=== PATIENT | male | born 1960 | race Caucasian/White ===

== ENCOUNTER → 2017-03-13 | Outpatient (CLI) | payer OTHER ==
[2017-03-13 12:40] LABS: Basophils % (A) 0 %; CH 35.1; CHCM 35.2; Eosinophils # (A) 0.1 k/uL (0-0.7); Eosinophils % (A) 2 %; HCT 38.9 % (39.0-53.0); HDW 2.48; HGB 13.6 gm/dL (13.0-17.5); Luc # (Auto) 0.18; Luc % (Auto) 3; Lymphocytes % (A) 17 %; MCH 35.1 pg (25.0-35.0); MCHC 35.1 g/dL (31.0-37.0); Mean Platelet Volume 9.1; Monocytes # (A) 0.6 k/uL (0-1.0); Monocytes % (A) 10 %; Neutrophils # (A) 3.9 k/uL (1.3-7.7); Neutrophils % (A) 68 %; RBC 3.89 m/uL (4.30-5.90); RDW 12.1 % (11.5-15.5); WBC 5.7 k/uL (3.8-10.6); WBC (Perox) 6.07
[2017-03-13 13:28] LABS: Large Platelets Present
== END | disposition home or self-care (01) ==
LOC: LABWHC1 11:44
PROVIDERS: ATTEND Internal Medicine Hematology & Oncology
DX: C04.9 Malignant neoplasm of floor of mouth, unspecified (principal)
CPT/HCPCS: 36415; 85025

== ENCOUNTER 2017-07-19 06:44 | Day surgery (SDC) | payer MEDICAID, OTHER ==
[2017-07-18 09:23] VITALS: BMI 18.7
[~2017-07-19 06:44] MED LIST: ALPRAZolam 0.25 MG TAB PO PRN; ASPIRIN 325 MG TAB PO ONE; SODIUM CHLORIDE 0.9% 1,000 ML in EMPTY BAG 1 BAG IV ONE
[2017-07-19] MEDS ORDERED: LIDOCAINE 2% INJ 20 MG/ML (20 ML MDV) ONE (07:12)
[2017-07-19 07:27] LABS: Basophils % (A) 0 %; CH 34.8; CHCM 35.5; Eosinophils # (A) 0.2 k/uL (0-0.7); Eosinophils % (A) 2 %; HCT 40.4 % (39.0-53.0); HDW 2.36; HGB 13.9 gm/dL (13.0-17.5); Luc # (Auto) 0.16; Luc % (Auto) 2; Lymphocytes # (A) 1.1 k/uL (1.0-4.8); Lymphocytes % (A) 13 %; MCH 33.8 pg (25.0-35.0); MCHC 34.4 g/dL (31.0-37.0); MCV 98.3 fL (80.0-100.0); Mean Platelet Volume 9.4; Monocytes # (A) 0.5 k/uL (0-1.0); Monocytes % (A) 5 %; Neutrophils # (A) 6.7 k/uL (1.3-7.7); Neutrophils % (A) 78 %; RBC 4.11 m/uL (4.30-5.90); RDW 11.8 % (11.5-15.5); WBC 8.5 k/uL (3.8-10.6); WBC (Perox) 8.43
[2017-07-19 08:08] LABS: Manual Review Performed; RBC Morphology Normal
== END 2017-07-19 08:16 | disposition home or self-care (01) ==
LOC: CATHCVL 06:44
PROVIDERS: ATTEND Internal Medicine Cardiovascular Disease
DX: I25.5 Ischemic cardiomyopathy (principal); Z53.8 Procedure and treatment not carried out for other reasons; E11.9 Type 2 diabetes mellitus without complications; Z79.82 Long term (current) use of aspirin; Z79.899 Other long term (current) drug therapy
CPT/HCPCS: 85025

== ENCOUNTER → 2017-09-14 | Outpatient (CLI) | payer MEDICAID, OTHER ==
--- NOTE | 2017-09-15 08:56 | CT ---
EXAMINATION TYPE: CT cervical spine wo con DATE OF EXAM: 09/14/2017 COMPARISON: NONE HISTORY: Cervicalgia. CT DLP: 462 mGycm. Automated Exposure Control for Dose Reduction was Utilized. TECHNIQUE: CT scan of the cervical spine is obtained without contrast, axial images are obtained, sa gittal and coronal reformatted images are also reviewed. FINDINGS: Cervical spine is visualized in its entirety from C1 through upper thoracic levels, demonst rates satisfactory vertebral body heights without evidence of acute fracture. Prevertebral soft tissu e appears within normal limits. The C1-C2 articulation is within normal limits on the coronal images . There is a focal reversal of the usual cervical lordosis from C4 through C7. The facets maintained no rmal alignment. Multilevel facet arthropathy, uncovertebral hypertrophy, anterior osteophytes, interv ertebral disc space narrowing and endplate sclerosis are present. There is resultant mild left neural foraminal narrowing at C2-C3, moderate bilateral neural foraminal narrowing at C3-C4, severe left neural foraminal narrowing at C4-C5, moderate left neural foraminal narrowing at C5-C6, mild bilateral neural foraminal narrowing at C6-C7 and C7-T1. Reversal of the usu al cervical lordosis also creates mild spinal canal stenosis at C5-C6 and C6-C7. Small disc osteophyt e complexes are seen at C2-C3 and C3-C4 without significant spinal canal stenosis. Soft tissue algorithm is limited by patient motion in the upper images including the oropharynx. Surg ical sutures are seen within the right anterior neck. Incidental note is made of carotid calcific ath eromatous changes bilaterally. IMPRESSION: 1. There is no acute fracture or dislocation evident in the cervical spine. 2. Focal reversal of the usual cervical lordosis from C4 through C7 creating mild spinal canal stenos is at C5-C6 and C6-C7. 3. Moderate multilevel degenerative disc disease resulting in variable degrees of neural foraminal st enosis as described above.
--- NOTE | 2017-09-15 08:58 | CT ---
EXAMINATION TYPE: CT lumbar spine wo con DATE OF EXAM: 09/14/2017 COMPARISON: NONE HISTORY: Lumbago. CT DLP: 920 mGycm CONTRAST: None TECHNIQUE: CT of the lumbar spine is performed on a spiral scan at 3 mm thick sections. Reconstructed images are performed in the coronal and sagittal planes. FINDINGS: T11-T12: No focal disc herniation or significant disc bulge is evident. No spinal canal stenosis or neural foraminal stenosis is present. Schmorl's node is at the superior endplate of T11. T12-L1: No focal disc herniation or significant disc bulge is evident. No spinal canal stenosis or neural foraminal stenosis is present. Schmorl's node at the superior endplate of T12. L1-L2: There is loss of disc height to this level. Vacuum disc phenomenon is present. Posterior endpl ate spurring has mild anterior thecal sac compression. No AP spinal canal stenosis present. Neural fo ramen are patent. L2-L3: There is loss of disc height with vacuum disc phenomenon present. Posterior endplate spurring is present has mild anterior thecal sac compression. No AP spinal canal stenosis is present. Right fo raminal narrowing is present. L3-L4: Posterior endplate spurring is present with mild to moderate anterior thecal sac compression. Spinal canal narrowing without stenosis present. Ligamentum flavum laxity has posterior lateral theca l sac compression. Facet degenerative changes are present. Moderate Right foraminal narrowing is pres ent. L4-L5: Vacuum disc phenomenon and loss of disc height is present. Endplate spurring with associated d isc material has moderate anterior thecal sac compression. No AP spinal canal stenosis present. Bilat eral severe foraminal narrowing is present. L5-S1: Posterior endplate spurring is present. There is associated disc material with mild anterior t hecal sac compression. No AP spinal canal stenosis is present. There is loss of disc height and vacuu m disc phenomenon present. Disc bulging into the bilateral foramen contributing to foraminal stenosis greater on the left. Vertebral alignment appears straightened.. IMPRESSION: 1. Multilevel degenerative disc changes with loss of disc height and vacuum disc phenomenon. 2. Endplate spurring with some associated residual disc material has mild to moderate anterior thecal sac compression throughout the lumbar spine. No stenosis is present. 3. Foraminal narrowing due to endplate spurring and disc material through the lumbar spine increasing into the lower lumbar spine, greatest at L5-S1.
== END | disposition home or self-care (01) ==
LOC: RADCTMAIN 17:36
PROVIDERS: ATTEND Psychiatry & Neurology Neurology
DX: M48.02 Spinal stenosis, cervical region (principal); M99.71 Connective tissue and disc stenosis of intervertebral foramina of cervical region; M99.73 Connective tissue and disc stenosis of intervertebral foramina of lumbar region; M50.30 Other cervical disc degeneration, unspecified cervical region; M47.816 Spondylosis without myelopathy or radiculopathy, lumbar region; M46.06 Spinal enthesopathy, lumbar region; M43.8X2 Other specified deforming dorsopathies, cervical region; G95.29 Other cord compression
CPT/HCPCS: 72125; 72131

== ENCOUNTER 2017-10-10 20:39 | Emergency (ER) | payer OTHER ==
[2017-10-10 21:03] VITALS: BP 100/59; PULSE 107; RESP 18; TEMP 97.6
--- NOTE | 2017-10-10 21:28 | ED ---
General Adult HPI - General Chief complaint: Recheck/Abnormal Lab/Rx Stated complaint: Feeding Tube came out Time Seen by Provider: 10/10/17 21:17 Source: patient, RN notes reviewed Mode of arrival: ambulatory Limitations: no limitations - History of Present Illness Initial comments: This is a 57-year-old male who presents to the emergency department with chief complaint of loss of feeding tube. Patient states that approximately 30 minutes prior to arrival he coughed and his feeding tube accidentally dislodged from his abdomen. Patient states that this feeding tube has been present since last October. Patient denies any issues with his feeding tube. He denies any abdominal pain, nausea or vomiting. He has no other complaints. I asked patient which doctor he follows up with regarding his feeding tube and patient states that his surgeon is in [place]. - Related Data Home Medications Medication Instructions Recorded Confirmed Baclofen [Lioresal] 10 mg PO HS 07/18/17 08/08/17 Chlorhexidine Gluconate [Periogard] 15 ml PO DAILY 07/18/17 08/08/17 Gabapentin Oral Soln [Neurontin 10 ml PO Q8H 07/18/17 08/08/17 Oral Soln] HYDROcodone/APAP 7.5-325MG [[place] 1 tab PO Q6HR PRN 07/18/17 08/08/17 7.5-325] LORazepam [Ativan] 2 mg PO DAILY PRN 07/18/17 08/08/17 Melatonin 10 mg PO HS 07/18/17 08/04/17 Valproic Acid Oral Soln [Depakene 10 ml PO Q8H 07/18/17 08/08/17 Syrup] Allergies Allergy/AdvReac Type Severity Reaction Status Date / Time No Known Allergies Allergy Verified 10/10/17 20:58 Review of Systems ROS Statement: Those systems with pertinent positive or pertinent negative responses have been documented in the HPI. ROS Other: All systems not noted in ROS Statement are negative. Past Medical History Past Medical History: Cancer, COPD, Myocardial Infarction ([place]) History of Any Multi-Drug Resistant Organisms: None Reported Additional Past Surgical History / Comment(s): trachestomy Past Psychological History: No Psychological Hx Reported Smoking Status: Current every day smoker Past Alcohol Use History: Occasional Past Drug Use History: None Reported General Exam - General Exam Comments Initial Comments: General: Awake and alert, well-developed; in no apparent distress. HEENT: Head atraumatic, normocephalic. Pupils are equal, round and reactive to light. Extraocular movements intact. Neck: Tracheostomy present and intact with surrounding bandage. Cardiovascular: Regular rate and rhythm. No murmurs, rubs or gallops. Chest symmetrical. Respiratory: Lungs clear to auscultation bilaterally. No wheezes, rales or rhonchi. Normal respiratory effort with no use of accessory muscles. Abdomen: Soft, non-tender, non-distended. No rigidity, rebound or guarding. Normal bowel sounds in all 4 quadrants. Musculoskeletal: Normal ROM, no tenderness bilateral upper and lower extremities. Ambulating normally. Skin: [place], warm and dry without rashes or lesions. Neurological: Alert and oriented x3. CN II-XII grossly intact. Speech is fluent and answers are appropriate. No focal neuro deficits. Psychiatric: Normal mood and affect. No overt signs of depression or anxiety noted. Limitations: no limitations Course Vital Signs 10/10/17 20:58 Temperature 97.6 F Pulse Rate 107 H Respiratory 18 Rate Blood Pressure 100/59 O2 Sat by Pulse 96 Oximetry - Reevaluation(s) Reevaluation #1: One attempt was made by physician assistant professor of dramaOwen to place a 20-gauge feeding tube. This was unsuccessful. A 14-ivorian Turcios catheter tube was placed successfully by Dr. Rojas. 10/10/17 22:35 Medical Decision Making - Medical Decision Making This is a 57-year-old male who presents to the emergency department with chief complaint of his feeding tube coming out. Several attempts were made to replace the feeding tube, however the material we have is too large. A 14 ivorian turcios cathether was successfully placed. Patient is to call his surgeon tomorrow morning and set up an appointment for follow-up. Patient is in no acute distress and will be discharged home. He is in agreement with plan and voices understanding. All questions were answered. Disposition Clinical Impression: Complication of feeding tube Disposition: HOME SELF-CARE Condition: Good Instructions: How to Use and Care for Your PEG Tube (ED) Additional Instructions: Please call your surgeon tomorrow morning and schedule a follow-up. Please follow up with primary care provider within 1-2 days. Return to emergency department if symptoms should worsen or any concerns arise. Referrals: Alina Campos MD [Primary Care Provider] - 1-2 days Time of Disposition: 22:47
== END 2017-10-10 22:55 | disposition home or self-care (01) ==
LOC: EC 20:39
DX: K94.23 Gastrostomy malfunction (principal); F17.200 Nicotine dependence, unspecified, uncomplicated; Z85.9 Personal history of malignant neoplasm, unspecified; Z79.899 Other long term (current) drug therapy
CPT/HCPCS: 99282

== ENCOUNTER → 2018-01-08 | Outpatient (CLI) | payer MEDICAID, OTHER ==
[2018-01-08 12:59] LABS: HCT 45.8 % (39.0-53.0); HGB 15.4 gm/dL (13.0-17.5); MCH 34.1 pg (25.0-35.0); MCHC 33.6 g/dL (31.0-37.0); MCV 101.3 fL (80.0-100.0); Mean Platelet Volume 7.8; Platelet Count 105 k/uL (150-450); RBC 4.52 m/uL (4.30-5.90); WBC 10.4 k/uL (3.8-10.6)
[2018-01-08 13:11] LABS: Anion Gap 12 mmol/L; Blood Urea Nitrogen 20 mg/dL (9-20); Carbon Dioxide 30 mmol/L (22-30); Chloride 89 mmol/L (98-107); Potassium 4.6 mmol/L (3.5-5.1); Sodium 131 mmol/L (137-145)
== END | disposition home or self-care (01) ==
LOC: LABPAT 12:45
PROVIDERS: ATTEND Internal Medicine Cardiovascular Disease
DX: Z01.812 Encounter for preprocedural laboratory examination (principal); R07.9 Chest pain, unspecified
CPT/HCPCS: 36415; 80051; 82565; 84520; 85027

== ENCOUNTER 2018-01-11 06:30 | Day surgery (SDC) | payer MEDICAID, OTHER ==
[2018-01-10 09:00] VITALS: BMI 18.6
--- NOTE | 2018-01-10 13:37 | HP ---
HISTORY AND PHYSICAL This is a 57-year-old gentleman with history of oral cancer, who was initially referred to me for preop cardiac evaluation prior to reconstructive surgery. A stress test revealed ischemic cardiomyopathy and he was advised to undergo cardiac catheterization. The patient had severe thrombocytopenia due to which his cardiac catheterization was held up. He has subsequently been seen by coin collector and was started on steroids with which the platelet count has improved. He will undergo cardiac catheterization by me tomorrow, understands risks, benefits and alternatives. PAST MEDICAL HISTORY: Significant for oral cancer. MEDICATIONS: Medications include hydrocodone, lorazepam, , metoprolol, . ALLERGIES: No known drug allergies. FAMILY HISTORY: Significant for premature coronary artery disease. SOCIAL HISTORY: He denies current smoking, EtOH abuse, or drug abuse. REVIEW OF SYSTEMS: HEENT: As described above. CARDIAC: Negative. RESPIRATORY: Significant shortness of breath. GI: Negative. GENITOURINARY: Negative. ALLERGY/IMMUNOLOGY: Negative. SKIN: Negative. MUSCULOSKELETAL: Significant for arthritis. PSYCHOSOCIAL: Negative. ENDOCRINE: Negative. DERM: Negative. CONSTITUTIONAL: Negative. ONCOLOGICAL: Negative. Rest of the system review is not relevant. PHYSICAL EXAM: On exam, patient is comfortable at rest. Vital signs are stable. There is no jugular venous distention. Chest exam reveals diminished air entry at the bases. Heart exam reveals first and second heart sounds. Systolic murmur at the apex. Abdomen is soft and nontender. Examination of the extremities did not reveal any edema. Peripheral pulses are palpable. ASSESSMENT: 1. Ischemic cardiomyopathy. 2. Preoperative cardiac evaluation. PLAN: Patient will undergo cardiac catheterization by me. COLBY / TELLY: [id number] /
[~2018-01-11 06:30] MED LIST changes: +ALPRAZolam 0.5 MG TAB PO PRN; -ASPIRIN 325 MG TAB PO ONE; +ASPIRIN 325 MG TAB PO STA; +ATORVASTATIN 80 MG TAB PO STA; +NITROGLYCERIN SL TABS 0.4 MG TAB SUBLINGUAL PRN
[2018-01-11 07:09] VITALS: TEMP 97.4
[2018-01-11] MEDS ORDERED: LIDOCAINE 2% INJ 20 MG/ML (20 ML MDV) ONE (07:17)
[2018-01-11] MEDS ORDERED: MIDAZOLAM 2 MG/2 ML VIAL ONE (07:30)
[2018-01-11] MEDS ORDERED: MIDAZOLAM 2 MG/2 ML VIAL IV ONE (07:31)
[2018-01-11] MEDS ORDERED: LIDOCAINE 2% INJ 20 MG/ML SQ ONE (07:34)
[2018-01-11] MEDS ORDERED: IOPAMIDOL-370 50ML BTL INJ ONE (07:51)
[2018-01-11] MEDS ORDERED: IOPAMIDOL-370 125ML BTL INJ ONE (07:51)
[2018-01-11] MEDS ORDERED: RX INFO: IV CONTRAST WAS GIVEN 1 EACH MISC MISCELLANE PRN (08:01)
[2018-01-11] MEDS ORDERED: SODIUM CHLORIDE 0.9% 1,000 ML IV SCH (08:15)
--- NOTE | 2018-01-11 08:35 | CC ---
CARDIAC CATHETERIZATION REPORT INDICATION: Ischemic cardiomyopathy. This is a 57-year-old gentleman who was initially referred to sd for preop cardiac evaluation prior to reconstructive orofacial surgery following treatment for oral cancer. The patient has a tracheostomy. His initial evaluation revealed ischemic cardiomyopathy and he was advised to undergo cardiac catheterization. However, the patient's platelet count was very low, recently had been treated with steroids and the platelet count had come up and was advised to proceed with cardiac catheterization. He had been explained of risks, benefits and alternatives, including the risk of bleeding. The patient is currently on aspirin and metoprolol, which are the only 2 pills he is able to take. PROCEDURE NOTE: After obtaining informed consent, left heart catheterization, coronary angiogram and LV gram are performed via the right femoral artery using standard Tish catheters. The patient tolerated the procedure well without any obvious immediate complications. A femoral angiogram was performed and decision was made for manual hemostasis. The patient received moderate conscious sedation and the total sedation time was 22 minutes. FINDINGS: 1. HEMODYNAMICS: Left ventricular end-diastolic pressure is 8 to 10 mm. There is no significant gradient across the aortic valve. 2. LEFT VENTRICULOGRAM: Left ventriculogram is performed in SHAH position and shows a dilated left ventricle with severe LV dysfunction with an ejection fraction of 25%. There is evidence of prior extensive inferior wall myocardial infarction. 3. ANGIOGRAPHIC DATA: 4. Left main coronary artery: Left main coronary artery appears heavily calcified. There is mild to moderate atherosclerotic plaque in the ostial portion. However, the stenosis does not seem significant. There is good of the dye and we do not see any significant ventricularization. It divides into left anterior descending coronary artery and circumflex coronary artery, both of which are heavily calcified. There is mild to moderate atherosclerotic plaque involving LAD. Circumflex coronary artery shows a focal 95% stenosis in its proximal part. In its midportion, it is totally occluded and there are collaterals to the distal circumflex coronary artery from the left system. Right coronary artery is a small nondominant vessel. CONCLUSION: 1. Three-vessel coronary artery disease as described above with chronic total occlusion of the mid circumflex coronary artery with [id number] collaterals to the distal circumflex coronary artery. 2. Mild moderate atherosclerotic plaque involving the left main and left anterior descending artery. PLAN: The patient's vessels are not amenable to catheter based revascularization at this time. He will be managed with medical therapy and will proceed with his noncardiac surgery understanding that he is at increased risk for perioperative cardiac events. I am going to have the on-call fish roe technician review the angiographic data. COLBY / TELLY: [id number] /
[2018-01-11 08:51] VITALS: RESP 16
[2018-01-11 14:44] VITALS: BP 118/79; PULSE 75
== END 2018-01-11 15:32 | disposition home or self-care (01) ==
LOC: CATHCVL 06:30
PROVIDERS: ATTEND Internal Medicine Cardiovascular Disease
DX: I25.10 Atherosclerotic heart disease of native coronary artery without angina pectoris (principal); I25.82 Chronic total occlusion of coronary artery; I25.5 Ischemic cardiomyopathy; Z82.49 Family history of ischemic heart disease and other diseases of the circulatory system; Z79.82 Long term (current) use of aspirin; Z79.899 Other long term (current) drug therapy
CPT/HCPCS: 93458; C1894; C1769; J2001; J2250; Q9967 ×2

== ENCOUNTER 2018-03-12 19:56 | Emergency (ER) | payer MEDICAID, OTHER ==
--- NOTE | 2018-03-12 21:09 | ED ---
General Adult HPI - General Chief complaint: Extremity Injury, Lower Stated complaint: Fall/Leg Pain Time Seen by Provider: 03/12/18 20:52 Source: patient, family, RN notes reviewed Mode of arrival: wheelchair Limitations: physical limitation - History of Present Illness Initial comments: Patient 57-year-old male presented to the emergency room today with chief complaint of his right knee giving out 2 days ago. Patient states that he gave out and he landed right on top of the knee. He states that his had a difficult time with ambulation since. Patient does admit to some pain down into the right ankle and foot as well. He states since swelling to his feet bilaterally last few days. He denies any other complaints or injuries. Patient denies any recent fever, chills, shortness of breath, chest pain, back pain, abdominal pain , headaches or visual changes, or any other complaints. - Related Data Home Medications Medication Instructions Recorded Confirmed Baclofen [Lioresal] 10 mg PEG/G-TUBE HS 07/18/17 01/11/18 Chlorhexidine Gluconate [Periogard] 15 ml PEG/G-TUBE DAILY 07/18/17 01/11/18 Gabapentin Oral Soln [Neurontin 10 ml PEG/G-TUBE Q8H 07/18/17 01/11/18 Oral Soln] HYDROcodone/APAP 7.5-325MG [[place] 1 tab PEG/G-TUBE Q6HR PRN 07/18/17 01/11/18 7.5-325] LORazepam [Ativan] 2 mg PEG/G-TUBE DAILY PRN 07/18/17 01/11/18 Melatonin 10 mg PEG/G-TUBE HS PRN 07/18/17 01/10/18 Valproic Acid Oral Soln [Depakene 10 ml PEG/G-TUBE Q8H 07/18/17 01/11/18 Syrup] Aspirin [Adult Low Dose Aspirin EC] 81 mg PEG/G-TUBE DAILY 01/10/18 01/11/18 Metoprolol Tartrate [Lopressor] 12.5 mg PEG/G-TUBE BID 01/10/18 01/11/18 predniSONE 20 mg PEG/G-TUBE BID 01/10/18 01/11/18 Allergies Allergy/AdvReac Type Severity Reaction Status Date / Time No Known Allergies Allergy Verified 01/10/18 08:46 Review of Systems ROS Statement: Those systems with pertinent positive or pertinent negative responses have been documented in the HPI. ROS Other: All systems not noted in ROS Statement are negative. Past Medical History Past Medical History: Cancer, COPD, Myocardial Infarction ([place]) History of Any Multi-Drug Resistant Organisms: None Reported Past Surgical History: Heart Catheterization Additional Past Surgical History / Comment(s): trachestomy, oral surgery for cancer removal, Past Psychological History: Depression Smoking Status: Current every day smoker Past Alcohol Use History: Occasional Past Drug Use History: None Reported General Exam - General Exam Comments Initial Comments: General: The patient is awake and alert, in no distress, and does not appear acutely ill. Neck: The neck is supple, there is no tenderness or JVD. Cardiovascular: There is a regular rate and rhythm. No murmur, rub or gallop is appreciated. Respiratory: Lungs are clear to auscultation, respirations are non-labored, breath sounds are equal. No wheezes, stridor, rales, or rhonchi. Musculoskeletal: Good range of motion. Mild tenderness to the distal aspect of the right foot over the first and second metatarsals. Patient does have mild tenderness over the anterior right knee. Pedal pulse 2+ bilaterally. Neurological: A&O x 3. CN II-XII intact, There are no obvious motor or sensory deficits. Coordination appears grossly intact. Speech is normal. Skin: Skin is warm and dry and no rashes or lesions are noted. Psychiatric: Normal mood and affect. Limitations: physical limitation Course Vital Signs 03/12/18 03/12/18 20:11 21:15 Temperature 97 F L Pulse Rate 111 H 112 H Respiratory 18 22 Rate Blood Pressure 107/53 107/68 O2 Sat by Pulse 95 95 Oximetry Medical Decision Making - Medical Decision Making Patient's x-rays reviewed and does show a nondisplaced spiral fracture of the tibia with possible fracture to the fibula head. Results were discussed with the patient. Patient does take [place] at home and uses a pill employment educational coord which he states broken he's been unable to his [place]. Patient endorsed pain medication here in emergency room. He is advised follow-up with orthopedics. Given a prescription for crutches. Patient's heart rate mildly elevated here in the emergency room but is been out of his pain medication. Patient also admits does not like hospitals. Disposition Clinical Impression: Tibia fracture Disposition: HOME SELF-CARE Condition: Good Instructions: Leg Fracture (ED) Additional Instructions: Please follow-up orthopedics tomorrow. Please place until follow-up appointment using crutches with nonweightbearing. Please return to emergency room for any concerns. Is patient prescribed a controlled substance at d/c from ED?: No Referrals: Alina Capmos MD [Primary Care Provider] - 1-2 days Giorgio Padilla MD [STAFF PHYSICIAN] - 1-2 days Time of Disposition: 22:33
[2018-03-12 21:17] VITALS: RESP 22; TEMP 97
--- NOTE | 2018-03-12 21:41 | XR ---
EXAMINATION TYPE: XR ankle complete RT DATE OF EXAM: 03/12/2018 COMPARISON: NONE HISTORY: Ankle pain TECHNIQUE: 3 views FINDINGS: Ankle mortise is anatomic. I see no fracture nor dislocation. Subtalar joint is intact. IMPRESSION: Soft tissue swelling. Otherwise negative right ankle exam.
--- NOTE | 2018-03-12 21:42 | XR ---
EXAMINATION TYPE: XR foot complete RT DATE OF EXAM: 03/12/2018 COMPARISON: NONE HISTORY: Fall. Foot pain. TECHNIQUE: 3 views FINDINGS: Metatarsals appear intact. I see no fracture nor dislocation. IMPRESSION: No acute abnormality of the right foot. Accessory ossicle noted at the base of the fifth metatarsal.
--- NOTE | 2018-03-12 21:46 | XR ---
EXAMINATION TYPE: XR knee complete RT DATE OF EXAM: 03/12/2018 COMPARISON: NONE HISTORY: Knee pain TECHNIQUE: 3 views FINDINGS: I see no fracture nor dislocation at the knee joint. There is oblique fracture proximal sha ft of the tibia. There is vascular calcification. IMPRESSION: Acute oblique fracture proximal shaft of the tibia. There is probably also nondisplaced f racture of the head of the fibula.
--- NOTE | 2018-03-12 21:48 | XR ---
EXAMINATION TYPE: XR tibia fibula RT DATE OF EXAM: 03/12/2018 COMPARISON: NONE HISTORY: Pain. Fall. TECHNIQUE: 4 views FINDINGS: There is nondisplaced spiral fracture proximal shaft of the tibia. Ankle joint appears inta ct. IMPRESSION: Nondisplaced fracture of the proximal tibia.
[2018-03-12] MEDS ORDERED: MORPHINE SULFATE 4 MG/ML SYRINGE IM STA (22:31)
[2018-03-12 22:36] VITALS: BP 104/65; PULSE 105
== END 2018-03-12 22:53 | disposition home or self-care (01) ==
LOC: EC 19:56
DX: S82.244A Nondisplaced spiral fracture of shaft of right tibia, initial encounter for closed fracture (principal); I25.2 Old myocardial infarction; F32.9 Major depressive disorder, single episode, unspecified; F17.200 Nicotine dependence, unspecified, uncomplicated; Z98.890 Other specified postprocedural states; Z79.52 Long term (current) use of systemic steroids; Z79.82 Long term (current) use of aspirin; Z79.899 Other long term (current) drug therapy; W18.39XA Other fall on same level, initial encounter; Y92.000 Kitchen of unspecified non-institutional (private) residence as the place of occurrence of the external cause; Y93.01 Activity, walking, marching and hiking
CPT/HCPCS: 73590; 73562; 73610; 73630; 99283; 29505; 96372; J2270

== ENCOUNTER → 2018-03-16 | Outpatient (CLI) | payer MEDICAID, OTHER ==
--- NOTE | 2018-03-16 10:50 | MR ---
EXAMINATION TYPE: MR brain wo/w con DATE OF EXAM: 03/16/2018 COMPARISON: None HISTORY: Syncope TECHNIQUE: Multiplanar, multisequence images of the brain and brainstem is performed without and with IV contras t, utilizing 7.5 mL intravenous Gadavist . FINDINGS: Diffusion weighted images demonstrate no evidence of a recent infarct or other diffusion ab normality. There is a nasal septal deviation and changes of chronic sinusitis. Nodular pattern to the right MCA may represent a small 2 mm aneurysm. There is mild to moderate generalized degenerative change. Midline structures demonstrate normal morp hology. The craniocervical junction appears within normal limits. Post contrast images demonstrate no abnormal enhancement. Signal seen adjacent to the cerebellar tentorium bilaterally appears to be artifactual White matter: There is mild confluent areas of abnormal signal surrounding both ventricles. Approximately 15 areas of abnormal signal scattered throughout the white matter bilaterally. The larg est within the left parietal lobe measuring 6 mm. No enhancing lesions No callosal lesions. IMPRESSION: 1. Nonspecific white matter changes consistent E seen with remote microvascular ischemia. Other etiol ogies including demyelinating process not excluded. 2. The nodular prominence the right MCA bifurcation. Correlate with MRA enterprise of [place] exclude smal l aneurysm.
== END | disposition home or self-care (01) ==
LOC: RADMRIMAIN 09:24
PROVIDERS: ATTEND Psychiatry & Neurology Pain Medicine
DX: R90.82 White matter disease, unspecified (principal)
CPT/HCPCS: 70553; A9581

== ENCOUNTER 2018-03-30 14:47 | Emergency (ER) | payer MEDICAID, OTHER ==
[2018-03-30 15:02] VITALS: BP 112/61; PULSE 117; RESP 18
--- NOTE | 2018-03-30 15:17 | ED ---
General Adult HPI - General Chief complaint: Recheck/Abnormal Lab/Rx Stated complaint: Throat Pic came out Time Seen by Provider: 03/30/18 15:09 Source: patient, RN notes reviewed, old records reviewed Mode of arrival: wheelchair Limitations: no limitations - History of Present Illness Initial comments: 67-year-old male presents for PEG tube evaluation. Patient states that this morning his PEG tube came out. He states that yesterday evening he felt a pop and has been loose since that time. She has no other complaints. PEG tube balloon is ruptured. - Related Data Home Medications Medication Instructions Recorded Confirmed Baclofen [Lioresal] 10 mg PEG/G-TUBE HS 07/18/17 03/30/18 Chlorhexidine Gluconate [Periogard] 15 ml PEG/G-TUBE DAILY 07/18/17 03/30/18 Gabapentin Oral Soln [Neurontin 10 ml PEG/G-TUBE Q8H 07/18/17 03/30/18 Oral Soln] HYDROcodone/APAP 7.5-325MG [[place] 1 tab PEG/G-TUBE Q6HR PRN 07/18/17 03/30/18 7.5-325] LORazepam [Ativan] 2 mg PEG/G-TUBE DAILY PRN 07/18/17 03/30/18 Melatonin 10 mg PEG/G-TUBE HS PRN 07/18/17 03/30/18 Valproic Acid Oral Soln [Depakene 10 ml PEG/G-TUBE Q8H 07/18/17 03/30/18 Syrup] Aspirin [Adult Low Dose Aspirin EC] 81 mg PEG/G-TUBE DAILY 01/10/18 03/30/18 Metoprolol Tartrate [Lopressor] 12.5 mg PEG/G-TUBE BID 01/10/18 03/30/18 predniSONE 20 mg PEG/G-TUBE BID 01/10/18 03/30/18 Allergies Allergy/AdvReac Type Severity Reaction Status Date / Time No Known Allergies Allergy Verified 03/30/18 15:02 Review of Systems ROS Statement: Those systems with pertinent positive or pertinent negative responses have been documented in the HPI. ROS Other: All systems not noted in ROS Statement are negative. Past Medical History Past Medical History: Cancer, COPD, Myocardial Infarction ([place]) History of Any Multi-Drug Resistant Organisms: None Reported Past Surgical History: Heart Catheterization Additional Past Surgical History / Comment(s): trachestomy, oral surgery for cancer removal, Past Psychological History: Depression Smoking Status: Current every day smoker Past Alcohol Use History: Occasional Past Drug Use History: None Reported General Exam Limitations: no limitations General appearance: alert, in no apparent distress Head exam: Present: atraumatic, normocephalic Eye exam: Present: normal appearance, PERRL Neck exam: Present: other (Tracheostomy) Respiratory exam: Present: normal lung sounds bilaterally. Absent: respiratory distress Cardiovascular Exam: Present: normal rhythm, tachycardia GI/Abdominal exam: Present: soft, other (PEG tube os not erythematous, no surrounding cellulitis,). Absent: distended, tenderness Course Vital Signs 03/30/18 15:01 Pulse Rate 117 H Respiratory 18 Rate Blood Pressure 112/61 O2 Sat by Pulse 98 Oximetry Medical Decision Making - Medical Decision Making PEG tube is replaced with a 16-Kazakh, 5 mL balloon. This was the only PEG tube available in the emergency department. X-ray obtained with contrast revealing gastric placement no extravasation. Disposition Clinical Impression: PEG tube malfunction Disposition: HOME SELF-CARE Condition: Fair Instructions: How to Use and Care for Your PEG Tube (ED) Is patient prescribed a controlled substance at d/c from ED?: No Referrals: Alina Campos MD [Primary Care Provider] - 1-2 days Time of Disposition: 16:04
--- NOTE | 2018-03-30 16:04 | XR ---
EXAMINATION TYPE: XR KUB DATE OF EXAM: 03/30/2018 3:55 PM CLINICAL HISTORY: Reinsertion of a percutaneous enteric gastric tube. Tube placement. TECHNIQUE: Single supine KUB image of the abdomen is obtained after instillation of 30 mL of dilute I sovue 370. The percutaneous enteric gastric tube. COMPARISON: None. FINDINGS: Contrast is injected through the percutaneous enteric gastric tube opacifying the gastric b kathia and fundus with rugal folds identified. No contrast extravasation is seen. No dilated bowel is se en. Lung bases are clear. There is a levoscoliotic curvature with extensive multilevel degenerative c hanges of the lumbar spine and atherosclerosis of the abdominal aorta and its branches. Extensive deg enerative changes of the femoral acetabular joints are also seen. The liver appears elongated extendi ng past the right iliac process, however this could be positional. IMPRESSION: 1. Appropriately placed percutaneous enteric gastric tube overlying the gastric body with injection o f contrast and opacification of the gastric body and fundus. No evidence of contrast extravasation. 2. Nonobstructive bowel gas pattern.
== END 2018-03-30 16:42 | disposition home or self-care (01) ==
LOC: EC 14:47
DX: K94.23 Gastrostomy malfunction (principal); I25.2 Old myocardial infarction; F32.9 Major depressive disorder, single episode, unspecified; F17.200 Nicotine dependence, unspecified, uncomplicated; Z85.819 Personal history of malignant neoplasm of unspecified site of lip, oral cavity, and pharynx; Z79.82 Long term (current) use of aspirin; Z79.52 Long term (current) use of systemic steroids; Z79.899 Other long term (current) drug therapy; Z95.818 Presence of other cardiac implants and grafts
CPT/HCPCS: 74018; 99284; 43760; Q9967

== ENCOUNTER → 2018-04-12 | Day surgery (SDC) | payer MEDICAID, OTHER ==
[2018-04-10 12:05] VITALS: BMI 20.3
[~2018-04-12] MED LIST changes: -ALPRAZolam 0.25 MG TAB PO PRN; -ALPRAZolam 0.5 MG TAB PO PRN; -ASPIRIN 325 MG TAB PO STA; -ATORVASTATIN 80 MG TAB PO STA; +LACTATED RINGERS 1,000 ML IV SCH; +LIDOCAINE 1% 20 ML VIAL (10MG/ML) FOR IV START INTRADERMA ONE; +LIDOCAINE 1% INJ 10MG/ML (20 ML MDV) ONE; -NITROGLYCERIN SL TABS 0.4 MG TAB SUBLINGUAL PRN; +PROPOFOL 10 MG/ML 20 ML VIAL IV ONE; -SODIUM CHLORIDE 0.9% 1,000 ML in EMPTY BAG 1 BAG IV ONE
[2018-04-12 12:00] VITALS: TEMP 97.5
[2018-04-12 13:10] VITALS: BP 103/62; PULSE 95; RESP 18
--- NOTE | 2018-04-12 14:16 | P.PCN ---
Date of Procedure: 04/12/18 Procedure(s) Performed: Procedure: Esophagogastroduodenoscopy and replacement of gastrostomy feeding tube. Preoperative diagnosis: Feeding tube malfunction. Postoperative diagnosis: 1. Replacement of a 16-Danish DAMON balloon feeding tube with 18-Danish 1.7 cm button feeding tube. 2. Upper endoscopy revealed button feeding tube in good position. Preparation and sedation: Was provided by anesthesia. Brief clinical history: The patient is a 57-year-old male with history of oral cancer requiring tracheostomy and gastrostomy feeding for nutritional support, was in the emergency room March 30, because of malfunction and displacement of his feeding tube which was temporarily replaced by a 16-Danish DAMON balloon feeding tube. The patient returns to the endoscopy and it for replacement with the 18-Danish size tube. Procedure: With the patient in the supine position and after informed consent and adequate sedation, the existing feeding tube was removed once the balloon was deflated and the 3-5 mL of fluid removed. I used the obturator to position and 18-Danish 1.7 cm Bard button tube through the tract without difficulty. I then proceeded I performed the EGD to ascertain the proper placement of the tube before it is used for feeding. The Olympus-GIF 160 video upper endoscope was used and was advanced through the cricopharyngeus down the esophagus into the stomach then through the pylorus into the duodenum. The stomach was insufflated with air and inspected in detail. The feeding tube was found in place. There was some distal esophagitis and mild gastritis and duodenitis but no ulcers, bleeding or tumors. The patient tolerated the procedure well. Plan: I explained that to the patient and the family the differences between the balloon tube he had and the button tube we used today. We could make the necessary adjustments in the length of the tube in the future if needed. He will call us if there is any problem.
== END | disposition home or self-care (01) ==
LOC: ORWHC2ENDO 10:39
DX: K94.23 Gastrostomy malfunction (principal); Z85.819 Personal history of malignant neoplasm of unspecified site of lip, oral cavity, and pharynx; K29.70 Gastritis, unspecified, without bleeding; K29.80 Duodenitis without bleeding; J44.9 Chronic obstructive pulmonary disease, unspecified; I25.2 Old myocardial infarction; R56.9 Unspecified convulsions; K21.0 Gastro-esophageal reflux disease with esophagitis; Z79.891 Long term (current) use of opiate analgesic; Z79.82 Long term (current) use of aspirin; Z79.899 Other long term (current) drug therapy
CPT/HCPCS: 43246; J2001; J2704; B4087

== ENCOUNTER 2018-04-26 15:34 | Emergency (ER) | payer MEDICAID, OTHER ==
[2018-04-26 16:09] VITALS: BP 89/61; PULSE 133; RESP 18; TEMP 98.6
[2018-04-26] MEDS ORDERED: SODIUM CHLORIDE 0.9% 1,000 ML IV ONE (17:36)
[2018-04-26 18:45] LABS: Basophils # (A) 0.1 k/uL (0-0.2); Basophils % (A) 1 %; Eosinophils # (A) 0.2 k/uL (0-0.7); Eosinophils % (A) 2 %; HCT 43.2 % (39.0-53.0); HGB 14.2 gm/dL (13.0-17.5); Lymphocytes # (A) 1.1 k/uL (1.0-4.8); Lymphocytes % (A) 15 %; MCH 32.9 pg (25.0-35.0); MCHC 32.9 g/dL (31.0-37.0); Mean Platelet Volume 7.4; Monocytes # (A) 0.7 k/uL (0-1.0); Monocytes % (A) 9 %; Neutrophils # (A) 5.4 k/uL (1.3-7.7); Neutrophils % (A) 71 %; Platelet Count 156 k/uL (150-450); RBC 4.32 m/uL (4.30-5.90); RDW 11.7 % (11.5-15.5); WBC 7.5 k/uL (3.8-10.6)
[2018-04-26 18:58] LABS: ALT 23 U/L (21-72); AST 24 U/L (17-59); Albumin 4.1 g/dL (3.5-5.0); Alkaline Phosphatase 81 U/L (38-126); Anion Gap 9 mmol/L; Blood Urea Nitrogen 9 mg/dL (9-20); Calcium 10.2 mg/dL (8.4-10.2); Carbon Dioxide 26 mmol/L (22-30); Chloride 99 mmol/L (98-107); Glucose 87 mg/dL (74-99); Potassium 4.5 mmol/L (3.5-5.1); Sodium 134 mmol/L (137-145); Total Bilirubin 0.6 mg/dL (0.2-1.3); Total Protein 7.7 g/dL (6.3-8.2)
--- NOTE | 2018-04-26 18:58 | ED ---
General Adult HPI <Salvador Garcia - Last Filed: 04/26/18 21:11> - General Source: patient, family, RN notes reviewed Mode of arrival: wheelchair Limitations: no limitations <Kathleen Baca - Last Filed: 04/27/18 11:43> - General Chief complaint: Skin/Abscess/Foreign Body Stated complaint: peg tube problems Time Seen by Provider: 04/26/18 17:01 - History of Present Illness Initial comments: 57-year-old male with past medical history of oral pharynx cancer and coronary artery disease who presents today for chief complaint Headache tube dysfunction 2 days. Patient states that he had a peg tube replacement in October 2017 a [place] 18. However it was recently replaced April 13 2018 with a button by his GI doctor [facility] because they do not have a [place] 18 in office. Patient states that since Monday he has not mild or service feeding to, he states all flushed and that has been leaking at times when he attempts to take medication or food. Patient denies any increasing warmth tenderness at the site of the PEG tube. But he does state that he has noticed some mild redness, that has not been spreading of the PEG tube site. He denies fevers, chills, night sweats , chest pain, dyspnea, dyspnea on exertion. (Kathleen Baca) - Related Data Home Medications Medication Instructions Recorded Confirmed Baclofen [Lioresal] 10 mg PEG/G-TUBE HS 07/18/17 04/26/18 Chlorhexidine Gluconate [Periogard] 15 ml PO DAILY 07/18/17 04/26/18 Gabapentin Oral Soln [Neurontin 10 ml PEG/G-TUBE Q8H 07/18/17 04/26/18 Oral Soln] HYDROcodone/APAP 7.5-325MG [[place] 1 tab PEG/G-TUBE Q6HR PRN 07/18/17 04/26/18 7.5-325] LORazepam [Ativan] 2 mg PEG/G-TUBE DAILY PRN 07/18/17 04/26/18 Melatonin 10 mg PEG/G-TUBE HS PRN 07/18/17 04/26/18 Valproic Acid Oral Soln [Depakene 10 ml PEG/G-TUBE Q8H 07/18/17 04/26/18 Syrup] Aspirin [Adult Low Dose Aspirin EC] 81 mg PEG/G-TUBE DAILY 01/10/18 04/26/18 Amitriptyline HCl 50 mg PEG/G-TUBE HS 04/10/18 04/26/18 Pantoprazole Sodium 40 mg PEG/G-TUBE DAILY 04/10/18 04/26/18 Prochlorperazine [Compazine] 10 mg PEG/G-TUBE Q6H PRN 04/10/18 04/26/18 QUEtiapine [SEROquel] 50 mg PEG/G-TUBE HS PRN 04/10/18 04/26/18 Allergies Allergy/AdvReac Type Severity Reaction Status Date / Time No Known Allergies Allergy Verified 04/26/18 17:19 Review of Systems ROS Other: All systems not noted in ROS Statement are negative. <Salvador Garcia - Last Filed: 04/26/18 21:11> ROS Other: All systems not noted in ROS Statement are negative. <Kathleen Baca - Last Filed: 04/27/18 11:43> ROS Statement: Those systems with pertinent positive or pertinent negative responses have been documented in the HPI. Past Medical History Past Medical History: Cancer, COPD, GERD/Reflux, Myocardial Infarction ([place]), Seizure Disorder Additional Past Medical History / Comment(s): low blood pressure, oral cancer- 2014, "everything through peg tube"-nothing oral(will go to his lungs per pt) all liquid food, current fx rt tibia February 2018- has cast on Last Myocardial Infarction Date:: 2014 History of Any Multi-Drug Resistant Organisms: None Reported Past Surgical History: Heart Catheterization Additional Past Surgical History / Comment(s): trachestomy, oral surgery for cancer removal, Past Anesthesia/Blood Transfusion Reactions: No Reported Reaction Additional Past Anesthesia/Blood Transfusion Reaction / Comment(s): adopted - no family hx Past Psychological History: Anxiety, Depression Smoking Status: Current every day smoker Past Alcohol Use History: Occasional Past Drug Use History: None Reported - Past Family History Mother Family Medical History: Unable to Obtain Additional Family Medical History / Comment(s): pt is adopted <Kathleen Baca - Last Filed: 04/27/18 11:43> General Exam <Salvador Garcia - Last Filed: 04/26/18 21:11> Limitations: no limitations <Kathleen Baca - Last Filed: 04/27/18 11:43> - General Exam Comments Initial Comments: General: The patient is awake and alert, in no distress, and does not appear acutely ill. Pt appears well non toxic. Eye: Pupils are equal, round and reactive to light, extra-ocular movements are intact. No nystagmus. There is normal conjunctiva bilaterally. No signs of icterus. Ears, nose, mouth and throat: There are moist mucous membranes and no oral lesions. Trach in place, no signs of erythema or edema. Cardiovascular: There is a regular rate and rhythm. No murmur, rub or gallop is appreciated. Respiratory: Lungs are clear to auscultation, respirations are non-labored, breath sounds are equal. No wheezes, stridor, rales, or rhonchi. Gastrointestinal: Soft, non-distended, non-tender abdomen without masses or organomegaly noted. There is no rebound or guarding present. No CVA tenderness. Bowel sounds are unremarkable.] Musculoskeletal: Normal ROM, no tenderness. Strength 5/5. Sensation intact. Radial pulses equal bilaterally 2+. Neurological: A&O x 3. CN II-XII intact, There are no obvious motor or sensory deficits. Coordination appears grossly intact. Speech is normal. Skin: Skin is warm and dry and no rashes or lesions are noted. Large scar to right side of chest. Med Port left pectoralis muscle. Psychiatric: Cooperative, appropriate mood & affect, normal judgment. (Kathleen Baca) Vital Signs 04/26/18 16:07 Temperature 98.6 F Pulse Rate 133 H Respiratory 18 Rate Blood Pressure 89/61 O2 Sat by Pulse 96 Oximetry EKG Findings - EKG Comments: EKG Findings:: Ventricular rate 108 beats per minutes, AL interval 146 seconds, to registration a 6 month second QT/QTC 366/490 ms. Sinus tachycardia. No acute ST elevation/ST depression, T wave inversion. <Kathleen Baca - Last Filed: 04/27/18 11:43> Procedures - Feeding Tube Replacement Reason for Replacement: not functioning/damaged Initial Tube Inserted: greater than 2 weeks Type of Tube: gastrostomy Use of Tube: medications and feeding Insertion Site Prior to Procedure: clean Tube Used for Reinsertion: Bard Swedish Tube Size (F): 20 Verification of Placement: auscultation Tube Secured by: G-tube attachment device Patient Tolerated Procedure: well <Salvador Garcia - Last Filed: 04/26/18 21:11> Medical Decision Making - Lab Data Result diagrams: 04/26/18 18:20 04/26/18 18:20 <Salvador Garcia - Last Filed: 04/26/18 21:11> - Lab Data Result diagrams: 04/26/18 18:20 04/26/18 18:20 <Kathleen Baca - Last Filed: 04/27/18 11:43> - Medical Decision Making BP 89/60 however he states he runs normal at low 90s systolic. Pt denied chest pain, chest pressure, abdominal pain, shortness breath, dyspnea on exertion, dizziness, lightheadedness or any other symptoms however given pt cardiac hx and HR 133 EKG was obtained and was reviewed by myself and Dr. Salvador Garcia there was no evidence of ST elevate/ST depression, T-wave abnormalities, no evidence of acute coronary syndrome or arrhythmias. Repeat HR 108, upon review of previous hospital visits pt appears to be have an average HR >100bpm. CBC, CMP stable, mild hypoatremia. Pt given 1000mL of 0.9% NS. Peg tube replaced with [address] Garcia, who examined patient in person and agreed with impression and plan. Pt agreed to larger PEG tube placement prior to procedure. There are no signs of infection at the site of the PEG tube at this time. Pt was instructed to follow up with GI in the next 1-2 days. Patient has a scheduled cardiology appointment at this time we feel patient is stable for discharge. Pt states that he is ready to go home. Pt denied questions upon discharge and verbalized compliance with f/u. (Kathleen Baca) - Lab Data Lab Results 04/26/18 04/26/18 Range/Units 18:20 18:20 WBC 7.5 (3.8-10.6) k/uL RBC 4.32 (4.30-5.90) m/uL Hgb 14.2 (13.0-17.5) gm/dL Hct 43.2 (39.0-53.0) % MCV 100.0 (80.0-100.0) fL MCH 32.9 (25.0-35.0) pg MCHC 32.9 (31.0-37.0) g/dL RDW 11.7 (11.5-15.5) % Plt Count 156 (150-450) k/uL Neutrophils % 71 % Lymphocytes % 15 % Monocytes % 9 % Eosinophils % 2 % Basophils % 1 % Neutrophils # 5.4 (1.3-7.7) k/uL Lymphocytes # 1.1 (1.0-4.8) k/uL Monocytes # 0.7 (0-1.0) k/uL Eosinophils # 0.2 (0-0.7) k/uL Basophils # 0.1 (0-0.2) k/uL Sodium 134 L (137-145) mmol/L Potassium 4.5 (3.5-5.1) mmol/L Chloride 99 (98-107) mmol/L Carbon Dioxide 26 (22-30) mmol/L Anion Gap 9 mmol/L BUN 9 (9-20) mg/dL Creatinine 0.66 (0.66-1.25) mg/dL Est GFR (CKD-EPI)AfAm >90 (>60 ml/min/1.73 sqM) Est GFR (CKD-EPI)NonAf >90 (>60 ml/min/1.73 sqM) Glucose 87 (74-99) mg/dL Calcium 10.2 (8.4-10.2) mg/dL Total Bilirubin 0.6 (0.2-1.3) mg/dL AST 24 (17-59) U/L ALT 23 (21-72) U/L Alkaline Phosphatase 81 (38-126) U/L Total Protein 7.7 (6.3-8.2) g/dL Albumin 4.1 (3.5-5.0) g/dL Disposition <Salvador Garcia - Last Filed: 04/26/18 21:11> Is patient prescribed a controlled substance at d/c from ED?: No Time of Disposition: 20:54 <Kathleen Baca - Last Filed: 04/27/18 11:43> Clinical Impression: PEG tube malfunction Disposition: HOME SELF-CARE Condition: Good Instructions: Percutaneous Endoscopic Gastrostomy (ED) Additional Instructions: Please follow-up with Dr. Caballero or Dr. Chandler in 1-2 days. Please return to emergency room if the symptoms increase or worsen or for any other concerns, as discussed. Referrals: Alina Campos MD [Primary Care Provider] - 1-2 days No Caballero MD [STAFF PHYSICIAN] - 1-2 days
== END 2018-04-26 21:30 | disposition home or self-care (01) ==
LOC: EC 15:34
DX: K94.23 Gastrostomy malfunction (principal); R51 Headache; K21.9 Gastro-esophageal reflux disease without esophagitis; I25.2 Old myocardial infarction; G40.909 Epilepsy, unspecified, not intractable, without status epilepticus; F41.9 Anxiety disorder, unspecified; F32.9 Major depressive disorder, single episode, unspecified; F17.200 Nicotine dependence, unspecified, uncomplicated; Z85.819 Personal history of malignant neoplasm of unspecified site of lip, oral cavity, and pharynx; Z79.82 Long term (current) use of aspirin; Z79.899 Other long term (current) drug therapy
CPT/HCPCS: 36415; 43760; 80053; 85025; 93005; 96360; 96361; 99283

== ENCOUNTER 2018-06-24 20:25 | Inpatient (IN) | payer MEDICAID, OTHER ==
[2018-06-24] MEDS ORDERED: MORPHINE SULFATE 4 MG/ML SYRINGE IV STA (21:07)
--- NOTE | 2018-06-24 21:22 | ED ---
General Adult HPI - General Chief complaint: Recheck/Abnormal Lab/Rx Stated complaint: peg tube issues Time Seen by Provider: 06/24/18 20:50 Source: patient Mode of arrival: wheelchair Limitations: no limitations - History of Present Illness Initial comments: This patient is a 58-year-old man presenting to be evaluated for pain in his side of his PEG tube. The patient states that he has been having pains there, as well as some redness at the site as well as occasional foul-smelling drainage for 2 weeks. The patient states that he thought if he just "toughed things out," that the symptoms would resolve and he would feel better. He states that tonight he just became tired of waiting for it to improve so he resents to have reevaluation. The patient could not tummy the exact date of insertion of the PEG tube however it was changed to a PEG tube with a button on April 12, by Dr. Quintero. The patient was seen here in the emergency department for problem with the PEG tube, and had it replaced on April 26. Patient denies systemic symptoms, including no fever or chills, chest pain or dyspnea. He denies palpitations but triage heart rate is noted to be in the 120s, however he states his heart rate is always high. Onset/Timin -: week(s) Location: abdomen Radiation: non-radiation Quality: aching Consistency: constant Improves with: none Worsens with: none Associated Symptoms: denies other symptoms - Related Data Home Medications Medication Instructions Recorded Confirmed Baclofen [Lioresal] 10 mg PEG/G-TUBE HS 07/18/17 04/26/18 Chlorhexidine Gluconate [Periogard] 15 ml PO DAILY 07/18/17 04/26/18 Gabapentin Oral Soln [Neurontin 10 ml PEG/G-TUBE Q8H 07/18/17 04/26/18 Oral Soln] HYDROcodone/APAP 7.5-325MG [[place] 1 tab PEG/G-TUBE Q6HR PRN 07/18/17 04/26/18 7.5-325] LORazepam [Ativan] 2 mg PEG/G-TUBE DAILY PRN 07/18/17 04/26/18 Melatonin 10 mg PEG/G-TUBE HS PRN 07/18/17 04/26/18 Valproic Acid Oral Soln [Depakene 10 ml PEG/G-TUBE Q8H 07/18/17 04/26/18 Syrup] Aspirin [Adult Low Dose Aspirin EC] 81 mg PEG/G-TUBE DAILY 01/10/18 04/26/18 Amitriptyline HCl 50 mg PEG/G-TUBE HS 04/10/18 04/26/18 Pantoprazole Sodium 40 mg PEG/G-TUBE DAILY 04/10/18 04/26/18 Prochlorperazine [Compazine] 10 mg PEG/G-TUBE Q6H PRN 04/10/18 04/26/18 QUEtiapine [SEROquel] 50 mg PEG/G-TUBE HS PRN 04/10/18 04/26/18 Allergies Allergy/AdvReac Type Severity Reaction Status Date / Time No Known Allergies Allergy Verified 06/24/18 20:32 Review of Systems ROS Statement: Those systems with pertinent positive or pertinent negative responses have been documented in the HPI. ROS Other: All systems not noted in ROS Statement are negative. Constitutional: Denies: fever, chills Respiratory: Denies: cough, dyspnea Cardiovascular: Denies: chest pain, palpitations Gastrointestinal: Reports: as per HPI, abdominal pain. Denies: nausea, vomiting , diarrhea, melena, hematochezia Musculoskeletal: Denies: back pain Skin: Reports: as per HPI. Denies: rash Neurological: Denies: headache, weakness, numbness Past Medical History Past Medical History: Cancer, COPD, GERD/Reflux, Myocardial Infarction ([place]), Seizure Disorder Additional Past Medical History / Comment(s): low blood pressure, oral cancer- 2014, "everything through peg tube"-nothing oral(will go to his lungs per pt) all liquid food, current fx rt tibia February 2018- has cast on Last Myocardial Infarction Date:: 2014 History of Any Multi-Drug Resistant Organisms: None Reported Past Surgical History: Heart Catheterization Additional Past Surgical History / Comment(s): trachestomy, oral surgery for cancer removal, Past Anesthesia/Blood Transfusion Reactions: No Reported Reaction Additional Past Anesthesia/Blood Transfusion Reaction / Comment(s): adopted - no family hx Past Psychological History: Anxiety, Depression Smoking Status: Current every day smoker Past Alcohol Use History: Occasional Past Drug Use History: None Reported - Past Family History Mother Family Medical History: Unable to Obtain Additional Family Medical History / Comment(s): pt is adopted General Exam Limitations: no limitations General appearance: alert, in no apparent distress, cachectic Head exam: Present: atraumatic Respiratory exam: Present: normal lung sounds bilaterally. Absent: respiratory distress, wheezes, rales, rhonchi, stridor Cardiovascular Exam: Present: normal rhythm, tachycardia, normal heart sounds. Absent: systolic murmur, diastolic murmur, rubs, gallop GI/Abdominal exam: Present: soft, other (The patient does have a PEG tube in the left upper quadrant. There does appear to be plus formed body which is eroding through the skin in the process of coming out of the abdomen..). Absent : distended, tenderness, guarding, rebound, rigid, mass Extremities exam: Present: normal inspection, normal capillary refill Skin exam: Present: warm, dry, intact, normal color. Absent: rash Course Vital Signs 06/24/18 06/24/18 20:30 21:40 Temperature 98 F 97.0 F L Pulse Rate 129 H 127 H Respiratory 20 18 Rate Blood Pressure 101/68 114/76 O2 Sat by Pulse 96 97 Oximetry EKG Findings - EKG Comments: EKG Findings:: The 12-lead ECG appears similar to that of 04/26/2018, the patient was also mildly tachycardic at that time. - EKG Results: EKG: interpreted by BUFFY, sinus rhythm, normal axis, normal ST/T EKG shows: tachycardia (Rate approximately 113 bpm) Medical Decision Making - Lab Data Result diagrams: 06/24/18 21:28 06/24/18 21:28 Lab Results 06/24/18 06/24/18 Range/Units 21:28 21:28 WBC 4.6 (3.8-10.6) k/uL RBC 4.64 (4.30-5.90) m/uL Hgb 15.5 (13.0-17.5) gm/dL Hct 45.3 (39.0-53.0) % MCV 97.5 (80.0-100.0) fL MCH 33.4 (25.0-35.0) pg MCHC 34.3 (31.0-37.0) g/dL RDW 12.9 (11.5-15.5) % Plt Count 74 L D (150-450) k/uL Neutrophils % 57 % Lymphocytes % 24 % Monocytes % 10 % Eosinophils % 6 % Basophils % 1 % Neutrophils # 2.6 (1.3-7.7) k/uL Lymphocytes # 1.1 (1.0-4.8) k/uL Monocytes # 0.4 (0-1.0) k/uL Eosinophils # 0.3 (0-0.7) k/uL Basophils # 0.1 (0-0.2) k/uL Sodium 134 L (137-145) mmol/L Potassium 4.5 (3.5-5.1) mmol/L Chloride 96 L (98-107) mmol/L Carbon Dioxide 26 (22-30) mmol/L Anion Gap 12 mmol/L BUN 5 L (9-20) mg/dL Creatinine 0.57 L (0.66-1.25) mg/dL Est GFR (CKD-EPI)AfAm >90 (>60 ml/min/1.73 sqM) Est GFR (CKD-EPI)NonAf >90 (>60 ml/min/1.73 sqM) Glucose 84 (74-99) mg/dL Calcium 9.3 (8.4-10.2) mg/dL Disposition Clinical Impression: PEG tube malfunction, Tachycardia Disposition: ADMITTED IP TO THIS HOSP Condition: Fair Is patient prescribed a controlled substance at d/c from ED?: No
[2018-06-24 21:41] LABS: Basophils # (A) 0.1 k/uL (0-0.2); Basophils % (A) 1 %; Eosinophils # (A) 0.3 k/uL (0-0.7); Eosinophils % (A) 6 %; HCT 45.3 % (39.0-53.0); HGB 15.5 gm/dL (13.0-17.5); Lymphocytes # (A) 1.1 k/uL (1.0-4.8); Lymphocytes % (A) 24 %; MCH 33.4 pg (25.0-35.0); MCHC 34.3 g/dL (31.0-37.0); MCV 97.5 fL (80.0-100.0); Mean Platelet Volume 7.7; Monocytes # (A) 0.4 k/uL (0-1.0); Monocytes % (A) 10 %; Neutrophils # (A) 2.6 k/uL (1.3-7.7); Neutrophils % (A) 57 %; RBC 4.64 m/uL (4.30-5.90); RDW 12.9 % (11.5-15.5); WBC 4.6 k/uL (3.8-10.6)
[2018-06-24 21:50] LABS: Anion Gap 12 mmol/L; Blood Urea Nitrogen 5 mg/dL (9-20); Calcium 9.3 mg/dL (8.4-10.2); Carbon Dioxide 26 mmol/L (22-30); Chloride 96 mmol/L (98-107); Glucose 84 mg/dL (74-99); Potassium 4.5 mmol/L (3.5-5.1); Sodium 134 mmol/L (137-145)
[2018-06-24] MEDS ORDERED: NALOXONE 0.4 MG/ML 1 ML VIAL IV PRN (21:57)
[2018-06-24] MEDS ORDERED: SODIUM CHLORIDE 0.9% 1,000 ML IV ONE (21:57)
[2018-06-24] MEDS ORDERED: LORazepam 1 MG TAB PEG/G-TUBE PRN (22:00)
[2018-06-24] MEDS ORDERED: MELATONIN 5 MG TABLET PEG/G-TUBE PRN (22:00)
[2018-06-24] MEDS ORDERED: QUEtiapine 50 MG TAB PEG/G-TUBE PRN (22:00)
[2018-06-24] MEDS ORDERED: PROCHLORPERAZINE 10 MG TAB PEG/G-TUBE PRN (22:00)
[2018-06-24 22:08] LABS: Platelet Count 74 k/uL (150-450)
[2018-06-24] MEDS ORDERED: LORazepam 2 MG/ML INJ IV PRN ×3 (23:37)
[2018-06-25] MEDS: SODIUM CHLORIDE 0.9% 1,000 ML IV SCH ×6 (00:10→21:18)
[2018-06-25] MEDS: AMITRIPTYLINE HCL 50 MG TAB PEG/G-TUBE SCH ×2 (00:10→20:52)
[2018-06-25] MEDS: VALPROIC ACID ORAL SOLN 250 MG/5 ML CUP PEG/G-TUBE SCH ×4 (00:10→22:42)
[2018-06-25] MEDS ORDERED: THIAMINE 100 MG/ML 2 ML VIAL IM STA (00:23)
[2018-06-25] MEDS: GABAPENTIN 100 MG CAP PEG/G-TUBE SCH ×3 (08:20→22:42)
[2018-06-25] MEDS: GABAPENTIN 400 MG CAP PEG/G-TUBE SCH ×3 (08:20→22:42)
[2018-06-25] MEDS: ASPIRIN 81 MG PEG/G-TUBE SCH (08:20)
[2018-06-25] MEDS: HYDROcodone/APAP 7.5-325MG 1 EACH TAB PEG/G-TUBE PRN ×2 (08:28→17:10)
[2018-06-25] MEDS ORDERED: VANCOMYCIN IV PER PHARMACY 1 EACH MISC MISCELLANE PRN (10:17)
[2018-06-25] MEDS ORDERED: PANTOPRAZOLE 40 MG TABLET PO SCH (10:30)
--- NOTE | 2018-06-25 10:56 | P.HPIM ---
History of Present Illness 58-year-old with oral cancer and has a tracheostomy and has a PEG tube in place. Patient has significant the foul-smelling and crusting around the PEG tube site area. Patient denied any fever chills patient was also having significant pain in that area. Patient doesn't have any leukocytosis. Patient will be started on vancomycin and infectious disease and gastroenterology will be consulted. Patient denied any significant cough and significant abnormal discharge from the tracheostomy site wound cultures will be obtained. Review of Systems REVIEW OF SYSTEMS: CONSTITUTIONAL: No fever, no malaise, no fatigue. HEENT: No recent visual problems or hearing problems. Denied any sore throat. CARDIOVASCULAR: No chest pain, orthopnea, PND, no palpitations, no syncope. PULMONARY: No shortness of breath, no cough, no hemoptysis. GASTROINTESTINAL: No diarrhea, no nausea, no vomiting, NEUROLOGICAL: No headaches, no weakness, no numbness. HEMATOLOGICAL: Denies any bleeding or petechiae. GENITOURINARY: Denies any burning micturition, frequency, or urgency. MUSCULOSKELETAL/RHEUMATOLOGICAL: Denies any joint pain, swelling, or any muscle pain. ENDOCRINE: Denies any polyuria or polydipsia. The rest of the 14-point review of systems is negative. Past Medical History Past Medical History: Cancer, COPD, GERD/Reflux, Myocardial Infarction ([place]), Seizure Disorder Additional Past Medical History / Comment(s): low blood pressure, oral cancer- 2014, "everything through peg tube"-nothing oral(will go to his lungs per pt) all liquid food, current fx rt tibia February 2018- has cast on Last Myocardial Infarction Date:: 2014 History of Any Multi-Drug Resistant Organisms: None Reported Past Surgical History: Heart Catheterization Additional Past Surgical History / Comment(s): trachestomy, oral surgery for cancer removal, Past Anesthesia/Blood Transfusion Reactions: No Reported Reaction Additional Past Anesthesia/Blood Transfusion Reaction / Comment(s): adopted - no family hx Past Psychological History: Anxiety, Depression Smoking Status: Current every day smoker Past Alcohol Use History: Occasional Additional Past Alcohol Use History / Comment(s): smokes < 1/2 PPD, has smoked since age 18 Past Drug Use History: None Reported - Past Family History Mother Family Medical History: Unable to Obtain Additional Family Medical History / Comment(s): pt is adopted Medications and Allergies Home Medications Medication Instructions Recorded Confirmed Type Baclofen [Lioresal] 10 mg PEG/G-TUBE HS 07/18/17 04/26/18 History Chlorhexidine Gluconate [Periogard] 15 ml PO DAILY 07/18/17 04/26/18 History Gabapentin Oral Soln [Neurontin 10 ml PEG/G-TUBE Q8H 07/18/17 04/26/18 History Oral Soln] HYDROcodone/APAP 7.5-325MG [[place] 1 tab PEG/G-TUBE Q6HR PRN 07/18/17 04/26/18 History 7.5-325] LORazepam [Ativan] 2 mg PEG/G-TUBE DAILY PRN 07/18/17 04/26/18 History Melatonin 10 mg PEG/G-TUBE HS PRN 07/18/17 04/26/18 History Valproic Acid Oral Soln [Depakene 10 ml PEG/G-TUBE Q8H 07/18/17 04/26/18 History Syrup] Aspirin [Adult Low Dose Aspirin EC] 81 mg PEG/G-TUBE DAILY 01/10/18 04/26/18 History Amitriptyline HCl 50 mg PEG/G-TUBE HS 04/10/18 04/26/18 History Pantoprazole Sodium 40 mg PEG/G-TUBE DAILY 04/10/18 04/26/18 History Prochlorperazine [Compazine] 10 mg PEG/G-TUBE Q6H PRN 04/10/18 04/26/18 History QUEtiapine [SEROquel] 50 mg PEG/G-TUBE HS PRN 04/10/18 04/26/18 History Allergies Allergy/AdvReac Type Severity Reaction Status Date / Time No Known Allergies Allergy Verified 06/24/18 20:32 Physical Exam Vitals: Vital Signs Temp Pulse Pulse Resp BP BP Pulse Ox 06/25/18 08:42 18 06/25/18 07:15 97.7 F 108 H 18 130/87 96 06/25/18 03:48 18 06/24/18 23:45 98.4 F 117 H 16 113/67 06/24/18 23:05 112 H 20 06/24/18 22:30 110 H 18 106/70 96 06/24/18 22:00 114/76 06/24/18 21:40 97.0 F L 127 H 18 114/76 96 06/24/18 20:30 98 F 129 H 20 101/68 96 Intake and Output 06/24/18 06/25/18 06/25/18 22:59 06:59 14:59 Intake Total 1000 Output Total 250 Balance 750 Intake: Intake, IV Titration 1000 Amount Sodium Chloride 0.9% 1, 1000 000 ml @ 125 mls/hr IV . Q8H [facility] Rx#:[id number] Output: Urine 250 Other: # Voids 2 Weight 68.039 kg PHYSICAL EXAMINATION: GENERAL: The patient is alert and oriented x3, not in any acute distress. Thin built patient has a tracheostomy in place PEG tube in place HEENT: Pupils are round and equally reacting to light. EOMI. No scleral icterus. No conjunctival pallor. Normocephalic, atraumatic. No pharyngeal erythema. No thyromegaly. CARDIOVASCULAR: S1 and S2 present. No murmurs, rubs, or gallops. PULMONARY: Chest is clear to auscultation, no wheezing or crackles. ABDOMEN: Soft, nontender, nondistended, normoactive bowel sounds. No palpable organomegaly. Patient's PEG tube site area is crusted there is significant pulse smell I didn't see any obvious discharge is minimal redness around the PEG tube site area. MUSCULOSKELETAL: No joint swelling or deformity. EXTREMITIES: No cyanosis, clubbing, or pedal edema. NEUROLOGICAL: Gross neurological examination did not reveal any focal deficits. SKIN: No rashes. Results CBC & Chem 7: 06/24/18 21:28 06/24/18 21:28 Labs: Abnormal Lab Results - Last 24 Hours (Table) 06/24/18 06/24/18 Range/Units 21:28 21:28 Plt Count 74 L D (150-450) k/uL Sodium 134 L (137-145) mmol/L Chloride 96 L (98-107) mmol/L BUN 5 L (9-20) mg/dL Creatinine 0.57 L (0.66-1.25) mg/dL Assessment and Plan Plan: -Possible PEG tube site infection: Patient will be started on vancomycin and cultures will be obtained infectious disease and gastroenterology will be consulted -Tachycardia: Probably secondary to hypovolemia will obtain TSH patient will be on DVT prophylaxis -Mild hyponatremia secondary to hypovolemia patient was started on IV fluids at 100 mL/h -History of oral cancer status post tracheostomy PEG tube placement and oral reconstructive surgery -COPD without any significant exacerbation -Gastroesophageal reflux disease -Seizure disorder -Depression For above-mentioned chronic medical problems patient will be resumed on appropriate home medications.
[2018-06-25] MEDS ORDERED: VANCOMYCIN 1,250 MG in SODIUM CHLORIDE 0.9% 250 ML IVPB SCH (12:00)
[2018-06-25] MEDS: THIAMINE 100 MG TAB PO SCH ×2 (13:54→17:10)
[2018-06-25 15:48] VITALS: BMI 20.3
[2018-06-25] MEDS: MELATONIN 3 MG TABLET PEG/G-TUBE SCH (20:52)
[2018-06-25] MEDS: METOPROLOL TARTRATE 25 MG TAB PEG/G-TUBE SCH (20:52)
[2018-06-25] MEDS: BACLOFEN 10 MG TAB PEG/G-TUBE SCH (20:52)
[2018-06-25] MEDS: HEPARIN SODIUM,PORCINE 5,000 UNIT/ML 1 ML VIAL SQ SCH (20:54)
--- NOTE | 2018-06-25 22:14 | P.CONS ---
History of Present Illness - Reason for Consult Consult date: 06/25/18 Malfunction, PEG tube migration through abdominal wall Requesting physician: Tyree Gutiérrez - Chief Complaint PEG site malfunction - History of Present Illness The patient is a pleasant 58-year-old male with a known history of oropharyngeal cancer who has been reliant on tracheostomy and PEG tube through the past few years since diagnosis and treatment of his underlying cancer who presents to the emergency department complaining of migration of the PEG tube through the abdominal wall. The patient has had difficulty with the PEG tube over the past few months. He was seen on 04/12/18 by the gastroenterology service who performed replacement of a 16 Ivor[place] DAMON PEG tube with an 18 Ivorian button PEG tube. The patient was subsequently seen on 04/26/2018 in the emergency department after complaining of leaking around the PEG tube site. At that point the patient had replacement of the 18 [place]vor[place] PEG tube with a 20 Ivorian PEG tube. He was seen in office a few weeks later complaining of some erythema at the PEG tube site at which time the patient was treated with antibiotics for a possible infection. Currently he presents complaining of increased pain, erythema and drainage at the PEG site. No other complaints at this time. Review of Systems REVIEW OF SYSTEMS: CARDIO: Denies any chest pain or palpitations. PULMONARY: Denies any shortness of breath or wheezing, patient has tracheostomy in place. GENITOURINARY: No dysuria or hematuria. MUSCULOSKELETAL: No weakness reported. SKIN: Denies any new rashes or lesions, jaundice or pallor. PSYCHIATRIC: Denies any depression or anxiety. NEUROLOGY: Denies headache, denies any new focal deficits. EARS: No tinnitus, discharge or new hearing loss. NOSE: No discharge or congestion. EYES: No pain in eyes or change in vision. CONSTITUTIONAL: No fever, chills, night sweats. Past Medical History Past Medical History: Cancer, COPD, GERD/Reflux, Myocardial Infarction ([place]), Seizure Disorder Additional Past Medical History / Comment(s): low blood pressure, oral cancer- 2014, "everything through peg tube"-nothing oral(will go to his lungs per pt) all liquid food, current fx rt tibia February 2018- has cast on Last Myocardial Infarction Date:: 2014 History of Any Multi-Drug Resistant Organisms: None Reported Past Surgical History: Heart Catheterization Additional Past Surgical History / Comment(s): trachestomy, oral surgery for cancer removal, Past Anesthesia/Blood Transfusion Reactions: No Reported Reaction Additional Past Anesthesia/Blood Transfusion Reaction / Comm: adopted - no family hx Past Psychological History: Anxiety, Depression Smoking Status: Current every day smoker Past Alcohol Use History: Occasional Additional Past Alcohol Use History / Comment(s): smokes < 1/2 PPD, has smoked since age 18 Past Drug Use History: None Reported - Past Family History Mother Family Medical History: Unable to Obtain Additional Family Medical History / Comment(s): pt is adopted Medications and Allergies Home Medications Medication Instructions Recorded Confirmed Type Baclofen [Lioresal] 10 mg PEG/G-TUBE HS 07/18/17 06/25/18 History Chlorhexidine Gluconate [Periogard] 15 ml PO DAILY 07/18/17 06/25/18 History HYDROcodone/APAP 7.5-325MG [[place] 1 tab PEG/G-TUBE Q6HR PRN 07/18/17 06/25/18 History 7.5-325] LORazepam [Ativan] 2 mg PEG/G-TUBE DAILY PRN 07/18/17 06/25/18 History Valproic Acid Oral Soln [Depakene 10 ml PEG/G-TUBE Q8H 07/18/17 06/25/18 History Syrup] Amitriptyline HCl 50 mg PEG/G-TUBE HS 04/10/18 06/25/18 History Pantoprazole Sodium 40 mg PEG/G-TUBE DAILY 04/10/18 06/25/18 History Prochlorperazine [Compazine] 10 mg PEG/G-TUBE Q6H PRN 04/10/18 06/25/18 History QUEtiapine [SEROquel] 50 mg PEG/G-TUBE HS PRN 04/10/18 06/25/18 History Gabapentin 250mg/5ml 500 mg PEG/G-TUBE Q8H 06/25/18 06/25/18 History Ipratropium-Albuterol Nebulize 3 ml INHALATION RT-QID PRN 06/25/18 06/25/18 History [Duoneb 0.5 mg-3 mg/3 ml Soln] Lansoprazole 3mg/Ml 30 mg PEG/G-TUBE DAILY 06/25/18 06/25/18 History Melatonin 3 mg PEG/G-TUBE HS 06/25/18 06/25/18 History Metoprolol Tartrate [Lopressor] 25 mg PEG/G-TUBE BID 06/25/18 06/25/18 History Nicotine 21Mg/24Hr Patch [Habitrol 1 patch TRANSDERM DAILY 06/25/18 06/25/18 History 21Mg/24Hr Patch] Allergies Allergy/AdvReac Type Severity Reaction Status Date / Time No Known Allergies Allergy Verified 06/25/18 14:28 Physical Exam Vitals: Vital Signs Temp Pulse Pulse Resp BP BP Pulse Ox 06/25/18 08:42 18 06/25/18 07:15 97.7 F 108 H 18 130/87 96 06/25/18 03:48 18 06/24/18 23:45 98.4 F 117 H 16 113/67 06/24/18 23:05 112 H 20 06/24/18 22:30 110 H 18 106/70 96 06/24/18 22:00 114/76 06/24/18 21:40 97.0 F L 127 H 18 114/76 96 06/24/18 20:30 98 F 129 H 20 101/68 96 Intake and Output 06/24/18 06/25/18 06/25/18 22:59 06:59 14:59 Intake Total 1000 Output Total 250 Balance 750 Intake: Intake, IV Titration 1000 Amount Sodium Chloride 0.9% 1, 1000 000 ml @ 125 mls/hr IV . Q8H [facility] Rx#:[id number] Output: Urine 250 Other: # Voids 2 Weight 68.039 kg On physical examination, patient appears comfortable in no apparent distress. HEAD: Normocephalic, atraumatic. EYES: No scleral icterus. No conjunctival injection. NECK: Trachea midline, tracheostomy in place. CHEST: Clear to auscultation with no wheezing or rhonchi appreciated. HEART: Regular rate and rhythm. ABDOMEN: Soft, obese. Bowel sounds are positive. No organomegaly. No guarding or rigidity. PEG site with erythema noted and bumper which appears to be protruding through the abdominal wall in addition to the PEG tube. EXTREMITIES: No pedal edema. SKIN: No rashes, no jaundice. NEUROLOGIC: Alert and oriented x3. No focal deficits. Results CBC & Chem 7: 06/24/18 21:28 06/24/18 21:28 Labs: Abnormal Lab Results - Last 24 Hours (Table) 06/24/18 06/24/18 Range/Units 21:28 21:28 Plt Count 74 L D (150-450) k/uL Sodium 134 L (137-145) mmol/L Chloride 96 L (98-107) mmol/L BUN 5 L (9-20) mg/dL Creatinine 0.57 L (0.66-1.25) mg/dL Assessment and Plan (1) PEG tube malfunction Narrative/Plan: PEG site malfunction with 20-Ivorian externally placed PEG tube on April 26 after patient presented with complaints of leaking around PEG tube which was replaced at the end of March. The stomach appears that the patient has a buried bumper and a second protrusion of the bumper through the abdominal wall in addition to the originally placed PEG tube. Current Visit: Yes Status: Acute Code(s): K94.23 - GASTROSTOMY MALFUNCTION SNOMED Code(s): 967018178 Plan: Supportive care Infectious disease consult that and antibiotics further service Would recommend surgical service consult the patient appears to have 2 tracks in the abdomen one from the initial PEG tube placement and a second from a bumper protruding through the abdominal wall Would hold feeds until surgeries able to see the patient and make recommendations Thank you for allowing us to participate in the care of this patient we will continue to follow
--- NOTE | 2018-06-25 22:40 | CONS ---
CONSULTATION DATE OF SERVICE: 06/25/2018 REASON FOR CONSULTATION: PEG tube site infection. HISTORY OF PRESENT ILLNESS: The patient is a 58-year-old male with a past medical history significant for oral cancer. The patient did have a PEG tube for feeding which apparently last has been placed by Dr. Chandler on 04/12/2018. The patient is now coming to [facility] with significant pain into the PEG tube site which has been going on for a couple of weeks now. Pain in crampy, more of a dull aching, at times sharp, almost 6 to 7 out of 10, and no radiation. The patient also has some foul-smelling drainage around it. The patient denies any high-grade fever, rigors of chills. With these symptoms the patient was evaluated by the ER physician on arrival in the ER. The patient has been afebrile. Slight tachycardia has been noted. Blood pressure has been stable. White count was not elevated. The patient did have a wound culture obtained from the infected site. He was started on vancomycin and Infectious Disease was consulted for further recommendations regarding antibiotic therapy. REVIEW OF SYSTEMS: CONSTITUTIONAL: Positive for weakness but no high-grade fever. EYES: No complaint. ENT: No complaint. RESPIRATORY: No complaint. CARDIOVASCULAR: No complaint. GENITOURINARY: No complaint. GASTROINTESTINAL: As per HPI. MUSCULOSKELETAL: No complaint. INTEGUMENTARY: No complaint. PSYCHOLOGICAL: No complaint. ENDOCRINE: No complaint. NEUROLOGICAL: No complaint. PAST MEDICAL HISTORY: 1. Seizure disorder. 2. Myocardial infarction. 3. Gastroesophageal reflux disease. 4. History of oral cancer. PAST SURGICAL HISTORY: 1. Heart catheterization. 2. Oral surgery for cancer removal. 3. Tracheostomy . SOCIAL HISTORY: Current everyday smoker. He has been smoking since the age of 18. Occasionally drinks. No drug use. FAMILY HISTORY: Unavailable, as the patient was adopted. ALLERGIES: NO KNOWN DRUG ALLERGIES. CURRENT MEDICATIONS: 1. [place]. 2. Elavil. 3. Aspirin. 4. Baclofen. 5. Neurontin. 6. Ativan. 7. Melatonin. 8. Nicotine patch. 9. Protonix. 10.Seroquel. 11.Valproic acid. 12.Vancomycin, Pharmacy to dose. PHYSICAL EXAMINATION: Blood pressure is 124/83 with a pulse of 110, temperature of 98. He is 96% on room air. General description is a middle-aged male lying in bed in no distress. HEENT examination shows no pallor or scleral icterus. Oral mucosa membrane is dry. No pharyngeal erythema or thrush. NECK: Trachea is central. No thyromegaly. LUNGS: Unlabored breathing. Clear to auscultation anteriorly. No wheeze or crackle. HEART: S1, S2. Regular rate and rhythm. ABDOMEN: Soft. The PEG tube site looks mechanical dislodgement. Some foul- smelling drainage. No significant erythema was noticed. EXTREMITIES: No edema of the feet. SKIN EXAMINATION: No rash or mass palpable. Neurologically patient is awake, alert, oriented x3. Mood and affect normal. LABS: Hemoglobin is 15.5, white count 4.6, BUN of 5, creatinine 0.57. Wound cultures obtained and currently pending. DIAGNOSTIC IMPRESSION AND PLAN: Patient admitted to hospital with pain at the PEG tube site which seems to be more likely from mechanical dislodgement rather than infectious etiology. The patient did have some foul-smelling drainage that could be GI taj. Underlying infection less likely but not entirely excluded. Clinically doubt MRSA infection. PLAN: 1. Discontinue the vancomycin. 2. Will start the patient on a course of IV Unasyn 1.5 q.6. That will be adjusted further with some clinical response as well as culture. Thank you for this consultation. Will follow this patient along with you. MMODL / IJN: [id number] /
[2018-06-26] MEDS: AMPICILLIN-SULBACTAM 1.5 GM in SODIUM CHLORIDE 0.9% 50 ML IVPB SCH ×5 (00:06→23:59)
[2018-06-26] MEDS: SODIUM CHLORIDE 0.9% 1,000 ML IV SCH ×6 (05:28→22:26)
[2018-06-26] MEDS: GABAPENTIN 400 MG CAP PEG/G-TUBE SCH ×3 (05:30→22:11)
[2018-06-26] MEDS: GABAPENTIN 100 MG CAP PEG/G-TUBE SCH ×3 (05:30→22:11)
[2018-06-26] MEDS: VALPROIC ACID ORAL SOLN 250 MG/5 ML CUP PEG/G-TUBE SCH ×3 (05:30→22:28)
[2018-06-26] MEDS: HYDROcodone/APAP 7.5-325MG 1 EACH TAB PEG/G-TUBE PRN ×2 (05:42→19:17)
[2018-06-26 07:10] LABS: HCT 37.8 % (39.0-53.0); MCH 32.7 pg (25.0-35.0); MCHC 32.6 g/dL (31.0-37.0); MCV 100.2 fL (80.0-100.0); RBC 3.77 m/uL (4.30-5.90); RDW 13.1 % (11.5-15.5)
[2018-06-26 07:15] LABS: Platelet Count 61 k/uL (150-450)
[2018-06-26 07:17] LABS: Anion Gap 8 mmol/L; Blood Urea Nitrogen 6 mg/dL (9-20); Calcium 8.7 mg/dL (8.4-10.2); Carbon Dioxide 29 mmol/L (22-30); Chloride 100 mmol/L (98-107); Glucose 76 mg/dL (74-99); Potassium 3.4 mmol/L (3.5-5.1); Sodium 137 mmol/L (137-145)
[2018-06-26 07:21] LABS: HGB 12.3 gm/dL (13.0-17.5)
[2018-06-26] MEDS: NICOTINE 21MG/24HR PATCH TRANSDERM SCH (09:17)
[2018-06-26] MEDS: HEPARIN SODIUM,PORCINE 5,000 UNIT/ML 1 ML VIAL SQ SCH ×2 (09:19→22:10)
[2018-06-26] MEDS: METOPROLOL TARTRATE 25 MG TAB PEG/G-TUBE SCH ×2 (09:19→22:09)
[2018-06-26] MEDS: PANTOPRAZOLE SODIUM 40 MG GRANULE PKT PEG/G-TUBE SCH (09:20)
[2018-06-26] MEDS: ASPIRIN 81 MG PEG/G-TUBE SCH (09:20)
[2018-06-26] MEDS: CHLORHEXIDINE GLUCONATE 15 ML CUP MUCOUS MEM SCH (09:21)
[2018-06-26] MEDS ORDERED: POTASSIUM CHLORIDE ER 20 MEQ TAB.ER PO STA (09:33)
[2018-06-26] MEDS ORDERED: POTASSIUM BICARBONATE/CIT AC 20 MEQ TABLET.EFF PO ONE (11:17)
[2018-06-26] MEDS: THIAMINE 100 MG TAB PO SCH ×2 (11:32→17:46)
[2018-06-26] MEDS ORDERED: Potassium Replacement Protocol 1 EACH MISC MISCELLANE PRN (14:38)
--- NOTE | 2018-06-26 14:46 | P.PN ---
Subjective Progress Note Date: 06/26/18 Progress Note Being dictated for Dr. Gutiérrez. Interval history:58-year-old with oral cancer and has a tracheostomy and has a PEG tube in place. Patient has significant the foul-smelling and crusting around the PEG tube site area. Patient denied any fever chills patient was also having significant pain in that area. Patient doesn't have any leukocytosis. Patient will be started on vancomycin and infectious disease and gastroenterology will be consulted. Patient denied any significant cough and significant abnormal discharge from the tracheostomy site wound cultures will be obtained. Review of Systems REVIEW OF SYSTEMS: CONSTITUTIONAL: No fever, no malaise, no fatigue. HEENT: No recent visual problems or hearing problems. Denied any sore throat. CARDIOVASCULAR: No chest pain, orthopnea, PND, no palpitations, no syncope. PULMONARY: No shortness of breath, no cough, no hemoptysis. GASTROINTESTINAL: No diarrhea, no nausea, no vomiting, NEUROLOGICAL: No headaches, no weakness, no numbness. HEMATOLOGICAL: Denies any bleeding or petechiae. GENITOURINARY: Denies any burning micturition, frequency, or urgency. MUSCULOSKELETAL/RHEUMATOLOGICAL: Denies any joint pain, swelling, or any muscle pain. ENDOCRINE: Denies any polyuria or polydipsia. The rest of the 14-point review of systems is negative. 06/26/2018 Wound cultures reporting gram-negative bacilli. Vancomycin discontinued, Unasyn initiated as per infectious disease. afebrile, normal WBC. Denies abdominal pain, reports cramping. Significant odor from affected PEG tube site. Hypokalemic, potassium 3.4. GI and surgical consult in place with recommendations pending. Telemetry sinus tachycardia. Minimal shakiness, no DTs. Objective - Vital Signs Vital signs: Vital Signs Temp 97.9 F 06/26/18 07:00 Pulse 94 06/26/18 08:00 Resp 16 06/26/18 08:00 BP 107/77 06/26/18 07:00 Pulse Ox 95 06/26/18 07:00 Intake & Output 06/25/18 06/26/18 06/26/18 18:59 06:59 18:59 Intake Total 800 925 Output Total 700 700 Balance 100 225 Weight 68.039 kg Intake: Intake, IV Titration 800 925 Amount Ampicillin-Sulbactam 1.5 800 50 gm In Sodium Chloride 0.9 % 50 ml @ 100 mls/hr IVPB Q6HR [facility] Rx#:[id number] Sodium Chloride 0.9% 1, 875 000 ml @ 125 mls/hr IV . Q8H [facility] Rx#:[id number] Output: Urine 700 700 Other: Voiding Method Urinal Urinal # Voids 3 2 - Exam GENERAL: The patient is alert and oriented x3, not in any acute distress. Thin built patient has a tracheostomy and PEG tube present HEENT: Pupils are round and equally reacting to light. EOMI. No scleral icterus. No conjunctival pallor. Normocephalic, atraumatic. No pharyngeal erythema. No thyromegaly. CARDIOVASCULAR: S1 and S2 present. No murmurs, rubs, or gallops. PULMONARY: Chest is clear to auscultation, no wheezing or crackles. ABDOMEN: Soft, nontender, nondistended, normoactive bowel sounds. No palpable organomegaly. Patient's PEG tube site area is crusted there is serosanguineous /purulent drainage with significant odor, minimal redness around the PEG tube site area. MUSCULOSKELETAL: No joint swelling or deformity. EXTREMITIES: No cyanosis, clubbing, or pedal edema. NEUROLOGICAL: Gross neurological examination did not reveal any focal deficits. SKIN: No rashes. - Labs CBC & Chem 7: 06/26/18 06:13 06/26/18 06:13 Labs: Abnormal Lab Results - Last 24 Hours (Table) 06/26/18 06/26/18 Range/Units 06:13 06:13 RBC 3.77 L (4.30-5.90) m/uL Hgb 12.3 L D (13.0-17.5) gm/dL Hct 37.8 L (39.0-53.0) % MCV 100.2 H (80.0-100.0) fL Plt Count 61 L (150-450) k/uL Potassium 3.4 L (3.5-5.1) mmol/L BUN 6 L (9-20) mg/dL Creatinine 0.57 L (0.66-1.25) mg/dL Microbiology - Last 24 Hours (Table) 06/25/18 15:15 Gram Stain - Preliminary Abdomen Wound Culture - Preliminary Gram Neg Bacilli 06/25/18 15:15 Anaerobic Culture - Preliminary Abdomen Assessment and Plan Assessment: -Possible PEG tube site infection, possible dislodgment. Wound culture gram- negative bacilli -Tachycardia: Probably secondary to hypovolemia will obtain TSH patient will be on DVT prophylaxis -Mild hyponatremia secondary to hypovolemia patient was started on IV fluids at 100 mL/h -History of oral cancer status post tracheostomy PEG tube placement and oral reconstructive surgery -COPD without any significant exacerbation -Gastroesophageal reflux disease -Seizure disorder -Depression Plan: Continue on current medication regime ,monitoring and symptomatic treatment. Maintain CIWA protocol. Antibiotics as per infectious disease. Potassium to be replaced by a replacement protocol as ordered. NPO/tube feeds to remain on hold. Consults for GI and surgery in place with recommendations pending. Reports last cigarette, last alcohol consumption was on Monday prior to admission. Smoking and alcohol cessation readdressed. PT/OT. The impression and plan of care has been dictated as directed. : I performed a history and examination of this patient, discussed the same with the dictator. I agree with the dictator's note ,documented as a scribe. Any additional findings or plans will be noted.
[2018-06-26] MEDS ORDERED: THIAMINE 100 MG/ML 2 ML VIAL IM STA (14:47)
[2018-06-26] MEDS ORDERED: LORazepam 2 MG/ML INJ IV PRN ×3 (14:47)
[2018-06-26] MEDS ORDERED: THIAMINE 100 MG TAB PO SCH (17:00)
--- NOTE | 2018-06-26 19:05 | P.GSCN ---
History of Present Illness Consult date: 06/26/18 Reason for Consult: PEG tube malfunction, malnutrition History of present illness: This is a 58-year-old male who has a previously placed PEG tube an outside institution. Patient has developed an erosion of what appears to be a PEG tube button next to the PEG tube. Patient states that he had a previous PEG button placed. He had a new PEG tube placed several months ago. He states that the endoscopist placed the PEG tube button into the stomach. Past Medical History Past Medical History: Cancer, COPD, GERD/Reflux, Myocardial Infarction ([place]), Seizure Disorder Additional Past Medical History / Comment(s): low blood pressure, oral cancer- 2014, "everything through peg tube"-nothing oral(will go to his lungs per pt) all liquid food, current fx rt tibia February 2018- has cast on Last Myocardial Infarction Date:: 2014 History of Any Multi-Drug Resistant Organisms: None Reported Past Surgical History: Heart Catheterization Additional Past Surgical History / Comment(s): trachestomy, oral surgery for cancer removal, Past Anesthesia/Blood Transfusion Reactions: No Reported Reaction Additional Past Anesthesia/Blood Transfusion Reaction / Comm: adopted - no family hx Past Psychological History: Anxiety, Depression Smoking Status: Current every day smoker Past Alcohol Use History: Occasional Additional Past Alcohol Use History / Comment(s): smokes < 1/2 PPD, has smoked since age 18 Past Drug Use History: None Reported - Past Family History Mother Family Medical History: Unable to Obtain Additional Family Medical History / Comment(s): pt is adopted Medications and Allergies Home Medications Medication Instructions Recorded Confirmed Type Baclofen [Lioresal] 10 mg PEG/G-TUBE HS 07/18/17 06/25/18 History Chlorhexidine Gluconate [Periogard] 15 ml PO DAILY 07/18/17 06/25/18 History HYDROcodone/APAP 7.5-325MG [[place] 1 tab PEG/G-TUBE Q6HR PRN 07/18/17 06/25/18 History 7.5-325] LORazepam [Ativan] 2 mg PEG/G-TUBE DAILY PRN 07/18/17 06/25/18 History Valproic Acid Oral Soln [Depakene 10 ml PEG/G-TUBE Q8H 07/18/17 06/25/18 History Syrup] Amitriptyline HCl 50 mg PEG/G-TUBE HS 04/10/18 06/25/18 History Pantoprazole Sodium 40 mg PEG/G-TUBE DAILY 04/10/18 06/25/18 History Prochlorperazine [Compazine] 10 mg PEG/G-TUBE Q6H PRN 04/10/18 06/25/18 History QUEtiapine [SEROquel] 50 mg PEG/G-TUBE HS PRN 04/10/18 06/25/18 History Gabapentin 250mg/5ml 500 mg PEG/G-TUBE Q8H 06/25/18 06/25/18 History Ipratropium-Albuterol Nebulize 3 ml INHALATION RT-QID PRN 06/25/18 06/25/18 History [Duoneb 0.5 mg-3 mg/3 ml Soln] Lansoprazole 3mg/Ml 30 mg PEG/G-TUBE DAILY 06/25/18 06/25/18 History Melatonin 3 mg PEG/G-TUBE HS 06/25/18 06/25/18 History Metoprolol Tartrate [Lopressor] 25 mg PEG/G-TUBE BID 06/25/18 06/25/18 History Nicotine 21Mg/24Hr Patch [Habitrol 1 patch TRANSDERM DAILY 06/25/18 06/25/18 History 21Mg/24Hr Patch] Allergies Allergy/AdvReac Type Severity Reaction Status Date / Time No Known Allergies Allergy Verified 06/25/18 14:28 Surgical - Exam Vital Signs Temp Pulse Resp BP Pulse Ox 98 F 129 H 20 101/68 96 06/24/18 20:30 06/24/18 20:30 06/24/18 20:30 06/24/18 20:30 06/24/18 20:30 - General well developed, no distress - Eyes PERRL - ENT normal pinna - Neck no masses - Respiratory normal expansion - Cardiovascular Rhythm: regular - Abdomen PEG tube button eroded next 2 PEG tube Abdomen: soft, non tender Results - Labs 06/26/18 06:13 06/26/18 06:13 Abnormal Lab Results - Last 24 Hours (Table) 06/26/18 06/26/18 Range/Units 06:13 06:13 RBC 3.77 L (4.30-5.90) m/uL Hgb 12.3 L D (13.0-17.5) gm/dL Hct 37.8 L (39.0-53.0) % MCV 100.2 H (80.0-100.0) fL Plt Count 61 L (150-450) k/uL Potassium 3.4 L (3.5-5.1) mmol/L BUN 6 L (9-20) mg/dL Creatinine 0.57 L (0.66-1.25) mg/dL Microbiology - Last 24 Hours (Table) 06/25/18 15:15 Gram Stain - Preliminary Abdomen Wound Culture - Preliminary Gram Neg Bacilli 06/25/18 15:15 Anaerobic Culture - Preliminary Abdomen Diabetes panel 06/26/18 Range/Units 06:13 Sodium 137 (137-145) mmol/L Potassium 3.4 L (3.5-5.1) mmol/L Chloride 100 (98-107) mmol/L Carbon Dioxide 29 (22-30) mmol/L BUN 6 L (9-20) mg/dL Creatinine 0.57 L (0.66-1.25) mg/dL Glucose 76 (74-99) mg/dL Calcium 8.7 (8.4-10.2) mg/dL Thyroid panel 06/26/18 Range/Units 06:13 TSH 3.270 (0.465-4.680) mIU/L Calcium panel 06/26/18 Range/Units 06:13 Calcium 8.7 (8.4-10.2) mg/dL Pituitary panel 06/26/18 Range/Units 06:13 Sodium 137 (137-145) mmol/L Potassium 3.4 L (3.5-5.1) mmol/L Chloride 100 (98-107) mmol/L Carbon Dioxide 29 (22-30) mmol/L BUN 6 L (9-20) mg/dL Creatinine 0.57 L (0.66-1.25) mg/dL Glucose 76 (74-99) mg/dL Calcium 8.7 (8.4-10.2) mg/dL TSH 3.270 (0.465-4.680) mIU/L Adrenal panel 06/26/18 Range/Units 06:13 Sodium 137 (137-145) mmol/L Potassium 3.4 L (3.5-5.1) mmol/L Chloride 100 (98-107) mmol/L Carbon Dioxide 29 (22-30) mmol/L BUN 6 L (9-20) mg/dL Creatinine 0.57 L (0.66-1.25) mg/dL Glucose 76 (74-99) mg/dL Calcium 8.7 (8.4-10.2) mg/dL Assessment and Plan Assessment: The PEG tube button was grasped and gently removed from the skin. It appears to have been cut and eroded through the abdominal wall. The patient's PEG tube appears to be in good condition. We will perform a CAT scan with contrast placed in the PEG tube today. If this is normal he can resume his diet through his PEG tube.
[2018-06-26] MEDS ORDERED: IOPAMIDOL-300 CONTRAST 30 ML VIAL (ORAL USE) PO PRN (19:09)
--- NOTE | 2018-06-26 21:03 | CT ---
EXAMINATION TYPE: CT abdomen pelvis wo con DATE OF EXAM: 06/26/2018 COMPARISON: None HISTORY: PEG tube placement. CT DLP: 410.8 mGycm Automated exposure control for dose reduction was used. TECHNIQUE: Helical acquisition of images was performed from the lung bases through the pelvis. FINDINGS: Within the limits of noncontrast CT the following observations are made. LUNG BASES: No significant abnormality is appreciated. LIVER/GB: No significant abnormality is appreciated. PANCREAS: No significant abnormality is seen. SPLEEN: No significant abnormality is seen. ADRENALS: No significant abnormality is seen. KIDNEYS: No significant abnormality is seen. PERITONEAL CAVITY: No pneumoperitoneum or fluid. RETROPERITONEAL ADENOPATHY: None visualized REPRODUCTIVE ORGANS: No significant abnormality is seen URINARY BLADDER: No significant abnormality is seen. PELVIC ADENOPATHY: None visualized. OSSEOUS STRUCTURES: No significant abnormality is seen. BOWEL: The PEG tube is in place within the stomach. The radiographic contrast material which was inj ected through the PEG tube is seen to opacify the gastric fundus gastric body and gastric antrum, as well as the duodenum and jejunum. There is no extraluminal contrast. Hollow viscera are otherwise unr emarkable. OTHER: Widespread severe nonaneurysmal atherosclerotic calcifications are noted throughout the arteri al anatomy of the abdomen and pelvis, including the coronary arteries. IMPRESSION: 1. No acute process. 2. Marked atherosclerosis throughout visualized arterial anatomy. 3. Generalized osteopenia.
--- NOTE | 2018-06-26 21:15 | P.PN ---
Subjective Progress Note Date: 06/26/18 Principal diagnosis: PEG tube malfunction Patient is doing well, with no abdominal pain. He has not had any tube feeds through the PEG. No pain at the site. Objective - Vital Signs Vital signs: Vital Signs Temp 97.4 F L 06/26/18 19:40 Pulse 123 H 06/26/18 19:40 Resp 18 06/26/18 19:40 BP 117/75 06/26/18 19:40 Pulse Ox 93 L 06/26/18 19:40 Intake & Output 06/26/18 06/26/18 06/27/18 06:59 18:59 06:59 Intake Total 800 925 Output Total 700 1950 Balance 100 -1025 Intake: Intake, IV Titration 800 925 Amount Ampicillin-Sulbactam 1.5 800 50 gm In Sodium Chloride 0.9 % 50 ml @ 100 mls/hr IVPB Q6HR [facility] Rx#:[id number] Sodium Chloride 0.9% 1, 875 000 ml @ 125 mls/hr IV . Q8H [facility] Rx#:[id number] Output: Urine 700 1950 Other: Voiding Method Urinal Urinal # Voids 2 - Exam On physical examination, patient appears comfortable in no apparent distress. HEAD: Normocephalic, atraumatic. EYES: No scleral icterus. No conjunctival injection. MOUTH: No lesions, tongue midline. NECK: Trachea midline, with tracheostomy in place. CHEST: Clear to auscultation with no wheezing or rhonchi appreciated. HEART: Regular rate and rhythm. ABDOMEN: Soft. Bowel sounds are positive. No organomegaly. No guarding or rigidity. PEG tube in place with second tract and bumper appearing to protrude through the abdominal wall, no erythema around the site. EXTREMITIES: No pedal edema. SKIN: No rashes, no jaundice. NEUROLOGIC: Alert and oriented x3. No focal deficits. - Labs CBC & Chem 7: 06/26/18 06:13 06/26/18 06:13 Labs: Abnormal Lab Results - Last 24 Hours (Table) 06/26/18 06/26/18 Range/Units 06:13 06:13 RBC 3.77 L (4.30-5.90) m/uL Hgb 12.3 L D (13.0-17.5) gm/dL Hct 37.8 L (39.0-53.0) % MCV 100.2 H (80.0-100.0) fL Plt Count 61 L (150-450) k/uL Potassium 3.4 L (3.5-5.1) mmol/L BUN 6 L (9-20) mg/dL Creatinine 0.57 L (0.66-1.25) mg/dL Microbiology - Last 24 Hours (Table) 06/25/18 15:15 Gram Stain - Preliminary Abdomen Wound Culture - Preliminary Gram Neg Bacilli 06/25/18 15:15 Anaerobic Culture - Preliminary Abdomen Assessment and Plan (1) PEG tube malfunction Narrative/Plan: PEG site malfunction with 20-Yi externally placed PEG tube on April 26 after patient presented with complaints of leaking around PEG tube which was replaced at the end of March. The stomach appears that the patient has a buried bumper and a second protrusion of the bumper through the abdominal wall in addition to the originally placed PEG tube. After the patient was seen today surgery consulted and remove the PEG tube with follow-up computed tomography scan ordered to ensure adequate location. Current Visit: Yes Status: Acute Code(s): K94.23 - GASTROSTOMY MALFUNCTION SNOMED Code(s): 709907711 Plan: Supportive care Infectious disease consult that and antibiotics further service, currently on Unasyn Would recommend surgical service consult today with PEG tube successfully removed. Reinsertion of new PEG with follow-up CT ordered. Discussed with the surgical service and appreciate their assistance. Okay to resume tube feeds and pills PEG as per surgical recommendations if CT with contrast through PEG shows that new tube is in place. Thank you for allowing us to participate in the care of this patient we will continue to follow
[2018-06-26] MEDS: MELATONIN 3 MG TABLET PEG/G-TUBE SCH (22:10)
[2018-06-26] MEDS: BACLOFEN 10 MG TAB PEG/G-TUBE SCH (22:10)
--- NOTE | 2018-06-26 22:45 | PN ---
PROGRESS NOTE DATE OF SERVICE: 06/26/2018. REASON FOR FOLLOWUP: Possible PEG site infection. INTERVAL HISTORY: The patient is afebrile. He is still complaining of pain around the PEG tube site. However, no worsening, no significant drainage. The patient denies having any chest pain, shortness of breath or cough. No nausea, vomiting and no diarrhea. EXAMINATION: Blood pressure is 117/75 with a pulse of 102. Temperature 97.4. He is 93% on room air. General description is a middle-aged male lying in bed in no distress. Respiratory system: Unlabored breathing. Clear to auscultation anteriorly. Heart S1, S2. Regular rate and rhythm. ABDOMEN: Soft. The PEG tube site with no significant redness, minimal foul smelling but no drainage. LABS: Hemoglobin is 12.1, white count 4.0, BUN of 6, creatinine 0.57. Cultures from the PEG tube site currently showing gram-negative bacilli. CT abdomen and pelvis did not show any acute process. DIAGNOSTIC IMPRESSION AND PLAN: Patient admitted to the hospital with pain in the PEG tube site with concern for possible cellulitis or dislodgement of the PEG tube. However, he did have a CT which apparently shows a correct position of the PEG tube at this point. He did have some superficial cultures currently showing a gram-negative. The patient currently covered with Unasyn that will be continued for now. Waiting for the cultures to finalize. Continue supportive care. MMODL / IJN: [id number] /
[2018-06-27] MEDS: AMITRIPTYLINE HCL 50 MG TAB PEG/G-TUBE SCH ×2 (00:15→23:03)
[2018-06-27] MEDS: GABAPENTIN 100 MG CAP PEG/G-TUBE SCH ×3 (06:32→20:52)
[2018-06-27] MEDS: GABAPENTIN 400 MG CAP PEG/G-TUBE SCH ×3 (06:32→20:52)
[2018-06-27] MEDS: VALPROIC ACID ORAL SOLN 250 MG/5 ML CUP PEG/G-TUBE SCH ×3 (06:33→23:03)
[2018-06-27] MEDS: AMPICILLIN-SULBACTAM 1.5 GM in SODIUM CHLORIDE 0.9% 50 ML IVPB SCH ×4 (06:33→23:01)
[2018-06-27] MEDS: NICOTINE 21MG/24HR PATCH TRANSDERM SCH (11:38)
[2018-06-27] MEDS: HYDROcodone/APAP 7.5-325MG 1 EACH TAB PEG/G-TUBE PRN ×2 (11:39→20:52)
[2018-06-27] MEDS: CHLORHEXIDINE GLUCONATE 15 ML CUP MUCOUS MEM SCH (11:40)
[2018-06-27] MEDS: ASPIRIN 81 MG PEG/G-TUBE SCH (11:40)
[2018-06-27] MEDS: HEPARIN SODIUM,PORCINE 5,000 UNIT/ML 1 ML VIAL SQ SCH ×2 (11:40→20:52)
[2018-06-27] MEDS: METOPROLOL TARTRATE 25 MG TAB PEG/G-TUBE SCH ×2 (11:41→20:52)
[2018-06-27] MEDS: PANTOPRAZOLE SODIUM 40 MG GRANULE PKT PEG/G-TUBE SCH (11:41)
--- NOTE | 2018-06-27 13:12 | P.PN ---
Subjective Progress Note Date: 06/27/18 58-year-old male seen in the follow-up visit PEG tube no redness noted around the site tube feeds to be initiated. Patient did have a CAT scan with contrast placed in the PEG tube yesterday there were no acute findings spell that he could resume his diet through his PEG tube Objective - Vital Signs Vital signs: Vital Signs Temp 97.5 F L 06/27/18 07:00 Pulse 115 H 06/27/18 07:00 Resp 12 06/27/18 07:00 BP 122/84 06/27/18 07:00 Pulse Ox 99 06/27/18 07:00 Intake & Output 06/26/18 06/27/18 06/27/18 18:59 06:59 18:59 Intake Total 925 800 Output Total 1950 1550 Balance -1025 -750 Intake: Intake, IV Titration 925 800 Amount Ampicillin-Sulbactam 1.5 50 gm In Sodium Chloride 0.9 % 50 ml @ 100 mls/hr IVPB Q6HR [facility] Rx#:[id number] Sodium Chloride 0.9% 1, 800 000 ml @ 100 mls/hr IV . Q10H [facility] Rx#:[id number] Sodium Chloride 0.9% 1, 875 000 ml @ 125 mls/hr IV . Q8H [facility] Rx#:[id number] Output: Urine 1950 1550 Other: Voiding Method Urinal - Exam Physical exam 58-year-old male sitting up in bed watching TV appears in no acute distress denies dizziness lightheadedness chest pain or shortness of breathe Lungs posterior diminished at the bases no shortness of breath Heart S1-S2 audible regular Abdomen flat not distended PEG tube in place no redness noted around the site Extremities no edema - Labs CBC & Chem 7: 06/26/18 06:13 06/26/18 06:13 Labs: Microbiology - Last 24 Hours (Table) 06/25/18 15:15 Gram Stain - Preliminary Abdomen Wound Culture - Preliminary Gram Neg Bacilli Assessment and Plan Assessment: Impression Present on admission PEG tube malfunction likely due to an erosion PEG tube button next to the PEG tube resolved removed PEG tube button PEG tube appears to be in good condition Tracheostomy oral surgery for cancer Present on admission or erosion what appears to be a PEG tube button next to a PEG tube CAT scan with contrast placed in the PEG tube no acute process Plan Can resume his diet through his PEG tube Will follow with you Defer to the consultants and the attending for further medical issues DVT and GI prophylaxis The above impression and plan of care have been discussed and directed by signing physician. Ernestina Jarvis nurse practitioner acting as scribe for signing physician.
--- NOTE | 2018-06-27 15:38 | P.PN ---
Subjective Progress Note Date: 06/27/18 Progress Note Being dictated for Dr. Gutiérrez. Interval history:58-year-old with oral cancer and has a tracheostomy and has a PEG tube in place. Patient has significant the foul-smelling and crusting around the PEG tube site area. Patient denied any fever chills patient was also having significant pain in that area. Patient doesn't have any leukocytosis. Patient will be started on vancomycin and infectious disease and gastroenterology will be consulted. Patient denied any significant cough and significant abnormal discharge from the tracheostomy site wound cultures will be obtained. Review of Systems REVIEW OF SYSTEMS: CONSTITUTIONAL: No fever, no malaise, no fatigue. HEENT: No recent visual problems or hearing problems. Denied any sore throat. CARDIOVASCULAR: No chest pain, orthopnea, PND, no palpitations, no syncope. PULMONARY: No shortness of breath, no cough, no hemoptysis. GASTROINTESTINAL: No diarrhea, no nausea, no vomiting, NEUROLOGICAL: No headaches, no weakness, no numbness. HEMATOLOGICAL: Denies any bleeding or petechiae. GENITOURINARY: Denies any burning micturition, frequency, or urgency. MUSCULOSKELETAL/RHEUMATOLOGICAL: Denies any joint pain, swelling, or any muscle pain. ENDOCRINE: Denies any polyuria or polydipsia. The rest of the 14-point review of systems is negative. 06/26/2018 Wound cultures reporting gram-negative bacilli. Vancomycin discontinued, Unasyn initiated as per infectious disease. afebrile, normal WBC. Denies abdominal pain, reports cramping. Significant odor from affected PEG tube site. Hypokalemic, potassium 3.4. GI and surgical consult in place with recommendations pending. Telemetry sinus tachycardia. Minimal shakiness, no DTs. 06/27/2018 abdomen/pelvis CT performed yesterday with no acute findings. Evaluated by surgery with recommendations noted including tube feedings being resumed today. Maintain IV antibiotics as per infectious disease, final cultures pending. Denies chest pain, palpitations or increased shortness of breath. Afebrile, intermittent mild tachycardia. Labs pending. Objective - Vital Signs Vital signs: Vital Signs Temp 97.8 F 06/27/18 15:00 Pulse 98 06/27/18 15:00 Resp 12 06/27/18 07:00 BP 134/89 06/27/18 15:00 Pulse Ox 96 06/27/18 15:00 Intake & Output 06/26/18 06/27/18 06/27/18 18:59 06:59 18:59 Intake Total 925 800 Output Total 1950 1550 900 Balance -8561 -799 -687 Weight 68.039 kg Intake: Intake, IV Titration 925 800 Amount Ampicillin-Sulbactam 1.5 50 gm In Sodium Chloride 0.9 % 50 ml @ 100 mls/hr IVPB Q6HR [facility] Rx#:[id number] Sodium Chloride 0.9% 1, 800 000 ml @ 100 mls/hr IV . Q10H [facility] Rx#:[id number] Sodium Chloride 0.9% 1, 875 000 ml @ 125 mls/hr IV . Q8H [facility] Rx#:[id number] Output: Urine 1950 1550 900 Other: Voiding Method Urinal - Exam GENERAL: Thin built patient is alert and oriented x3, not in any acute distress. tracheostomy and PEG tube present HEENT: Pupils are round and equally reacting to light. EOMI. No scleral icterus. No conjunctival pallor. Normocephalic, atraumatic. No pharyngeal erythema. No thyromegaly. CARDIOVASCULAR: S1 and S2 present. No murmurs, rubs, or gallops. PULMONARY: Chest is clear to auscultation, no wheezing or crackles. ABDOMEN: Soft, nontender, nondistended, normoactive bowel sounds. No palpable organomegaly. Patient's PEG tube site area with significant odor, minimal redness around the PEG tube site area. MUSCULOSKELETAL: No joint swelling or deformity. EXTREMITIES: No cyanosis, clubbing, or pedal edema. NEUROLOGICAL: Gross neurological examination did not reveal any focal deficits. - Labs CBC & Chem 7: 06/26/18 06:13 06/26/18 06:13 Labs: Microbiology - Last 24 Hours (Table) 06/25/18 15:15 Anaerobic Culture - Preliminary Abdomen 06/25/18 15:15 Gram Stain - Final Abdomen Wound Culture - Preliminary Proteus mirabilis Assessment and Plan Assessment: -Possible PEG tube site infection, Wound culture gram-negative bacilli. PEG tube information secondary to possibly eroded PEG tube button next to peg tube, removed. -Tachycardia: Probably secondary to hypovolemia, improving -Mild hyponatremia secondary to hypovolemia -History of oral cancer status post tracheostomy PEG tube placement and oral reconstructive surgery -COPD without any significant exacerbation -Gastroesophageal reflux disease -Seizure disorder -Depression Plan: Continue on current medication regime ,monitoring and symptomatic treatment. Labs pending. Maintain CIWA protocol. Antibiotics as per infectious disease. Final cultures pending. Tube feeds resumed, strict aspiration precautions. Discharge planning in progress for tomorrow. The impression and plan of care has been dictated as directed. : I performed a history and examination of this patient, discussed the same with the dictator. I agree with the dictator's note ,documented as a scribe. Any additional findings or plans will be noted.
[2018-06-27] MEDS: SODIUM CHLORIDE 0.9% 1,000 ML IV SCH ×5 (16:24→23:44)
[2018-06-27] MEDS: THIAMINE 100 MG TAB PO SCH ×2 (16:25)
[2018-06-27 16:39] LABS: Anion Gap 11 mmol/L; Blood Urea Nitrogen 7 mg/dL (9-20); Carbon Dioxide 27 mmol/L (22-30); Chloride 96 mmol/L (98-107); Glucose 62 mg/dL (74-99); Potassium 3.2 mmol/L (3.5-5.1); Sodium 134 mmol/L (137-145)
[2018-06-27 16:46] LABS: HCT 42.2 % (39.0-53.0); HGB 13.6 gm/dL (13.0-17.5); MCH 33.6 pg (25.0-35.0); MCHC 32.3 g/dL (31.0-37.0); Macrocytosis Slight; Mean Platelet Volume 7.6; RBC 4.06 m/uL (4.30-5.90); RDW 12.8 % (11.5-15.5); WBC 3.6 k/uL (3.8-10.6)
[2018-06-27 18:15] LABS: Eosinophils # (M) 0.07 k/uL (0-0.7); Lymphocytes # (M) 1.15 k/uL (1.0-4.8); Monocytes # (M) 0.18 k/uL (0-1.0); Neutrophils % (M) 61 %; Nucleated Red Blood Cells 0 /100 WBC (0-0); Total Cells Counted 100
[2018-06-27 18:16] LABS: Platelet Count 64 k/uL (150-450); Poikilocytosis (M) Present
[2018-06-27] MEDS: MELATONIN 3 MG TABLET PEG/G-TUBE SCH (20:52)
[2018-06-27] MEDS: BACLOFEN 10 MG TAB PEG/G-TUBE SCH (20:53)
[2018-06-28 00:08] VITALS: RESP 16
[2018-06-28] MEDS: AMPICILLIN-SULBACTAM 1.5 GM in SODIUM CHLORIDE 0.9% 50 ML IVPB SCH ×2 (05:03→13:09)
[2018-06-28] MEDS: SODIUM CHLORIDE 0.9% 1,000 ML IV SCH ×3 (05:05→16:04)
--- NOTE | 2018-06-28 05:12 | PN ---
PROGRESS NOTE DATE OF SERVICE: 06/27/2018 REASON FOR FOLLOWUP: Possible PEG tube site cellulitis. INTERVAL HISTORY: The patient is afebrile. The patient has been evaluated by Surgery yesterday with removal of the PEG tube button at the bedside. Overall pain is currently controlled. He has been restarted on tube feeding and has been tolerating so far. No chest pain, shortness of breath or cough. PHYSICAL EXAMINATION: On examination, blood pressure is 134/89 with a pulse of 98, temperature 97.8. He is 96% on room air. General description is a middle-aged male lying in bed in no distress. RESPIRATORY SYSTEM: Unlabored breathing, clear to auscultation anteriorly. HEART: S1, S2. Regular rate and rhythm. ABDOMEN: Soft. PEG tube site currently with no swelling, drainage. LABS: Hemoglobin is 13.6, white count 3.6. BUN of 7, creatinine 0.57. PEG tube site culture positive for Proteus mirabilis. DIAGNOSTIC IMPRESSION AND PLAN: Patient with admission to hospital with PEG tube site pain and exposure of the PEG tube button which has been removed, dislodged by Surgery. The wound culture with Proteus mirabilis a sensitive pathogen, currently on Unasyn that will be to short course of oral Augmentin on discharge and continue with supportive care. MMODL / IJN: [id number] /
[2018-06-28] MEDS: GABAPENTIN 400 MG CAP PEG/G-TUBE SCH ×2 (06:09→16:05)
[2018-06-28] MEDS: GABAPENTIN 100 MG CAP PEG/G-TUBE SCH ×2 (06:09→16:04)
[2018-06-28] MEDS: VALPROIC ACID ORAL SOLN 250 MG/5 ML CUP PEG/G-TUBE SCH ×2 (06:09→16:04)
[2018-06-28 07:21] LABS: Anion Gap 5 mmol/L; Blood Urea Nitrogen 9 mg/dL (9-20); Calcium 8.6 mg/dL (8.4-10.2); Carbon Dioxide 32 mmol/L (22-30); Chloride 99 mmol/L (98-107); Glucose 120 mg/dL (74-99); Sodium 136 mmol/L (137-145)
[2018-06-28 07:25] LABS: HCT 37.2 % (39.0-53.0); HGB 12.1 gm/dL (13.0-17.5); MCH 32.3 pg (25.0-35.0); MCHC 32.4 g/dL (31.0-37.0); MCV 99.5 fL (80.0-100.0); Mean Platelet Volume 8.8; RBC 3.74 m/uL (4.30-5.90); RDW 12.9 % (11.5-15.5); WBC 3.1 k/uL (3.8-10.6)
[2018-06-28 07:29] LABS: Platelet Count 47 k/uL (150-450)
[2018-06-28] MEDS: HYDROcodone/APAP 7.5-325MG 1 EACH TAB PEG/G-TUBE PRN (07:57)
[2018-06-28] MEDS: HEPARIN SODIUM,PORCINE 5,000 UNIT/ML 1 ML VIAL SQ SCH (07:58)
[2018-06-28] MEDS: THIAMINE 100 MG TAB PO SCH (07:58)
[2018-06-28] MEDS: ASPIRIN 81 MG PEG/G-TUBE SCH (07:59)
[2018-06-28] MEDS: METOPROLOL TARTRATE 25 MG TAB PEG/G-TUBE SCH (07:59)
[2018-06-28] MEDS: PANTOPRAZOLE SODIUM 40 MG GRANULE PKT PEG/G-TUBE SCH (07:59)
[2018-06-28] MEDS: NICOTINE 21MG/24HR PATCH TRANSDERM SCH (07:59)
[2018-06-28] MEDS: CHLORHEXIDINE GLUCONATE 15 ML CUP MUCOUS MEM SCH (08:00)
[2018-06-28 08:24] LABS: Basophils # (M) 0.03 k/uL (0-0.2); Eosinophils # (M) 0.09 k/uL (0-0.7); Lymphocytes # (M) 0.93 k/uL (1.0-4.8); Monocytes # (M) 0.31 k/uL (0-1.0); Neutrophils # (M) 1.74 k/uL (1.3-7.7); Neutrophils % (M) 56 %; Nucleated Red Blood Cells 0 /100 WBC (0-0); Total Cells Counted 100
[2018-06-28 15:22] VITALS: BP 115/74; PULSE 100; TEMP 94.6
--- NOTE | 2018-06-28 15:42 | P.DS ---
Providers Date of admission: 06/27/18 15:40 Expected date of discharge: 06/28/18 Attending physician: Alayna Gutiérrez Consults: 06/25/18 10:20 Consult Physician Routine Consulting Provider: Lucille Farrell Consult Reason/Comments: Possible PEG infection Do you want consulting provider notified?: Yes 06/26/18 09:31 Consult Physician Routine Consulting Provider: Lexa Tesfaye Consult Reason/Comments: Abdominal wall infection Do you want consulting provider notified?: Yes Primary care physician: Beth Fuller Hospital Course: Final Diagnoses: -Possible PEG tube site infection, Wound culture Proteus mirabilis. PEG tube site inflammation/ pain r/t eroded PEG tube button next to peg tube, removed by surgery . 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 Patient has significant the foul-smelling and crusting around the PEG tube site area. Patient denied any fever chills patient was also having significant pain in that area. Patient doesn't have any leukocytosis. Patient will be started on vancomycin and infectious disease and gastroenterology will be consulted. Patient denied any significant cough and significant abnormal discharge from the tracheostomy site wound cultures will be obtained. Review of Systems REVIEW OF SYSTEMS: CONSTITUTIONAL: No fever, no malaise, no fatigue. HEENT: No recent visual problems or hearing problems. Denied any sore throat. CARDIOVASCULAR: No chest pain, orthopnea, PND, no palpitations, no syncope. PULMONARY: No shortness of breath, no cough, no hemoptysis. GASTROINTESTINAL: No diarrhea, no nausea, no vomiting, NEUROLOGICAL: No headaches, no weakness, no numbness. HEMATOLOGICAL: Denies any bleeding or petechiae. GENITOURINARY: Denies any burning micturition, frequency, or urgency. MUSCULOSKELETAL/RHEUMATOLOGICAL: Denies any joint pain, swelling, or any muscle pain. ENDOCRINE: Denies any polyuria or polydipsia. The rest of the 14-point review of systems is negative. 06/26/2018 Wound cultures reporting gram-negative bacilli. Vancomycin discontinued, Unasyn initiated as per infectious disease. afebrile, normal WBC. Denies abdominal pain, reports cramping. Significant odor from affected PEG tube site. Hypokalemic, potassium 3.4. GI and surgical consult in place with recommendations pending. Telemetry sinus tachycardia. Minimal shakiness, no DTs. 06/27/2018 abdomen/pelvis CT performed yesterday with no acute findings. Evaluated by surgery with recommendations noted including tube feedings being resumed today. Maintain IV antibiotics as per infectious disease, final cultures pending. Denies chest pain, palpitations or increased shortness of breath. Afebrile, intermittent mild tachycardia. 06/28/18 tolerating tube feeds well, denies pain, no nausea or vomiting. Cleared by all consults for discharge. Patient is being discharged home in a stable condition with guarded prognosis. - Exam GENERAL: Thin built patient is alert and oriented x3, not in any acute distress. tracheostomy and PEG tube present CARDIOVASCULAR: S1 and S2 present. No murmurs, rubs, or gallops. PULMONARY: Chest is clear to auscultation, no wheezing or crackles. ABDOMEN: Soft, nontender, nondistended, normoactive bowel sounds. No palpable organomegaly. Patient's PEG tube site area with minimal redness around the PEG tube site area. NEUROLOGICAL: Gross neurological examination did not reveal any focal deficits. Time taken: 35 minutes Patient Condition at Discharge: Stable Plan - Discharge Summary Discharge Rx Participant: No New Discharge Prescriptions: New Thiamine [Vitamin B-1] 100 mg PEG/G-TUBE DAILY #30 tab Amoxic-Pot Clav 875-125Mg [Augmentin 875-125] 1 tab PEG/G-TUBE Q12HR #14 tablet Continue LORazepam [Ativan] 2 mg PEG/G-TUBE DAILY PRN PRN Reason: Anxiety HYDROcodone/APAP 7.5-325MG [[place] 7.5-325] 1 tab PEG/G-TUBE Q6HR PRN PRN Reason: Pain Chlorhexidine Gluconate [Periogard] 15 ml PO DAILY Baclofen [Lioresal] 10 mg PEG/G-TUBE HS Valproic Acid Oral Soln [Depakene Syrup] 10 ml PEG/G-TUBE Q8H Amitriptyline HCl 50 mg PEG/G-TUBE HS Prochlorperazine [Compazine] 10 mg PEG/G-TUBE Q6H PRN PRN Reason: Nausea Pantoprazole Sodium 40 mg PEG/G-TUBE DAILY QUEtiapine [SEROquel] 50 mg PEG/G-TUBE HS PRN PRN Reason: Anxiety Gabapentin 250mg/5ml 500 mg PEG/G-TUBE Q8H Ipratropium-Albuterol Nebulize [Duoneb 0.5 mg-3 mg/3 ml Soln] 3 ml INHALATION RT-QID PRN PRN Reason: Shortness Of Breath Lansoprazole 3mg/Ml 30 mg PEG/G-TUBE DAILY Melatonin 3 mg PEG/G-TUBE HS Metoprolol Tartrate [Lopressor] 25 mg PEG/G-TUBE BID Nicotine 21Mg/24Hr Patch [Habitrol] 1 patch TRANSDERM DAILY Discharge Medication List Baclofen [Lioresal] 10 mg PEG/G-TUBE HS 07/18/17 [History] Chlorhexidine Gluconate [Periogard] 15 ml PO DAILY 07/18/17 [History] HYDROcodone/APAP 7.5-325MG [[place] 7.5-325] 1 tab PEG/G-TUBE Q6HR PRN 07/18/17 [ History] LORazepam [Ativan] 2 mg PEG/G-TUBE DAILY PRN 07/18/17 [History] Valproic Acid Oral Soln [Depakene Syrup] 10 ml PEG/G-TUBE Q8H 07/18/17 [History] Amitriptyline HCl 50 mg PEG/G-TUBE HS 04/10/18 [History] Pantoprazole Sodium 40 mg PEG/G-TUBE DAILY 04/10/18 [History] Prochlorperazine [Compazine] 10 mg PEG/G-TUBE Q6H PRN 04/10/18 [History] QUEtiapine [SEROquel] 50 mg PEG/G-TUBE HS PRN 04/10/18 [History] Gabapentin 250mg/5ml 500 mg PEG/G-TUBE Q8H 06/25/18 [History] Ipratropium-Albuterol Nebulize [Duoneb 0.5 mg-3 mg/3 ml Soln] 3 ml INHALATION RT -QID PRN 06/25/18 [History] Lansoprazole 3mg/Ml 30 mg PEG/G-TUBE DAILY 06/25/18 [History] Melatonin 3 mg PEG/G-TUBE HS 06/25/18 [History] Metoprolol Tartrate [Lopressor] 25 mg PEG/G-TUBE BID 06/25/18 [History] Nicotine 21Mg/24Hr Patch [Habitrol] 1 patch TRANSDERM DAILY 06/25/18 [History] Amoxic-Pot Clav 875-125Mg [Augmentin 875-125] 1 tab PEG/G-TUBE Q12HR #14 tablet 06/28/18 [Rx] Thiamine [Vitamin B-1] 100 mg PEG/G-TUBE DAILY #30 tab 06/28/18 [Rx] Follow up Appointment(s)/Referral(s): Alina Campos MD [Primary Care Provider] - 07/05/18 10:10 am Patient Instructions/Handouts: How to Use and Care for Your PEG Tube (DC), Tachycardia (GEN) Activity/Diet/Wound Care/Special Instructions: Antibiotics as per infectious disease . Tube feeding and supplies [facility]: #[phone]
--- NOTE | 2018-06-28 16:59 | PN ---
PROGRESS NOTE DATE OF SERVICE: 06/28/2018 REASON FOR FOLLOWUP: Possible PEG tube site infection. INTERVAL HISTORY: The patient is currently afebrile. He is breathing comfortably. Denies having any chest pain, shortness of breath or cough. Abdominal pain has improved. He has been tolerating his tube feeds. No nausea, vomiting, and no diarrhea. PHYSICAL EXAMINATION: Blood pressure 105/64, pulse of 91, temperature 98.3. He is 93% on room air. General description is a middle-aged male lying in bed in no distress. RESPIRATORY SYSTEM: Unlabored breathing. Clear to auscultation anteriorly. HEART: S1, S2. Regular rate and rhythm. ABDOMEN: Soft. No tenderness. LABS: Hemoglobin is 12.9, white count 3.1 with a BUN of 9, creatinine 0.68. DIAGNOSTIC IMPRESSION AND PLAN: Patient admitted to hospital with abdominal pain with nonfunctional PEG tube, status post removal of the PEG tube button. Culture positive for Proteus mirabilis. Will give a short course of oral Augmentin with close outpatient followup. Prescription sent to the pharmacy. MMODL / IJN: [id number] /
== END 2018-06-28 16:25 | disposition home or self-care (01) | DRG 394 ==
LOC: EC 20:25 → 4SSUR 22:02 → OBSVTOIN 06-27 15:40
PROVIDERS: ADMIT Hospitalist; ATTEND Hospitalist
PROC: 0DP6XUZ Removal of Feeding Device from Stomach, External Approach (ICD-10-PCS; principal; 2018-06-26)
DX: K94.23 Gastrostomy malfunction (principal); L03.311 Cellulitis of abdominal wall; E46 Unspecified protein-calorie malnutrition; Z68.1 Body mass index [BMI] 19.9 or less, adult; E87.1 Hypo-osmolality and hyponatremia; K94.22 Gastrostomy infection; E86.1 Hypovolemia; J44.9 Chronic obstructive pulmonary disease, unspecified; K21.9 Gastro-esophageal reflux disease without esophagitis; G40.909 Epilepsy, unspecified, not intractable, without status epilepticus; F32.9 Major depressive disorder, single episode, unspecified; F41.9 Anxiety disorder, unspecified; F17.210 Nicotine dependence, cigarettes, uncomplicated; B96.4 Proteus (mirabilis) (morganii) as the cause of diseases classified elsewhere; E87.6 Hypokalemia; Z79.82 Long term (current) use of aspirin; Z79.899 Other long term (current) drug therapy; I25.2 Old myocardial infarction; Z93.0 Tracheostomy status; Z85.818 Personal history of malignant neoplasm of other sites of lip, oral cavity, and pharynx
CPT/HCPCS: 36415; 74176; 80048; 84443; 85025; 85027; 87070; 87075; 87077; 87186; 87205; 93005; 96361; 96374; 99285

== ENCOUNTER 2018-09-15 11:54 | Inpatient (IN) | payer MEDICAID, OTHER ==
--- NOTE | 2018-09-15 22:33 | CT ---
EXAMINATION TYPE: TEMPORARY DATE OF EXAM: 09/15/2018 COMPARISON: Correlation CT abdomen pelvis 06/26/2018 HISTORY: 58-year-old male fall, left rib pain, GI bleed TECHNIQUE: Contiguous axial scanning of the chest, abdomen, and pelvis after the administration of 10 0 mL of Isovue 300. Delayed images of the kidneys. Coronal/sagittal reconstructions performed. CT DLP: 728.6mGycm. Automatic exposure control utilized for a dose reduction. FINDINGS: Chest: Heart normal size without pericardial effusion. Coronary vessel calcifications are present. Aorta normal caliber with conventional vessel branching anatomy. Tracheostomy cannula is present. There is some focal circumferential thickening of the mid thoracic esophagus, axial image 27 and juliane tional moderate circumferential thickening of the distal esophagus, axial image 45. Some adjacent sof t tissue thickening and a 1 cm lower right paraesophageal lymph node are noted. Some strandy scarring in the lower lungs. No consolidation, pneumothorax, or pleural effusion. Subtle nondisplaced fractures of the left lateral eighth, ninth, and 10th ribs. ABDOMEN: Liver borderline enlarged at 17.8 cm with low-attenuation suggesting fatty infiltration. There is claire e focal fat also along the anterior falciform ligament. Portal venous system is patent. No biliary du ctal dilatation. Gallbladder, adrenal glands, kidneys, and mildly atrophic pancreas show no gross abnormal body. Calci fied granulomas in the spleen. No dilated small bowel, free fluid, or free air. No mesenteric or retroperitoneal lymphadenopathy. Moderate atherosclerotic calcifications within the abdominal aorta and iliac arteries. A PEG tube remains in place. Some nonspecific nonenlarged left mid abdominal lymph nodes measuring up to 5 mm. Some prominent fluid-filled small bowel loops throughout the mid and lower abdomen. No abnormal bowel dilatation. Normal appendix. Liquid stool in the right side of the colon. Some additional scattered liquid stool in the transverse colon. No pericolonic inflammatory change. Pelvis: Bladder urine distended. Prostate gland measures 3.6 cm wide. No abnormal fluid collection in the pel vis or pelvic lymphadenopathy seen. Bones: Left-sided rib fractures as mentioned above. Degenerative changes in both hips and right SI joint. Ad vanced degenerative changes mid to lower lumbar spine and moderate to severe throughout the lower tho racic spine. IMPRESSION: 1. Nondisplaced fractures of the left lateral eighth, ninth, and 10th ribs. 2. Moderate circumferential wall thickening of the mid thoracic esophagus and also distal esophagus. There is some adjacent soft tissue thickening or edema and a prominent 1 cm paraesophageal lymph node . Correlate for any symptoms of esophagitis. Direct visualization to exclude underlying neoplasm. 3. Prominent fluid-filled small bowel loops mid and lower abdomen and liquid stool in the right side of the colon. Query any symptoms of ileus or enteritis. 4. Advanced degenerative changes in the lumbar spine and lower thoracic spine.
--- NOTE | 2018-09-15 22:46 | XR ---
EXAMINATION TYPE: 2 views chest 2 views abdomen 4 views left rib series DATE OF EXAM: 09/15/2018 Comparison: None Clinical History: 58-year-old male shortness of breath and pain Findings: CHEST: Tracheostomy cannula is present. Heart normal size. Aorta and pulmonary vasculature within normal samuels its. Mild interstitial prominence with mild hyperinflation with increased AP chest dimension. Left an terior chest wall injection port catheter tip seen near the cavoatrial junction. No consolidation or pleural effusion. Abdomen: No evidence for free intraperitoneal air. Multiple scattered air-fluid levels are present throughout . These appear to be within central small bowel loops and throughout the colon as well. No dilated sm all bowel is seen. Left rib series: Nondisplaced fractures of the left lateral, anterolateral eighth, ninth, and 10th ribs. Impression: 1. Chest: COPD without acute cardiopulmonary process. 2. Abdomen: Multiple air-fluid levels throughout centrally involving small bowel but also throughout the colon. No dilated small bowel seen. Findings suggest diffuse ileus or enteritis rather than obstr uction. Clinically correlate. 3. Left rib series: Nondisplaced fractures of the left lateral/anterolateral eighth, ninth, and 10th ribs.
[2018-09-15] MEDS ORDERED: QUEtiapine 50 MG TAB PEG/G-TUBE PRN (23:37)
[2018-09-15] MEDS ORDERED: LORazepam 1 MG TAB PEG/G-TUBE PRN (23:37)
[2018-09-16] MEDS: METOPROLOL TARTRATE 25 MG TAB PEG/G-TUBE SCH ×3 (00:31→20:10)
[2018-09-16] MEDS: GABAPENTIN PEG/G-TUBE SCH ×3 (00:35→16:17)
[2018-09-16 00:53] LABS: Appearance,Urine Clear (Clear); Bilirubin,Urine Negative (Negative); Blood,Urine Negative (Negative); Color,Urine Yellow; Glucose,Urine (UA) Negative (Negative); Ketones,Urine Trace (Negative); Leukocyte Esterase,Urine Negative (Negative); Nitrite,Urine Negative (Negative); Protein,Urine Negative (Negative); Specific Gravity,Urine 1.011 (1.001-1.035); Urobilinogen,Urine <2.0 mg/dL (<2.0)
[2018-09-16] MEDS: VALPROIC ACID ORAL SOLN 250 MG/5 ML CUP PEG/G-TUBE SCH ×4 (01:06→23:48)
[2018-09-16 01:23] VITALS: RESP 18; BMI 20.9
[2018-09-16 02:02] LABS: Creatine Kinase 63 U/L (55-170); Creatine Kinase MB 3.1 ng/mL (0.0-2.4); Troponin I <0.012 ng/mL (0.000-0.034)
[2018-09-16 02:08] LABS: ALT 37 U/L (21-72); AST 47 U/L (17-59); Albumin 4.1 g/dL (3.5-5.0); Alkaline Phosphatase 75 U/L (38-126); Amylase <30 U/L (30-110); Anion Gap 14 mmol/L; Blood Urea Nitrogen 16 mg/dL (9-20); Calcium 9.4 mg/dL (8.4-10.2); Carbon Dioxide 26 mmol/L (22-30); Chloride 89 mmol/L (98-107); Glucose 104 mg/dL (74-99); Lipase 186 U/L (23-300); Magnesium 1.9 mg/dL (1.6-2.3); Phosphorus 2.2 mg/dL (2.5-4.5); Potassium 4.1 mmol/L (3.5-5.1); Sodium 129 mmol/L (137-145); Total Protein 7.3 g/dL (6.3-8.2)
[2018-09-16 03:18] LABS: ALT 32 U/L (21-72); AST 26 U/L (17-59); Albumin 2.9 g/dL (3.5-5.0); Alkaline Phosphatase 57 U/L (38-126); Anion Gap 4 mmol/L; Blood Urea Nitrogen 9 mg/dL (9-20); Calcium 8.4 mg/dL (8.4-10.2); Carbon Dioxide 29 mmol/L (22-30); Chloride 100 mmol/L (98-107); Glucose 96 mg/dL (74-99); Potassium 3.4 mmol/L (3.5-5.1); Sodium 133 mmol/L (137-145); Total Bilirubin 0.7 mg/dL (0.2-1.3); Total Protein 5.6 g/dL (6.3-8.2)
[2018-09-16 03:40] LABS: Basophils # (A) 0.1 k/uL (0-0.2); Basophils % (A) 0 %; Eosinophils # (A) 0.1 k/uL (0-0.7); Eosinophils % (A) 0 %; HGB 13.4 gm/dL (13.0-17.5); Lymphocytes # (A) 0.9 k/uL (1.0-4.8); Lymphocytes % (A) 6 %; MCH 34.8 pg (25.0-35.0); MCHC 33.5 g/dL (31.0-37.0); Macrocytosis Slight; Mean Platelet Volume 8.7; Monocytes % (A) 7 %; Neutrophils # (A) 12.7 k/uL (1.3-7.7); Neutrophils % (A) 85 %; Platelet Count 114 k/uL (150-450); RBC 3.84 m/uL (4.30-5.90); RDW 12.5 % (11.5-15.5); WBC 14.9 k/uL (3.8-10.6)
[2018-09-16 03:55] LABS: Basophils % (A) 0 %; Eosinophils # (A) 0.1 k/uL (0-0.7); Eosinophils % (A) 1 %; HCT 32.7 % (39.0-53.0); HGB 10.5 gm/dL (13.0-17.5); Lymphocytes # (A) 0.7 k/uL (1.0-4.8); Lymphocytes % (A) 6 %; MCHC 32.2 g/dL (31.0-37.0); MCV 105.6 fL (80.0-100.0); Macrocytosis Slight; Mean Platelet Volume 7.9; Monocytes # (A) 0.7 k/uL (0-1.0); Monocytes % (A) 6 %; Neutrophils # (A) 10.4 k/uL (1.3-7.7); Neutrophils % (A) 85 %; RBC 3.09 m/uL (4.30-5.90); RDW 12.7 % (11.5-15.5); WBC 12.3 k/uL (3.8-10.6)
[2018-09-16 04:04] LABS: Platelet Count 91 k/uL (150-450)
[2018-09-16] MEDS: HYDROcodone/APAP 7.5-325MG 1 EACH TAB PEG/G-TUBE PRN ×2 (04:24→20:10)
[2018-09-16] MEDS: SODIUM CHLORIDE 0.9% 1,000 ML IV SCH ×3 (05:09→20:11)
[2018-09-16] MEDS: IPRATROPIUM-ALBUTEROL 3 ML NEB INHALATION PRN ×4 (07:41→18:59)
[2018-09-16] MEDS: LANSOPRAZOLE PEG/G-TUBE SCH (09:41)
[2018-09-16] MEDS: THIAMINE 100 MG TAB PEG/G-TUBE SCH (09:43)
[2018-09-16] MEDS: PANTOPRAZOLE 40 MG/10 ML VIAL IVP SCH (09:43)
--- NOTE | 2018-09-16 17:36 | P.HPIM ---
History of Present Illness Patient is a 71-year-old the male with history of oral cancer came in with hematemesis along with retrosternal burning sensation. Patient is admitted with Protonix CAT scan of the abdomen was obtained along with multiple other CAT scan because of his fall there are no fractures but the abdominal CAT scan is suspicious very sedated thickening with the lymphadenopathy. Patient may need upper GI endoscopy. Patient has a tracheostomy and PEG tube in place with trach apparently need to be replaced. Patient denied any fever chills cough Review of Systems REVIEW OF SYSTEMS: CONSTITUTIONAL: No fever, no malaise, no fatigue. HEENT: No recent visual problems or hearing problems. Denied any sore throat. CARDIOVASCULAR: No chest pain, orthopnea, PND, no palpitations, no syncope. PULMONARY: No shortness of breath, no cough, no hemoptysis. GASTROINTESTINAL: As mentioned above NEUROLOGICAL: No headaches, no weakness, no numbness. HEMATOLOGICAL: Denies any bleeding or petechiae. GENITOURINARY: Denies any burning micturition, frequency, or urgency. MUSCULOSKELETAL/RHEUMATOLOGICAL: Denies any joint pain, swelling, or any muscle pain. ENDOCRINE: Denies any polyuria or polydipsia. The rest of the 14-point review of systems is negative. Past Medical History Past Medical History: Cancer, COPD, GERD/Reflux, Myocardial Infarction ([place]), Seizure Disorder Additional Past Medical History / Comment(s): low blood pressure, oral cancer- 2014, "everything through peg tube"-nothing oral(will go to his lungs per pt) all liquid food, current fx rt tibia February 2018- has cast on Last Myocardial Infarction Date:: 2014 History of Any Multi-Drug Resistant Organisms: None Reported Past Surgical History: Heart Catheterization Additional Past Surgical History / Comment(s): trachestomy, oral surgery for cancer removal, Past Anesthesia/Blood Transfusion Reactions: No Reported Reaction Additional Past Anesthesia/Blood Transfusion Reaction / Comment(s): adopted - no family hx Past Psychological History: Anxiety, Depression Smoking Status: Current every day smoker Past Alcohol Use History: Occasional Additional Past Alcohol Use History / Comment(s): smokes < 1/2 PPD, has smoked since age 18 Past Drug Use History: None Reported - Past Family History Mother Family Medical History: Unable to Obtain Additional Family Medical History / Comment(s): pt is adopted Medications and Allergies Home Medications Medication Instructions Recorded Confirmed Type Baclofen [Lioresal] 10 mg PEG/G-TUBE HS 07/18/17 09/15/18 History Chlorhexidine Gluconate [Periogard] 15 ml PO DAILY 07/18/17 08/22/18 History HYDROcodone/APAP 7.5-325MG [[place] 1 tab PEG/G-TUBE Q6HR PRN 07/18/17 09/15/18 History 7.5-325] LORazepam [Ativan] 2 mg PEG/G-TUBE DAILY PRN 07/18/17 09/15/18 History Valproic Acid Oral Soln [Depakene 10 ml PEG/G-TUBE Q8H 07/18/17 09/15/18 History Syrup] Amitriptyline HCl 50 mg PEG/G-TUBE HS 04/10/18 09/15/18 History Pantoprazole Sodium 40 mg PEG/G-TUBE DAILY 04/10/18 09/15/18 History QUEtiapine [SEROquel] 50 mg PEG/G-TUBE HS PRN 04/10/18 09/15/18 History Gabapentin 250mg/5ml 500 mg PEG/G-TUBE Q8H 06/25/18 09/15/18 History Ipratropium-Albuterol Nebulize 3 ml INHALATION RT-QID PRN 06/25/18 09/15/18 History [Duoneb 0.5 mg-3 mg/3 ml Soln] Lansoprazole 3mg/Ml 30 mg PEG/G-TUBE DAILY 06/25/18 09/15/18 History Melatonin 3 mg PEG/G-TUBE HS 06/25/18 09/15/18 History Metoprolol Tartrate [Lopressor] 25 mg PEG/G-TUBE BID 06/25/18 09/15/18 History Nicotine 21Mg/24Hr Patch [Habitrol] 1 patch TRANSDERM DAILY 06/25/18 09/15/18 History Thiamine [Vitamin B-1] 100 mg PEG/G-TUBE DAILY #30 tab 06/28/18 09/15/18 Rx Allergies Allergy/AdvReac Type Severity Reaction Status Date / Time No Known Allergies Allergy Verified 09/16/18 08:00 Physical Exam Vitals: Vital Signs Temp Pulse Pulse Resp BP Pulse Ox 09/16/18 15:18 84 09/16/18 15:08 82 09/16/18 14:18 98.6 F 105 H 102/66 98 09/16/18 11:10 84 09/16/18 10:45 82 09/16/18 09:43 105 H 18 09/16/18 09:32 97.8 F 105 H 18 109/70 99 09/16/18 08:07 84 09/16/18 07:41 80 09/16/18 03:18 117 H 18 09/15/18 23:02 98 F 117 H 18 108/61 92 L Intake and Output 09/16/18 09/16/18 09/16/18 06:59 14:59 22:59 Output Total 650 Balance -650 Output: Urine 650 Other: Voiding Method Urinal # Voids 1 Weight 70 kg PHYSICAL EXAMINATION: GENERAL: The patient is alert and oriented x3, not in any acute distress. Well developed, well nourished. HEENT: Pupils are round and equally reacting to light. EOMI. No scleral icterus. No conjunctival pallor. Normocephalic, atraumatic. No pharyngeal erythema. No thyromegaly. Ostomy in place no thick discharge from the tracheostomy CARDIOVASCULAR: S1 and S2 present. No murmurs, rubs, or gallops. PULMONARY: Chest is clear to auscultation, no wheezing or crackles. ABDOMEN: Soft, nontender, nondistended, normoactive bowel sounds. No palpable organomegaly. PEG tube site is not infected MUSCULOSKELETAL: No joint swelling or deformity. EXTREMITIES: No cyanosis, clubbing, or pedal edema. NEUROLOGICAL: Gross neurological examination did not reveal any focal deficits. SKIN: No rashes. Results CBC & Chem 7: 09/16/18 02:44 09/16/18 02:44 Labs: Abnormal Lab Results - Last 24 Hours (Table) 09/15/18 09/15/18 09/15/18 Range/Units 12:20 12:20 12:20 WBC 14.9 H (3.8-10.6) k/uL RBC 3.84 L (4.30-5.90) m/uL Hgb (13.0-17.5) gm/dL Hct (39.0-53.0) % MCV 104.0 H (80.0-100.0) fL Plt Count 114 L (150-450) k/uL Neutrophils # 12.7 H (1.3-7.7) k/uL Lymphocytes # 0.9 L (1.0-4.8) k/uL Sodium 129 L (137-145) mmol/L Potassium (3.5-5.1) mmol/L Chloride 89 L (98-107) mmol/L Creatinine 0.57 L (0.66-1.25) mg/dL Glucose 104 H (74-99) mg/dL Plasma Lactic Acid Turner 2.4 H* (0.7-2.0) mmol/L Phosphorus 2.2 L (2.5-4.5) mg/dL CK-MB (CK-2) (0.0-2.4) ng/mL Total Protein (6.3-8.2) g/dL Albumin (3.5-5.0) g/dL Amylase <30 L (30-110) U/L Urine Ketones (Negative) 09/15/18 09/15/18 09/16/18 Range/Units 12:20 12:20 02:44 WBC 12.3 H (3.8-10.6) k/uL RBC 3.09 L (4.30-5.90) m/uL Hgb 10.5 L (13.0-17.5) gm/dL Hct 32.7 L (39.0-53.0) % MCV 105.6 H (80.0-100.0) fL Plt Count 91 L (150-450) k/uL Neutrophils # 10.4 H (1.3-7.7) k/uL Lymphocytes # 0.7 L (1.0-4.8) k/uL Sodium (137-145) mmol/L Potassium (3.5-5.1) mmol/L Chloride (98-107) mmol/L Creatinine (0.66-1.25) mg/dL Glucose (74-99) mg/dL Plasma Lactic Acid Turner (0.7-2.0) mmol/L Phosphorus (2.5-4.5) mg/dL CK-MB (CK-2) 3.1 H (0.0-2.4) ng/mL Total Protein (6.3-8.2) g/dL Albumin (3.5-5.0) g/dL Amylase (30-110) U/L Urine Ketones Trace H (Negative) 09/16/18 Range/Units 02:44 WBC (3.8-10.6) k/uL RBC (4.30-5.90) m/uL Hgb (13.0-17.5) gm/dL Hct (39.0-53.0) % MCV (80.0-100.0) fL Plt Count (150-450) k/uL Neutrophils # (1.3-7.7) k/uL Lymphocytes # (1.0-4.8) k/uL Sodium 133 L (137-145) mmol/L Potassium 3.4 L (3.5-5.1) mmol/L Chloride (98-107) mmol/L Creatinine 0.52 L (0.66-1.25) mg/dL Glucose (74-99) mg/dL Plasma Lactic Acid Turner (0.7-2.0) mmol/L Phosphorus (2.5-4.5) mg/dL CK-MB (CK-2) (0.0-2.4) ng/mL Total Protein 5.6 L (6.3-8.2) g/dL Albumin 2.9 L (3.5-5.0) g/dL Amylase (30-110) U/L Urine Ketones (Negative) Thrombosis Risk Factor Assmnt - Choose All That Apply Any of the Below Risk Factors Present?: Yes Each Factor Represents 1 point: Abnormal pulmonary function (COPD), Age 41-60 years Other Risk Factors: No Other congenital or acquired thrombophilia - If yes, enter type in comment: No Thrombosis Risk Factor Assessment Total Risk Factor Score: 2 Thrombosis Risk Factor Assessment Level: Low Risk Assessment and Plan Plan: -Acute upper GI bleed probably due to esophagitis or gastritis: Patient was started on Protonix gastroenterology was consulted -Esophageal thickening with the possible paraesophageal lymphadenopathy patient may need upper GI endoscopy will let gastroenterology aware of that. -History of oral cancer status post tracheostomy PEG tube and oral reconstructive surgery in the past -COPD without any acute exacerbation -Seizure disorder -Depression
[2018-09-16] MEDS ORDERED: AMITRIPTYLINE HCL 50 MG TAB PEG/G-TUBE SCH (21:00)
[2018-09-16] MEDS ORDERED: BACLOFEN 10 MG TAB PEG/G-TUBE SCH (21:00)
[2018-09-16] MEDS ORDERED: MELATONIN 3 MG TABLET PEG/G-TUBE SCH (21:00)
[2018-09-16] MEDS ORDERED: MORPHINE SULFATE 2 MG/ML SYRINGE IVP PRN (22:01)
[2018-09-16] MEDS: GABAPENTIN 250 MG/5 ML PEG/G-TUBE SCH (23:48)
[2018-09-17 01:09] VITALS: TEMP 97.9
--- NOTE | 2018-09-17 01:32 | P.CONS ---
History of Present Illness - Reason for Consult Consult date: 09/16/18 GI bleeding. - History of Present Illness The patient is a 71-year-old male with history of oral cancer who presented with hematemesis and retrosternal burning sensation. The patient was also having chest pains following a viral and he had computed tomography scans that revealed thickening in the esophagus and suspected lymphadenopathy. He also had evidence of rib fractures. The patient had prior tracheostomy and PEG tube placement. He denied fever, chills or any change in the color of his stools. No abdominal pains. Review of Systems Constitutional: Denies fever, chills, sweats, weight gain, or loss. HEENT: Negative for migraines, blurred vision or loss, earaches, drainage, tinnitus, oral mucosal lesions, dysphagia, or odynophagia. CARDIAC: Negative for chest pain, arrhythmias, or palpitation. RESPIRATORY: Negative for shortness of breath, hemoptysis, cough, or sputum production. GI: See HPI for pertinent findings. : Negative for hematuria, urgency, frequency, polyuria, or dysuria. MUSCULOSKELETAL: Negative for muscle aches, swelling, arthritis, and arthralgias. NEUROLOGIC: Negative for stroke or TIA. ENDOCRINE: Negative for thyroid problems. SKIN: Negative for rash or itching. PSYCHIATRIC: Negative history for depression and anxiety Past Medical History Past Medical History: Cancer, COPD, GERD/Reflux, Myocardial Infarction ([place]), Seizure Disorder Additional Past Medical History / Comment(s): low blood pressure, oral cancer- 2014, "everything through peg tube"-nothing oral(will go to his lungs per pt) all liquid food, current fx rt tibia February 2018- has cast on Last Myocardial Infarction Date:: 2014 History of Any Multi-Drug Resistant Organisms: None Reported Past Surgical History: Heart Catheterization Additional Past Surgical History / Comment(s): trachestomy, oral surgery for cancer removal, Past Anesthesia/Blood Transfusion Reactions: No Reported Reaction Additional Past Anesthesia/Blood Transfusion Reaction / Comm: adopted - no family hx Past Psychological History: Anxiety, Depression Smoking Status: Current every day smoker Past Alcohol Use History: Occasional Additional Past Alcohol Use History / Comment(s): smokes < 1/2 PPD, has smoked since age 18 Past Drug Use History: None Reported - Past Family History Mother Family Medical History: Unable to Obtain Additional Family Medical History / Comment(s): pt is adopted Medications and Allergies Home Medications Medication Instructions Recorded Confirmed Type Baclofen [Lioresal] 10 mg PEG/G-TUBE HS 07/18/17 09/15/18 History Chlorhexidine Gluconate [Periogard] 15 ml PO DAILY 07/18/17 08/22/18 History HYDROcodone/APAP 7.5-325MG [[place] 1 tab PEG/G-TUBE Q6HR PRN 07/18/17 09/15/18 History 7.5-325] LORazepam [Ativan] 2 mg PEG/G-TUBE DAILY PRN 07/18/17 09/15/18 History Valproic Acid Oral Soln [Depakene 10 ml PEG/G-TUBE Q8H 07/18/17 09/15/18 History Syrup] Amitriptyline HCl 50 mg PEG/G-TUBE HS 04/10/18 09/15/18 History Pantoprazole Sodium 40 mg PEG/G-TUBE DAILY 04/10/18 09/15/18 History QUEtiapine [SEROquel] 50 mg PEG/G-TUBE HS PRN 04/10/18 09/15/18 History Gabapentin 250mg/5ml 500 mg PEG/G-TUBE Q8H 06/25/18 09/15/18 History Ipratropium-Albuterol Nebulize 3 ml INHALATION RT-QID PRN 06/25/18 09/15/18 History [Duoneb 0.5 mg-3 mg/3 ml Soln] Lansoprazole 3mg/Ml 30 mg PEG/G-TUBE DAILY 06/25/18 09/15/18 History Melatonin 3 mg PEG/G-TUBE HS 06/25/18 09/15/18 History Metoprolol Tartrate [Lopressor] 25 mg PEG/G-TUBE BID 06/25/18 09/15/18 History Nicotine 21Mg/24Hr Patch [Habitrol] 1 patch TRANSDERM DAILY 06/25/18 09/15/18 History Thiamine [Vitamin B-1] 100 mg PEG/G-TUBE DAILY #30 tab 06/28/18 09/15/18 Rx Allergies Allergy/AdvReac Type Severity Reaction Status Date / Time No Known Allergies Allergy Verified 09/16/18 08:00 Physical Exam Vitals: Vital Signs Temp Pulse Pulse Resp BP Pulse Ox 09/16/18 15:18 84 09/16/18 15:08 82 09/16/18 14:18 98.6 F 105 H 102/66 98 09/16/18 11:10 84 09/16/18 10:45 82 09/16/18 09:43 105 H 18 09/16/18 09:32 97.8 F 105 H 18 109/70 99 09/16/18 08:07 84 09/16/18 07:41 80 09/16/18 03:18 117 H 18 09/15/18 23:02 98 F 117 H 18 108/61 92 L Intake and Output 09/16/18 09/16/18 09/16/18 06:59 14:59 22:59 Output Total 650 Balance -650 Output: Urine 650 Other: Voiding Method Urinal # Voids 1 Weight 70 kg General appearance: The patient is stated age, pleasant in no apparent distress. HET: Head is normocephalic and atraumatic. Pupils are equal and reactive. Oropharynx is clear without lesions. Neck: Supple without lymphadenopathy. Trachea midline. Tracheostomy in place. Heart: S1 S2. Regular rate and rhythm. Lungs: No crackles or wheezes are heard. Abdomen: Soft, nontender, nondistended with bowel sounds. No peritoneal signs. No palpable organomegaly or masses. PEG tube site not infected. Extremities: Normal skin color and turgor. No cyanosis, rash, ulceration, clubbing, or edema. Radial and pedal pulses are 2/4 bilaterally. Neurological: Oriented X3. No focal deficits. Strength and sensation are grossly intact. Results CBC & Chem 7: 09/16/18 02:44 09/16/18 02:44 Labs: Abnormal Lab Results - Last 24 Hours (Table) 09/15/18 09/15/18 09/15/18 Range/Units 12:20 12:20 12:20 WBC 14.9 H (3.8-10.6) k/uL RBC 3.84 L (4.30-5.90) m/uL Hgb (13.0-17.5) gm/dL Hct (39.0-53.0) % MCV 104.0 H (80.0-100.0) fL Plt Count 114 L (150-450) k/uL Neutrophils # 12.7 H (1.3-7.7) k/uL Lymphocytes # 0.9 L (1.0-4.8) k/uL Sodium 129 L (137-145) mmol/L Potassium (3.5-5.1) mmol/L Chloride 89 L (98-107) mmol/L Creatinine 0.57 L (0.66-1.25) mg/dL Glucose 104 H (74-99) mg/dL Plasma Lactic Acid Turner 2.4 H* (0.7-2.0) mmol/L Phosphorus 2.2 L (2.5-4.5) mg/dL CK-MB (CK-2) (0.0-2.4) ng/mL Total Protein (6.3-8.2) g/dL Albumin (3.5-5.0) g/dL Amylase <30 L (30-110) U/L Urine Ketones (Negative) 09/15/18 09/15/18 09/16/18 Range/Units 12:20 12:20 02:44 WBC 12.3 H (3.8-10.6) k/uL RBC 3.09 L (4.30-5.90) m/uL Hgb 10.5 L (13.0-17.5) gm/dL Hct 32.7 L (39.0-53.0) % MCV 105.6 H (80.0-100.0) fL Plt Count 91 L (150-450) k/uL Neutrophils # 10.4 H (1.3-7.7) k/uL Lymphocytes # 0.7 L (1.0-4.8) k/uL Sodium (137-145) mmol/L Potassium (3.5-5.1) mmol/L Chloride (98-107) mmol/L Creatinine (0.66-1.25) mg/dL Glucose (74-99) mg/dL Plasma Lactic Acid Turner (0.7-2.0) mmol/L Phosphorus (2.5-4.5) mg/dL CK-MB (CK-2) 3.1 H (0.0-2.4) ng/mL Total Protein (6.3-8.2) g/dL Albumin (3.5-5.0) g/dL Amylase (30-110) U/L Urine Ketones Trace H (Negative) 09/16/18 Range/Units 02:44 WBC (3.8-10.6) k/uL RBC (4.30-5.90) m/uL Hgb (13.0-17.5) gm/dL Hct (39.0-53.0) % MCV (80.0-100.0) fL Plt Count (150-450) k/uL Neutrophils # (1.3-7.7) k/uL Lymphocytes # (1.0-4.8) k/uL Sodium 133 L (137-145) mmol/L Potassium 3.4 L (3.5-5.1) mmol/L Chloride (98-107) mmol/L Creatinine 0.52 L (0.66-1.25) mg/dL Glucose (74-99) mg/dL Plasma Lactic Acid Turner (0.7-2.0) mmol/L Phosphorus (2.5-4.5) mg/dL CK-MB (CK-2) (0.0-2.4) ng/mL Total Protein 5.6 L (6.3-8.2) g/dL Albumin 2.9 L (3.5-5.0) g/dL Amylase (30-110) U/L Urine Ketones (Negative) Assessment and Plan Assessment: 58-year-old male with upper GI bleeding likely related to esophagitis. Other upper GI pathology should be considered especially in light of his history of oral cancer and abnormalities noted on CT. Chest pains related to rib fractures secondary to his fall. Plan: Agree with her current management. Would consider an upper endoscopy during this hospitalization. Patient is already on Protonix which would be continued.
[2018-09-17 07:18] LABS: HCT 31.9 % (39.0-53.0); HGB 10.4 gm/dL (13.0-17.5); MCH 34.7 pg (25.0-35.0); MCHC 32.5 g/dL (31.0-37.0); MCV 106.9 fL (80.0-100.0); Macrocytosis Moderate; RBC 2.98 m/uL (4.30-5.90); RDW 12.4 % (11.5-15.5); WBC 7.9 k/uL (3.8-10.6)
[2018-09-17 07:22] LABS: Platelet Count 87 k/uL (150-450)
[2018-09-17 07:36] LABS: Anion Gap 6 mmol/L; Blood Urea Nitrogen 5 mg/dL (9-20); Calcium 8.4 mg/dL (8.4-10.2); Carbon Dioxide 29 mmol/L (22-30); Chloride 102 mmol/L (98-107); Glucose 76 mg/dL (74-99); Sodium 137 mmol/L (137-145)
[2018-09-17] MEDS: GABAPENTIN 250 MG/5 ML PEG/G-TUBE SCH (08:06)
[2018-09-17] MEDS: THIAMINE 100 MG TAB PEG/G-TUBE SCH (08:06)
[2018-09-17] MEDS: VALPROIC ACID ORAL SOLN 250 MG/5 ML CUP PEG/G-TUBE SCH (08:06)
[2018-09-17] MEDS: PANTOPRAZOLE 40 MG/10 ML VIAL IVP SCH (08:06)
[2018-09-17] MEDS: METOPROLOL TARTRATE 25 MG TAB PEG/G-TUBE SCH (08:07)
[2018-09-17] MEDS: HYDROcodone/APAP 7.5-325MG 1 EACH TAB PEG/G-TUBE PRN (08:10)
[2018-09-17] MEDS: SODIUM CHLORIDE 0.9% 1,000 ML IV SCH (08:21)
[2018-09-17 08:22] VITALS: BP 126/76
[2018-09-17] MEDS: IPRATROPIUM-ALBUTEROL 3 ML NEB INHALATION PRN (09:41)
[2018-09-17 10:00] VITALS: PULSE 88
[2018-09-17] MEDS: LANSOPRAZOLE PEG/G-TUBE SCH (11:08)
[2018-09-17] MEDS ORDERED: Potassium Replacement Protocol 1 EACH MISC MISCELLANE PRN (12:19)
[2018-09-17] MEDS ORDERED: GABAPENTIN PEG/G-TUBE SCH (16:00)
--- NOTE | 2018-09-17 17:35 | P.DS ---
Providers Date of admission: 09/15/18 23:07 Expected date of discharge: 09/17/18 Attending physician: Td Gutiérrez Consults: 09/16/18 14:09 Consult Physician Routine Consulting Provider: No Caballero Consult Reason/Comments: GI Bleed Do you want consulting provider notified?: Yes Primary care physician: Beth Fuller Hospital Course: Final Diagnoses: -Acute upper GI bleed probably due to esophagitis or gastritis -Esophageal thickening with the possible paraesophageal lymphadenopathy, possible OP upper GI endoscopy -History of oral cancer status post tracheostomy PEG tube and oral reconstructive surgery in the past -COPD without any acute exacerbation -Seizure disorder -Depression -Hypokalemia Hospital Course:Patient is a 71-year-old the male with history of oral cancer came in with hematemesis along with retrosternal burning sensation. Patient is admitted with Protonix CAT scan of the abdomen was obtained along with multiple other CAT scan because of his fall there are no fractures but the abdominal CAT scan is suspicious very sedated thickening with the lymphadenopathy. Patient may need upper GI endoscopy. Patient has a tracheostomy and PEG tube in place with trach apparently need to be replaced. Patient denied any fever chills cough. Hemoglobin stable.Evaluated by GI. Patient unable to afford Prilosec or Protonix, GI therefore recommending Zantac 150 mg twice a day. Outpatient follow-up with GI for potential endoscopy recommended. Patient also advised to follow up with ENT regarding tracheostomy-states has an extra one at home, last changed May 2016. Currently receiving potassium supplements with recheck pending.Cleared by GI for discharge. Patient is being discharged home in a stable condition with guarded prognosis, once potassium WNL. EXAMINATION: GENERAL:alert and oriented x3, not in any acute distress. HEENT: Pupils are round and equally reacting to light. EOMI. No scleral icterus. No conjunctival pallor. Normocephalic, atraumatic. No pharyngeal erythema. No thyromegaly. Ostomy in place no thick discharge from the tracheostomy CARDIOVASCULAR: S1 and S2 present. No murmurs, rubs, or gallops. PULMONARY: Chest is clear to auscultation, no wheezing or crackles. ABDOMEN: Soft, nontender, nondistended, normoactive bowel sounds. No palpable organomegaly. PEG tube site is not infected MUSCULOSKELETAL: No joint swelling or deformity. EXTREMITIES: No cyanosis, clubbing, or pedal edema. NEUROLOGICAL: Gross neurological examination did not reveal any focal deficits. SKIN: No rashes. The impression and plan of care has been dictated as directed. : I performed a history and examination of this patient, discussed the same with the dictator. I agree with the dictator's note ,documented as a scribe. Any additional findings or plans will be noted. Time taken: 35 minutes Patient Condition at Discharge: Stable Plan - Discharge Summary Discharge Rx Participant: Yes New Discharge Prescriptions: Continue LORazepam [Ativan] 2 mg PEG/G-TUBE DAILY PRN PRN Reason: Anxiety HYDROcodone/APAP 7.5-325MG [[place] 7.5-325] 1 tab PEG/G-TUBE Q6HR PRN PRN Reason: Pain Chlorhexidine Gluconate [Periogard] 15 ml PO DAILY Baclofen [Lioresal] 10 mg PEG/G-TUBE HS Valproic Acid Oral Soln [Depakene Syrup] 10 ml PEG/G-TUBE Q8H Amitriptyline HCl 50 mg PEG/G-TUBE HS QUEtiapine [SEROquel] 50 mg PEG/G-TUBE HS PRN PRN Reason: Anxiety Gabapentin 250mg/5ml 500 mg PEG/G-TUBE Q8H Ipratropium-Albuterol Nebulize [Duoneb 0.5 mg-3 mg/3 ml Soln] 3 ml INHALATION RT-QID PRN PRN Reason: Shortness Of Breath Lansoprazole 3mg/Ml 30 mg PEG/G-TUBE DAILY Melatonin 3 mg PEG/G-TUBE HS Metoprolol Tartrate [Lopressor] 25 mg PEG/G-TUBE BID Nicotine 21Mg/24Hr Patch [Habitrol] 1 patch TRANSDERM DAILY No Action Prochlorperazine [Compazine] 10 mg PEG/G-TUBE Q6HR PRN PRN Reason: Nausea Discharge Medication List Baclofen [Lioresal] 10 mg PEG/G-TUBE HS 07/18/17 [History] Chlorhexidine Gluconate [Periogard] 15 ml PO DAILY 07/18/17 [History] HYDROcodone/APAP 7.5-325MG [[place] 7.5-325] 1 tab PEG/G-TUBE Q6HR PRN 07/18/17 [ History] LORazepam [Ativan] 2 mg PEG/G-TUBE DAILY PRN 07/18/17 [History] Valproic Acid Oral Soln [Depakene Syrup] 10 ml PEG/G-TUBE Q8H 07/18/17 [History] Amitriptyline HCl 50 mg PEG/G-TUBE HS 04/10/18 [History] QUEtiapine [SEROquel] 50 mg PEG/G-TUBE HS PRN 04/10/18 [History] Gabapentin 250mg/5ml 500 mg PEG/G-TUBE Q8H 06/25/18 [History] Ipratropium-Albuterol Nebulize [Duoneb 0.5 mg-3 mg/3 ml Soln] 3 ml INHALATION RT -QID PRN 06/25/18 [History] Lansoprazole 3mg/Ml 30 mg PEG/G-TUBE DAILY 06/25/18 [History] Melatonin 3 mg PEG/G-TUBE HS 06/25/18 [History] Metoprolol Tartrate [Lopressor] 25 mg PEG/G-TUBE BID 06/25/18 [History] Nicotine 21Mg/24Hr Patch [Habitrol] 1 patch TRANSDERM DAILY 06/25/18 [History] Prochlorperazine [Compazine] 10 mg PEG/G-TUBE Q6HR PRN 09/17/18 [History] Follow up Appointment(s)/Referral(s): Alina Campos MD [Primary Care Provider] - 09/26/18 10:20 am Jorge Padron MD [STAFF PHYSICIAN] - 1 Week (please schedule prior to dc office closed please call back to make appointment) Jsoe Huynh MD [STAFF PHYSICIAN] - 2 Weeks Ambulatory/Diagnostic Orders: Complete Blood Count w/diff [LAB.AMB] Time Frame: 3 Days, Location: None Selected Patient Instructions/Handouts: Gastritis ([facility]) Activity/Diet/Wound Care/Special Instructions: Dc after Potassium supplemented , rechecked Discharge Disposition: HOME SELF-CARE
== END 2018-09-17 16:20 | disposition home or self-care (01) | DRG 379 ==
LOC: EC 11:54 → 4SSUR 19:39 → OBSVTOIN 23:07
PROVIDERS: ADMIT Internal Medicine; ATTEND Internal Medicine
DX: K29.71 Gastritis, unspecified, with bleeding (principal); E87.6 Hypokalemia; F17.219 Nicotine dependence, cigarettes, with unspecified nicotine-induced disorders; F32.9 Major depressive disorder, single episode, unspecified; F41.9 Anxiety disorder, unspecified; G40.909 Epilepsy, unspecified, not intractable, without status epilepticus; I25.2 Old myocardial infarction; J44.9 Chronic obstructive pulmonary disease, unspecified; K21.0 Gastro-esophageal reflux disease with esophagitis; Z93.0 Tracheostomy status; Z93.1 Gastrostomy status; Z85.819 Personal history of malignant neoplasm of unspecified site of lip, oral cavity, and pharynx; Z79.891 Long term (current) use of opiate analgesic; Z79.899 Other long term (current) drug therapy
CPT/HCPCS: 36415; 71046; 71260; 74018; 74177; 80048; 80053; 81003; 82150; 82550; 82553; 83605; 83690; 83735; 84100; 84484; 85025; 85027; 86850; 86900; 86901; 94640

== ENCOUNTER 2018-10-28 22:34 | Emergency (ER) | payer MEDICAID, OTHER ==
[2018-10-28 22:44] VITALS: BP 88/55; PULSE 110; RESP 18; TEMP 98
--- NOTE | 2018-10-28 23:18 | ED ---
General Adult HPI - General Chief complaint: Recheck/Abnormal Lab/Rx Stated complaint: PICC Tube Displaced Time Seen by Provider: 10/28/18 23:08 Source: patient Mode of arrival: wheelchair Limitations: language barrier - History of Present Illness Initial comments: Dictation was produced using [employer] dictation software. please excuse any grammatical, word or spelling errors. Chief Complaint: 58-year-old male presents after PEG tube displacement. History of Present Illness: Patient is a 58-year-old male with multiple co morbidities. Patient states his dog jumped on him at home. Patient does require tube feedings. Patient has PEG tube and tracheostomy secondary to oral cancer. Patient states the surgery for his PEG tube placement was approximately 2 years ago. He did have a larger tube placed sometime in the end of last year. He does report that there is a little bit of leaking yesterday. The ROS documented in this emergency department record has been reviewed and confirmed by me. Those systems with pertinent positive or negative responses have been documented in the HPI. All other systems are other negative and/or noncontributory. PHYSICAL EXAM: General Impression: Alert and oriented x3, not in acute distress HEENT: Normocephalic atraumatic, extra-ocular movements intact, pupils equal and reactive to light bilaterally, mucous membranes moist, tracheostomy Cardiovascular: Heart regular rate and rhythm, S1&S2 audible, no murmurs, rubs or gallops Chest: Lungs clear to auscultation bilaterally, no rhonchi, no wheeze, no rales Abdomen: Bowel sounds present, abdomen soft, non-tender, non-distended, no organomegaly, PEG tube site clean dry and intact. Musculoskeletal: Pulses present and equal in all extremities, no peripheral edema Motor: Power 5/5 bilaterally, no focal deficits noted Neurological: CN II-XII grossly intact, no focal motor or sensory deficits noted Skin: Intact with no visualized rashes Psych: Normal affect and mood ED course: 58-year-old male presents after PEG tube displacement. Surgery was performed several months ago. Vital signs upon arrival are within acceptable limits. PEG tube was evaluated at bedside and set block bag. It appears that the pressure cuff ruptured. 18-[place] PEG tube was always available in our hospital. That was replaced. PEG tube gram ordered. PEG tube placement was confirmed on x-ray using contrast. Patient clear for discharge. Told to follow up with primary surgeon for possible upsizing of PEG tube. - Related Data Home Medications Medication Instructions Recorded Confirmed Baclofen [Lioresal] 10 mg PEG/G-TUBE HS 07/18/17 09/17/18 Chlorhexidine Gluconate [Periogard] 15 ml PO DAILY 07/18/17 09/17/18 HYDROcodone/APAP 7.5-325MG [[place] 1 tab PEG/G-TUBE Q6HR PRN 07/18/17 09/17/18 7.5-325] LORazepam [Ativan] 2 mg PEG/G-TUBE DAILY PRN 07/18/17 09/17/18 Valproic Acid Oral Soln [Depakene 10 ml PEG/G-TUBE Q8H 07/18/17 09/17/18 Syrup] Amitriptyline HCl 50 mg PEG/G-TUBE HS 04/10/18 09/17/18 QUEtiapine [SEROquel] 50 mg PEG/G-TUBE HS PRN 04/10/18 09/17/18 Gabapentin 250mg/5ml 500 mg PEG/G-TUBE Q8H 06/25/18 09/17/18 Ipratropium-Albuterol Nebulize 3 ml INHALATION RT-QID PRN 06/25/18 09/17/18 [Duoneb 0.5 mg-3 mg/3 ml Soln] Lansoprazole 3mg/Ml 30 mg PEG/G-TUBE DAILY 06/25/18 09/17/18 Melatonin 3 mg PEG/G-TUBE HS 06/25/18 09/17/18 Metoprolol Tartrate [Lopressor] 25 mg PEG/G-TUBE BID 06/25/18 09/17/18 Nicotine 21Mg/24Hr Patch [Habitrol] 1 patch TRANSDERM DAILY 06/25/18 09/17/18 Prochlorperazine [Compazine] 10 mg PEG/G-TUBE Q6HR PRN 09/17/18 09/17/18 Allergies Allergy/AdvReac Type Severity Reaction Status Date / Time No Known Allergies Allergy Verified 10/28/18 22:44 Review of Systems ROS Statement: Those systems with pertinent positive or pertinent negative responses have been documented in the HPI. ROS Other: All systems not noted in ROS Statement are negative. Past Medical History Past Medical History: Cancer, COPD, GERD/Reflux, Myocardial Infarction ([place]), Seizure Disorder Additional Past Medical History / Comment(s): low blood pressure, oral cancer-2014, "everything through peg tube"-nothing oral(will go to his lungs per pt) all liquid food, current fx rt tibia February 2018- has cast on Last Myocardial Infarction Date:: 2014 History of Any Multi-Drug Resistant Organisms: None Reported Past Surgical History: Heart Catheterization Additional Past Surgical History / Comment(s): trachestomy, oral surgery for cancer removal, Past Anesthesia/Blood Transfusion Reactions: No Reported Reaction Additional Past Anesthesia/Blood Transfusion Reaction / Comment(s): adopted - no family hx Past Psychological History: Anxiety, Depression Smoking Status: Current every day smoker Past Alcohol Use History: Occasional Past Drug Use History: None Reported - Past Family History Mother Family Medical History: Unable to Obtain Additional Family Medical History / Comment(s): pt is adopted General Exam Limitations: language barrier Course Vital Signs 10/28/18 22:37 Temperature 98.0 F Pulse Rate 110 H Respiratory 18 Rate Blood Pressure 88/55 O2 Sat by Pulse 96 Oximetry Disposition Clinical Impression: PEG tube malfunction Disposition: HOME SELF-CARE Condition: Good Is patient prescribed a controlled substance at d/c from ED?: No Referrals: Alina Campos MD [Primary Care Provider] - 1-2 days Time of Disposition: 00:03
--- NOTE | 2018-10-29 00:18 | XR ---
EXAM: XR Abdomen CLINICAL HISTORY: peg tube check TECHNIQUE: Frontal view of the abdomen COMPARISON: 09/15/18 FINDINGS: Contrast injected through percutaneous gastrostomy tube demonstrates opacification of the stomach compatible with intraluminal placement. Portions of the abdomen not imaged. Visualized portions demonstrate non- obstructive bowel gas pattern. Left rib fractures with some callus formation at fracture sites. IMPRESSION: Contrast injected through percutaneous gastrostomy tube demonstrates opacification of the stomach compatible with intraluminal placement.
== END 2018-10-29 00:16 | disposition home or self-care (01) ==
LOC: EC 22:34
DX: K94.23 Gastrostomy malfunction (principal); J44.9 Chronic obstructive pulmonary disease, unspecified; K21.9 Gastro-esophageal reflux disease without esophagitis; I25.2 Old myocardial infarction; G40.909 Epilepsy, unspecified, not intractable, without status epilepticus; F41.9 Anxiety disorder, unspecified; F32.9 Major depressive disorder, single episode, unspecified; F17.200 Nicotine dependence, unspecified, uncomplicated; Z85.819 Personal history of malignant neoplasm of unspecified site of lip, oral cavity, and pharynx; Z95.818 Presence of other cardiac implants and grafts; Z79.899 Other long term (current) drug therapy
CPT/HCPCS: 74018; 99283; 43762; Q9967

== ENCOUNTER 2018-10-30 06:37 | Emergency (ER) | payer MEDICAID, OTHER ==
[2018-10-30 06:48] VITALS: RESP 20
[2018-10-30 07:58] VITALS: PULSE 110
--- NOTE | 2018-10-30 07:58 | ED ---
General Adult HPI - General Chief complaint: Recheck/Abnormal Lab/Rx Stated complaint: Peg Tube came out Time Seen by Provider: 10/30/18 07:08 Source: patient, family, RN notes reviewed Mode of arrival: ambulatory Limitations: no limitations - History of Present Illness Initial comments: 58-year-old male presents emergency Department with chief complaint of PEG tube dislodgment. Patient states that he had a placed yesterday but does not believe that was fully inflated. Patient states that he woke up but states now after he noticed that his PEG tube was out. Patient states he's had this done several months ago. Patient denies any abdominal pain fever chills vomiting. Patient denies any other complaints at this time. - Related Data Home Medications Medication Instructions Recorded Confirmed Baclofen [Lioresal] 10 mg PEG/G-TUBE HS 07/18/17 09/17/18 Chlorhexidine Gluconate [Periogard] 15 ml PO DAILY 07/18/17 09/17/18 HYDROcodone/APAP 7.5-325MG [[place] 1 tab PEG/G-TUBE Q6HR PRN 07/18/17 09/17/18 7.5-325] LORazepam [Ativan] 2 mg PEG/G-TUBE DAILY PRN 07/18/17 09/17/18 Valproic Acid Oral Soln [Depakene 10 ml PEG/G-TUBE Q8H 07/18/17 09/17/18 Syrup] Amitriptyline HCl 50 mg PEG/G-TUBE HS 04/10/18 09/17/18 QUEtiapine [SEROquel] 50 mg PEG/G-TUBE HS PRN 04/10/18 09/17/18 Gabapentin 250mg/5ml 500 mg PEG/G-TUBE Q8H 06/25/18 09/17/18 Ipratropium-Albuterol Nebulize 3 ml INHALATION RT-QID PRN 06/25/18 09/17/18 [Duoneb 0.5 mg-3 mg/3 ml Soln] Lansoprazole 3mg/Ml 30 mg PEG/G-TUBE DAILY 06/25/18 09/17/18 Melatonin 3 mg PEG/G-TUBE HS 06/25/18 09/17/18 Metoprolol Tartrate [Lopressor] 25 mg PEG/G-TUBE BID 06/25/18 09/17/18 Nicotine 21Mg/24Hr Patch [Habitrol] 1 patch TRANSDERM DAILY 06/25/18 09/17/18 Prochlorperazine [Compazine] 10 mg PEG/G-TUBE Q6HR PRN 09/17/18 09/17/18 Allergies Allergy/AdvReac Type Severity Reaction Status Date / Time No Known Allergies Allergy Verified 10/30/18 06:48 Review of Systems ROS Statement: Those systems with pertinent positive or pertinent negative responses have been documented in the HPI. ROS Other: All systems not noted in ROS Statement are negative. Past Medical History Past Medical History: Cancer, COPD, GERD/Reflux, Myocardial Infarction ([place]), Seizure Disorder Additional Past Medical History / Comment(s): low blood pressure, oral cancer- 2014, "everything through peg tube"-nothing oral(will go to his lungs per pt) all liquid food, current fx rt tibia February 2018- has cast on Last Myocardial Infarction Date:: 2014 History of Any Multi-Drug Resistant Organisms: None Reported Past Surgical History: Heart Catheterization Additional Past Surgical History / Comment(s): trachestomy, oral surgery for cancer removal, Past Anesthesia/Blood Transfusion Reactions: No Reported Reaction Additional Past Anesthesia/Blood Transfusion Reaction / Comment(s): adopted - no family hx Past Psychological History: Anxiety, Depression Smoking Status: Current every day smoker Past Alcohol Use History: Occasional Past Drug Use History: None Reported - Past Family History Mother Family Medical History: Unable to Obtain Additional Family Medical History / Comment(s): pt is adopted General Exam Limitations: no limitations General appearance: alert, in no apparent distress Head exam: Present: atraumatic, normocephalic, normal inspection Respiratory exam: Present: normal lung sounds bilaterally. Absent: respiratory distress, wheezes, rales, rhonchi, stridor Cardiovascular Exam: Present: normal rhythm, tachycardia, normal heart sounds. Absent: systolic murmur, diastolic murmur, rubs, gallop, clicks GI/Abdominal exam: Present: soft, normal bowel sounds, other (Opening for PEG tube noted no bleeding no purulent drainage). Absent: distended, tenderness, guarding, rebound, rigid Back exam: Absent: CVA tenderness (R), CVA tenderness (L) Skin exam: Present: warm, dry, intact, normal color. Absent: rash Course Vital Signs 10/30/18 10/30/18 06:42 07:56 Pulse Rate 119 H 110 H Respiratory 20 20 Rate Blood Pressure 110/69 113/77 O2 Sat by Pulse 95 97 Oximetry Procedures - Feeding Tube Replacement Reason for Replacement: fell out Initial Tube Inserted: greater than 2 weeks Type of Tube: gastrostomy Insertion Site Prior to Procedure: clean Tube Used for Reinsertion: patient's own [place] Tube Size (F): 18 Balloon Size (mls): 10 Verification of Placement: KUB Tube Secured by: tape/dressing Patient Tolerated Procedure: well, no complications Medical Decision Making - Medical Decision Making 58-year-old male presented to emergency department for PEG tube dislodgment. This was replaced, x-ray obtained shows appropriate placement patient will be discharged. Disposition Clinical Impression: PEG tube malfunction Disposition: HOME SELF-CARE Condition: Stable Instructions (If sedation given, give patient instructions): Percutaneous Endoscopic Gastrostomy (ED) Additional Instructions: Please return to the Emergency Department if symptoms worsen or any other concerns. Is patient prescribed a controlled substance at d/c from ED?: No Referrals: Alina Campos MD [Primary Care Provider] - 1-2 days Time of Disposition: 08:36
--- NOTE | 2018-10-30 08:21 | XR ---
EXAMINATION TYPE: XR KUB DATE OF EXAM: 10/30/2018 COMPARISON: NONE HISTORY: PEG tube placement. TECHNIQUE: Left upper quadrant KUB was obtained following injection of Isovue for PEG tube placement. peg tube placement 20 ml isovue 370 injected FINDINGS: PEG tube is noted to be in place. Contrast is identified within the stomach. No extraluminal contrast is identified. Contrast is seen within the colon from prior CT. IMPRESSION: 1. Appropriate placement of the PEG tube
[2018-10-30 09:08] VITALS: BP 126/90; TEMP 97
== END 2018-10-30 09:08 | disposition home or self-care (01) ==
LOC: EC 06:37
DX: K94.23 Gastrostomy malfunction (principal); J44.9 Chronic obstructive pulmonary disease, unspecified; I25.2 Old myocardial infarction; K21.9 Gastro-esophageal reflux disease without esophagitis; G40.909 Epilepsy, unspecified, not intractable, without status epilepticus; F41.9 Anxiety disorder, unspecified; F32.9 Major depressive disorder, single episode, unspecified; F17.200 Nicotine dependence, unspecified, uncomplicated; Z87.81 Personal history of (healed) traumatic fracture; Z85.819 Personal history of malignant neoplasm of unspecified site of lip, oral cavity, and pharynx; Z98.890 Other specified postprocedural states; Z79.899 Other long term (current) drug therapy
CPT/HCPCS: 74018; 99283; 43762; Q9967

== ENCOUNTER 2018-10-30 13:24 | Emergency (ER) | payer MEDICAID, OTHER ==
[2018-10-30 13:31] VITALS: TEMP 98.2
--- NOTE | 2018-10-30 14:57 | ED ---
General Adult HPI - General Chief complaint: Alcohol Stated complaint: Altered mental status/ pt has been drinking Time Seen by Provider: 10/30/18 13:25 Source: patient, RN notes reviewed Mode of arrival: wheelchair Limitations: no limitations - History of Present Illness Initial comments: This a 58-year-old male who presents emergency Department because his states he drank beer. Patient's states he shouldn't be drinking because on pain medication. Recent is alert and oriented 4 a drinker. I asked him if he placed it into his PEG tube patient stated he did. states he's a little more sleepy but completely arousable. Patient has no complaints at this time. Patient denies headache patient denies shortness of breath or difficulty breathing. Patient denies chest pain. Patient denies abdominal pain patient denies nausea vomiting diarrhea. - Related Data Home Medications Medication Instructions Recorded Confirmed Baclofen [Lioresal] 10 mg PEG/G-TUBE HS 07/18/17 09/17/18 Chlorhexidine Gluconate [Periogard] 15 ml PO DAILY 07/18/17 09/17/18 HYDROcodone/APAP 7.5-325MG [[place] 1 tab PEG/G-TUBE Q6HR PRN 07/18/17 09/17/18 7.5-325] LORazepam [Ativan] 2 mg PEG/G-TUBE DAILY PRN 07/18/17 09/17/18 Valproic Acid Oral Soln [Depakene 10 ml PEG/G-TUBE Q8H 07/18/17 09/17/18 Syrup] Amitriptyline HCl 50 mg PEG/G-TUBE HS 04/10/18 09/17/18 QUEtiapine [SEROquel] 50 mg PEG/G-TUBE HS PRN 04/10/18 09/17/18 Gabapentin 250mg/5ml 500 mg PEG/G-TUBE Q8H 06/25/18 09/17/18 Ipratropium-Albuterol Nebulize 3 ml INHALATION RT-QID PRN 06/25/18 09/17/18 [Duoneb 0.5 mg-3 mg/3 ml Soln] Lansoprazole 3mg/Ml 30 mg PEG/G-TUBE DAILY 06/25/18 09/17/18 Melatonin 3 mg PEG/G-TUBE HS 06/25/18 09/17/18 Metoprolol Tartrate [Lopressor] 25 mg PEG/G-TUBE BID 06/25/18 09/17/18 Nicotine 21Mg/24Hr Patch [Habitrol] 1 patch TRANSDERM DAILY 06/25/18 09/17/18 Prochlorperazine [Compazine] 10 mg PEG/G-TUBE Q6HR PRN 09/17/18 09/17/18 Allergies Allergy/AdvReac Type Severity Reaction Status Date / Time No Known Allergies Allergy Verified 10/30/18 06:48 Review of Systems ROS Statement: Those systems with pertinent positive or pertinent negative responses have been documented in the HPI. ROS Other: All systems not noted in ROS Statement are negative. Past Medical History Past Medical History: Cancer, COPD, GERD/Reflux, Myocardial Infarction ([place]), Seizure Disorder Additional Past Medical History / Comment(s): low blood pressure, oral cancer- 2014, "everything through peg tube"-nothing oral(will go to his lungs per pt) all liquid food, current fx rt tibia February 2018- has cast on Last Myocardial Infarction Date:: 2014 History of Any Multi-Drug Resistant Organisms: None Reported Past Surgical History: Heart Catheterization Additional Past Surgical History / Comment(s): trachestomy, oral surgery for cancer removal, Past Anesthesia/Blood Transfusion Reactions: No Reported Reaction Additional Past Anesthesia/Blood Transfusion Reaction / Comment(s): adopted - no family hx Past Psychological History: Anxiety, Depression Smoking Status: Current every day smoker Past Alcohol Use History: Daily, Heavy Past Drug Use History: None Reported - Past Family History Mother Family Medical History: Unable to Obtain Additional Family Medical History / Comment(s): pt is adopted General Exam - General Exam Comments Initial Comments: GENERAL: Patient is well-developed and well-nourished. Patient is nontoxic and well- hydrated and is in no acute distress. ENT: Neck is soft and supple. No significant lymphadenopathy is noted. Oropharynx is clear. Moist mucous membranes. Neck has full range of motion without eliciting any pain. EYES: The sclera were anicteric and conjunctiva were pink and moist. Extraocular movements were intact and pupils were equal round and reactive to light. Eyelids were unremarkable. PULMONARY: Unlabored respirations. Good breath sounds bilaterally. No audible rales rhonchi or wheezing was noted. CARDIOVASCULAR: There is a regular rate and rhythm without any murmurs gallops or rubs. ABDOMEN: Soft and nontender with normal bowel sounds. No palpable organomegaly was noted. There is no palpable pulsatile mass. SKIN: Skin is clear with no lesions or rashes and otherwise unremarkable. NEUROLOGIC: Patient is alert and oriented x3. Cranial nerves II through XII are grossly intact. MUSCULOSKELETAL: Normal extremities with adequate strength and full range of motion. LYMPHATICS: No significant lymphadenopathy is noted PSYCHIATRIC: Normal psychiatric evaluation. Limitations: no limitations Course Vital Signs 10/30/18 10/30/18 13:27 15:21 Temperature 98.2 F Pulse Rate 94 99 Respiratory 18 16 Rate Blood Pressure 160/91 95/67 O2 Sat by Pulse 99 95 Oximetry Disposition Clinical Impression: Alcoholic intoxication Disposition: HOME SELF-CARE Condition: Good Instructions (If sedation given, give patient instructions): Alcohol Intoxication (ED) Additional Instructions: Patient needs to avoid drinking. Is patient prescribed a controlled substance at d/c from ED?: No Referrals: Alina Campos MD [Primary Care Provider] - 1-2 days Time of Disposition: 14:57
[2018-10-30 15:23] VITALS: BP 95/67; PULSE 99; RESP 16
== END 2018-10-30 15:21 | disposition home or self-care (01) ==
LOC: EC 13:24
DX: F10.129 Alcohol abuse with intoxication, unspecified (principal); K21.9 Gastro-esophageal reflux disease without esophagitis; G40.909 Epilepsy, unspecified, not intractable, without status epilepticus; I25.2 Old myocardial infarction; F32.9 Major depressive disorder, single episode, unspecified; F41.9 Anxiety disorder, unspecified; F17.200 Nicotine dependence, unspecified, uncomplicated; Z79.899 Other long term (current) drug therapy; Z85.819 Personal history of malignant neoplasm of unspecified site of lip, oral cavity, and pharynx; Z98.890 Other specified postprocedural states; Z93.0 Tracheostomy status; Z93.1 Gastrostomy status; Z95.818 Presence of other cardiac implants and grafts
CPT/HCPCS: 99283

== ENCOUNTER → 2019-05-15 | Outpatient (CLI) | payer MEDICAID, MEDICARE ==
--- NOTE | 2019-05-15 13:18 | FL ---
Modified barium swallow HISTORY: Pharyngoesophageal dysphagia 17 seconds fluoroscopy time, no intraoperative images Patient was evaluated in real-time in the lateral projection under fluoroscopy. [place] thin fluid was given to the patient. The exam was aborted immediately due to the findings in the oral phase by the speech pathologist. See findings from speech pathology.
== END | disposition home or self-care (01) ==
LOC: RADFLMAIN 11:10
DX: T17.908A Unspecified foreign body in respiratory tract, part unspecified causing other injury, initial encounter (principal); T66.XXXA Radiation sickness, unspecified, initial encounter; J39.2 Other diseases of pharynx; R13.14 Dysphagia, pharyngoesophageal phase
CPT/HCPCS: 74220

== ENCOUNTER 2019-08-16 16:06 | Emergency (ER) | payer MEDICAID, MEDICARE ==
[2019-08-16] MEDS ORDERED: SODIUM CHLORIDE 0.9% 500 ML 500 ML IV STA (16:40)
[2019-08-16 17:07] LABS: Basophils # (A) 0.1 k/uL (0-0.2); Basophils % (A) 1 %; Eosinophils # (A) 0.1 k/uL (0-0.7); Eosinophils % (A) 2 %; HCT 49.6 % (39.0-53.0); Lymphocytes # (A) 0.8 k/uL (1.0-4.8); Lymphocytes % (A) 10 %; MCH 33.7 pg (25.0-35.0); MCHC 34.3 g/dL (31.0-37.0); MCV 98.3 fL (80.0-100.0); Mean Platelet Volume 10.2; Monocytes # (A) 0.4 k/uL (0-1.0); Monocytes % (A) 5 %; Neutrophils # (A) 6.2 k/uL (1.3-7.7); Neutrophils % (A) 81 %; RBC 5.04 m/uL (4.30-5.90); RDW 11.7 % (11.5-15.5); WBC 7.7 k/uL (3.8-10.6)
[2019-08-16 17:08] LABS: Platelet Count 50 k/uL (150-450)
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
[2019-08-16 17:12] LABS: INR 0.9 (<1.2); Partial Thromboplastin Time 24.5 sec (22.0-30.0)
[2019-08-16 17:13] LABS: ALT 13 U/L (4-49); AST 33 U/L (17-59); African American GFR (CKD) >90 (>60 ml/min/1.73 sqM); Albumin 5.2 g/dL (3.5-5.0); Alcohol 58 mg/dL; Alkaline Phosphatase 88 U/L (38-126); Anion Gap 15 mmol/L; Blood Urea Nitrogen 8 mg/dL (9-20); Calcium 9.8 mg/dL (8.4-10.2); Carbon Dioxide 25 mmol/L (22-30); Chloride 90 mmol/L (98-107); Creatine Kinase 97 U/L (55-170); Glucose 87 mg/dL (74-99); Non-African American GFR(CKD) >90 (>60 ml/min/1.73 sqM); Sodium 130 mmol/L (137-145); Total Bilirubin 0.7 mg/dL (0.2-1.3); Total Protein 9.6 g/dL (6.3-8.2)
[2019-08-16 17:15] VITALS: RESP 20
[2019-08-16 17:21] LABS: Valproic Acid (Depakene) 123.3 ug/mL
[2019-08-16] MEDS ORDERED: SODIUM CHLORIDE 0.9% 1,000 ML IV ONE (17:28)
--- NOTE | 2019-08-16 17:28 | XR ---
EXAMINATION TYPE: XR chest 2V DATE OF EXAM: 08/16/2019 COMPARISON: 09/15/2018 HISTORY: Syncope TECHNIQUE: 3 views FINDINGS: Heart and mediastinum are normal. Lungs are clear. There is tracheostomy tube. There is no pleural effusion. Bony thorax is intact. There are chest leads. IMPRESSION: Normal chest. No change.
--- NOTE | 2019-08-16 17:45 | CT ---
EXAMINATION TYPE: CT brain alexine wo con DATE OF EXAM: 08/16/2019 COMPARISON: Cervical spine CT scan 09/14/2017 HISTORY: Found on ground, unresponsive CT DLP: 1070.9 mGycm Automated exposure control for dose reduction was used. There is mild cerebral atrophy. There is no mass effect nor midline shift. There is no sign of intrac ranial hemorrhage. Calvarium is intact. There is moderate spondylotic change in the lower cervical spine. There is anterior subluxation defor mity of C4 in relation to C5 of 5 mm. There is hypertrophic multilevel facet arthropathy. The skull b ase is intact. IMPRESSION: Mild cerebral atrophy. No acute intracranial abnormality. Spondylotic moderate changes in the cervical spine. Subluxation deformity at C4-5. No fracture. No ch ruddy compared to old exam.
--- NOTE | 2019-08-16 17:49 | CT ---
EXAMINATION TYPE: CT facial bones wo con DATE OF EXAM: 08/16/2019 COMPARISON: None HISTORY: Found on ground, unresponsive CT DLP: 1070.9 mGycm Automated exposure control for dose reduction was used. The mandibular ring is intact. Temporomandibular joints are intact. Zygomatic arches appear normal. N zo bone is intact. The orbital margins are intact. There is no evidence of retro-orbital mass. Ther e is mild mucosal thickening in the maxillary sinuses. There is bilateral patency of the ostiomeatal complex. There is mild mucosal thickening anterior ethmoid sinuses. Sphenoid sinus appears normal. Ma xilla is intact. I see no focal bone destruction. There is no evidence of a blowout fracture. IMPRESSION: Mild ethmoid and maxillary sinusitis. No fracture.
[2019-08-16 18:30] LABS: Appearance,Urine Clear (Clear); Bilirubin,Urine Negative (Negative); Blood,Urine Negative (Negative); Color,Urine Yellow; Glucose,Urine (UA) Negative (Negative); Ketones,Urine Negative (Negative); Leukocyte Esterase,Urine Negative (Negative); Nitrite,Urine Negative (Negative); Protein,Urine Negative (Negative); Specific Gravity,Urine 1.006 (1.001-1.035); Urobilinogen,Urine <2.0 mg/dL (<2.0)
[2019-08-16 18:56] VITALS: PULSE 82
--- NOTE | 2019-08-16 18:57 | XR ---
EXAMINATION TYPE: XR abdomen 1V DATE OF EXAM: 08/16/2019 COMPARISON: 10/30/2018 HISTORY: Check tube placement TECHNIQUE: Single view FINDINGS: Single view of the abdomen shows contrast injected into the PEG tube. There is contrast opacification of the stomach. I see no extravasation. IMPRESSION: PEG tube appears to be in good position and not changed compared to old exam.
[2019-08-16 19:06] VITALS: BP 128/88
== END 2019-08-16 19:16 | disposition home or self-care (01) ==
LOC: EC 16:06
DX: R41.89 Other symptoms and signs involving cognitive functions and awareness (principal); S09.93XA Unspecified injury of face, initial encounter; T42.6X1A Poisoning by other antiepileptic and sedative-hypnotic drugs, accidental (unintentional), initial encounter; K94.23 Gastrostomy malfunction; F10.99 Alcohol use, unspecified with unspecified alcohol-induced disorder; J44.9 Chronic obstructive pulmonary disease, unspecified; I25.2 Old myocardial infarction; F41.9 Anxiety disorder, unspecified; F32.9 Major depressive disorder, single episode, unspecified; G40.909 Epilepsy, unspecified, not intractable, without status epilepticus; F17.200 Nicotine dependence, unspecified, uncomplicated; Z95.5 Presence of coronary angioplasty implant and graft; Z85.818 Personal history of malignant neoplasm of other sites of lip, oral cavity, and pharynx; W19.XXXA Unspecified fall, initial encounter
CPT/HCPCS: 99284; 43762; 96360; 36415; 93005; 80164; 80053; 82550; 83605; 84484; 85025; 85610; 85730; 81003; 80320; 71046; 74018; 72125; 70486; 70450; Q9967

== ENCOUNTER → 2019-09-04 | Outpatient (CLI) | payer MEDICAID, MEDICARE ==
--- NOTE | 2019-09-04 08:52 | CT ---
EXAMINATION TYPE: CT neck chest w con DATE OF EXAM: 09/04/2019 7:57 AM COMPARISON: CT chest September 15, 2018. PET/CT May 21, 2016 HISTORY: Mouth cancer CT DLP: 1242 mGycm Automated exposure control for dose reduction was used. CONTRAST: CT scan of the neck is performed following with IV Contrast, patient injected with 100 mL of Isovue 3 00. Axial images are obtained, coronal and sagittal reformatted images are reviewed. FINDINGS: Neck: The airway remains patent. Some artifact from cavitary fillings demonstrated at level of mouth. There are numerous surgical clips in the right neck submandibular region. There is extension to the submandibular level. No new definitive greater than 1 cm nodularity. Tracheostomy tube is now present . Thyroid gland is heterogeneous but normal in size. Submandibular glands are surgically absent. Cachorro tional surgical clips left submandibular level noted axial image 35. Parotid glands are unremarkable. Moderate calcified plaque right carotid bulb. There is more severe mixed plaque left common carotid a rtery before bulb, significant stenosis cannot be excluded near image 45 for reference. Multilevel spondylolisthesis along with spurring and disc space narrowing mid to lower cervical spine . There is S shaped scoliosis on coronal images. Multilevel uncovertebral facet degenerative changes bilaterally. Chest: Sacral moderate underlying emphysematous change with [id number] bilateral lower lung par enchymal scarring. No new nodules or masses. No pleural effusion or pneumothorax. Fairly severe three-vessel coronary artery calcification and/or stents, correlate clinically. No card iomegaly or pericardial effusion. There is severe focal thickening of the esophagus mid to distal lev el beginning subcarinal region axial image 30 extending to nearly the level of diaphragmatic hiatus o n axial image 45. This has similar appearance to 2019 CT. There is stable subcentimeter right paraeso phageal lymph node near diaphragmatic hiatus image 50. Gastrostomy tube is partially imaged new from prior CT. Multilevel spurring and disc space narrowing throughout the thoracic spine most prominent l ower thoracic levels. Few calcifications throughout the spleen consistent with product of old granulo matous disease. No new greater than 1 cm thoracic adenopathy. Subtle mildly displaced upper sternal f racture sagittal image 62 presumed related to old trauma. IMPRESSION: 1. No suspicious recurrent mass or adenopathy to suggest neoplastic recurrence. 2. Persistent suspicious thickening of the mid to distal esophagus given one-year stability favors st ricture over neoplasm, correlate clinically.
== END | disposition home or self-care (01) ==
LOC: RADCTMAIN 07:02
PROVIDERS: ATTEND Internal Medicine Hematology & Oncology
DX: Z03.89 Encounter for observation for other suspected diseases and conditions ruled out (principal); C04.9 Malignant neoplasm of floor of mouth, unspecified
CPT/HCPCS: 70491; 71260; Q9967

== ENCOUNTER 2020-02-26 11:34 | Emergency (ER) | payer MEDICAID, MEDICARE | END 2020-02-26 15:40 | disposition home or self-care (01) | LOC: EC 11:34 | DX: K94.23 Gastrostomy malfunction (principal) | CPT/HCPCS: 99282 ==

== ENCOUNTER 2020-02-27 17:39 | Inpatient (IN) | payer MEDICAID, MEDICARE ==
--- NOTE | 2020-02-27 21:14 | ED ---
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 He states that he was in the emergency department yesterday as he did have some leaking around the PEG tube. He went to bed last night only to wake up this morning and find that his PEG tube was on the floor. States he last said it was in place around 10 PM. He has had the feeding tube for several years. Last it was replaced was approximately 7 months ago. Patient called Dr. Tesfaye who told him to follow up in office on Monday for replacement. Patient was concerned that this was a significant monitor to have the PEG tube out. He has a history of seizures and cannot take any food or medications by mouth. Patient is not taking his medications at today. Denies any abdominal pain. There are no alleviating, precipitating or modifying factors - Related Data Home Medications Medication Instructions Recorded Confirmed Baclofen [Lioresal] 10 mg PEG/G-TUBE TID 07/18/17 02/27/20 LORazepam [Ativan] 1 mg PEG/G-TUBE BID 07/18/17 02/27/20 Valproic Acid Oral Soln [Depakene 500 mg PEG/G-TUBE Q8H 07/18/17 02/27/20 Syrup] Amitriptyline HCl 50 mg PEG/G-TUBE HS 04/10/18 02/27/20 Aspirin EC [Ecotrin Low Dose] 81 mg PEG/G-TUBE DAILY 02/27/20 02/27/20 Gabapentin [Neurontin] 300 mg PEG/G-TUBE TID 02/28/20 02/28/20 Previous Rx's Medication Instructions Recorded Amoxicillin/Potassium Clav 1 tab PO Q12HR 5 Days #10 tab 03/01/20 [Augmentin 875-125 Tablet] Allergies Allergy/AdvReac Type Severity Reaction Status Date / Time No Known Allergies Allergy Verified 02/27/20 21:56 Review of Systems ROS Statement: Those systems with pertinent positive or pertinent negative responses have been documented in the HPI. ROS Other: All systems not noted in ROS Statement are negative. Past Medical History Past Medical History: Cancer, COPD, GERD/Reflux, Myocardial Infarction ([place]), Seizure Disorder Additional Past Medical History / Comment(s): low blood pressure, oral cancer- 2014, Last Myocardial Infarction Date:: 2014 History of Any Multi-Drug Resistant Organisms: None Reported Past Surgical History: Heart Catheterization Additional Past Surgical History / Comment(s): trachestomy, oral surgery for cancer removal, PEG tube Past Anesthesia/Blood Transfusion Reactions: No Reported Reaction Additional Past Anesthesia/Blood Transfusion Reaction / Comment(s): adopted - no family hx Past Psychological History: Anxiety, Depression Smoking Status: Current every day smoker Past Alcohol Use History: Daily, Heavy Past Drug Use History: None Reported - Past Family History Mother Family Medical History: Unable to Obtain Additional Family Medical History / Comment(s): pt is adopted General Exam Limitations: no limitations General appearance: alert, in no apparent distress Head exam: Present: atraumatic, normocephalic, normal inspection Eye exam: Present: normal appearance, PERRL, EOMI. Absent: scleral icterus, conjunctival injection, periorbital swelling ENT exam: Present: normal exam, mucous membranes moist Neck exam: Present: other (trach). Absent: tenderness, meningismus, lymphadenopathy Respiratory exam: Present: normal lung sounds bilaterally. Absent: respiratory distress, wheezes, rales, rhonchi, stridor Cardiovascular Exam: Present: regular rate, normal rhythm, normal heart sounds. Absent: systolic murmur, diastolic murmur, rubs, gallop, clicks GI/Abdominal exam: Present: soft, normal bowel sounds, other (peg tube hole over left side of abdomen. Unable to pass PEG tube). Absent: distended, tenderness, guarding, rebound, rigid Extremities exam: Present: normal inspection, full ROM, normal capillary refill. Absent: tenderness, pedal edema, joint swelling, calf tenderness Back exam: Present: normal inspection Neurological exam: Present: alert, oriented X3, CN II-XII intact Psychiatric exam: Present: normal affect, normal mood Skin exam: Present: warm, dry, intact, normal color. Absent: rash Course Vital Signs 02/27/20 02/27/20 02/27/20 17:53 21:07 22:17 Temperature 98.4 F 96.8 F L 98.1 F Pulse Rate 106 H 85 78 Respiratory 20 18 Rate Blood Pressure 95/64 98/71 99/61 O2 Sat by Pulse 96 95 100 Oximetry Medical Decision Making - Medical Decision Making Upon arrival the patient is placed into room 21. I do attempt to replace the patient's 18-Welsh PEG tube however I am unable to get it to see. I do have Dr. Garcia and Gama the PA attempts to place the PEG tube however they also are unsuccessful. Because of this I discussed the case with Dr. Serrano who stated that the patient should be made nothing by mouth for procedure tomorrow. He does request that the patient be admitted to medicine with Gen. surgery consult. The case is discussed with Cady from [facility] was requesting basic laboratory studies. I will order the patient's critical medications by IV. Patient was in agreement with this plan and he was transferred to the floor - Lab Data Result diagrams: 02/29/20 07:48 02/29/20 07:48 Lab Results 02/27/20 02/27/20 02/27/20 Range/Units 22:16 22:16 22:16 WBC 5.5 (3.8-10.6) k/uL RBC 4.17 L (4.30-5.90) m/uL Hgb 13.6 (13.0-17.5) gm/dL Hct 41.2 (39.0-53.0) % MCV 98.8 (80.0-100.0) fL MCH 32.6 (25.0-35.0) pg MCHC 33.0 (31.0-37.0) g/dL RDW 12.0 (11.5-15.5) % Plt Count 63 L (150-450) k/uL Neutrophils % 68 % Lymphocytes % 18 % Monocytes % 9 % Eosinophils % 2 % Basophils % 1 % Neutrophils # 3.7 (1.3-7.7) k/uL Lymphocytes # 1.0 (1.0-4.8) k/uL Monocytes # 0.5 (0-1.0) k/uL Eosinophils # 0.1 (0-0.7) k/uL Basophils # 0.0 (0-0.2) k/uL Sodium 131 L (137-145) mmol/L Potassium 4.1 (3.5-5.1) mmol/L Chloride 97 L (98-107) mmol/L Carbon Dioxide 24 (22-30) mmol/L Anion Gap 10 mmol/L BUN 11 (9-20) mg/dL Creatinine 0.57 L (0.66-1.25) mg/dL Est GFR (CKD-EPI)AfAm >90 (>60 ml/min/1.73 sqM) Est GFR (CKD-EPI)NonAf >90 (>60 ml/min/1.73 sqM) Glucose 76 (74-99) mg/dL POC Glucose (mg/dL) (75-99) mg/dL POC Glu Tie Tape Machine Operator ID Calcium 9.2 (8.4-10.2) mg/dL Total Bilirubin 0.8 (0.2-1.3) mg/dL AST 32 (17-59) U/L ALT 16 (4-49) U/L Alkaline Phosphatase 67 (38-126) U/L Total Protein 6.8 (6.3-8.2) g/dL Albumin 3.7 (3.5-5.0) g/dL Vancomycin Trough ug/mL Coronavirus (PCR) Not Detected (Not Detected) 02/28/20 02/28/20 02/28/20 Range/Units 07:02 07:35 10:29 WBC (3.8-10.6) k/uL RBC (4.30-5.90) m/uL Hgb (13.0-17.5) gm/dL Hct (39.0-53.0) % MCV (80.0-100.0) fL MCH (25.0-35.0) pg MCHC (31.0-37.0) g/dL RDW (11.5-15.5) % Plt Count (150-450) k/uL Neutrophils % % Lymphocytes % % Monocytes % % Eosinophils % % Basophils % % Neutrophils # (1.3-7.7) k/uL Lymphocytes # (1.0-4.8) k/uL Monocytes # (0-1.0) k/uL Eosinophils # (0-0.7) k/uL Basophils # (0-0.2) k/uL Sodium (137-145) mmol/L Potassium (3.5-5.1) mmol/L Chloride (98-107) mmol/L Carbon Dioxide (22-30) mmol/L Anion Gap mmol/L BUN (9-20) mg/dL Creatinine (0.66-1.25) mg/dL Est GFR (CKD-EPI)AfAm (>60 ml/min/1.73 sqM) Est GFR (CKD-EPI)NonAf (>60 ml/min/1.73 sqM) Glucose (74-99) mg/dL POC Glucose (mg/dL) 68 L 131 H 84 (75-99) mg/dL POC Glu Tie Tape Machine Operator ID Audrey, Yaquelin Perry, Raj Vicky, Raj Calcium (8.4-10.2) mg/dL Total Bilirubin (0.2-1.3) mg/dL AST (17-59) U/L ALT (4-49) U/L Alkaline Phosphatase (38-126) U/L Total Protein (6.3-8.2) g/dL Albumin (3.5-5.0) g/dL Vancomycin Trough ug/mL Coronavirus (PCR) (Not Detected) 02/28/20 02/28/20 02/29/20 Range/Units 17:14 20:04 06:51 WBC (3.8-10.6) k/uL RBC (4.30-5.90) m/uL Hgb (13.0-17.5) gm/dL Hct (39.0-53.0) % MCV (80.0-100.0) fL MCH (25.0-35.0) pg MCHC (31.0-37.0) g/dL RDW (11.5-15.5) % Plt Count (150-450) k/uL Neutrophils % % Lymphocytes % % Monocytes % % Eosinophils % % Basophils % % Neutrophils # (1.3-7.7) k/uL Lymphocytes # (1.0-4.8) k/uL Monocytes # (0-1.0) k/uL Eosinophils # (0-0.7) k/uL Basophils # (0-0.2) k/uL Sodium (137-145) mmol/L Potassium (3.5-5.1) mmol/L Chloride (98-107) mmol/L Carbon Dioxide (22-30) mmol/L Anion Gap mmol/L BUN (9-20) mg/dL Creatinine (0.66-1.25) mg/dL Est GFR (CKD-EPI)AfAm (>60 ml/min/1.73 sqM) Est GFR (CKD-EPI)NonAf (>60 ml/min/1.73 sqM) Glucose (74-99) mg/dL POC Glucose (mg/dL) 108 H 99 65 L (75-99) mg/dL POC Glu Tie Tape Machine Operator Yaquelin Sneed Shawna Marshall, Jennifer Calcium (8.4-10.2) mg/dL Total Bilirubin (0.2-1.3) mg/dL AST (17-59) U/L ALT (4-49) U/L Alkaline Phosphatase (38-126) U/L Total Protein (6.3-8.2) g/dL Albumin (3.5-5.0) g/dL Vancomycin Trough ug/mL Coronavirus (PCR) (Not Detected) 02/29/20 02/29/20 02/29/20 Range/Units 07:10 07:48 07:48 WBC 4.6 (3.8-10.6) k/uL RBC 3.70 L (4.30-5.90) m/uL Hgb 11.9 L (13.0-17.5) gm/dL Hct 37.6 L (39.0-53.0) % MCV 101.5 H (80.0-100.0) fL MCH 32.2 (25.0-35.0) pg MCHC 31.7 (31.0-37.0) g/dL RDW 12.2 (11.5-15.5) % Plt Count 53 L (150-450) k/uL Neutrophils % % Lymphocytes % % Monocytes % % Eosinophils % % Basophils % % Neutrophils # (1.3-7.7) k/uL Lymphocytes # (1.0-4.8) k/uL Monocytes # (0-1.0) k/uL Eosinophils # (0-0.7) k/uL Basophils # (0-0.2) k/uL Sodium 136 L (137-145) mmol/L Potassium 3.5 (3.5-5.1) mmol/L Chloride 104 (98-107) mmol/L Carbon Dioxide 29 (22-30) mmol/L Anion Gap 3 mmol/L BUN 6 L (9-20) mg/dL Creatinine 0.57 L (0.66-1.25) mg/dL Est GFR (CKD-EPI)AfAm >90 (>60 ml/min/1.73 sqM) Est GFR (CKD-EPI)NonAf >90 (>60 ml/min/1.73 sqM) Glucose 89 (74-99) mg/dL POC Glucose (mg/dL) 92 (75-99) mg/dL POC Glu Tie Tape Machine Operator ID Kailyn Orona Calcium 8.3 L (8.4-10.2) mg/dL Total Bilirubin (0.2-1.3) mg/dL AST (17-59) U/L ALT (4-49) U/L Alkaline Phosphatase (38-126) U/L Total Protein (6.3-8.2) g/dL Albumin (3.5-5.0) g/dL Vancomycin Trough ug/mL Coronavirus (PCR) (Not Detected) 02/29/20 02/29/20 Range/Units 11:18 13:01 WBC (3.8-10.6) k/uL RBC (4.30-5.90) m/uL Hgb (13.0-17.5) gm/dL Hct (39.0-53.0) % MCV (80.0-100.0) fL MCH (25.0-35.0) pg MCHC (31.0-37.0) g/dL RDW (11.5-15.5) % Plt Count (150-450) k/uL Neutrophils % % Lymphocytes % % Monocytes % % Eosinophils % % Basophils % % Neutrophils # (1.3-7.7) k/uL Lymphocytes # (1.0-4.8) k/uL Monocytes # (0-1.0) k/uL Eosinophils # (0-0.7) k/uL Basophils # (0-0.2) k/uL Sodium (137-145) mmol/L Potassium (3.5-5.1) mmol/L Chloride (98-107) mmol/L Carbon Dioxide (22-30) mmol/L Anion Gap mmol/L BUN (9-20) mg/dL Creatinine (0.66-1.25) mg/dL Est GFR (CKD-EPI)AfAm (>60 ml/min/1.73 sqM) Est GFR (CKD-EPI)NonAf (>60 ml/min/1.73 sqM) Glucose (74-99) mg/dL POC Glucose (mg/dL) 84 (75-99) mg/dL POC Glu Tie Tape Machine Operator ID Kailyn Orona Calcium (8.4-10.2) mg/dL Total Bilirubin (0.2-1.3) mg/dL AST (17-59) U/L ALT (4-49) U/L Alkaline Phosphatase (38-126) U/L Total Protein (6.3-8.2) g/dL Albumin (3.5-5.0) g/dL Vancomycin Trough 22.2 ug/mL Coronavirus (PCR) (Not Detected) Disposition Clinical Impression: PEG tube malfunction Disposition: ADMITTED IP TO THIS [facility] Condition: Stable Is patient prescribed a controlled substance at d/c from ED?: No Decision to Admit Reason: Admit from EC Decision Date: 02/27/20 Decision Time: 21:39
[2020-02-27] MEDS ORDERED: SODIUM CHLORIDE 0.9% 1,000 ML IV STA (21:33)
[2020-02-27] MEDS ORDERED: NALOXONE 0.4 MG/ML 1 ML VIAL IV PRN (21:39)
[2020-02-27 22:31] LABS: Basophils % (A) 1 %; Eosinophils # (A) 0.1 k/uL (0-0.7); Eosinophils % (A) 2 %; HCT 41.2 % (39.0-53.0); HGB 13.6 gm/dL (13.0-17.5); Lymphocytes % (A) 18 %; MCH 32.6 pg (25.0-35.0); MCV 98.8 fL (80.0-100.0); Monocytes # (A) 0.5 k/uL (0-1.0); Monocytes % (A) 9 %; Neutrophils # (A) 3.7 k/uL (1.3-7.7); Neutrophils % (A) 68 %; RBC 4.17 m/uL (4.30-5.90); WBC 5.5 k/uL (3.8-10.6)
[2020-02-27 22:40] LABS: ALT 16 U/L (4-49); AST 32 U/L (17-59); African American GFR (CKD) >90 (>60 ml/min/1.73 sqM); Albumin 3.7 g/dL (3.5-5.0); Alkaline Phosphatase 67 U/L (38-126); Anion Gap 10 mmol/L; Blood Urea Nitrogen 11 mg/dL (9-20); Calcium 9.2 mg/dL (8.4-10.2); Carbon Dioxide 24 mmol/L (22-30); Chloride 97 mmol/L (98-107); Glucose 76 mg/dL (74-99); Non-African American GFR(CKD) >90 (>60 ml/min/1.73 sqM); Potassium 4.1 mmol/L (3.5-5.1); Sodium 131 mmol/L (137-145); Total Bilirubin 0.8 mg/dL (0.2-1.3); Total Protein 6.8 g/dL (6.3-8.2)
[2020-02-27 23:15] LABS: Platelet Count 63 k/uL (150-450)
[2020-02-28] MEDS ORDERED: GABAPENTIN PEG/G-TUBE PRN (01:39)
[2020-02-28] MEDS ORDERED: LORazepam 1 MG TAB PEG/G-TUBE SCH (02:00)
[2020-02-28] MEDS ORDERED: VALPROIC ACID ORAL SOLN 250 MG/5 ML CUP PEG/G-TUBE SCH (02:00)
[2020-02-28] MEDS ORDERED: BACLOFEN 10 MG TAB PEG/G-TUBE SCH (02:00)
[2020-02-28] MEDS: VALPROATE SODIUM 500 MG in SODIUM CHLORIDE 0.9% 100 ML IVPB SCH ×3 (02:29→17:45)
[2020-02-28] MEDS: LORazepam 2 MG/ML INJ IV SCH ×3 (02:29→21:45)
[2020-02-28] MEDS ORDERED: DEXTROSE 50% SYRINGE 50 ML IVP ONE (07:04)
[2020-02-28 07:11] LABS: Glucose,Whole Blood 68 mg/dL (75-99)
[2020-02-28 07:37] LABS: Glucose,Whole Blood 131 mg/dL (75-99)
[2020-02-28] MEDS ORDERED: ASPIRIN 81 MG PEG/G-TUBE SCH (09:00)
[2020-02-28 10:46] LABS: Glucose,Whole Blood 84 mg/dL (75-99)
--- NOTE | 2020-02-28 12:25 | P.GSCN ---
History of Present Illness Consult date: 02/28/20 Reason for Consult: PEG tube malfunction History of present illness: 59-year-old male with history of oral cancer. Patient has a trach and a PEG tube placed in the past. It appears from the computer that the last time the PEG tube was changed was approximately 2 years ago. Apparently it fell out 2 nights ago. They were unable to advance a new tube into the stomach yesterday in the ER. For that reason we were consulted to proceed with endoscopic PEG tube placement. Patient not a good historian. Apparently he is not able to tolerate any food or liquids. Review of Systems The patient denies any acute changes in vision or hearing, no chest pain or shortness of breath, no dysuria or hematuria, no headache, no runny nose, no rectal bleeding or melena, no unexplained weight loss Past Medical History Past Medical History: Cancer, COPD, GERD/Reflux, Myocardial Infarction ([place]), Seizure Disorder Additional Past Medical History / Comment(s): low blood pressure, oral cancer- 2014, Last Myocardial Infarction Date:: 2014 History of Any Multi-Drug Resistant Organisms: None Reported Past Surgical History: Heart Catheterization Additional Past Surgical History / Comment(s): trachestomy, oral surgery for cancer removal, PEG tube Past Anesthesia/Blood Transfusion Reactions: No Reported Reaction Additional Past Anesthesia/Blood Transfusion Reaction / Comm: adopted - no family hx Past Psychological History: Anxiety, Depression Smoking Status: Current every day smoker Past Alcohol Use History: Daily, Heavy Past Drug Use History: None Reported - Past Family History Mother Family Medical History: Unable to Obtain Additional Family Medical History / Comment(s): pt is adopted Medications and Allergies Home Medications Medication Instructions Recorded Confirmed Type Baclofen [Lioresal] 10 mg PEG/G-TUBE TID 07/18/17 02/27/20 History LORazepam [Ativan] 1 mg PEG/G-TUBE BID 07/18/17 02/27/20 History Valproic Acid Oral Soln [Depakene 500 mg PEG/G-TUBE Q8H 07/18/17 02/27/20 History Syrup] Amitriptyline HCl 50 mg PEG/G-TUBE HS 04/10/18 02/27/20 History Aspirin EC [Ecotrin Low Dose] 81 mg PEG/G-TUBE DAILY 02/27/20 02/27/20 History Gabapentin [Neurontin] 300 mg PEG/G-TUBE TID 02/28/20 02/28/20 History Allergies Allergy/AdvReac Type Severity Reaction Status Date / Time No Known Allergies Allergy Verified 02/27/20 21:56 Surgical - Exam Vital Signs Temp Pulse Resp BP Pulse Ox 98.4 F 106 H 20 95/64 96 02/27/20 17:53 02/27/20 17:53 02/27/20 17:53 02/27/20 17:53 02/27/20 17:53 Physical exam: General: Well-developed, malnourished HEENT: Normocephalic, sclerae nonicteric, tracheostomy in place Abdomen: Nontender, nondistended, left upper quadrant defect from recent gastrostomy tube Extremities: No edema Neuro: Alert and oriented Results - Labs 02/27/20 22:16 02/27/20 22:16 Abnormal Lab Results - Last 24 Hours (Table) 02/27/20 02/27/20 02/28/20 Range/Units 22:16 22:16 07:02 RBC 4.17 L (4.30-5.90) m/uL Plt Count 63 L (150-450) k/uL Sodium 131 L (137-145) mmol/L Chloride 97 L (98-107) mmol/L Creatinine 0.57 L (0.66-1.25) mg/dL POC Glucose (mg/dL) 68 L (75-99) mg/dL 02/28/20 Range/Units 07:35 RBC (4.30-5.90) m/uL Plt Count (150-450) k/uL Sodium (137-145) mmol/L Chloride (98-107) mmol/L Creatinine (0.66-1.25) mg/dL POC Glucose (mg/dL) 131 H (75-99) mg/dL Diabetes panel 02/27/20 Range/Units 22:16 Sodium 131 L (137-145) mmol/L Potassium 4.1 (3.5-5.1) mmol/L Chloride 97 L (98-107) mmol/L Carbon Dioxide 24 (22-30) mmol/L BUN 11 (9-20) mg/dL Creatinine 0.57 L (0.66-1.25) mg/dL Glucose 76 (74-99) mg/dL Calcium 9.2 (8.4-10.2) mg/dL AST 32 (17-59) U/L ALT 16 (4-49) U/L Alkaline Phosphatase 67 (38-126) U/L Total Protein 6.8 (6.3-8.2) g/dL Albumin 3.7 (3.5-5.0) g/dL Calcium panel 02/27/20 Range/Units 22:16 Calcium 9.2 (8.4-10.2) mg/dL Albumin 3.7 (3.5-5.0) g/dL Pituitary panel 02/27/20 Range/Units 22:16 Sodium 131 L (137-145) mmol/L Potassium 4.1 (3.5-5.1) mmol/L Chloride 97 L (98-107) mmol/L Carbon Dioxide 24 (22-30) mmol/L BUN 11 (9-20) mg/dL Creatinine 0.57 L (0.66-1.25) mg/dL Glucose 76 (74-99) mg/dL Calcium 9.2 (8.4-10.2) mg/dL Adrenal panel 02/27/20 Range/Units 22:16 Sodium 131 L (137-145) mmol/L Potassium 4.1 (3.5-5.1) mmol/L Chloride 97 L (98-107) mmol/L Carbon Dioxide 24 (22-30) mmol/L BUN 11 (9-20) mg/dL Creatinine 0.57 L (0.66-1.25) mg/dL Glucose 76 (74-99) mg/dL Calcium 9.2 (8.4-10.2) mg/dL Total Bilirubin 0.8 (0.2-1.3) mg/dL AST 32 (17-59) U/L ALT 16 (4-49) U/L Alkaline Phosphatase 67 (38-126) U/L Total Protein 6.8 (6.3-8.2) g/dL Albumin 3.7 (3.5-5.0) g/dL Assessment and Plan (1) PEG tube malfunction Narrative/Plan: Will proceed with EGD and PEG tube placement today. Risks of bleeding, infection, perforation, catheter malfunction reviewed. He understands and wishes to proceed. Current Visit: Yes Status: Acute Code(s): K94.23 - GASTROSTOMY MALFUNCTION SNOMED Code(s): 605479217
[2020-02-28] MEDS ORDERED: VANCOMYCIN IV PER PHARMACY 1 EACH MISC MISCELLANE PRN (12:59)
[2020-02-28] MEDS: VANCOMYCIN 1,250 MG in SODIUM CHLORIDE 0.9% 250 ML IVPB SCH ×2 (13:58→21:46)
--- NOTE | 2020-02-28 14:42 | P.HPIM ---
History of Present Illness 53-year-old male has a dislodged PEG tube came in for PEG tube replacement. Patient has history of bone cancer patient is a prior tracheostomy and PEG tube. On examination patient has an ulcer in the right inferior aspect of the tr acheostomy which has foul-smelling and nontender.. Wound cultures were obtain from those areas patient was started on broad-spectrum antibiotics with infectious disease consult. Patient will undergo PEG tube replacement. Patient is on antiseizure medications which were switched to IV last PEG tube was replaced several months ago. Review of Systems REVIEW OF SYSTEMS: All other review of systems were reviewed and were negative patient also is a poor historian and doesn't give us much history. Past Medical History Past Medical History: Cancer, COPD, GERD/Reflux, Myocardial Infarction ([place]), Seizure Disorder Additional Past Medical History / Comment(s): low blood pressure, oral cancer- 2014, Last Myocardial Infarction Date:: 2014 History of Any Multi-Drug Resistant Organisms: None Reported Past Surgical History: Heart Catheterization Additional Past Surgical History / Comment(s): trachestomy, oral surgery for cancer removal, PEG tube Past Anesthesia/Blood Transfusion Reactions: No Reported Reaction Additional Past Anesthesia/Blood Transfusion Reaction / Comment(s): adopted - no family hx Past Psychological History: Anxiety, Depression Smoking Status: Current every day smoker Past Alcohol Use History: Daily, Heavy Past Drug Use History: None Reported - Past Family History Mother Family Medical History: Unable to Obtain Additional Family Medical History / Comment(s): pt is adopted Medications and Allergies Home Medications Medication Instructions Recorded Confirmed Type Baclofen [Lioresal] 10 mg PEG/G-TUBE TID 07/18/17 02/27/20 History LORazepam [Ativan] 1 mg PEG/G-TUBE BID 07/18/17 02/27/20 History Valproic Acid Oral Soln [Depakene 500 mg PEG/G-TUBE Q8H 07/18/17 02/27/20 History Syrup] Amitriptyline HCl 50 mg PEG/G-TUBE HS 04/10/18 02/27/20 History Aspirin EC [Ecotrin Low Dose] 81 mg PEG/G-TUBE DAILY 02/27/20 02/27/20 History Gabapentin [Neurontin] 300 mg PEG/G-TUBE TID 02/28/20 02/28/20 History Allergies Allergy/AdvReac Type Severity Reaction Status Date / Time No Known Allergies Allergy Verified 02/27/20 21:56 Physical Exam Vitals: Vital Signs Temp Pulse Pulse Resp BP BP Pulse Ox 02/28/20 07:10 18 02/28/20 07:00 98.9 F 107 H 18 121/86 95 02/27/20 23:13 97.6 F 74 18 104/74 96 02/27/20 22:17 98.1 F 78 18 99/61 100 02/27/20 21:07 96.8 F L 85 98/71 95 02/27/20 17:53 98.4 F 106 H 20 95/64 96 Intake and Output 02/27/20 02/28/20 02/28/20 22:59 06:59 14:59 Other: Weight 65.771 kg 65.771 kg 65.771 kg PHYSICAL EXAMINATION: GENERAL: The patient is alert and oriented x3, not in any acute distress. Thin built with significant muscle atrophy HEENT: Pupils are round and equally reacting to light. EOMI. No scleral icterus. No conjunctival pallor. Normocephalic, atraumatic. No pharyngeal erythema. No thyromegaly. CARDIOVASCULAR: S1 and S2 present. No murmurs, rubs, or gallops. PULMONARY: Chest is clear to auscultation, no wheezing or crackles. Tracheostomy site is foul-smelling has an ulcer in the inferior aspect of the tracheostomy 2. To be infected and foul-smelling discharge ABDOMEN: Soft, nontender, nondistended, normoactive bowel sounds. No palpable organomegaly. PEG site doesn't appear to be infected MUSCULOSKELETAL: No joint swelling or deformity. EXTREMITIES: No cyanosis, clubbing, or pedal edema. NEUROLOGICAL: Gross neurological examination did not reveal any focal deficits. SKIN: Ulcer as mentioned above The tracheostomy site Results CBC & Chem 7: 02/27/20 22:16 02/27/20 22:16 Labs: Abnormal Lab Results - Last 24 Hours (Table) 02/27/20 02/27/20 02/28/20 Range/Units 22:16 22:16 07:02 RBC 4.17 L (4.30-5.90) m/uL Plt Count 63 L (150-450) k/uL Sodium 131 L (137-145) mmol/L Chloride 97 L (98-107) mmol/L Creatinine 0.57 L (0.66-1.25) mg/dL POC Glucose (mg/dL) 68 L (75-99) mg/dL 02/28/20 Range/Units 07:35 RBC (4.30-5.90) m/uL Plt Count (150-450) k/uL Sodium (137-145) mmol/L Chloride (98-107) mmol/L Creatinine (0.66-1.25) mg/dL POC Glucose (mg/dL) 131 H (75-99) mg/dL Assessment and Plan Plan: -Displaced PEG tube: Which will be replaced today patient will be continued on IV antiseizure medications - infected ulcer and possible tracheobronchitis: Sputum cultures from the tracheostomy and will obtain as per as well as wound cultures will be obtained. Patient was started on vancomycin and Zosyn fixes disease will be consulted. -COPD without any acute exacerbation - seizure disorder -Gastroesophageal reflux disease Heparin due to prophylaxis with Lovenox
[2020-02-28] MEDS ORDERED: IV FLUID CONTINUATION 700 ML IV ONE (14:54)
[2020-02-28] MEDS ORDERED: LIDOCAINE 1% INJ 10MG/ML (20 ML MDV) ONE (14:54)
[2020-02-28] MEDS ORDERED: PROPOFOL 10 MG/ML 20 ML VIAL IV ONE (14:54)
--- NOTE | 2020-02-28 15:26 | P.PCN ---
Date of Procedure: 02/28/20 Procedure(s) Performed: Preoperative Dx: Malnutrition, PEG tube malfunction, dysphagia Postoperative Dx: Same Procedure: EGD with PEG tube replacement Anesthesia: Sedation Endoscopist: Dr. Serrano Specimens: None Endoscopic Procedure: The patient was on the endoscopy table in the left decubitus position. The Olympus gastroscope was inserted into the oropharynx and passed under direct visualization to the region of the third portion of the duodenum. From that point the scope was slowly withdrawn inspecting all surfaces carefully. There were no neoplastic inflammatory or polypoid lesions throughout the duodenum. The pylorus was widely patent. The stomach was carefully inspected. There was evidence of a previous tract anteriorly in the body of the stomach. Using the 20-Tamazight Ponsky non-balloon replacement catheter I was able to identify the tract which angled superiorly and laterally. I was able to pass the probe through the fistula into the stomach without difficulty. I then was able to pass the 20-Tamazight catheter into the stomach without resistance as well. The remainder of the examination including proximal stomach and esophagus appeared normal. The patient was then taken to the recovery room in stable condition per anesthesia guidelines. Recommendations: May utilize catheter. Discharge per medicine.
[2020-02-28] MEDS ORDERED: PIPERACILLIN-TAZOBACTAM 3.375 GM in SODIUM CHLORIDE 0.9% 100 ML IVPB SCH (16:00)
[2020-02-28] MEDS: AMPICILLIN-SULBACTAM 3 GM in SODIUM CHLORIDE 0.9% 100 ML IVPB SCH (17:01)
[2020-02-28 17:23] LABS: Glucose,Whole Blood 108 mg/dL (75-99)
[2020-02-28 20:06] LABS: Glucose,Whole Blood 99 mg/dL (75-99)
[2020-02-28] MEDS ORDERED: AMITRIPTYLINE HCL 50 MG TAB PEG/G-TUBE SCH (21:00)
[2020-02-29] MEDS: AMPICILLIN-SULBACTAM 3 GM in SODIUM CHLORIDE 0.9% 100 ML IVPB SCH ×5 (00:20→23:05)
--- NOTE | 2020-02-29 00:34 | P.CONS ---
History of Present Illness - Reason for Consult Consult date: 02/28/20 Trach site infection Requesting physician: Tyree Gutiérrez - Chief Complaint PEG tube fell out x 1 day - History of Present Illness Patient is a 59-year-old with a past medical history significant for oral cancer this patient who did have a PEG tube for feeding and did have a tracheostomy patient has been brought into the ER after apparently the patient PEG tube fell out the night before presentation to the hospital, patient PEG tube was last replaced about 2 years ago patient not sure how it came out the workup the morning the patient was on the floor patient denies having pain at the PEG tube site as having any fever or any chills patient was noticed to have more erythema on the right side of the neck area with concern for possible trach site cellulitis patient was treated on vancomycin and Zosyn and admitted to the hospital infectious disease was consulted for further management of antibiotic therapy. The patient has been afebrile and his white count has been normal patient complained of some dull aching pain into the area currently with no skin breakdown or drainage no vomiting or any diarrhea Review of Systems Positive point has been mentioned in the HPI rest of the systems are negative Past Medical History Past Medical History: Cancer, COPD, GERD/Reflux, Myocardial Infarction (NM), Seizure Disorder Additional Past Medical History / Comment(s): low blood pressure, oral cancer- 2014, Last Myocardial Infarction Date:: 2014 History of Any Multi-Drug Resistant Organisms: None Reported Past Surgical History: Heart Catheterization Additional Past Surgical History / Comment(s): trachestomy, oral surgery for cancer removal, PEG tube Past Anesthesia/Blood Transfusion Reactions: No Reported Reaction Additional Past Anesthesia/Blood Transfusion Reaction / Comm: adopted - no family hx Past Psychological History: Anxiety, Depression Smoking Status: Current every day smoker Past Alcohol Use History: Daily, Heavy Past Drug Use History: None Reported - Past Family History Mother Family Medical History: Unable to Obtain Additional Family Medical History / Comment(s): pt is adopted Medications and Allergies Home Medications Medication Instructions Recorded Confirmed Type Baclofen [Lioresal] 10 mg PEG/G-TUBE TID 07/18/17 02/27/20 History LORazepam [Ativan] 1 mg PEG/G-TUBE BID 07/18/17 02/27/20 History Valproic Acid Oral Soln [Depakene 500 mg PEG/G-TUBE Q8H 07/18/17 02/27/20 History Syrup] Amitriptyline HCl 50 mg PEG/G-TUBE HS 04/10/18 02/27/20 History Aspirin EC [Ecotrin Low Dose] 81 mg PEG/G-TUBE DAILY 02/27/20 02/27/20 History Gabapentin [Neurontin] 300 mg PEG/G-TUBE TID 02/28/20 02/28/20 History Allergies Allergy/AdvReac Type Severity Reaction Status Date / Time No Known Allergies Allergy Verified 02/27/20 21:56 Physical Exam Vitals: Vital Signs Temp Pulse Pulse Resp BP BP Pulse Ox 02/28/20 14:56 98 F 81 16 100/62 97 02/28/20 07:10 18 02/28/20 07:00 98.9 F 107 H 18 121/86 95 02/27/20 23:13 97.6 F 74 18 104/74 96 02/27/20 22:17 98.1 F 78 18 99/61 100 02/27/20 21:07 96.8 F L 85 98/71 95 02/27/20 17:53 98.4 F 106 H 20 95/64 96 Intake and Output 02/28/20 02/28/20 02/28/20 06:59 14:59 22:59 Intake Total 200 Balance 200 Intake: IV 200 Other: Weight 65.771 kg 65.771 kg GENERAL DESCRIPTION: Middle-aged male lying in bed, no distress. No tachypnea or accessory muscle of respiration use. HEENT: Shows Pallor , no scleral icterus. Oral mucous membrane is dry. NECK: Patient did have a tracheostomy with erythema on the right upper chest area LUNGS: Unlabored breathing. Clear to auscultation anteriorly. No wheeze or crackle. HEART: S1, S2, regular rate and rhythm. No loud murmur ABDOMEN: Soft, no tenderness , PEG tube site with no erythema or induration or any drainage EXTREMITIES: No edema of feet. SKIN: No rash, no masses palpable. NEUROLOGICAL: The patient is awake, alert, oriented x2, mood and affect normal. Results CBC & Chem 7: 02/27/20 22:16 02/27/20 22:16 Labs: Abnormal Lab Results - Last 24 Hours (Table) 02/27/20 02/27/20 02/28/20 Range/Units 22:16 22:16 07:02 RBC 4.17 L (4.30-5.90) m/uL Plt Count 63 L (150-450) k/uL Sodium 131 L (137-145) mmol/L Chloride 97 L (98-107) mmol/L Creatinine 0.57 L (0.66-1.25) mg/dL POC Glucose (mg/dL) 68 L (75-99) mg/dL 02/28/20 Range/Units 07:35 RBC (4.30-5.90) m/uL Plt Count (150-450) k/uL Sodium (137-145) mmol/L Chloride (98-107) mmol/L Creatinine (0.66-1.25) mg/dL POC Glucose (mg/dL) 131 H (75-99) mg/dL Assessment and Plan Assessment: 1- patient with neck/upper chest area erythema in this patient who did have tracheostomy because of underlying oral cancer in this patient currently with no high-grade fever patient is a nontoxic did not have elevated white count did have a combination of cellulitis will likely from gram-positive skin taj less likely gram-negative infection 2-PEG tube dislodgment but no evidence of any cellulitis at the PEG tube site (1) Cellulitis, neck Current Visit: Yes Status: Acute Code(s): L03.221 - CELLULITIS OF NECK SNOMED Code(s): 76298103 Plan: 1- we'll [place] the area of the redness 2- Vancomycin pharmacy to dose target trough of 15 while watching his kidney function and Vanco trough closely 3- discontinue the Zosyn to decrease risk of nephrotoxicity 4- we'll add Unasyn 3 g every 6 hours Will follow on a clinical condition and cultures to further adjust medication if needed Thank you for this consultation will follow this patient along with you Time with Patient: Greater than 30
[2020-02-29] MEDS: VALPROATE SODIUM 500 MG in SODIUM CHLORIDE 0.9% 100 ML IVPB SCH ×3 (01:12→18:21)
[2020-02-29] MEDS: VANCOMYCIN 1,250 MG in SODIUM CHLORIDE 0.9% 250 ML IVPB SCH (05:46)
[2020-02-29 06:53] LABS: Glucose,Whole Blood 65 mg/dL (75-99)
[2020-02-29] MEDS ORDERED: DEXTROSE 50% SYRINGE 50 ML IVP STA (06:55)
[2020-02-29 07:11] LABS: Glucose,Whole Blood 92 mg/dL (75-99)
[2020-02-29] MEDS: LORazepam 2 MG/ML INJ IV SCH ×2 (07:13→20:16)
[2020-02-29] MEDS: ENOXAPARIN 40 MG/0.4 ML SYRINGE SQ SCH (07:13)
[2020-02-29 08:04] VITALS: RESP 17
[2020-02-29 08:13] LABS: HCT 37.6 % (39.0-53.0); HGB 11.9 gm/dL (13.0-17.5); MCH 32.2 pg (25.0-35.0); MCHC 31.7 g/dL (31.0-37.0); MCV 101.5 fL (80.0-100.0); Mean Platelet Volume 9.5; RDW 12.2 % (11.5-15.5); WBC 4.6 k/uL (3.8-10.6)
[2020-02-29 08:21] LABS: Platelet Count 53 k/uL (150-450)
[2020-02-29 08:36] LABS: African American GFR (CKD) >90 (>60 ml/min/1.73 sqM); Anion Gap 3 mmol/L; Blood Urea Nitrogen 6 mg/dL (9-20); Calcium 8.3 mg/dL (8.4-10.2); Carbon Dioxide 29 mmol/L (22-30); Chloride 104 mmol/L (98-107); Glucose 89 mg/dL (74-99); Non-African American GFR(CKD) >90 (>60 ml/min/1.73 sqM); Potassium 3.5 mmol/L (3.5-5.1); Sodium 136 mmol/L (137-145)
[2020-02-29 11:20] LABS: Glucose,Whole Blood 84 mg/dL (75-99)
[2020-02-29] MEDS ORDERED: VANCOMYCIN TROUGH DUE 1 EACH MISC MISCELLANE ONE (13:00)
[2020-02-29] MEDS: DEXTROSE 5% IN WATER 1,000 ML IV SCH (13:14)
--- NOTE | 2020-02-29 13:34 | P.PN ---
Subjective Progress Note Date: 02/29/20 Principal diagnosis: PEG tube malfunction Patient doing well today. Denies pain. Objective - Vital Signs Vital signs: Vital Signs Temp 97.5 F L 02/29/20 07:00 Pulse 74 02/29/20 07:00 Resp 17 02/29/20 07:00 BP 118/68 02/29/20 07:00 Pulse Ox 92 L 02/29/20 07:00 Intake & Output 02/28/20 02/29/20 02/29/20 18:59 06:59 18:59 Intake Total 200 350 Output Total 825 1020 Balance 200 -825 -670 Weight 65.771 kg 58.6 kg Intake: IV 200 Intake, IV Titration 350 Amount Valproate Sodium 500 mg 100 In Sodium Chloride 0.9% 100 ml @ 100 mls/hr IVPB Q8H [facility] Rx#:[id number] Vancomycin 1,250 mg In 250 Sodium Chloride 0.9% 250 ml @ 125 mls/hr IVPB Q8H [facility] Rx#:[id number] Output: Urine 825 1020 Other: Voiding Method Urinal Urinal # Voids 1 1 - Exam Abdomen: Soft, nontender, nondistended, PEG tube in place - Labs CBC & Chem 7: 02/29/20 07:48 02/29/20 07:48 Labs: Abnormal Lab Results - Last 24 Hours (Table) 02/28/20 02/29/20 02/29/20 Range/Units 17:14 06:51 07:48 RBC 3.70 L (4.30-5.90) m/uL Hgb 11.9 L (13.0-17.5) gm/dL Hct 37.6 L (39.0-53.0) % MCV 101.5 H (80.0-100.0) fL Plt Count 53 L (150-450) k/uL Sodium (137-145) mmol/L BUN (9-20) mg/dL Creatinine (0.66-1.25) mg/dL POC Glucose (mg/dL) 108 H 65 L (75-99) mg/dL Calcium (8.4-10.2) mg/dL 02/29/20 Range/Units 07:48 RBC (4.30-5.90) m/uL Hgb (13.0-17.5) gm/dL Hct (39.0-53.0) % MCV (80.0-100.0) fL Plt Count (150-450) k/uL Sodium 136 L (137-145) mmol/L BUN 6 L (9-20) mg/dL Creatinine 0.57 L (0.66-1.25) mg/dL POC Glucose (mg/dL) (75-99) mg/dL Calcium 8.3 L (8.4-10.2) mg/dL Microbiology - Last 24 Hours (Table) 02/28/20 Unknown Gram Stain - Preliminary Neck Wound Culture - Preliminary 02/28/20 Unknown Anaerobic Culture - Preliminary Neck Assessment and Plan (1) PEG tube malfunction Narrative/Plan: Continue utilizing PEG tube as tolerated. We'll sign off. Call if needed. Current Visit: Yes Status: Acute Code(s): K94.23 - GASTROSTOMY MALFUNCTION SNOMED Code(s): 166930446
--- NOTE | 2020-02-29 13:48 | P.PN ---
Subjective 53-year-old male has a dislodged PEG tube came in for PEG tube replacement. Patient has history of bone cancer patient is a prior tracheostomy and PEG tube. On examination patient has an ulcer in the right inferior aspect of the tracheostomy which has foul-smelling and nontender.. Wound cultures were obtain from those areas patient was started on broad-spectrum antibiotics with infectious disease consult. Patient will undergo PEG tube replacement. Patient is on antiseizure medications which were switched to IV last PEG tube was replaced several months ago. 02/29/2020 Patient had a PEG tube that was replaced and patient will start using this. Patient wanted to go home but unfortunately patient the own cultures are still pending. Patient is on vancomycin and Unasyn I discussed with infectious disease infectious disease recommended to hold off on vancomycin and if his cellulitis continues to improve in the chest area by tomorrow patient will be discharged on Augmentin. Patient's cellulitis in the chest area surrounding the ulcer is improving. Constitutional: Denied any fatigue denied any fever. Cardio vascular: denied any chest pain, palpitations Gastrointestinal denied any nausea vomiting Pulmonary: Denied any shortness of breath cough Neurologic denied any new focal deficits All inpatient medications were reviewed and appropriate changes in these medications as dictated in the interval history and assessment and plan. Objective - Vital Signs Vital signs: Vital Signs Temp 97.5 F L 02/29/20 07:00 Pulse 74 02/29/20 07:00 Resp 17 02/29/20 07:00 BP 118/68 02/29/20 07:00 Pulse Ox 92 L 02/29/20 07:00 Intake & Output 02/28/20 02/29/20 02/29/20 18:59 06:59 18:59 Intake Total 200 350 Output Total 825 1020 Balance 200 -825 -670 Weight 65.771 kg 58.6 kg Intake: IV 200 Intake, IV Titration 350 Amount Valproate Sodium 500 mg 100 In Sodium Chloride 0.9% 100 ml @ 100 mls/hr IVPB Q8H [facility] Rx#:[id number] Vancomycin 1,250 mg In 250 Sodium Chloride 0.9% 250 ml @ 125 mls/hr IVPB Q8H [facility] Rx#:[id number] Output: Urine 825 1020 Other: Voiding Method Urinal Urinal # Voids 1 1 - Exam PHYSICAL EXAMINATION: GENERAL: The patient is alert and oriented x3, not in any acute distress. Thin built with significant muscle atrophy HEENT: Pupils are round and equally reacting to light. EOMI. No scleral icterus. No conjunctival pallor. Normocephalic, atraumatic. No pharyngeal erythema. No thyromegaly. CARDIOVASCULAR: S1 and S2 present. No murmurs, rubs, or gallops. PULMONARY: Chest is clear to auscultation, no wheezing or crackles. Tracheostomy site is foul-smelling has an ulcer in the inferior aspect of the tracheostomy 2. To be infected and foul-smelling discharge ABDOMEN: Soft, nontender, nondistended, normoactive bowel sounds. No palpable organomegaly. PEG site doesn't appear to be infected MUSCULOSKELETAL: No joint swelling or deformity. EXTREMITIES: No cyanosis, clubbing, or pedal edema. NEUROLOGICAL: Gross neurological examination did not reveal any focal deficits. SKIN: Ulcer as mentioned around the tracheostomy site with surrounding cellulitis - Labs CBC & Chem 7: 02/29/20 07:48 02/29/20 07:48 Labs: Abnormal Lab Results - Last 24 Hours (Table) 02/28/20 02/29/20 02/29/20 Range/Units 17:14 06:51 07:48 RBC 3.70 L (4.30-5.90) m/uL Hgb 11.9 L (13.0-17.5) gm/dL Hct 37.6 L (39.0-53.0) % MCV 101.5 H (80.0-100.0) fL Plt Count 53 L (150-450) k/uL Sodium (137-145) mmol/L BUN (9-20) mg/dL Creatinine (0.66-1.25) mg/dL POC Glucose (mg/dL) 108 H 65 L (75-99) mg/dL Calcium (8.4-10.2) mg/dL 02/29/20 Range/Units 07:48 RBC (4.30-5.90) m/uL Hgb (13.0-17.5) gm/dL Hct (39.0-53.0) % MCV (80.0-100.0) fL Plt Count (150-450) k/uL Sodium 136 L (137-145) mmol/L BUN 6 L (9-20) mg/dL Creatinine 0.57 L (0.66-1.25) mg/dL POC Glucose (mg/dL) (75-99) mg/dL Calcium 8.3 L (8.4-10.2) mg/dL Microbiology - Last 24 Hours (Table) 02/28/20 Unknown Gram Stain - Preliminary Neck Wound Culture - Preliminary 02/28/20 Unknown Anaerobic Culture - Preliminary Neck Assessment and Plan Plan: -Displaced PEG tube: Which was replaced today patient will be continued on IV antiseizure medications. Patient will start using his PEG tube from today - infected ulcer: With surrounding cell lightest. Continue with Unasyn this can you vancomycin as mentioned above -COPD without any acute exacerbation - seizure disorder -Gastroesophageal reflux disease DVT prophylaxis with Lovenox
--- NOTE | 2020-02-29 16:23 | PN ---
PROGRESS NOTE DATE OF SERVICE: 02/29/2020 REASON FOR FOLLOW UP: Neck cellulitis. INTERVAL COURSE: Patient is currently afebrile. Patient is breathing comfortably. He is hemodynamically stable. No vomiting or diarrhea has been reported. Patient himself unable to provide any history. PHYSICAL EXAMINATION: Blood pressure 109/63 with a pulse of 83, temperature 97.6. % on room air. General description is a middle-aged male lying in bed in no distress. HEENT examination: The neck and upper chest area redness has slightly decreased. Lungs: Unlabored breathing. Clear to auscultation anteriorly. Heart S1, S2. Regular rate and rhythm. ABDOMEN: Soft, no tenderness. LABS: Hemoglobin 11.1, white count 4.6, creatinine 0.57. Neck wound cultures currently pending. DIAGNOSTIC IMPRESSION AND PLAN: Patient with neck area cellulitis. This patient did have a midline tracheostomy from the history of oral cancer. The patient will continue on Unasyn. We will discontinue the vancomycin and if the patient continues to improve, to finish therapy with oral antibiotics. We will discuss with the admitting physician. Continue supportive care. MMODL / IJN: [id number] /
[2020-02-29 16:30] LABS: Glucose,Whole Blood 95 mg/dL (75-99)
[2020-02-29 20:31] LABS: Glucose,Whole Blood 119 mg/dL (75-99)
[2020-03-01] MEDS: VALPROATE SODIUM 500 MG in SODIUM CHLORIDE 0.9% 100 ML IVPB SCH ×2 (01:46→08:27)
[2020-03-01 01:54] LABS: Glucose,Whole Blood 116 mg/dL (75-99)
[2020-03-01] MEDS: DEXTROSE 5% IN WATER 1,000 ML IV SCH ×2 (05:14→14:29)
[2020-03-01] MEDS: AMPICILLIN-SULBACTAM 3 GM in SODIUM CHLORIDE 0.9% 100 ML IVPB SCH ×2 (05:16→11:01)
[2020-03-01 07:11] LABS: Glucose,Whole Blood 141 mg/dL (75-99)
[2020-03-01 08:13] VITALS: BP 96/74; PULSE 86; TEMP 97.8
[2020-03-01] MEDS: LORazepam 2 MG/ML INJ IV SCH (08:26)
[2020-03-01] MEDS: ENOXAPARIN 40 MG/0.4 ML SYRINGE SQ SCH (08:26)
[2020-03-01 11:31] LABS: Glucose,Whole Blood 89 mg/dL (75-99)
[2020-03-01 13:05] VITALS: BMI 16.4
--- NOTE | 2020-03-01 13:59 | P.PN ---
Subjective 53-year-old male has a dislodged PEG tube came in for PEG tube replacement. Patient has history of bone cancer patient is a prior tracheostomy and PEG tube. On examination patient has an ulcer in the right inferior aspect of the tracheostomy which has foul-smelling and nontender.. Wound cultures were obtain from those areas patient was started on broad-spectrum antibiotics with infectious disease consult. Patient will undergo PEG tube replacement. Patient is on antiseizure medications which were switched to IV last PEG tube was replaced several months ago. 02/29/2020 Patient had a PEG tube that was replaced and patient will start using this. Patient wanted to go home but unfortunately patient the own cultures are still pending. Patient is on vancomycin and Unasyn I discussed with infectious disease infectious disease recommended to hold off on vancomycin and if his cellulitis continues to improve in the chest area by tomorrow patient will be discharged on Augmentin. Patient's cellulitis in the chest area surrounding the ulcer is improving. 03/01/2020 Wound cultures are still pending patient's cellulitis remains the same. Patient is insisting on going home patient won't cultures are showing gram-negative bacilli if cleared by infectious disease and patient will be discharged Constitutional: Denied any fatigue denied any fever. Cardio vascular: denied any chest pain, palpitations Gastrointestinal denied any nausea vomiting Pulmonary: Denied any shortness of breath cough Neurologic denied any new focal deficits All inpatient medications were reviewed and appropriate changes in these medications as dictated in the interval history and assessment and plan. Objective - Vital Signs Vital signs: Vital Signs Temp 97.8 F 03/01/20 07:00 Pulse 86 03/01/20 07:00 Resp 17 03/01/20 07:00 BP 96/74 03/01/20 07:00 Pulse Ox 95 03/01/20 07:00 Intake & Output 02/29/20 03/01/20 03/01/20 18:59 06:59 18:59 Intake Total 350 400 425 Output Total 1020 400 280 Balance -670 0 145 Weight 58.6 kg 56.4 kg 56.4 kg Intake: Intake, IV Titration 350 425 Amount Ampicillin-Sulbactam 3 gm 100 In Sodium Chloride 0.9% 100 ml @ 200 mls/hr IVPB Q6HR [facility] Rx#:[id number] Dextrose 5% in Water 1, 225 000 ml @ 75 mls/hr IV . [id number] [facility] Rx#:[id number] Valproate Sodium 500 mg 100 100 In Sodium Chloride 0.9% 100 ml @ 100 mls/hr IVPB Q8H [facility] Rx#:[id number] Vancomycin 1,250 mg In 250 Sodium Chloride 0.9% 250 ml @ 125 mls/hr IVPB Q8H [facility] Rx#:[id number] Tube Feeding 400 Output: Urine 1020 400 280 Other: Voiding Method Urinal Urinal Urinal # Voids 1 1 - Exam PHYSICAL EXAMINATION: GENERAL: The patient is alert and oriented x3, not in any acute distress. Thin built with significant muscle atrophy HEENT: Pupils are round and equally reacting to light. EOMI. No scleral icterus. No conjunctival pallor. Normocephalic, atraumatic. No pharyngeal erythema. No thyromegaly. CARDIOVASCULAR: S1 and S2 present. No murmurs, rubs, or gallops. PULMONARY: Chest is clear to auscultation, no wheezing or crackles. Tracheostomy site is foul-smelling has an ulcer in the inferior aspect of the tracheostomy 2. To be infected and foul-smelling discharge ABDOMEN: Soft, nontender, nondistended, normoactive bowel sounds. No palpable organomegaly. PEG site doesn't appear to be infected MUSCULOSKELETAL: No joint swelling or deformity. EXTREMITIES: No cyanosis, clubbing, or pedal edema. NEUROLOGICAL: Gross neurological examination did not reveal any focal deficits. SKIN: Ulcer as mentioned around the tracheostomy site with surrounding cellulitis - Labs CBC & Chem 7: 02/29/20 07:48 02/29/20 07:48 Labs: Abnormal Lab Results - Last 24 Hours (Table) 02/29/20 03/01/20 03/01/20 Range/Units 20:29 01:52 07:09 POC Glucose (mg/dL) 119 H 116 H 141 H (75-99) mg/dL Microbiology - Last 24 Hours (Table) 02/29/20 Unknown Gram Stain - Preliminary Sputum Sputum Culture - Preliminary 02/28/20 Unknown Gram Stain - Preliminary Neck Wound Culture - Preliminary Gram Neg Bacilli Assessment and Plan Plan: -Displaced PEG tube: Which was replaced today patient will be continued on IV antiseizure medications. Patient will start using his PEG tube from today - infected ulcer: With surrounding cell lightest. Continue with Unasyn this can you vancomycin as mentioned above -COPD without any acute exacerbation - seizure disorder -Gastroesophageal reflux disease DVT prophylaxis with Lovenox
--- NOTE | 2020-03-01 15:29 | PN ---
PROGRESS NOTE DATE OF SERVICE: 03/01/2020 REASON FOR FOLLOW UP: Neck and chest wall cellulitis. INTERVAL HISTORY: Patient is currently afebrile. The patient is feeling better. Breathing comfortably. Overall swelling and redness of the chest wall and neck area has improved. No nausea, no diarrhea, no abdominal pain or diarrhea. The patient is dressed up and wants to go home. PHYSICAL EXAMINATION: Blood pressure 96/74 with a pulse of 86, temperature is 97.8, he is 95% on room air. The patient is a middle-aged male lying in bed in no distress. The neck area swelling and redness have improved. Lungs unlabored breathing, clear to auscultation anteriorly. Heart S1, S2. Regular rate and rhythm. Abdomen soft, no tenderness. LABS: The culture from the neck area showing a gram-negative with ID sensitivity pending. DIAGNOSTIC IMPRESSION AND PLAN: Patient with neck cellulitis and this patient did have some drainage from the trach site which was cultured showing gram-negative. The patient has been advised to stay in the hospital until the culture is finalized; however, he has been insisting on going home and threatening to leave [facility]. In view of clinical response to Unasyn, will recommend to finish therapy with Augmentin 875 b.i.d. for about a week. MMODL / IJN: [id number] /
--- NOTE | 2020-03-05 16:43 | P.DS ---
Providers Date of admission: 02/29/20 14:53 Expected date of discharge: 03/01/20 Attending physician: Alayna Denis Consults: 02/27/20 21:41 Consult Physician Urgent Consulting Provider: Bry Serrano Consult Reason/Comments: acute peg tube dislodgement Do you want consulting provider notified?: Already Contacted 02/28/20 12:58 Consult Physician Routine Consulting Provider: Lucille Farrell Consult Reason/Comments: trach site infection Do you want consulting provider notified?: Yes Primary care physician: Beth Fuller [facility] Course: Patient was later evaluated by infectious disease and was subsequently discharged please refer progress note from the same day for further details Patient Condition at Discharge: Stable Plan - Discharge Summary Discharge Rx Participant: No New Discharge Prescriptions: New Amoxicillin/Potassium Clav [Augmentin 875-125 Tablet] 1 tab PO Q12HR 5 Days #10 tab Continue LORazepam [Ativan] 1 mg PEG/G-TUBE BID Baclofen [Lioresal] 10 mg PEG/G-TUBE TID Valproic Acid Oral Soln [Depakene Syrup] 500 mg PEG/G-TUBE Q8H Amitriptyline HCl 50 mg PEG/G-TUBE HS Aspirin EC [Ecotrin Low Dose] 81 mg PEG/G-TUBE DAILY Gabapentin [Neurontin] 300 mg PEG/G-TUBE TID Discharge Medication List Baclofen [Lioresal] 10 mg PEG/G-TUBE TID 07/18/17 [History] LORazepam [Ativan] 1 mg PEG/G-TUBE BID 07/18/17 [History] Valproic Acid Oral Soln [Depakene Syrup] 500 mg PEG/G-TUBE Q8H 07/18/17 [History] Amitriptyline HCl 50 mg PEG/G-TUBE HS 04/10/18 [History] Aspirin EC [Ecotrin Low Dose] 81 mg PEG/G-TUBE DAILY 02/27/20 [History] Gabapentin [Neurontin] 300 mg PEG/G-TUBE TID 02/28/20 [History] Amoxicillin/Potassium Clav [Augmentin 875-125 Tablet] 1 tab PO Q12HR 5 Days #10 tab 03/01/20 [Rx] Follow up Appointment(s)/Referral(s): Alina Campos MD [Primary Care Provider] - 3 Days (office closed at time of discharge. Please call to make appointment) [facility], [NON-STAFF] - As Needed Patient Instructions/Handouts: Cellulitis (DC), PEG Tube Insertion (DC) Discharge Disposition: HOME WITH HOME HEALTH SERVICES
== END 2020-03-01 16:43 | disposition home health service (06) | DRG 394 ==
LOC: EC 17:39 → 4SSUR 21:40 → OBSVTOIN 02-29 14:53
PROVIDERS: ADMIT Hospitalist; ATTEND Hospitalist
PROC: 0DH68UZ Insertion of Feeding Device into Stomach, Via Natural or Artificial Opening Endoscopic (ICD-10-PCS; principal; 2020-02-28 08:10)
PROC: 3E0G76Z Introduction of Nutritional Substance into Upper GI, Via Natural or Artificial Opening (ICD-10-PCS; principal; 2020-02-28 08:10)
DX: K94.23 Gastrostomy malfunction (principal); J95.02 Infection of tracheostomy stoma; L03.221 Cellulitis of neck; L03.313 Cellulitis of chest wall; E46 Unspecified protein-calorie malnutrition; K21.9 Gastro-esophageal reflux disease without esophagitis; Z85.819 Personal history of malignant neoplasm of unspecified site of lip, oral cavity, and pharynx; Z85.830 Personal history of malignant neoplasm of bone; F17.210 Nicotine dependence, cigarettes, uncomplicated; B96.4 Proteus (mirabilis) (morganii) as the cause of diseases classified elsewhere; B96.20 Unspecified Escherichia coli [E. coli] as the cause of diseases classified elsewhere; F32.9 Major depressive disorder, single episode, unspecified; Z11.59 Encounter for screening for other viral diseases; G40.909 Epilepsy, unspecified, not intractable, without status epilepticus; F41.9 Anxiety disorder, unspecified; I25.2 Old myocardial infarction; J44.9 Chronic obstructive pulmonary disease, unspecified; R13.10 Dysphagia, unspecified; Z79.82 Long term (current) use of aspirin; Z79.899 Other long term (current) drug therapy; J40 Bronchitis, not specified as acute or chronic
CPT/HCPCS: 43246; 80048; 80053; 80202; 85025; 85027; 87070; 87075; 87077; 87186; 87205; 99284

== ENCOUNTER 2020-05-04 23:31 | Inpatient (IN) | payer MEDICAID, MEDICARE ==
--- NOTE | 2020-05-05 00:03 | ED ---
General Adult HPI - General Chief complaint: Skin/Abscess/Foreign Body Stated complaint: GI bleed Time Seen by Provider: 05/04/20 23:42 Source: patient, family, RN notes reviewed Mode of arrival: ambulatory Limitations: no limitations - History of Present Illness Initial comments: This a 59-year-old male presents emergency Department chief complaint of bleeding from his buttocks. Patient states that he thought his PEG tube is leaking states that he went to check and states he found blood running down his legs. Patient states that bleeding continues he does know that he has a history of decubitus ulcer in which she's been seen wound care for. Family room states that there was significant bleeding in which they tried to bandage. Patient does have a history of squamous cell carcinoma in which she had extensive surgery and is always feeding through a PEG tube along with having a trach. Patient reports no. Chills he states he feels very weak has been rundown. No chest pain or shortness of breath. - Related Data Home Medications Medication Instructions Recorded Confirmed Baclofen [Lioresal] 10 mg PEG/G-TUBE TID 07/18/17 02/27/20 LORazepam [Ativan] 1 mg PEG/G-TUBE BID 07/18/17 02/27/20 Valproic Acid Oral Soln [Depakene 500 mg PEG/G-TUBE Q8H 07/18/17 02/27/20 Syrup] Amitriptyline HCl 50 mg PEG/G-TUBE HS 04/10/18 02/27/20 Aspirin EC [Ecotrin Low Dose] 81 mg PEG/G-TUBE DAILY 02/27/20 02/27/20 Gabapentin [Neurontin] 300 mg PEG/G-TUBE TID 02/28/20 02/28/20 Previous Rx's Medication Instructions Recorded Amoxicillin/Potassium Clav 1 tab PO Q12HR 5 Days #10 tab 03/01/20 [Augmentin 875-125 Tablet] Allergies Allergy/AdvReac Type Severity Reaction Status Date / Time No Known Allergies Allergy Verified 05/04/20 23:41 Review of Systems ROS Statement: Those systems with pertinent positive or pertinent negative responses have been documented in the HPI. ROS Other: All systems not noted in ROS Statement are negative. Past Medical History Past Medical History: Cancer, COPD, GERD/Reflux, Myocardial Infarction ([place]), Seizure Disorder Additional Past Medical History / Comment(s): low blood pressure, oral cancer- 2015, Last Myocardial Infarction Date:: 2014 History of Any Multi-Drug Resistant Organisms: None Reported Past Surgical History: Heart Catheterization Additional Past Surgical History / Comment(s): trachestomy, oral surgery for cancer removal, PEG tube Past Anesthesia/Blood Transfusion Reactions: No Reported Reaction Additional Past Anesthesia/Blood Transfusion Reaction / Comment(s): adopted - no family hx Past Psychological History: Anxiety, Depression Smoking Status: Current every day smoker Past Alcohol Use History: Daily, Heavy Past Drug Use History: None Reported - Past Family History Mother Family Medical History: Unable to Obtain Additional Family Medical History / Comment(s): pt is adopted General Exam Limitations: no limitations General appearance: alert, in no apparent distress Head exam: Present: atraumatic, normocephalic, normal inspection Eye exam: Present: normal appearance, PERRL, EOMI. Absent: scleral icterus, conjunctival injection, periorbital swelling ENT exam: Present: mucous membranes moist, TM's normal bilaterally. Absent: normal exam, normal oropharynx Neck exam: Present: full ROM. Absent: normal inspection (trach), tenderness, meningismus, lymphadenopathy Respiratory exam: Present: normal lung sounds bilaterally. Absent: respiratory distress, wheezes, rales, rhonchi, stridor Cardiovascular Exam: Present: regular rate, normal rhythm, normal heart sounds. Absent: systolic murmur, diastolic murmur, rubs, gallop, clicks GI/Abdominal exam: Present: soft, normal bowel sounds, other (Peg tube noted). Absent: distended, tenderness, guarding, rebound, rigid Neurological exam: Present: alert, oriented X3 Skin exam: Present: warm, other (Left buttocks area is approximately 1 cm decubitus ulcer, mild oozing noted) Course Vital Signs 05/04/20 23:34 Temperature 97.5 F L Pulse Rate 88 Respiratory 20 Rate Blood Pressure 89/60 O2 Sat by Pulse 96 Oximetry Medical Decision Making - Medical Decision Making 59-year-old male present emergency from for bleeding from decubitus ulcer. There is no significant bleeding at this time. Patient's found to have hyponatremia most likely related to excessive water in PEG tube. Patient evaluated for generalized weakness, unsteady gait from hyponatremia consult to wound care and nephrology. - Lab Data Result diagrams: 05/05/20 00:14 05/05/20 00:14 Lab Results 05/05/20 05/05/20 Range/Units 00:14 00:14 WBC 6.4 (3.8-10.6) k/uL RBC 3.25 L (4.30-5.90) m/uL Hgb 10.9 L (13.0-17.5) gm/dL Hct 32.9 L (39.0-53.0) % MCV 101.3 H (80.0-100.0) fL MCH 33.4 (25.0-35.0) pg MCHC 33.0 (31.0-37.0) g/dL RDW 13.7 (11.5-15.5) % Macrocytosis Slight Sodium 119 L* (137-145) mmol/L Potassium 4.1 (3.5-5.1) mmol/L Chloride 82 L (98-107) mmol/L Carbon Dioxide 33 H (22-30) mmol/L Anion Gap 4 mmol/L BUN 6 L (9-20) mg/dL Creatinine 0.62 L (0.66-1.25) mg/dL Est GFR (CKD-EPI)AfAm >90 (>60 ml/min/1.73 sqM) Est GFR (CKD-EPI)NonAf >90 (>60 ml/min/1.73 sqM) Glucose 89 (74-99) mg/dL Calcium 9.2 (8.4-10.2) mg/dL Total Bilirubin 0.9 (0.2-1.3) mg/dL AST 29 (17-59) U/L ALT 10 (4-49) U/L Alkaline Phosphatase 68 (38-126) U/L Total Protein 7.4 (6.3-8.2) g/dL Albumin 4.1 (3.5-5.0) g/dL Critical Care Time Critical Care Time: Yes Total Critical Care Time: 35 Critical Care Time: Total of 35 minutes of her tremor used to initially evaluated patient, reviewed past medical history discuss case with family member, patient oriented labs. Patient found to have hyponatremia most likely causing his generalized weakness, steady keep. Patient will be admitted with nephrology, fluid hydration. Orders his dietitian for PEG tube feedings, nephrology consult, wound care consult for bleeding decubitus ulcer. Disposition Clinical Impression: Hyponatremia, Decubitus ulcer of buttock, stage 2, Generalized weakness Disposition: ADMITTED IP TO THIS [facility] Condition: Serious Referrals: Alina Campos MD [Primary Care Provider] - 1-2 days
[2020-05-05] MEDS ORDERED: SODIUM CHLORIDE 0.9% 1,000 ML IV ONE (00:17)
[2020-05-05 00:26] LABS: Basophils % (A) 0 %; Eosinophils # (A) 0.1 k/uL (0-0.7); Eosinophils % (A) 1 %; HCT 32.9 % (39.0-53.0); HGB 10.9 gm/dL (13.0-17.5); Lymphocytes # (A) 0.6 k/uL (1.0-4.8); Lymphocytes % (A) 9 %; MCH 33.4 pg (25.0-35.0); MCV 101.3 fL (80.0-100.0); Macrocytosis Slight; Mean Platelet Volume 11.2; Monocytes # (A) 0.8 k/uL (0-1.0); Monocytes % (A) 12 %; Neutrophils # (A) 4.8 k/uL (1.3-7.7); Neutrophils % (A) 76 %; RBC 3.25 m/uL (4.30-5.90); RDW 13.7 % (11.5-15.5); WBC 6.4 k/uL (3.8-10.6)
[2020-05-05 00:35] LABS: ALT 10 U/L (4-49); AST 29 U/L (17-59); African American GFR (CKD) >90 (>60 ml/min/1.73 sqM); Albumin 4.1 g/dL (3.5-5.0); Alkaline Phosphatase 68 U/L (38-126); Anion Gap 4 mmol/L; Blood Urea Nitrogen 6 mg/dL (9-20); Calcium 9.2 mg/dL (8.4-10.2); Carbon Dioxide 33 mmol/L (22-30); Chloride 82 mmol/L (98-107); Glucose 89 mg/dL (74-99); Non-African American GFR(CKD) >90 (>60 ml/min/1.73 sqM); Potassium 4.1 mmol/L (3.5-5.1); Total Bilirubin 0.9 mg/dL (0.2-1.3); Total Protein 7.4 g/dL (6.3-8.2)
[2020-05-05 00:38] LABS: Sodium 119 mmol/L (137-145)
[2020-05-05] MEDS ORDERED: NALOXONE 0.4 MG/ML 1 ML VIAL IV PRN (00:40)
[2020-05-05 00:44] LABS: Partial Thromboplastin Time 27.1 sec (22.0-30.0); Prothrombin Time 10.8 sec (9.0-12.0)
[2020-05-05 00:51] LABS: Platelet Count 28 k/uL (150-450)
[2020-05-05] MEDS: SODIUM CHLORIDE 0.9% 1,000 ML IV SCH ×2 (02:00→17:19)
[2020-05-05] MEDS ORDERED: IPRATROPIUM-ALBUTEROL 3 ML NEB INHALATION PRN (09:11)
[2020-05-05] MEDS ORDERED: LORazepam 1 MG TAB PO PRN (09:11)
[2020-05-05] MEDS ORDERED: PIPERACILLIN-TAZOBACTAM 3.375 GM in SODIUM CHLORIDE 0.9% 100 ML IVPB SCH (09:15)
[2020-05-05 09:31] LABS: African American GFR (CKD) >90 (>60 ml/min/1.73 sqM); Anion Gap 5 mmol/L; Blood Urea Nitrogen 5 mg/dL (9-20); Calcium 8.4 mg/dL (8.4-10.2); Carbon Dioxide 29 mmol/L (22-30); Chloride 91 mmol/L (98-107); Glucose 75 mg/dL (74-99); Non-African American GFR(CKD) >90 (>60 ml/min/1.73 sqM); Sodium 125 mmol/L (137-145)
[2020-05-05 09:44] LABS: Basophils % (A) 0 %; Eosinophils # (A) 0.1 k/uL (0-0.7); Eosinophils % (A) 2 %; HCT 28.7 % (39.0-53.0); Lymphocytes # (A) 0.5 k/uL (1.0-4.8); Lymphocytes % (A) 14 %; MCH 33.7 pg (25.0-35.0); MCHC 32.8 g/dL (31.0-37.0); MCV 102.5 fL (80.0-100.0); Macrocytosis Slight; Mean Platelet Volume 12.9; Monocytes # (A) 0.5 k/uL (0-1.0); Monocytes % (A) 14 %; Neutrophils # (A) 2.3 k/uL (1.3-7.7); Neutrophils % (A) 66 %; RDW 13.7 % (11.5-15.5); WBC 3.5 k/uL (3.8-10.6)
[2020-05-05 09:48] LABS: HGB 9.4 gm/dL (13.0-17.5); Platelet Count 32 k/uL (150-450)
[2020-05-05 10:03] LABS: Large Platelets Present
--- NOTE | 2020-05-05 10:36 | P.HPIM ---
History of Present Illness This is a pleasant 59-year-old male with tracheostomy and PEG tube came in because of the bleeding stage II decubitus ulcer. The ulcer is clean doesn't appear to be infected. Patient has a tracheostomy tube which has purulent and p ulse swelling discharge blood cultures will be obtained patient was started on Zosyn infectious disease was consulted for that. Patient denied any symptoms of fever chills patient was comparing of some fatigue. Patient is found to have severe hyponatremia. Patient uses about 50 ounces of free water through the PEG tube. PEG tube site area appears to be clean. Patient can use to smoke has some wheezing on exam. Review of Systems REVIEW OF SYSTEMS: CONSTITUTIONAL: As mentioned in HPI HEENT: No recent visual problems or hearing problems. Denied any sore throat. CARDIOVASCULAR: No chest pain, orthopnea, PND, no palpitations, no syncope. PULMONARY: No shortness of breath, no cough, no hemoptysis. GASTROINTESTINAL: No diarrhea, no nausea, no vomiting, no abdominal pain. NEUROLOGICAL: No headaches, no weakness, no numbness. HEMATOLOGICAL: Denies any bleeding or petechiae. GENITOURINARY: Denies any burning micturition, frequency, or urgency. MUSCULOSKELETAL/RHEUMATOLOGICAL: Denies any joint pain, swelling, or any muscle pain. ENDOCRINE: Denies any polyuria or polydipsia. The rest of the 14-point review of systems is negative. Past Medical History Past Medical History: Cancer, COPD, GERD/Reflux, Myocardial Infarction ([place]), Seizure Disorder Additional Past Medical History / Comment(s): low blood pressure, oral cancer- 2014, Last Myocardial Infarction Date:: 2014 History of Any Multi-Drug Resistant Organisms: None Reported Past Surgical History: Heart Catheterization Additional Past Surgical History / Comment(s): trachestomy, oral surgery for cancer removal, PEG tube Past Anesthesia/Blood Transfusion Reactions: No Reported Reaction Additional Past Anesthesia/Blood Transfusion Reaction / Comment(s): adopted - no family hx Past Psychological History: Anxiety, Depression Additional Psychological History / Comment(s): beer through peg tube a couple times a week Smoking Status: Current every day smoker Past Alcohol Use History: Daily, Heavy Additional Past Alcohol Use History / Comment(s): smokes < 1/2 PPD, has smoked since age 18 Past Drug Use History: None Reported - Past Family History Mother Family Medical History: Unable to Obtain Additional Family Medical History / Comment(s): pt is adopted Medications and Allergies Home Medications Medication Instructions Recorded Confirmed Type LORazepam [Ativan] 1 mg PEG/G-TUBE BID 07/18/17 05/05/20 History Valproic Acid Oral Soln [Depakene 500 mg PEG/G-TUBE Q8H 07/18/17 05/05/20 His tory Syrup] Aspirin EC [Ecotrin Low Dose] 81 mg PEG/G-TUBE DAILY 02/27/20 05/05/20 History Gabapentin [Neurontin] 300 mg PEG/G-TUBE TID 02/28/20 05/05/20 History Baclofen [Lioresal] 20 mg PEG/G-TUBE TID 05/05/20 05/05/20 History Metoprolol Tartrate [Lopressor] 12.5 mg PEG/G-TUBE BID 05/05/20 05/05/20 History Prochlorperazine [Compazine] 10 mg PEG/G-TUBE Q6H 05/05/20 05/05/20 History Ranitidine HCl 150 mg PEG/G-TUBE BID 05/05/20 05/05/20 History Allergies Allergy/AdvReac Type Severity Reaction Status Date / Time No Known Allergies Allergy Verified 05/05/20 07:52 Physical Exam Vitals: Vital Signs Temp Pulse Pulse Resp BP BP Pulse Ox 05/05/20 08:00 97.7 F 96 18 119/57 94 L 05/05/20 04:00 97.7 F 84 19 95/66 97 05/05/20 02:27 97/67 05/05/20 02:15 88/65 05/05/20 01:39 88 18 82/56 96 05/05/20 01:20 82/47 05/05/20 00:45 71/49 05/05/20 00:30 70 18 87/57 05/05/20 00:15 80 97/87 98 05/04/20 23:34 97.5 F L 88 20 89/60 96 Intake and Output 05/04/20 05/05/20 05/05/20 22:59 06:59 14:59 Intake Total 0 Output Total 700 675 Balance -700 -675 Intake: Oral 0 Output: Urine 700 675 Other: Voiding Method Urinal Weight 49 kg PHYSICAL EXAMINATION: GENERAL: The patient is alert and oriented x3, not in any acute distress. Thin built HEENT: Pupils are round and equally reacting to light. EOMI. No scleral icterus. No conjunctival pallor. Normocephalic, atraumatic. No pharyngeal erythema. No thyromegaly. Does have a tracheostomy with foul-smelling discharge CARDIOVASCULAR: S1 and S2 present. No murmurs, rubs, or gallops. PULMONARY: Good air entry bilateral lung carr[place] a [place] pretty wheezing on exam with rhonchi. ABDOMEN: Soft, nontender, nondistended, normoactive bowel sounds. No palpable organomegaly. MUSCULOSKELETAL: No joint swelling or deformity. EXTREMITIES: No cyanosis, clubbing, or pedal edema. NEUROLOGICAL: Gross neurological examination did not reveal any focal deficits. SKIN: She does have a stage II sacral Eliquis ulcer which appears clean and does bleed. Minimally. Results CBC & Chem 7: 05/05/20 08:56 05/05/20 08:56 Labs: Abnormal Lab Results - Last 24 Hours (Table) 05/05/20 05/05/20 05/05/20 Range/Units 00:14 00:14 08:56 WBC 3.5 L (3.8-10.6) k/uL RBC 3.25 L 2.80 L (4.30-5.90) m/uL Hgb 10.9 L 9.4 L D (13.0-17.5) gm/dL Hct 32.9 L 28.7 L (39.0-53.0) % MCV 101.3 H 102.5 H (80.0-100.0) fL Plt Count 28 L 32 L (150-450) k/uL Lymphocytes # 0.6 L 0.5 L (1.0-4.8) k/uL Sodium 119 L* (137-145) mmol/L Chloride 82 L (98-107) mmol/L Carbon Dioxide 33 H (22-30) mmol/L BUN 6 L (9-20) mg/dL Creatinine 0.62 L (0.66-1.25) mg/dL 05/05/20 Range/Units 08:56 WBC (3.8-10.6) k/uL RBC (4.30-5.90) m/uL Hgb (13.0-17.5) gm/dL Hct (39.0-53.0) % MCV (80.0-100.0) fL Plt Count (150-450) k/uL Lymphocytes # (1.0-4.8) k/uL Sodium 125 L (137-145) mmol/L Chloride 91 L (98-107) mmol/L Carbon Dioxide (22-30) mmol/L BUN 5 L (9-20) mg/dL Creatinine 0.51 L (0.66-1.25) mg/dL Thrombosis Risk Factor Assmnt - Choose All That Apply Any of the Below Risk Factors Present?: Yes Each Factor Represents 1 point: Abnormal pulmonary function (COPD), Age 41-60 years, Medical pt on bed rest Other Risk Factors: No Other congenital or acquired thrombophilia - If yes, enter type in comment: No Thrombosis Risk Factor Assessment Total Risk Factor Score: 3 Thrombosis Risk Factor Assessment Level: Moderate Risk Assessment and Plan Plan: -Hyponatremia: Possibly of hypovolemic hyponatremia patient will be continued on IV fluids patient's serum sodium did improve, nephrology will evaluate the patient. -Possible infection of the tracheostomy site wound cultures will be in from that site, patient probably has tracheobronchitis, we'll will use Zosyn to cover Pseudomonas as well. Infectious disease will be consulted and patient's chest x-ray be obtained to rule out pneumonia -PEG tube care: PEG tube doesn't appear to be infected patient will be resumed on tube feedings -Sacral decubitus ulcer which doesn't appear to be infected, wound care will be consulted -COPD with mild acute exacerbation patient will be started on inhalational treatments -Seizure disorder -Gastric reflux disease -DVT prophylaxis with Lovenox
--- NOTE | 2020-05-05 11:11 | P.CONS ---
History of Present Illness - Reason for Consult Consult date: 05/05/20 Wound care - History of Present Illness This is a 59-year-old patient being seen on for a nonhealing ulceration to the coccyx. Patient is a previous patient to the wound care center who had a nonhealing ulceration to his trach site. Patient states that the ulceration started approximately 1-2 weeks ago. He did not notice it until yesterday when he was wiping and noticed blood. Patient didn't think anything of it at the time until his underclothes were wet and presented with a large amount of bleeding to the site. Patient states he was not utilizing anything to the site. Patient's past medical history significant for oral cancer with trach, COPD, GERD, [place] seizure. Patient is a daily smoker. Review of Systems Review Of Systems: Constitutional: No fever, no chills, no night sweats. No weight change. No weakness, fatigue or lethargy. No daytime sleepiness. Integumentary:reports wounds, no lesions. No rash or pruritus. No unusual bruising. No change in hair or nails. Past Medical History Past Medical History: Cancer, COPD, GERD/Reflux, Myocardial Infarction ([place]), Seizure Disorder Additional Past Medical History / Comment(s): low blood pressure, oral cancer- 2014, Last Myocardial Infarction Date:: 2014 History of Any Multi-Drug Resistant Organisms: None Reported Past Surgical History: Heart Catheterization Additional Past Surgical History / Comment(s): trachestomy, oral surgery for cancer removal, PEG tube Past Anesthesia/Blood Transfusion Reactions: No Reported Reaction Additional Past Anesthesia/Blood Transfusion Reaction / Comm: adopted - no family hx Past Psychological History: Anxiety, Depression Additional Psychological History / Comment(s): beer through peg tube a couple times a week Smoking Status: Current every day smoker Past Alcohol Use History: Daily, Heavy Additional Past Alcohol Use History / Comment(s): smokes < 1/2 PPD, has smoked since age 18 Past Drug Use History: None Reported - Past Family History Mother Family Medical History: Unable to Obtain Additional Family Medical History / Comment(s): pt is adopted Medications and Allergies Home Medications Medication Instructions Recorded Confirmed Type LORazepam [Ativan] 1 mg PEG/G-TUBE BID 07/18/17 05/05/20 History Valproic Acid Oral Soln [Depakene 500 mg PEG/G-TUBE Q8H 07/18/17 05/05/20 History Syrup] Aspirin EC [Ecotrin Low Dose] 81 mg PEG/G-TUBE DAILY 02/27/20 05/05/20 History Gabapentin [Neurontin] 300 mg PEG/G-TUBE TID 02/28/20 05/05/20 History Baclofen [Lioresal] 20 mg PEG/G-TUBE TID 05/05/20 05/05/20 History Metoprolol Tartrate [Lopressor] 12.5 mg PEG/G-TUBE BID 05/05/20 05/05/20 History Prochlorperazine [Compazine] 10 mg PEG/G-TUBE Q6H 05/05/20 05/05/20 History Ranitidine HCl 150 mg PEG/G-TUBE BID 05/05/20 05/05/20 History Allergies Allergy/AdvReac Type Severity Reaction Status Date / Time No Known Allergies Allergy Verified 05/05/20 07:52 Physical Exam Vitals: Vital Signs Temp Pulse Pulse Resp BP BP Pulse Ox 05/05/20 08:00 97.7 F 96 18 119/57 94 L 05/05/20 04:00 97.7 F 84 19 95/66 97 05/05/20 02:27 97/67 05/05/20 02:15 88/65 05/05/20 01:39 88 18 82/56 96 05/05/20 01:20 82/47 05/05/20 00:45 71/49 05/05/20 00:30 70 18 87/57 05/05/20 00:15 80 97/87 98 05/04/20 23:34 97.5 F L 88 20 89/60 96 Intake and Output 05/04/20 05/05/20 05/05/20 22:59 06:59 14:59 Intake Total 0 Output Total 700 675 Balance -700 -675 Intake: Oral 0 Output: Urine 700 675 Other: Voiding Method Urinal Weight 49 kg Physical exam: General Appearance: Alert, cooperative,cachectic, no distress, appears stated age. Skin: Right gluteus nonhealing ulceration with fat layer exposure with sanguinous drainage, granulation seen throughout the wound bed with minimal slough. Periwound shows scarring and excoriation. all other Skin color, texture, tugor normal, no rashes or lesions. Neurologic: Alert oriented x3 Results CBC & Chem 7: 05/05/20 08:56 05/05/20 08:56 Labs: Abnormal Lab Results - Last 24 Hours (Table) 05/05/20 05/05/20 05/05/20 Range/Units 00:14 00:14 08:56 WBC 3.5 L (3.8-10.6) k/uL RBC 3.25 L 2.80 L (4.30-5.90) m/uL Hgb 10.9 L 9.4 L D (13.0-17.5) gm/dL Hct 32.9 L 28.7 L (39.0-53.0) % MCV 101.3 H 102.5 H (80.0-100.0) fL Plt Count 28 L 32 L (150-450) k/uL Lymphocytes # 0.6 L 0.5 L (1.0-4.8) k/uL Sodium 119 L* (137-145) mmol/L Chloride 82 L (98-107) mmol/L Carbon Dioxide 33 H (22-30) mmol/L BUN 6 L (9-20) mg/dL Creatinine 0.62 L (0.66-1.25) mg/dL 05/05/20 Range/Units 08:56 WBC (3.8-10.6) k/uL RBC (4.30-5.90) m/uL Hgb (13.0-17.5) gm/dL Hct (39.0-53.0) % MCV (80.0-100.0) fL Plt Count (150-450) k/uL Lymphocytes # (1.0-4.8) k/uL Sodium 125 L (137-145) mmol/L Chloride 91 L (98-107) mmol/L Carbon Dioxide (22-30) mmol/L BUN 5 L (9-20) mg/dL Creatinine 0.51 L (0.66-1.25) mg/dL Assessment and Plan (1) Decubitus ulcer of buttock, stage 2 Current Visit: Yes Status: Acute Code(s): L89.302 - PRESSURE ULCER OF UNSPECIFIED BUTTOCK, STAGE 2 SNOMED Code(s): 58813247464104899 Plan: Apply triad cream daily with a foam dressing. Patient may continue to utilize triad and outpatient setting. Patient should utilize a Roho cushion or waffle cushion when sitting. Increase protein. Thank you kindly for the consultation any questions please contact the wound care center DNP note has been reviewed and discussed with Dr. Henry and the impression and plan of care has been directed as dictated.
[2020-05-05] MEDS: IPRATROPIUM-ALBUTEROL 3 ML NEB INHALATION SCH ×4 (11:12→19:19)
--- NOTE | 2020-05-05 11:41 | CDI ---
Documentation Clarification Form Date: 05/05/2020 10:56AM CDS: Sol Ruiz RN, CCDS Admit Date: 05/05/2020 Patient Name: Blake Brown ATTENTION: The Clinical Documentation Specialists (CDI) and [employer] Coding Staff appreciate your assistance in clarifying documentation. Please respond to the clarification below the line at the bottom and electronically sign. The CDI & [employer] Coding staff will review the response and follow-up if needed. Please note: Queries are made part of the Legal Health Record. If you have any questions, please contact the author of this message via ITS. Dr. Gutiérrez The patient has a history of oral cancer, tracheostomy and peg tube. History/Risk Factors: 59-year-old male presents to the ED with purulent discharge and swelling from tracheostomy site. Medical History: Oral cancer, COPD, Gerd, Tracheostomy and Peg Tube Clinical Indicators: Labs: 05/05 Na 119; Bun 6; Cr 0.62; Total Protein 7.4, Albumin 4.1 Current BMI: 14.7 Nursing Assessment 05/05/20 Musculoskeletal Assessment lower extremity: Atrophy, weight bearing as tolerated. Fatigue with activity. Activity: Decreased strength, decreased endurance and dyspnea Abdomen description sunken, swallowing impaired, patient has peg tube sweeney does not take anything oral. Integumentary Assessment Patient has Stage 2 sacral decubitus ulcer and redness around trach site cultures taken. Treatment: Daily weight, Wound care PPN/TPN: Enteral Tube feedings. Lab monitoring: Tracheostomy culture In your professional opinion, can you please clarify if these findings signify one of the following conditions? Mild Protein-Calorie Malnutrition Moderate Protein-Calorie Malnutrition Severe Protein-Calorie Malnutrition Other condition, please specify Unable to determine (Last Revision: February 2019) Underweight MTDD
[2020-05-05] MEDS: HYDROPHILIC CREAM 180 GM TUBE TOPICAL SCH (11:57)
[2020-05-05] MEDS: PROCHLORPERAZINE 10 MG TAB PEG/G-TUBE SCH ×3 (11:58→23:07)
[2020-05-05] MEDS: VALPROIC ACID ORAL SOLN 250 MG/5 ML CUP PEG/G-TUBE SCH ×3 (11:58→23:07)
--- NOTE | 2020-05-05 12:04 | XR ---
EXAMINATION TYPE: XR chest 2V DATE OF EXAM: 05/05/2020 COMPARISON: Prior chest x-ray 08/16/2019 HISTORY: Head and neck cancer, rule out pneumonia TECHNIQUE: Frontal and lateral views of the chest are obtained. FINDINGS: Port-A-Cath is present in the left pectoral region, the distal tip the catheter courses int o the region of the superior vena cava near the cavoatrial junction. Surgical clips are present in th e right hilar region. The chin is overlying the upper chest. There is no evident pneumothorax. Blunti ng the costophrenic angles may be due to hyperinflation, no definite effusion. Tracheostomy tube is p resent overlying the tracheal air column is likely foreshortened due to technique, surgical clips pre sent in the right neck and over the right upper chest laterally There is no focal air space opacity. The cardiac silhouette size is within normal limits. The osseous structures are intact. IMPRESSION: Postop changes.
[2020-05-05 12:40] VITALS: BMI 14.6
[2020-05-05] MEDS: BACLOFEN 10 MG TAB PO SCH ×2 (17:18→20:08)
[2020-05-05] MEDS: GABAPENTIN 300 MG CAP PEG/G-TUBE SCH ×2 (17:18→20:09)
[2020-05-05] MEDS: AMPICILLIN-SULBACTAM 3 GM in SODIUM CHLORIDE 0.9% 100 ML IVPB SCH ×2 (17:20→23:08)
--- NOTE | 2020-05-05 18:58 | CONS ---
CONSULTATION REASON FOR CONSULT: Hyponatremia. HISTORY OF PRESENT ILLNESS: Patient is a 59-year-old male who was admitted to the hospital with complaints of bleeding from a coccyx ulcer. The patient also has a nonhealing ulcer at his trach site as well as an ulceration in the coccyx area. Patient has a history of oral cancer, status post surgery and PEG tube placement. The patient was noted to have a serum sodium of 119 yesterday. He is maintained on IV fluids in the form of saline and his sodium is up to 125 this morning. The patient denies any prior history of hyponatremia. He denies any new medications that were started recently. At this time I am not sure how much free water he was getting with his tube feedings. PAST MEDICAL HISTORY: Gastroesophageal reflux disease, seizure disorder, squamous cell cancer. Details of the cancer are not available. However, patient has had a trach with an ulcer around his tracheostomy, and he also has a PEG tube. PAST SURGICAL HISTORY: Heart catheterization, tracheostomy, surgery for oral cancer, PEG tube placement. SOCIAL HISTORY: Positive for smoking. Patient consumes alcohol as well. No other drug abuse. MEDICATIONS: Medications prior to admission included Neurontin, aspirin, Depakote, Ativan, Lopressor, Compazine, ranitidine, baclofen. ALLERGIES: NONE. REVIEW OF SYSTEMS: As per HPI. Other systems negative. PHYSICAL EXAMINATION: Patient is comfortable, awake, alert, oriented x3, not in any acute distress. Blood pressure was 119/57, heart rate of 88 per minute. Patient is afebrile. EXAMINATION OF THE HEART: S1 and S2. EXAMINATION OF LUNGS: Bilateral breath sounds are heard. ABDOMEN: Soft, non-tender. Examination of lower extremities shows no significant edema. TECHNICAL FELLOW exam shows patient is moving all 4 extremities. LABS: Labs show sodium 125, potassium 5.0, BUN 5, serum creatinine 0.5. White cell count 3.5, hemoglobin 9.4. ASSESSMENT: 1. Hyponatremia; appears to be hypovolemic, currently improved with normal saline. I will check a serum sodium now and continue with the tube feedings. Hold free water down the feeding tube for now until patient is on saline. At the time of discharge we will need to adjust the free water through the feeding tube. 2. Nonhealing ulcer in the coccyx with bleeding, maintained on antibiotics. 3. History of ulcer at the tracheostomy site. PLAN: Continue normal saline. Check sodium now. Hold free water down the feeding tube. MMODL / IJN: [id number] /
[2020-05-05] MEDS: FAMOTIDINE 20 MG TAB PEG/G-TUBE SCH (20:08)
[2020-05-05] MEDS: NYSTATIN 100,000UNIT/GM CREAM 30 GM TUBE TOPICAL SCH (20:09)
[2020-05-05] MEDS: TRIAMCINOLONE 0.1% CREAM 80 GM TUBE TOPICAL SCH (20:20)
[2020-05-05] MEDS ORDERED: NYSTAT-TRIAMCIN 100,000-0.1 UNIT/GM-% CREAM 30 GM TUBE TOPICAL SCH (21:00)
--- NOTE | 2020-05-05 22:15 | P.CONS ---
History of Present Illness - Reason for Consult Consult date: 05/05/20 Infected trach site Requesting physician: Tyree Gutiérrez - Chief Complaint Bleeding from his sacral pressure ulcer x 1 day - History of Present Illness Patient is a 59-year-old male with a past medical history significant for squamous cell carcinoma this patient was status post tracheostomy and did have a PEG tube for feeding.The patient to have history of sacral pressure ulcer with the patient follows the wound care center and presented to the hospital wi th bleeding from his pressure ulcer. Also complaining of some irritation to his trach site the last few days some dull aching pain over to 5-10 no radiation the right side of his trach seems to be slightly low and that there was some purulent drainage as well patient was started on Zosyn and her skin was consulted for further management of antibiotic therapy patient denies having any high-grade fever or chills denies having any chest pain or shortness of breath or cough no nausea no vomiting no vomiting no abdominal pain no diarrhea and denies having history of any trauma to his trach site or any new trach or manipulation the outpatient setting Review of Systems Positive point has been mentioned in the HPI rest of the systems are negative Past Medical History Past Medical History: Cancer, COPD, GERD/Reflux, Myocardial Infarction ([place]), Seizure Disorder Additional Past Medical History / Comment(s): low blood pressure, oral cancer- 2014, Last Myocardial Infarction Date:: 2014 History of Any Multi-Drug Resistant Organisms: None Reported Past Surgical History: Heart Catheterization Additional Past Surgical History / Comment(s): trachestomy, oral surgery for cancer removal, PEG tube Past Anesthesia/Blood Transfusion Reactions: No Reported Reaction Additional Past Anesthesia/Blood Transfusion Reaction / Comm: adopted - no family hx Past Psychological History: Anxiety, Depression Additional Psychological History / Comment(s): beer through peg tube a couple times a week Smoking Status: Current every day smoker Past Alcohol Use History: Daily, Heavy Additional Past Alcohol Use History / Comment(s): smokes < 1/2 PPD, has smoked since age 18 Past Drug Use History: None Reported - Past Family History Mother Family Medical History: Unable to Obtain Additional Family Medical History / Comment(s): pt is adopted Medications and Allergies Home Medications Medication Instructions Recorded Confirmed Type LORazepam [Ativan] 1 mg PEG/G-TUBE BID 07/18/17 05/05/20 History Valproic Acid Oral Soln [Depakene 500 mg PEG/G-TUBE Q8H 07/18/17 05/05/20 History Syrup] Aspirin EC [Ecotrin Low Dose] 81 mg PEG/G-TUBE DAILY 02/27/20 05/05/20 History Gabapentin [Neurontin] 300 mg PEG/G-TUBE TID 02/28/20 05/05/20 History Baclofen [Lioresal] 20 mg PEG/G-TUBE TID 05/05/20 05/05/20 History Metoprolol Tartrate [Lopressor] 12.5 mg PEG/G-TUBE BID 05/05/20 05/05/20 History Prochlorperazine [Compazine] 10 mg PEG/G-TUBE Q6H 05/05/20 05/05/20 History Ranitidine HCl 150 mg PEG/G-TUBE BID 05/05/20 05/05/20 History Allergies Allergy/AdvReac Type Severity Reaction Status Date / Time No Known Allergies Allergy Verified 05/05/20 07:52 Physical Exam Vitals: Vital Signs Temp Pulse Pulse Resp BP BP Pulse Ox 05/05/20 08:00 97.7 F 96 18 119/57 94 L 05/05/20 04:00 97.7 F 84 19 95/66 97 05/05/20 02:27 97/67 05/05/20 02:15 88/65 05/05/20 01:39 88 18 82/56 96 05/05/20 01:20 82/47 05/05/20 00:45 71/49 05/05/20 00:30 70 18 87/57 05/05/20 00:15 80 97/87 98 05/04/20 23:34 97.5 F L 88 20 89/60 96 Intake and Output 05/04/20 05/05/20 05/05/20 22:59 06:59 14:59 Intake Total 0 Output Total 700 675 Balance -700 -675 Intake: Oral 0 Output: Urine 700 675 Other: Voiding Method Urinal Weight 49 kg GENERAL DESCRIPTION: Middle-aged male up in the chair no distress. No tachypnea or accessory muscle of respiration use. HEENT: Shows Pallor , no scleral icterus. Oral mucous membrane is dry. No pharyngeal erythema or thrush NECK: Trach did have minimal erythema and skin no purulent drainage was noticed LUNGS: Unlabored breathing. Clear to auscultation anteriorly. No wheeze or crackle. HEART: S1, S2, regular rate and rhythm. No loud murmur ABDOMEN: Soft, no tenderness , guarding or rigidity, no organomegaly EXTREMITIES: No edema of feet. SKIN: No rash, no masses palpable. NEUROLOGICAL: The patient is awake, alert, oriented x3, mood and affect normal. Results CBC & Chem 7: 05/05/20 08:56 05/05/20 17:21 Labs: Abnormal Lab Results - Last 24 Hours (Table) 05/05/20 05/05/20 05/05/20 Range/Units 00:14 00:14 08:56 WBC 3.5 L (3.8-10.6) k/uL RBC 3.25 L 2.80 L (4.30-5.90) m/uL Hgb 10.9 L 9.4 L D (13.0-17.5) gm/dL Hct 32.9 L 28.7 L (39.0-53.0) % MCV 101.3 H 102.5 H (80.0-100.0) fL Plt Count 28 L 32 L (150-450) k/uL Lymphocytes # 0.6 L 0.5 L (1.0-4.8) k/uL Sodium 119 L* (137-145) mmol/L Chloride 82 L (98-107) mmol/L Carbon Dioxide 33 H (22-30) mmol/L BUN 6 L (9-20) mg/dL Creatinine 0.62 L (0.66-1.25) mg/dL 05/05/20 Range/Units 08:56 WBC (3.8-10.6) k/uL RBC (4.30-5.90) m/uL Hgb (13.0-17.5) gm/dL Hct (39.0-53.0) % MCV (80.0-100.0) fL Plt Count (150-450) k/uL Lymphocytes # (1.0-4.8) k/uL Sodium 125 L (137-145) mmol/L Chloride 91 L (98-107) mmol/L Carbon Dioxide (22-30) mmol/L BUN 5 L (9-20) mg/dL Creatinine 0.51 L (0.66-1.25) mg/dL Assessment and Plan Assessment: 1- patient was treated for cellulitis with some purulent drainage when he to call for the oral taj and the gram positives confirmed with a likely pathogen and less likely gram-negative bacteria (1) Cellulitis, neck Current Visit: No Status: Acute Code(s): L03.221 - CELLULITIS OF NECK SNOMED Code(s): 94521532 Plan: 1- discontinue Zosyn 2-start the patient on Unasyn 3 g every 6 hours 3-local care with the Mycolog cream We will follow on clinical condition and cultures to further adjust medication if needed Thank you for this consultation will follow this patient with you Time with Patient: Greater than 30
[2020-05-06] MEDS: AMPICILLIN-SULBACTAM 3 GM in SODIUM CHLORIDE 0.9% 100 ML IVPB SCH ×4 (05:29→23:52)
[2020-05-06] MEDS: SODIUM CHLORIDE 0.9% 1,000 ML IV SCH ×2 (05:29→17:31)
[2020-05-06] MEDS: PROCHLORPERAZINE 10 MG TAB PEG/G-TUBE SCH ×4 (05:30→23:52)
[2020-05-06 08:00] LABS: African American GFR (CKD) >90 (>60 ml/min/1.73 sqM); Anion Gap 4 mmol/L; Blood Urea Nitrogen 7 mg/dL (9-20); Calcium 8.3 mg/dL (8.4-10.2); Carbon Dioxide 30 mmol/L (22-30); Chloride 99 mmol/L (98-107); Glucose 105 mg/dL (74-99); Non-African American GFR(CKD) >90 (>60 ml/min/1.73 sqM); Potassium 3.9 mmol/L (3.5-5.1); Sodium 133 mmol/L (137-145)
[2020-05-06] MEDS: IPRATROPIUM-ALBUTEROL 3 ML NEB INHALATION SCH ×4 (09:09→19:47)
--- NOTE | 2020-05-06 10:13 | P.PN ---
Subjective Patient is a pleasant 59-year-old male with tracheostomy and PEG tube came in because of the bleeding stage II decubitus ulcer. The ulcer is clean doesn't appear to be infected. Patient has a tracheostomy tube which has purulent and pulse swelling discharge blood cultures will be obtained patient was started on Zosyn infectious disease was consulted for that. Patient denied any symptoms of fever chills patient was comparing of some fatigue. Patient is found to have severe hyponatremia. Patient uses about 50 ounces of free water through the PEG tube. PEG tube site area appears to be clean. Patient can use to smoke has some wheezing on exam. 05/06/2020 Patient's serum sodium improved patient's PEG tube free water need to be decreased as an outpatient we will give instruction to the family and the patient upon discharge. Patient is presently on fluid restriction be a PEG tube. Patient is also being treated for tracheobronchitis and the this is associated with the tracheostomy. Patient has both gram-positive cocci and gram-negative bacilli, patient is presently on Unasyn and infectious disease evaluated the patient. Constitutional: Denied any fatigue denied any fever. Cardio vascular: denied any chest pain, palpitations Gastrointestinal denied any nausea vomiting Pulmonary: Denied any shortness of breath cough Neurologic denied any new focal deficits All inpatient medications were reviewed and appropriate changes in these medications as dictated in the interval history and assessment and plan. Objective - Vital Signs Vital signs: Vital Signs Temp 97.4 F L 05/06/20 03:15 Pulse 86 05/06/20 09:22 Resp 17 05/06/20 03:15 BP 91/54 05/06/20 03:15 Pulse Ox 97 05/06/20 03:15 Intake & Output 05/05/20 05/06/20 05/06/20 18:59 06:59 18:59 Intake Total 0 600 Output Total 675 500 Balance -675 100 Weight 49 kg Intake: Oral 0 0 Tube Feeding 600 Output: Urine 675 500 Other: Voiding Method Urinal Urinal - Exam PHYSICAL EXAMINATION: GENERAL: The patient is alert and oriented x3, not in any acute distress. Thin built HEENT: Pupils are round and equally reacting to light. EOMI. No scleral icterus. No conjunctival pallor. Normocephalic, atraumatic. No pharyngeal erythema. No thyromegaly. Does have a tracheostomy with foul-smelling discharge CARDIOVASCULAR: S1 and S2 present. No murmurs, rubs, or gallops. PULMONARY: Good air entry bilateral lung carrillo a Milex pretty wheezing on exam with rhonchi. ABDOMEN: Soft, nontender, nondistended, normoactive bowel sounds. No palpable organomegaly. MUSCULOSKELETAL: No joint swelling or deformity. EXTREMITIES: No cyanosis, clubbing, or pedal edema. NEUROLOGICAL: Gross neurological examination did not reveal any focal deficits. SKIN: She does have a stage II sacral Eliquis ulcer which appears clean and does bleed. Minimally. - Labs CBC & Chem 7: 05/05/20 08:56 05/06/20 07:19 Labs: Abnormal Lab Results - Last 24 Hours (Table) 05/05/20 05/06/20 Range/Units 17:21 07:19 Sodium 125 L 133 L (137-145) mmol/L BUN 7 L (9-20) mg/dL Creatinine 0.62 L (0.66-1.25) mg/dL Glucose 105 H (74-99) mg/dL Calcium 8.3 L (8.4-10.2) mg/dL Microbiology - Last 24 Hours (Table) 05/05/20 09:20 Gram Stain - Preliminary Neck Wound Culture - Preliminary Assessment and Plan Plan: -Hyponatremia: Possibly of hypovolemic hyponatremia patient will be continued on IV fluids patient's serum sodium did improve, nephrology evaluate and the patient and the PEG tube free water was decreased. Patient's serum sodium improved -Possible infection of the tracheostomy, patient probably has tracheobronchitis, patient is presently on Unasyn chest x-ray did not show any pneumonia and wound cultures as mentioned above -PEG tube care: PEG tube doesn't appear to be infected patient will be resumed on tube feedings -Sacral decubitus ulcer which doesn't appear to be infected, wound care was consulted -COPD with mild acute exacerbation patient will be started on inhalational treatments -Seizure disorder -Gastric reflux disease -DVT prophylaxis with Lovenox
[2020-05-06] MEDS: ASPIRIN 81 MG PO SCH (10:27)
[2020-05-06] MEDS: GABAPENTIN 300 MG CAP PEG/G-TUBE SCH ×3 (10:27→21:01)
[2020-05-06] MEDS: VALPROIC ACID ORAL SOLN 250 MG/5 ML CUP PEG/G-TUBE SCH ×3 (10:27→23:52)
[2020-05-06] MEDS: ENOXAPARIN 40 MG/0.4 ML SYRINGE SQ SCH (10:27)
[2020-05-06] MEDS: FAMOTIDINE 20 MG TAB PEG/G-TUBE SCH ×2 (10:27→21:02)
[2020-05-06] MEDS: BACLOFEN 10 MG TAB PO SCH ×3 (10:27→21:02)
[2020-05-06] MEDS: HYDROPHILIC CREAM 180 GM TUBE TOPICAL SCH (10:28)
[2020-05-06] MEDS: TRIAMCINOLONE 0.1% CREAM 80 GM TUBE TOPICAL SCH ×2 (10:28→21:03)
[2020-05-06] MEDS: NYSTATIN 100,000UNIT/GM CREAM 30 GM TUBE TOPICAL SCH ×2 (10:28→21:03)
--- NOTE | 2020-05-06 12:38 | PN ---
PROGRESS NOTE Patient is seen for followup for hyponatremia. His serum sodium has improved to 133. Patient was using free water down his feeding tube and this was witnessed by the nurse and since it held his sodium has improved to 133. He remains on normal saline. Patient denies any significant complaints today. PHYSICAL EXAMINATION: Blood pressure was 88/66, heart rate 88 per minute he is afebrile examination of the heart S1, S2. Examination of the lungs, bilateral breath sounds are heard. Abdomen is soft, nontender. Examination of lower extremities shows no significant edema. The patient has a tracheostomy tube. LABS: Show sodium 133, potassium 3.9, BUN 7, creatinine 0.6. ASSESSMENT: 1. Hyponatremia, hypovolemic and associated with excessive free water down the feeding tube, currently improved with normal saline and holding off on free water with tube feedings. Repeat sodium in a.m. Continue to hold off on the free water. 2. History of sacral decubitus. 3. Nonhealing ulcer at the tracheostomy site. PLAN: Continue normal saline. Continue to hold off on free water with the tube feedings. MMODL / IJN: [id number] /
--- NOTE | 2020-05-06 17:47 | PN ---
PROGRESS NOTE DATE OF SERVICE: 05/06/2020 REASON FOR FOLLOWUP: Neck cellulitis. INTERVAL HISTORY: The patient is currently afebrile, has been breathing comfortably. Still complaining of some discomfort around the neck area. The patient denies having any chest pain or shortness of breath. Occasional cough. No abdominal pain or diarrhea. PHYSICAL EXAMINATION: Blood pressure 99/62 with pulse of 89, temperature 97. He is 96% on room air. General description is a middle-aged male up in the chair in no distress. RESPIRATORY SYSTEM: Unlabored breathing with decreased breath sounds at the base. No wheeze. HEART: S1, S2. Regular rate and rhythm. ABDOMEN: Soft. No tenderness. LABS: BUN of 7, creatinine 0.62. Wound culture is pending. DIAGNOSTIC IMPRESSION AND PLAN: Patient with trach site cellulitis in this patient currently covered with Unasyn along with Mycolog cream to the rash area. We will monitor his clinical course closely. MMODL / STEPHANIEN: [id number] /
[2020-05-07] MEDS: PROCHLORPERAZINE 10 MG TAB PEG/G-TUBE SCH ×2 (05:10→11:36)
[2020-05-07] MEDS: AMPICILLIN-SULBACTAM 3 GM in SODIUM CHLORIDE 0.9% 100 ML IVPB SCH ×2 (05:10→11:36)
[2020-05-07] MEDS: SODIUM CHLORIDE 0.9% 1,000 ML IV SCH (05:11)
[2020-05-07 07:20] VITALS: RESP 16; TEMP 97.7
[2020-05-07] MEDS: BACLOFEN 10 MG TAB PO SCH ×2 (07:57→08:26)
[2020-05-07] MEDS: VALPROIC ACID ORAL SOLN 250 MG/5 ML CUP PEG/G-TUBE SCH ×2 (07:57→08:26)
[2020-05-07] MEDS: ENOXAPARIN 40 MG/0.4 ML SYRINGE SQ SCH ×2 (07:57→08:14)
[2020-05-07] MEDS: ASPIRIN 81 MG PO SCH ×2 (07:57→08:14)
[2020-05-07] MEDS: IPRATROPIUM-ALBUTEROL 3 ML NEB INHALATION SCH ×2 (07:58→11:19)
[2020-05-07] MEDS: GABAPENTIN 300 MG CAP PEG/G-TUBE SCH ×2 (07:58→08:26)
[2020-05-07] MEDS: FAMOTIDINE 20 MG TAB PEG/G-TUBE SCH (07:58)
[2020-05-07] MEDS: TRIAMCINOLONE 0.1% CREAM 80 GM TUBE TOPICAL SCH (08:26)
[2020-05-07] MEDS: HYDROPHILIC CREAM 180 GM TUBE TOPICAL SCH (08:26)
[2020-05-07] MEDS: NYSTATIN 100,000UNIT/GM CREAM 30 GM TUBE TOPICAL SCH (08:26)
[2020-05-07 08:34] VITALS: BP 85/47
[2020-05-07 09:23] LABS: African American GFR (CKD) 128.4 (60.0-200.0); Non-African American GFR(CKD) 110.8 (60.0-200.0)
[2020-05-07 11:44] VITALS: PULSE 70
--- NOTE | 2020-05-07 13:25 | P.DS ---
Providers Date of admission: 05/05/20 00:51 Attending physician: Aaron Lambert MD Consults: 05/05/20 00:41 Consult Physician Urgent Consulting Provider: Gaby Justin Consult Reason/Comments: Hyponatremia Do you want consulting provider notified?: Yes 05/05/20 09:10 Consult Physician Routine Consulting Provider: Lucille Farrell Consult Reason/Comments: Infected trach Do you want consulting provider notified?: Yes Primary care physician: [facility] Course: Patient is a pleasant 59-year-old male with tracheostomy and PEG tube came in because of the bleeding stage II decubitus ulcer. The ulcer is clean doesn't appear to be infected. Patient has a tracheostomy tube which has purulent and pulse swelling discharge blood cultures will be obtained patient was started on Zosyn infectious disease was consulted for that. Patient denied any symptoms of fever chills patient was comparing of some fatigue. Patient is found to have severe hyponatremia. Patient uses about 50 ounces of free water through the PEG tube. PEG tube site area appears to be clean. Patient can use to smoke has some wheezing on exam. 05/06/2020 Patient's serum sodium improved patient's PEG tube free water need to be decreased as an outpatient we will give instruction to the family and the patient upon discharge. Patient is presently on fluid restriction be a PEG tube. Patient is also being treated for tracheobronchitis and the this is associated with the tracheostomy. Patient has both gram-positive cocci and gram-negative bacilli, patient is presently on Unasyn and infectious disease evaluated the patient. 05/07/2020 Patient's serum sodium did improve. Patient son free water through PEG tube will be decreased to half patient is presently using 50 ounces patient was asked to take malaise and 25 ounces of free water via PEG tube patient wound cultures are still pending. As per the recommendations of infectious disease patient will be discharged on Augmentin and a topical antifungal PHYSICAL EXAMINATION: GENERAL: The patient is alert and oriented x3, not in any acute distress. Thin built HEENT: Pupils are round and equally reacting to light. EOMI. No scleral icterus. No conjunctival pallor. Normocephalic, atraumatic. No pharyngeal erythema. No thyromegaly. Does have a tracheostomy with foul-smelling discharge CARDIOVASCULAR: S1 and S2 present. No murmurs, rubs, or gallops. PULMONARY: Good air entry bilateral lung carrillo a Milex pretty wheezing on exam with rhonchi. ABDOMEN: Soft, nontender, nondistended, normoactive bowel sounds. No palpable organomegaly. MUSCULOSKELETAL: No joint swelling or deformity. EXTREMITIES: No cyanosis, clubbing, or pedal edema. NEUROLOGICAL: Gross neurological examination did not reveal any focal deficits. SKIN: She does have a stage II sacral decubitus ulcer Assessment and Plan Plan: -Hyponatremia: Possibly of hypovolemic hyponatremia improved with IV fluids patient's serum sodium did improve -Possible infection of the tracheostomy, patient probably has tracheobronchitis, patient is presently on Unasyn chest x-ray did not show any pneumonia and wound cultures as mentioned above -PEG tube care: PEG tube doesn't appear to be infected -Sacral decubitus ulcer which doesn't appear to be infected, wound care was consulted -COPD with mild acute exacerbation improved -Seizure disorder -Gastric reflux disease Patient Condition at Discharge: Serious Plan - Discharge Summary Discharge Rx Participant: Yes New Discharge Prescriptions: New Amoxic-Pot Clav 875-125Mg [Augmentin 875-125] 1 tab PO Q12HR 7 Days #14 tab Continue LORazepam [Ativan] 1 mg PEG/G-TUBE BID Valproic Acid Oral Soln [Depakene Syrup] 500 mg PEG/G-TUBE Q8H Aspirin EC [Ecotrin Low Dose] 81 mg PEG/G-TUBE DAILY Gabapentin [Neurontin] 300 mg PEG/G-TUBE TID Prochlorperazine [Compazine] 10 mg PEG/G-TUBE Q6H Metoprolol Tartrate [Lopressor] 12.5 mg PEG/G-TUBE BID Ranitidine HCl 150 mg PEG/G-TUBE BID Baclofen [Lioresal] 20 mg PEG/G-TUBE TID Discharge Medication List LORazepam [Ativan] 1 mg PEG/G-TUBE BID 07/18/17 [History] Valproic Acid Oral Soln [Depakene Syrup] 500 mg PEG/G-TUBE Q8H 07/18/17 [History] Aspirin EC [Ecotrin Low Dose] 81 mg PEG/G-TUBE DAILY 02/27/20 [History] Gabapentin [Neurontin] 300 mg PEG/G-TUBE TID 02/28/20 [History] Baclofen [Lioresal] 20 mg PEG/G-TUBE TID 05/05/20 [History] Metoprolol Tartrate [Lopressor] 12.5 mg PEG/G-TUBE BID 05/05/20 [History] Prochlorperazine [Compazine] 10 mg PEG/G-TUBE Q6H 05/05/20 [History] Ranitidine HCl 150 mg PEG/G-TUBE BID 05/05/20 [History] Amoxic-Pot Clav 875-125Mg [Augmentin 875-125] 1 tab PO Q12HR 7 Days #14 tab 05/07/20 [Rx] Follow up Appointment(s)/Referral(s): Alina Campos MD [Primary Care Provider] - 1-2 days [facility], [NON-STAFF] - Patient Instructions/Handouts: Hyponatremia (DC), Pressure Injury (DC) Activity/Diet/Wound Care/Special Instructions: From Nhan's perspective patient can go home. Patient is not to have free water until follow up labs are done within 3-4 days after discharge. Discharge Disposition: HOME SELF-CARE
--- NOTE | 2020-05-07 15:49 | PN ---
PROGRESS NOTE DATE OF SERVICE: 05/07/2020 REASON FOR FOLLOWUP: Neck cellulitis. INTERVAL HISTORY: The patient is currently afebrile. The patient is feeling better. Breathing comfortably. Anxious to go home. No chest pain, shortness of breath or cough. No abdominal pain, no diarrhea. PHYSICAL EXAMINATION: Blood pressure is 90/43 with a pulse of 78, temperature 97.7. He is 92% on room air. General description is a middle-aged male up in the bed, in no distress. HEENT: Examination neck area swelling and redness has improved. LUNGS: Unlabored breathing, clear to auscultation anteriorly. HEART: S1, S2. Regular rate and rhythm. ABDOMEN: Soft, no tenderness. LABS: BUN of 9, creatinine 0.6. Wound culture so far pending. DIAGNOSTIC IMPRESSION AND PLAN: Patient with neck area cellulitis with some irritation to the trach site. The patient clinically responded to the Mycolog cream and Unasyn, he is anxious to go home. He will be switched over to oral Augmentin. Continue Mycolog cream for 1 week and close outpatient followup. Discussed with the admitting physician working on discharge. MMODL / IJN: [id number] /
--- NOTE | 2020-05-07 17:40 | PN ---
PROGRESS NOTE Patient is seen for followup for hyponatremia. Serum sodium has improved significantly. It is up to 137 today. The patient's free water has been held with his tube feedings and he is being discharged today. I have advised him that he should take half of the amount that he was previously taking. PHYSICAL EXAMINATION: On examination today, blood pressure 85/47, heart rate 90 per minute. Patient is afebrile. EXAMINATION OF THE HEART: S1 and S2. EXAMINATION OF LUNGS: Bilateral breath sounds are heard. ABDOMEN: Soft, non-tender. Examination of lower extremities shows no evidence of edema. GIG TENDER exam is grossly intact. LABS: Labs show sodium 137, potassium 4.0, chloride 102, serum creatinine 0.6. ASSESSMENT: Hyponatremia associated with excessive free water intake, currently significantly improved. The patient is advised to decrease his free water down the feeding tube post discharge and repeat labs in 3-4 days post discharge. MMODL / IJN: [id number] /
--- NOTE | 2020-05-10 06:07 | CDI ---
Documentation Clarification Form Date: 05/10/20 From: Anahi Boss Phone: If you have a question about this query, please contact Cuca Serrano, Manager Actuarial at [phone] between 8am and 5pm. Admit Date: 05/05/20 Discharge Date: 05/07/20 Patient Name: JESE CAMPBELL Visit Number: [id number] ATTENTION: The Clinical Documentation Specialists (CDI) and [facility] Coding Staff appreciate your assistance in clarifying documentation. Please respond to the clarification below the line at the bottom and electronically sign. The CDI & [facility] Coding staff will review the response and follow-up if needed. Please note: Queries are made part of the Legal Health Record. If you have any questions, please contact the author of this message via ITS. Dear Dr. Tyree Gutiérrez, Tracheobronchitis has documented in the H&P, 05/06 PN & DS. Please specify the acuity of tracheobronchitis with terms such as: Acute Chronic Other (please specify in the medical record) Clinically unable to further specify Unknown Acute.in future if it's not it's acute MTDD
== END 2020-05-07 14:55 | disposition home health service (06) | DRG 191 ==
LOC: EC 23:31 → 3SCARD 05-05 00:51 → 4SSUR 05-06 16:31
PROVIDERS: ADMIT Internal Medicine; ATTEND Internal Medicine
DX: J44.0 Chronic obstructive pulmonary disease with (acute) lower respiratory infection (principal); E87.1 Hypo-osmolality and hyponatremia; R64 Cachexia; J95.09 Other tracheostomy complication; Z68.1 Body mass index [BMI] 19.9 or less, adult; J44.1 Chronic obstructive pulmonary disease with (acute) exacerbation; L89.312 Pressure ulcer of right buttock, stage 2; L98.499 Non-pressure chronic ulcer of skin of other sites with unspecified severity; G40.909 Epilepsy, unspecified, not intractable, without status epilepticus; J20.9 Acute bronchitis, unspecified; E86.1 Hypovolemia; K21.9 Gastro-esophageal reflux disease without esophagitis; R63.6 Underweight; F17.210 Nicotine dependence, cigarettes, uncomplicated; Z71.6 Tobacco abuse counseling; I25.2 Old myocardial infarction; Z79.82 Long term (current) use of aspirin; Z79.899 Other long term (current) drug therapy; Z71.3 Dietary counseling and surveillance; Z85.819 Personal history of malignant neoplasm of unspecified site of lip, oral cavity, and pharynx; Z86.59 Personal history of other mental and behavioral disorders; Y83.6 Removal of other organ (partial) (total) as the cause of abnormal reaction of the patient, or of later complication, without mention of misadventure at the time of the procedure
CPT/HCPCS: 36415; 71046; 80048; 80053; 84295; 85025; 85610; 85730; 86850; 86900; 86901; 87070; 87205; 94640; 96360; 96361; 99285

== ENCOUNTER 2020-07-30 14:35 | Inpatient (IN) | payer MEDICAID, MEDICARE ==
--- NOTE | 2020-07-30 15:16 | ED ---
General Adult HPI - General Chief complaint: Fall Stated complaint: R hip pain Time Seen by Provider: 07/30/20 14:57 Source: patient, EMS Mode of arrival: EMS Limitations: physical limitation - History of Present Illness Initial comments: Dictation was produced using [employer] dictation software. please excuse any grammatical, word or spelling errors. This patient was cared for during a federal and state declared state of emergency secondary to Covid 19 Chief Complaint: 60-year-old male with chronic debility, cancer, COPD, tracheostomy, seizure disorder presents with right hip pain after fall History of Present Illness: Patient is a 60-year-old male who is brought in by EMS for right hip pain. Patient is a poor historian. He allegedly got up and fell to his right side landing on his right hip. Denies any head trauma or neck trauma. Patient's debilitated. Clinically with patient's baseline physical status is. Patient has tracheostomy for oral surgery. EMS was allegedly called by patient's . Patient claims of right hip pain. He denies any pain and Rocephin his body. The ROS documented in this emergency department record has been reviewed and confirmed by me. Those systems with pertinent positive or negative responses have been documented in the HPI. All other systems are other negative and/or noncontributory. PHYSICAL EXAM: General Impression: Alert and oriented x3, not in acute distress, cachexic HEENT: Normocephalic atraumatic, extra-ocular movements intact, pupils equal and reactive to light bilaterally, mucous membranes moist, tracheostomy in place Cardiovascular: Heart regular rate and rhythm Chest: Able to complete full sentences, no retractions, no tachypnea Abdomen: abdomen soft, non-tender, non-distended, no organomegaly Musculoskeletal: Pulses present and equal in all extremities, no peripheral edema Right lower extremity: Minimal pain with flexion at the right hip, skin over the right hip shows no trauma signs. Right leg is not shortened compared to the left Motor: no focal deficits noted Neurological: CN II-XII grossly intact, no focal motor or sensory deficits noted Skin: Intact with no visualized rashes Psych: Normal affect and mood ED course: 60-year-old male with multiple comorbidities presents for right hip pain after fall. Patient is a porcine is unclear whether patient suffered a mechanical fall or syncopized. He is very debilitated appearing at bedside. He is cachectic sick. No obvious signs of trauma on physical examination. Patient is a porcine. Chart review was performed. Patient has history of tracheostomy and PEG tube and stage II decubitus ulcer. Patient was recently admitted for hyponatremia and concerns of tracheostomy infection. At that time he was prescribed antibiotics or purulent discharge from the tracheostomy. Computed tomography scan of the head and C-spine shows no acute processes. Hip and pelvis x-ray shows no acute impacted transcervical fracture of the femoral neck. Chest x-ray shows no focal infiltrates to the right mid and lower lung. Laboratory evaluation obtained. No leukocytosis. Platelets is 44. Leukoc ytopenia. Coag panel is negative. Metabolic panel shows sodium of 121, normal renal markers, CRP 59.2. Rapid coronavirus is negative. Patient be admitted to [facility] hospitalist group. Orthopedic surgery was contacted and will be consulted. EKG interpretation: Ventricular rate 81, normal sinus rhythm, VA interval 144, QRS 70, QTC 427. No VA prolongation, no QTC prolongation, no ST or T-wave changes noted. EKG compared to 08/16/2019 showing no changes. Overall, this EKG is unremarkable - Related Data Home Medications Medication Instructions Recorded Confirmed LORazepam [Ativan] 1 mg PEG/G-TUBE BID 07/18/17 05/05/20 Valproic Acid Oral Soln [Depakene 500 mg PEG/G-TUBE Q8H 07/18/17 05/05/20 Syrup] Aspirin EC [Ecotrin Low Dose] 81 mg PEG/G-TUBE DAILY 02/27/20 05/05/20 Gabapentin [Neurontin] 300 mg PEG/G-TUBE TID 02/28/20 05/05/20 Baclofen [Lioresal] 20 mg PEG/G-TUBE TID 05/05/20 05/05/20 Metoprolol Tartrate [Lopressor] 12.5 mg PEG/G-TUBE BID 05/05/20 05/05/20 Prochlorperazine [Compazine] 10 mg PEG/G-TUBE Q6H 05/05/20 05/05/20 Folic Acid 1 mg PEG/G-TUBE DAILY 07/30/20 07/30/20 Allergies Allergy/AdvReac Type Severity Reaction Status Date / Time No Known Allergies Allergy Verified 07/30/20 16:28 Review of Systems ROS Statement: Those systems with pertinent positive or pertinent negative responses have been documented in the HPI. ROS Other: All systems not noted in ROS Statement are negative. Past Medical History Past Medical History: Cancer, COPD, GERD/Reflux, Myocardial Infarction ([place]), Seizure Disorder Additional Past Medical History / Comment(s): low blood pressure, oral cancer- 2014, Last Myocardial Infarction Date:: 2014 History of Any Multi-Drug Resistant Organisms: None Reported Past Surgical History: Heart Catheterization Additional Past Surgical History / Comment(s): trachestomy, oral surgery for cancer removal, PEG tube Past Anesthesia/Blood Transfusion Reactions: No Reported Reaction Additional Past Anesthesia/Blood Transfusion Reaction / Comment(s): adopted - no family hx Past Psychological History: Anxiety, Depression Smoking Status: Current every day smoker Past Alcohol Use History: Daily, Heavy Past Drug Use History: None Reported - Past Family History Mother Family Medical History: Unable to Obtain Additional Family Medical History / Comment(s): pt is adopted General Exam Limitations: physical limitation Course Vital Signs 07/30/20 14:48 Temperature 97.9 F Pulse Rate 73 Respiratory 22 Rate Blood Pressure 105/67 O2 Sat by Pulse 91 L Oximetry Medical Decision Making - Lab Data Result diagrams: 07/30/20 15:18 07/30/20 15:18 Lab Results 07/30/20 07/30/20 07/30/20 Range/Units 15:18 15:18 15:18 WBC 7.6 (3.8-10.6) k/uL RBC 3.43 L (4.30-5.90) m/uL Hgb 11.2 L (13.0-17.5) gm/dL Hct 32.8 L (39.0-53.0) % MCV 95.5 (80.0-100.0) fL MCH 32.7 (25.0-35.0) pg MCHC 34.2 (31.0-37.0) g/dL RDW 12.8 (11.5-15.5) % Plt Count 44 L (150-450) k/uL MPV 9.3 Neutrophils % 85 % Lymphocytes % 7 % Monocytes % 6 % Eosinophils % 1 % Basophils % 0 % Neutrophils # 6.5 (1.3-7.7) k/uL Lymphocytes # 0.5 L (1.0-4.8) k/uL Monocytes # 0.4 (0-1.0) k/uL Eosinophils # 0.1 (0-0.7) k/uL Basophils # 0.0 (0-0.2) k/uL Manual Slide Review Performed PT 11.1 (9.0-12.0) sec INR 1.1 (<1.2) APTT 28.0 (22.0-30.0) sec Sodium 121 L (137-145) mmol/L Potassium 4.3 (3.5-5.1) mmol/L Chloride 87 L (98-107) mmol/L Carbon Dioxide 26 (22-30) mmol/L Anion Gap 8 mmol/L BUN 8 L (9-20) mg/dL Creatinine 0.47 L (0.66-1.25) mg/dL Est GFR (CKD-EPI)AfAm >90 (>60 ml/min/1.73 sqM) Est GFR (CKD-EPI)NonAf >90 (>60 ml/min/1.73 sqM) Glucose 97 (74-99) mg/dL Calcium 8.5 (8.4-10.2) mg/dL Magnesium 1.8 (1.6-2.3) mg/dL Total Bilirubin 0.5 (0.2-1.3) mg/dL AST 24 (17-59) U/L ALT 12 (4-49) U/L Alkaline Phosphatase 56 (38-126) U/L Troponin I (0.000-0.034) ng/mL C-Reactive Protein 59.2 H (<10.0) mg/L Total Protein 7.3 (6.3-8.2) g/dL Albumin 3.6 (3.5-5.0) g/dL Coronavirus (PCR) (Not Detectd) 07/30/20 07/30/20 Range/Units 15:18 15:18 WBC (3.8-10.6) k/uL RBC (4.30-5.90) m/uL Hgb (13.0-17.5) gm/dL Hct (39.0-53.0) % MCV (80.0-100.0) fL MCH (25.0-35.0) pg MCHC (31.0-37.0) g/dL RDW (11.5-15.5) % Plt Count (150-450) k/uL MPV Neutrophils % % Lymphocytes % % Monocytes % % Eosinophils % % Basophils % % Neutrophils # (1.3-7.7) k/uL Lymphocytes # (1.0-4.8) k/uL Monocytes # (0-1.0) k/uL Eosinophils # (0-0.7) k/uL Basophils # (0-0.2) k/uL Manual Slide Review PT (9.0-12.0) sec INR (<1.2) APTT (22.0-30.0) sec Sodium (137-145) mmol/L Potassium (3.5-5.1) mmol/L Chloride (98-107) mmol/L Carbon Dioxide (22-30) mmol/L Anion Gap mmol/L BUN (9-20) mg/dL Creatinine (0.66-1.25) mg/dL Est GFR (CKD-EPI)AfAm (>60 ml/min/1.73 sqM) Est GFR (CKD-EPI)NonAf (>60 ml/min/1.73 sqM) Glucose (74-99) mg/dL Calcium (8.4-10.2) mg/dL Magnesium (1.6-2.3) mg/dL Total Bilirubin (0.2-1.3) mg/dL AST (17-59) U/L ALT (4-49) U/L Alkaline Phosphatase (38-126) U/L Troponin I <0.012 (0.000-0.034) ng/mL C-Reactive Protein (<10.0) mg/L Total Protein (6.3-8.2) g/dL Albumin (3.5-5.0) g/dL Coronavirus (PCR) Not Detected (Not Detectd) Disposition Clinical Impression: Hip fracture, Hyponatremia, Pneumonia Disposition: ADMITTED IP TO THIS HOSP Condition: Fair Referrals: Alina Campos MD [Primary Care Provider] - 1-2 days Decision Time: 16:35
[2020-07-30 15:37] LABS: Basophils % (A) 0 %; Eosinophils # (A) 0.1 k/uL (0-0.7); Eosinophils % (A) 1 %; HCT 32.8 % (39.0-53.0); HGB 11.2 gm/dL (13.0-17.5); Lymphocytes # (A) 0.5 k/uL (1.0-4.8); Lymphocytes % (A) 7 %; MCH 32.7 pg (25.0-35.0); MCHC 34.2 g/dL (31.0-37.0); MCV 95.5 fL (80.0-100.0); Mean Platelet Volume 9.3; Monocytes # (A) 0.4 k/uL (0-1.0); Monocytes % (A) 6 %; Neutrophils # (A) 6.5 k/uL (1.3-7.7); Neutrophils % (A) 85 %; RBC 3.43 m/uL (4.30-5.90); RDW 12.8 % (11.5-15.5); WBC 7.6 k/uL (3.8-10.6)
[2020-07-30 15:38] LABS: Platelet Count 44 k/uL (150-450)
[2020-07-30 15:43] LABS: INR 1.1 (<1.2); Prothrombin Time 11.1 sec (9.0-12.0)
[2020-07-30 15:52] LABS: ALT 12 U/L (4-49); AST 24 U/L (17-59); African American GFR (CKD) >90 (>60 ml/min/1.73 sqM); Albumin 3.6 g/dL (3.5-5.0); Alkaline Phosphatase 56 U/L (38-126); Anion Gap 8 mmol/L; Blood Urea Nitrogen 8 mg/dL (9-20); C Reactive Protein 59.2 mg/L (<10.0); Calcium 8.5 mg/dL (8.4-10.2); Carbon Dioxide 26 mmol/L (22-30); Chloride 87 mmol/L (98-107); Glucose 97 mg/dL (74-99); Magnesium 1.8 mg/dL (1.6-2.3); Non-African American GFR(CKD) >90 (>60 ml/min/1.73 sqM); Potassium 4.3 mmol/L (3.5-5.1); Sodium 121 mmol/L (137-145); Total Bilirubin 0.5 mg/dL (0.2-1.3); Total Protein 7.3 g/dL (6.3-8.2)
--- NOTE | 2020-07-30 16:15 | XR ---
EXAMINATION TYPE: XR chest 1V DATE OF EXAM: 07/30/2020 COMPARISON: Chest x-ray May 05, 2020 HISTORY: Cough. TECHNIQUE: Single AP portable frontal supine view of the chest is obtained. FINDINGS: Stable left subclavian Mediport catheter and tracheostomy tube. Surgical clips right supra clavicular and right axillary region redemonstrated. Surgical clips overlie right hilum. Background c hronic parenchymal change with new right mid to basilar multifocal opacities. Cardiac silhouette size stable and within normal limits. Osseous structures are intact. IMPRESSION: Chronic changes with new focal infiltrates right mid to lower lung.
--- NOTE | 2020-07-30 16:19 | XR ---
EXAMINATION TYPE: XR Hip RT and AP Pelvis DATE OF EXAM: 07/30/2020 COMPARISON: CT September 15, 2018 HISTORY: Pelvic and right hip pain after fall injury. TECHNIQUE: A single AP view of the pelvis is obtained. Two views of the right hip are obtained. FINDINGS: There is no acute fracture/dislocation evident in the pelvis. The sacroiliac joints appea r symmetric and thought within normal limits. Pubic symphysis is intact. Vascular calcification right common iliac artery noted. There is intra-articular loose body possible old fracture from the anteri or superior left acetabulum redemonstrated. Mild to moderate axial joint space loss both hips left gr eater than right is redemonstrated. Two views of right hip show new acute transcervical impacted fracture right proximal femur. Demineral ization is present. Redemonstration of 1.4 cm intra-articular loose body anterior superior aspect. T he overlying soft tissue is unremarkable. IMPRESSION: There is new acute impacted transcervical fracture of the femoral neck of right proximal femur.
--- NOTE | 2020-07-30 16:24 | CT ---
EXAMINATION TYPE: CT brain cspine wo con DATE OF EXAM: 07/30/2020 COMPARISON: CT brain and cervical spine August 16, 2019 HISTORY: Fall injury with headache and neck pain. CT DLP: 1251.3 mGycm. Automated Exposure Control for Dose Reduction was Utilized. TECHNIQUE: CT scan of the head and cervical spine are performed without contrast. FINDINGS: There is no acute intracranial hemorrhage or midline shift identified. Moderate ventricul ar and sulcal prominence. Low-attenuation in the deep and periventricular white matter. The calvariu m is intact. Mucosal thickening and patchy opacification ethmoid sinuses bilaterally. Visualized port ion of both globes are intact. Cervical spine is visualized in its entirety from C1 through upper thoracic levels and demonstrates grade 1 anterolisthesis C3 on C4 and C4 on C5. There is grade 1 retrolisthesis C6 on C7 redemonstrat ed. The C1-C2 articulation is within normal limits on the coronal images coronal images redemonstrate levoconvex scoliosis centered upper thoracic spine. No acute fracture or dislocation is seen. Multil evel disc space narrowing. Findings most prominent at C4-C5 through C7-T1 levels. Moderate to severe anterior spurring C5-C6 and C6-C7 levels redemonstrated. Tracheostomy tube stable in position. Modera te calcified plaque left greater than right carotid bulbs is noted. Ovip-[id number] emphysematous ch ruddy in the lung apices. IMPRESSION: 1. There is no acute fracture or dislocation evident in the cervical spine. Multilevel spondylolisthe sis and degenerative changes without significant change from prior somewhat pronounced for patient's age. 2. No acute intracranial hemorrhage or midline shift is seen. There is moderate diffuse cerebral atro phy and mild to moderate chronic small vessel ischemic changes redemonstrated.
[2020-07-30] MEDS ORDERED: SODIUM CHLORIDE 0.9% 1,000 ML IV STA (16:26)
[2020-07-30] MEDS ORDERED: ONDANSETRON 4 MG/2 ML VIAL IVP PRN (16:32)
[2020-07-30] MEDS ORDERED: NALOXONE 0.4 MG/ML 1 ML VIAL IV PRN (16:32)
[2020-07-30] MEDS ORDERED: CEFEPIME 2 GM in SODIUM CHLORIDE 0.9% 100 ML IVPB STA (16:34)
[2020-07-30] MEDS ORDERED: SODIUM CHLORIDE 0.9% 1,000 ML IV SCH (16:45)
[2020-07-30] MEDS ORDERED: VALPROIC ACID ORAL SOLN 250 MG/5 ML CUP PEG/G-TUBE SCH (19:15)
[2020-07-30 19:56] LABS: T4, Free (Free Thyroxine) 0.96 ng/dL (0.78-2.19)
[2020-07-30] MEDS: METOPROLOL TARTRATE 12.5 MG TAB PEG/G-TUBE SCH (20:34)
[2020-07-30] MEDS: LORazepam 1 MG TAB PEG/G-TUBE SCH (20:34)
[2020-07-30] MEDS: GABAPENTIN 300 MG CAP PEG/G-TUBE SCH (20:34)
[2020-07-30] MEDS: BACLOFEN 10 MG TAB PEG/G-TUBE SCH (20:34)
[2020-07-30] MEDS: PROCHLORPERAZINE 10 MG TAB PEG/G-TUBE SCH (20:34)
[2020-07-30 21:12] LABS: Potassium 5.3 mmol/L (3.5-5.1)
[2020-07-31] MEDS: PROCHLORPERAZINE 10 MG TAB PEG/G-TUBE SCH ×4 (00:23→21:32)
[2020-07-31 00:42] LABS: Potassium 3.8 mmol/L (3.5-5.1)
[2020-07-31] MEDS ORDERED: SODIUM CHLORIDE 0.9% 1,000 ML IV SCH (01:45)
--- NOTE | 2020-07-31 08:58 | P.CNOR ---
History of Present Illness - [facility] Consult date: 07/31/20 Consult reason: fracture (Right hip fracture) History of present illness: This is a 60-year-old gentleman admitted through the emergency department yesterday with pneumonia and presumptive Covid pneumonia. He apparently had a fall. The patient is a poor historian. He reportedly is a nonambulator and is significantly debilitated. The details of his fall are unclear. On exam and x- ray he is found to have an impacted nondisplaced femoral neck fracture. We're consulted for orthopedic evaluation. The patient is on the Covid unit. 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, COPD, history of tracheostomy tube insertion, history of PEG tube insertion, history of hyponatremia, COPD, seizure disorder and left seizure was more than 5 years ago, acid reflux, chronic hypotension Last Myocardial Infarction Date:: 2014 History of Any Multi-Drug Resistant Organisms: None Reported Past Surgical History: Heart Catheterization Additional Past Surgical History / Comment(s): trachestomy, oral surgery for cancer removal, PEG tube Past Anesthesia/Blood Transfusion Reactions: No Reported Reaction Additional Past Anesthesia/Blood Transfusion Reaction / Comm: adopted - no family hx Past Psychological History: Anxiety, Depression Additional Psychological History / Comment(s): beer through peg tube a couple times a week Smoking Status: Current every day smoker Past Alcohol Use History: Daily, Heavy Additional Past Alcohol Use History / Comment(s): smokes 1/2 PPD, has smoked since age 18 Past Drug Use History: None Reported - Past Family History Mother Family Medical History: Unable to Obtain Additional Family Medical History / Comment(s): pt is adopted Medications and Allergies Home Medications Medication Instructions Recorded Confirmed Type LORazepam [Ativan] 1 mg PEG/G-TUBE BID 07/18/17 07/30/20 History Valproic Acid Oral Soln [Depakene 500 mg PEG/G-TUBE Q8H 07/18/17 07/30/20 History Syrup] Aspirin EC [Ecotrin Low Dose] 81 mg PEG/G-TUBE DAILY 02/27/20 07/30/20 History Gabapentin [Neurontin] 300 mg PEG/G-TUBE TID 02/28/20 07/30/20 History Baclofen [Lioresal] 20 mg PEG/G-TUBE TID 05/05/20 07/30/20 History Metoprolol Tartrate [Lopressor] 12.5 mg PEG/G-TUBE BID 05/05/20 07/30/20 History Prochlorperazine [Compazine] 10 mg PEG/G-TUBE Q6H 05/05/20 07/30/20 History Folic Acid 1 mg PEG/G-TUBE DAILY 07/30/20 07/30/20 History Allergies Allergy/AdvReac Type Severity Reaction Status Date / Time No Known Allergies Allergy Verified 07/30/20 16:28 Physical Examination Physical exam is not performed today as the patient is on droplets precautions at this time. Computed tomography scan and x-rays are reviewed. Results X-ray and computed tomography scan are reviewed which reveal an impacted, nondisplaced femoral neck fracture in good position and alignment. - Labs Labs: Abnormal Lab Results - Last 24 Hours (Table) 07/30/20 07/30/20 07/30/20 Range/Units 15:18 15:18 15:18 RBC 3.43 L (4.30-5.90) m/uL Hgb 11.2 L (13.0-17.5) gm/dL Hct 32.8 L (39.0-53.0) % Plt Count 44 L (150-450) k/uL Lymphocytes # 0.5 L (1.0-4.8) k/uL Sodium 121 L (137-145) mmol/L Potassium (3.5-5.1) mmol/L Chloride 87 L (98-107) mmol/L BUN 8 L (9-20) mg/dL Creatinine 0.47 L (0.66-1.25) mg/dL C-Reactive Protein 59.2 H (<10.0) mg/L TSH 10.800 H (0.465-4.680) mIU/L 07/30/20 07/30/20 Range/Units 20:36 23:58 RBC (4.30-5.90) m/uL Hgb (13.0-17.5) gm/dL Hct (39.0-53.0) % Plt Count (150-450) k/uL Lymphocytes # (1.0-4.8) k/uL Sodium 120 L 119 L* (137-145) mmol/L Potassium 5.3 H (3.5-5.1) mmol/L Chloride 86 L 83 L (98-107) mmol/L BUN (9-20) mg/dL Creatinine (0.66-1.25) mg/dL C-Reactive Protein (<10.0) mg/L TSH (0.465-4.680) mIU/L H & H 07/30/20 Range/Units 15:18 Hgb 11.2 L (13.0-17.5) gm/dL Hct 32.8 L (39.0-53.0) % Coagulation 07/30/20 Range/Units 15:18 INR 1.1 (<1.2) Result Diagrams: 07/30/20 15:18 07/30/20 23:58 Assessment and Plan (1) Hip fracture Current Visit: Yes Status: Acute Code(s): S72.009A - FRACTURE OF UNSP PART OF NECK OF UNSP FEMUR, INIT SNOMED Code(s): 830061573 (2) Pneumonia Current Visit: Yes Status: Acute Code(s): J18.9 - PNEUMONIA, UNSPECIFIED ORGANISM SNOMED Code(s): 649269401 Plan: The x-ray and computed tomography scan findings are discussed with the nursing staff. The patient has a chronic debility. He reportedly is a nonambulator. With his current illness, it is recommended that he be taken to surgery. This fracture may be treated nonoperatively as he is nonambulatory and the fracture is impacted which typically are stable fractures. We will continue to follow peripherally and take repeat x-rays as indicated.
--- NOTE | 2020-07-31 09:02 | CT ---
EXAMINATION TYPE: CT hip RT wo con DATE OF EXAM: 07/31/2020 COMPARISON: Radiograph 07/30/2020 HISTORY: 60-year-old male Evaluation of fracture alignment-Rt Hip TECHNIQUE: Contiguous axial scanning of the right hip without IV contrast. Coronal and sagittal recon structions performed. 3-D reconstructions generated on a dedicated workstation. CT DLP: 284.3 mGycm Automated exposure control for dose reduction was used. FINDINGS: There appears to be old healed fracture deformity at the sacrococcygeal junction. Chronic 1.3 cm ossicle along the anterosuperior margin of the acetabulum. There is a subcapital femoral neck fracture impacted by 9 mm and with 9 mm of anterior displacement. Additional anterior apex and medial apex angulation. Some soft tissue swelling about the right hip. IMPRESSION: SUBCAPITAL RIGHT FEMORAL NECK FRACTURE IMPACTED BY 9 MM. THERE IS 9 MM OF ANTERIOR DISPLACEMENT AND A DDITIONAL ANTERIOR AND MEDIAL APEX ANGULATION. NOTE A CHRONIC 1.3 CM OSSICLE ALONG THE ANTEROSUPERIOR MARGIN OF THE ACETABULUM.
[2020-07-31 09:28] LABS: Basophils % (A) 0 %; Eosinophils % (A) 0 %; HCT 33.4 % (39.0-53.0); HGB 11.2 gm/dL (13.0-17.5); Lymphocytes # (A) 0.5 k/uL (1.0-4.8); Lymphocytes % (A) 7 %; MCH 32.3 pg (25.0-35.0); MCHC 33.5 g/dL (31.0-37.0); MCV 96.4 fL (80.0-100.0); Mean Platelet Volume 9.3; Monocytes # (A) 0.5 k/uL (0-1.0); Monocytes % (A) 6 %; Neutrophils # (A) 6.2 k/uL (1.3-7.7); Neutrophils % (A) 85 %; RBC 3.46 m/uL (4.30-5.90); RDW 12.9 % (11.5-15.5); WBC 7.3 k/uL (3.8-10.6)
[2020-07-31 09:35] LABS: Platelet Count 49 k/uL (150-450)
[2020-07-31] MEDS: FOLIC ACID 1 MG TAB PEG/G-TUBE SCH (10:51)
[2020-07-31] MEDS: METOPROLOL TARTRATE 12.5 MG TAB PEG/G-TUBE SCH ×2 (10:51→21:34)
[2020-07-31] MEDS: GABAPENTIN 300 MG CAP PEG/G-TUBE SCH ×2 (10:51→15:50)
[2020-07-31] MEDS: LORazepam 1 MG TAB PEG/G-TUBE SCH (10:52)
[2020-07-31] MEDS: PANTOPRAZOLE 40 MG/10 ML VIAL IV SCH (10:52)
[2020-07-31] MEDS: BACLOFEN 10 MG TAB PEG/G-TUBE SCH ×3 (10:52→21:32)
[2020-07-31] MEDS: CEFEPIME 2 GM in SODIUM CHLORIDE 0.9% 100 ML IVPB SCH ×2 (10:52→21:33)
[2020-07-31] MEDS: ASPIRIN 81 MG PEG/G-TUBE SCH (10:52)
--- NOTE | 2020-07-31 11:53 | P.HPIM ---
History of Present Illness This is a pleasant 60 years old male who presents because of fall. He is patient of Dr. Mg. Patient gave me information also I talked to his miss Godfrey over the phone. Apparently the patient yesterday morning he fell while he was trying to get out of the bed without losing consciousness and he had his right hip area and imaging showing impacted right hip fracture, orthopedic team evaluated the patient and the planning to non-operative fixation. 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 His PCP Dr. Mg lowered his valproic acid about 7-8 months ago because of toxicity. He follows with Dr. Cardenas oncologist for his history of CANCER. He smokes about 1 pack per day and he drinks 1-2 beers of 24 ounces through his PEG tube. He eats and drinks through PEG tube, uses marijuana at times for his chronic back pain. MAPS was checked and he is and lorazepam 2 mg daily and gabapentin Sodium level has been requested in the morning but result isn't back yet still now, discussed with the staff and it looks like it is send out. We going to order another sodium stat cable Review of Systems CONSTITUTIONAL: No fever, no malaise, no fatigue. HEENT: No recent visual problems or hearing problems. Denied any sore throat. CARDIOVASCULAR: No orthopnea, PND, no palpitations, no syncope. PULMONARY: No shortness of breath, no cough, no hemoptysis. GASTROINTESTINAL: No diarrhea, no nausea, no vomiting, no abdominal pain. Normoactive bowel sounds. NEUROLOGICAL: No headaches, no weakness, no numbness. HEMATOLOGICAL: Denies any bleeding or petechiae. GENITOURINARY: Denies any burning micturition, frequency, or urgency. MUSCULOSKELETAL/RHEUMATOLOGICAL: Denies any joint pain, swelling, or any muscle pain. ENDOCRINE: Denies any polyuria or polydipsia. 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, COPD, history of tracheostomy tube insertion, history of PEG tube insertion, history of hyponatremia, COPD, seizure disorder and left seizure was more than 5 years ago, acid reflux, chronic hypotension Last Myocardial Infarction Date:: 2014 History of Any Multi-Drug Resistant Organisms: None Reported Past Surgical History: Heart Catheterization Additional Past Surgical History / Comment(s): trachestomy, oral surgery for cancer removal, PEG tube Past Anesthesia/Blood Transfusion Reactions: No Reported Reaction Additional Past Anesthesia/Blood Transfusion Reaction / Comment(s): adopted - no family hx Past Psychological History: Anxiety, Depression Additional Psychological History / Comment(s): beer through peg tube a couple times a week Smoking Status: Current every day smoker Past Alcohol Use History: Daily, Heavy Additional Past Alcohol Use History / Comment(s): smokes 1/2 PPD, has smoked since age 18 Past Drug Use History: None Reported - Past Family History Mother Family Medical History: Unable to Obtain Additional Family Medical History / Comment(s): pt is adopted Medications and Allergies Home Medications Medication Instructions Recorded Confirmed Type LORazepam [Ativan] 1 mg PEG/G-TUBE BID 07/18/17 07/30/20 History Valproic Acid Oral Soln [Depakene 500 mg PEG/G-TUBE Q8H 07/18/17 07/30/20 History Syrup] Aspirin EC [Ecotrin Low Dose] 81 mg PEG/G-TUBE DAILY 02/27/20 07/30/20 History Gabapentin [Neurontin] 300 mg PEG/G-TUBE TID 02/28/20 07/30/20 History Baclofen [Lioresal] 20 mg PEG/G-TUBE TID 05/05/20 07/30/20 History Metoprolol Tartrate [Lopressor] 12.5 mg PEG/G-TUBE BID 05/05/20 07/30/20 History Prochlorperazine [Compazine] 10 mg PEG/G-TUBE Q6H 05/05/20 07/30/20 History Folic Acid 1 mg PEG/G-TUBE DAILY 07/30/20 07/30/20 History Allergies Allergy/AdvReac Type Severity Reaction Status Date / Time No Known Allergies Allergy Verified 07/30/20 16:28 Physical Exam Vitals: Vital Signs Temp Pulse Pulse Resp BP BP Pulse Ox 07/31/20 09:19 98.9 F 79 20 91/60 100 07/31/20 07:30 97.7 F 95 20 106/79 98 07/31/20 02:00 99.0 F 96 20 115/76 100 07/30/20 21:15 98 F 93 14 129/80 100 07/30/20 18:43 97.6 F 95 17 117/65 99 07/30/20 17:43 97.9 F 81 22 121/55 96 07/30/20 16:35 81 22 122/65 97 07/30/20 15:54 84 22 136/78 97 07/30/20 14:48 97.9 F 73 22 105/67 91 L Intake and Output 07/30/20 07/31/20 07/31/20 22:59 06:59 14:59 Output Total 1300 900 Balance -1300 -900 Output: Urine 1300 400 Stool 500 Other: Voiding Method Urinal # Voids 4 2 Weight 68.039 kg 68.039 kg GENERAL: The patient is alert and oriented x3, not in any acute distress. Well developed, well nourished. -HEENT: Pupils are round and equally reacting to light. EOMI. No scleral icterus. No conjunctival pallor. Normocephalic, atraumatic. No pharyngeal erythema. No thyromegaly. Mouth floor deformity from previous surgery CARDIOVASCULAR: S1 and S2 present. No murmurs, rubs, or gallops. -PULMONARY: Chest is clear to auscultation, no wheezing or crackles. Tracheostomy tube is in place and is neck collar ABDOMEN: Soft, nontender, nondistended, normoactive bowel sounds. No palpable organomegaly. MUSCULOSKELETAL: No joint swelling or deformity. -EXTREMITIES: No cyanosis, clubbing, or pedal edema. Right hip tenderness NEUROLOGICAL: Gross neurological examination did not reveal any focal deficits. SKIN: No rashes. No petechiae Results CBC & Chem 7: 07/31/20 08:16 07/30/20 23:58 Labs: Abnormal Lab Results - Last 24 Hours (Table) 07/30/20 07/30/20 07/30/20 Range/Units 15:18 15:18 15:18 RBC 3.43 L (4.30-5.90) m/uL Hgb 11.2 L (13.0-17.5) gm/dL Hct 32.8 L (39.0-53.0) % Plt Count 44 L (150-450) k/uL Lymphocytes # 0.5 L (1.0-4.8) k/uL Sodium 121 L (137-145) mmol/L Potassium (3.5-5.1) mmol/L Chloride 87 L (98-107) mmol/L BUN 8 L (9-20) mg/dL Creatinine 0.47 L (0.66-1.25) mg/dL C-Reactive Protein 59.2 H (<10.0) mg/L TSH 10.800 H (0.465-4.680) mIU/L 07/30/20 07/30/20 07/31/20 Range/Units 20:36 23:58 08:16 RBC 3.46 L (4.30-5.90) m/uL Hgb 11.2 L (13.0-17.5) gm/dL Hct 33.4 L (39.0-53.0) % Plt Count 49 L (150-450) k/uL Lymphocytes # 0.5 L (1.0-4.8) k/uL Sodium 120 L 119 L* (137-145) mmol/L Potassium 5.3 H (3.5-5.1) mmol/L Chloride 86 L 83 L (98-107) mmol/L BUN (9-20) mg/dL Creatinine (0.66-1.25) mg/dL C-Reactive Protein (<10.0) mg/L TSH (0.465-4.680) mIU/L Thrombosis Risk Factor Assmnt - Choose All That Apply Each Factor Represents 1 point: Age 41-60 years Thrombosis Risk Factor Assessment Total Risk Factor Score: 1 Thrombosis Risk Factor Assessment Level: Low Risk Assessment and Plan Assessment: -Fall with right hip fracture, with orthopedic team planning for non-operative reduction and fixation -Hyponatremia, 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 Monitor sodium closely. Put on fluid restriction. Nephrology consult -Peripheral neuropathy on valproic acid, hold valproic acid for now due to low sodium -Possible aspiration pneumonia with abnormal infiltrate in the right mid to lower lung, no respiratory symptoms. 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
[2020-07-31] MEDS ORDERED: SODIUM CHLORIDE TAB 1 GM TAB PO SCH ×2 (12:00→19:30)
[2020-07-31] MEDS: NICOTINE 21MG/24HR PATCH TRANSDERM SCH (13:07)
--- NOTE | 2020-07-31 14:45 | P.CNNES ---
History of Present Illness Consult date: 07/31/20 Requesting physician: Aaron E Sheet Reason for Consult: request to discontinue valproic acid due to possible SIADH History of Present Illness: This is a 60-year-old gentleman with medical history of seizure, myocardial in far, squamous cell carcinoma of oral cavity in 2014 status post tracheostomy presented emergency department on 07/30/2020 regarding right hip pain that. Apparently the patient the was trying to get out of his bed on 07/30/2020 as a result he fell without loss of consciousness. Patient landed on his right hip and no head trauma or neck trauma. Patient is on the valproic acid 500 mg every hours via PEG tube. Also is on gabapentin 300 mg 1 tablet 3 times a day. On baclofen 20 mg 1 tablet 3 times a day. On Ativan 1 mg 1 tablet twice a day. And is on folic acid 1 mg daily He smokes 1 pack a day for years and he drinks about 1-2 beers 24 ounces via PEG tube. He also uses it marijuana via PEG tube for chronic pain. I spoke with the patient's (Mag) via phone who stated patient had history of alcohol withdrawl seizure in the past. The last seizure as about >5 years ago per . She is not sure what medication he was on. But know he was on Depakote for mood and last time he took Depakote was 1 year ago. The patient resides with his . Workup in the hospital consisted of: CT of the head is reported as no acute intracranial hemorrhage or midline shift is seen. There is moderate diffuse cerebral atrophy and mild to moderate chronic small vessel ischemic changes redemonstrated. CT cervical spine it's reported as there is no acute fracture or dislocation ev ident in the cervical spine that. Multilevel spondylolithiasis and degenerative changes without significant change from the prior somewhat pronounced for the patient's age CT right hip: Sup L right femoral neck fracture impacted by 9 mm. There is 9 mm off anterior displacement an additional anterior and medial apex angulation noted a chronic 1.3 cm ossicle along the anterior superior margin of the acetabulum. Orthopedic is on board. Patient sodium on presentation is 121. Last repeated sodium is 119. Patient is lying sodium is usually the 130s to 137. He did have a few episodes of 125 on t he 05/05/2020. Review of Systems Review of system: The 12 point system was reviewed and apparent positive and negative per HPI. 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, COPD, history of tracheostomy tube insertion, history of PEG tube insertion, history of hyponatremia, COPD, seizure disorder and left seizure was more than 5 years ago, acid reflux, chronic hypotension Last Myocardial Infarction Date:: 2014 History of Any Multi-Drug Resistant Organisms: None Reported Past Surgical History: Heart Catheterization Additional Past Surgical History / Comment(s): trachestomy, oral surgery for cancer removal, PEG tube Past Anesthesia/Blood Transfusion Reactions: No Reported Reaction Additional Past Anesthesia/Blood Transfusion Reaction / Comment(s): adopted - no family hx Past Psychological History: Anxiety, Depression Additional Psychological History / Comment(s): beer through peg tube a couple times a week Smoking Status: Current every day smoker Past Alcohol Use History: Daily, Heavy Additional Past Alcohol Use History / Comment(s): smokes 1/2 PPD, has smoked since age 18 Past Drug Use History: None Reported - Past Family History Mother Family Medical History: Unable to Obtain Additional Family Medical History / Comment(s): pt is adopted Medications and Allergies Home Medications Medication Instructions Recorded Confirmed Type LORazepam [Ativan] 1 mg PEG/G-TUBE BID 07/18/17 07/30/20 History Valproic Acid Oral Soln [Depakene 500 mg PEG/G-TUBE Q8H 07/18/17 07/30/20 Histo ry Syrup] Aspirin EC [Ecotrin Low Dose] 81 mg PEG/G-TUBE DAILY 02/27/20 07/30/20 History Gabapentin [Neurontin] 300 mg PEG/G-TUBE TID 02/28/20 07/30/20 History Baclofen [Lioresal] 20 mg PEG/G-TUBE TID 05/05/20 07/30/20 History Metoprolol Tartrate [Lopressor] 12.5 mg PEG/G-TUBE BID 05/05/20 07/30/20 History Prochlorperazine [Compazine] 10 mg PEG/G-TUBE Q6H 05/05/20 07/30/20 History Folic Acid 1 mg PEG/G-TUBE DAILY 07/30/20 07/30/20 History Allergies Allergy/AdvReac Type Severity Reaction Status Date / Time No Known Allergies Allergy Verified 07/30/20 16:28 Physical Examination - Vital Signs Vital Signs: Vital Signs Temp Pulse Pulse Resp BP BP Pulse Ox 07/31/20 09:19 98.9 F 79 20 91/60 100 07/31/20 07:30 97.7 F 95 20 106/79 98 07/31/20 02:00 99.0 F 96 20 115/76 100 07/30/20 21:15 98 F 93 14 129/80 100 07/30/20 18:43 97.6 F 95 17 117/65 99 07/30/20 17:43 97.9 F 81 22 121/55 96 07/30/20 16:35 81 22 122/65 97 07/30/20 15:54 84 22 136/78 97 07/30/20 14:48 97.9 F 73 22 105/67 91 L Intake and Output 07/30/20 07/31/20 07/31/20 22:59 06:59 14:59 Output Total 1300 900 Balance -1300 -900 Output: Urine 1300 400 Stool 500 Other: Voiding Method Urinal # Voids 4 2 Weight 68.039 kg 68.039 kg GENERAL: The patient is lying in bed and is not in acute distress. CHEST: The heart rate is regular rate rhythm. No murmurs to auscultation. LUNG: Clear to auscultation bilaterally no wheezing noted throughout. Has Trach tube. Not labored breathing. ABDOMEN/GI: Bowel sounds present in all 4 quadrants. No tenderness to palpation throughout. Positive PEG tube. NEUROLOGICAL: Higher mental function: The patient is awake, alert, oriented to self, place and time. Patient is following commands. No aphasia and no neglect. Cranial nerves: The pupils are round, equal and reactive to light. Visual carrillo are full to confrontation throughout. Extraocular movement is intact no nystagmus is noted. Facial sensation is normal to touch throughout. The facial strength is normal throughout. Hearing is normal bilaterally to hand rub. Tongue is midline and moved [id number] without any difficulty. +ve mild dysarthria. Shoulder shrug is normal bilaterally. Motor: Gait is deferred because of right hip pain. The strength is limited over the right lower extremity because of pain but was able to dorsiflex/plantarflex ankle. Otherwise 5 over 5 throughout. Normal tone and bulk. Cerebellum: Normal finger to nose bilaterally. Sensation: Sensation is normal to touch throughout. Reflexes (right/left): Unable to assess right lower extremity (patellar and ankles) since patient refused because of pain. Otherwsie 2+ throughout except left ankle 1+. Plantars are mute bilaterally. Results Erickson virus is not detected - Laboratory Findings CBC and BMP: 07/31/20 08:16 07/31/20 17:02 Abnormal Lab Findings: Abnormal Labs 07/30/20 07/30/20 07/30/20 15:18 15:18 15:18 RBC 3.43 L Hgb 11.2 L Hct 32.8 L Plt Count 44 L Lymphocytes # 0.5 L Sodium 121 L Potassium Chloride 87 L BUN 8 L Creatinine 0.47 L C-Reactive Protein 59.2 H TSH 10.800 H 07/30/20 07/30/20 07/31/20 20:36 23:58 08:16 RBC 3.46 L Hgb 11.2 L Hct 33.4 L Plt Count 49 L Lymphocytes # 0.5 L Sodium 120 L 119 L* Potassium 5.3 H Chloride 86 L 83 L BUN Creatinine C-Reactive Protein TSH Assessment and Plan Assessment: This is a 60-year-old gentleman with medical history of alcohol withdrawl seizure that presented emergency department on 07/30/2020 regarding right hip pain from a fall. Acute Hyponatremia possibly the SIADH one of the possibilities is Depakote History of alcohol withdrawl seizure (per last seizure was 5 years ago) Cervical spondylosis Neuropathy Acute right hip fracture following fall Squamous cell carcinoma of oral cavity in 2015 status post tracheostomy Dysarthria due history of oral cancer s/p trach Status post PEG tube History of alcohol use Plan: * According to the and the patient had history of alcohol withdrawal seizures and he hasn't had a seizure in 5 years. She's not sure what the Depakote use for she thinks it for mood stabilizing disorder. As the primary concern about SIADH from Depakote which the Depakote does cause SIADH. Primary team already discontinued Depakote. I would like to start the patient on Vimpat 50 mg 1 tablet twice a day for seizure prophylaxis. I know the patient has not had any seizures in at least last 5 years but I would like the patient to follow up with outpatient neurologist and to taper down on the seizure medication down the line. * Recommend MRI of the cervical spine when the patient is stable for MRI especially that he had cervical spondylosis and the it's reported it's more than his age. I would like to rule out myelopathy from disc herniation. * Orthopedic team is on board. * I ordered vitamin B12, folate to rule out any underlying causes of his peripheral neuropathy. * Physical therapy and occupation therapy is on board. * The plan was discussed with the patient's via phone and the primary team. Dr. Longoria will provide neurology coverage over this weekend. Thank You for the consultation. Cedric Mitchell M.D. Neuro-hospitalist Time with Patient: Greater than 30
--- NOTE | 2020-07-31 15:30 | CONS ---
CONSULTATION REASON FOR CONSULT: Hyponatremia. HISTORY OF PRESENT ILLNESS: The patient is a 60-year-old male with history of oral cancer and is status post trach and PEG. He was admitted to the hospital with a history of fall as he was trying to get out of bed. He did not lose consciousness. He states he has been weak. His serum sodium was 121 on initial admission. It decreased to 120 and last night it was at 119. The patient was maintained on normal saline. Sodium from this morning is currently pending. The patient denies any significant numbness or tingling. He states he has not been using water in his tube feedings but apparently he uses ETOH down the feeding tube. LABS: Review of his previous labs show serum sodium of 137 on 05/07/2020. Urine osmolality was 378. Blood pressure has been on the lower side with systolic 115-106 mmHg. Currently patient denies any significant lower extremity edema. PAST MEDICAL HISTORY: History of oral cancer, which was squamous cell carcinoma, status post trach and PEG. History of seizure disorder, history of chronic hypotension, history of gastroesophageal reflux disease, COPD. PAST SURGICAL HISTORY: Cardiac catheterization, trach and PEG. SOCIAL HISTORY: Patient is a current everyday smoker through his trach and he drinks alcohol on a daily basis through his PEG tube. REVIEW OF SYSTEMS: As per HPI. Other systems negative. MEDICATIONS: Medications prior to admission included Ativan, Depakote, Neurontin, aspirin, Lopressor, Compazine, folic acid. ALLERGIES: NONE. PHYSICAL EXAMINATION: Patient is comfortable, awake, not in any acute distress. Alert and oriented x3. He is cachectic, currently with trach and PEG. Blood pressure was 91/60, heart rate 79 per minute. He is afebrile. EXAMINATION OF THE HEART: S1 and S2. EXAMINATION OF LUNGS: Bilateral breath sounds are heard. ABDOMEN: Soft, non-tender. Cachectic. Examination of lower extremities shows no evidence of edema. CHAINSTITCH SEAT JOINER exam is grossly intact. LABS: Labs show sodium 119, potassium 3.8 yesterday, chloride 83, hemoglobin 11.2 g/dL. ASSESSMENT: 1. Hyponatremia, possibly syndrome of inappropriate antidiuretic hormone, as his urine osmolality is elevated. It looks like the serum sodium worsened with saline. However, there are reports that patient did not get the saline throughout the night. I will anyway hold off on the saline for now. We will check a STAT sodium now and then proceed from there. At this time patient's blood pressure is low; therefore I will order sodium chloride tablets. The patient states that he has not been using any free water through his tube feedings. He does consume a lot of alcohol, although exact amount is not known. His urine osmolality is not too low; in fact, it is slightly on the higher side. TSH is significantly elevated, which is also possibly contributing to the hyponatremia. A cortisol level will be ordered as well. 2. Mild hyperkalemia, currently improved. I am not sure if those labs were accurate because a repeat potassium was 3.8 about 3 hours later. 3. History of oral squamous cell cancer, status post trach and PEG. 4. Nicotine abuse. 5. Alcohol abuse. 6. Peripheral neuropathy. 7. Possible aspiration pneumonia. 8. History of fall. PLAN: Hold off on the normal saline for now. Check sodium STAT. Add sodium chloride tabs and repeat sodium later on today. Encourage increased oral protein intake. Hold off on any free water down the feeding tube. Patient is advised to decrease his use of alcohol as well. Thank you for this consultation. Will continue to follow the patient with you during his hospitalization. MMODL / IJN: [id number] / [id number]
[2020-07-31] MEDS: LACOSAMIDE 50 MG TABLET PEG/G-TUBE SCH ×2 (15:53→21:33)
[2020-07-31 17:43] LABS: African American GFR (CKD) 137.5 (60.0-200.0); Calcium 8.5 mg/dL (8.7-10.3); Carbon Dioxide 26.7 mmol/L (21.6-31.8); Potassium 4.1 mmol/L (3.5-5.5)
[2020-07-31 17:43] LABS: African American GFR (CKD) >90 (>60 ml/min/1.73 sqM); Anion Gap 6 mmol/L; Blood Urea Nitrogen 16 mg/dL (9-20); Calcium 8.4 mg/dL (8.4-10.2); Carbon Dioxide 22 mmol/L (22-30); Chloride 90 mmol/L (98-107); Glucose 86 mg/dL (74-99); Non-African American GFR(CKD) >90 (>60 ml/min/1.73 sqM)
[2020-07-31 17:45] LABS: Potassium 5.2 mmol/L (3.5-5.1)
[2020-07-31 17:47] LABS: Sodium 118 mmol/L (137-145)
[2020-07-31 17:58] LABS: Non-African American GFR(CKD) 118.6 (60.0-200.0)
[2020-07-31] MEDS ORDERED: LORazepam 1 MG TAB PEG/G-TUBE PRN (18:15)
--- NOTE | 2020-07-31 18:30 | P.CNPUL ---
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 The patient needed his procedures after he underwent surgical resection with oral reconstructive surgery. The patient is known to have other comorbidities including COPD, seizure disorder and history of depression. His last hospitalization was back in April 2020 when the patient came into the hospital because of purulent discharge from his tracheostomy tube in addition to significant hyponatremia that was assumed to be excessive free water ingestion through his PEG tube. At that time, the patient had an aerobic infection and he was treated with Unasyn and his sodium was corrected and the patient was discharged. The patient came back to the emergency department yesterday for right hip pain. He is still poor historian. He allegedly got up and fell on the right side landing on his right hip. No head trauma. No neck trauma. He is quite debilitated and has a poor baseline performance and functional status. Further investigation in the emergency department included a CAT scan of the head and C-spine that showed no acute abnormalities. X-ray of the hip and the pelvis showed acute process cervical fracture of the femoral neck of the right femur. There was also demineralization. Underlying or the overlying soft tissue was none remarkable.. Chest x-ray showed focal infiltrates in the right midlung in the right lower lung area. No leukocytosis. Coagulation profile within normal limits. His sodium level was 121. Renal function was normal. The alvarez virus/Covid 19 screen came back negative. Orthopedic surgery was consulted. His EKG showed no acute abnormalities and was essentially unremarkable with a normal sinus rhythm. The patient is currently on trach collar with 8 L of oxygen with an FiO2 of 35% with a pulse ox of 97-99%. He was given a dose of cefepime in the emergency department he was hospitalized. On today's evaluation, the patient was seen by nephrology. Hyponatremia was addressed. Note that overnight the patient receiv ed normal saline and since then the patient's sodium has dropped further. 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 The patient was given sodium chloride tablets. The patient stated that he was not using free water through his PEG. He does consume a lot of alcohol and the exact amount is not known. The normal saline was stopped. Fluid restriction was implemented. Mother the patient is also on Depakote which could possibly contribute to the hyponatremia. The patient will be also seen by neurology regarding the utility of Depakote his condition. Review of Systems For the above-mentioned reason. Most of the positive findings were mentioned above in history of present illness. Constitutional: Reports fatigue, Reports poor appetite, Reports weakness, Reports weight loss Eyes: denies as per HPI, denies blurred vision, denies bulging eye, denies decreased vision, denies diplopia, denies discharge, denies dry eye, denies irritation, denies itching, denies pain, denies photophobia, denies loss of peripheral vision, denies loss of vision, denies tunnel vision/blind spots Ears: deny: decreased hearing, ear discharge, earache, tinnitus Ears, nose, mouth and throat: Reports as per HPI (Patient is a tracheostomy tube. The patient has oral squamous cell carcinoma) Breasts: absent: as per HPI, gynecomastia Respiratory: Reports as per HPI (Patient has a tracheostomy), Reports dyspnea Gastrointestinal: Reports as per HPI (PEG tube feeding for enteral nutrition) Genitourinary: Reports as per HPI Musculoskeletal: Reports fractures, Reports frequent falls Musculoskeletal: absent: ankle pain, ankle stiffness, ankle swelling Integumentary: Reports as per HPI, Reports wounds Neurological: Reports as per HPI Psychiatric: Reports as per HPI Endocrine: Reports as per HPI, Reports fatigue Hematologic/Lymphatic: Reports as per HPI Allergic/Immunologic: Reports as per HPI Past Medical History Past Medical History: Cancer, COPD, GERD/Reflux, Myocardial Infarction ([place]), Seizure Disorder Additional Past Medical History / Comment(s): Squamous cell carcinoma of the oral cavity, COPD, history of tracheostomy tube insertion, history of PEG tube insertion, history of hyponatremia, COPD, seizure disorder and left seizure was more than 5 years ago, acid reflux, chronic hypotension Last Myocardial Infarction Date:: 2014 History of Any Multi-Drug Resistant Organisms: None Reported Past Surgical History: Heart Catheterization Additional Past Surgical History / Comment(s): trachestomy, oral surgery for c ancer removal, PEG tube Past Anesthesia/Blood Transfusion Reactions: No Reported Reaction Additional Past Anesthesia/Blood Transfusion Reaction / Comment(s): adopted - no family hx Past Psychological History: Anxiety, Depression Additional Psychological History / Comment(s): beer through peg tube a couple times a week Smoking Status: Current every day smoker Past Alcohol Use History: Daily, Heavy Additional Past Alcohol Use History / Comment(s): smokes 1/2 PPD, has smoked since age 18 Past Drug Use History: None Reported - Past Family History Mother Family Medical History: Unable to Obtain Additional Family Medical History / Comment(s): pt is adopted Medications and Allergies Home Medications Medication Instructions Recorded Confirmed Type LORazepam [Ativan] 1 mg PEG/G-TUBE BID 07/18/17 07/30/20 History Valproic Acid Oral Soln [Depakene 500 mg PEG/G-TUBE Q8H 07/18/17 07/30/20 History Syrup] Aspirin EC [Ecotrin Low Dose] 81 mg PEG/G-TUBE DAILY 02/27/20 07/30/20 History Gabapentin [Neurontin] 300 mg PEG/G-TUBE TID 02/28/20 07/30/20 History Baclofen [Lioresal] 20 mg PEG/G-TUBE TID 05/05/20 07/30/20 History Metoprolol Tartrate [Lopressor] 12.5 mg PEG/G-TUBE BID 05/05/20 07/30/20 History Prochlorperazine [Compazine] 10 mg PEG/G-TUBE Q6H 05/05/20 07/30/20 History Folic Acid 1 mg PEG/G-TUBE DAILY 07/30/20 07/30/20 History Allergies Allergy/AdvReac Type Severity Reaction Status Date / Time No Known Allergies Allergy Verified 07/30/20 16:28 Physical Exam Vitals: Vital Signs Temp Pulse Pulse Resp BP BP Pulse Ox 07/30/20 18:43 97.6 F 95 17 117/65 99 07/30/20 17:43 97.9 F 81 22 121/55 96 07/30/20 16:35 81 22 122/65 97 07/30/20 15:54 84 22 136/78 97 07/30/20 14:48 97.9 F 73 22 105/67 91 L Intake and Output 07/30/20 07/30/20 07/30/20 06:59 14:59 22:59 Output Total 1300 Balance -1300 Output: Urine 1300 Other: # Voids 3 Weight 68.039 kg 68.039 kg General Impression: Alert and oriented x3, not in acute distress, cachexic, and the patient has an extensive surgical scar over his face with possibly a muscle flap. HEENT: Normocephalic atraumatic, extra-ocular movements intact, pupils equal and reactive to light bilaterally, mucous membranes moist, tracheostomy in place and this is a Shiley tracheostomy tube. Cardiovascular: Cardiac exam revealed the PMI to be normally situated and sized. The rhythm was regular and no extrasystoles were noted during several minutes of auscultation. The first and second heart sounds were normal and physiologic splitting of the second heart sound was noted. There were no murmurs, rubs, clicks, or gallops. Chest: Able to complete full sentences, no retractions, no tachypnea Abdomen: abdomen soft, non-tender, non-distended, no organomegaly, PEG tube is dry clean and intact Musculoskeletal: Pulses present and equal in all extremities, no peripheral edema Right lower extremity: Minimal pain with flexion at the right hip, skin over the right hip shows no trauma signs. Right leg is not shortened compared to the left Motor: no focal deficits noted Neurological: CN II-XII grossly intact, no focal motor or sensory deficits noted Skin: Intact with no visualized rashes Psych: Normal affect and mood Results - Laboratory Findings CBC and BMP: 07/31/20 08:16 07/31/20 17:02 ABG WBC 7.6 k/uL (3.8-10.6) 07/30/20 15:18 RBC 3.43 m/uL (4.30-5.90) L 07/30/20 15:18 Hgb 11.2 gm/dL (13.0-17.5) L 07/30/20 15:18 Hct 32.8 % (39.0-53.0) L 07/30/20 15:18 MCV 95.5 fL (80.0-100.0) 07/30/20 15:18 MCH 32.7 pg (25.0-35.0) 07/30/20 15:18 MCHC 34.2 g/dL (31.0-37.0) 07/30/20 15:18 RDW 12.8 % (11.5-15.5) 07/30/20 15:18 Plt Count 44 k/uL (150-450) L 07/30/20 15:18 MPV 9.3 07/30/20 15:18 Neutrophils % 85 % 07/30/20 15:18 Lymphocytes % 7 % 07/30/20 15:18 Monocytes % 6 % 07/30/20 15:18 Eosinophils % 1 % 07/30/20 15:18 Basophils % 0 % 07/30/20 15:18 Neutrophils # 6.5 k/uL (1.3-7.7) 07/30/20 15:18 Lymphocytes # 0.5 k/uL (1.0-4.8) L 07/30/20 15:18 Monocytes # 0.4 k/uL (0-1.0) 07/30/20 15:18 Eosinophils # 0.1 k/uL (0-0.7) 07/30/20 15:18 Basophils # 0.0 k/uL (0-0.2) 07/30/20 15:18 Manual Slide Review Performed 07/30/20 15:18 PT 11.1 sec (9.0-12.0) 07/30/20 15:18 INR 1.1 (<1.2) 07/30/20 15:18 APTT 28.0 sec (22.0-30.0) 07/30/20 15:18 Sodium 120 mmol/L (137-145) L 07/30/20 20:36 Potassium 5.3 mmol/L (3.5-5.1) H 07/30/20 20:36 Chloride 86 mmol/L (98-107) L 07/30/20 20:36 Carbon Dioxide 24 mmol/L (22-30) 07/30/20 20:36 Anion Gap 10 mmol/L 07/30/20 20:36 BUN 8 mg/dL (9-20) L 07/30/20 15:18 Creatinine 0.47 mg/dL (0.66-1.25) L 07/30/20 15:18 Est GFR (CKD-EPI)AfAm >90 (>60 ml/min/1.73 sqM) 07/30/20 15:18 Est GFR (CKD-EPI)NonAf >90 (>60 ml/min/1.73 sqM) 07/30/20 15:18 Glucose 97 mg/dL (74-99) 07/30/20 15:18 Calcium 8.5 mg/dL (8.4-10.2) 07/30/20 15:18 Magnesium 1.8 mg/dL (1.6-2.3) 07/30/20 15:18 Total Bilirubin 0.5 mg/dL (0.2-1.3) 07/30/20 15:18 AST 24 U/L (17-59) 07/30/20 15:18 ALT 12 U/L (4-49) 07/30/20 15:18 Alkaline Phosphatase 56 U/L (38-126) 07/30/20 15:18 Troponin I <0.012 ng/mL (0.000-0.034) 07/30/20 15:18 C-Reactive Protein 59.2 mg/L (<10.0) H 07/30/20 15:18 Total Protein 7.3 g/dL (6.3-8.2) 07/30/20 15:18 Albumin 3.6 g/dL (3.5-5.0) 07/30/20 15:18 TSH 10.800 mIU/L (0.465-4.680) H 07/30/20 15:18 Free T4 0.96 ng/dL (0.78-2.19) 07/30/20 15:18 Urine Osmolality 378 mosm/kg (50-1400) 07/30/20 20:15 Coronavirus (PCR) Not Detected (Not Detectd) 07/30/20 15:18 PT/INR, D-dimer PT 11.1 sec (9.0-12.0) 07/30/20 15:18 INR 1.1 (<1.2) 07/30/20 15:18 Abnormal lab findings: Abnormal Labs 07/30/20 07/30/20 07/30/20 15:18 15:18 15:18 RBC 3.43 L Hgb 11.2 L Hct 32.8 L Plt Count 44 L Lymphocytes # 0.5 L Sodium 121 L Potassium Chloride 87 L BUN 8 L Creatinine 0.47 L C-Reactive Protein 59.2 H TSH 10.800 H 07/30/20 20:36 RBC Hgb Hct Plt Count Lymphocytes # Sodium 120 L Potassium 5.3 H Chloride 86 L BUN Creatinine C-Reactive Protein TSH - Diagnostic Findings Chest x-ray: image reviewed Assessment and Plan Plan: 1 fall with right sided hip fracture, and the x-ray confirmed the fracture and the CAT scan of the hip also showed a subcapital right femoral neck fracture impacted by around 9 mm. There is a 9 mm of anterior displacement and angu lation. 2 right lung pneumonia suspected with new pulmonary infiltrate/opacity involving the right lower lobe and the right middle lobe 3 hyponatremia-, possibly of due to an underlying SIADH with a possibility of Depakote also contributing to this episodic low sodium. The patient apparently drinks alcohol and he denies excessive free water through his PEG low he denied during this current admission. Pneumonia couldn't be also potentially contributing to his SIADH. The patient was given normal saline without any improvement. He is currently on salt tablets in addition to fluid restriction. 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 5 tracheostomy with a recent hospitalization for tracheobronchitis, April 2020 6 PEG tube with enteral feeding for nutritional support 7 history of Sacral decubitus ulcer 8 COPD 9 Seizure disorder 10 Gastric reflux disease Plan Proceed with fluid restriction Salt tablets Monitor sodium level and nephrology is on the case Obtain sputum Gram stain and culture Start the patient on IV cefepime 2 g every 12 hours Neurology consultation regarding Depakote and its utility and possibility of switching this to another antiepileptic medication Orthopedic surgery regarding the right hip fracture Resume her medications We'll continue to follow Time with Patient: Greater than 30
[2020-07-31 20:28] LABS: Glucose,Whole Blood 82 mg/dL (75-99)
[2020-07-31] MEDS: SODIUM CHLORIDE TAB 1 GM TAB PO SCH (21:33)
[2020-08-01] MEDS: PROCHLORPERAZINE 10 MG TAB PEG/G-TUBE SCH ×4 (01:15→21:43)
[2020-08-01] MEDS: GABAPENTIN 300 MG CAP PEG/G-TUBE SCH ×4 (05:26→21:43)
[2020-08-01 07:38] LABS: Basophils % (A) 0 %; Eosinophils % (A) 1 %; HCT 30.5 % (39.0-53.0); HGB 10.5 gm/dL (13.0-17.5); Lymphocytes # (A) 0.5 k/uL (1.0-4.8); Lymphocytes % (A) 8 %; MCH 33.4 pg (25.0-35.0); MCHC 34.5 g/dL (31.0-37.0); MCV 96.8 fL (80.0-100.0); Mean Platelet Volume 8.7; Monocytes # (A) 0.3 k/uL (0-1.0); Monocytes % (A) 6 %; Neutrophils # (A) 4.8 k/uL (1.3-7.7); Neutrophils % (A) 83 %; RBC 3.15 m/uL (4.30-5.90); RDW 12.3 % (11.5-15.5); WBC 5.8 k/uL (3.8-10.6)
[2020-08-01 07:41] LABS: Platelet Count 50 k/uL (150-450)
[2020-08-01] MEDS: BACLOFEN 10 MG TAB PEG/G-TUBE SCH ×3 (08:20→21:43)
[2020-08-01] MEDS: PANTOPRAZOLE 40 MG/10 ML VIAL IV SCH (08:20)
[2020-08-01] MEDS: METOPROLOL TARTRATE 12.5 MG TAB PEG/G-TUBE SCH (08:20)
[2020-08-01] MEDS: SODIUM CHLORIDE TAB 1 GM TAB PO SCH ×2 (08:21→21:44)
[2020-08-01] MEDS: CYANOCOBALAMIN 500 MCG TAB PO SCH ×2 (08:21)
[2020-08-01] MEDS: FOLIC ACID 1 MG TAB PEG/G-TUBE SCH (08:21)
[2020-08-01] MEDS: ASPIRIN 81 MG PEG/G-TUBE SCH (08:21)
[2020-08-01] MEDS: LACOSAMIDE 50 MG TABLET PEG/G-TUBE SCH ×2 (08:21→21:43)
[2020-08-01] MEDS: THIAMINE 100 MG TAB PO SCH (08:22)
[2020-08-01] MEDS: NICOTINE 21MG/24HR PATCH TRANSDERM SCH (08:26)
[2020-08-01] MEDS: CEFEPIME 2 GM in SODIUM CHLORIDE 0.9% 100 ML IVPB SCH ×2 (08:26→21:44)
[2020-08-01] MEDS ORDERED: SODIUM CHLORIDE 0.9% 500 ML 500 ML IV ONE ×3 (10:09→12:51)
--- NOTE | 2020-08-01 11:49 | P.PN ---
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 The patient needed his procedures after he underwent surgical resection with oral reconstructive surgery. The patient is known to have other comorbidities including COPD, seizure disorder and history of depression. His last hospitalization was back in April 2020 when the patient came into the hospital because of purulent discharge from his tracheostomy tube in addition to significant hyponatremia that was assumed to be excessive free water ingestion through his PEG tube. At that time, the patient had an aerobic infection and he was treated with Unasyn and his sodium was corrected and the patient was discharged. The patient came back to the emergency department yesterday for right hip pain. He is still poor historian. He allegedly got up and fell on the right side landing on his right hip. No head trauma. No neck trauma. He is quite debilitated and has a poor baseline performance and functional status. Further investigation in the emergency department included a CAT scan of the head and C-spine that showed no acute abnormalities. X-ray of the hip and the pelvis showed acute process cervical fracture of the femoral neck of the right femur. There was also demineralization. Underlying or the overlying soft tissue was none remarkable.. Chest x-ray showed focal infiltrates in the right midlung in the right lower lung area. No leukocytosis. Coagulation profile within normal limits. His sodium level was 121. Renal function was normal. The alvarez virus/Covid 19 screen came back negative. Orthopedic surgery was consulted. His EKG showed no acute abnormalities and was essentially unremarkable with a normal sinus rhythm. The patient is currently on trach collar with 8 L of oxygen with an FiO2 of 35% with a pulse ox of 97-99%. He was given a dose of cefepime in the emergency department he was hospitalized. On today's evaluation, the patient was seen by nephrology. Hyponatremia was addressed. Note that overnight the patient received normal saline and since then the patient's sodium has dropped further. 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 The patient was given sodium chloride tablets. The patient stated that he was not using free water through his PEG. He does consume a lot of alcohol and the exact amount is not known. The normal saline was stopped. Fluid restriction was implemented. Mother the patient is also on Depakote which could possibly contribute to the hyponatremia. The patient will be also seen by neurology regarding the utility of Depakote his condition. On 08/01/2020, the patient's sodium level is not back yet from the morning blood work. He is currently being restricted on IV fluids. He was given salt tablets. Mental status is adequate and the patient is able to communicate. He still having respiratory secretions and the patient is currently on IV cefepime. No nausea. No vomiting. No diarrhea. Orthopedic surgeries on the case balance standby regarding the need for hip surgery. No nausea. No vomiting. No diarrhea. No abdominal pain. Objective - Vital Signs Vital signs: Vital Signs Temp 98.3 F 08/01/20 09:24 Pulse 68 08/01/20 10:52 Resp 17 08/01/20 09:24 BP 84/48 08/01/20 11:00 Pulse Ox 96 08/01/20 09:24 Intake & Output 07/31/20 08/01/20 08/01/20 18:59 06:59 18:59 Intake Total 1130 Balance 1130 Weight 68.039 kg Intake: Intake, IV Titration 850 Amount Cefepime 2 gm In Sodium 100 Chloride 0.9% 100 ml @ 25 mls/hr IVPB Q12HR [facility] Rx #:[id number] Sodium Chloride 0.9% 1, 750 000 ml @ 75 mls/hr IV . [id number] [facility] Rx#:[id number] Tube Feeding 250 Other 30 Other: Voiding Method Urinal - Exam General Impression: Alert and oriented x3, not in acute distress, cachexic, and the patient has an extensive surgical scar over his face with possibly a muscle flap. HEENT: Normocephalic atraumatic, extra-ocular movements intact, pupils equal and reactive to light bilaterally, mucous membranes moist, tracheostomy in place and this is a Shiley tracheostomy tube. Cardiovascular: Cardiac exam revealed the PMI to be normally situated and sized. The rhythm was regular and no extrasystoles were noted during several minutes of auscultation. The first and second heart sounds were normal and physiologic splitting of the second heart sound was noted. There were no murmurs, rubs, clicks, or gallops. Chest: Able to complete full sentences, no retractions, no tachypnea Abdomen: abdomen soft, non-tender, non-distended, no organomegaly, PEG tube is dry clean and intact Musculoskeletal: Pulses present and equal in all extremities, no peripheral edema Right lower extremity: Minimal pain with flexion at the right hip, skin over the right hip shows no trauma signs. Right leg is not shortened compared to the left Motor: no focal deficits noted Neurological: CN II-XII grossly intact, no focal motor or sensory deficits noted Skin: Intact with no visualized rashes Psych: Normal affect and mood - Labs CBC & Chem 7: 08/01/20 07:05 07/31/20 17:02 Labs: Abnormal Lab Results - Last 24 Hours (Table) 07/31/20 07/31/20 08/01/20 Range/Units 08:16 17:02 07:05 RBC 3.15 L (4.30-5.90) m/uL Hgb 10.5 L (13.0-17.5) gm/dL Hct 30.5 L (39.0-53.0) % Plt Count 50 L (150-450) k/uL Lymphocytes # 0.5 L (1.0-4.8) k/uL Sodium 119 L* 118 L* (135-145) mmol/L Potassium 5.2 H (3.5-5.1) mmol/L Chloride 86 L 90 L (96-109) mmol/L Creatinine 0.5 L 0.51 L (0.6-1.5) mg/dL BUN/Creatinine Ratio 24.00 H (12.00-20.00) Ratio Calcium 8.5 L (8.7-10.3) mg/dL Microbiology - Last 24 Hours (Table) 07/31/20 21:14 Gram Stain - Preliminary Sputum Sputum Culture - Preliminary 07/30/20 16:38 Blood Culture - Preliminary Blood No Growth after 24 hours Assessment and Plan Plan: 1 fall with right sided hip fracture, and the x-ray confirmed the fracture and the CAT scan of the hip also showed a subcapital right femoral neck fracture impacted by around 9 mm. There is a 9 mm of anterior displacement and angulation. She is awaiting surgery. He has not been cleared for surgery. Sodium level remains low. 2 right lung pneumonia suspected with new pulmonary infiltrate/opacity involving the right lower lobe and the right middle lobe, still having this for secretions through his tracheostomy tube 3 hyponatremia-, possibly of due to an underlying SIADH with a possibility of Depakote also contributing to this episodic low sodium. The patient apparently drinks alcohol and he denies excessive free water through his PEG low he denied during this current admission. Pneumonia couldn't be also potentially contributing to his SIADH. The patient was given normal saline without any improvement. He is currently on salt tablets in addition to fluid restriction. Awaiting follow-up sodium levels from today. Continue fluid restriction. 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 5 tracheostomy with a recent hospitalization for tracheobronchitis, April 2020 6 PEG tube with enteral feeding for nutritional support 7 history of Sacral decubitus ulcer 8 COPD 9 Seizure disorder 10 Gastric reflux disease Plan Proceed with fluid restriction Salt tablets Monitor sodium level and nephrology is on the case awaiting labs from today Obtain sputum Gram stain and culture and the results are still pending for now Start the patient on IV cefepime 2 g every 12 hours Neurology consultation regarding Depakote and its utility and possibility of switching this to another antiepileptic medication, the patient was taken off the Depakote and he was switched Vimpat Orthopedic surgery regarding the right hip fracture Resume her medications We'll continue to follow
[2020-08-01 12:44] LABS: African American GFR (CKD) 127.6 (60.0-200.0); Anion Gap 10.1 mmol/L (4.00-12.00); BUN/Creat Ratio 23.33 Ratio (12.00-20.00); Calcium 8.6 mg/dL (8.7-10.3); Carbon Dioxide 20.9 mmol/L (21.6-31.8); Non-African American GFR(CKD) 110.1 (60.0-200.0); Potassium 3.6 mmol/L (3.5-5.5)
[2020-08-01] MEDS: MORPHINE SULFATE 4 MG/ML SYRINGE IV PRN (13:39)
[2020-08-01 14:35] LABS: Hemoglobin A1C 5.1 % (4.0-6.0)
--- NOTE | 2020-08-01 14:53 | P.PN ---
Subjective Progress Note Date: 08/01/20 Follow-up for hyponatremia. Objective - Vital Signs Vital signs: Vital Signs Temp 97.5 F L 08/01/20 13:48 Pulse 74 08/01/20 13:48 Resp 18 08/01/20 13:48 BP 91/52 08/01/20 13:48 Pulse Ox 93 L 08/01/20 13:48 Intake & Output 07/31/20 08/01/20 08/01/20 18:59 06:59 18:59 Intake Total 1130 280 Balance 1130 280 Weight 68.039 kg Intake: Intake, IV Titration 850 Amount Cefepime 2 gm In Sodium 100 Chloride 0.9% 100 ml @ 25 mls/hr IVPB Q12HR [facility] Rx #:[id number] Sodium Chloride 0.9% 1, 750 000 ml @ 75 mls/hr IV . [id number] [facility] Rx#:[id number] Tube Feeding 250 250 Other 30 30 Other: Voiding Method Urinal - Exam Limited secondary to COVID 19 pandemic and to limit PPE. - Labs CBC & Chem 7: 08/01/20 07:05 08/01/20 07:05 Labs: Abnormal Lab Results - Last 24 Hours (Table) 07/31/20 07/31/20 08/01/20 Range/Units 08:16 17:02 07:05 RBC 3.15 L (4.30-5.90) m/uL Hgb 10.5 L (13.0-17.5) gm/dL Hct 30.5 L (39.0-53.0) % Plt Count 50 L (150-450) k/uL Lymphocytes # 0.5 L (1.0-4.8) k/uL Sodium 119 L* 118 L* (135-145) mmol/L Potassium 5.2 H (3.5-5.1) mmol/L Chloride 86 L 90 L (96-109) mmol/L Carbon Dioxide (21.6-31.8) mmol/L Creatinine 0.5 L 0.51 L (0.6-1.5) mg/dL BUN/Creatinine Ratio 24.00 H (12.00-20.00) Ratio Calcium 8.5 L (8.7-10.3) mg/dL 08/01/20 Range/Units 07:05 RBC (4.30-5.90) m/uL Hgb (13.0-17.5) gm/dL Hct (39.0-53.0) % Plt Count (150-450) k/uL Lymphocytes # (1.0-4.8) k/uL Sodium 125 L (135-145) mmol/L Potassium (3.5-5.1) mmol/L Chloride 94 L (96-109) mmol/L Carbon Dioxide 20.9 L (21.6-31.8) mmol/L Creatinine (0.6-1.5) mg/dL BUN/Creatinine Ratio 23.33 H (12.00-20.00) Ratio Calcium 8.6 L (8.7-10.3) mg/dL Microbiology - Last 24 Hours (Table) 07/31/20 21:14 Gram Stain - Preliminary Sputum Sputum Culture - Preliminary 07/30/20 16:38 Blood Culture - Preliminary Blood No Growth after 24 hours Assessment and Plan Assessment: #1 hyponatremia secondary to SIADH. #2 normal renal function #3 Squamous cell carcinoma of the oral cavity Plan: #1 sodium improving. Continue with salt tablets. #2 add tolvaptan 15mg by mouth once. #3 labs in the morning
[2020-08-01] MEDS ORDERED: TOLVAPTAN 15 MG 1/2 TABLET PO ONE (15:15)
--- NOTE | 2020-08-01 16:46 | P.PN ---
Subjective This is a pleasant 60 years old male who presents because of fall. He is patient of Dr. Mg. Patient gave me information also I talked to his miss Godfrey over the phone. Apparently the patient yesterday morning he fell while he was trying to get out of the bed without losing consciousness and he had his right hip area and imaging showing impacted right hip fracture, orthopedic team evaluated the patient and the planning to non-operative fixation. 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 His PCP Dr. Mg lowered his valproic acid about 7-8 months ago because of toxicity. He follows with Dr. Cardenas oncologist for his history of CANCER. He smokes about 1 pack per day and he drinks 1-2 beers of 24 ounces through his PEG tube. He eats and drinks through PEG tube, uses marijuana at times for his chronic back pain. MAPS was checked and he is and lorazepam 2 mg daily and gabapentin Sodium level has been requested in the morning but result isn't back yet still now, discussed with the staff and it looks like it is send out. We going to order another sodium stat cable 08/01/2020 Patient is awake and alert, no chest pain or dyspnea, no abdominal pain, he has minimal pain in his right hip area and he does not eat much of the pain medication. His blood pressure was running low today flex 70/40s, he received several boluses of normal saline with slight improvement, his metoprolol was held. However patient states that his systolic blood pressure usually runs on the low side like 90s Sodium improved today to 125 after change in his valproic acid to the patent Nephrology input is appreciated continue with sodium tablets and tolvaptan Patient currently continued on cefepime for his pneumonia. Review of Systems CONSTITUTIONAL: No fever, no malaise, no fatigue. HEENT: No recent visual problems or hearing problems. Denied any sore throat. CARDIOVASCULAR: No orthopnea, PND, no palpitations, no syncope. PULMONARY: No shortness of breath, no cough, no hemoptysis. GASTROINTESTINAL: No diarrhea, no nausea, no vomiting, no abdominal pain. Normoactive bowel sounds. NEUROLOGICAL: No headaches, no weakness, no numbness. Active Medications Generic Name Dose Route Start Last Admin Trade Name Freq PRN Reason Stop Dose Admin Acetaminophen 650 mg 07/30/20 16:32 Acetaminophen Tab 325 Mg Tab PO Q6HR PRN Mild Pain or Fever > 100.5 Aspirin 81 mg 07/31/20 09:00 08/01/20 08:21 Aspirin 81 Mg PEG/G-TUBE 81 mg DAILY ALEJO Administration Baclofen 20 mg 07/30/20 22:00 08/01/20 16:44 Baclofen 10 Mg Tab PEG/G-TUBE 20 mg TID ALEJO Administration Cyanocobalamin 500 mcg 07/31/20 23:15 08/01/20 08:21 Cyanocobalamin 500 Mcg Tab PO 500 mcg DAILY ALEJO Administration Folic Acid 1 mg 07/31/20 09:00 08/01/20 08:21 Folic Acid 1 Mg Tab PEG/G-TUBE 1 mg DAILY ALEJO Administration Gabapentin 300 mg 07/30/20 22:00 08/01/20 16:44 Gabapentin 300 Mg Cap PEG/G-TUBE 300 mg TID ALEJO Administration Cefepime HCl 2 gm/ Sodium 100 mls @ 25 mls/hr 07/31/20 09:00 08/01/20 08:26 Chloride IVPB 25 mls/hr Q12HR ALEJO Administration Lacosamide 50 mg 07/31/20 14:38 08/01/20 08:21 Lacosamide 50 Mg Tablet PEG/G-TUBE 50 mg BID ALEJO Administration Lorazepam 1 mg 07/31/20 18:15 07/31/20 21:28 Lorazepam 1 Mg Tab PEG/G-TUBE 1 mg BID PRN Administration Anxiety Morphine Sulfate 4 mg 07/30/20 16:32 08/01/20 13:39 Morphine Sulfate 4 Mg/Ml Syringe IV 4 mg Q4HR PRN Administration Severe Pain Naloxone HCl 0.2 mg 07/30/20 16:32 Naloxone 0.4 Mg/Ml 1 Ml Vial IV Q2M PRN Opioid Reversal Nicotine 1 patch 07/31/20 12:00 08/01/20 08:26 Nicotine 21mg/24hr Patch TRANSDERM 1 patch DAILY ALEJO Administration Ondansetron HCl 4 mg 07/30/20 16:32 Ondansetron 4 Mg/2 Ml Vial IVP Q8HR PRN Nausea And Vomiting Pantoprazole Sodium 40 mg 07/31/20 09:00 08/01/20 08:20 Pantoprazole 40 Mg/10 Ml Vial IV 40 mg DAILY ALEJO Administration Prochlorperazine Maleate 10 mg 07/30/20 19:15 08/01/20 13:38 Prochlorperazine 10 Mg Tab PEG/G-TUBE 10 mg Q6H ALEJO Administration Sodium Chloride 2 gm 07/31/20 19:30 08/01/20 08:21 Sodium Chloride Tab 1 Gm Tab PO 2 gm BID ALEJO Administration Thiamine HCl 100 mg 08/01/20 09:00 08/01/20 08:22 Thiamine 100 Mg Tab PO 100 mg DAILY ALEJO Administration Objective - Vital Signs Vital signs: Vital Signs Temp 97.5 F L 08/01/20 13:48 Pulse 74 08/01/20 13:48 Resp 18 08/01/20 13:48 BP 91/52 08/01/20 13:48 Pulse Ox 93 L 08/01/20 13:48 Intake & Output 07/31/20 08/01/20 08/01/20 18:59 06:59 18:59 Intake Total 1130 280 Balance 1130 280 Weight 68.039 kg Intake: Intake, IV Titration 850 Amount Cefepime 2 gm In Sodium 100 Chloride 0.9% 100 ml @ 25 mls/hr IVPB Q12HR [facility] Rx #:[id number] Sodium Chloride 0.9% 1, 750 000 ml @ 75 mls/hr IV . [id number] [facility] Rx#:[id number] Tube Feeding 250 250 Other 30 30 Other: Voiding Method Urinal - Exam GENERAL: The patient is alert and oriented x3, not in any acute distress. Well developed, well nourished. -HEENT: Pupils are round and equally reacting to light. EOMI. No scleral icterus. No conjunctival pallor. Normocephalic, atraumatic. No pharyngeal erythema. No thyromegaly. Mouth floor deformity from previous surgery CARDIOVASCULAR: S1 and S2 present. No murmurs, rubs, or gallops. -PULMONARY: Chest is clear to auscultation, no wheezing or crackles. Tracheostomy tube is in place and is neck collar ABDOMEN: Soft, nontender, nondistended, normoactive bowel sounds. No palpable organomegaly. MUSCULOSKELETAL: No joint swelling or deformity. -EXTREMITIES: No cyanosis, clubbing, or pedal edema. Right hip tenderness NEUROLOGICAL: Gross neurological examination did not reveal any focal deficits. SKIN: No rashes. No petechiae - Labs CBC & Chem 7: 08/01/20 07:05 08/01/20 07:05 Labs: Abnormal Lab Results - Last 24 Hours (Table) 07/31/20 07/31/20 08/01/20 Range/Units 08:16 17:02 07:05 RBC 3.15 L (4.30-5.90) m/uL Hgb 10.5 L (13.0-17.5) gm/dL Hct 30.5 L (39.0-53.0) % Plt Count 50 L (150-450) k/uL Lymphocytes # 0.5 L (1.0-4.8) k/uL Sodium 119 L* 118 L* (135-145) mmol/L Potassium 5.2 H (3.5-5.1) mmol/L Chloride 86 L 90 L (96-109) mmol/L Carbon Dioxide (21.6-31.8) mmol/L Creatinine 0.5 L 0.51 L (0.6-1.5) mg/dL BUN/Creatinine Ratio 24.00 H (12.00-20.00) Ratio Calcium 8.5 L (8.7-10.3) mg/dL 08/01/20 Range/Units 07:05 RBC (4.30-5.90) m/uL Hgb (13.0-17.5) gm/dL Hct (39.0-53.0) % Plt Count (150-450) k/uL Lymphocytes # (1.0-4.8) k/uL Sodium 125 L (135-145) mmol/L Potassium (3.5-5.1) mmol/L Chloride 94 L (96-109) mmol/L Carbon Dioxide 20.9 L (21.6-31.8) mmol/L Creatinine (0.6-1.5) mg/dL BUN/Creatinine Ratio 23.33 H (12.00-20.00) Ratio Calcium 8.6 L (8.7-10.3) mg/dL Microbiology - Last 24 Hours (Table) 07/31/20 21:14 Gram Stain - Preliminary Sputum Sputum Culture - Preliminary 07/30/20 16:38 Blood Culture - Preliminary Blood No Growth after 24 hours Assessment and Plan Assessment: -Fall with right hip fracture, with orthopedic team planning for non-operative reduction and fixation -Hyponatremia, 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 Monitor sodium closely. Put on fluid restriction. Nephrology consult -Peripheral neuropathy on valproic acid, hold valproic acid for now due to low sodium -Possible aspiration pneumonia with abnormal infiltrate in the right mid to lower lung, no respiratory symptoms. 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
[2020-08-02] MEDS: PROCHLORPERAZINE 10 MG TAB PEG/G-TUBE SCH ×4 (01:48→21:46)
[2020-08-02] MEDS: ACETAMINOPHEN TAB 325 MG TAB PO PRN ×3 (01:59→21:50)
[2020-08-02] MEDS: BACLOFEN 10 MG TAB PEG/G-TUBE SCH ×3 (07:56→21:46)
[2020-08-02] MEDS: LACOSAMIDE 50 MG TABLET PEG/G-TUBE SCH ×2 (07:56→21:47)
[2020-08-02] MEDS: ASPIRIN 81 MG PEG/G-TUBE SCH (07:56)
[2020-08-02] MEDS: FOLIC ACID 1 MG TAB PEG/G-TUBE SCH (07:57)
[2020-08-02] MEDS: THIAMINE 100 MG TAB PO SCH (07:57)
[2020-08-02] MEDS: GABAPENTIN 300 MG CAP PEG/G-TUBE SCH ×3 (07:57→21:48)
[2020-08-02] MEDS: CYANOCOBALAMIN 500 MCG TAB PO SCH (07:57)
[2020-08-02] MEDS: SODIUM CHLORIDE TAB 1 GM TAB PO SCH ×2 (07:57→21:47)
[2020-08-02] MEDS: PANTOPRAZOLE 40 MG/10 ML VIAL IV SCH (07:58)
[2020-08-02] MEDS: NICOTINE 21MG/24HR PATCH TRANSDERM SCH (07:58)
[2020-08-02] MEDS: CEFEPIME 2 GM in SODIUM CHLORIDE 0.9% 100 ML IVPB SCH ×2 (07:58→21:48)
[2020-08-02] MEDS: MIDODRINE 5 MG TAB PO SCH ×2 (09:27→16:53)
[2020-08-02 11:10] LABS: African American GFR (CKD) >90 (>60 ml/min/1.73 sqM); Anion Gap 3 mmol/L; Blood Urea Nitrogen 14 mg/dL (9-20); Calcium 8.7 mg/dL (8.4-10.2); Carbon Dioxide 25 mmol/L (22-30); Chloride 110 mmol/L (98-107); Glucose 94 mg/dL (74-99); Non-African American GFR(CKD) >90 (>60 ml/min/1.73 sqM); Potassium 3.6 mmol/L (3.5-5.1); Sodium 138 mmol/L (137-145)
[2020-08-02 11:32] LABS: HCT 26.8 % (39.0-53.0); MCH 33.2 pg (25.0-35.0); MCHC 33.4 g/dL (31.0-37.0); MCV 99.4 fL (80.0-100.0); Mean Platelet Volume 8.9; RDW 12.5 % (11.5-15.5); WBC 4.7 k/uL (3.8-10.6)
--- NOTE | 2020-08-02 11:33 | P.PN ---
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 The patient needed his procedures after he underwent surgical resection with oral reconstructive surgery. The patient is known to have other comorbidities including COPD, seizure disorder and history of depression. His last hospitalization was back in April 2020 when the patient came into the hospital because of purulent discharge from his tracheostomy tube in addition to significant hyponatremia that was assumed to be excessive free water ingestion through his PEG tube. At that time, the patient had an aerobic infection and he was treated with Unasyn and his sodium was corrected and the patient was discharged. The patient came back to the emergency department yesterday for right hip pain. He is still poor historian. He allegedly got up and fell on the right side landing on his right hip. No head trauma. No neck trauma. He is quite debilitated and has a poor baseline performance and functional status. Further investigation in the emergency department included a CAT scan of the head and C-spine that showed no acute abnormalities. X-ray of the hip and the pelvis showed acute process cervical fracture of the femoral neck of the right femur. There was also demineralization. Underlying or the overlying soft tissue was none remarkable.. Chest x-ray showed focal infiltrates in the right midlung in the right lower lung area. No leukocytosis. Coagulation profile within normal limits. His sodium level was 121. Renal function was normal. The alvarez virus/Covid 19 screen came back negative. Orthopedic surgery was consulted. His EKG showed no acute abnormalities and was essentially unremarkable with a normal sinus rhythm. The patient is currently on trach collar with 8 L of oxygen with an FiO2 of 35% with a pulse ox of 97-99%. He was given a dose of cefepime in the emergency department he was hospitalized. On today's evaluation, the patient was seen by nephrology. Hyponatremia was addressed. Note that overnight the patient received normal saline and since then the patient's sodium has dropped further. 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 The patient was given sodium chloride tablets. The patient stated that he was not using free water through his PEG. He does consume a lot of alcohol and the exact amount is not known. The normal saline was stopped. Fluid restriction was implemented. Mother the patient is also on Depakote which could possibly contribute to the hyponatremia. The patient will be also seen by neurology regarding the utility of Depakote his condition. On 08/01/2020, the patient's sodium level is not back yet from the morning blood work. He is currently being restricted on IV fluids. He was given salt tablets. Mental status is adequate and the patient is able to communicate. He still having respiratory secretions and the patient is currently on IV cefepime. No nausea. No vomiting. No diarrhea. Orthopedic surgeries on the case balance standby regarding the need for hip surgery. No nausea. No vomiting. No diarrhea. No abdominal pain. On today's evaluation of 08/02/2020, the patient is awake and alert. The patient's was given fluid restriction in addition to salt tablets. Sodium level immediately came up to 138. He has no fatigue or tiredness. Note that he has multiple medical problems and comorbidities. He also has a right hip fracture awaiting surgery. He does have some respiratory secretions. Cultures were negative. I was concerned of a infection and treat this patient antibiotics. Repeat x-ray is to be done tomorrow. Meanwhile, the patient is still on oxygen and the patient is currently on 5 L trach collar approximating a 28% FiO2. No trouble breathing at this point. The patient has a Shiley tracheostomy tube. The patient has had a long-term tracheostomy tube due to oral cancer in extensive oral surgery and reconstruction. Is receiving enteral feeding for nutritional support Objective - Vital Signs Vital signs: Vital Signs Temp 97.1 F L 08/02/20 09:49 Pulse 79 08/02/20 09:49 Resp 18 08/02/20 09:49 BP 112/66 08/02/20 09:49 Pulse Ox 100 08/02/20 09:49 Intake & Output 08/01/20 08/02/20 08/02/20 18:59 06:59 18:59 Intake Total 280 Output Total 1000 1400 Balance -720 -1400 Weight 59.5 kg Intake: Tube Feeding 250 Other 30 Output: Urine 1000 1400 Other: Voiding Method Urinal Urinal - Exam General Impression: Alert and oriented x3, not in acute distress, cachexic, and the patient has an extensive surgical scar over his face with possibly a muscle flap. HEENT: Normocephalic atraumatic, extra-ocular movements intact, pupils equal and reactive to light bilaterally, mucous membranes moist, tracheostomy in place and this is a Shiley tracheostomy tube. Cardiovascular: Cardiac exam revealed the PMI to be normally situated and sized. The rhythm was regular and no extrasystoles were noted during several minutes of auscultation. The first and second heart sounds were normal and physiologic splitting of the second heart sound was noted. There were no murmurs, rubs, clicks, or gallops. Chest: Able to complete full sentences, no retractions, no tachypnea Abdomen: abdomen soft, non-tender, non-distended, no organomegaly, PEG tube is dry clean and intact Musculoskeletal: Pulses present and equal in all extremities, no peripheral edema Right lower extremity: Minimal pain with flexion at the right hip, skin over the right hip shows no trauma signs. Right leg is not shortened compared to the left Motor: no focal deficits noted Neurological: CN II-XII grossly intact, no focal motor or sensory deficits noted Skin: Intact with no visualized rashes Psych: Normal affect and mood - Labs CBC & Chem 7: 08/01/20 07:05 08/02/20 10:12 Labs: Abnormal Lab Results - Last 24 Hours (Table) 08/01/20 08/02/20 Range/Units 07:05 10:12 Sodium 125 L (135-145) mmol/L Chloride 94 L 110 H (96-109) mmol/L Carbon Dioxide 20.9 L (21.6-31.8) mmol/L Creatinine 0.56 L (0.66-1.25) mg/dL BUN/Creatinine Ratio 23.33 H (12.00-20.00) Ratio Calcium 8.6 L (8.7-10.3) mg/dL Microbiology - Last 24 Hours (Table) 07/30/20 16:38 Blood Culture - Preliminary Blood No Growth after 48 hours Assessment and Plan Plan: 1 fall with right sided hip fracture, and the x-ray confirmed the fracture and the CAT scan of the hip also showed a subcapital right femoral neck fracture impacted by around 9 mm. There is a 9 mm of anterior displacement and angulation. She is awaiting surgery. The patient will be taken from the pulmonary standpoint for surgery. The follow-up visits will be obtained today. His sodium level has also improved. 2 right lung pneumonia suspected with new pulmonary infiltrate/opacity involving the right lower lobe and the right middle lobe, still having this for secretions through his tracheostomy tube, sputum cultures negative and the patient remains on IV cefepime 3 hyponatremia-, possibly of due to an underlying SIADH with a possibility of Depakote also contributing to this episodic low sodium. The patient apparently drinks alcohol and he denies excessive free water through his PEG low he denied during this current admission. Pneumonia couldn't be also potentially contributing to his SIADH. The patient was given normal saline without any improvement. He is currently on salt tablets in addition to fluid restriction. Follow-up sodium level is normalized and the patient is receiving fluid restriction. 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 5 tracheostomy with a recent hospitalization for tracheobronchitis, April 2020 6 PEG tube with enteral feeding for nutritional support 7 history of Sacral decubitus ulcer 8 COPD 9 Seizure disorder 10 Gastric reflux disease Plan Sodium level is normalized. Salt tablets We'll obtain a follow-up chest x-ray today continue IV cefepime for now. Neurology consultation regarding Depakote and its utility and possibility of switching this to another antiepileptic medication, the patient was taken off the Depakote and he was switched Vimpat Orthopedic surgery regarding the right hip fracture. I am essentially clearing this patient for surgery. Follow pulmonary standpoint, he is stable. The patient is still be done. We'll continue the same antibiotic coverage. She should be able to proceed with surgery with next 24 hours regarding his right hip fracture. His sodium level is also normalized. We'll continue to follow
[2020-08-02 11:36] LABS: HGB 8.9 gm/dL (13.0-17.5)
[2020-08-02 11:37] LABS: Platelet Count 64 k/uL (150-450)
--- NOTE | 2020-08-02 12:04 | XR ---
EXAMINATION TYPE: XR chest 1V DATE OF EXAM: 08/02/2020 COMPARISON: 07/30/2020 INDICATION: Hypoxemia TECHNIQUE: Single frontal view of the chest is obtained. FINDINGS: The heart size is normal. The pulmonary vasculature is normal. Radius infiltrates on the right are not as apparent. Minimal residual may be within the mid to lower right lung field. Port is present on the left with the tip in the distal superior vena cava region. Tracheostomy tube i s in the midline. IMPRESSION: 1. No acute pulmonary process. Previous patchy right infiltrate has largely resolved
[2020-08-02] MEDS ORDERED: MIDODRINE 5 MG TAB PO SCH (12:30)
[2020-08-02 12:42] LABS: Band Neutrophils % 2 %; Eosinophils # (M) 0.05 k/uL (0-0.7); Lymphocytes # (M) 0.61 k/uL (1.0-4.8); Monocytes # (M) 0.71 k/uL (0-1.0); Neutrophils % (M) 69 %; Nucleated Red Blood Cells 0 /100 WBC (0-0); Total Cells Counted 100
--- NOTE | 2020-08-02 13:28 | P.PN ---
Subjective Progress Note Date: 08/02/20 Follow-up for hyponatremia. Objective - Vital Signs Vital signs: Vital Signs Temp 97.1 F L 08/02/20 09:49 Pulse 79 08/02/20 09:49 Resp 18 08/02/20 09:49 BP 112/66 08/02/20 09:49 Pulse Ox 100 08/02/20 09:49 Intake & Output 08/01/20 08/02/20 08/02/20 18:59 06:59 18:59 Intake Total 280 340 Output Total 1000 1400 Balance -720 -1400 340 Weight 59.5 kg Intake: Tube Feeding 250 250 Other 30 90 Output: Urine 1000 1400 Other: Voiding Method Urinal Urinal - Exam Limited secondary to COVID 19 pandemic and to limit PPE. - Labs CBC & Chem 7: 08/02/20 10:12 08/02/20 10:12 Labs: Abnormal Lab Results - Last 24 Hours (Table) 08/02/20 08/02/20 Range/Units 10:12 10:12 RBC 2.70 L (4.30-5.90) m/uL Hgb 8.9 L D (13.0-17.5) gm/dL Hct 26.8 L (39.0-53.0) % Plt Count 64 L (150-450) k/uL Lymphocytes # (Manual) 0.61 L (1.0-4.8) k/uL Chloride 110 H (98-107) mmol/L Creatinine 0.56 L (0.66-1.25) mg/dL Microbiology - Last 24 Hours (Table) 07/30/20 16:38 Blood Culture - Preliminary Blood No Growth after 48 hours Assessment and Plan Assessment: #1 hyponatremia secondary to SIADH. #2 normal renal function #3 Squamous cell carcinoma of the oral cavity Plan: #1 sodium improving. Continue with salt tablets. #2 status post tolvaptan 15mg by mouth once study. #3 labs in the morning
--- NOTE | 2020-08-02 15:03 | P.PN ---
Subjective This is a pleasant 60 years old male who presents because of fall. He is patient of Dr. Mg. Patient gave me information also I talked to his miss Godfrey over the phone. Apparently the patient yesterday morning he fell while he was trying to get out of the bed without losing consciousness and he had his right hip area and imaging showing impacted right hip fracture, orthopedic team evaluated the patient and the planning to non-operative fixation. 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 His PCP Dr. Mg lowered his valproic acid about 7-8 months ago because of toxicity. He follows with Dr. Cardenas oncologist for his history of CANCER. He smokes about 1 pack per day and he drinks 1-2 beers of 24 ounces through his PEG tube. He eats and drinks through PEG tube, uses marijuana at times for his chronic back pain. MAPS was checked and he is and lorazepam 2 mg daily and gabapentin Sodium level has been requested in the morning but result isn't back yet still now, discussed with the staff and it looks like it is send out. We going to order another sodium stat cable 08/01/2020 Patient is awake and alert, no chest pain or dyspnea, no abdominal pain, he has minimal pain in his right hip area and he does not eat much of the pain medication. His blood pressure was running low today flex 70/40s, he received several boluses of normal saline with slight improvement, his metoprolol was held. However patient states that his systolic blood pressure usually runs on the low side like 90s Sodium improved today to 125 after change in his valproic acid to the patent Nephrology input is appreciated continue with sodium tablets and tolvaptan Patient currently continued on cefepime for his pneumonia. 08/02/2020 Patient is more awake and in the bit today, he is worried when surgery team are going to fix his right hip fracture, discussed with the patient that the following him closely and he has also other medical problems Today he was some blood-tinged and colored phlegm discharge from his tracheostomy tube, could be related to his diagnosis of pneumonia. However we will send sputum for culture and I discussed with staff. Result is pending and patient is currently is On cefepime His sodium is back to normal today at 138 and nephrology team are following the case very closely This is a slightly up at 64 today. And I think we can start patient on subcutaneous heparin today for DVT prophylaxis and keep monitor platelets and signs of bleeding. Blood pressure is improved today and it is 112/66 over still is close monitoring Review of Systems CONSTITUTIONAL: No fever, no malaise, no fatigue. HEENT: No recent visual problems or hearing problems. Denied any sore throat. CARDIOVASCULAR: No orthopnea, PND, no palpitations, no syncope. PULMONARY: No shortness of breath, no cough, no hemoptysis. GASTROINTESTINAL: No diarrhea, no nausea, no vomiting, no abdominal pain. Normoactive bowel sounds. NEUROLOGICAL: No headaches, no weakness, no numbness. Active Medications Generic Name Dose Route Start Last Admin Trade Name Freq PRN Reason Stop Dose Admin Acetaminophen 650 mg 07/30/20 16:32 08/02/20 07:56 Acetaminophen Tab 325 Mg Tab PO 650 mg Q6HR PRN Administration Mild Pain or Fever > 100.5 Aspirin 81 mg 07/31/20 09:00 08/02/20 07:56 Aspirin 81 Mg PEG/G-TUBE 81 mg DAILY ALEJO Administration Baclofen 20 mg 07/30/20 22:00 08/02/20 07:56 Baclofen 10 Mg Tab PEG/G-TUBE 20 mg TID ALEJO Administration Cyanocobalamin 500 mcg 07/31/20 23:15 08/02/20 07:57 Cyanocobalamin 500 Mcg Tab PO 500 mcg DAILY ALEJO Administration Folic Acid 1 mg 07/31/20 09:00 08/02/20 07:57 Folic Acid 1 Mg Tab PEG/G-TUBE 1 mg DAILY ALEJO Administration Gabapentin 300 mg 07/30/20 22:00 08/02/20 07:57 Gabapentin 300 Mg Cap PEG/G-TUBE 300 mg TID ALEJO Administration Cefepime HCl 2 gm/ Sodium 100 mls @ 25 mls/hr 07/31/20 09:00 08/02/20 07:58 Chloride IVPB 25 mls/hr Q12HR ALEJO Administration Lacosamide 50 mg 07/31/20 14:38 08/02/20 07:56 Lacosamide 50 Mg Tablet PEG/G-TUBE 50 mg BID ALEJO Administration Lorazepam 1 mg 07/31/20 18:15 07/31/20 21:28 Lorazepam 1 Mg Tab PEG/G-TUBE 1 mg BID PRN Administration Anxiety Midodrine 5 mg 08/02/20 09:00 08/02/20 09:27 Midodrine 5 Mg Tab PO Not Given AC-BID ALEJO Morphine Sulfate 4 mg 07/30/20 16:32 08/01/20 13:39 Morphine Sulfate 4 Mg/Ml Syringe IV 4 mg Q4HR PRN Administration Severe Pain Naloxone HCl 0.2 mg 07/30/20 16:32 Naloxone 0.4 Mg/Ml 1 Ml Vial IV Q2M PRN Opioid Reversal Nicotine 1 patch 07/31/20 12:00 08/02/20 07:58 Nicotine 21mg/24hr Patch TRANSDERM 1 patch DAILY ALEJO Administration Ondansetron HCl 4 mg 07/30/20 16:32 Ondansetron 4 Mg/2 Ml Vial IVP Q8HR PRN Nausea And Vomiting Pantoprazole Sodium 40 mg 07/31/20 09:00 08/02/20 07:58 Pantoprazole 40 Mg/10 Ml Vial IV 40 mg DAILY ALEJO Administration Prochlorperazine Maleate 10 mg 07/30/20 19:15 08/02/20 12:52 Prochlorperazine 10 Mg Tab PEG/G-TUBE 10 mg Q6H ALEJO Administration Sodium Chloride 2 gm 07/31/20 19:30 08/02/20 07:57 Sodium Chloride Tab 1 Gm Tab PO 2 gm BID ALEJO Administration Thiamine HCl 100 mg 08/01/20 09:00 08/02/20 07:57 Thiamine 100 Mg Tab PO 100 mg DAILY ALEJO Administration Objective - Vital Signs Vital signs: Vital Signs Temp 97.1 F L 08/02/20 09:49 Pulse 79 08/02/20 09:49 Resp 18 08/02/20 09:49 BP 112/66 08/02/20 09:49 Pulse Ox 100 08/02/20 09:49 Intake & Output 08/01/20 08/02/20 08/02/20 18:59 06:59 18:59 Intake Total 280 340 Output Total 1000 1400 Balance -720 -1400 340 Weight 59.5 kg Intake: Tube Feeding 250 250 Other 30 90 Output: Urine 1000 1400 Other: Voiding Method Urinal Urinal - Exam GENERAL: The patient is alert and oriented x3, not in any acute distress. Well developed, well nourished. -HEENT: Pupils are round and equally reacting to light. EOMI. No scleral icterus. No conjunctival pallor. Normocephalic, atraumatic. No pharyngeal erythema. No thyromegaly. Mouth floor deformity from previous surgery CARDIOVASCULAR: S1 and S2 present. No murmurs, rubs, or gallops. -PULMONARY: Chest is clear to auscultation, no wheezing or crackles. Trach eostomy tube is in place and is neck collar ABDOMEN: Soft, nontender, nondistended, normoactive bowel sounds. No palpable organomegaly. MUSCULOSKELETAL: No joint swelling or deformity. -EXTREMITIES: No cyanosis, clubbing, or pedal edema. Right hip tenderness NEUROLOGICAL: Gross neurological examination did not reveal any focal deficits. SKIN: No rashes. No petechiae - Labs CBC & Chem 7: 08/02/20 10:12 08/02/20 10:12 Labs: Abnormal Lab Results - Last 24 Hours (Table) 08/02/20 08/02/20 Range/Units 10:12 10:12 RBC 2.70 L (4.30-5.90) m/uL Hgb 8.9 L D (13.0-17.5) gm/dL Hct 26.8 L (39.0-53.0) % Plt Count 64 L (150-450) k/uL Lymphocytes # (Manual) 0.61 L (1.0-4.8) k/uL Chloride 110 H (98-107) mmol/L Creatinine 0.56 L (0.66-1.25) mg/dL Microbiology - Last 24 Hours (Table) 07/30/20 16:38 Blood Culture - Preliminary Blood No Growth after 48 hours Assessment and Plan Assessment: -Fall with right hip fracture, with orthopedic team planning for non-operative reduction and fixation -Hyponatremia, 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 Sodium is back to normal. Switch valproic acid to Vimpat -Peripheral neuropathy on valproic acid, hold valproic acid for now due to low sodium, neurology team started the patient on Vimpat -Possible aspiration pneumonia with abnormal infiltrate in the right mid to lower lung, no respiratory symptoms. 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
[2020-08-03] MEDS: PROCHLORPERAZINE 10 MG TAB PEG/G-TUBE SCH ×4 (01:33→21:32)
[2020-08-03] MEDS: ACETAMINOPHEN TAB 325 MG TAB PO PRN ×3 (04:45→15:49)
[2020-08-03] MEDS: NICOTINE 21MG/24HR PATCH TRANSDERM SCH (09:34)
[2020-08-03] MEDS: BACLOFEN 10 MG TAB PEG/G-TUBE SCH ×3 (09:35→21:33)
[2020-08-03] MEDS: GABAPENTIN 300 MG CAP PEG/G-TUBE SCH ×3 (09:35→21:33)
[2020-08-03] MEDS: LACOSAMIDE 50 MG TABLET PEG/G-TUBE SCH ×2 (09:35→21:33)
[2020-08-03] MEDS: MIDODRINE 5 MG TAB PO SCH ×2 (09:35→15:49)
[2020-08-03] MEDS: CYANOCOBALAMIN 500 MCG TAB PO SCH (09:35)
[2020-08-03] MEDS: ASPIRIN 81 MG PEG/G-TUBE SCH (09:35)
[2020-08-03] MEDS: SODIUM CHLORIDE TAB 1 GM TAB PO SCH ×2 (09:35→21:32)
[2020-08-03] MEDS: PANTOPRAZOLE 40 MG/10 ML VIAL IV SCH (09:36)
[2020-08-03] MEDS: FOLIC ACID 1 MG TAB PEG/G-TUBE SCH (09:36)
[2020-08-03] MEDS: THIAMINE 100 MG TAB PO SCH (09:36)
[2020-08-03] MEDS: CEFEPIME 2 GM in SODIUM CHLORIDE 0.9% 100 ML IVPB SCH ×2 (09:37→21:32)
--- NOTE | 2020-08-03 11:07 | XR ---
EXAMINATION TYPE: XR chest 1V portable DATE OF EXAM: 08/03/2020 HISTORY: Shortness of breath. COMPARISON: 08/02/2020 TECHNIQUE: Single view of the chest is submitted. FINDINGS: Demonstrated are scattered senescent parenchymal change. Tracheostomy tube and left-sided MediPort c atheter place. There is no evidence for focal infiltrate. The heart is stable. Hilar and mediastinal structures are within normal limits. Degenerative changes are seen of the dorsal spine. IMPRESSION: 1. Chronic changes without evidence for acute pulmonary disease.
[2020-08-03 11:17] LABS: Basophils # (A) 0.1 k/uL (0-0.2); Basophils % (A) 1 %; Eosinophils # (A) 0.1 k/uL (0-0.7); Eosinophils % (A) 2 %; HCT 27.3 % (39.0-53.0); HGB 9.1 gm/dL (13.0-17.5); Hypochromasia Slight; Lymphocytes % (A) 17 %; MCH 33.4 pg (25.0-35.0); MCHC 33.4 g/dL (31.0-37.0); MCV 100.1 fL (80.0-100.0); Mean Platelet Volume 8.1; Monocytes # (A) 0.6 k/uL (0-1.0); Monocytes % (A) 10 %; Neutrophils # (A) 3.8 k/uL (1.3-7.7); Neutrophils % (A) 65 %; RBC 2.73 m/uL (4.30-5.90); RDW 12.4 % (11.5-15.5); WBC 5.8 k/uL (3.8-10.6)
[2020-08-03 11:17] LABS: Anion Gap 6.3 mmol/L (4.00-12.00)
[2020-08-03 11:19] LABS: Platelet Count 71 k/uL (150-450)
[2020-08-03 11:27] LABS: African American GFR (CKD) >90 (>60 ml/min/1.73 sqM); Anion Gap 3 mmol/L; Blood Urea Nitrogen 17 mg/dL (9-20); Calcium 8.6 mg/dL (8.4-10.2); Carbon Dioxide 28 mmol/L (22-30); Chloride 110 mmol/L (98-107); Glucose 81 mg/dL (74-99); Non-African American GFR(CKD) >90 (>60 ml/min/1.73 sqM); Potassium 3.6 mmol/L (3.5-5.1); Sodium 141 mmol/L (137-145)
[2020-08-03] MEDS ORDERED: POTASSIUM CHLORIDE ER 20 MEQ TAB.ER PO STA (12:12)
--- NOTE | 2020-08-03 12:12 | P.PN ---
Subjective Patient is seen in follow-up for hyponatremia. Sodium level normal. He is receiving tube feeding. No active complaints. Vital signs are stable. General: The patient appeared well nourished and normally developed. HEENT: Head exam is unremarkable. Neck is without jugular venous distension. LUNGS: Breath sounds decreased. HEART: Rate and Rhythm are regular. ABDOMEN: Soft, nontender. EXTREMITITES: No edema. Objective - Vital Signs Vital signs: Vital Signs Temp 97.8 F 08/03/20 09:44 Pulse 74 08/03/20 09:44 Resp 18 08/03/20 09:44 BP 89/53 08/03/20 09:44 Pulse Ox 95 08/03/20 09:44 Intake & Output 08/02/20 08/03/20 08/03/20 18:59 06:59 18:59 Intake Total 590 5 Output Total 400 500 Balance 190 5 -500 Weight 59 kg Intake: Tube Feeding 500 5 Other 90 Output: Urine 400 Stool 500 Other: Voiding Method Urinal Urinal Urinal - Labs CBC & Chem 7: 08/03/20 10:58 08/03/20 10:58 Labs: Abnormal Lab Results - Last 24 Hours (Table) 07/31/20 08/02/20 08/03/20 Range/Units 08:16 10:12 10:58 RBC 2.73 L (4.30-5.90) m/uL Hgb 9.1 L (13.0-17.5) gm/dL Hct 27.3 L (39.0-53.0) % MCV 100.1 H (80.0-100.0) fL Plt Count 64 L 71 L (150-450) k/uL Lymphocytes # (Manual) 0.61 L (1.0-4.8) k/uL Sodium 119 L* (135-145) mmol/L Chloride (98-107) mmol/L Creatinine (0.66-1.25) mg/dL 08/03/20 Range/Units 10:58 RBC (4.30-5.90) m/uL Hgb (13.0-17.5) gm/dL Hct (39.0-53.0) % MCV (80.0-100.0) fL Plt Count (150-450) k/uL Lymphocytes # (Manual) (1.0-4.8) k/uL Sodium (135-145) mmol/L Chloride 110 H (98-107) mmol/L Creatinine 0.56 L (0.66-1.25) mg/dL Microbiology - Last 24 Hours (Table) 07/31/20 21:14 Gram Stain - Preliminary Sputum Sputum Culture - Preliminary Gram Neg Bacilli 08/02/20 13:13 Gram Stain - Preliminary Sputum Sputum Culture - Preliminary 07/30/20 16:38 Blood Culture - Preliminary Blood No Growth after 72 hours Assessment and Plan Plan: Assessment: 1. Hyponatremia secondary to SIADH. Resolved. Cortisol level normal. 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 Plan: Decrease salt tabs to 1 g twice daily. Maintain tube feeding.
[2020-08-03 14:59] VITALS: BMI 17.2
--- NOTE | 2020-08-03 17:16 | P.PN ---
Subjective Progress Note Date: 08/03/20 Principal diagnosis: Fall with right hip fracture, possible aspiration pneumonia. 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 The patient needed his procedures after he underwent surgical resection with oral reconstructive surgery. The patient is known to have other comorbidities including COPD, seizure disorder and history of depression. His last hospitalization was back in April 2020 when the patient came into the hospital because of purulent discharge from his tracheostomy tube in addition to significant hyponatremia that was assumed to be excessive free water ingestion through his PEG tube. At that time, the patient had an aerobic infection and he was treated with Unasyn and his sodium was corrected and the patient was discharged. The patient came back to the emergency department yesterday for right hip pain. He is still poor historian. He allegedly got up and fell on the right side landing on his right hip. No head trauma. No neck trauma. He is quite debilitated and has a poor baseline performance and functional status. Further investigation in the emergency department included a CAT scan of the head and C-spine that showed no acute abnormalities. X-ray of the hip and the pelvis showed acute process cervical fracture of the femoral neck of the right femur. There was also demineralizat ion. Underlying or the overlying soft tissue was none remarkable.. Chest x-ray showed focal infiltrates in the right midlung in the right lower lung area. No leukocytosis. Coagulation profile within normal limits. His sodium level was 121. Renal function was normal. The alvarez virus/Covid 19 screen came back negative. Orthopedic surgery was consulted. His EKG showed no acute abnormalities and was essentially unremarkable with a normal sinus rhythm. The patient is currently on trach collar with 8 L of oxygen with an FiO2 of 35% with a pulse ox of 97-99%. He was given a dose of cefepime in the emergency department he was hospitalized. On today's evaluation, the patient was seen by nephrology. Hyponatremia was addressed. Note that overnight the patient received normal saline and since then the patient's sodium has dropped further. 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 The patient was given sodium chloride tablets. The patient stated that he was not using free water through his PEG. He does consume a lot of alcohol and the exact amount is not known. The normal saline was stopped. Fluid restriction was implemented. Mother the patient is also on Depakote which could possibly contribute to the hyponatremia. The patient will be also seen by neurology regarding the utility of Depakote his condition. On 08/01/2020, the patient's sodium level is not back yet from the morning blood work. He is currently being restricted on IV fluids. He was given salt tablets. Mental status is adequate and the patient is able to communicate. He still having respiratory secretions and the patient is currently on IV cefepime. No nausea. No vomiting. No diarrhea. Orthopedic surgeries on the case balance standby regarding the need for hip surgery. No nausea. No vomiting. N o diarrhea. No abdominal pain. On today's evaluation of 08/02/2020, the patient is awake and alert. The patient's was given fluid restriction in addition to salt tablets. Sodium level immediately came up to 138. He has no fatigue or tiredness. Note that he has multiple medical problems and comorbidities. He also has a right hip fracture awaiting surgery. He does have some respiratory secretions. Cultures were negative. I was concerned of a infection and treat this patient antibiotics. Repeat x-ray is to be done tomorrow. Meanwhile, the patient is still on oxygen and the patient is currently on 5 L trach collar approximating a 28% FiO2. No trouble breathing at this point. The patient has a Shiley tracheostomy tube. The patient has had a long-term tracheostomy tube due to oral cancer in extensive oral surgery and reconstruction. Is receiving enteral feeding for nutritional support reevaluated today on 08/03/20, patient is awake, sitting at a bedside chair, in no distress. Follow-up chest x-ray showed chronic changes, and no evidence of acute process, apparently has a right-sided pneumonia has resolved. No focal infiltrate was noted on the chest x-ray today. Patient had multiple medical problems on this admission including fall with hip fracture, and he was being considered for non-operative reduction and fixation of the hip fracture. His other problems included hyponatremia, peripheral neuropathy, possible aspiration pneumonia, history of alcohol abuse, and history of marijuana abuse. History of lung cancer with previous surgical resection of the tongue and part of the floor of the mouth. Pulmonary-carpenter, the patient seems to be in no distress, he marshal ins on trach collar, O2 saturation is in the 90s. Objective - Vital Signs Vital signs: Vital Signs Temp 97.4 F L 08/03/20 13:52 Pulse 79 08/03/20 13:52 Resp 20 08/03/20 13:52 BP 96/63 08/03/20 13:52 Pulse Ox 97 08/03/20 13:52 Intake & Output 08/02/20 08/03/20 08/03/20 18:59 06:59 18:59 Intake Total 590 5 Output Total 400 500 Balance 190 5 -500 Weight 59 kg 59 kg Intake: Tube Feeding 500 5 Other 90 Output: Urine 400 Stool 500 Other: Voiding Method Urinal Urinal Urinal - Exam GENERAL: Revealed a 60-year-old white male in no distress. -HEENT: Pupils are round and equally reacting to light. EOMI. No scleral ict erus. No conjunctival pallor. Tracheostomy is unremarkable. Trach collar in place. CARDIOVASCULAR: S1 and S2 present. No murmurs, rubs, or gallops. -PULMONARY: Chest is clear to auscultation, no wheezing or crackles. ABDOMEN: Soft, nontender, nondistended, normoactive bowel sounds. No palpable o rganomegaly. MUSCULOSKELETAL: No joint swelling or deformity. -EXTREMITIES: No cyanosis, clubbing, or pedal edema. Right hip tenderness NEUROLOGICAL: Gross neurological examination did not reveal any focal deficits. SKIN: No rashes. No petechiae - Labs CBC & Chem 7: 08/03/20 10:58 08/03/20 10:58 Labs: Abnormal Lab Results - Last 24 Hours (Table) 07/31/20 08/01/20 08/03/20 Range/Units 08:16 07:05 10:58 RBC 2.73 L (4.30-5.90) m/uL Hgb 9.1 L (13.0-17.5) gm/dL Hct 27.3 L (39.0-53.0) % MCV 100.1 H (80.0-100.0) fL Plt Count 71 L (150-450) k/uL Sodium 119 L* (135-145) mmol/L Chloride (98-107) mmol/L Creatinine (0.66-1.25) mg/dL RBC Folate 1,579 H (280 - 791) ng/mL 08/03/20 Range/Units 10:58 RBC (4.30-5.90) m/uL Hgb (13.0-17.5) gm/dL Hct (39.0-53.0) % MCV (80.0-100.0) fL Plt Count (150-450) k/uL Sodium (135-145) mmol/L Chloride 110 H (98-107) mmol/L Creatinine 0.56 L (0.66-1.25) mg/dL RBC Folate (280 - 791) ng/mL Microbiology - Last 24 Hours (Table) 07/31/20 21:14 Gram Stain - Preliminary Sputum Sputum Culture - Preliminary Gram Neg Bacilli 08/02/20 13:13 Gram Stain - Preliminary Sputum Sputum Culture - Preliminary 07/30/20 16:38 Blood Culture - Preliminary Blood No Growth after 72 hours Assessment and Plan Assessment: Impression: Fall with right-sided hip fracture Right lung pneumonia possibly aspiration pneumonia unless otherwise. Hyponatremia secondary to SIADH. 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 Patient cleared from our perspective for any orthopedics intervention. Continue antibiotics. Continue aspiration precautions. Continue feeding via PEG tube. We'll continue to follow. Time with Patient: Less than 30
--- NOTE | 2020-08-03 18:31 | P.PN ---
Subjective Progress Note Date: 08/03/20 Principal diagnosis: Right hip fracture. Covid Pneumonia. Multiple medical comorbidities. The patient is a 60-year-old male who we're following regarding his right hip fr acture. He continues to have treatment for his Covid pneumonia. The patient requested conversation regarding his hip fracture and proposed treatment. The patient states that he does ambulate at home with the assistance of a walker. Objective - Vital Signs Vital signs: Vital Signs Temp 97.6 F 08/03/20 17:45 Pulse 80 08/03/20 17:45 Resp 18 08/03/20 17:45 BP 96/52 08/03/20 17:45 Pulse Ox 97 08/03/20 13:52 Intake & Output 08/02/20 08/03/20 08/03/20 18:59 06:59 18:59 Intake Total 590 5 Output Total 400 500 Balance 190 5 -500 Weight 59 kg 59 kg Intake: Tube Feeding 500 5 Other 90 Output: Urine 400 Stool 500 Other: Voiding Method Urinal Urinal Urinal - Exam Exam not performed today. Discussion with patient over the phone secondary to his Covid 19 status. - Labs CBC & Chem 7: 08/03/20 10:58 08/03/20 10:58 Labs: Abnormal Lab Results - Last 24 Hours (Table) 07/31/20 08/01/20 08/03/20 Range/Units 08:16 07:05 10:58 RBC 2.73 L (4.30-5.90) m/uL Hgb 9.1 L (13.0-17.5) gm/dL Hct 27.3 L (39.0-53.0) % MCV 100.1 H (80.0-100.0) fL Plt Count 71 L (150-450) k/uL Sodium 119 L* (135-145) mmol/L Chloride (98-107) mmol/L Creatinine (0.66-1.25) mg/dL RBC Folate 1,579 H (280 - 791) ng/mL 08/03/20 Range/Units 10:58 RBC (4.30-5.90) m/uL Hgb (13.0-17.5) gm/dL Hct (39.0-53.0) % MCV (80.0-100.0) fL Plt Count (150-450) k/uL Sodium (135-145) mmol/L Chloride 110 H (98-107) mmol/L Creatinine 0.56 L (0.66-1.25) mg/dL RBC Folate (280 - 791) ng/mL Microbiology - Last 24 Hours (Table) 07/31/20 21:14 Gram Stain - Preliminary Sputum Sputum Culture - Preliminary Gram Neg Bacilli 08/02/20 13:13 Gram Stain - Preliminary Sputum Sputum Culture - Preliminary 07/30/20 16:38 Blood Culture - Preliminary Blood No Growth after 72 hours Assessment and Plan (1) Hip fracture Current Visit: Yes Status: Acute Code(s): S72.009A - FRACTURE OF UNSP PART OF NECK OF UNSP FEMUR, INIT SNOMED Code(s): 486985512 (2) Pneumonia Current Visit: Yes Status: Acute Code(s): J18.9 - PNEUMONIA, UNSPECIFIED ORGANISM SNOMED Code(s): 251320769 Plan: The x-ray and computed tomography scan findings are discussed with the. The patient has a chronic debility and with his chronic and acute illness, he is not a good surgical candidate. It is discussed with the patient that his fracture may be treated nonoperatively. An impacted Femoral neckfracture is typically considered a stable fracture. We will continue to follow peripherally and take repeat x-rays as indicated.The patient understands and agrees with the plan.
--- NOTE | 2020-08-03 19:57 | P.PN ---
Subjective Progress Note Date: 08/03/20 Patient was seen for a follow-up. Patient initially seen by Dr. Cedric Mitchell on 07/31/2020. Please refer to his note for details. Neurology follow-up requested to assess for need for MRI of the cervical spine. 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 Patient came to the hospital because he fell off the bed, fracturing right hip. No surgery was recommended. Patient was sitting in the recliner, very comfortable, in no apparent distress. He appears somewhat thin build. Objective - Vital Signs Vital signs: Vital Signs Temp 97.6 F 08/03/20 17:45 Pulse 80 08/03/20 17:45 Resp 18 08/03/20 17:45 BP 96/52 08/03/20 17:45 Pulse Ox 97 08/03/20 13:52 Intake & Output 08/03/20 08/03/20 08/04/20 06:59 18:59 06:59 Intake Total 5 Output Total 500 Balance 5 -500 Weight 59 kg 59 kg Intake: Tube Feeding 5 Output: Stool 500 Other: Voiding Method Urinal Urinal Urinal - Exam On examination patient is a middle aged male, appears older than his stated age. He is alert and awake fairly well oriented. speech and language functions are normal. Pupils are round and reacting, visual carrillo are full, extraocular muscles are intact. Face is symmetric. Facial sensations normal. Tongue protrudes to the midline. Hearing is normal. Shoulder shrug normal. Patient history colostomy. On muscle strength testing the strength is completely normal in both arms distally and proximally including biceps, triceps, deltoid, interossei and volunteer firefighter. The lower extremities, left leg was checked in detail and appears normal including hip flexion, ankle dorsiflexion and toe extension. In the right lower extremity only ankle dorsiflexion was checked which was normal. Hip could not be checked. Patient has possible withdrawal versus Going bilaterally. Chest appears clear. No murmurs. He has track in place. Mild labored breathing. Bowel sounds are present. Abdomen is soft and nontender. He has PEG tube. - Labs CBC & Chem 7: 08/03/20 10:58 08/03/20 10:58 Labs: Abnormal Lab Results - Last 24 Hours (Table) 07/31/20 08/01/20 08/03/20 Range/Units 08:16 07:05 10:58 RBC 2.73 L (4.30-5.90) m/uL Hgb 9.1 L (13.0-17.5) gm/dL Hct 27.3 L (39.0-53.0) % MCV 100.1 H (80.0-100.0) fL Plt Count 71 L (150-450) k/uL Sodium 119 L* (135-145) mmol/L Chloride (98-107) mmol/L Creatinine (0.66-1.25) mg/dL RBC Folate 1,579 H (280 - 791) ng/mL 08/03/20 Range/Units 10:58 RBC (4.30-5.90) m/uL Hgb (13.0-17.5) gm/dL Hct (39.0-53.0) % MCV (80.0-100.0) fL Plt Count (150-450) k/uL Sodium (135-145) mmol/L Chloride 110 H (98-107) mmol/L Creatinine 0.56 L (0.66-1.25) mg/dL RBC Folate (280 - 791) ng/mL Microbiology - Last 24 Hours (Table) 07/30/20 16:38 Blood Culture - Preliminary Blood No Growth after 96 hours 07/31/20 21:14 Gram Stain - Preliminary Sputum Sputum Culture - Preliminary Gram Neg Bacilli 08/02/20 13:13 Gram Stain - Preliminary Sputum Sputum Culture - Preliminary Assessment and Plan Assessment: * Status post fall off the bed with right hip fracture. 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 * History of alcohol withdrawal seizure, last one 5 years ago. * Cervical spondylosis * Hypothyroidism. Plan: * Patient's examination shows normal strength in both upper and lower extremit ies (proximal right leg not checked in detail because of recent fracture). I do not see need for urgent MRI of the cervical spine at this time. May consider it at a later time, when safe from infectious disease standpoint. * Patient's right hip fracture being managed conservatively. * Vitamin B12 506, RBC folate normal, hemoglobin A1c 5.1 normal, TSH is elevated 10.8 with normal free T4 0.96. May need adjustment of thyroid replacement. * We will follow patient sporadically.
[2020-08-03 20:20] LABS: Glucose,Whole Blood 93 mg/dL (75-99)
[2020-08-03] MEDS: MORPHINE SULFATE 4 MG/ML SYRINGE IV PRN (21:41)
[2020-08-04] MEDS: PROCHLORPERAZINE 10 MG TAB PEG/G-TUBE SCH ×4 (01:47→21:23)
[2020-08-04] MEDS: CEFEPIME 2 GM in SODIUM CHLORIDE 0.9% 100 ML IVPB SCH ×2 (07:55→21:22)
[2020-08-04] MEDS: MORPHINE SULFATE 4 MG/ML SYRINGE IV PRN ×3 (07:56→21:22)
[2020-08-04] MEDS: NICOTINE 21MG/24HR PATCH TRANSDERM SCH (07:56)
[2020-08-04] MEDS: MIDODRINE 5 MG TAB PO SCH ×2 (07:56→15:20)
[2020-08-04] MEDS: PANTOPRAZOLE 40 MG/10 ML VIAL IV SCH (07:56)
[2020-08-04] MEDS: THIAMINE 100 MG TAB PO SCH (07:57)
[2020-08-04] MEDS: CYANOCOBALAMIN 500 MCG TAB PO SCH (07:57)
[2020-08-04] MEDS: BACLOFEN 10 MG TAB PEG/G-TUBE SCH ×3 (07:57→21:23)
[2020-08-04] MEDS: GABAPENTIN 300 MG CAP PEG/G-TUBE SCH ×3 (07:57→21:23)
[2020-08-04] MEDS: FOLIC ACID 1 MG TAB PEG/G-TUBE SCH (07:57)
[2020-08-04] MEDS: LACOSAMIDE 50 MG TABLET PEG/G-TUBE SCH ×2 (07:57→21:23)
[2020-08-04] MEDS: SODIUM CHLORIDE TAB 1 GM TAB PO SCH ×2 (07:57→21:23)
[2020-08-04] MEDS: ASPIRIN 81 MG PEG/G-TUBE SCH (07:57)
--- NOTE | 2020-08-04 10:23 | P.PN ---
Subjective Patient is seen in follow-up for hyponatremia. Sodium level normal as of yesterday. He is receiving tube feeding. No active complaints. Vital signs are stable. General: The patient appeared well nourished and normally developed. HEENT: Head exam is unremarkable. Neck is without jugular venous distension. LUNGS: Breath sounds decreased. HEART: Rate and Rhythm are regular. ABDOMEN: Soft, nontender. EXTREMITITES: No edema. Objective - Vital Signs Vital signs: Vital Signs Temp 97.6 F 08/04/20 06:05 Pulse 62 08/04/20 06:05 Resp 19 08/04/20 06:05 BP 101/56 08/04/20 06:05 Pulse Ox 96 08/04/20 06:05 Intake & Output 08/03/20 08/04/20 08/04/20 18:59 06:59 18:59 Output Total 500 300 Balance -500 -300 Weight 59 kg Output: Urine 300 Stool 500 Other: Voiding Method Urinal Urinal - Labs CBC & Chem 7: 08/03/20 10:58 08/03/20 10:58 Labs: Abnormal Lab Results - Last 24 Hours (Table) 07/31/20 08/01/20 08/03/20 Range/Units 08:16 07:05 10:58 RBC 2.73 L (4.30-5.90) m/uL Hgb 9.1 L (13.0-17.5) gm/dL Hct 27.3 L (39.0-53.0) % MCV 100.1 H (80.0-100.0) fL Plt Count 71 L (150-450) k/uL Sodium 119 L* (135-145) mmol/L Chloride (98-107) mmol/L Creatinine (0.66-1.25) mg/dL RBC Folate 1,579 H (280 - 791) ng/mL 08/03/20 Range/Units 10:58 RBC (4.30-5.90) m/uL Hgb (13.0-17.5) gm/dL Hct (39.0-53.0) % MCV (80.0-100.0) fL Plt Count (150-450) k/uL Sodium (135-145) mmol/L Chloride 110 H (98-107) mmol/L Creatinine 0.56 L (0.66-1.25) mg/dL RBC Folate (280 - 791) ng/mL Microbiology - Last 24 Hours (Table) 08/02/20 13:13 Gram Stain - Final Sputum Sputum Culture - Final 07/31/20 21:14 Gram Stain - Final Sputum Sputum Culture - Final Stenotrophomonas maltophilia 07/30/20 16:38 Blood Culture - Preliminary Blood No Growth after 96 hours Assessment and Plan Plan: Assessment: 1. Hyponatremia secondary to SIADH. Resolved. Cortisol level normal. 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 Plan: Decrease salt tab once daily. Maintain tube feeding. Repeat electrolytes in the morning.
--- NOTE | 2020-08-04 11:56 | P.PN ---
Subjective This is a pleasant 60 years old male who presents because of fall. He is patient of Dr. Mg. Patient gave me information also I talked to his miss Godfrey over the phone. Apparently the patient yesterday morning he fell while he was trying to get out of the bed without losing consciousness and he had his right hip area and imaging showing impacted right hip fracture, orthopedic team evaluated the patient and the planning to non-operative fixation. 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 His PCP Dr. Mg lowered his valproic acid about 7-8 months ago because of toxicity. He follows with Dr. Cardenas oncologist for his history of CANCER. He smokes about 1 pack per day and he drinks 1-2 beers of 24 ounces through his PEG tube. He eats and drinks through PEG tube, uses marijuana at times for his chronic back pain. MAPS was checked and he is and lorazepam 2 mg daily and gabapentin Sodium level has been requested in the morning but result isn't back yet still now, discussed with the staff and it looks like it is send out. We going to order another sodium stat cable 08/01/2020 Patient is awake and alert, no chest pain or dyspnea, no abdominal pain, he has minimal pain in his right hip area and he does not eat much of the pain medication. His blood pressure was running low today flex 70/40s, he received several boluses of normal saline with slight improvement, his metoprolol was held. However patient states that his systolic blood pressure usually runs on the low side like 90s Sodium improved today to 125 after change in his valproic acid to the patent Nephrology input is appreciated continue with sodium tablets and tolvaptan Patient currently continued on cefepime for his pneumonia. 08/02/2020 Patient is more awake and in the bit today, he is worried when surgery team are going to fix his right hip fracture, discussed with the patient that the following him closely and he has also other medical problems Today he was some blood-tinged and colored phlegm discharge from his tracheostomy tube, could be related to his diagnosis of pneumonia. However we will send sputum for culture and I discussed with staff. Result is pending and patient is currently is On cefepime His sodium is back to normal today at 138 and nephrology team are following the case very closely This is a slightly up at 64 today. And I think we can start patient on subcutaneous heparin today for DVT prophylaxis and keep monitor platelets and signs of bleeding. Blood pressure is improved today and it is 112/66 over still is close monitoring 08/03/2020 Patient is more awake and alert, he looks comfortable sitting up in bed with the correction of his sodium back to normal. Episodes secondary to a site the edge, secondary to valproic acid which was discontinued and switched to Vimpat per neurology team service. Neurologist also recommended MRI of the cervical spine and they are already following the patient closely, we will keep following the recommendation however is developing bloody mucus secretions through his tracheostomy tube, patient is a known case of pneumonia and he is already on cefepime, we ordered a separate culture and sensitivity, pulmonary team already on the case , Hemoglobin is stable at 9.1, platelets is improved to 71. WBC is normal. BMP is unremarkable and sodium is 141 Sputum culture growing stenotrophonomas maltophilia Orthopedic team R on the case for his right hip fracture Review of Systems CONSTITUTIONAL: No fever, no malaise, no fatigue. HEENT: No recent visual problems or hearing problems. Denied any sore throat. CARDIOVASCULAR: No orthopnea, PND, no palpitations, no syncope. PULMONARY: No shortness of breath, no cough, no hemoptysis. GASTROINTESTINAL: No diarrhea, no nausea, no vomiting, no abdominal pain. Normoactive bowel sounds. NEUROLOGICAL: No headaches, no weakness, no numbness. Active Medications Generic Name Dose Route Start Last Admin Trade Name Trinity PRN Reason Stop Dose Admin Acetaminophen 650 mg 07/30/20 16:32 08/02/20 07:56 Acetaminophen Tab 325 Mg Tab PO 650 mg Q6HR PRN Administration Mild Pain or Fever > 100.5 Aspirin 81 mg 07/31/20 09:00 08/02/20 07:56 Aspirin 81 Mg PEG/G-TUBE 81 mg DAILY ALEJO Administration Baclofen 20 mg 07/30/20 22:00 08/02/20 07:56 Baclofen 10 Mg Tab PEG/G-TUBE 20 mg TID ALEJO Administration Cyanocobalamin 500 mcg 07/31/20 23:15 08/02/20 07:57 Cyanocobalamin 500 Mcg Tab PO 500 mcg DAILY ALEJO Administration Folic Acid 1 mg 07/31/20 09:00 08/02/20 07:57 Folic Acid 1 Mg Tab PEG/G-TUBE 1 mg DAILY ALEJO Administration Gabapentin 300 mg 07/30/20 22:00 08/02/20 07:57 Gabapentin 300 Mg Cap PEG/G-TUBE 300 mg TID ALEJO Administration Cefepime HCl 2 gm/ Sodium 100 mls @ 25 mls/hr 07/31/20 09:00 08/02/20 07:58 Chloride IVPB 25 mls/hr Q12HR ALEJO Administration Lacosamide 50 mg 07/31/20 14:38 08/02/20 07:56 Lacosamide 50 Mg Tablet PEG/G-TUBE 50 mg BID ALEJO Administration Lorazepam 1 mg 07/31/20 18:15 07/31/20 21:28 Lorazepam 1 Mg Tab PEG/G-TUBE 1 mg BID PRN Administration Anxiety Midodrine 5 mg 08/02/20 09:00 08/02/20 09:27 Midodrine 5 Mg Tab PO Not Given AC-BID ALEJO Morphine Sulfate 4 mg 07/30/20 16:32 08/01/20 13:39 Morphine Sulfate 4 Mg/Ml Syringe IV 4 mg Q4HR PRN Administration Severe Pain Naloxone HCl 0.2 mg 07/30/20 16:32 Naloxone 0.4 Mg/Ml 1 Ml Vial IV Q2M PRN Opioid Reversal Nicotine 1 patch 07/31/20 12:00 08/02/20 07:58 Nicotine 21mg/24hr Patch TRANSDERM 1 patch DAILY ALEJO Administration Ondansetron HCl 4 mg 07/30/20 16:32 Ondansetron 4 Mg/2 Ml Vial IVP Q8HR PRN Nausea And Vomiting Pantoprazole Sodium 40 mg 07/31/20 09:00 08/02/20 07:58 Pantoprazole 40 Mg/10 Ml Vial IV 40 mg DAILY ALEJO Administration Prochlorperazine Maleate 10 mg 07/30/20 19:15 08/02/20 12:52 Prochlorperazine 10 Mg Tab PEG/G-TUBE 10 mg Q6H ALEJO Administration Sodium Chloride 2 gm 07/31/20 19:30 08/02/20 07:57 Sodium Chloride Tab 1 Gm Tab PO 2 gm BID ALEJO Administration Thiamine HCl 100 mg 08/01/20 09:00 08/02/20 07:57 Thiamine 100 Mg Tab PO 100 mg DAILY ALEJO Administration Objective - Vital Signs Vital signs: Vital Signs Temp 97.6 F 08/03/20 17:45 Pulse 80 08/03/20 17:45 Resp 18 08/03/20 17:45 BP 96/52 08/03/20 17:45 Pulse Ox 97 08/03/20 13:52 Intake & Output 08/02/20 08/03/20 08/03/20 18:59 06:59 18:59 Intake Total 590 5 Output Total 400 500 Balance 190 5 -500 Weight 59 kg 59 kg Intake: Tube Feeding 500 5 Other 90 Output: Urine 400 Stool 500 Other: Voiding Method Urinal Urinal Urinal - Exam GENERAL: The patient is alert and oriented x3, not in any acute distress. Well developed, well nourished. -HEENT: Pupils are round and equally reacting to light. EOMI. No scleral icte chance. No conjunctival pallor. Normocephalic, atraumatic. No pharyngeal erythema. No thyromegaly. Mouth floor deformity from previous surgery CARDIOVASCULAR: S1 and S2 present. No murmurs, rubs, or gallops. -PULMONARY: Chest is clear to auscultation, no wheezing or crackles. Tracheostomy tube is in place and is neck collar ABDOMEN: Soft, nontender, nondistended, normoactive bowel sounds. No palpable organomegaly. MUSCULOSKELETAL: No joint swelling or deformity. -EXTREMITIES: No cyanosis, clubbing, or pedal edema. Right hip tenderness NEUROLOGICAL: Gross neurological examination did not reveal any focal deficits. SKIN: No rashes. No petechiae - Labs CBC & Chem 7: 08/03/20 10:58 08/03/20 10:58 Labs: Abnormal Lab Results - Last 24 Hours (Table) 07/31/20 08/01/20 08/03/20 Range/Units 08:16 07:05 10:58 RBC 2.73 L (4.30-5.90) m/uL Hgb 9.1 L (13.0-17.5) gm/dL Hct 27.3 L (39.0-53.0) % MCV 100.1 H (80.0-100.0) fL Plt Count 71 L (150-450) k/uL Sodium 119 L* (135-145) mmol/L Chloride (98-107) mmol/L Creatinine (0.66-1.25) mg/dL RBC Folate 1,579 H (280 - 791) ng/mL 08/03/20 Range/Units 10:58 RBC (4.30-5.90) m/uL Hgb (13.0-17.5) gm/dL Hct (39.0-53.0) % MCV (80.0-100.0) fL Plt Count (150-450) k/uL Sodium (135-145) mmol/L Chloride 110 H (98-107) mmol/L Creatinine 0.56 L (0.66-1.25) mg/dL RBC Folate (280 - 791) ng/mL Microbiology - Last 24 Hours (Table) 07/31/20 21:14 Gram Stain - Preliminary Sputum Sputum Culture - Preliminary Gram Neg Bacilli 08/02/20 13:13 Gram Stain - Preliminary Sputum Sputum Culture - Preliminary 07/30/20 16:38 Blood Culture - Preliminary Blood No Growth after 72 hours Assessment and Plan Assessment: -Fall with right hip fracture, with orthopedic team planning for non-operative reduction and fixation -Hyponatremia, 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 Sodium is back to normal. Switch valproic acid to Vimpat -Peripheral neuropathy on valproic acid, hold valproic acid for now due to low sodium, neurology team started the patient on Vimpat -Possible aspiration pneumonia with abnormal infiltrate in the right mid to lower lung, no respiratory symptoms. 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
--- NOTE | 2020-08-04 14:17 | P.PN ---
Subjective pleasant 60 years old male who presents because of fall. He is patient of Dr. Mg. Patient gave me information also I talked to his miss Godfrey over the phone. Apparently the patient yesterday morning he fell while he was trying to get out of the bed without losing consciousness and he had his right hip area and imaging showing impacted right hip fracture, orthopedic team evaluated the patient and the planning to non-operative fixation. 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 His PCP Dr. Mg lowered his valproic acid about 7-8 months ago because of toxicity. He follows with Dr. Cardenas oncologist for his history of CANCER. He smokes about 1 pack per day and he drinks 1-2 beers of 24 ounces through his PEG tube. He eats and drinks through PEG tube, uses marijuana at times for his chronic back pain. MAPS was checked and he is and lorazepam 2 mg daily and gabapentin Sodium level has been requested in the morning but result isn't back yet still now, discussed with the staff and it looks like it is send out. We going to order another sodium stat cable 08/01/2020 Patient is awake and alert, no chest pain or dyspnea, no abdominal pain, he has minimal pain in his right hip area and he does not eat much of the pain medication. His blood pressure was running low today flex 70/40s, he received several boluses of normal saline with slight improvement, his metoprolol was held. However patient states that his systolic blood pressure usually runs on the low side like 90s Sodium improved today to 125 after change in his valproic acid to the patent Nephrology input is appreciated continue with sodium tablets and tolvaptan Patient currently continued on cefepime for his pneumonia. 08/02/2020 Patient is more awake and in the bit today, he is worried when surgery team are going to fix his right hip fracture, discussed with the patient that the following him closely and he has also other medical problems Today he was some blood-tinged and colored phlegm discharge from his tracheostomy tube, could be related to his diagnosis of pneumonia. However we will send sputum for culture and I discussed with staff. Result is pending and patient is currently is On cefepime His sodium is back to normal today at 138 and nephrology team are following the case very closely This is a slightly up at 64 today. And I think we can start patient on subcutaneous heparin today for DVT prophylaxis and keep monitor platelets and signs of bleeding. Blood pressure is improved today and it is 112/66 over still is close monitoring 08/03/2020 Patient is more awake and alert, he looks comfortable sitting up in bed with the correction of his sodium back to normal. Episodes secondary to a site the edge, secondary to valproic acid which was discontinued and switched to Vimpat per neurology team service. Neurologist also recommended MRI of the cervical spine and they are already following the patient closely, we will keep following the recommendation however is developing bloody mucus secretions through his tracheostomy tube, patient is a known case of pneumonia and he is already on cefepime, we ordered a separate culture and sensitivity, pulmonary team already on the case , Hemoglobin is stable at 9.1, platelets is improved to 71. WBC is normal. BMP is unremarkable and sodium is 141 Sputum culture growing stenotrophonomas maltophilia Orthopedic team R on the case for his right hip fracture 08/04/2020 Patient is presently on salt tablets and fluid restriction. Patient's serum sodium is within normal limits at this time. Patient was evaluated by nephrology. 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 Patient was having hemoptysis from a severe tracheobronchitis and patient is found to have Stenotrophomonas maltophilia although this organism is mostly a colonizer patient has foul- smelling discharge from the tracheostomy. Patient is presently on cefepime. I'll consult infectious disease regarding antibiotics for discharge. Possibly of discharge tomorrow. Patient is still having hemoptysis because of which I'll monitor him 1 more day. His bilirubin occupational therapy will evaluated the patient for need of any placement. Constitutional: Denied any fatigue denied any fever. Cardio vascular: denied any chest pain, palpitations Gastrointestinal denied any nausea vomiting Pulmonary: As mentioned above. Neurologic denied any new focal deficits All inpatient medications were reviewed and appropriate changes in these medications as dictated in the interval history and assessment and plan. Objective - Vital Signs Vital signs: Vital Signs Temp 97.6 F 08/04/20 10:00 Pulse 73 08/04/20 10:00 Resp 17 08/04/20 10:00 BP 99/57 08/04/20 10:00 Pulse Ox 99 08/04/20 11:38 Intake & Output 08/03/20 08/04/20 08/04/20 18:59 06:59 18:59 Output Total 500 300 500 Balance -500 -300 -500 Weight 59 kg Output: Urine 300 Stool 500 500 Other: Voiding Method Urinal Urinal Urinal - Exam PHYSICAL EXAMINATION: GENERAL: The patient is alert and oriented x3, not in any acute distress. Thin built HEENT: Pupils are round and equally reacting to light. EOMI. No scleral icterus. No conjunctival pallor. Normocephalic, atraumatic. No pharyngeal erythema. No thyromegaly. CARDIOVASCULAR: S1 and S2 present. No murmurs, rubs, or gallops. PULMONARY: Has a tracheostomy foul-smelling discharge diffuse bilateral rhonchi ABDOMEN: Soft, nontender, nondistended, normoactive bowel sounds. No palpable organomegaly. MUSCULOSKELETAL: No joint swelling or deformity. EXTREMITIES: No cyanosis, clubbing, or pedal edema. NEUROLOGICAL: Gross neurological examination did not reveal any focal deficits. SKIN: No rashes. - Labs CBC & Chem 7: 08/03/20 10:58 08/03/20 10:58 Labs: Abnormal Lab Results - Last 24 Hours (Table) 08/01/20 Range/Units 07:05 RBC Folate 1,579 H (280 - 791) ng/mL Microbiology - Last 24 Hours (Table) 08/02/20 13:13 Gram Stain - Final Sputum Sputum Culture - Final 07/31/20 21:14 Gram Stain - Final Sputum Sputum Culture - Final Stenotrophomonas maltophilia 07/30/20 16:38 Blood Culture - Preliminary Blood No Growth after 96 hours Assessment and Plan Plan: -Fall with right hip fracture, with orthopedic team planning for non-operative reduction and fixation -Hyponatremia, 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 Sodium is back to normal. Switched valproic acid to Vimpat. Patient is also receiving salt tablets at this time -Peripheral neuropathy -Possible aspiration pneumonia with abnormal infiltrate in the right mid to lower lung, no respiratory symptoms. Continue with cefepime. Sputum cultures are showing Stenotrophomonas maltophilia which is usually a colonizing organism -Past alcohol abuse, continue with CIWA protocol and thiamine -Dependence, patient is counseled, continue with nicotine patch -Substance abuse with marijuana, patient is counseled -History of tongue cancer, status post surgical resection of the tongue and part of the mouth floor with dysphagia, status post PEG tube placement and tracheostomy -Seizure disorder -Hemoptysis: Secondary to severe tracheobronchitis: Patient will be monitored for resolution of the symptoms DVT prophylaxis: Subcutaneous heparin GI Prophylaxis: Pepcid PT/OT: Pending Prognosis is guarded
--- NOTE | 2020-08-04 15:45 | P.PN ---
Subjective Progress Note Date: 08/04/20 08/04/2020: Patient was seen for a follow-up. Patient offers no complaints. Denies headache. Denies double vision. Patient is sitting in the recliner. 08/03/2020: Patient was seen for a follow-up. Patient initially seen by Dr. Cedric Mitchell on 07/31/2020. Please refer to his note for details. Neurology follow-up requested to assess for need for MRI of the cervical spine. 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 Patient came to the hospital because he fell off the bed, fracturing right hip. No surgery was recommended. Patient was sitting in the recliner, very comfortable, in no apparent distress. He appears somewhat thin build. Objective - Vital Signs Vital signs: Vital Signs Temp 98.7 F 08/04/20 14:00 Pulse 71 08/04/20 14:00 Resp 18 08/04/20 14:00 BP 101/68 08/04/20 14:00 Pulse Ox 90 L 08/04/20 14:00 Intake & Output 08/03/20 08/04/20 08/04/20 18:59 06:59 18:59 Output Total 500 300 500 Balance -500 -300 -500 Weight 59 kg Output: Urine 300 Stool 500 500 Other: Voiding Method Urinal Urinal Urinal - Exam On examination patient is a middle aged male, appears older than his stated age. He is alert and awake fairly well oriented. patient knows that he is in [facility] in [facility], and that it is July 2020, and knows name of the current president. Speech and language functions are normal. Pupils are round and reacting, visual carrillo are full, extraocular muscles are intact. Face is symmetric. Facial sensations normal. Tongue protrudes to the midline. Hearing is normal. Shoulder shrug normal. Patient history tracheostomy. On muscle strength testing the strength is completely normal in both arms distally and proximally including biceps, triceps, deltoid, interossei and oxygen therapy teacher. The lower extremities, left leg was checked in detail and appears normal including hip flexion, ankle dorsiflexion and toe extension. In the right lower extremity only ankle dorsiflexion was checked which was normal. Hip could not be checked. Patient has possible withdrawal versus upgoing bilaterally. Chest appears clear. No murmurs. He has track in place. Mild labored breathing. Bowel sounds are present. Abdomen is soft and nontender. He has PEG tube. - Labs CBC & Chem 7: 08/03/20 10:58 08/03/20 10:58 Labs: Microbiology - Last 24 Hours (Table) 08/02/20 13:13 Gram Stain - Final Sputum Sputum Culture - Final 07/31/20 21:14 Gram Stain - Final Sputum Sputum Culture - Final Stenotrophomonas maltophilia 07/30/20 16:38 Blood Culture - Preliminary Blood No Growth after 96 hours Assessment and Plan Assessment: * Status post fall off the bed with right hip fracture. 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 * History of alcohol withdrawal seizure, last one 5 years ago. * Cervical spondylosis * Hypothyroidism. Plan: * Patient's examination shows normal strength in both upper and lower e xtremities (proximal right leg not checked in detail because of recent fracture). I do not see need for urgent MRI of the cervical spine at this time. May consider it at a later time, when safe from infectious disease standpoint. * Patient's right hip fracture being managed conservatively. * Vitamin B12 506, RBC folate normal, hemoglobin A1c 5.1 normal, TSH is elevated 10.8 with normal free T4 0.96. May need adjustment of thyroid replacement. * Neurologically clear. Please reconsult neurology if any other concerns.
--- NOTE | 2020-08-04 16:29 | P.PN ---
Subjective Progress Note Date: 08/04/20 Principal diagnosis: Fall with right hip fracture, possible aspiration pneumonia. 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 The patient needed his procedures after he underwent surgical resection with oral reconstructive surgery. The patient is known to have other comorbidities including COPD, seizure disorder and history of depression. His last hospitalization was back in April 2020 when the patient came into the hospital because of purulent discharge from his tracheostomy tube in addition to significant hyponatremia that was assumed to be excessive free water ingestion through his PEG tube. At that time, the patient had an aerobic infection and he was treated with Unasyn and his sodium was corrected and the patient was discharged. The patient came back to the emergency department yesterday for right hip pain. He is still poor historian. He allegedly got up and fell on the right side landing on his right hip. No head trauma. No neck trauma. He is quite debilitated and has a poor baseline performance and functional status. Further investigation in the emergency department included a CAT scan of the head and C-spine that showed no acute abnormalities. X-ray of the hip and the pelvis showed acute process cervical fracture of the femoral neck of the right femur. There was also demineralizat ion. Underlying or the overlying soft tissue was none remarkable.. Chest x-ray showed focal infiltrates in the right midlung in the right lower lung area. No leukocytosis. Coagulation profile within normal limits. His sodium level was 121. Renal function was normal. The alvarez virus/Covid 19 screen came back negative. Orthopedic surgery was consulted. His EKG showed no acute abnormalities and was essentially unremarkable with a normal sinus rhythm. The patient is currently on trach collar with 8 L of oxygen with an FiO2 of 35% with a pulse ox of 97-99%. He was given a dose of cefepime in the emergency department he was hospitalized. On today's evaluation, the patient was seen by nephrology. Hyponatremia was addressed. Note that overnight the patient received normal saline and since then the patient's sodium has dropped further. 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 The patient was given sodium chloride tablets. The patient stated that he was not using free water through his PEG. He does consume a lot of alcohol and the exact amount is not known. The normal saline was stopped. Fluid restriction was implemented. Mother the patient is also on Depakote which could possibly contribute to the hyponatremia. The patient will be also seen by neurology regarding the utility of Depakote his condition. On 08/01/2020, the patient's sodium level is not back yet from the morning blood work. He is currently being restricted on IV fluids. He was given salt tablets. Mental status is adequate and the patient is able to communicate. He still having respiratory secretions and the patient is currently on IV cefepime. No nausea. No vomiting. No diarrhea. Orthopedic surgeries on the case balance standby regarding the need for hip surgery. No nausea. No vomiting. N o diarrhea. No abdominal pain. On today's evaluation of 08/02/2020, the patient is awake and alert. The patient's was given fluid restriction in addition to salt tablets. Sodium level immediately came up to 138. He has no fatigue or tiredness. Note that he has multiple medical problems and comorbidities. He also has a right hip fracture awaiting surgery. He does have some respiratory secretions. Cultures were negative. I was concerned of a infection and treat this patient antibiotics. Repeat x-ray is to be done tomorrow. Meanwhile, the patient is still on oxygen and the patient is currently on 5 L trach collar approximating a 28% FiO2. No trouble breathing at this point. The patient has a Shiley tracheostomy tube. The patient has had a long-term tracheostomy tube due to oral cancer in extensive oral surgery and reconstruction. Is receiving enteral feeding for nutritional support reevaluated today on 08/03/20, patient is awake, sitting at a bedside chair, in no distress. Follow-up chest x-ray showed chronic changes, and no evidence of acute process, apparently has a right-sided pneumonia has resolved. No focal infiltrate was noted on the chest x-ray today. Patient had multiple medical problems on this admission including fall with hip fracture, and he was being considered for non-operative reduction and fixation of the hip fracture. His other problems included hyponatremia, peripheral neuropathy, possible aspiration pneumonia, history of alcohol abuse, and history of marijuana abuse. History of lung cancer with previous surgical resection of the tongue and part of the floor of the mouth. Pulmonary-carpenter, the patient seems to be in no distress, he marshal ins on trach collar, O2 saturation is in the 90s. Patient was reevaluated today on 08/04/20, patient remains on the fourth floor, seems to be quite comfortable, however will were asked to see him because the patient is experiencing intermittent episodes of blood-tinged sputum. Sometimes the patient had episodes of magdiel hemoptysis. Especially upon coughing. Last chest x-ray from 08/03 showed no evidence of acute process. Patient had chronic changes but no acute process noted. And his tracheostomy tube was noted to be intact. Patient denies any significant shortness of breath, he is on 28% FiO2, and his O2 saturation is ranging between 90 up to 99%. Patient has no fever no chills, his temperature is 98.7 today. He is hemodynamically stable, however considering his recurrent episodes of hemoptysis, I recommended a CT angiogram of the chest, may or may not decide on bronchoscopy depending on the CT of the chest findings. Patient remains on cefepime, he is not on any anticoagulation therapy, he was on baby aspirin which was placed on hold temporarily. In spite of his recurrent hemoptysis, his hemoglobin is 9.1 today. And it was 8.9 yesterday. Patient was tested twice for covid 19, and he had negative PCR 2. Objective - Vital Signs Vital signs: Vital Signs Temp 98.7 F 08/04/20 14:00 Pulse 71 08/04/20 14:00 Resp 18 08/04/20 14:00 BP 101/68 08/04/20 14:00 Pulse Ox 90 L 08/04/20 14:00 Intake & Output 08/03/20 08/04/20 08/04/20 18:59 06:59 18:59 Output Total 500 300 500 Balance -500 -300 -500 Weight 59 kg Output: Urine 300 Stool 500 500 Other: Voiding Method Urinal Urinal Urinal - Exam GENERAL: Revealed a 60-year-old white male in no distress. -HEENT: Pupils are round and equally reacting to light. EOMI. No scleral icterus. No conjunctival pallor. Tracheostomy is unremarkable. Trach collar in place. CARDIOVASCULAR: S1 and S2 present. No murmurs, rubs, or gallops. -PULMONARY: Chest is clear to auscultation, no wheezing or crackles. ABDOMEN: Soft, nontender, nondistended, normoactive bowel sounds. No palpable organomegaly. MUSCULOSKELETAL: No joint swelling or deformity. -EXTREMITIES: No cyanosis, clubbing, or pedal edema. Right hip tenderness NEUROLOGICAL: Gross neurological examination did not reveal any focal deficits. SKIN: No rashes. No petechiae - Labs CBC & Chem 7: 08/03/20 10:58 08/03/20 10:58 Labs: Microbiology - Last 24 Hours (Table) 08/02/20 13:13 Gram Stain - Final Sputum Sputum Culture - Final 07/31/20 21:14 Gram Stain - Final Sputum Sputum Culture - Final Stenotrophomonas maltophilia 07/30/20 16:38 Blood Culture - Preliminary Blood No Growth after 96 hours Assessment and Plan Assessment: Impression: Recurrent hemoptysis, most likely tracheobronchitis related or could be irritation at the distal end of the tracheostomy tube. Fall with right-sided hip fracture Right lung pneumonia possibly aspiration pneumonia , resolved. Hyponatremia secondary to SIADH. Squamous cell carcinoma of the oral cavity requiring previous resection and tracheostomy as well as PEG tube placement, no evidence of bleeding from the oral mucosa or from the lung area./Floor of the mouth History of sacral decubitus ulcer History of underlying COPD History of seizure disorder History of GERD Recommendation: Continue antibiotics. We will arrange for CT angiogram of the chest. Hold any anticoagulation treatment, even aspirin. Continue present supportive care measures. Based on the CT of the chest further recommendations to follow. No plans for immediate bronchoscopy at this point. Continue aspiration precautions. Continue feeding via PEG tube. We'll continue to follow. Time with Patient: Less than 30
--- NOTE | 2020-08-04 17:38 | CDI ---
Documentation Clarification Form Date: 08/04/2020 05:17:16 PM From: Sharon Adams RN, CCDS Admit Date: 07/30/2020 04:33:00 PM Patient Name: Blake Brown Visit Number: [id number] Discharge Date: ATTENTION: The Clinical Documentation Specialists (CDI) and [facility] Coding Staff appreciate your assistance in clarifying documentation. Please respond to the clarification below the line at the bottom and electronically sign. The CDI & [facility] Coding staff will review the response and follow-up if needed. Please note: Queries are made part of the Legal Health Record. If you have any questions, please contact the author of this message via ITS. Dr. Tyree Gutiérrez Conflicting documentation has been found in the medical record: Pulmonary 08/03-08/04: Erickson virus /Covid 19 screen came back negative Right lung pneumonia possibly aspiration pneumonia. Orthopedic Evaluation 07/31 and subsequent progress notes: pneumonia and presumptive Covid pneumonia. Treatment for his Covid pneumonia History/Risk Factors: oral cancer, Seizure disorder, Alcohol abuse daily, Current every day smoker, PEG tube, tracheostomy tube Clinical Indicators: 60-year-old male present for right hip pain after fall. Per orthopedic documentation he is in ongoing treatment for Covid Pneumonia. 08/04 Vital signs: 101/68 71 18 98.7 90 % on FIO2 Trach collar 07/30 Coronavirus: Not Detected 08/03 Coronavirus: Not Detected 08/04 Coronavirus: Not Detected Treatment: Lab Testing for Coronavirus x3 (not detected) In your opinion, what is the most clinically appropriate diagnosis for this patient? Erickson virus/Covid -19 ruled out Other explanation of clinical findings Unable to determine (no explanation for clinical findings) (Last Revision: November 2017) No Covid 19 MTDD
--- NOTE | 2020-08-04 18:06 | CT ---
EXAMINATION TYPE: CT angio chest DATE OF EXAM: 08/04/2020 5:16 PM COMPARISON: CT September 15, 2018 HISTORY: PE. Increased secretions and shortness of breath. CT DLP: 264.3 mGycm Automated exposure control for dose reduction was used. CONTRAST: CTA scan of the thorax is performed with IV Contrast, patient injected with 100 mL of Isovue 370, pul monary embolism protocol. MIP images are created and reviewed. FINDINGS: LUNGS: Tracheostomy tube is redemonstrated. Scattered irregular nodules throughout the right middle a nd lower lobes are now present. For reference 2.3 x 1.9 cm superior right lower lobe nodule axial florian ge 63 with adjacent smaller nodule may have tiny central cavitation. There is 1.6 x 1.2 cm right midd le lobe nodule axial image 87. There is 1.8 x 1.5 cm superior lateral right lower lobe nodule axial i mage 48. Left lung is clear. No pleural effusion or pneumothorax seen bilaterally. MEDIASTINUM: There is satisfactory enhancement of the pulmonary artery and its branches, there is no CT evidence for pulmonary embolism. There are no greater than 1 cm hilar or mediastinal lymph nodes. No cardiomegaly or pericardial effusion is seen. Mild to moderate left ventricular dilatation. Dil ated fluid-filled esophagus proximal to midportion with gradual tapering distally OTHER: Scoliotic curvature with multilevel spurring in the spine. Mild height loss involving the ant erior T9 vertebra. IMPRESSION: 1. No CT evidence for acute pulmonary embolism. 2. Scattered right sided mid to lower lung nodules. Finding could reflect metastatic disease. Septic emboli or infectious spread is in differential. Correlate clinically.
--- NOTE | 2020-08-04 18:17 | CDI ---
Documentation Clarification Form Date: 08/04/2020 05:40:00 PM From: Sharon Adams RN, CCDS Admit Date: 07/30/2020 04:33:00 PM Patient Name: Blake Brown Visit Number: [id number] Discharge Date: ATTENTION: The Clinical Documentation Specialists (CDI) and [facility] Coding Staff appreciate your assistance in clarifying documentation. Please respond to the clarification below the line at the bottom and electronically sign. The CDI & [facility] Coding staff will review the response and follow-up if needed. Please note: Queries are made part of the Legal Health Record. If you have any questions, please contact the author of this message via ITS. Dr. Tyree Gutiérrez Cachexic, very debilitated has been documented in ED assessment. Please render your opinion on this assessment. History/Risk Factors: COPD, Oral CA (2015) Tracheostomy tube, Peg tube Clinical Indicators: 60-year-old male who present on 07/30 with complaints of right hip pain ruled in for fracture. Nutritional assessment document intake poor. Labs: Na 119, Total Protein 7.3, Albumin 3.6 Current BMI: 16.2, Underweight Insufficient energy intake: yes, poor baseline performance and functional status, weak Treatment: Zofran 4 mg IVP q 8 prn Protonix 40 IV daily Tube feedings 240 ml 5 times per day (1200 ml/day) Dietary Consult: yes, increased nutrient needs, wound healing and COPD Monitor tube feedings In your professional opinion, can you please clarify if these findings signify one of the following conditions? Mild Protein-Calorie Malnutrition Moderate Protein-Calorie Malnutrition Severe Protein-Calorie Malnutrition Other condition, please specify Unable to determine (Last Revision: February 2019) None of the above MTDD
--- NOTE | 2020-08-04 18:33 | CDI ---
Documentation Clarification Form Date: 08/04/2020 06:18:19 PM From: Sharon Adams RN, CCDS Admit Date: 07/30/2020 04:33:00 PM Patient Name: Blake Brown Visit Number: [id number] Discharge Date: ATTENTION: The Clinical Documentation Specialists (CDI) and [facility] Coding Staff appreciate your assistance in clarifying documentation. Please respond to the clarification below the line at the bottom and electronically sign. The CDI & [facility] Coding staff will review the response and follow-up if needed. Please note: Queries are made part of the Legal Health Record. If you have any questions, please contact the author of this message via ITS. Dr. Tyree Gutiérrez A pressure ulcer was documented in the ED evaluation on 07/30 and nutritional assessment on 07/31. Please render your opinion and the assessment and findings and POA indicators History/Risk Factors: COPD, Oral CA (2015) Tracheostomy tube, Peg tube Clinical Indicators: 60-year-old male present after a fall at home. Physical findings per ED and nutrition has physical findings stage II pressure injury on buttock Location: Buttock Wound description: Scant amount of drainage Treatment: Monitor Skin integrity Elements for accurate and compliant documentation of an ulcer: *The location/laterality of the ulcer *Etiology (decubitus/pressure, diabetic, PVD) *Stage I-IV, Unstageable, Suspected Deep Tissue Injury (To the deepest stage) *If the ulcer was present at admission (POA) or occurred after admission In your professional opinion, can you please clarify the diagnosis, location, laterality and whether present on admission (POA): Stage 1 Pressure/Decubitus Ulcer (intact skin, non-blanching redness of local area) Stage 2 Pressure/Decubitus Ulcer (Partial thickness, loss of dermis, pink wound bed) Stage 3 Pressure/Decubitus Ulcer (Full thickness tissue loss) Stage 4 Pressure/Decubitus Ulcer (Full thickness tissue loss with exposed bone, tendon, or muscle. May have slough or eschar present) Unstageable Other condition, please specify Unable to determine Please indicate etiology of pressure ulcer (if known). (Last Revision: May 2017) Unable to determine MTDD
--- NOTE | 2020-08-05 | CONS ---
CONSULTATION DATE OF SERVICE: 08/04/2020 REASON FOR CONSULTATION: Positive sputum culture with Stenotrophomonas and discharge antibiotic recommendation. 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 Patient presented to hospital on 07/30/2020, five days ago after the patient did have a fall and when he was trying to get up the patient subsequently developed pain in the right hip area. The patient did have x-rays of the hip with evidence of a right hip fracture. The patient had been evaluated by Orthopedics and has recommended a nonsurgical treatment. During this hospital stay, the patient has been afebrile and no fever has been recorded. The patient did have a normal white count and the patient did have normal procalcitonin that was checked on admission of 0.04. Liver enzymes have been normal. The patient did have a chest x-ray on admission, chronic changes with new focal infiltrate right mid to lower lung. A chest x-ray done on the did show chronic changes without evidence for acute pulmonary process. The patient did have sputum obtained which did show Stenotrophomonas maltophilia. The patient had been treated with cefepime 2 grams q.12. Infectious Disease was consulted today with for outpatient IV antibiotic therapy. The patient at time of evaluation is up in the chair. Has been complaining of mostly blood-stained sputum through his trach. The patient denies having any chest pain or shortness of breath. Minimal cough. No nausea, no vomiting. No abdominal pain. No diarrhea. REVIEW OF SYSTEMS: Positive points have been mentioned in HPI. Rest of systems are negative. 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 PAST SURGICAL HISTORY: Oral surgery for cancer removal, tracheostomy, PEG tube placement. SOCIAL HISTORY: Current everyday smoker. Did have history of heavy drinking. No drug use. FAMILY HISTORY: Unavailable as the patient was adopted. ALLERGIES: No known drug allergies. MEDICATIONS: Medications include the patient is currently on Tylenol, baclofen, cefepime 2 grams q.12. He is on folic acid, Neurontin, Ativan, Narcan, nicotine patch, Zofran, Protonix, Compazine, vitamin B1. PHYSICAL EXAMINATION: Blood pressure 154/64, pulse of 68, temperature of 97.6. He is 92% on trach collar. General description is a middle-aged male up in the chair in no distress. No tachypnea or accessory muscle of respiration use. HEENT EXAMINATION: No pallor or scleral icterus. Trach site with minimal blood-stained sputum. LUNGS: Unlabored breathing, decreased intensity of breath sounds, no wheeze or crackle. HEART: S1, S2. Regular rate and rhythm. ABDOMEN: Soft, no tenderness. EXTREMITIES: No edema of the feet. LABS: Hemoglobin 9.1 with white count of 5.8, and no elevated white count during this admission. BUN of 8, creatinine 0.47. Erickson PCR times 3 negative. Sputum has Stenotrophomonas. Blood culture negative. DIAGNOSTIC IMPRESSION AND PLAN: Patient presenting to the hospital after the patient did have a fall with right hip fracture being treated conservatively without surgical intervention in this patient who did have a chronic trach. A sputum obtained on the came back positive for Stenotrophomonas. Repeat sputum on the came back usual respiratory taj with concern for possible colonization of the trach versus tracheobronchitis as the patient did have some blood-stained sputum, though no fever or elevated white count. The chest x-ray did not show any acute infiltrate. PLAN: Continue with IV cefepime while inpatient can be transitioned to a short course of oral Bactrim DS one twice a day for 5 days on discharge. This was discussed with the admitting physician who was working on discharge. Thank you for this consultation. MMODL / IJN: [id number] /
[2020-08-05] MEDS: PROCHLORPERAZINE 10 MG TAB PEG/G-TUBE SCH ×3 (03:41→15:24)
[2020-08-05 07:02] LABS: Basophils # (A) 0.1 k/uL (0-0.2); Basophils % (A) 1 %; Eosinophils # (A) 0.3 k/uL (0-0.7); Eosinophils % (A) 6 %; HCT 29.8 % (39.0-53.0); HGB 9.8 gm/dL (13.0-17.5); Lymphocytes # (A) 0.9 k/uL (1.0-4.8); Lymphocytes % (A) 16 %; MCH 33.1 pg (25.0-35.0); MCHC 32.9 g/dL (31.0-37.0); MCV 100.6 fL (80.0-100.0); Mean Platelet Volume 8.7; Monocytes # (A) 0.4 k/uL (0-1.0); Monocytes % (A) 8 %; Neutrophils # (A) 3.8 k/uL (1.3-7.7); Neutrophils % (A) 67 %; RBC 2.96 m/uL (4.30-5.90); RDW 12.9 % (11.5-15.5); WBC 5.6 k/uL (3.8-10.6)
[2020-08-05 07:17] LABS: Platelet Count 49 k/uL (150-450)
[2020-08-05] MEDS: PANTOPRAZOLE 40 MG/10 ML VIAL IV SCH (07:48)
[2020-08-05] MEDS: NICOTINE 21MG/24HR PATCH TRANSDERM SCH (07:49)
[2020-08-05] MEDS: MORPHINE SULFATE 4 MG/ML SYRINGE IV PRN ×2 (07:49→13:39)
[2020-08-05] MEDS: CEFEPIME 2 GM in SODIUM CHLORIDE 0.9% 100 ML IVPB SCH (07:49)
[2020-08-05] MEDS: SODIUM CHLORIDE TAB 1 GM TAB PO SCH (07:50)
[2020-08-05] MEDS: MIDODRINE 5 MG TAB PO SCH ×2 (07:50→15:24)
[2020-08-05] MEDS: BACLOFEN 10 MG TAB PEG/G-TUBE SCH ×2 (07:50→15:24)
[2020-08-05] MEDS: FOLIC ACID 1 MG TAB PEG/G-TUBE SCH (07:50)
[2020-08-05] MEDS: LACOSAMIDE 50 MG TABLET PEG/G-TUBE SCH (07:50)
[2020-08-05] MEDS: GABAPENTIN 300 MG CAP PEG/G-TUBE SCH ×2 (07:50→15:24)
[2020-08-05] MEDS: THIAMINE 100 MG TAB PO SCH (07:50)
[2020-08-05] MEDS: CYANOCOBALAMIN 500 MCG TAB PO SCH (07:50)
[2020-08-05 10:00] LABS: African American GFR (CKD) 137.5 (60.0-200.0); Anion Gap 6.7 mmol/L (4.00-12.00); C Reactive Protein 2.1 mg/dL (0.0-0.8); Calcium 9.2 mg/dL (8.7-10.3); Carbon Dioxide 31.3 mmol/L (21.6-31.8); Magnesium 1.8 mg/dL (1.5-2.4); Non-African American GFR(CKD) 118.6 (60.0-200.0); Potassium 3.9 mmol/L (3.5-5.5)
--- NOTE | 2020-08-05 10:48 | P.PN ---
Subjective Patient is seen in follow-up for hyponatremia. Sodium level 138 today. He is receiving tube feeding. No active complaints. No changes overnight. Vital signs are stable. General: The patient appeared well nourished and normally developed. HEENT: Head exam is unremarkable. Neck is without jugular venous distension. LUNGS: Breath sounds decreased. HEART: Rate and Rhythm are regular. ABDOMEN: Soft, nontender. EXTREMITITES: No edema. Objective - Vital Signs Vital signs: Vital Signs Temp 97.5 F L 08/05/20 09:41 Pulse 53 L 08/05/20 09:41 Resp 17 08/05/20 09:41 BP 103/62 08/05/20 09:41 Pulse Ox 95 08/05/20 05:27 Intake & Output 08/04/20 08/05/20 08/05/20 18:59 06:59 18:59 Output Total 500 850 Balance -500 -850 Weight 56.1 kg Output: Urine 850 Stool 500 Other: Voiding Method Urinal Urinal - Labs CBC & Chem 7: 08/05/20 06:05 08/05/20 06:05 Labs: Abnormal Lab Results - Last 24 Hours (Table) 08/05/20 08/05/20 Range/Units 06:05 06:05 RBC 2.96 L (4.30-5.90) m/uL Hgb 9.8 L (13.0-17.5) gm/dL Hct 29.8 L (39.0-53.0) % MCV 100.6 H (80.0-100.0) fL Plt Count 49 L (150-450) k/uL Lymphocytes # 0.9 L (1.0-4.8) k/uL Creatinine 0.5 L (0.6-1.5) mg/dL BUN/Creatinine Ratio 38.00 H (12.00-20.00) Ratio C-Reactive Protein 2.1 H (0.0-0.8) mg/dL Microbiology - Last 24 Hours (Table) 08/04/20 Unknown Gram Stain - Preliminary Sputum Sputum Culture - Preliminary 07/30/20 16:38 Blood Culture - Preliminary Blood No Growth after 120 hours 08/02/20 13:13 Gram Stain - Final Sputum Sputum Culture - Final 07/31/20 21:14 Gram Stain - Final Sputum Sputum Culture - Final Stenotrophomonas maltophilia Assessment and Plan Plan: Assessment: 1. Hyponatremia secondary to SIADH. Resolved. Cortisol level normal. 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 3. Right hip fracture. 4. Pneumonia versus tracheobronchitis maintained on antibiotics. Infectious disease following. Plan: Maintain salt tab once daily. Maintain tube feeding. Anticipate discharge soon.
--- NOTE | 2020-08-05 11:29 | P.PN ---
Subjective pleasant 60 years old male who presents because of fall. He is patient of Dr. Mg. Patient gave me information also I talked to his miss Godfrey over the phone. Apparently the patient yesterday morning he fell while he was trying to get out of the bed without losing consciousness and he had his right hip area and imaging showing impacted right hip fracture, orthopedic team evaluated the patient and the planning to non-operative fixation. 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 His PCP Dr. Mg lowered his valproic acid about 7-8 months ago because of toxicity. He follows with Dr. Cardenas oncologist for his history of CANCER. He smokes about 1 pack per day and he drinks 1-2 beers of 24 ounces through his PEG tube. He eats and drinks through PEG tube, uses marijuana at times for his chronic back pain. MAPS was checked and he is and lorazepam 2 mg daily and gabapentin Sodium level has been requested in the morning but result isn't back yet still now, discussed with the staff and it looks like it is send out. We going to order another sodium stat cable 08/01/2020 Patient is awake and alert, no chest pain or dyspnea, no abdominal pain, he has minimal pain in his right hip area and he does not eat much of the pain medication. His blood pressure was running low today flex 70/40s, he received several boluses of normal saline with slight improvement, his metoprolol was held. However patient states that his systolic blood pressure usually runs on the low side like 90s Sodium improved today to 125 after change in his valproic acid to the patent Nephrology input is appreciated continue with sodium tablets and tolvaptan Patient currently continued on cefepime for his pneumonia. 08/02/2020 Patient is more awake and in the bit today, he is worried when surgery team are going to fix his right hip fracture, discussed with the patient that the following him closely and he has also other medical problems Today he was some blood-tinged and colored phlegm discharge from his tracheostomy tube, could be related to his diagnosis of pneumonia. However we will send sputum for culture and I discussed with staff. Result is pending and patient is currently is On cefepime His sodium is back to normal today at 138 and nephrology team are following the case very closely This is a slightly up at 64 today. And I think we can start patient on subcutaneous heparin today for DVT prophylaxis and keep monitor platelets and signs of bleeding. Blood pressure is improved today and it is 112/66 over still is close monitoring 08/03/2020 Patient is more awake and alert, he looks comfortable sitting up in bed with the correction of his sodium back to normal. Episodes secondary to a site the edge, secondary to valproic acid which was discontinued and switched to Vimpat per neurology team service. Neurologist also recommended MRI of the cervical spine and they are already following the patient closely, we will keep following the recommendation however is developing bloody mucus secretions through his tracheostomy tube, patient is a known case of pneumonia and he is already on cefepime, we ordered a separate culture and sensitivity, pulmonary team already on the case , Hemoglobin is stable at 9.1, platelets is improved to 71. WBC is normal. BMP is unremarkable and sodium is 141 Sputum culture growing stenotrophonomas maltophilia Orthopedic team R on the case for his right hip fracture 08/04/2020 Patient is presently on salt tablets and fluid restriction. Patient's serum sodium is within normal limits at this time. Patient was evaluated by nephrology. 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 Patient was having hemoptysis from a severe tracheobronchitis and patient is found to have Stenotrophomonas maltophilia although this organism is mostly a colonizer patient has foul- smelling discharge from the tracheostomy. Patient is presently on cefepime. I'll consult infectious disease regarding antibiotics for discharge. Possibly of discharge tomorrow. Patient is still having hemoptysis because of which I'll monitor him 1 more day. His bilirubin occupational therapy will evaluated the patient for need of any placement. 08/05/2020 Patient had continued hemoptysis because of the chest CT of the chest was opted which is consistent with the pulmonary nodules probably metastatic disease there is no evidence of pneumonia. Infectious disease a valid the patient is recommending Bactrim upon discharge patient is still having mild of this is because of which patient will not be discharged today. Constitutional: Denied any fatigue denied any fever. Cardio vascular: denied any chest pain, palpitations Gastrointestinal denied any nausea vomiting Pulmonary: As mentioned above. Neurologic denied any new focal deficits All inpatient medications were reviewed and appropriate changes in these medications as dictated in the interval history and assessment and plan. Objective - Vital Signs Vital signs: Vital Signs Temp 97.5 F L 08/05/20 09:41 Pulse 53 L 08/05/20 09:41 Resp 17 08/05/20 09:41 BP 103/62 08/05/20 09:41 Pulse Ox 95 08/05/20 05:27 Intake & Output 08/04/20 08/05/20 08/05/20 18:59 06:59 18:59 Output Total 500 850 Balance -500 -850 Weight 56.1 kg Output: Urine 850 Stool 500 Other: Voiding Method Urinal Urinal - Exam PHYSICAL EXAMINATION: GENERAL: The patient is alert and oriented x3, not in any acute distress. Thin built HEENT: Pupils are round and equally reacting to light. EOMI. No scleral icterus. No conjunctival pallor. Normocephalic, atraumatic. No pharyngeal erythema. No thyromegaly. And has a tracheostomy in place CARDIOVASCULAR: S1 and S2 present. No murmurs, rubs, or gallops. PULMONARY: Clear to escalation today no rhonchi today. ABDOMEN: Soft, nontender, nondistended, normoactive bowel sounds. No palpable organomegaly. MUSCULOSKELETAL: No joint swelling or deformity. EXTREMITIES: No cyanosis, clubbing, or pedal edema. NEUROLOGICAL: Gross neurological examination did not reveal any focal deficits. SKIN: No rashes. - Labs CBC & Chem 7: 08/05/20 06:05 08/05/20 06:05 Labs: Abnormal Lab Results - Last 24 Hours (Table) 08/05/20 08/05/20 Range/Units 06:05 06:05 RBC 2.96 L (4.30-5.90) m/uL Hgb 9.8 L (13.0-17.5) gm/dL Hct 29.8 L (39.0-53.0) % MCV 100.6 H (80.0-100.0) fL Plt Count 49 L (150-450) k/uL Lymphocytes # 0.9 L (1.0-4.8) k/uL Creatinine 0.5 L (0.6-1.5) mg/dL BUN/Creatinine Ratio 38.00 H (12.00-20.00) Ratio C-Reactive Protein 2.1 H (0.0-0.8) mg/dL Microbiology - Last 24 Hours (Table) 08/04/20 Unknown Gram Stain - Preliminary Sputum Sputum Culture - Preliminary 07/30/20 16:38 Blood Culture - Preliminary Blood No Growth after 120 hours 08/02/20 13:13 Gram Stain - Final Sputum Sputum Culture - Final 07/31/20 21:14 Gram Stain - Final Sputum Sputum Culture - Final Stenotrophomonas maltophilia Assessment and Plan Plan: -Fall with right hip fracture, with orthopedic team planning for non-operative reduction and fixation -Hyponatremia, 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 Sodium is back to normal. Switched valproic acid to Vimpat. Patient is also receiving salt tablets at this time -Peripheral neuropathy -No evidence of aspiration pneumonia at this time. Patient also appears to have severe tracheal bronchitis presently on cefepime and patient will probably will be discharged on the Bactrim. -Hemoptysis: Patient had a computed tomography scan which is showing multiple pulmonary nodules and possibility of metastatic disease. Discussed with pulmonary. -Past alcohol abuse, continue with CIWA protocol and thiamine -Dependence, patient is counseled, continue with nicotine patch -Substance abuse with marijuana, patient is counseled -History of tongue cancer, status post surgical resection of the tongue and part of the mouth floor with dysphagia, status post PEG tube placement and tracheostomy -Seizure disorder DVT prophylaxis: Subcutaneous heparin GI Prophylaxis: Pepcid PT/OT: Pending Prognosis is guarded
--- NOTE | 2020-08-05 13:26 | P.PN ---
Subjective Progress Note Date: 08/05/20 Principal diagnosis: Right hip fracture, possible aspiration pneumonia 59-year-old patient with known history of squamous cell carcinoma of the oral cavity was undergoing done insertion of a tracheostomy tube and PEG tube for enteral feeding and nutritional support. The patient needed his procedures after he underwent surgical resection with oral reconstructive surgery. The patient is known to have other comorbidities including COPD, seizure disorder and history of depression. His last hospitalization was back in April 2020 when the patient came into the hospital because of purulent discharge from his tracheostomy tube in addition to significant hyponatremia that was assumed to be excessive free water ingestion through his PEG tube. At that time, the patient had an aerobic infection and he was treated with Unasyn and his sodium was corrected and the patient was discharged. The patient came back to the emergency department yesterday for right hip pain. He is still poor historian. He allegedly got up and fell on the right side landing on his right hip. No head trauma. No neck trauma. He is quite debilitated and has a poor baseline performance and functional status. Further investigation in the emergency department included a CAT scan of the head and C-spine that showed no acute abnormalities. X-ray of the hip and the pelvis showed acute process cervical fracture of the femoral neck of the right femur. There was also demineralization. Underlying or the overlying soft tissue was none remarkable.. Chest x-ray showed focal infiltrates in the right midlung in the right lower lung area. No leukocytosis. Coagulation profile within normal limits. His sodium level was 121. Renal function was normal. The erickson virus/Covid 19 screen came back negative. Orthopedic surgery was consulted. His EKG showed no acute abnormalities and was essentially unremarkable with a normal sinus rhythm. The patient is currently on trach collar with 8 L of oxygen with an FiO2 of 35% with a pulse ox of 97-99%. He was given a dose of cefepime in the emergency department he was hospitalized. On today's evaluation, the patient was seen by nephrology. Hyponatremia was addressed. Note that overnight the patient received normal saline and since then the patient's sodium has dropped further. 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 The patient was given sodium chloride tablets. The patient stated that he was not using free water through his PEG. He does consume a lot of alcohol and the exact amount is not known. The normal saline was stopped. Fluid restriction was implemented. Mother the patient is also on Depakote which could possibly contribute to the hyponatremia. The patient will be also seen by neurology regarding the utility of Depakote his condition. On 08/01/2020, the patient's sodium level is not back yet from the morning blood work. He is currently being restricted on IV fluids. He was given salt tablets. Mental status is adequate and the patient is able to communicate. He still having respiratory secretions and the patient is currently on IV cefepime. No nausea. No vomiting. No diarrhea. Orthopedic surgeries on the case balance standby regarding the need for hip surgery. No nausea. No vomiting. No diarrhea. No abdominal pain. On today's evaluation of 08/02/2020, the patient is awake and alert. The pat ient's was given fluid restriction in addition to salt tablets. Sodium level immediately came up to 138. He has no fatigue or tiredness. Note that he has multiple medical problems and comorbidities. He also has a right hip fracture awaiting surgery. He does have some respiratory secretions. Cultures were negative. I was concerned of a infection and treat this patient antibiotics. Repeat x-ray is to be done tomorrow. Meanwhile, the patient is still on oxygen and the patient is currently on 5 L trach collar approximating a 28% FiO2. No trouble breathing at this point. The patient has a Shiley tracheostomy tube. The patient has had a long-term tracheostomy tube due to oral cancer in extensive oral surgery and reconstruction. Is receiving enteral feeding for nutritional support reevaluated today on 08/03/20, patient is awake, sitting at a bedside chair, in no distress. Follow-up chest x-ray showed chronic changes, and no evidence of acute process, apparently has a right-sided pneumonia has resolved. No focal infiltrate was noted on the chest x-ray today. Patient had multiple medical problems on this admission including fall with hip fracture, and he was being considered for non-operative reduction and fixation of the hip fracture. His other problems included hyponatremia, peripheral neuropathy, possible aspiration pneumonia, history of alcohol abuse, and history of marijuana abuse. History of lung cancer with previous surgical resection of the tongue and part of the floor of the mouth. Pulmonary-carpenter, the patient seems to be in no distress, he remains on trach collar, O2 saturation is in the 90s. Patient was reevaluated today on 08/04/20, patient remains on the fourth floor, seems to be quite comfortable, however will were asked to see him because the p atient is experiencing intermittent episodes of blood-tinged sputum. Sometimes the patient had episodes of magdiel hemoptysis. Especially upon coughing. Last chest x-ray from 08/03 showed no evidence of acute process. Patient had chronic changes but no acute process noted. And his tracheostomy tube was noted to be intact. Patient denies any significant shortness of breath, he is on 28% FiO2, and his O2 saturation is ranging between 90 up to 99%. Patient has no fever no chills, his temperature is 98.7 today. He is hemodynamically stable, however considering his recurrent episodes of hemoptysis, I recommended a CT angiogram of the chest, may or may not decide on bronchoscopy depending on the CT of the chest findings. Patient remains on cefepime, he is not on any anticoagulation therapy, he was on baby aspirin which was placed on hold temporarily. In spite of his recurrent hemoptysis, his hemoglobin is 9.1 today. And it was 8.9 yesterday. Patient was tested twice for covid 19, and he had negative PCR 2. The patient is seen today 08/05/2020 in follow-up on the regular medical floor. He is currently sitting up in a chair at the bedside. Awake and alert in no acute distress. He remains on a trach collar and maintaining O2 saturation in the mid 90s. He's been afebrile. Sputum culture was positive for Stenotrophomonas maltophilia. He is currently on cefepime. Follow-up cultures are pending. White count 5.6. Hemoglobin 9.8. Sodium 138. Potassium 3.9. Creatinine 0.5. Erickson virus by PCR not detected 3. CAT scan of the chest revealed no evidence of pulmonary embolism. There were scattered right-sided mid to lower lung nodules. Findings could be reflect metastatic disease. Objective - Vital Signs Vital signs: Vital Signs Temp 97.5 F L 08/05/20 09:41 Pulse 53 L 08/05/20 09:41 Resp 17 08/05/20 09:41 BP 103/62 08/05/20 09:41 Pulse Ox 95 08/05/20 05:27 Intake & Output 08/04/20 08/05/20 08/05/20 18:59 06:59 18:59 Output Total 500 850 500 Balance -500 -850 -500 Weight 56.1 kg Output: Urine 850 Stool 500 500 Other: Voiding Method Urinal Urinal Urinal - Exam GENERAL: Revealed a 60-year-old white male in no distress. On 28% FiO2 via trach collar -HEENT: Pupils are round and equally reacting to light. EOMI. No scleral icterus. No conjunctival pallor. Tracheostomy is unremarkable. Trach collar in place. CARDIOVASCULAR: S1 and S2 present. No murmurs, rubs, or gallops. -PULMONARY: Chest is clear to auscultation, no wheezing or crackles. ABDOMEN: Soft, nontender, nondistended, normoactive bowel sounds. No palpable organomegaly. MUSCULOSKELETAL: No joint swelling or deformity. -EXTREMITIES: No cyanosis, clubbing, or pedal edema. Right hip tenderness NEUROLOGICAL: Gross neurological examination did not reveal any focal deficits. SKIN: No rashes. No petechiae - Labs CBC & Chem 7: 08/05/20 06:05 08/05/20 06:05 Labs: Abnormal Lab Results - Last 24 Hours (Table) 08/05/20 08/05/20 Range/Units 06:05 06:05 RBC 2.96 L (4.30-5.90) m/uL Hgb 9.8 L (13.0-17.5) gm/dL Hct 29.8 L (39.0-53.0) % MCV 100.6 H (80.0-100.0) fL Plt Count 49 L (150-450) k/uL Lymphocytes # 0.9 L (1.0-4.8) k/uL Creatinine 0.5 L (0.6-1.5) mg/dL BUN/Creatinine Ratio 38.00 H (12.00-20.00) Ratio C-Reactive Protein 2.1 H (0.0-0.8) mg/dL Microbiology - Last 24 Hours (Table) 08/04/20 Unknown Gram Stain - Preliminary Sputum Sputum Culture - Preliminary 07/30/20 16:38 Blood Culture - Preliminary Blood No Growth after 120 hours 08/02/20 13:13 Gram Stain - Final Sputum Sputum Culture - Final 07/31/20 21:14 Gram Stain - Final Sputum Sputum Culture - Final Stenotrophomonas maltophilia Assessment and Plan Assessment: Impression: Recurrent hemoptysis, most likely tracheobronchitis related or could be irritation at the distal end of the tracheostomy tube. Fall with right-sided hip fracture Right lung pneumonia possibly aspiration pneumonia , resolved. 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 Dukes Computed tomography scan of the chest reviewed There is noted scattered right sided mid to lower lung nodules, could reflect metastatic disease These findings were discussed with both the patient and his He is cleared for discharge from the pulmonary standpoint Would recommend outpatient PET scan and possible biopsies nodules highlight If not follow-up CAT scan in 3 months ID recommends 5 days of Bactrim twice a day for the stenotrophomonas He will follow Dr. Diaz in our office in 1-2 weeks' time I, the cosigning physician, performed a history & physical examination of the patient. Lungs sounds are clear. Maintaining good O2 saturations in the 90s on 28% FiO2 via trach collar. I discussed the assessment and plan of care with my nurse practitioner, Pearl Jensen. I attest to the above note as dictated by her.
[2020-08-05 13:56] VITALS: BP 132/47; PULSE 76; RESP 16; TEMP 97.8
--- NOTE | 2020-08-05 14:42 | P.DS ---
Providers Date of admission: 07/30/20 16:33 Attending physician: Aaron Lambert MD Consults: 07/30/20 16:32 Consult Physician Routine Consulting Provider: Sergio Acosta Consult Reason/Comments: right hip fracture Do you want consulting provider notified?: Already Contacted 07/30/20 16:38 Consult Physician Routine Consulting Provider: Gaby Justin Consult Reason/Comments: hyponatremia Do you want consulting provider notified?: Yes 07/30/20 16:39 Consult Physician Routine Consulting Provider: Dilia Diaz Consult Reason/Comments: pneumonia Do you want consulting provider notified?: Yes 07/30/20 21:16 Consult Physician Routine Consulting Provider: Cedric Mitchell Consult Reason/Comments: dc valproic acid due to possible SIADH Do you want consulting provider notified?: Yes 08/04/20 13:05 Consult Physician Routine Consulting Provider: Lucille Farrell Consult Reason/Comments: Pneumonia Do you want consulting provider notified?: Yes Primary care physician: Pedro Mikaela [facility] Course: pleasant 60 years old male who presents because of fall. He is patient of Dr. Mg. Patient gave me information also I talked to his miss Godfrey over the phone. Apparently the patient yesterday morning he fell while he was trying to get out of the bed without losing consciousness and he had his right hip area and imaging showing impacted right hip fracture, orthopedic team evaluated the patient and the planning to non-operative fixation. 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 His PCP Dr. Mg lowered his valproic acid about 7-8 months ago because of toxicity. He follows with Dr. Cardenas oncologist for his history of CANCER. He smokes about 1 pack per day and he drinks 1-2 beers of 24 ounces through his PEG tube. He eats and drinks through PEG tube, uses marijuana at times for his chronic back pain. MAPS was checked and he is and lorazepam 2 mg daily and gabapentin Sodium level has been requested in the morning but result isn't back yet still now, discussed with the staff and it looks like it is send out. We going to order another sodium stat cable 08/01/2020 Patient is awake and alert, no chest pain or dyspnea, no abdominal pain, he has minimal pain in his right hip area and he does not eat much of the pain medication. His blood pressure was running low today flex 70/40s, he received several boluses of normal saline with slight improvement, his metoprolol was held. However patient states that his systolic blood pressure usually runs on the low side like 90s Sodium improved today to 125 after change in his valproic acid to the patent Nephrology input is appreciated continue with sodium tablets and tolvaptan Patient currently continued on cefepime for his pneumonia. 08/02/2020 Patient is more awake and in the bit today, he is worried when surgery team are going to fix his right hip fracture, discussed with the patient that the following him closely and he has also other medical problems Today he was some blood-tinged and colored phlegm discharge from his tracheostomy tube, could be related to his diagnosis of pneumonia. However we will send sputum for culture and I discussed with staff. Result is pending and patient is currently is On cefepime His sodium is back to normal today at 138 and nephrology team are following the case very closely This is a slightly up at 64 today. And I think we can start patient on subc utaneous heparin today for DVT prophylaxis and keep monitor platelets and signs of bleeding. Blood pressure is improved today and it is 112/66 over still is close monitoring 08/03/2020 Patient is more awake and alert, he looks comfortable sitting up in bed with the correction of his sodium back to normal. Episodes secondary to a site the edge, secondary to valproic acid which was discontinued and switched to Vimpat per neurology team service. Neurologist also recommended MRI of the cervical spine and they are already following the patient closely, we will keep following the recommendation however is developing bloody mucus secretions through his tracheostomy tube, patient is a known case of pneumonia and he is already on cefepime, we ordered a separate culture and sensitivity, pulmonary team already on the case , Hemoglobin is stable at 9.1, platelets is improved to 71. WBC is normal. BMP is unremarkable and sodium is 141 Sputum culture growing stenotrophonomas maltophilia Orthopedic team R on the case for his right hip fracture 08/04/2020 Patient is presently on salt tablets and fluid restriction. Patient's serum sodium is within normal limits at this time. Patient was evaluated by nephrology. 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 Patient was having hemoptysis from a severe tracheobronchitis and patient is found to have Stenotrophomonas maltophilia although this organism is mostly a colonizer patient has foul- smelling discharge from the tracheostomy. Patient is presently on cefepime. I'll consult infectious disease regarding antibiotics for discharge. Possibly of discharge tomorrow. Patient is still having hemoptysis because of which I'll monitor him 1 more day. His bilirubin occupational therapy will evaluated the patient for need of any placement. 08/05/2020 Patient had continued hemoptysis because of the chest CT of the chest was opted which is consistent with the pulmonary nodules probably metastatic disease there is no evidence of pneumonia. Infectious disease a evaluated the patient is recommending Bactrim upon discharge. Patient was later evaluated by pulmonary and they and the cleared patient for discharge and patient will undergo an outp atient PET scan PHYSICAL EXAMINATION: GENERAL: The patient is alert and oriented x3, not in any acute distress. Thin built HEENT: Pupils are round and equally reacting to light. EOMI. No scleral icterus. No conjunctival pallor. Normocephalic, atraumatic. No pharyngeal erythema. No thyromegaly. And has a tracheostomy in place CARDIOVASCULAR: S1 and S2 present. No murmurs, rubs, or gallops. PULMONARY: Clear to escalation today no rhonchi today. ABDOMEN: Soft, nontender, nondistended, normoactive bowel sounds. No palpable organomegaly. MUSCULOSKELETAL: No joint swelling or deformity. EXTREMITIES: No cyanosis, clubbing, or pedal edema. NEUROLOGICAL: Gross neurological examination did not reveal any focal deficits. SKIN: No rashes. Assessment and Plan Plan: -Fall with right hip fracture, with orthopedic team planning for non-operative reduction and fixation -Hyponatremia, 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 Sodium is back to normal. Switched valproic acid to Vimpat. Patient is also receiving salt tablets at this time -Peripheral neuropathy -No evidence of aspiration pneumonia at this time. Patient also appears to have severe tracheal bronchitis was on cefepime and patient will be discharged on the Bactrim. -Hemoptysis: Patient had a computed tomography scan which is showing multiple pulmonary nodules and possibility of metastatic disease. Discussed with pulmonary. Outpatient PET scan -Past alcohol abuse, was treated for alcohol withdrawal -Dependence, patient is counseled -Substance abuse with marijuana, patient is counseled -History of tongue cancer, status post surgical resection of the tongue and part of the mouth floor with dysphagia, status post PEG tube placement and tracheostomy -Seizure disorder Patient Condition at Discharge: Fair Plan - Discharge Summary New Discharge Prescriptions: New Famotidine [Pepcid] 20 mg PO BID #100 ml Midodrine [ProAmatine] 5 mg PO AC-BID #30 tab Sodium Chloride Tab 1 gm PO DAILY #30 tab Lacosamide [Vimpat] 50 mg PEG/G-TUBE BID #60 tablet Thiamine [Vitamin B-1] 100 mg PO DAILY #30 tab Cyanocobalamin [Vitamin B-12] 500 mcg PO DAILY #30 tab Sulfamethox-Tmp 800-160Mg [Bactrim DS 800-160 mg] 1 tab PO Q12HR #10 tab Continue LORazepam [Ativan] 1 mg PEG/G-TUBE BID Aspirin EC [Ecotrin Low Dose] 81 mg PEG/G-TUBE DAILY Gabapentin [Neurontin] 300 mg PEG/G-TUBE TID Prochlorperazine [Compazine] 10 mg PEG/G-TUBE Q6H Baclofen [Lioresal] 20 mg PEG/G-TUBE TID Folic Acid 1 mg PEG/G-TUBE DAILY Discontinued Valproic Acid Oral Soln [Depakene Syrup] 500 mg PEG/G-TUBE Q8H Metoprolol Tartrate [Lopressor] 12.5 mg PEG/G-TUBE BID Discharge Medication List LORazepam [Ativan] 1 mg PEG/G-TUBE BID 07/18/17 [History] Aspirin EC [Ecotrin Low Dose] 81 mg PEG/G-TUBE DAILY 02/27/20 [History] Gabapentin [Neurontin] 300 mg PEG/G-TUBE TID 02/28/20 [History] Baclofen [Lioresal] 20 mg PEG/G-TUBE TID 05/05/20 [History] Prochlorperazine [Compazine] 10 mg PEG/G-TUBE Q6H 05/05/20 [History] Folic Acid 1 mg PEG/G-TUBE DAILY 07/30/20 [History] Cyanocobalamin [Vitamin B-12] 500 mcg PO DAILY #30 tab 08/05/20 [Rx] Famotidine [Pepcid] 20 mg PO BID #100 ml 08/05/20 [Rx] Lacosamide [Vimpat] 50 mg PEG/G-TUBE BID #60 tablet 08/05/20 [Rx] Midodrine [ProAmatine] 5 mg PO AC-BID #30 tab 08/05/20 [Rx] Sodium Chloride Tab 1 gm PO DAILY #30 tab 08/05/20 [Rx] Sulfamethox-Tmp 800-160Mg [Bactrim DS 800-160 mg] 1 tab PO Q12HR #10 tab 08/05/20 [Rx] Thiamine [Vitamin B-1] 100 mg PO DAILY #30 tab 08/05/20 [Rx] Follow up Appointment(s)/Referral(s): Alina Campos MD [Primary Care Provider] - 3 Days Dilia Diaz MD [STAFF PHYSICIAN] - 10 Days
--- NOTE | 2020-08-05 16:13 | PN ---
PROGRESS NOTE DATE OF SERVICE: 08/05/2020 REASON FOR FOLLOWUP: Stenotrophomonas tracheobronchitis. INTERVAL HISTORY: The patient is currently afebrile. The patient is breathing comfortably. Denies having any chest pain. No worsening hemoptysis. No vomiting. No abdominal pain or diarrhea. PHYSICAL EXAMINATION: Blood pressure 132/47, pulse of 73, temperature 97.8. He is 97% on trach collar. General description is a middle-aged male up in the chair in no distress. RESPIRATORY SYSTEM: Unlabored breathing with decreased intensity of breath sounds. No wheeze. HEART: S1, S2. Regular rate and rhythm. ABDOMEN: Soft. No tenderness. LABS: Hemoglobin 9.8, white count 5.6, BUN of 19, creatinine 0.56. DIAGNOSTIC IMPRESSION AND PLAN: Patient with a positive sputum culture for Stenotrophomonas with possible tracheobronchitis versus trach colonization and has no other symptom of pneumonia clinically. On cefepime, short course of oral Bactrim DS on discharge. Continue with supportive care. MMODL / IJN: [id number] /
== END 2020-08-05 16:03 | disposition home health service (06) | DRG 536 ==
LOC: EC 14:35 → 4SSUR 16:33
PROVIDERS: ADMIT Internal Medicine; ATTEND Internal Medicine
DX: S72.031A Displaced midcervical fracture of right femur, initial encounter for closed fracture (principal); E22.2 Syndrome of inappropriate secretion of antidiuretic hormone; R64 Cachexia; Z68.1 Body mass index [BMI] 19.9 or less, adult; C34.90 Malignant neoplasm of unspecified part of unspecified bronchus or lung; R04.2 Hemoptysis; K21.9 Gastro-esophageal reflux disease without esophagitis; F32.9 Major depressive disorder, single episode, unspecified; F41.9 Anxiety disorder, unspecified; F17.210 Nicotine dependence, cigarettes, uncomplicated; F10.10 Alcohol abuse, uncomplicated; E87.5 Hyperkalemia; T42.6X5A Adverse effect of other antiepileptic and sedative-hypnotic drugs, initial encounter; G62.9 Polyneuropathy, unspecified; E03.9 Hypothyroidism, unspecified; Z20.828 Contact with and (suspected) exposure to other viral communicable diseases; G40.909 Epilepsy, unspecified, not intractable, without status epilepticus; G89.29 Other chronic pain; F12.90 Cannabis use, unspecified, uncomplicated; M47.812 Spondylosis without myelopathy or radiculopathy, cervical region; W06.XXXA Fall from bed, initial encounter; Z79.899 Other long term (current) drug therapy; Z79.82 Long term (current) use of aspirin; Z93.1 Gastrostomy status; Z93.0 Tracheostomy status; Z85.810 Personal history of malignant neoplasm of tongue; I25.2 Old myocardial infarction; Z98.890 Other specified postprocedural states; Z85.118 Personal history of other malignant neoplasm of bronchus and lung; Y92.008 Other place in unspecified non-institutional (private) residence as the place of occurrence of the external cause
CPT/HCPCS: 36415; 70450; 71045; 71275; 72125; 73502; 80048; 80051; 80053; 82533; 82607; 82747; 83036; 83735; 83935; 84145; 84300; 84439; 84443; 84484; 85025; 85610; 85730; 86140; 87040; 87070; 87077; 87186; 87205; 87635; 93005; 94760; 96365; 99285

== ENCOUNTER 2020-09-15 06:30 | Inpatient (IN) | payer MEDICAID, MEDICARE ==
[2020-09-15] MEDS ORDERED: HYDROmorphone 1 MG/ML 1 ML SYRINGE IM STA (06:38)
--- NOTE | 2020-09-15 06:49 | ED ---
Fall HPI - General Chief Complaint: Fall Stated Complaint: Fall Time Seen by Provider: 09/15/20 06:30 Source: patient, EMS Mode of arrival: EMS Limitations: physical limitation - History of Present Illness Initial Comments: This a 60-year-old male presents emergency from via EMS chief complaint of fall, right hip pain. Patient states that he was admitted approximately one month ago for right hip fracture, lung infection. Patient states that he slid out of his chair/bed today states that he fell onto his left side, the right hip pain. Patient did not have surgery on his right hip for an impacted subcapital fracture secondary to be nonambulatory. Patient does his feeding through a PEG tube, does have a trach. Patient denies any head injury no loss conscious. Patient denies any paresthesias denies any back pain patient offers no complaints. - Related Data Home Medications Medication Instructions Recorded Confirmed LORazepam [Ativan] 1 mg PEG/G-TUBE BID PRN 07/18/17 09/15/20 Gabapentin [Neurontin] 300 mg PEG/G-TUBE TID PRN 02/28/20 09/15/20 Baclofen [Lioresal] 20 mg PEG/G-TUBE TID PRN 05/05/20 09/15/20 Prochlorperazine [Compazine] 10 mg PEG/G-TUBE Q6H PRN 05/05/20 09/15/20 Folic Acid 1 mg PEG/G-TUBE DAILY 07/30/20 09/15/20 Cyanocobalamin [Vitamin B-12] 500 mcg PEG/G-TUBE DAILY 09/15/20 09/15/20 Famotidine [Pepcid] 20 mg PEG/G-TUBE BID 09/15/20 09/15/20 Midodrine [ProAmatine] 5 mg PEG/G-TUBE AC-BID 09/15/20 09/15/20 Sodium Chloride Tab 1 gm PEG/G-TUBE DAILY 09/15/20 09/15/20 Thiamine [Vitamin B-1] 100 mg PEG/G-TUBE DAILY 09/15/20 09/15/20 Previous Rx's Medication Instructions Recorded Lacosamide [Vimpat] 50 mg PEG/G-TUBE BID #60 tablet 08/05/20 Allergies Allergy/AdvReac Type Severity Reaction Status Date / Time No Known Allergies Allergy Verified 09/15/20 06:41 Review of Systems ROS Statement: Those systems with pertinent positive or pertinent negative responses have been documented in the HPI. ROS Other: All systems not noted in ROS Statement are negative. 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, COPD, history of tracheostomy tube insertion, history of PEG tube insertion, history of hyponatremia, COPD, seizure disorder and left seizure was more than 5 years ago, acid reflux, chronic hypotension Last Myocardial Infarction Date:: 2014 History of Any Multi-Drug Resistant Organisms: None Reported Past Surgical History: Heart Catheterization Additional Past Surgical History / Comment(s): trachestomy, oral surgery for cancer removal, PEG tube Past Anesthesia/Blood Transfusion Reactions: No Reported Reaction Additional Past Anesthesia/Blood Transfusion Reaction / Comment(s): adopted - no family hx Past Psychological History: Anxiety, Depression Smoking Status: Current every day smoker Past Alcohol Use History: Daily, Heavy Past Drug Use History: None Reported - Past Family History Mother Family Medical History: Unable to Obtain Additional Family Medical History / Comment(s): pt is adopted General Exam Limitations: no limitations General appearance: alert, in no apparent distress Head exam: Present: atraumatic, normocephalic, normal inspection Eye exam: Present: normal appearance, PERRL, EOMI. Absent: scleral icterus, conjunctival injection, periorbital swelling ENT exam: Present: mucous membranes moist. Absent: normal exam, normal oropharynx (Edentulous) Neck exam: Present: full ROM. Absent: normal inspection (Trach noted), tenderness, meningismus, lymphadenopathy Respiratory exam: Present: wheezes, decreased breath sounds. Absent: normal lung sounds bilaterally, respiratory distress, rales, rhonchi, stridor Cardiovascular Exam: Present: regular rate, normal rhythm, normal heart sounds. Absent: systolic murmur, diastolic murmur, rubs, gallop, clicks Extremities exam: Present: other (Tenderness the right hip diffusely, leg is neurovascularly intact, left hip there is small abrasions, patient has full range of motion nontender) Neurological exam: Present: alert, oriented X3 Skin exam: Present: warm, dry, intact, normal color. Absent: rash Course Vital Signs 09/15/20 06:31 Temperature 98.9 F Pulse Rate 76 Respiratory 18 Rate Blood Pressure 101/72 O2 Sat by Pulse 92 L Oximetry Medical Decision Making - Medical Decision Making Case discussed with Dr. Catalan there is worsening of patient's hip fracture. Patient will be admitted for probable surgery. Patient will have medical clearance. Disposition Clinical Impression: Fall, Displaced fracture of right femoral neck Disposition: ADMITTED IP TO THIS HOSP Condition: Fair Referrals: Alina Campos MD [Primary Care Provider] - 1-2 days
[2020-09-15] MEDS ORDERED: ONDANSETRON 4 MG/2 ML VIAL IVP PRN (07:23)
[2020-09-15] MEDS ORDERED: NALOXONE 0.4 MG/ML 1 ML VIAL IV PRN (07:23)
--- NOTE | 2020-09-15 07:47 | XR ---
EXAM: XR Right Hip With Pelvis When Performed, 4 or More Views CLINICAL HISTORY: fall, pain, hx right hip fx TECHNIQUE: Four or more views of the right hip with pelvis when performed. COMPARISON: 07/30/2020 FINDINGS: Bones/joints: Interval impaction of previously noted subcapital right femoral neck fracture. No dislocation. Soft tissues: Unremarkable. IMPRESSION: Interval impaction of previously noted subcapital right femoral neck fracture.
--- NOTE | 2020-09-15 08:16 | XR ---
EXAMINATION TYPE: XR chest 1V portable DATE OF EXAM: 09/15/2020 HISTORY: Shortness of breath. COMPARISON: 08/03/2020 TECHNIQUE: Single view of the chest is submitted. FINDINGS: Demonstrated are scattered senescent parenchymal change. Hyperinflation compatible with COPD. Trache ostomy tube and MediPort catheter are unchanged in position. There is no evidence for focal infiltrate. The heart is stable. Hilar and mediastinal structures are within normal limits. Degenerative changes are seen of the dorsal spine. IMPRESSION: 1. Chronic changes without evidence for acute pulmonary disease.
[2020-09-15 08:24] LABS: INR 0.9 (<1.2); Partial Thromboplastin Time 27.9 sec (22.0-30.0); Prothrombin Time 10.2 sec (9.0-12.0)
[2020-09-15 08:43] LABS: Appearance,Urine Clear (Clear); Bilirubin,Urine Negative (Negative); Blood,Urine Negative (Negative); Color,Urine Colorless; Glucose,Urine (UA) Negative (Negative); Ketones,Urine Negative (Negative); Leukocyte Esterase,Urine Negative (Negative); Nitrite,Urine Negative (Negative); PH, Urine 6.5 (5.0-8.0); Protein,Urine Negative (Negative); Specific Gravity,Urine 1.003 (1.001-1.035); Urobilinogen,Urine <2.0 mg/dL (<2.0)
[2020-09-15 08:43] LABS: Basophils # (A) 0.1 k/uL (0-0.2); Basophils % (A) 1 %; Eosinophils # (A) 0.1 k/uL (0-0.7); Eosinophils % (A) 1 %; HCT 37.2 % (39.0-53.0); Lymphocytes # (A) 1.2 k/uL (1.0-4.8); Lymphocytes % (A) 18 %; MCH 32.6 pg (25.0-35.0); MCHC 34.5 g/dL (31.0-37.0); Mean Platelet Volume 11.4; Monocytes # (A) 0.3 k/uL (0-1.0); Monocytes % (A) 5 %; Neutrophils # (A) 4.8 k/uL (1.3-7.7); Neutrophils % (A) 74 %; RBC 3.93 m/uL (4.30-5.90); RDW 13.7 % (11.5-15.5); WBC 6.5 k/uL (3.8-10.6)
[2020-09-15 08:49] LABS: HGB 12.8 gm/dL (13.0-17.5)
[2020-09-15 08:50] LABS: MCV 94.5 fL (80.0-100.0)
[2020-09-15 08:56] LABS: ALT 13 U/L (4-49); AST 37 U/L (17-59); African American GFR (CKD) >90 (>60 ml/min/1.73 sqM); Albumin 4.1 g/dL (3.5-5.0); Albumin/Globulin Ratio 1.1; Alkaline Phosphatase 68 U/L (38-126); Anion Gap 10 mmol/L; Blood Urea Nitrogen 11 mg/dL (9-20); Calcium 8.9 mg/dL (8.4-10.2); Carbon Dioxide 25 mmol/L (22-30); Chloride 85 mmol/L (98-107); Globulin 3.7 g/dL; Glucose 78 mg/dL (74-99); Non-African American GFR(CKD) >90 (>60 ml/min/1.73 sqM); Sodium 120 mmol/L (137-145); Total Bilirubin 0.4 mg/dL (0.2-1.3); Total Protein 7.8 g/dL (6.3-8.2)
[2020-09-15 08:58] LABS: Platelet Count 35 k/uL (150-450)
[2020-09-15 08:59] LABS: Large Platelets Present
[2020-09-15 09:04] LABS: Potassium 4.5 mmol/L (3.5-5.1)
[2020-09-15] MEDS ORDERED: BACLOFEN 10 MG TAB PEG/G-TUBE PRN (09:43)
[2020-09-15] MEDS: HYDROmorphone 0.5 MG/0.5 ML SYRINGE IVP PRN ×3 (10:21→19:36)
[2020-09-15] MEDS: SODIUM CHLORIDE 0.9% 1,000 ML IV SCH (10:23)
--- NOTE | 2020-09-15 11:44 | P.CONS ---
History of Present Illness - Reason for Consult Hyponatremia, tracheostomy. - History of Present Illness -year-old male was admitted for right hip fracture. Patient had a mechanical fall. Patient the was recently admitted for impacted subcapital fracture. Patient had a fall again found to have displaced fracture of the right femoral neck. Patient has a tracheostomy and a PEG tube sites of which doesn't appear to be infected. 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 Phenytoin was subsequently discontinued and patient was started on Keppra. Patient present sodium is 120. Patient usually uses 2 feedings will not give an additional free water with tube feedings patient may have a competent of dehydration as well because of his recent nausea vomiting which improved at this time we'll hydrate him gently with the 50 mL of normal saline avoid any free water we'll repeat basic metabolic profile tomorrow. 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 HEENT: No recent visual problems or hearing problems. Denied any sore throat. CARDIOVASCULAR: No chest pain, orthopnea, PND, no palpitations, no syncope. PULMONARY: No shortness of breath, no cough, no hemoptysis. GASTROINTESTINAL: No diarrhea, no nausea, no vomiting, no abdominal pain. NEUROLOGICAL: No headaches, no weakness, no numbness. HEMATOLOGICAL: Denies any bleeding or petechiae. GENITOURINARY: Denies any burning micturition, frequency, or urgency. MUSCULOSKELETAL/RHEUMATOLOGICAL: Right hip pain ENDOCRINE: Denies any polyuria or polydipsia. The rest of the 14-point review of systems is negative. Past Medical History Past Medical History: Cancer, COPD, GERD/Reflux, Myocardial Infarction ([place]), Pneumonia, Seizure Disorder Additional Past Medical History / Comment(s): 07/30/20 fall with impacted R hip fracture/tracheal bronchitis, hemoptysis, pulmonary nodules. 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 Last Myocardial Infarction Date:: 2014 History of Any Multi-Drug Resistant Organisms: None Reported Past Surgical History: Heart Catheterization Additional Past Surgical History / Comment(s): Oral surgery with resection floor of mouth/tongue/mandible and bilateral neck resection with skin graft taken from L upper arm at [facility], tracheostomy, peg tube Past Anesthesia/Blood Transfusion Reactions: No Reported Reaction Additional Past Anesthesia/Blood Transfusion Reaction / Comm: adopted - no family hx Smoking Status: Current every day smoker - Past Family History Mother Family Medical History: Unable to Obtain Additional Family Medical History / Comment(s): pt is adopted Medications and Allergies Home Medications Medication Instructions Recorded Confirmed Type LORazepam [Ativan] 1 mg PEG/G-TUBE BID PRN 07/18/17 09/15/20 History Gabapentin [Neurontin] 300 mg PEG/G-TUBE TID PRN 02/28/20 09/15/20 History Baclofen [Lioresal] 20 mg PEG/G-TUBE TID PRN 05/05/20 09/15/20 History Prochlorperazine [Compazine] 10 mg PEG/G-TUBE Q6H PRN 05/05/20 09/15/20 History Folic Acid 1 mg PEG/G-TUBE DAILY 07/30/20 09/15/20 History Lacosamide [Vimpat] 50 mg PEG/G-TUBE BID #60 tablet 08/05/20 09/15/20 Rx Cyanocobalamin [Vitamin B-12] 500 mcg PEG/G-TUBE DAILY 09/15/20 09/15/20 History Famotidine [Pepcid] 20 mg PEG/G-TUBE BID 09/15/20 09/15/20 History Midodrine [ProAmatine] 5 mg PEG/G-TUBE AC-BID 09/15/20 09/15/20 History Sodium Chloride Tab 1 gm PEG/G-TUBE DAILY 09/15/20 09/15/20 History Thiamine [Vitamin B-1] 100 mg PEG/G-TUBE DAILY 09/15/20 09/15/20 History Allergies Allergy/AdvReac Type Severity Reaction Status Date / Time No Known Allergies Allergy Verified 09/15/20 06:41 Physical Exam Vitals: Vital Signs Temp Pulse Pulse Resp BP BP Pulse Ox 09/15/20 09:11 98.7 F 79 16 110/69 98 09/15/20 07:55 86 18 97/72 98 09/15/20 06:31 98.9 F 76 18 101/72 92 L Intake and Output 09/14/20 09/15/20 09/15/20 22:59 06:59 14:59 Other: Weight 55.792 kg 55.792 kg PHYSICAL EXAMINATION: GENERAL: The patient is alert and oriented x3, not in any acute distress. Thin built HEENT: Pupils are round and equally reacting to light. EOMI. No scleral icterus. No conjunctival pallor. Normocephalic, atraumatic. No pharyngeal erythema. CARDIOVASCULAR: S1 and S2 present. No murmurs, rubs, or gallops. PULMONARY: Chest is clear to auscultation, no wheezing or crackles. Chest basically site appears to be clean ABDOMEN: Soft, nontender, nondistended, normoactive bowel sounds. No palpable organomegaly. PEG tube in place MUSCULOSKELETAL: Deferred to orthopedic surgery EXTREMITIES: No cyanosis, clubbing, or pedal edema. NEUROLOGICAL: Gross neurological examination did not reveal any focal deficits. SKIN: No rashes. Results CBC & Chem 7: 09/15/20 07:43 09/15/20 08:26 Labs: Abnormal Lab Results - Last 24 Hours (Table) 09/15/20 09/15/20 Range/Units 07:43 08:26 RBC 3.93 L (4.30-5.90) m/uL Hgb 12.8 L D (13.0-17.5) gm/dL Hct 37.2 L (39.0-53.0) % Plt Count 35 L (150-450) k/uL Sodium 120 L (137-145) mmol/L Chloride 85 L (98-107) mmol/L Creatinine 0.44 L (0.66-1.25) mg/dL Assessment and Plan Plan: -Hyponatremia: Patient probably has a combined hyponatremia with SIADH in the hypovolemia, free fluid restriction as mentioned above and patient will also be hydrated gently with normal saline, repeat basic metabolic profile tomorrow can use salt tablets -History of cancer of for oral cavity in remission has a tracheostomy and PEG tube in place -COPD without any acute exacerbation patient continues to smoke counseling regarding this was provided -Gastroesophageal reflux disease - continue with Keppra -Depression -Coronary artery disease -DVT prophylaxis as per primary service -Right hip fracture management as per primary service
--- NOTE | 2020-09-15 13:26 | P.HPOR ---
History of Present Illness H&P Date: 09/15/20 This is a 60 year-old male who is admitted for right hip fracture. Patient initially fractured the right hip on 07/30/2020 and was being treated nonoperatively due to multiple comorbidities. Patient is nonambulatory. Patient is seen and evaluated at bedside today and states that he had another fall. Patient was evaluated in the emergency room and x-rays revealed a displaced femoral neck fracture. Patient states that his pain is controlled and he denies any numbness, weakness or tingling. Patient's past medical history is significant for COPD, seizure from previous episode of alcohol withdrawal, cancer of the oral cavity, GI bleed, thrombocytopenia, hyponatremia, chronic hypotension and chronic back pain. Patient has a trach and peg tube. Review of Systems See HPI. Past Medical History Past Medical History: Cancer, COPD, GERD/Reflux, Myocardial Infarction (RI), Pneumonia, Seizure Disorder Additional Past Medical History / Comment(s): 07/30/20 fall with impacted R hip fracture/tracheal bronchitis, hemoptysis, pulmonary nodules. 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 Last Myocardial Infarction Date:: 2014 History of Any Multi-Drug Resistant Organisms: None Reported Past Surgical History: Heart Catheterization Additional Past Surgical History / Comment(s): Oral surgery with resection floor of mouth/tongue/mandible and bilateral neck resection with skin graft taken from L upper arm at [facility], tracheostomy, peg tube Past Anesthesia/Blood Transfusion Reactions: No Reported Reaction Additional Past Anesthesia/Blood Transfusion Reaction / Comment(s): adopted - no family hx Smoking Status: Current every day smoker - Past Family History Mother Family Medical History: Unable to Obtain Additional Family Medical History / Comment(s): pt is adopted Medications and Allergies Home Medications Medication Instructions Recorded Confirmed Type LORazepam [Ativan] 1 mg PEG/G-TUBE BID PRN 07/18/17 09/15/20 History Gabapentin [Neurontin] 300 mg PEG/G-TUBE TID PRN 02/28/20 09/15/20 History Baclofen [Lioresal] 20 mg PEG/G-TUBE TID PRN 05/05/20 09/15/20 History Prochlorperazine [Compazine] 10 mg PEG/G-TUBE Q6H PRN 05/05/20 09/15/20 History Folic Acid 1 mg PEG/G-TUBE DAILY 07/30/20 09/15/20 History Lacosamide [Vimpat] 50 mg PEG/G-TUBE BID #60 tablet 08/05/20 09/15/20 Rx Cyanocobalamin [Vitamin B-12] 500 mcg PEG/G-TUBE DAILY 09/15/20 09/15/20 History Famotidine [Pepcid] 20 mg PEG/G-TUBE BID 09/15/20 09/15/20 History Midodrine [ProAmatine] 5 mg PEG/G-TUBE AC-BID 09/15/20 09/15/20 History Sodium Chloride Tab 1 gm PEG/G-TUBE DAILY 09/15/20 09/15/20 History Thiamine [Vitamin B-1] 100 mg PEG/G-TUBE DAILY 09/15/20 09/15/20 History Allergies Allergy/AdvReac Type Severity Reaction Status Date / Time No Known Allergies Allergy Verified 09/15/20 06:41 Physical Examination On exam patient is resting comfortably in bed in no acute distress. Patient is alert and oriented x3. Exam of the right lower extremity reveals mild swelling. Skin intact. Calf is soft and nontender to palpation. Sensation intact. Neurovascular status and circulatory status are intact. Exams of the head, neck, bilateral upper extremities and left lower extremity are within normal limits. Results X-rays of the right hip and pelvis reveal right femoral neck fracture. - Labs Labs: Abnormal Lab Results - Last 24 Hours (Table) 09/15/20 09/15/20 Range/Units 07:43 08:26 RBC 3.93 L (4.30-5.90) m/uL Hgb 12.8 L D (13.0-17.5) gm/dL Hct 37.2 L (39.0-53.0) % Plt Count 35 L (150-450) k/uL Sodium 120 L (137-145) mmol/L Chloride 85 L (98-107) mmol/L Creatinine 0.44 L (0.66-1.25) mg/dL H & H 09/15/20 Range/Units 07:43 Hgb 12.8 L D (13.0-17.5) gm/dL Hct 37.2 L (39.0-53.0) % Coagulation 09/15/20 Range/Units 07:43 INR 0.9 (<1.2) Result Diagrams: 09/15/20 07:43 09/15/20 08:26 Assessment and Plan (1) Displaced fracture of right femoral neck Current Visit: Yes Status: Acute Code(s): S72.001A - FRACTURE OF UNSP PART OF NECK OF RIGHT FEMUR, INIT SNOMED Code(s): 5388751 (2) Fall Current Visit: Yes Status: Acute Code(s): W19.XXXA - UNSPECIFIED FALL, INITIAL ENCOUNTER SNOMED Code(s): 0647118 Plan: 1. NPO after midnight 2. Continue pain control. 3. Appreciate input from medicine. 4. Planning for right hip hemiarthroplasty on 09/16/2020 pending medical clearance and patient consent.
[2020-09-15] MEDS: GABAPENTIN 300 MG CAP PEG/G-TUBE PRN (16:09)
[2020-09-15] MEDS: MIDODRINE 5 MG TAB PEG/G-TUBE SCH (16:09)
[2020-09-15] MEDS ORDERED: LIDOCAINE 1% (10MG/ML) FOR IV START INTRADERMA PRN (18:10)
[2020-09-15] MEDS: LACTATED RINGERS 1,000 ML IV SCH (18:25)
[2020-09-15] MEDS: FAMOTIDINE 20 MG TAB PEG/G-TUBE SCH (19:36)
[2020-09-15] MEDS: LACOSAMIDE 50 MG TABLET PEG/G-TUBE SCH (19:36)
[2020-09-16] MEDS: GABAPENTIN 300 MG CAP PEG/G-TUBE PRN ×3 (00:36→22:32)
[2020-09-16] MEDS: HYDROmorphone 0.5 MG/0.5 ML SYRINGE IVP PRN ×4 (00:37→22:04)
[2020-09-16] MEDS: SODIUM CHLORIDE 0.9% 1,000 ML IV SCH (05:26)
[2020-09-16] MEDS ORDERED: fentaNYL (PF) 50 MCG/ML 2 ML AMP IV PRN (07:00)
[2020-09-16] MEDS: MIDODRINE 5 MG TAB PEG/G-TUBE SCH ×2 (08:54→17:51)
[2020-09-16] MEDS: LACOSAMIDE 50 MG TABLET PEG/G-TUBE SCH ×2 (08:54→22:05)
[2020-09-16] MEDS: THIAMINE 100 MG TAB PEG/G-TUBE SCH (08:54)
[2020-09-16] MEDS: SODIUM CHLORIDE TAB 1 GM TAB PEG/G-TUBE SCH (08:54)
[2020-09-16] MEDS: FAMOTIDINE 20 MG TAB PEG/G-TUBE SCH ×2 (08:54→22:05)
[2020-09-16 10:31] LABS: African American GFR (CKD) 137.5 (60.0-200.0); Anion Gap 15.6 mmol/L (4.00-12.00); Calcium 9.3 mg/dL (8.7-10.3); Carbon Dioxide 21.4 mmol/L (21.6-31.8); Non-African American GFR(CKD) 118.6 (60.0-200.0); Potassium 4.4 mmol/L (3.5-5.5)
[2020-09-16 10:49] LABS: Glucose,Whole Blood 69 mg/dL (75-99)
--- NOTE | 2020-09-16 12:25 | P.PN ---
Subjective -year-old male was admitted for right hip fracture. Patient had a mechanical fall. Patient the was recently admitted for impacted subcapital fracture. Patient had a fall again found to have displaced fracture of the right femoral neck. Patient has a tracheostomy and a PEG tube sites of which doesn't appear to be infected. 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 Phenytoin was subsequently discontinued and patient was started on Keppra. Patient present sodium is 120. Patient u maria eugenia uses 2 feedings will not give an additional free water with tube feedings patient may have a competent of dehydration as well because of his recent nausea vomiting which improved at this time we'll hydrate him gently with the 50 mL of normal saline avoid any free water we'll repeat basic metabolic profile tomorrow. 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 09/16/2020 Patient's serum sodium improved although to fast went up from 120-135, probably 120 is a lab error. Patient will be started on D5 water because the correction of sodium was to fast. Patient blood sugars were low today after finding tsetse of 4 D5 water patient will be switched to D5 normal saline. Patient is medically stable to go for her arthritic surgery may need IV fluids because of his low normal blood pressures. Constitutional: Denied any fatigue denied any fever. Cardio vascular: denied any chest pain, palpitations Gastrointestinal denied any nausea vomiting Pulmonary: Denied any shortness of breath cough Neurologic denied any new focal deficits All inpatient medications were reviewed and appropriate changes in these medications as dictated in the interval history and assessment and plan. Objective - Vital Signs Vital signs: Vital Signs Temp 97.4 F L 09/16/20 07:43 Pulse 83 09/16/20 08:56 Resp 16 09/16/20 08:56 BP 95/59 09/16/20 07:43 Pulse Ox 94 L 09/16/20 07:43 Intake & Output 09/15/20 09/16/20 09/16/20 18:59 06:59 18:59 Output Total 900 600 Balance -900 -600 Weight 55.792 kg 53 kg Output: Urine 900 600 Other: Voiding Method Urinal Urinal Urinal - Exam PHYSICAL EXAMINATION: GENERAL: The patient is alert and oriented x3, not in any acute distress. Thin built HEENT: Pupils are round and equally reacting to light. EOMI. No scleral icterus. No conjunctival pallor. Normocephalic, atraumatic. No pharyngeal erythema. CARDIOVASCULAR: S1 and S2 present. No murmurs, rubs, or gallops. PULMONARY: Chest is clear to auscultation, no wheezing or crackles. Chest basically site appears to be clean ABDOMEN: Soft, nontender, nondistended, normoactive bowel sounds. No palpable organomegaly. PEG tube in place MUSCULOSKELETAL: Deferred to orthopedic surgery EXTREMITIES: No cyanosis, clubbing, or pedal edema. NEUROLOGICAL: Gross neurological examination did not reveal any focal deficits. SKIN: No rashes. - Labs CBC & Chem 7: 09/15/20 07:43 09/16/20 06:16 Labs: Abnormal Lab Results - Last 24 Hours (Table) 09/16/20 09/16/20 Range/Units 06:16 10:47 Carbon Dioxide 21.4 L (21.6-31.8) mmol/L Anion Gap 15.60 H (4.00-12.00) mmol/L Creatinine 0.5 L (0.6-1.5) mg/dL Glucose 66 L (70-110) mg/dL POC Glucose (mg/dL) 69 L (75-99) mg/dL Assessment and Plan Plan: -Hyponatremia: Patient probably has a combined hyponatremia with SIADH and hypovolemia, and sodium improved with fluid restrictions all tablets and sodium chloride IV -History of cancer of for oral cavity in remission has a tracheostomy and PEG tube in place -COPD without any acute exacerbation patient continues to smoke counseling regarding this was provided -Gastroesophageal reflux disease - continue with Keppra -Depression -Coronary artery disease -DVT prophylaxis as per primary service -Right hip fracture management as per primary service
[2020-09-16] MEDS ORDERED: IV FLUID CONTINUATION 1,000 ML IV ONE (13:38)
[2020-09-16 13:49] LABS: Glucose,Whole Blood 148 mg/dL (75-99)
[2020-09-16] MEDS ORDERED: fentaNYL (PF) 50 MCG/ML 2 ML AMP ONE (14:22)
[2020-09-16] MEDS ORDERED: HYDROmorphone (PF) 1 MG/ML ONE (14:22)
[2020-09-16] MEDS ORDERED: MIDAZOLAM 2 MG/2 ML VIAL ONE (14:22)
[2020-09-16] MEDS ORDERED: GLYCOPYRROLATE 0.2 MG/ML 2 ML VIAL ONE (14:22)
[2020-09-16] MEDS ORDERED: LIDOCAINE 1% INJ 10MG/ML (20 ML MDV) ONE (14:22)
[2020-09-16] MEDS ORDERED: PHENYLEPHRINE 10 MG/ML VIAL ONE (14:22)
[2020-09-16] MEDS ORDERED: NEOSTIGMINE 1 MG/ML 10 ML VIAL ONE (14:22)
[2020-09-16] MEDS ORDERED: ETOMIDATE 2 MG/ML 10 ML VIAL ONE (14:22)
[2020-09-16] MEDS ORDERED: ROCURONIUM 10 MG/ML (10 ML VIAL) IV ONE (14:22)
[2020-09-16] MEDS ORDERED: ceFAZolin 3,000 MG in SODIUM CHLORIDE 0.9% IRRIGATIO 3,000 ML IRRIGATION ONE (14:24)
[2020-09-16] MEDS ORDERED: LACTATED RINGERS 1,000 ML IV ONE ×2 (14:24→16:03)
[2020-09-16] MEDS ORDERED: SODIUM CHLORIDE 0.9% 100 ML with ceFAZolin 2,000 MG IV ONE ×2 (15:01)
--- NOTE | 2020-09-16 15:50 | P.OP ---
Date of Procedure: 09/16/20 Procedure(s) Performed: PREOPERATIVE DIAGNOSIS: Right hip femoral neck fracture POSTOPERATIVE DIAGNOSIS: Right hip femoral neck fracture OPERATION: Right hip cemented unipolar hemiarthroplasty. ANESTHESIA: Gen. ESTIMATED BLOOD LOSS: 200 ml. SAIL FINISHER HAND: Ana Luisa Christiansen PA-C (assistance with: patient positioning, retraction, exposure, hemostasis, leg positioning, implantation, irrigation, closure, dressing) COMPLICATIONS: None apparent. COMPONENTS IMPLANTED: Yohan LDFx cemented femoral stem; unipolar femoral head; neck extension +10.5. INDICATIONS: Blake is a 60-year-old male with multiple medical problems who is basically a limited household ambulator with a history of falling and sustaining a femoral neck fracture. He has completely displaced the fracture with his current fall which was an impacted fracture from July. I have recommended surgical treatment with a cemented unipolar hemiarthroplasty. I have discussed this procedure in detail and explained the potential risks and complications as being inclusive of, but not limited to: Bleeding, infection, scarring, disco mfort, blood vessel and/or nerve damage, limb length inequality, gait disturbance, blood clot, pulmonary embolism, , and other risks. Gen. anesthetic will be utilized for this procedure due to the patient's platelet count of 35. The consent form has been signed. PROCEDURE: After appropriate consent was obtained, the patient was taken to the operating room and placed in supine position. Gen. anesthetic was administered and after confirmation of adequate anesthesia, the patient was placed into the lateral decubitus position with the affected side up. Care was taken to make sure that all pressure points were adequately padded and a [place] hip positioner was utilized for positioning. The hip was prepped and draped in the usual aseptic fashion using a combination of Chloraprep and alcohol. [place] drape was used for the case and the patient received intravenous antibiotics prior to the incision. The incision was created directly over the greater trochanter and carried slightly posteriorly for a posterior approach to the hip. The incision was then deepened down to subcutaneous tissue and fascia makenzie. Fascia makenzie was split in line with the incision and split proximally along the fibers of the gluteus jero. The underlying fibers of the muscle were teased apart using finger dissection and bleeding vessels were picked up and coagulated. Retractor was then placed posteriorly consisting of a blunt Osmani. The short external rotators and capsule were exposed and good visualization of the attachment of the external rotators to the femur was established. The short external rotators and capsule were released using electrocautery from their femoral attachments. A hockey stick shaped incision was created in the capsule. Joint fluid and hemarthrosis was evacuated and the patient's hip was internally rotated to expose the fracture site. The femoral neck cut was created approximately 1 cm superior to the lesser trochanter using a reciprocating saw. The femoral head and neck fragment was removed and visualization and palpation of the acetabular vault showed intact hyaline cartilage with no bone exposure or significant degeneration. Attention was then directed back to the proximal femur. Retractors were placed around the proximal femur and box osteotome was used followed by canal finder and trochanteric reamer. Cylindrical reaming was performed. Progressive broach ing was then performed starting with a #10 broach and progressing final size, in a position of 10-15 degrees anteversion. [place] anteversion was within 5 degrees of stem position. The final size broach had excellent fit and fill of the patient's metaphysis and diaphysis. Calcar planing was performed. Trial reduction was then performed starting with appropriately sized femoral head and various neck extensions to evaluate stability, limb length equality, and soft tissue tension. Once these parameters were satisfactory, the corresponding final components were then called for. Trial components were removed. The femoral canal was sized for the centralizer and cement plug. Once the cement plug had been inserted distal to the planned length of the femoral component, the canal was pulse lavaged and brushed to remove any unstable bone. It was then dried with a lap sponge. Cement was mixed under vacuum conditions to decrease porosity and inserted into a cement gun. Distal centralizer was placed onto the femoral component with a bit of cement. The cement was allowed to reach a slightly doughy consistency and then the canal was filled retrograde with the cement gun. Thumb pressurization was performed three times. The femoral component was then inserted with the previously determined degree of anteversion. Excess cement was removed before it hardened completely. The femoral head was then impacted onto the [place] taper. Blood and debris were removed from the acetabular socket and the hip was then reduced and checked for stability, limb length and soft tissue tension. These parameters were found to be satisfactory; the wound was then thoroughly irrigated with normal saline. Final hemostasis was obtained using electrocautery. Closure of the capsule was performed meticulously using #3 Vicryl suture. Four avqqew-[id number] sutures were placed in the posterior capsule along with repair of the external rotators. The fascia makenzie was then repaired using combination of #3 Vicryl suture in interrupted fashion and Quill in running fashion. 2-0 Vicryl suture was used for the subcutaneous tissues and 3-0 Quill for the skin. Dermabond tape was then applied. The patient tolerated the procedure well. There were no complications and the wound bed was dry and there was no need for drain placement. Sterile dressing was then applied and the patient was carefully removed from the operating room table, placed on the stretcher and was taken to the recovery room in stable condition. Sponge and needle counts were correct.
[2020-09-16] MEDS ORDERED: diazePAM 5 MG TAB PO PRN (16:19)
[2020-09-16] MEDS ORDERED: TEMAZEPAM 15 MG CAP PO PRN (16:19)
[2020-09-16] MEDS ORDERED: NALOXONE 0.4 MG/ML 1 ML VIAL IV PRN (16:19)
[2020-09-16] MEDS ORDERED: HYDROmorphone 0.5 MG/0.5 ML SYRINGE IVP PRN (16:19)
[2020-09-16] MEDS ORDERED: MAGNESIUM HYDROXIDE 2,400 MG/10 ML CUP PO PRN (16:19)
[2020-09-16] MEDS: MEPERIDINE 50 MG/ML SYRINGE IVP ONE ×2 (16:46→16:56)
--- NOTE | 2020-09-16 17:03 | XR ---
EXAMINATION TYPE: XR Hip Limited RT DATE OF EXAM: 09/16/2020 COMPARISON: Yesterday HISTORY: Postop TECHNIQUE: Single view. FINDINGS: There is right hip prosthesis. Components appear in anatomic position. IMPRESSION: No complicating process seen.
[2020-09-16] MEDS ORDERED: MIDODRINE 5 MG TAB PEG/G-TUBE ONE (19:27)
[2020-09-16] MEDS ORDERED: SODIUM CHLORIDE 0.9% 1,000 ML IV ONE (19:28)
[2020-09-16] MEDS: DEXTROSE 5%-0.9% NACL 1,000 ML IV SCH (19:32)
[2020-09-16] MEDS: LACTATED RINGERS 1,000 ML IV SCH ×2 (19:33)
[2020-09-16] MEDS: SENNOSIDES-DOCUSATE SODIUM 1 EACH TAB PO SCH (22:05)
[2020-09-16] MEDS: LORazepam 1 MG TAB PEG/G-TUBE PRN (22:32)
[2020-09-17] MEDS: HYDROmorphone 1 MG/ML 1 ML SYRINGE IVP PRN ×2 (00:52→05:41)
[2020-09-17] MEDS: SODIUM CHLORIDE 0.9% 1,000 ML IV SCH ×2 (03:41→22:15)
[2020-09-17] MEDS: LACTATED RINGERS 1,000 ML IV SCH ×4 (03:42→23:18)
[2020-09-17 05:15] LABS: Basophils # (A) 0.1 k/uL (0-0.2); Basophils % (A) 1 %; Eosinophils # (A) 0.1 k/uL (0-0.7); Eosinophils % (A) 1 %; HCT 23.7 % (39.0-53.0); Lymphocytes # (A) 0.8 k/uL (1.0-4.8); Lymphocytes % (A) 14 %; MCH 32.9 pg (25.0-35.0); MCHC 33.5 g/dL (31.0-37.0); MCV 98.3 fL (80.0-100.0); Mean Platelet Volume 9.9; Monocytes # (A) 0.3 k/uL (0-1.0); Monocytes % (A) 5 %; Neutrophils # (A) 4.5 k/uL (1.3-7.7); Neutrophils % (A) 79 %; RBC 2.41 m/uL (4.30-5.90); RDW 13.4 % (11.5-15.5); WBC 5.7 k/uL (3.8-10.6)
[2020-09-17 05:33] LABS: HGB 7.9 gm/dL (13.0-17.5); Platelet Count 27 k/uL (150-450)
[2020-09-17] MEDS: DEXTROSE 5%-0.9% NACL 1,000 ML IV SCH (07:17)
--- NOTE | 2020-09-17 08:59 | P.PN ---
Subjective Progress Note Date: 09/17/20 Principal diagnosis: Femoral neck fracture right hip. Status post hemiarthroplasty right hip. This is a 60-year-old gentleman with multiple medical comorbidities who is postop day #1 status post having arthroplasty of the right hip. He is stable from an orthopedic standpoint. He has no new complaints or concerns today. Vital signs are stable. Objective - Vital Signs Vital signs: Vital Signs Temp 98.6 F 09/17/20 01:34 Pulse 130 H 09/17/20 08:55 Resp 14 09/17/20 07:30 BP 86/53 09/17/20 08:55 Pulse Ox 96 09/17/20 01:34 Intake & Output 09/16/20 09/17/20 09/17/20 18:59 06:59 18:59 Intake Total 2401 Output Total 350 Balance 2050 Weight 53 kg 59 kg Intake: IV 2401 Output: Urine 150 Estimated Blood Loss 200 Other: Voiding Method Urinal Urinal - Exam This is a pleasant 60-year-old male in no acute distress. He is alert and oriented 3. He is sitting up in a chair. Exam of the right hip reveals that his dressing is clean, dry and intact. He has full foot and ankle motion without difficulty or pain. Neurovascular status to the lower extremity is intact. - Labs CBC & Chem 7: 09/17/20 05:00 09/16/20 06:16 Labs: Abnormal Lab Results - Last 24 Hours (Table) 09/16/20 09/16/20 09/16/20 Range/Units 06:16 10:47 13:47 RBC (4.30-5.90) m/uL Hgb (13.0-17.5) gm/dL Hct (39.0-53.0) % Plt Count (150-450) k/uL Lymphocytes # (1.0-4.8) k/uL Carbon Dioxide 21.4 L (21.6-31.8) mmol/L Anion Gap 15.60 H (4.00-12.00) mmol/L Creatinine 0.5 L (0.6-1.5) mg/dL Glucose 66 L (70-110) mg/dL POC Glucose (mg/dL) 69 L 148 H (75-99) mg/dL 09/17/20 Range/Units 05:00 RBC 2.41 L (4.30-5.90) m/uL Hgb 7.9 L D (13.0-17.5) gm/dL Hct 23.7 L (39.0-53.0) % Plt Count 27 L (150-450) k/uL Lymphocytes # 0.8 L (1.0-4.8) k/uL Carbon Dioxide (21.6-31.8) mmol/L Anion Gap (4.00-12.00) mmol/L Creatinine (0.6-1.5) mg/dL Glucose (70-110) mg/dL POC Glucose (mg/dL) (75-99) mg/dL Assessment and Plan (1) Displaced fracture of right femoral neck Current Visit: Yes Status: Acute Code(s): S72.001A - FRACTURE OF UNSP PART OF NECK OF RIGHT FEMUR, INIT SNOMED Code(s): 0252288 (2) Fall Current Visit: Yes Status: Acute Code(s): W19.XXXA - UNSPECIFIED FALL, INITIAL ENCOUNTER SNOMED Code(s): 9191373 (3) Decubitus ulcer of buttock, stage 2 Current Visit: No Status: Acute Code(s): L89.302 - PRESSURE ULCER OF UNSPECIFIED BUTTOCK, STAGE 2 SNOMED Code(s): 53375792560145712 Plan: The clinical findings are discussed with the patient. He has been up with physical therapy this morning and did fairly well. We are planning discharge to inpatient rehab tomorrow if cleared medically.
[2020-09-17] MEDS: FAMOTIDINE 20 MG TAB PEG/G-TUBE SCH ×2 (09:15→20:29)
[2020-09-17] MEDS: MIDODRINE 5 MG TAB PEG/G-TUBE SCH ×2 (09:16→17:26)
[2020-09-17] MEDS: THIAMINE 100 MG TAB PEG/G-TUBE SCH (09:17)
[2020-09-17] MEDS: SODIUM CHLORIDE TAB 1 GM TAB PEG/G-TUBE SCH (09:17)
[2020-09-17] MEDS: LACOSAMIDE 50 MG TABLET PEG/G-TUBE SCH ×2 (09:17→20:29)
[2020-09-17] MEDS: HYDROmorphone 0.5 MG/0.5 ML SYRINGE IVP PRN (09:45)
[2020-09-17] MEDS ORDERED: LIDOCAINE URO-JET JELLY 2% 5 ML KIT URETHRAL ONE (10:14)
[2020-09-17] MEDS: HYDROcodone/APAP 5-325MG 1 EACH TAB PO PRN (10:52)
[2020-09-17 12:34] VITALS: BMI 17.6
--- NOTE | 2020-09-17 12:44 | P.PN ---
Subjective -year-old male was admitted for right hip fracture. Patient had a mechanical fall. Patient the was recently admitted for impacted subcapital fracture. Patient had a fall again found to have displaced fracture of the right femoral neck. Patient has a tracheostomy and a PEG tube sites of which doesn't appear to be infected. 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 Phenytoin was subsequently discontinued and patient was started on Keppra. Patient present sodium is 120. Patient u maria eugenia uses 2 feedings will not give an additional free water with tube feedings patient may have a competent of dehydration as well because of his recent nausea vomiting which improved at this time we'll hydrate him gently with the 50 mL of normal saline avoid any free water we'll repeat basic metabolic profile tomorrow. 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 09/16/2020 Patient's serum sodium improved although to fast went up from 120-135, probably 120 is a lab error. Patient will be started on D5 water because the correction of sodium was to fast. Patient blood sugars were low today after finding tsetse of 4 D5 water patient will be switched to D5 normal saline. Patient is medically stable to go for her arthritic surgery may need IV fluids because of his low normal blood pressures. 09/17/2020 Patient had right hip cemented unipolar hemiarthroplasty for his right hip femoral neck fracture. Patient was hypotensive probably because of pain medications received 1 L bolus last night. I do not have any basic metabolic profile available today. Constitutional: Denied any fatigue denied any fever. Cardio vascular: denied any chest pain, palpitations Gastrointestinal denied any nausea vomiting Pulmonary: Denied any shortness of breath cough Neurologic denied any new focal deficits All inpatient medications were reviewed and appropriate changes in these medications as dictated in the interval history and assessment and plan. Objective - Vital Signs Vital signs: Vital Signs Temp 98.3 F 09/17/20 10:18 Pulse 113 H 09/17/20 10:18 Resp 22 09/17/20 10:18 BP 86/60 09/17/20 10:18 Pulse Ox 96 09/17/20 01:34 Intake & Output 09/16/20 09/17/20 09/17/20 18:59 06:59 18:59 Intake Total 2401 Output Total 350 Balance 2050 Weight 53 kg 59 kg 59 kg Intake: IV 2400 Output: Urine 150 Estimated Blood Loss 200 Other: Voiding Method Urinal Urinal - Exam PHYSICAL EXAMINATION: GENERAL: The patient is alert and oriented x3, not in any acute distress. Thin built HEENT: Pupils are round and equally reacting to light. EOMI. No scleral icterus. No conjunctival pallor. Normocephalic, atraumatic. No pharyngeal erythema. CARDIOVASCULAR: S1 and S2 present. No murmurs, rubs, or gallops. PULMONARY: Chest is clear to auscultation, no wheezing or crackles. Chest basically site appears to be clean ABDOMEN: Soft, nontender, nondistended, normoactive bowel sounds. No palpable organomegaly. PEG tube in place MUSCULOSKELETAL: Deferred to orthopedic surgery EXTREMITIES: No cyanosis, clubbing, or pedal edema. NEUROLOGICAL: Gross neurological examination did not reveal any focal deficits. SKIN: No rashes. - Labs CBC & Chem 7: 09/17/20 05:00 09/16/20 06:16 Labs: Abnormal Lab Results - Last 24 Hours (Table) 09/16/20 09/17/20 Range/Units 13:47 05:00 RBC 2.41 L (4.30-5.90) m/uL Hgb 7.9 L D (13.0-17.5) gm/dL Hct 23.7 L (39.0-53.0) % Plt Count 27 L (150-450) k/uL Lymphocytes # 0.8 L (1.0-4.8) k/uL POC Glucose (mg/dL) 148 H (75-99) mg/dL Assessment and Plan Plan: -Hyponatremia: Patient probably has a combined hyponatremia with SIADH and hypovolemia, and sodium improved with fluid restrictions all tablets and sodium chloride IV. Improved will repeat basic metabolic profile for tomorrow -History of cancer of for oral cavity in remission has a tracheostomy and PEG tube in place -COPD without any acute exacerbation patient continues to smoke counseling regarding this was provided -Gastroesophageal reflux disease - continue with Keppra -Depression -Coronary artery disease -DVT prophylaxis as per primary service -Right hip fracture status post right hip hemiarthroplasty management as per primary service
[2020-09-17] MEDS ORDERED: SODIUM CHLORIDE 0.9% 500 ML 500 ML IV ONE (14:03)
--- NOTE | 2020-09-17 14:50 | CDI ---
Documentation Clarification Form Date: 09/17/2020 From: Sharon Adams RN, CCDS Admit Date: 09/15/2020 Patient Name: Blake Brown (M 60 Yrs) Visit Number: [id number] Discharge Date: Dr. Tyree Gutiérrez 09/15 HGB 12.8, HCT 37.2, PLT 37.2; on 09/17 HGB 7.9, HCT 23.7, PLT 27. The patient is postop day #1 status post having arthroplasty of the right hip. Please render your opinion what the abnormal findings may indicate. 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 He had previous impacted subcapital fracture with surgical intervention. 09/16 he was taken for a right hip unipolar hemiarthroplasty. His operative note has estimate blood loss of 200 ml. 09/17 at 13:35 Vital signs: 77/36 109 18 98.8 Treatment: .9NS 500 mls@ 999mls/hr IV (09/17 ) CBC with diff QD x3 Basic Metabolic Panel daily X1 09/18 Clinical significance of diagnostic testing and treatment CANNOT be assumed or coded without physician documentation of significance if any. Please clarify what abnormal laboratory signifies: Acute blood loss anemia, expected Unable to determine Other, please specify (Last Revision: May 2017) Acute blood loss anemia, expected MTDD
[2020-09-17] MEDS: KETOROLAC 15 MG/ML 1 ML VIAL IVP PRN ×2 (15:05→20:35)
--- NOTE | 2020-09-17 15:17 | CDI ---
Documentation Clarification Form Date: 09/17/2020 From: Sharon Adams RN, CCDS Admit Date: 09/15/2020 Patient Name: Blake Brown (M 60 Yrs) Visit Number: [id number] Discharge Date: Dr. 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 Thin built with BMI 17.6 Please render your opinion on these findings. History/Risk Factors: Squamous cell carcinoma of the oral cavity, PEG Tube, Trach, Femoral neck fracture right hip, Chronic hypotension, Daily alcohol use, Current every day smoker Clinical Indicators: 60-year-old male admit for fall , right hip fracture. His nutritional support is via PEG tube he has difficult chewing difficulty swallowing per nutrition assessment 09/15 Labs: Na 120, K+ 4.5, Cr: 0.44 Current BMI: 17.6 Insufficient energy intake: yes Weight Loss: Underweight (per Nutrition assessment) Loss of subcutaneous fat: yes Loss of muscle mass: Mild clavicle, temporal muscle wasting Treatment: 2 desiree HN goal rate of 50 ml/hr 30 ml free water flush ever 4 hours Dietary Consult: Yes .9NS 500 mls@ 999mls/hr IV (09/17 ) CBC with diff QD x3 Basic Metabolic Panel daily X1 09/18 Monitor Tube Feeding in your professional opinion, can you please clarify if these findings signify one of the following conditions? Mild Protein-Calorie Malnutrition Moderate Protein-Calorie Malnutrition Severe Protein-Calorie Malnutrition Other condition, please specify Unable to determine (Last Revision: February 2019) No malnutrition MTDD
[2020-09-17] MEDS: traMADol 50 MG TAB PO PRN (17:26)
[2020-09-17] MEDS: SENNOSIDES-DOCUSATE SODIUM 1 EACH TAB PO SCH (20:29)
[2020-09-17] MEDS: GABAPENTIN 300 MG CAP PEG/G-TUBE PRN (20:35)
[2020-09-18] MEDS: KETOROLAC 15 MG/ML 1 ML VIAL IVP PRN ×3 (06:16→19:52)
[2020-09-18] MEDS: DEXTROSE 5%-0.9% NACL 1,000 ML IV SCH ×2 (06:49→21:28)
[2020-09-18] MEDS: MIDODRINE 5 MG TAB PEG/G-TUBE SCH ×2 (08:03→16:28)
[2020-09-18] MEDS: LACOSAMIDE 50 MG TABLET PEG/G-TUBE SCH ×2 (08:03→20:36)
[2020-09-18] MEDS: SODIUM CHLORIDE TAB 1 GM TAB PEG/G-TUBE SCH (08:03)
[2020-09-18] MEDS: FAMOTIDINE 20 MG TAB PEG/G-TUBE SCH ×2 (08:03→20:36)
[2020-09-18] MEDS: THIAMINE 100 MG TAB PEG/G-TUBE SCH (08:04)
--- NOTE | 2020-09-18 08:45 | P.DS ---
Providers Date of admission: 09/15/20 08:03 Expected date of discharge: 09/18/20 Attending physician: Sergio Acosta Consults: 09/15/20 07:24 Consult Physician Urgent Consulting Provider: Alanya Denis Consult Reason/Comments: Surgical clearance, medical management Do you want consulting provider notified?: Yes Primary care physician: Beth Phanbal - Discharge Diagnosis(es) (1) Displaced fracture of right femoral neck Current Visit: Yes Status: Acute (2) Fall Current Visit: Yes Status: Acute (3) Decubitus ulcer of buttock, stage 2 Current Visit: No Status: Acute Hospital Course: This is a 60-year-old male who presented on 09/15/2020 after falling and sustaining injury to the right hip. He has history of nondisplaced, impacted femoral neck fracture from a fall on July 302019. He was being treated nonoperatively. The patient had a second fall this week and displaced his femoral neck fracture. On exam and x-ray in the emergency department she was found to have a displaced hip fracture. The pt is admitted to our service for surgical intervention and care. The patient is taken to surgery for hemiarthroplasty of the right hip. The pro cedure is performed without complication or sequelae. The patient is stable postoperatively. Vital signs are stable on postop day #2. The patient's platelets are low at 27. Hemoglobin is 7.9. The patient has multiple medical comorbidities and has a trach and PEG tube. There are no new complaints or concerns today. The patient is discharged to inpatient rehab pending medical clearance and pe nding placement today. Please refer to the med rec for accurate list of medications. Patient Condition at Discharge: Fair Plan - Discharge Summary Discharge Rx Participant: No New Discharge Prescriptions: New HYDROcodone/APAP 5-325MG [[place] 5-325] 1 - 2 tab PO Q6HR PRN #32 tab PRN Reason: Pain Sennosides-Docusate Sodium [Senokot-S] 1 tab PO BID #60 tablet No Action LORazepam [Ativan] 1 mg PEG/G-TUBE BID PRN PRN Reason: Anxiety Gabapentin [Neurontin] 300 mg PEG/G-TUBE TID PRN PRN Reason: Pain Prochlorperazine [Compazine] 10 mg PEG/G-TUBE Q6H PRN PRN Reason: Nausea Baclofen [Lioresal] 20 mg PEG/G-TUBE TID PRN PRN Reason: Muscle Spasm Folic Acid 1 mg PEG/G-TUBE DAILY Lacosamide [Vimpat] 50 mg PEG/G-TUBE BID #60 tablet Thiamine [Vitamin B-1] 100 mg PEG/G-TUBE DAILY Cyanocobalamin [Vitamin B-12] 500 mcg PEG/G-TUBE DAILY Midodrine [ProAmatine] 5 mg PEG/G-TUBE AC-BID Sodium Chloride Tab 1 gm PEG/G-TUBE DAILY Famotidine [Pepcid] 20 mg PEG/G-TUBE BID Discharge Medication List LORazepam [Ativan] 1 mg PEG/G-TUBE BID PRN 07/18/17 [History] Gabapentin [Neurontin] 300 mg PEG/G-TUBE TID PRN 02/28/20 [History] Baclofen [Lioresal] 20 mg PEG/G-TUBE TID PRN 05/05/20 [History] Prochlorperazine [Compazine] 10 mg PEG/G-TUBE Q6H PRN 05/05/20 [History] Folic Acid 1 mg PEG/G-TUBE DAILY 07/30/20 [History] Lacosamide [Vimpat] 50 mg PEG/G-TUBE BID #60 tablet 08/05/20 [Rx] Cyanocobalamin [Vitamin B-12] 500 mcg PEG/G-TUBE DAILY 09/15/20 [History] Famotidine [Pepcid] 20 mg PEG/G-TUBE BID 09/15/20 [History] Midodrine [ProAmatine] 5 mg PEG/G-TUBE AC-BID 09/15/20 [History] Sodium Chloride Tab 1 gm PEG/G-TUBE DAILY 09/15/20 [History] Thiamine [Vitamin B-1] 100 mg PEG/G-TUBE DAILY 09/15/20 [History] HYDROcodone/APAP 5-325MG [[place] 5-325] 1 - 2 tab PO Q6HR PRN #32 tab 09/16/20 [Rx] Sennosides-Docusate Sodium [Senokot-S] 1 tab PO BID #60 tablet 09/16/20 [Rx] Follow up Appointment(s)/Referral(s): Alina Campos MD [Primary Care Provider] - 1-2 days Sergio Acosta MD [STAFF PHYSICIAN] - 3 Weeks Activity/Diet/Wound Care/Special Instructions: PATIENTS HOME MEDICATIONS DOWN IN PHARMACY May bear wt as tolerated w walker. Keep Optifoam dressing intact 7-10 day. May shower 48h post op.
[2020-09-18 09:26] LABS: African American GFR (CKD) 127.6 (60.0-200.0); Anion Gap 5.1 mmol/L (4.00-12.00); BUN/Creat Ratio 21.67 Ratio (12.00-20.00); Calcium 8.1 mg/dL (8.7-10.3); Carbon Dioxide 24.9 mmol/L (21.6-31.8); Non-African American GFR(CKD) 110.1 (60.0-200.0)
--- NOTE | 2020-09-18 10:14 | P.PN ---
Subjective -year-old male was admitted for right hip fracture. Patient had a mechanical fall. Patient the was recently admitted for impacted subcapital fracture. Patient had a fall again found to have displaced fracture of the right femoral neck. Patient has a tracheostomy and a PEG tube sites of which doesn't appear to be infected. 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 Phenytoin was subsequently discontinued and patient was started on Keppra. Patient present sodium is 120. Patient u maria eugenia uses 2 feedings will not give an additional free water with tube feedings patient may have a competent of dehydration as well because of his recent nausea vomiting which improved at this time we'll hydrate him gently with the 50 mL of normal saline avoid any free water we'll repeat basic metabolic profile tomorrow. 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 09/16/2020 Patient's serum sodium improved although to fast went up from 120-135, probably 120 is a lab error. Patient will be started on D5 water because the correction of sodium was to fast. Patient blood sugars were low today after finding tsetse of 4 D5 water patient will be switched to D5 normal saline. Patient is medically stable to go for her arthritic surgery may need IV fluids because of his low normal blood pressures. 09/17/2020 Patient had right hip cemented unipolar hemiarthroplasty for his right hip femoral neck fracture. Patient was hypotensive probably because of pain medications received 1 L bolus last night. I do not have any basic metabolic profile available today. 09/18/2020 Patient is still having some pain in the surgical site area. Patient doesn't sodium is 133 today. Patient is medically stable to be discharged patient will follow up with the nephrology as an outpatient will continue with his salt tablets and patient only receives 30 mL of free water through the PEG tube every 4 hours. Constitutional: Denied any fatigue denied any fever. Cardio vascular: denied any chest pain, palpitations Gastrointestinal denied any nausea vomiting Pulmonary: Denied any shortness of breath cough Neurologic denied any new focal deficits All inpatient medications were reviewed and appropriate changes in these medications as dictated in the interval history and assessment and plan. Objective - Vital Signs Vital signs: Vital Signs Temp 97.7 F 09/18/20 06:25 Pulse 116 H 09/18/20 06:25 Resp 20 09/18/20 07:00 BP 84/54 09/18/20 06:25 Pulse Ox 93 L 09/18/20 06:25 Intake & Output 09/17/20 09/18/20 09/18/20 18:59 06:59 18:59 Intake Total 0 Output Total 1000 1000 Balance -1000 -1000 Weight 59 kg 60 kg Intake: Oral 0 Output: Urine 1000 1000 Coude 500 Other: Voiding Method Urinal Urinal Urinal - Exam PHYSICAL EXAMINATION: GENERAL: The patient is alert and oriented x3, not in any acute distress. Thin built HEENT: Pupils are round and equally reacting to light. EOMI. No scleral icterus. No conjunctival pallor. Normocephalic, atraumatic. No pharyngeal erythema. CARDIOVASCULAR: S1 and S2 present. No murmurs, rubs, or gallops. PULMONARY: Chest is clear to auscultation, no wheezing or crackles. Chest ba sically site appears to be clean ABDOMEN: Soft, nontender, nondistended, normoactive bowel sounds. No palpable organomegaly. PEG tube in place MUSCULOSKELETAL: Deferred to orthopedic surgery EXTREMITIES: No cyanosis, clubbing, or pedal edema. NEUROLOGICAL: Gross neurological examination did not reveal any focal deficits. SKIN: No rashes. - Labs CBC & Chem 7: 09/17/20 05:00 09/18/20 06:06 Labs: Abnormal Lab Results - Last 24 Hours (Table) 09/18/20 Range/Units 06:06 Sodium 133 L (135-145) mmol/L BUN/Creatinine Ratio 21.67 H (12.00-20.00) Ratio Glucose 112 H (70-110) mg/dL Calcium 8.1 L (8.7-10.3) mg/dL Assessment and Plan Plan: -Hyponatremia: Patient probably has a combined hyponatremia with SIADH and hypovolemia, and sodium improved with fluid restrictions all tablets and sodium chloride IV. -History of cancer of for oral cavity in remission has a tracheostomy and PEG tube in place -COPD without any acute exacerbation patient continues to smoke counseling regarding this was provided -Gastroesophageal reflux disease - continue with Keppra -Depression -Coronary artery disease -DVT prophylaxis and patient is not being discharged on any aspirin or any anticoagulation for DVT prophylaxis as his platelet count is only around 20,000 -Chronic normocytic anemia etiology is not known -Right hip fracture status post right hip hemiarthroplasty
[2020-09-18] MEDS: LACTATED RINGERS 1,000 ML IV SCH ×3 (10:16→16:27)
[2020-09-18] MEDS: GABAPENTIN 300 MG CAP PEG/G-TUBE PRN (12:39)
[2020-09-18] MEDS: SODIUM CHLORIDE 0.9% 1,000 ML IV SCH (16:25)
[2020-09-18] MEDS: SENNOSIDES-DOCUSATE SODIUM 1 EACH TAB PO SCH (20:36)
[2020-09-19] MEDS: LACTATED RINGERS 1,000 ML IV SCH ×4 (03:20→22:20)
[2020-09-19 06:47] LABS: Basophils % (A) 0 %; Eosinophils # (A) 0.1 k/uL (0-0.7); Eosinophils % (A) 2 %; Hypochromasia Slight; Lymphocytes # (A) 0.7 k/uL (1.0-4.8); Lymphocytes % (A) 17 %; MCH 32.3 pg (25.0-35.0); MCHC 32.2 g/dL (31.0-37.0); MCV 100.4 fL (80.0-100.0); Mean Platelet Volume 10.4; Monocytes # (A) 0.3 k/uL (0-1.0); Monocytes % (A) 6 %; Neutrophils # (A) 3.1 k/uL (1.3-7.7); Neutrophils % (A) 72 %; RBC 1.51 m/uL (4.30-5.90); RDW 13.5 % (11.5-15.5); WBC 4.2 k/uL (3.8-10.6)
[2020-09-19 06:54] LABS: Platelet Count 26 k/uL (150-450)
[2020-09-19 06:57] LABS: HGB 4.9 gm/dL (13.0-17.5)
[2020-09-19 06:58] LABS: HCT 15.2 % (39.0-53.0)
[2020-09-19] MEDS: FAMOTIDINE 20 MG TAB PEG/G-TUBE SCH ×2 (08:04→21:33)
[2020-09-19] MEDS: THIAMINE 100 MG TAB PEG/G-TUBE SCH (08:04)
[2020-09-19] MEDS: MIDODRINE 5 MG TAB PEG/G-TUBE SCH ×2 (08:04→16:05)
[2020-09-19] MEDS: SODIUM CHLORIDE TAB 1 GM TAB PEG/G-TUBE SCH (08:04)
[2020-09-19] MEDS: LACOSAMIDE 50 MG TABLET PEG/G-TUBE SCH ×2 (08:04→21:33)
[2020-09-19] MEDS: KETOROLAC 15 MG/ML 1 ML VIAL IVP PRN ×3 (08:04→21:33)
[2020-09-19 08:05] LABS: Basophils % (A) 0 %; Eosinophils # (A) 0.1 k/uL (0-0.7); Eosinophils % (A) 2 %; Lymphocytes # (A) 0.6 k/uL (1.0-4.8); Lymphocytes % (A) 14 %; MCH 32.3 pg (25.0-35.0); MCHC 32.3 g/dL (31.0-37.0); Mean Platelet Volume 10.9; Monocytes # (A) 0.2 k/uL (0-1.0); Monocytes % (A) 5 %; Neutrophils # (A) 3.1 k/uL (1.3-7.7); Neutrophils % (A) 75 %; RBC 1.45 m/uL (4.30-5.90); RDW 13.8 % (11.5-15.5); WBC 4.1 k/uL (3.8-10.6)
[2020-09-19 08:06] LABS: HCT 14.5 % (39.0-53.0); HGB 4.7 gm/dL (13.0-17.5); Platelet Count 21 k/uL (150-450)
--- NOTE | 2020-09-19 08:37 | P.PN ---
Subjective -year-old male was admitted for right hip fracture. Patient had a mechanical fall. Patient the was recently admitted for impacted subcapital fracture. Patient had a fall again found to have displaced fracture of the right femoral neck. Patient has a tracheostomy and a PEG tube sites of which doesn't appear to be infected. 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 Phenytoin was subsequently discontinued and patient was started on Keppra. Patient present sodium is 120. Patient u maria eugenia uses 2 feedings will not give an additional free water with tube feedings patient may have a competent of dehydration as well because of his recent nausea vomiting which improved at this time we'll hydrate him gently with the 50 mL of normal saline avoid any free water we'll repeat basic metabolic profile tomorrow. 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 09/16/2020 Patient's serum sodium improved although to fast went up from 120-135, probably 120 is a lab error. Patient will be started on D5 water because the correction of sodium was to fast. Patient blood sugars were low today after finding tsetse of 4 D5 water patient will be switched to D5 normal saline. Patient is medically stable to go for her arthritic surgery may need IV fluids because of his low normal blood pressures. 09/17/2020 Patient had right hip cemented unipolar hemiarthroplasty for his right hip femoral neck fracture. Patient was hypotensive probably because of pain medications received 1 L bolus last night. I do not have any basic metabolic profile available today. 09/18/2020 Patient is still having some pain in the surgical site area. Patient doesn't sodium is 133 today. Patient is medically stable to be discharged patient will follow up with the nephrology as an outpatient will continue with his salt tablets and patient only receives 30 mL of free water through the PEG tube every 4 hours. 09/19/2020 Patient's hemoglobin dropped by 3.0 do not have any basic metabolic referral evaluate this time patient is receiving lactated Ringer's at this time we will obtain a stat stat basic metabolic profile patient is receiving PRBC transfusion and patient will need 3 units of PRBC there is no evidence of acute GI bleed. Constitutional: Denied any fatigue denied any fever. Cardio vascular: denied any chest pain, palpitations Gastrointestinal denied any nausea vomiting Pulmonary: Denied any shortness of breath cough Neurologic denied any new focal deficits All inpatient medications were reviewed and appropriate changes in these medications as dictated in the interval history and assessment and plan. Objective - Vital Signs Vital signs: Vital Signs Temp 98.8 F 09/19/20 08:12 Pulse 100 09/19/20 08:12 Resp 16 09/19/20 08:12 BP 78/42 09/19/20 08:12 Pulse Ox 92 L 09/19/20 08:12 Intake & Output 09/18/20 09/19/20 09/19/20 18:59 06:59 18:59 Intake Total 0 Output Total 1050 Balance -1050 Weight 60 kg Intake: Oral 0 Output: Urine 1050 Other: Voiding Method Indwelling Catheter Indwelling Catheter Indwelling Catheter - Exam PHYSICAL EXAMINATION: GENERAL: The patient is alert and oriented x3, not in any acute distress. Thin built HEENT: Pupils are round and equally reacting to light. EOMI. No scleral icterus. patient conjunctival pallor. Normocephalic, atraumatic. No pharyngeal erythema. CARDIOVASCULAR: S1 and S2 present. No murmurs, rubs, or gallops. PULMONARY: Chest is clear to auscultation, no wheezing or crackles. Chest basically site appears to be clean ABDOMEN: Soft, nontender, nondistended, normoactive bowel sounds. No palpable organomegaly. PEG tube in place MUSCULOSKELETAL: Deferred to orthopedic surgery EXTREMITIES: No cyanosis, clubbing, or pedal edema. NEUROLOGICAL: Gross neurological examination did not reveal any focal deficits. SKIN: No rashes. - Labs CBC & Chem 7: 09/19/20 07:49 09/18/20 06:06 Labs: Abnormal Lab Results - Last 24 Hours (Table) 09/16/20 09/18/20 09/19/20 Range/Units 15:23 06:06 06:06 RBC 1.51 L (4.30-5.90) m/uL Hgb 4.9 L* D (13.0-17.5) gm/dL Hct 15.2 L* (39.0-53.0) % MCV 100.4 H (80.0-100.0) fL Plt Count 26 L (150-450) k/uL Lymphocytes # 0.7 L (1.0-4.8) k/uL Sodium 133 L (135-145) mmol/L BUN/Creatinine Ratio 21.67 H (12.00-20.00) Ratio Glucose 112 H (70-110) mg/dL Calcium 8.1 L (8.7-10.3) mg/dL Crossmatch See Detail 09/19/20 Range/Units 07:49 RBC 1.45 L (4.30-5.90) m/uL Hgb 4.7 L* (13.0-17.5) gm/dL Hct 14.5 L* (39.0-53.0) % MCV (80.0-100.0) fL Plt Count 21 L (150-450) k/uL Lymphocytes # 0.6 L (1.0-4.8) k/uL Sodium (135-145) mmol/L BUN/Creatinine Ratio (12.00-20.00) Ratio Glucose (70-110) mg/dL Calcium (8.7-10.3) mg/dL Crossmatch Assessment and Plan Plan: -Hyponatremia: Patient probably has a combined hyponatremia with SIADH and hypovolemia, and sodium improved with fluid restrictions all tablets and sodium chloride IV. The him today as patient is receiving lactated Ringer's. -Acute blood loss anemia most probably some sort from surgery and will require total 3 units of PRBC transfusion patient hemoglobin dropped to 4.7. -History of cancer of for oral cavity in remission has a tracheostomy and PEG tube in place -COPD without any acute exacerbation patient continues to smoke counseling regarding this was provided -Gastroesophageal reflux disease - continue with Keppra -Depression -Coronary artery disease -DVT prophylaxis and patient is not being discharged on any aspirin or any anticoagulation for DVT prophylaxis as his platelet count is only around 20,000 -Chronic normocytic anemia etiology is not known -Right hip fracture status post right hip hemiarthroplasty
[2020-09-19 08:43] LABS: African American GFR (CKD) >90 (>60 ml/min/1.73 sqM); Anion Gap 4 mmol/L; Blood Urea Nitrogen 14 mg/dL (9-20); Calcium 8.3 mg/dL (8.4-10.2); Carbon Dioxide 29 mmol/L (22-30); Chloride 102 mmol/L (98-107); Glucose 117 mg/dL (74-99); Non-African American GFR(CKD) >90 (>60 ml/min/1.73 sqM); Potassium 4.2 mmol/L (3.5-5.1); Sodium 135 mmol/L (137-145)
--- NOTE | 2020-09-19 09:18 | P.PN ---
Subjective Progress Note Date: 09/19/20 Principal diagnosis: Femoral neck fracture right hip. Status post hemiarthroplasty right hip. This is a 60-year-old gentleman with multiple medical comorbidities who is postop day #3 status post Hemiarthroplasty of the right hip. He is stable from an orthopedic standpoint. His hemoglobin has dropped to 4.7. Platelets are 21. His discharge was held. We have not yet found a rehab facility that will accept the patient and his insurance. Objective - Vital Signs Vital signs: Vital Signs Temp 98.5 F 09/19/20 09:13 Pulse 87 09/19/20 09:13 Resp 16 09/19/20 09:13 BP 89/56 09/19/20 09:13 Pulse Ox 92 L 09/19/20 08:12 Intake & Output 09/18/20 09/19/20 09/19/20 18:59 06:59 18:59 Intake Total 0 0 Output Total 1050 Balance -1050 0 Weight 60 kg Intake: Oral 0 Blood Product 0 Rc Pheresis As-3 Unit 0 [id number] Output: Urine 1050 Other: Voiding Method Indwelling Catheter Indwelling Catheter Indwelling Catheter - Exam This is a pleasant 60-year-old male in no acute distress. He is alert and oriented 3. He is currently receiving blood transfusion. Exam of the right hip reveals that his dressing is clean, dry and intact. The thigh and hip have mild swelling but compartments are soft. He has full foot and ankle motion without difficulty or pain. Neurovascular status to the lower extremity is intact. - Labs CBC & Chem 7: 09/19/20 07:49 09/19/20 06:06 Labs: Abnormal Lab Results - Last 24 Hours (Table) 09/16/20 09/18/20 09/19/20 Range/Units 15:23 06:06 06:06 RBC 1.51 L (4.30-5.90) m/uL Hgb 4.9 L* D (13.0-17.5) gm/dL Hct 15.2 L* (39.0-53.0) % MCV 100.4 H (80.0-100.0) fL Plt Count 26 L (150-450) k/uL Lymphocytes # 0.7 L (1.0-4.8) k/uL Sodium 133 L (135-145) mmol/L Creatinine (0.66-1.25) mg/dL BUN/Creatinine Ratio 21.67 H (12.00-20.00) Ratio Glucose 112 H (70-110) mg/dL Calcium 8.1 L (8.7-10.3) mg/dL Crossmatch See Detail 09/19/20 09/19/20 Range/Units 06:06 07:49 RBC 1.45 L (4.30-5.90) m/uL Hgb 4.7 L* (13.0-17.5) gm/dL Hct 14.5 L* (39.0-53.0) % MCV (80.0-100.0) fL Plt Count 21 L (150-450) k/uL Lymphocytes # 0.6 L (1.0-4.8) k/uL Sodium 135 L (135-145) mmol/L Creatinine 0.53 L (0.66-1.25) mg/dL BUN/Creatinine Ratio (12.00-20.00) Ratio Glucose 117 H (70-110) mg/dL Calcium 8.3 L (8.7-10.3) mg/dL Crossmatch Assessment and Plan (1) Displaced fracture of right femoral neck Current Visit: Yes Status: Acute Code(s): S72.001A - FRACTURE OF UNSP PART OF NECK OF RIGHT FEMUR, INIT SNOMED Code(s): 2487773 (2) Fall Current Visit: Yes Status: Acute Code(s): W19.XXXA - UNSPECIFIED FALL, INITIAL ENCOUNTER SNOMED Code(s): 6617153 (3) Decubitus ulcer of buttock, stage 2 Current Visit: No Status: Acute Code(s): L89.302 - PRESSURE ULCER OF UNSPECIFIED BUTTOCK, STAGE 2 SNOMED Code(s): 18526523710218175 Plan: The clinical findings are discussed with the patient. He is currently getting a blood transfusion. We will continue to work on placement on Monday.
[2020-09-19] MEDS: SODIUM CHLORIDE 0.9% 1,000 ML IV SCH (15:10)
[2020-09-19 18:24] LABS: Basophils % (A) 1 %; Eosinophils # (A) 0.1 k/uL (0-0.7); Eosinophils % (A) 1 %; HCT 22.9 % (39.0-53.0); Lymphocytes # (A) 1.1 k/uL (1.0-4.8); Lymphocytes % (A) 19 %; MCHC 34.8 g/dL (31.0-37.0); Mean Platelet Volume 13.3; Monocytes # (A) 0.3 k/uL (0-1.0); Monocytes % (A) 6 %; Neutrophils # (A) 4.2 k/uL (1.3-7.7); Neutrophils % (A) 72 %; Poikilocytosis Slight; RBC 2.42 m/uL (4.30-5.90); RDW 14.9 % (11.5-15.5); WBC 5.8 k/uL (3.8-10.6)
[2020-09-19 18:30] LABS: MCV 94.7 fL (80.0-100.0)
[2020-09-19 19:06] LABS: Anisocytosis (M) Present; Hypochromasia (M) Present; Platelet Count 27 k/uL (150-450); Polychromasia Present
[2020-09-19] MEDS: DEXTROSE 5%-0.9% NACL 1,000 ML IV SCH (19:27)
[2020-09-19] MEDS: SENNOSIDES-DOCUSATE SODIUM 1 EACH TAB PO SCH (21:33)
[2020-09-20] MEDS: LORazepam 1 MG TAB PEG/G-TUBE PRN ×2 (03:39→23:01)
[2020-09-20 06:26] LABS: HGB 9.2 gm/dL (13.0-17.5); Hypochromasia Slight; MCH 32.1 pg (25.0-35.0); MCHC 32.8 g/dL (31.0-37.0); Mean Platelet Volume 11.5; Poikilocytosis Slight; RBC 2.85 m/uL (4.30-5.90); RDW 14.9 % (11.5-15.5); WBC 8.1 k/uL (3.8-10.6)
[2020-09-20 06:28] LABS: Platelet Count 40 k/uL (150-450)
[2020-09-20] MEDS ORDERED: IPRATROPIUM-ALBUTEROL 3 ML NEB INHALATION PRN (09:21)
--- NOTE | 2020-09-20 09:32 | P.PN ---
Subjective -year-old male was admitted for right hip fracture. Patient had a mechanical fall. Patient the was recently admitted for impacted subcapital fracture. Patient had a fall again found to have displaced fracture of the right femoral neck. Patient has a tracheostomy and a PEG tube sites of which doesn't appear to be infected. 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 Phenytoin was subsequently discontinued and patient was started on Keppra. Patient present sodium is 120. Patient u maria eugenia uses 2 feedings will not give an additional free water with tube feedings patient may have a competent of dehydration as well because of his recent nausea vomiting which improved at this time we'll hydrate him gently with the 50 mL of normal saline avoid any free water we'll repeat basic metabolic profile tomorrow. 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 09/16/2020 Patient's serum sodium improved although to fast went up from 120-135, probably 120 is a lab error. Patient will be started on D5 water because the correction of sodium was to fast. Patient blood sugars were low today after finding tsetse of 4 D5 water patient will be switched to D5 normal saline. Patient is medically stable to go for her arthritic surgery may need IV fluids because of his low normal blood pressures. 09/17/2020 Patient had right hip cemented unipolar hemiarthroplasty for his right hip femoral neck fracture. Patient was hypotensive probably because of pain medications received 1 L bolus last night. I do not have any basic metabolic profile available today. 09/18/2020 Patient is still having some pain in the surgical site area. Patient doesn't sodium is 133 today. Patient is medically stable to be discharged patient will follow up with the nephrology as an outpatient will continue with his salt tablets and patient only receives 30 mL of free water through the PEG tube every 4 hours. 09/19/2020 Patient's hemoglobin dropped by 3.0 do not have any basic metabolic referral evaluate this time patient is receiving lactated Ringer's at this time we will obtain a stat stat basic metabolic profile patient is receiving PRBC transfusion and patient will need 3 units of PRBC there is no evidence of acute GI bleed. 09/20/2020 Patient became hypoxic because of the thick secretions improved after suctioning. Patient will be started on inhalational treatments to thin the secretions and echo for they're discolored patient will be started on antibiotics for bronchitis. Patient is still bit short of breath and unable to talk because of the thick secretions. All the lungs sound clear will obtain a chest x-ray. Patient is tachycardic with heart rate in 120s we'll obtain an EKG. Patient received PRBC transfusion present hemoglobin is about 8 received total of 3 units of PRBC.. Review of systems: Unable to assess All inpatient medications were reviewed and appropriate changes in these medications as dictated in the interval history and assessment and plan. Objective - Vital Signs Vital signs: Vital Signs Temp 97.7 F 09/20/20 08:19 Pulse 116 H 09/20/20 08:19 Resp 18 09/20/20 08:19 BP 112/79 09/20/20 08:19 Pulse Ox 92 L 09/20/20 08:24 Intake & Output 09/19/20 09/20/20 09/20/20 18:59 06:59 18:59 Intake Total 930 0 Output Total 600 Balance 330 0 Weight 62.5 kg Intake: Oral 0 Blood Product 930 Rc Pheresis As-3 Unit 310 [id number] Rc Pheresis As-3 Unit 310 [id number] Rc Pheresis As-3 Unit 310 [id number] Output: Urine 600 Other: Voiding Method Indwelling Catheter Indwelling Catheter # Bowel Movements 1 - Exam PHYSICAL EXAMINATION: GENERAL: The patient is alert and oriented x3, not in any acute distress. Thin built HEENT: Pupils are round and equally reacting to light. EOMI. No scleral icterus. patient conjunctival pallor. Normocephalic, atraumatic. No pharyngeal erythema. CARDIOVASCULAR: S1 and S2 present. No murmurs, rubs, or gallops. PULMONARY: Chest is clear to auscultation, no wheezing or crackles. Chest basically site appears to be clean ABDOMEN: Soft, nontender, nondistended, normoactive bowel sounds. No palpable organomegaly. PEG tube in place MUSCULOSKELETAL: Deferred to orthopedic surgery EXTREMITIES: No cyanosis, clubbing, or pedal edema. NEUROLOGICAL: Gross neurological examination did not reveal any focal deficits. SKIN: No rashes. - Labs CBC & Chem 7: 09/20/20 06:08 09/19/20 06:06 Labs: Abnormal Lab Results - Last 24 Hours (Table) 09/16/20 09/19/20 09/20/20 Range/Units 15:23 18:06 06:08 RBC 2.42 L 2.85 L (4.30-5.90) m/uL Hgb 8.0 L D 9.2 L (13.0-17.5) gm/dL Hct 22.9 L 28.0 L (39.0-53.0) % Plt Count 27 L 40 L (150-450) k/uL Crossmatch See Detail Assessment and Plan Plan: -Hyponatremia: Patient probably has a combined hyponatremia with SIADH and hypovolemia, and sodium improved with fluid restrictions all tablets and sodium chloride IV. stop lactated Ringer's. acute hypoxic resp failure: Chest X ray. Due to mucous. Tachycardia: Obtain ECG -Acute blood loss anemia most probably some sort from surgery received 2 units of PRBCs no evidence of acute GI bleed or any other bleeding at this time. -History of cancer of for oral cavity in remission has a tracheostomy and PEG tube in place -COPD without any acute exacerbation patient continues to smoke counseling regarding this was provided -Gastroesophageal reflux disease - continue with Keppra -Depression -Coronary artery disease -DVT prophylaxis and patient is not being discharged on any aspirin or any anticoagulation for DVT prophylaxis as his platelet count is only around 20,000 -Chronic normocytic anemia etiology is not known -Right hip fracture status post right hip hemiarthroplasty
[2020-09-20] MEDS: MIDODRINE 5 MG TAB PEG/G-TUBE SCH ×2 (09:51→18:11)
[2020-09-20] MEDS: THIAMINE 100 MG TAB PEG/G-TUBE SCH (09:51)
[2020-09-20] MEDS: SODIUM CHLORIDE TAB 1 GM TAB PEG/G-TUBE SCH (09:51)
[2020-09-20] MEDS: LACOSAMIDE 50 MG TABLET PEG/G-TUBE SCH ×2 (09:51→21:40)
[2020-09-20] MEDS: FAMOTIDINE 20 MG TAB PEG/G-TUBE SCH ×2 (09:51→21:40)
--- NOTE | 2020-09-20 09:56 | XR ---
EXAMINATION TYPE: XR chest 1V DATE OF EXAM: 09/20/2020 COMPARISON: Prior chest x-ray 09/15/2020, CT 08/04/2020 HISTORY: Congestive heart failure follow-up TECHNIQUE: Single frontal view of the chest is obtained. FINDINGS: Tracheostomy tube is overlying the tracheal air column, there are surgical clips over the right lower neck and right chest, there is a port in the left pectoral region, distal tip is at the c avoatrial junction. Cardiac mediastinal silhouette is stable. No evident airspace disease, pneumothor ax, or pleural effusion. Some minimal prominence of interstitium present at the lung bases. Prominent lung volumes are consistent with COPD. Nodular densities in the right lung not as well seen as on CT . IMPRESSION: No acute process. There is underlying emphysema. Additional findings above.
[2020-09-20] MEDS: HYDROcodone/APAP 5-325MG 1 EACH TAB PO PRN ×2 (10:04→18:15)
--- NOTE | 2020-09-20 10:05 | P.PN ---
Subjective Progress Note Date: 09/20/20 Principal diagnosis: Femoral neck fracture right hip. Status post hemiarthroplasty right hip. This is a 60-year-old gentleman with multiple medical comorbidities who is postop day #4 status post Hemiarthroplasty of the right hip. He is stable from an orthopedic standpoint. His hemoglobin is 9.2 this morning. Platelets are 40. No new complaints or concerns today. Objective - Vital Signs Vital signs: Vital Signs Temp 97.7 F 09/20/20 08:19 Pulse 117 H 09/20/20 09:46 Resp 18 09/20/20 08:19 BP 112/79 09/20/20 08:19 Pulse Ox 92 L 09/20/20 08:24 Intake & Output 09/19/20 09/20/20 09/20/20 18:59 06:59 18:59 Intake Total 930 0 Output Total 600 Balance 330 0 Weight 62.5 kg Intake: Oral 0 Blood Product 930 Rc Pheresis As-3 Unit 310 [id number] Rc Pheresis As-3 Unit 310 [id number] Rc Pheresis As-3 Unit 310 [id number] Output: Urine 600 Other: Voiding Method Indwelling Catheter Indwelling Catheter # Bowel Movements 1 - Exam This is a pleasant 60-year-old male in no acute distress. He is alert and oriented 3. Exam of the right hip reveals that his dressing is clean, dry and intact. He has increased ecchymosis to the right hip. No erythema. The thigh and hip have mild to moderate swelling but compartments are soft. He has full foot and ankle motion without difficulty or pain. Neurovascular status to the lower extremity is intact. - Labs CBC & Chem 7: 09/20/20 06:08 09/19/20 06:06 Labs: Abnormal Lab Results - Last 24 Hours (Table) 09/16/20 09/19/20 09/20/20 Range/Units 15:23 18:06 06:08 RBC 2.42 L 2.85 L (4.30-5.90) m/uL Hgb 8.0 L D 9.2 L (13.0-17.5) gm/dL Hct 22.9 L 28.0 L (39.0-53.0) % Plt Count 27 L 40 L (150-450) k/uL Crossmatch See Detail Assessment and Plan (1) Displaced fracture of right femoral neck Current Visit: Yes Status: Acute Code(s): S72.001A - FRACTURE OF UNSP PART OF NECK OF RIGHT FEMUR, INIT SNOMED Code(s): 1782104 (2) Fall Current Visit: Yes Status: Acute Code(s): W19.XXXA - UNSPECIFIED FALL, INITIAL ENCOUNTER SNOMED Code(s): 6981899 (3) Decubitus ulcer of buttock, stage 2 Current Visit: No Status: Acute Code(s): L89.302 - PRESSURE ULCER OF UNSPECIFIED BUTTOCK, STAGE 2 SNOMED Code(s): 40001116296511112 Plan: The clinical findings are discussed with the patient. Continue care. We will continue to work on placement on Monday.
[2020-09-20 10:59] LABS: African American GFR (CKD) 119.7 (60.0-200.0); Anion Gap 6.5 mmol/L (4.00-12.00); BUN/Creat Ratio 37.14 Ratio (12.00-20.00); Calcium 8.6 mg/dL (8.7-10.3); Carbon Dioxide 27.5 mmol/L (21.6-31.8); Non-African American GFR(CKD) 103.3 (60.0-200.0); Potassium 4.3 mmol/L (3.5-5.5)
[2020-09-20] MEDS: SODIUM CHLORIDE 0.9% 1,000 ML IV SCH (11:11)
[2020-09-20] MEDS: LACTATED RINGERS 1,000 ML IV SCH (17:36)
[2020-09-20] MEDS: SENNOSIDES-DOCUSATE SODIUM 1 EACH TAB PO SCH (21:40)
[2020-09-21 06:03] LABS: HCT 28.3 % (39.0-53.0); HGB 9.1 gm/dL (13.0-17.5); MCHC 32.2 g/dL (31.0-37.0); MCV 96.3 fL (80.0-100.0); Mean Platelet Volume 12.4; RBC 2.94 m/uL (4.30-5.90); RDW 14.7 % (11.5-15.5); WBC 9.7 k/uL (3.8-10.6)
[2020-09-21 06:04] LABS: Platelet Count 51 k/uL (150-450)
[2020-09-21 06:35] LABS: Large Platelets Present; Lymphocytes # (M) 1.94 k/uL (1.0-4.8); Monocytes # (M) 0.29 k/uL (0-1.0); Neutrophils # (M) 7.47 k/uL (1.3-7.7); Neutrophils % (M) 77 %; Nucleated Red Blood Cells 0 /100 WBC (0-0); Total Cells Counted 200
[2020-09-21] MEDS: SODIUM CHLORIDE 0.9% 1,000 ML IV SCH (08:27)
[2020-09-21] MEDS: MIDODRINE 5 MG TAB PEG/G-TUBE SCH (08:28)
[2020-09-21] MEDS: LACOSAMIDE 50 MG TABLET PEG/G-TUBE SCH (08:28)
[2020-09-21] MEDS: SODIUM CHLORIDE TAB 1 GM TAB PEG/G-TUBE SCH (08:28)
[2020-09-21] MEDS: FAMOTIDINE 20 MG TAB PEG/G-TUBE SCH (08:28)
[2020-09-21] MEDS: traMADol 50 MG TAB PO PRN (08:29)
[2020-09-21] MEDS: THIAMINE 100 MG TAB PEG/G-TUBE SCH (08:29)
--- NOTE | 2020-09-21 08:50 | P.DS ---
Providers Date of admission: 09/15/20 08:03 Expected date of discharge: 09/21/20 Attending physician: Sergio Acosta Consults: 09/15/20 07:24 Consult Physician Urgent Consulting Provider: Alayna Denis Consult Reason/Comments: Surgical clearance, medical management Do you want consulting provider notified?: Yes Primary care physician: Beth Phanbal - Discharge Diagnosis(es) (1) Displaced fracture of right femoral neck Current Visit: Yes Status: Acute (2) Fall Current Visit: Yes Status: Acute (3) Decubitus ulcer of buttock, stage 2 Current Visit: No Status: Acute Hospital Course: This is a 60-year-old male who presented on 09/15/2020 after falling and sustaining injury to the right hip. He has history of nondisplaced, impacted femoral neck fracture from a fall on July 302019. He was being treated nonoperatively. The patient had a second fall this week and displaced his femoral neck fracture. On exam and x-ray in the emergency department she was found to have a displaced hip fracture. The pt is admitted to our service for surgical intervention and care. The patient is taken to surgery for hemiarthroplasty of the right hip. The pro cedure is performed without complication or sequelae. The patient is stable postoperatively. Vital signs are stable on postop day #5. The patient had transfusion of packed red blood cells on postoperative day #3 for hemoglobin of 4.7. The patient's platelets are improved at 51. Hemoglobin is 9.1. The patient has multiple medical comorbidities and has a trach and PEG tube. There are no new complaints or concerns today. The patient is discharged to inpatient rehab pending medical clearance and pending placement today. Please refer to the med rec for accurate list of medications. Patient Condition at Discharge: Fair Plan - Discharge Summary Discharge Rx Participant: No New Discharge Prescriptions: New HYDROcodone/APAP 5-325MG [[place] 5-325] 1 - 2 tab PO Q6HR PRN #32 tab PRN Reason: Pain Sennosides-Docusate Sodium [Senokot-S] 1 tab PO BID #60 tablet Continue LORazepam [Ativan] 1 mg PEG/G-TUBE BID PRN PRN Reason: Anxiety Gabapentin [Neurontin] 300 mg PEG/G-TUBE TID PRN PRN Reason: Pain Prochlorperazine [Compazine] 10 mg PEG/G-TUBE Q6H PRN PRN Reason: Nausea Baclofen [Lioresal] 20 mg PEG/G-TUBE TID PRN PRN Reason: Muscle Spasm Folic Acid 1 mg PEG/G-TUBE DAILY Lacosamide [Vimpat] 50 mg PEG/G-TUBE BID #60 tablet Thiamine [Vitamin B-1] 100 mg PEG/G-TUBE DAILY Cyanocobalamin [Vitamin B-12] 500 mcg PEG/G-TUBE DAILY Midodrine [ProAmatine] 5 mg PEG/G-TUBE AC-BID Sodium Chloride Tab 1 gm PEG/G-TUBE DAILY Famotidine [Pepcid] 20 mg PEG/G-TUBE BID Discharge Medication List LORazepam [Ativan] 1 mg PEG/G-TUBE BID PRN 07/18/17 [History] Gabapentin [Neurontin] 300 mg PEG/G-TUBE TID PRN 02/28/20 [History] Baclofen [Lioresal] 20 mg PEG/G-TUBE TID PRN 05/05/20 [History] Prochlorperazine [Compazine] 10 mg PEG/G-TUBE Q6H PRN 05/05/20 [History] Folic Acid 1 mg PEG/G-TUBE DAILY 07/30/20 [History] Lacosamide [Vimpat] 50 mg PEG/G-TUBE BID #60 tablet 08/05/20 [Rx] Cyanocobalamin [Vitamin B-12] 500 mcg PEG/G-TUBE DAILY 09/15/20 [History] Famotidine [Pepcid] 20 mg PEG/G-TUBE BID 09/15/20 [History] Midodrine [ProAmatine] 5 mg PEG/G-TUBE AC-BID 09/15/20 [History] Sodium Chloride Tab 1 gm PEG/G-TUBE DAILY 09/15/20 [History] Thiamine [Vitamin B-1] 100 mg PEG/G-TUBE DAILY 09/15/20 [History] HYDROcodone/APAP 5-325MG [[place] 5-325] 1 - 2 tab PO Q6HR PRN #32 tab 09/16/20 [Rx] Sennosides-Docusate Sodium [Senokot-S] 1 tab PO BID #60 tablet 09/16/20 [Rx] Follow up Appointment(s)/Referral(s): Alina Campos MD [Primary Care Provider] - 3 Days Sergio Acosta MD [STAFF PHYSICIAN] - 3 Weeks Skinny Acosta DO [STAFF PHYSICIAN] - 1 Week Activity/Diet/Wound Care/Special Instructions: PATIENTS HOME MEDICATIONS DOWN IN PHARMACY May bear wt as tolerated w walker. Keep Optifoam dressing intact 7-10 day. May shower 48h post op.
[2020-09-21 13:45] VITALS: BP 111/77; PULSE 88; RESP 19; TEMP 99.1
--- NOTE | 2020-09-21 15:12 | P.PN ---
Subjective Progress Note Date: 09/21/20 60 year-old male was admitted for right hip fracture. Patient had a mechanical fall. Patient the was recently admitted for impacted subcapital fracture. Patient had a fall again found to have displaced fracture of the right femoral neck. Patient has a tracheostomy and a PEG tube sites of which doesn't appear to be infected. 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 Phenytoin was subsequently discontinued and patient was started on Keppra. Patient present sodium is 120. Patient usually uses 2 feedings will not give an additional free water with tube feedings patient may have a competent of dehydration as well because of his recent nausea vomiting which improved at this time we'll hydrate him gently with the 50 mL of normal saline avoid any free water we'll repeat basic metabolic profile tomorrow. 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 09/16/2020 Patient's serum sodium improved although to fast went up from 120-135, probably 120 is a lab error. Patient will be started on D5 water because the correction of sodium was to fast. Patient blood sugars were low today after finding tsetse of 4 D5 water patient will be switched to D5 normal saline. Patient is medically stable to go for her arthritic surgery may need IV fluids because of his low normal blood pressures. 09/17/2020 Patient had right hip cemented unipolar hemiarthroplasty for his right hip femoral neck fracture. Patient was hypotensive probably because of pain medications received 1 L bolus last night. I do not have any basic metabolic profile available today. 09/18/2020 Patient is still having some pain in the surgical site area. Patient doesn't sodium is 133 today. Patient is medically stable to be discharged patient will follow up with the nephrology as an outpatient will continue with his salt tablets and patient only receives 30 mL of free water through the PEG tube every 4 hours. 09/19/2020 Patient's hemoglobin dropped by 3.0 do not have any basic metabolic referral evaluate this time patient is receiving lactated Ringer's at this time we will obtain a stat stat basic metabolic profile patient is receiving PRBC transfusion and patient will need 3 units of PRBC there is no evidence of acute GI bleed. 09/20/2020 Patient became hypoxic because of the thick secretions improved after suctioning. Patient will be started on inhalational treatments to thin the secretions and echo for they're discolored patient will be started on antibiotics for bronchitis. Patient is still bit short of breath and unable to talk because of the thick secretions. All the lungs sound clear will obtain a chest x-ray. Patient is tachycardic with heart rate in 120s we'll obtain an EKG. Patient received PRBC transfusion present hemoglobin is about 8 received total of 3 units of PRBC.. 09/21/2020 Patient is seen and evaluated in follow-up was currently on oxygen via trach although had recent suctioning with the possibility of a mucous plug and is currently 95% on room air. Patient did receive PRBCs and hemoglobin is stable at 9.1 with no active bleeding noted. Most recent sodium shows 141 and patient is maintained on sodium chloride tablets. Patient will need close outpatient follow-up with nephrology. Chest x-ray yesterday shows no acute process with underlying emphysema. Review of systems: Unable to assess All inpatient medications were reviewed and appropriate changes in these medications as dictated in the interval history and assessment and plan. Objective - Vital Signs Vital signs: Vital Signs Temp 98.4 F 09/21/20 08:00 Pulse 118 H 09/21/20 08:00 Resp 20 09/21/20 08:00 BP 117/79 09/21/20 08:00 Pulse Ox 89 L 09/21/20 08:00 Intake & Output 09/20/20 09/21/20 09/21/20 18:59 06:59 18:59 Intake Total 330 Output Total 600 450 Balance -270 -450 Weight 62.5 kg Intake: Oral 0 Tube Feeding 330 Output: Urine 600 450 Other: Voiding Method Indwelling Catheter # Bowel Movements 1 - Exam GENERAL: The patient is alert and oriented x3, not in any acute distress. Thin built HEENT: Pupils are round and equally reacting to light. EOMI. No scleral icterus. patient conjunctival pallor. Normocephalic, atraumatic. No pharyngeal erythema. CARDIOVASCULAR: S1 and S2 present. No murmurs, rubs, or gallops. PULMONARY: Chest is clear to auscultation, no wheezing or crackles. ABDOMEN: Soft, nontender, nondistended, normoactive bowel sounds. No palpable organomegaly. PEG tube in place MUSCULOSKELETAL: Deferred to orthopedic surgery EXTREMITIES: No cyanosis, clubbing, or pedal edema. NEUROLOGICAL: Gross neurological examination did not reveal any focal deficits. SKIN: No rashes. - Labs CBC & Chem 7: 09/21/20 05:51 09/20/20 06:08 Labs: Abnormal Lab Results - Last 24 Hours (Table) 09/20/20 09/21/20 Range/Units 06:08 05:51 RBC 2.94 L (4.30-5.90) m/uL Hgb 9.1 L (13.0-17.5) gm/dL Hct 28.3 L (39.0-53.0) % Plt Count 51 L (150-450) k/uL BUN/Creatinine Ratio 37.14 H (12.00-20.00) Ratio Calcium 8.6 L (8.7-10.3) mg/dL Assessment and Plan Assessment: -Hyponatremia: Patient probably has a combined hyponatremia with SIADH and hypovolemia, and sodium improved with fluid restrictions, continue with sodium chloride tablets -acute hypoxic resp failure: Chest X ray showing no acute process. Most likely Due to mucous plug. -Tachycardia, improved -Acute blood loss anemia most probably from surgery received 2 units of PRBCs no evidence of acute GI bleed or any other bleeding at this time. -History of cancer of the oral cavity in remission has a tracheostomy and PEG tube in place -COPD without any acute exacerbation patient continues to smoke counseling regarding this was provided -Gastroesophageal reflux disease -Seizure disorder continue with Keppra -Depression -Coronary artery disease -DVT prophylaxis and patient is not being discharged on any aspirin or any anti coagulation for DVT prophylaxis as his platelet count is only around 20,000 -Chronic normocytic anemia etiology is not known -Right hip fracture status post right hip hemiarthroplasty Plan: Continue with current medications. Social work following and patient will be going to [facility] today. Patient will need outpatient close monitoring with nephrology. Patient was on oxygen although had suctioning for mucous plug and is currently 95% on room air. Hemoglobin is 9.1 today. Most recent sodium was 141 and will need repeat labs in a few days to monitor closely.
[2020-09-21 15:30] LABS: African American GFR (CKD) >90 (>60 ml/min/1.73 sqM); Anion Gap 7 mmol/L; Blood Urea Nitrogen 25 mg/dL (9-20); Calcium 8.5 mg/dL (8.4-10.2); Carbon Dioxide 28 mmol/L (22-30); Chloride 106 mmol/L (98-107); Glucose 116 mg/dL (74-99); Non-African American GFR(CKD) >90 (>60 ml/min/1.73 sqM); Potassium 4.6 mmol/L (3.5-5.1); Sodium 141 mmol/L (137-145)
== END 2020-09-21 15:39 | DRG 521 ==
LOC: EC 06:30 → 4SSUR 08:03
PROVIDERS: ADMIT Orthopaedic Surgery; ATTEND Orthopaedic Surgery
PROC: 3E0G76Z Introduction of Nutritional Substance into Upper GI, Via Natural or Artificial Opening (ICD-10-PCS; 2020-09-15)
PROC: 0SRR0J9 Replacement of Right Hip Joint, Femoral Surface with Synthetic Substitute, Cemented, Open Approach (ICD-10-PCS; principal; 2020-09-16 14:00)
PROC: 30233N1 Transfusion of Nonautologous Red Blood Cells into Peripheral Vein, Percutaneous Approach (ICD-10-PCS; 2020-09-19)
DX: S72.011A Unspecified intracapsular fracture of right femur, initial encounter for closed fracture (principal); J96.01 Acute respiratory failure with hypoxia; M25.00 Hemarthrosis, unspecified joint; D62 Acute posthemorrhagic anemia; E22.2 Syndrome of inappropriate secretion of antidiuretic hormone; Z91.81 History of falling; L89.322 Pressure ulcer of left buttock, stage 2; K21.9 Gastro-esophageal reflux disease without esophagitis; W18.30XA Fall on same level, unspecified, initial encounter; Z20.822 Contact with and (suspected) exposure to COVID-19; Z93.0 Tracheostomy status; Z93.1 Gastrostomy status; E86.1 Hypovolemia; F17.210 Nicotine dependence, cigarettes, uncomplicated; F32.9 Major depressive disorder, single episode, unspecified; G40.909 Epilepsy, unspecified, not intractable, without status epilepticus; I25.10 Atherosclerotic heart disease of native coronary artery without angina pectoris; I25.2 Old myocardial infarction; Z71.6 Tobacco abuse counseling; Z87.01 Personal history of pneumonia (recurrent); J44.9 Chronic obstructive pulmonary disease, unspecified; Z79.899 Other long term (current) drug therapy; Z85.819 Personal history of malignant neoplasm of unspecified site of lip, oral cavity, and pharynx; Z92.21 Personal history of antineoplastic chemotherapy; Z92.3 Personal history of irradiation; G62.9 Polyneuropathy, unspecified; R91.1 Solitary pulmonary nodule; R13.10 Dysphagia, unspecified; Z87.19 Personal history of other diseases of the digestive system; G89.29 Other chronic pain; M54.9 Dorsalgia, unspecified
CPT/HCPCS: 36415; 71045; 73501; 73502; 80048; 80053; 81003; 85025; 85027; 85610; 85730; 86850; 86900; 86901; 86920; 87635; 88305; 88311; 93005; 94640; 96372; 99284

== ENCOUNTER → 2020-12-17 | Outpatient (CLI) | payer MEDICAID, MEDICARE ==
--- NOTE | 2020-12-18 08:43 | CT ---
EXAMINATION TYPE: CT chest w con DATE OF EXAM: 12/17/2020 COMPARISON: 08/04/2020 HISTORY: Lung nodule. Pt reports no issue CT DLP: 177.80 mGycm Automated exposure control for dose reduction was used. TECHNIQUE: CT scan of the chest is performed with IV Contrast, patient injected with 100 mL of Isovue 300. MIP Images are created on CT scanner and reviewed. 3D reconstructed images are created on an independent workstation and reviewed. FINDINGS: LUNGS: Hyperinflation suggestive of COPD. There is interval reduction in size of the superior segment right lower lobe nodule which now measures 8 x 4 mm and produces measured 1.5 cm. Calcified nodule a long the medial posterior margin of the right lower lobe noted. There is a 3 mm nodule right upper lo be axial image 33 which is reduced in size and previously measured 1.5 cm. No other definitive nodule s are seen. MEDIASTINUM: Tracheostomy tube noted and there is atherosclerotic change aorta. No pathologic adenopa thy. Coronary artery calcification noted. OTHER: Hypertrophic and degenerative change of the spine. Splenic granuloma incidentally noted. Sugg estion of gastrostomy tube. Chronic appearing anterior wedge deformity midthoracic spine. IMPRESSION: 1. COPD with interval marked reduction in size of the previously described pulmonary nodules. Few nod ules persist but have improved in size relative to the prior exam as measured above.
== END | disposition home or self-care (01) ==
LOC: RADCTMAIN 19:19
PROVIDERS: ATTEND Internal Medicine Critical Care Medicine
DX: R91.8 Other nonspecific abnormal finding of lung field (principal); J44.9 Chronic obstructive pulmonary disease, unspecified
CPT/HCPCS: 71260; Q9967

== ENCOUNTER 2021-02-08 10:51 | Inpatient (IN) | payer MEDICAID, MEDICARE ==
[2021-02-08] MEDS ORDERED: NALOXONE 0.4 MG/ML 1 ML VIAL IVP STA (10:58)
[2021-02-08] MEDS ORDERED: SODIUM CHLORIDE 0.9% 1,000 ML IV STA (11:11)
[2021-02-08 11:15] LABS: Glucose,Whole Blood 105 mg/dL (75-99)
--- NOTE | 2021-02-08 11:17 | ED ---
General Adult HPI - General Chief complaint: Altered Mental Status Stated complaint: Unconscious Time Seen by Provider: 02/08/21 11:10 Source: EMS Mode of arrival: EMS Limitations: no limitations - History of Present Illness Initial comments: Dictation was produced using iAmplify dictation software. please excuse any grammatical, word or spelling errors. Chief Complaint: 60-year-old male presents with being unresponsive History of Present Illness: Patient is 60-year-old male is brought in by EMS from home. Patient has history of tongue cancer. His found to be unresponsive. EMS states that patient had normal blood sugar normal vitals. He had poor respiratory effort. Patient has history of tracheostomy. He had to be bagged by EMS en route to the emergency department for poor respiratory effort. Unable to obtain secondary to mental status. PHYSICAL EXAM: General Impression: Obtunded, non-decorticate, none to cerebral it, localizes painful stimuli, eyes closed, cachectic HEENT: Normocephalic atraumatic, dry mucous membranes, pupils equal Cardiovascular: Heart regular rate and rhythm Chest: Bilateral breath sounds Abdomen: abdomen soft, non-tender, non-distended, no organomegaly, feeding tube in place Musculoskeletal: Pulses present and equal in all extremities, no peripheral edema Neurological: Unresponsive ED course: 60-year-old male presents to the emergency department after being found unresponsive. Vital signs upon arrival shows temperature of 97, heart rate of 102, oxygen saturation of 86. Patient showing poor respiratory effort. He had an uncuffed tracheostomy tube. Cardiac tracheostomy tube was placed a call to the patient was placed on ventilator. Patient was given 2 mg sublingual injection of Narcan with no response. Patient shows very poor respiratory effort. Oxygenation improved after event placement. Chart review was performed. Shows the patient had a right hip fracture that was repaired by orthopedic surgery. Medications on our EMR were reviewed. There is concern that perhaps patient has history of alcohol abuse. EKG interpretation: Ventricular rate 92, sinus rhythm,. 126, QRS 76, QTC 529. No VT prolongation, , no ST or T-wave changes noted. EKG compared to Gen. 02/07/2021 showing no changes. QT prolongation Laboratory evaluation obtained. CBC is mostly unremarkable. Patient has history of thrombus cytopenia. Splenic on today's 36. No leukocytosis. Coag panel is negative. Metabolic panel shows mild hyponatremia 131. No acidosis. Blood gas is acceptable. Urinalysis is negative. Drug screen is negative. Tox labs are negative. For panel virus PCR is negative for flu, RSV and rotavirus. Computed tomography scan of the head and C-spine shows no acute processes chest x-ray shows perhaps right basilar airspace disease. Patient started on broad- spectrum metabolic. Pending blood cultures. Patient reevaluated at bedside. Patient warmed with active rewarming. Patient's vital signs otherwise remain stable and unremarkable. At this point is unclear what is causing patient's mental status changes. Patient will be admitted to the ICU. Case discussed with Dr. Dukes. Dr. Dukes requested neurology and hematology be consulted. [facility] - Related Data Home Medications Medication Instructions Recorded Confirmed LORazepam [Ativan] 1 mg PEG/G-TUBE BID PRN 07/18/17 09/15/20 Gabapentin [Neurontin] 300 mg PEG/G-TUBE TID PRN 02/28/20 09/15/20 Baclofen [Lioresal] 20 mg PEG/G-TUBE TID PRN 05/05/20 09/15/20 Cyanocobalamin [Vitamin B-12] 500 mcg PEG/G-TUBE DAILY 09/15/20 09/15/20 Famotidine [Pepcid] 20 mg PEG/G-TUBE BID 09/15/20 09/15/20 Midodrine [ProAmatine] 5 mg PEG/G-TUBE AC-BID 09/15/20 09/15/20 Sodium Chloride Tab 1 gm PEG/G-TUBE DAILY 09/15/20 09/15/20 Thiamine [Vitamin B-1] 100 mg PEG/G-TUBE DAILY 09/15/20 09/15/20 Aspirin EC [Ecotrin Low Dose] 81 mg PEG/G-TUBE DAILY 02/08/21 02/08/21 Ipratropium-Albuterol Nebulize 3 ml INHALATION RT-TID PRN 02/08/21 02/08/21 [Duoneb 0.5 mg-3 mg/3 ml Soln] Previous Rx's Medication Instructions Recorded Lacosamide [Vimpat] 50 mg PEG/G-TUBE BID #60 tablet 08/05/20 Allergies Allergy/AdvReac Type Severity Reaction Status Date / Time No Known Allergies Allergy Verified 02/08/21 13:15 Review of Systems ROS Statement: Those systems with pertinent positive or pertinent negative responses have been documented in the HPI. ROS Other: All systems not noted in ROS Statement are negative. Past Medical History Past Medical History: Cancer, COPD, GERD/Reflux, Myocardial Infarction ([place]), Pneumonia, Seizure Disorder Additional Past Medical History / Comment(s): 07/30/20 fall with impacted R hip fracture/tracheal bronchitis, hemoptysis, pulmonary nodules. 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 Last Myocardial Infarction Date:: 2014 History of Any Multi-Drug Resistant Organisms: None Reported Past Surgical History: Heart Catheterization Additional Past Surgical History / Comment(s): Oral surgery with resection floor of mouth/tongue/mandible and bilateral neck resection with skin graft taken fro m L upper arm at [facility], tracheostomy, peg tube Past Anesthesia/Blood Transfusion Reactions: No Reported Reaction Additional Past Anesthesia/Blood Transfusion Reaction / Comment(s): adopted - no family hx Past Psychological History: Anxiety, Depression Smoking Status: Current every day smoker - Past Family History Mother Family Medical History: Unable to Obtain Additional Family Medical History / Comment(s): pt is adopted General Exam Limitations: no limitations Course Vital Signs 02/08/21 02/08/21 02/08/21 10:52 11:00 11:26 Temperature 97 F L 95.9 F L Pulse Rate 102 H Respiratory 12 12 Rate Blood Pressure 115/85 O2 Sat by Pulse 86 L Oximetry 02/08/21 02/08/21 02/08/21 11:28 11:37 12:04 Temperature 95.0 F L Pulse Rate 86 80 80 Respiratory 12 12 14 Rate Blood Pressure 103/79 116/84 116/82 O2 Sat by Pulse 94 L 97 95 Oximetry 02/08/21 02/08/21 12:13 12:46 Temperature 95.2 F L 95.4 F L Pulse Rate 81 84 Respiratory 14 12 Rate Blood Pressure 116/82 104/79 O2 Sat by Pulse 100 97 Oximetry Medical Decision Making - Lab Data Result diagrams: 02/08/21 11:16 02/08/21 11:16 Lab Results 02/08/21 02/08/21 02/08/21 Range/Units 10:55 11:16 11:16 WBC 7.7 (3.8-10.6) k/uL RBC 4.51 (4.30-5.90) m/uL Hgb 14.8 (13.0-17.5) gm/dL Hct 42.8 (39.0-53.0) % MCV 94.9 (80.0-100.0) fL MCH 32.9 (25.0-35.0) pg MCHC 34.6 (31.0-37.0) g/dL RDW 12.8 (11.5-15.5) % Plt Count 36 L (150-450) k/uL MPV 9.3 Neutrophils % 82 % Lymphocytes % 8 % Monocytes % 6 % Eosinophils % 1 % Basophils % 1 % Neutrophils # 6.4 (1.3-7.7) k/uL Lymphocytes # 0.6 L (1.0-4.8) k/uL Monocytes # 0.5 (0-1.0) k/uL Eosinophils # 0.1 (0-0.7) k/uL Basophils # 0.0 (0-0.2) k/uL Manual Slide Review Performed RBC Morphology Normal PT 10.7 (9.0-12.0) sec INR 1.0 (<1.2) APTT 24.7 (22.0-30.0) sec Sample Site ABG pH (7.35-7.45) ABG pCO2 (35-45) mmHg ABG pO2 (83-108) mmHg ABG HCO3 (21-25) mmol/L ABG Total CO2 (19-24) mmol/L ABG O2 Saturation (94-97) % ABG Base Excess mmol/L Marcos Test FiO2 % Sodium (137-145) mmol/L Potassium (3.5-5.1) mmol/L Chloride (98-107) mmol/L Carbon Dioxide (22-30) mmol/L Anion Gap mmol/L BUN (9-20) mg/dL Creatinine (0.66-1.25) mg/dL Est GFR (CKD-EPI)AfAm (>60 ml/min/1.73 sqM) Est GFR (CKD-EPI)NonAf (>60 ml/min/1.73 sqM) Glucose (74-99) mg/dL POC Glucose (mg/dL) 105 H (75-99) mg/dL POC Glu Commercial Or Institutional Cleaner ID Ondina Caban Plasma Lactic Acid Turner (0.7-2.0) mmol/L Calcium (8.4-10.2) mg/dL Ionized Calcium Emmanuel (4.5-5.3) mg/dL Magnesium (1.6-2.3) mg/dL Total Bilirubin (0.2-1.3) mg/dL AST (17-59) U/L ALT (4-49) U/L Alkaline Phosphatase (38-126) U/L Ammonia (<30) umol/L Creatine Kinase (55-170) U/L Troponin I (0.000-0.034) ng/mL C-Reactive Protein (<1.0) mg/dL Total Protein (6.3-8.2) g/dL Albumin (3.5-5.0) g/dL TSH (0.465-4.680) mIU/L Urine Color Urine Appearance (Clear) Urine pH (5.0-8.0) Ur Specific [place] (1.001-1.035) Urine Protein (Negative) Urine Glucose (UA) (Negative) Urine Ketones (Negative) Urine Blood (Negative) Urine Nitrite (Negative) Urine Bilirubin (Negative) Urine Urobilinogen (<2.0) mg/dL Ur Leukocyte Esterase (Negative) Urine RBC (0-5) /hpf Urine WBC (0-5) /hpf Ur Squamous Epith Cells (0-4) /hpf Urine Bacteria (None) /hpf Hyaline Casts (0-2) /lpf Granular Casts (0) /lpf Urine Mucus (None) /hpf Salicylates mg/dL Urine Opiates Screen (NotDetected) Ur Oxycodone Screen (NotDetected) Urine Methadone Screen (NotDetected) Ur Propoxyphene Screen (NotDetected) Acetaminophen ug/mL Ur Barbiturates Screen (NotDetected) U Tricyclic Antidepress (NotDetected) Ur Phencyclidine Scrn (NotDetected) Ur Amphetamines Screen (NotDetected) U Methamphetamines Scrn (NotDetected) U Benzodiazepines Scrn (NotDetected) Urine Cocaine Screen (NotDetected) U Marijuana (THC) Screen (NotDetected) Serum Alcohol mg/dL Influenza Type A (PCR) (Not Detectd) Influenza Type B (PCR) (Not Detectd) RSV (PCR) (Not Detectd) SARS-CoV-2 (PCR) (Not Detectd) 02/08/21 02/08/21 02/08/21 Range/Units 11:16 11:16 11:16 WBC (3.8-10.6) k/uL RBC (4.30-5.90) m/uL Hgb (13.0-17.5) gm/dL Hct (39.0-53.0) % MCV (80.0-100.0) fL MCH (25.0-35.0) pg MCHC (31.0-37.0) g/dL RDW (11.5-15.5) % Plt Count (150-450) k/uL MPV Neutrophils % % Lymphocytes % % Monocytes % % Eosinophils % % Basophils % % Neutrophils # (1.3-7.7) k/uL Lymphocytes # (1.0-4.8) k/uL Monocytes # (0-1.0) k/uL Eosinophils # (0-0.7) k/uL Basophils # (0-0.2) k/uL Manual Slide Review RBC Morphology PT (9.0-12.0) sec INR (<1.2) APTT (22.0-30.0) sec Sample Site ABG pH (7.35-7.45) ABG pCO2 (35-45) mmHg ABG pO2 (83-108) mmHg ABG HCO3 (21-25) mmol/L ABG Total CO2 (19-24) mmol/L ABG O2 Saturation (94-97) % ABG Base Excess mmol/L Marcos Test FiO2 % Sodium 131 L (137-145) mmol/L Potassium 4.3 (3.5-5.1) mmol/L Chloride 95 L (98-107) mmol/L Carbon Dioxide 23 (22-30) mmol/L Anion Gap 13 mmol/L BUN 5 L (9-20) mg/dL Creatinine 0.42 L (0.66-1.25) mg/dL Est GFR (CKD-EPI)AfAm >90 (>60 ml/min/1.73 sqM) Est GFR (CKD-EPI)NonAf >90 (>60 ml/min/1.73 sqM) Glucose 87 (74-99) mg/dL POC Glucose (mg/dL) (75-99) mg/dL POC Glu Commercial Or Institutional Cleaner ID Plasma Lactic Acid Turner 1.0 (0.7-2.0) mmol/L Calcium 9.0 (8.4-10.2) mg/dL Ionized Calcium Emmanuel 4.7 (4.5-5.3) mg/dL Magnesium 2.0 (1.6-2.3) mg/dL Total Bilirubin 0.7 (0.2-1.3) mg/dL AST 44 (17-59) U/L ALT 23 (4-49) U/L Alkaline Phosphatase 86 (38-126) U/L Ammonia 17 (<30) umol/L Creatine Kinase 230 H (55-170) U/L Troponin I <0.012 (0.000-0.034) ng/mL C-Reactive Protein 0.7 (<1.0) mg/dL Total Protein 7.8 (6.3-8.2) g/dL Albumin 4.6 (3.5-5.0) g/dL TSH 2.350 (0.465-4.680) mIU/L Urine Color Urine Appearance (Clear) Urine pH (5.0-8.0) Ur Specific [place] (1.001-1.035) Urine Protein (Negative) Urine Glucose (UA) (Negative) Urine Ketones (Negative) Urine Blood (Negative) Urine Nitrite (Negative) Urine Bilirubin (Negative) Urine Urobilinogen (<2.0) mg/dL Ur Leukocyte Esterase (Negative) Urine RBC (0-5) /hpf Urine WBC (0-5) /hpf Ur Squamous Epith Cells (0-4) /hpf Urine Bacteria (None) /hpf Hyaline Casts (0-2) /lpf Granular Casts (0) /lpf Urine Mucus (None) /hpf Salicylates <1.0 mg/dL Urine Opiates Screen (NotDetected) Ur Oxycodone Screen (NotDetected) Urine Methadone Screen (NotDetected) Ur Propoxyphene Screen (NotDetected) Acetaminophen <10.0 ug/mL Ur Barbiturates Screen (NotDetected) U Tricyclic Antidepress (NotDetected) Ur Phencyclidine Scrn (NotDetected) Ur Amphetamines Screen (NotDetected) U Methamphetamines Scrn (NotDetected) U Benzodiazepines Scrn (NotDetected) Urine Cocaine Screen (NotDetected) U Marijuana (THC) Screen (NotDetected) Serum Alcohol <10 mg/dL Influenza Type A (PCR) (Not Detectd) Influenza Type B (PCR) (Not Detectd) RSV (PCR) (Not Detectd) SARS-CoV-2 (PCR) (Not Detectd) 02/08/21 02/08/21 02/08/21 Range/Units 11:25 11:25 12:09 WBC (3.8-10.6) k/uL RBC (4.30-5.90) m/uL Hgb (13.0-17.5) gm/dL Hct (39.0-53.0) % MCV (80.0-100.0) fL MCH (25.0-35.0) pg MCHC (31.0-37.0) g/dL RDW (11.5-15.5) % Plt Count (150-450) k/uL MPV Neutrophils % % Lymphocytes % % Monocytes % % Eosinophils % % Basophils % % Neutrophils # (1.3-7.7) k/uL Lymphocytes # (1.0-4.8) k/uL Monocytes # (0-1.0) k/uL Eosinophils # (0-0.7) k/uL Basophils # (0-0.2) k/uL Manual Slide Review RBC Morphology PT (9.0-12.0) sec INR (<1.2) APTT (22.0-30.0) sec Sample Site rrad ABG pH 7.32 L (7.35-7.45) ABG pCO2 48 H (35-45) mmHg ABG pO2 205 H (83-108) mmHg ABG HCO3 24 (21-25) mmol/L ABG Total CO2 26 H (19-24) mmol/L ABG O2 Saturation 99.0 H (94-97) % ABG Base Excess -1.8 mmol/L Marcos Test yes FiO2 100 % Sodium (137-145) mmol/L Potassium (3.5-5.1) mmol/L Chloride (98-107) mmol/L Carbon Dioxide (22-30) mmol/L Anion Gap mmol/L BUN (9-20) mg/dL Creatinine (0.66-1.25) mg/dL Est GFR (CKD-EPI)AfAm (>60 ml/min/1.73 sqM) Est GFR (CKD-EPI)NonAf (>60 ml/min/1.73 sqM) Glucose (74-99) mg/dL POC Glucose (mg/dL) (75-99) mg/dL POC Glu Commercial Or Institutional Cleaner ID Plasma Lactic Acid Turner (0.7-2.0) mmol/L Calcium (8.4-10.2) mg/dL Ionized Calcium Emmanuel (4.5-5.3) mg/dL Magnesium (1.6-2.3) mg/dL Total Bilirubin (0.2-1.3) mg/dL AST (17-59) U/L ALT (4-49) U/L Alkaline Phosphatase (38-126) U/L Ammonia (<30) umol/L Creatine Kinase (55-170) U/L Troponin I (0.000-0.034) ng/mL C-Reactive Protein (<1.0) mg/dL Total Protein (6.3-8.2) g/dL Albumin (3.5-5.0) g/dL TSH (0.465-4.680) mIU/L Urine Color Light Yellow Urine Appearance Clear (Clear) Urine pH 6.0 (5.0-8.0) Ur Specific [place] 1.010 (1.001-1.035) Urine Protein Trace H (Negative) Urine Glucose (UA) Negative (Negative) Urine Ketones 1+ H (Negative) Urine Blood Trace H (Negative) Urine Nitrite Negative (Negative) Urine Bilirubin Negative (Negative) Urine Urobilinogen <2.0 (<2.0) mg/dL Ur Leukocyte Esterase Negative (Negative) Urine RBC 1 (0-5) /hpf Urine WBC <1 (0-5) /hpf Ur Squamous Epith Cells <1 (0-4) /hpf Urine Bacteria Rare H (None) /hpf Hyaline Casts 5 H (0-2) /lpf Granular Casts 4 (0) /lpf Urine Mucus Rare H (None) /hpf Salicylates mg/dL Urine Opiates Screen Not Detected (NotDetected) Ur Oxycodone Screen Not Detected (NotDetected) Urine Methadone Screen Not Detected (NotDetected) Ur Propoxyphene Screen Not Detected (NotDetected) Acetaminophen ug/mL Ur Barbiturates Screen Not Detected (NotDetected) U Tricyclic Antidepress Not Detected (NotDetected) Ur Phencyclidine Scrn Not Detected (NotDetected) Ur Amphetamines Screen Not Detected (NotDetected) U Methamphetamines Scrn Not Detected (NotDetected) U Benzodiazepines Scrn Not Detected (NotDetected) Urine Cocaine Screen Not Detected (NotDetected) U Marijuana (THC) Screen Not Detected (NotDetected) Serum Alcohol mg/dL Influenza Type A (PCR) Not Detected (Not Detectd) Influenza Type B (PCR) Not Detected (Not Detectd) RSV (PCR) Not Detected (Not Detectd) SARS-CoV-2 (PCR) Not Detected (Not Detectd) Critical Care Time Critical Care Time: Yes Total Critical Care Time: 33 Disposition Clinical Impression: Altered mental status Disposition: ADMITTED IP TO THIS [facility] Condition: Critical Referrals: Alina Campos MD [Primary Care Provider] - 1-2 days
[2021-02-08 11:39] LABS: Appearance,Urine Clear (Clear); Bacteria,Urine Rare /hpf; Bilirubin,Urine Negative (Negative); Blood,Urine Trace (Negative); Color,Urine Light Yellow; Glucose,Urine (UA) Negative (Negative); Granular Casts,Urine 4 /lpf (0); Hyaline Casts,Urine 5 /lpf (0-2); Ketones,Urine 1+ (Negative); Leukocyte Esterase,Urine Negative (Negative); Mucus,Urine Rare /hpf; Nitrite,Urine Negative (Negative); Protein,Urine Trace (Negative); RBC,Urine 1 /hpf (0-5); Squamous Epithelial Cell,Urine <1 /hpf (0-4); Urobilinogen,Urine <2.0 mg/dL (<2.0); WBC,Urine <1 /hpf (0-5)
[2021-02-08 11:40] LABS: Ionized Calcium 4.7 mg/dL (4.5-5.3)
--- NOTE | 2021-02-08 11:44 | XR ---
EXAMINATION TYPE: XR chest 1V portable DATE OF EXAM: 02/08/2021 COMPARISON: 09/20/2020 HISTORY: Altered mental status, fatigue TECHNIQUE: Single frontal view of the chest is obtained. FINDINGS: Lines and tubes are unchanged. There is new right basilar airspace disease. Left lung is grossly clear. Cardiomediastinal silhouette is unchanged. IMPRESSION: New right basilar airspace disease.
[2021-02-08 11:51] LABS: Basophils % (A) 1 %; Eosinophils # (A) 0.1 k/uL (0-0.7); Eosinophils % (A) 1 %; HCT 42.8 % (39.0-53.0); HGB 14.8 gm/dL (13.0-17.5); Lymphocytes # (A) 0.6 k/uL (1.0-4.8); Lymphocytes % (A) 8 %; MCH 32.9 pg (25.0-35.0); MCHC 34.6 g/dL (31.0-37.0); MCV 94.9 fL (80.0-100.0); Mean Platelet Volume 9.3; Monocytes # (A) 0.5 k/uL (0-1.0); Monocytes % (A) 6 %; Neutrophils # (A) 6.4 k/uL (1.3-7.7); Neutrophils % (A) 82 %; RBC 4.51 m/uL (4.30-5.90); RDW 12.8 % (11.5-15.5); WBC 7.7 k/uL (3.8-10.6)
[2021-02-08 11:52] LABS: ALT 23 U/L (4-49); AST 44 U/L (17-59); Acetaminophen <10.0 ug/mL; African American GFR (CKD) >90 (>60 ml/min/1.73 sqM); Albumin 4.6 g/dL (3.5-5.0); Alcohol <10 mg/dL; Alkaline Phosphatase 86 U/L (38-126); Anion Gap 13 mmol/L; Blood Urea Nitrogen 5 mg/dL (9-20); C Reactive Protein 0.7 mg/dL (<1.0); Carbon Dioxide 23 mmol/L (22-30); Chloride 95 mmol/L (98-107); Creatine Kinase 230 U/L (55-170); Glucose 87 mg/dL (74-99); Non-African American GFR(CKD) >90 (>60 ml/min/1.73 sqM); Potassium 4.3 mmol/L (3.5-5.1); Salicylate <1.0 mg/dL; Sodium 131 mmol/L (137-145); Total Bilirubin 0.7 mg/dL (0.2-1.3); Total Protein 7.8 g/dL (6.3-8.2)
[2021-02-08 11:55] LABS: Amphetamine Screen,Urine Not Detected (NotDetected); Barbiturate Screen,Urine Not Detected (NotDetected); Benzodiazepines Screen,Urine Not Detected (NotDetected); Cocaine Screen,Urine Not Detected (NotDetected); Methadone Screen, Urine Not Detected (NotDetected); Opiate Screen,Urine Not Detected (NotDetected); Oxycodone Screen, Urine Not Detected (NotDetected); Phencyclidine Screen,Urine Not Detected (NotDetected); Tricyclic Antidepressant,Urine Not Detected (NotDetected); Urn Cannabinoid Scrn Not Detected (NotDetected)
[2021-02-08 11:57] LABS: Partial Thromboplastin Time 24.7 sec (22.0-30.0); Prothrombin Time 10.7 sec (9.0-12.0)
[2021-02-08 12:12] LABS: ABG Base Excess -1.8 mmol/L; ABG HCO3 24 mmol/L (21-25); ABG PCO2 48 mmHg (35-45); ABG PH 7.32 (7.35-7.45); ABG PO2 205 mmHg (83-108); ABG TCO2 26 mmol/L (19-24)
[2021-02-08 12:16] LABS: Allen Test Performed? yes
[2021-02-08] MEDS ORDERED: CEFEPIME 2 GM in SODIUM CHLORIDE 0.9% 100 ML IVPB STA (12:22)
[2021-02-08] MEDS ORDERED: VANCOMYCIN IV PER PHARMACY 1 EACH MISC MISCELLANE PRN (12:22)
[2021-02-08] MEDS ORDERED: VANCOMYCIN 1,000 MG in SODIUM CHLORIDE 0.9% 250 ML IVPB STA (12:26)
--- NOTE | 2021-02-08 12:26 | CT ---
EXAMINATION TYPE: CT brain zee de jesus con DATE OF EXAM: 02/08/2021 COMPARISON: 07/30/2020 HISTORY: 60-year-old male obtunded, unresponsive CT DLP: 1320.8 mGycm Automated exposure control for dose reduction was used. Technique: Examination of the head was done in axial plane without intravenous contrast. Coronal and sagittal reconstructions performed. CT of the cervical spine was obtained in axial plane without intravenous injection of contrast mater ial. Coronal and sagittal reformatted images were obtained from the axial views for evaluation of f ractures, spinal alignment and canal. FINDINGS: Head: There is no evidence of acute intracranial hemorrhage, acute ischemic changes, mass, mass-effect, or extra-axial fluid collection. There is no effacement of cerebral sulci or basal subarachnoid cister ns. There is no hydrocephalus. There is no midline shift. Joya-white matter distinction is preserv ed. Mild bifrontal cerebral cortical volume loss. Mild subinsular white matter hypodensities suggesting m ild burden of chronic small vessel ischemic disease. There may be some mild scalp swelling along the posterior vertex. No underlying calvarial fracture. Abdomen scattered calcifications within the carot id siphons. Slight leftward nasal septal deviation. Scattered mild thickening throughout the paranasal sinuses. M astoid air cells are well pneumatized. Visualized orbits and globes are intact. Cervical spine: Tracheostomy is present. At least moderate emphysema. There is some nodularity along the posterior as pect of the right vocal fold measuring 7 mm. No craniocervical junction abnormalities, predental space widening, or prevertebral soft tissue swell ing. Degenerative changes of the C1 dens articulation. Reversal of the normal cervical lordosis centered at C5 secondary to severe hypertrophic facet and un covertebral joint arthropathy. Grade 2 anterolisthesis C4-C5. Grade 1 retrolisthesis C6-C7 grade 1 an terolisthesis C7-T1. Moderate degenerative disc disease C5-C6 and C6-C7. No acute fracture identified of the cervical spine. Changes result in severe right and moderate left neural foraminal stenosis at C3-C4, severe left C4-C 5, moderate right greater than left C6/C7. Sagittal and coronal reformatted images confirm above findings. COMBINED IMPRESSION: 1. There may be a mild scalp contusion along the posterior vertex. No calvarial fracture. No acute in tracranial abnormality seen. 2. No acute fracture of the cervical spine. Similar moderate to advanced spondylotic change with a de generative grade 2 anterolisthesis at C4-C5 and reversal of the cervical lordosis. 3. Tracheostomy cannula. 7 mm nodularity along the posterior aspect of the right vocal fold. This cou ld represent adherent mucus/debris. Direct visualization when patient able to exclude a mucosal lesio n.
[2021-02-08 12:37] LABS: Platelet Count 36 k/uL (150-450)
[2021-02-08] MEDS ORDERED: NALOXONE 0.4 MG/ML 1 ML VIAL IV PRN (13:19)
[2021-02-08] MEDS ORDERED: ACETAMINOPHEN SUPPOSITORY 650 MG SUPP RECTAL PRN (13:19)
[2021-02-08] MEDS: SODIUM CHLORIDE 0.9% 1,000 ML IV SCH (13:41)
[2021-02-08 15:17] LABS: Glucose,Whole Blood 79 mg/dL (75-99)
[2021-02-08] MEDS ORDERED: LORazepam 2 MG/ML INJ IV STA (15:29)
[2021-02-08] MEDS: propofoL 100 ML IV ONE ×2 (16:02→16:11)
--- NOTE | 2021-02-08 16:12 | P.CNPUL ---
History of Present Illness Consult date: 02/08/21 Requesting physician: Surjit Crespo Reason for consult: other Chief complaint: Unresponsiveness, altered mental status History of present illness: This is a 60-year-old with history of squamous cell carcinoma of the tongue status post tracheostomy tube placement, and the PEG tube insertion to secure the airway and provide enteral feedings for nutritional support. 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 His other medical history significant for COPD, seizure disorder, history of depression, history of falls, with right hip fracture and a surgical repair, and patient has multiple lung nodules that are being followed on an outpatient basis by Dr. Diaz since July 2020. Most recent computed tomography scan of the chest from all 12/18/2020 showed near complete resolution of the nodularity in the right lower lobe suggesting inflammatory rather than malignant abnormalities. Patient has a chronic tracheostomy tube in place, with an uncuffed #6 fenestrated trach, and patient is not usually on supplemental oxygen according to his . Patient is strict nothing by mouth at home according to the . He does have history of seizure disorder normally takes Lacosamide 50 mg twice a day per the PEG tube, in addition patient takes Ativan 1 mg daily as needed for anxiety, and Neurontin 300 mg 3 times a day. On 02/08/2021 patient was found unresponsive by his . She wasn't sure if patient had fallen or if he had a seizure although she denied witnessing a seizure. In the ER EMS reported normal blood sugars and normal vitals. Patient did have poor respiratory effort he required to be airbag by EMS en route to the emergency department. Patient was afebrile on arrival, his oxygen saturation was 86%, his respiratory effort was poor. His uncuffed tracheostomy tube was changed for a coughed tracheostomy tube, and patient was placed on ventilator support. EEG showed normal sinus rhythm with a rate of 92 BPM with no acute ST or T-wave changes. Was QT prolongation noted. CBC was unremarkable, his platelet count was low at 36,000 however patient does have a history of thrombocytopenia, no leukocytosis, quite panel was negative, metabolic panel showed mild hyponatremia with a serum sodium of 131, no evidence of urinary tract infection, urinalysis was negative, drug screen was negative, tox labs were negative, alvarez virus PCR was negative, influenza and RSV and rotavirus were all negative, CT of the brain and C-spine showed no acute process, chest x-ray showed right basilar airspace disease, patient was started on broad-spectrum antibiotic. Blood cultures have been sent. Patient's blood gas showed pO2 of 205, pCO2 40, pH of 7.32 this was done on FiO2 100%, and FiO2 has since been dropped down to 50%. Antibiotics in the form of cefepime and vancomycin were started, patient was given a total of 1 L and fluid boluses, and his maintenance IV fluids are infusing at a rate of 130 ML per hour. Neurology consultation has been requested, EEG is pending. Patient has been admitted to the intensive care unit where he woke up, he is strict to the ventilator, currently on assist control mode of ventilation with a rate of 12, tidal volume is 400, FiO2 50% and PEEP of 5. He is very agitated, was given 2 mg of IV Ativan, and he will be started on IV sedation, he is not following commands, however he is moving all 4 extremities. Review of Systems All systems: negative Constitutional: Denies chills, Denies fever Eyes: denies blurred vision, denies pain Ears, nose, mouth and throat: Denies headache, Denies sore throat Cardiovascular: Denies chest pain, Denies shortness of breath Respiratory: Reports respiratory infections, Denies cough Gastrointestinal: Denies abdominal pain, Denies diarrhea, Denies nausea, Denies vomiting Musculoskeletal: Denies myalgias Integumentary: Denies pruritus, Denies rash Neurological: Reports change in mentation, Denies numbness, Denies weakness Psychiatric: Denies anxiety, Denies depression Endocrine: Denies fatigue, Denies weight change Past Medical History Past Medical History: Cancer, COPD, GERD/Reflux, Myocardial Infarction ([place]), Pneumonia, Seizure Disorder Additional Past Medical History / Comment(s): 07/30/20 fall with impacted R hip fracture/tracheal bronchitis, hemoptysis, pulmonary nodules. 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 Last Myocardial Infarction Date:: 2014 History of Any Multi-Drug Resistant Organisms: None Reported Past Surgical History: Heart Catheterization Additional Past Surgical History / Comment(s): Oral surgery with resection floor of mouth/tongue/mandible and bilateral neck resection with skin graft taken from L upper arm at [facility], tracheostomy, peg tube Past Anesthesia/Blood Transfusion Reactions: No Reported Reaction Additional Past Anesthesia/Blood Transfusion Reaction / Comment(s): adopted - no family hx Past Psychological History: Anxiety, Depression Smoking Status: Current every day smoker - Past Family History Mother Family Medical History: Unable to Obtain Additional Family Medical History / Comment(s): pt is adopted Medications and Allergies Home Medications Medication Instructions Recorded Confirmed Type LORazepam [Ativan] 1 mg PEG/G-TUBE DAILY PRN 07/18/17 02/08/21 History Gabapentin [Neurontin] 300 mg PEG/G-TUBE TID 02/28/20 02/08/21 History Baclofen [Lioresal] 20 mg PEG/G-TUBE TID 05/05/20 02/08/21 History Lacosamide [Vimpat] 50 mg PEG/G-TUBE BID #60 tablet 08/05/20 02/08/21 Rx Cyanocobalamin [Vitamin B-12] 500 mcg PEG/G-TUBE DAILY 09/15/20 02/08/21 History Famotidine [Pepcid] 20 mg PEG/G-TUBE BID 09/15/20 02/08/21 History Midodrine [ProAmatine] 5 mg PEG/G-TUBE BID 09/15/20 02/08/21 History Sodium Chloride Tab 1 gm PEG/G-TUBE DAILY 09/15/20 02/08/21 History Thiamine [Vitamin B-1] 100 mg PEG/G-TUBE DAILY 09/15/20 02/08/21 History Aspirin EC [Ecotrin Low Dose] 81 mg PEG/G-TUBE DAILY 02/08/21 02/08/21 History Ipratropium-Albuterol Nebulize 3 ml INHALATION RT-TID PRN 02/08/21 02/08/21 History [Duoneb 0.5 mg-3 mg/3 ml Soln] Allergies Allergy/AdvReac Type Severity Reaction Status Date / Time No Known Allergies Allergy Verified 02/08/21 13:15 Physical Exam Vitals: Vital Signs Temp Pulse Resp BP Pulse Ox 02/08/21 14:30 96.8 F L 90 12 106/81 98 02/08/21 14:25 96.6 F L 02/08/21 13:37 95.7 F L 85 12 92/73 99 02/08/21 12:46 95.4 F L 84 12 104/79 97 02/08/21 12:13 95.2 F L 81 14 116/82 100 02/08/21 12:04 95.0 F L 80 14 116/82 95 02/08/21 11:37 80 12 116/84 97 02/08/21 11:28 86 12 103/79 94 L 02/08/21 11:26 95.9 F L 02/08/21 11:00 12 02/08/21 10:52 97 F L 102 H 12 115/85 86 L Intake and Output 02/08/21 02/08/21 02/08/21 06:59 14:59 22:59 Output Total 1300 Balance -1300 Output: Urine 1300 Uretheral ([place]) 1300 Other: Weight 45.359 kg GENERAL EXAM: Alert, agitated, not following commands, 60-year-old cachectic looking white male, with a midline tracheostomy the patient is connected to the ventilator, with assist control mode of ventilation with FiO2 50% and PEEP of 5 HEAD: Normocephalic/atraumatic. EYES: Normal reaction of pupils, equal size. Conjunctiva pink, sclera white. NOSE: Clear with pink turbinates. THROAT: No erythema or exudates. NECK: No masses, no JVD, no thyroid enlargement, no adenopathy. CHEST: No chest wall deformity. Symmetrical expansion. LUNGS: Equal air entry with no crackles, wheeze, rhonchi or dullness. CVS: Regular rate and rhythm, normal S1 and S2, no gallops, no murmurs, no rubs ABDOMEN: Soft, nontender. No hepatosplenomegaly, normal bowel sounds, no guarding or rigidity. PEG tube in place, tube feedings have not been yet started EXTREMITIES: No clubbing, no edema, no cyanosis, 2+ pulses and upper and lower extremities. MUSCULOSKELETAL: Muscle strength and tone normal. SPINE: No scoliosis or deformity SKIN: No rashes CENTRAL NERVOUS SYSTEM: Alert, but agitated. No focal deficits, tone is normal in all 4 extremities. Results - Laboratory Findings CBC and BMP: 02/08/21 11:16 02/08/21 11:16 ABG ABG pH 7.32 (7.35-7.45) L 02/08/21 12:09 ABG pCO2 48 mmHg (35-45) H 02/08/21 12:09 ABG pO2 205 mmHg (83-108) H 02/08/21 12:09 ABG O2 Saturation 99.0 % (94-97) H 02/08/21 12:09 PT/INR, D-dimer PT 10.7 sec (9.0-12.0) 02/08/21 11:16 INR 1.0 (<1.2) 02/08/21 11:16 Abnormal lab findings: Abnormal Labs 02/08/21 02/08/21 02/08/21 10:55 11:16 11:16 Plt Count 36 L Lymphocytes # 0.6 L ABG pH ABG pCO2 ABG pO2 ABG Total CO2 ABG O2 Saturation Sodium 131 L Chloride 95 L BUN 5 L Creatinine 0.42 L POC Glucose (mg/dL) 105 H Creatine Kinase 230 H Urine Protein Urine Ketones Urine Blood Urine Bacteria Hyaline Casts Urine Mucus 02/08/21 02/08/21 11:25 12:09 Plt Count Lymphocytes # ABG pH 7.32 L ABG pCO2 48 H ABG pO2 205 H ABG Total CO2 26 H ABG O2 Saturation 99.0 H Sodium Chloride BUN Creatinine POC Glucose (mg/dL) Creatine Kinase Urine Protein Trace H Urine Ketones 1+ H Urine Blood Trace H Urine Bacteria Rare H Hyaline Casts 5 H Urine Mucus Rare H - Diagnostic Findings Chest x-ray: report reviewed, image reviewed Assessment and Plan Plan: Assessment: #1. Acute hypoxic respiratory failure related to possibility of right basilar pneumonia, rule out possibility of aspiration, COVID-19, RSV, influenza screen were negative. Patient required placement on mechanical ventilator support, patient has a history of chronic tracheostomy tube, came in with a #6 uncuffed fenestrated tracheostomy tube was treated with switched to a cuffed #6 Sh[place] tracheostomy tube today on 02/08/2021 in the emergency department #2. Altered mental status likely related to pneumonia with possibility of sepsis, neurology is following, brain CT and cervical spine showed no acute findings #3. Thrombocytopenia, chronic, a component of underlying sepsis is also being considered #4. History of squamous cell carcinoma of the tongue, with history of surgical resection and reconstruction of oral cavity, and placement of tracheostomy and PEG tube to secure the airway #5. Multiple pulmonary nodules that are almost completely resolved on most recent computed tomography scan from 12/18/2020. This has been followed in the outpatient basis since July 2020 #6. History of COPD, with questionable ongoing history of smoking #7. Chronic dysphasia, patient is nothing by mouth, receives PEG tube feedings #8. Seizure disorder #9. History of right hip fracture with history of right hip hemiarthroplasty #10. Depression #11. History of GERD/reflux #12. History of myocardial infarction Plan: Continue broad-spectrum antibiotics for now Blood cultures have been sent Will send a pro-calcitonin level Patient did wake up however was extremely agitated not following command He will placed on propofol and will remain on mechanical ventilator support overnight EEG is pending, neurologic evaluation is underway Follow-up blood work in the morning, follow-up chest x-ray Will await the patient up to assess his mental status in the morning GI and DVT prophylaxis, SCDs Dietary evaluation for tube feed recommendations Blood sugar monitoring We'll continue to closely follow in the intensive care unit I performed a history & physical examination of the patient and discussed their management with my nurse practitioner, Chely Felix. I reviewed the nurse practitioner's note and agree with the documented findings and plan of care. Lung sounds are positive for diminished breath sounds. The findings and the impression was discussed with the patient. I attest to the documentation by the nurse practitioner. Time with Patient: Greater than 30
[2021-02-08] MEDS ORDERED: LACOSAMIDE IV 100 MG in SODIUM CHLORIDE 0.9% 50 ML IVPB STA (16:29)
--- NOTE | 2021-02-08 16:35 | P.CNNES ---
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 According to the patient's he was last normal at 3:00AM and then around 10am he was found on the floor. She denies noticing any jerking of any extremities, foaming around the mouth. The seems a poor historian. She stated he continues to drink alcohol and last drink was last night but could not tell me. She stated he has history of alcohol withdrawl seizure and no seizure besides alcohol. He is on Vimpat but could not tell me dose. She stated he is compliant with his medication. Patient has not followed up with a neurologist as an outpatient. Per the patient's he uses a walker to get around. He talks but he slurs his speech as a result of the PEG tube and that oral cancer. She could not tell me how much she drinks alcohol. He smokes about 3 cords of a pack a day and he spoken for years. As well as he's been drinking for years. In the ER per the nurse she was unresponsive. Upon the patient being transferred to the ICU I was immediately in the room and was having startling episodes. His home medication is aspirin 81, vitamin B12 500 g daily, Vimpat 50 mg 1 tablet twice a day, gabapentin throughout Imodium 1 tablet 3 times a day, Pepcid 20 mg 1 tablet twice a day, baclofen 20 mg 1 tablet 3 times a day, sodium tab 1 g daily and Midodrine 5 mg 1 tablet twice a day. Of note I personally seen the patient once on the 07/31/2020 for request to discontinue valproic acid due to possible SIADH. At that time he was taken valproic acid 500 mg every 12 hours. His sodium and at that time was 121 and the repeated was 119. He was on Depakote the per the on the previous the notes she notified me that she thinks she is on it for mood stabilizing. And he had the right hip fracture from a fall. Dr. Sutton saw him last on 08/04/2021 and recommended the MRI of the cervical spine to be done whenever the patient was the stable. At that time the Depakote was stopped and the patient was started on Vimpat 50 mg 1 tablet twice a day. His hemoglobin A1c was 5.1, vitamin B-12 of 506 and regular blood cell folate is normal. Some of the workup in the hospital consisted of: Initial vital signs: Blood pressure is 115/85, heart rate of 102, temperature of 97 Fahrenheit axillary, history of falls and pulse ox of 86 L on BVM. His core temp is 95.[address] of the head is reported as that there may be mild scalp contusion along the posterior vertex. No Variable fracture. No acute intracranial abnormality seen. CT cervical spine was reported as no acute fracture of the cervical spine. Similar moderate to advanced spondylosis change with a degenerative grade 2 enterolithiasis at C4-C5 and reversal of the cervical lordosis. Tracheostomy cannula. 7 mm nodularity along the posterior aspect of the right vocal cord. This could represent adherent mucous debris. Direct visualization when patient able to exclude a mucosal lesion. EKG is reported as on determined rhythm. Low voltage QRS. Inferior infarct, age undetermined. Prolonged QT. Abnormal EKG. White blood cell is 7.7, MCV is 94.9, hemoglobin is 14.8 and hematocrit of 42.8 which are all within normal limits. Platelet is 36K and in 08/2020 it was as low as 21K. Sodium is 131 which is low (but improved compared 07/2020 which was as low as 118). POC glucose is 105. Creatinine is 0.42, AST of 44 and ALT is 23, ammonia is 17, TSH is 2.350 which are all within normal limits. Calcium is 9.0 and ionized the calcium is 4.7, magnesium is 2.0 and these are within normal limits. CK level was 2:30 which is slightly elevated but not drastically. Review of Systems Review of system is limited but the parent positive and negative as per HPI. Past Medical History Past Medical History: Cancer, COPD, GERD/Reflux, Myocardial Infarction ([place]), Pneumonia, Seizure Disorder Additional Past Medical History / Comment(s): 07/30/20 fall with impacted R hip fracture/tracheal bronchitis, hemoptysis, pulmonary nodules. Other hx: 2016 Squamous cell carcinoma of the oral cavity with surgery/chemoradia tion,dysphagia, has trach and peg tube, upper GI bleed, thrombocytopenia, hyponatremia, chronic hypotension, seizure from alcohol withdrawal several years ago, L arm neuropathy, sacral decubitus, chronic back pain. Last Myocardial Infarction Date:: 2014 History of Any Multi-Drug Resistant Organisms: None Reported Past Surgical History: Heart Catheterization Additional Past Surgical History / Comment(s): Oral surgery with resection floor of mouth/tongue/mandible and bilateral neck resection with skin graft taken from L upper arm at [facility], tracheostomy, peg tube Past Anesthesia/Blood Transfusion Reactions: No Reported Reaction Additional Past Anesthesia/Blood Transfusion Reaction / Comment(s): adopted - no family hx Past Psychological History: Anxiety, Depression Smoking Status: Current every day smoker - Past Family History Mother Family Medical History: Unable to Obtain Additional Family Medical History / Comment(s): pt is adopted Medications and Allergies Home Medications Medication Instructions Recorded Confirmed Type LORazepam [Ativan] 1 mg PEG/G-TUBE DAILY PRN 07/18/17 02/08/21 History Gabapentin [Neurontin] 300 mg PEG/G-TUBE TID 02/28/20 02/08/21 History Baclofen [Lioresal] 20 mg PEG/G-TUBE TID 05/05/20 02/08/21 History Lacosamide [Vimpat] 50 mg PEG/G-TUBE BID #60 tablet 08/05/20 02/08/21 Rx Cyanocobalamin [Vitamin B-12] 500 mcg PEG/G-TUBE DAILY 09/15/20 02/08/21 History Famotidine [Pepcid] 20 mg PEG/G-TUBE BID 09/15/20 02/08/21 History Midodrine [ProAmatine] 5 mg PEG/G-TUBE BID 09/15/20 02/08/21 History Sodium Chloride Tab 1 gm PEG/G-TUBE DAILY 09/15/20 02/08/21 History Thiamine [Vitamin B-1] 100 mg PEG/G-TUBE DAILY 09/15/20 02/08/21 History Aspirin EC [Ecotrin Low Dose] 81 mg PEG/G-TUBE DAILY 02/08/21 02/08/21 History Ipratropium-Albuterol Nebulize 3 ml INHALATION RT-TID PRN 02/08/21 02/08/21 History [Duoneb 0.5 mg-3 mg/3 ml Soln] Allergies Allergy/AdvReac Type Severity Reaction Status Date / Time No Known Allergies Allergy Verified 02/08/21 13:15 Physical Examination - Vital Signs Vital Signs: Vital Signs Temp Pulse Resp BP Pulse Ox 02/08/21 14:30 96.8 F L 90 12 106/81 98 02/08/21 14:25 96.6 F L 02/08/21 13:37 95.7 F L 85 12 92/73 99 02/08/21 12:46 95.4 F L 84 12 104/79 97 02/08/21 12:13 95.2 F L 81 14 116/82 100 02/08/21 12:04 95.0 F L 80 14 116/82 95 02/08/21 11:37 80 12 116/84 97 02/08/21 11:28 86 12 103/79 94 L 02/08/21 11:26 95.9 F L 02/08/21 11:00 12 02/08/21 10:52 97 F L 102 H 12 115/85 86 L Intake and Output 02/08/21 02/08/21 02/08/21 06:59 14:59 22:59 Output Total 1300 Balance -1300 Output: Urine 1300 Uretheral ([place]) 1300 Other: Weight 45.359 kg GENERAL: The patient is lying in bed and seems in distress. Having recurrent startle episode then would go back to be and this was recurrent. CHEST: The heart rate is regular rate rhythm. No murmurs to auscultation. LUNG: Clear to auscultation bilaterally no wheezing noted throughout. Not labored breathing. Has trach. ABDOMEN/GI: Bowel sounds present in all 4 quadrants. No tenderness to palpation throughout. NEUROLOGICAL: Higher mental function: The patient is having repeated startle episode, where he would would wake up and sit up from lying to sitting position and look around then would lie back again and sleep. He is not verbally responsive or following commands. Cranial nerves: The pupils are round, equal and reactive to light (5mm-->2mm bilaterally). Visual carrillo are hard to assess but seem full to threat throughout. Primary gaze is midline and tracking. The facial strength is there is no abnormality seen bilaterally. Could not assess the rest of the cranial nerves because of his condition. Motor: Gait is deferred because of his condition. The strength is moving all extremities above graivty without obvious focality at this time (moving uppers more than lowers). Seems he is catachetic throughout. Normal tone. No spontaneous movement noted. Cerebellum: Could not assess. Sensation: Could not assess. Reflexes (right/left): 1-2+ in uppers while lowers are 0-1+ . Plantars are mute bilaterally. Results Urine toxicology screen is nondetected. Sessile it's is less than 1.0, acetaminophen less than 10 and serum alcohol was less than 10. RSV, influenza A and B PCR as well as SARS Covid 2 are not detected. Coagulation study: PT of 10.7, INR 1.0 and PTT of 24.7. - Laboratory Findings CBC and BMP: 02/08/21 11:16 02/08/21 11:16 Abnormal Lab Findings: Abnormal Labs 02/08/21 02/08/21 02/08/21 10:55 11:16 11:16 Plt Count 36 L Lymphocytes # 0.6 L ABG pH ABG pCO2 ABG pO2 ABG Total CO2 ABG O2 Saturation Sodium 131 L Chloride 95 L BUN 5 L Creatinine 0.42 L POC Glucose (mg/dL) 105 H Creatine Kinase 230 H Urine Protein Urine Ketones Urine Blood Urine Bacteria Hyaline Casts Urine Mucus 02/08/21 02/08/21 11:25 12:09 Plt Count Lymphocytes # ABG pH 7.32 L ABG pCO2 48 H ABG pO2 205 H ABG Total CO2 26 H ABG O2 Saturation 99.0 H Sodium Chloride BUN Creatinine POC Glucose (mg/dL) Creatine Kinase Urine Protein Trace H Urine Ketones 1+ H Urine Blood Trace H Urine Bacteria Rare H Hyaline Casts 5 H Urine Mucus Rare H Assessment and Plan Assessment: * Episode of unresponsiveness with hypothermia. Unknown exact etiology. No leukocytosis, no fever and normal CRP, which seems unlikely meningoencephalitis. * History of alcohol withdrawal seizures * Cervical spondylosis moderate to severe over C4-C5. * Chronic hyponatremia 131. 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 No Variable fracture. No acute intracranial abnormality seen. * CT cervical spine was reported as no acute fracture of the cervical spine. Similar moderate to advanced spondylosis change with a degenerative grade 2 enterolithiasis at C4-C5 and reversal of the cervical lordosis. Tracheostomy cannula. 7 mm nodularity along the posterior aspect of the right vocal cord. This could represent adherent mucous debris. Direct visualization when patien t able to exclude a mucosal lesion. * Creatinine is 0.42, AST of 44 and ALT is 23, ammonia is 17, TSH is 2.350 which are all within normal limits. * EKG is reported as on determined rhythm. Low voltage QRS. Inferior infarct, age undetermined. Prolonged QT. Abnormal EKG. 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 * I ordered a STAT EEG. * I increased his home medication of Vimpat 50mg 1 tab bid to 100mg 1 tab bid (and down the line will assess modifying the medication). Loaded the patient with Vimpat 100mg once. Gave the patient 2mg ativan since was agitated in the ICU. * Started him on Thiamine 100mg IV then after 3 day will switch over to med via PEG. * Will defer the rest of medical management the ICU and primary team. * Recommend CIWA protocol and will defer managment to ICU and primary team. * The plan is discussed with the patient (Mag) who is at bedside and his nurse Thank you for the consultation. Cedric Mitchell MD Neuro-Hospitalist Time with Patient: Greater than 30
--- NOTE | 2021-02-08 17:21 | EEG ---
ELECTROENCEPHALOGRAM REPORT DATE OF SERVICE: 02/08/2021. CLINICAL HISTORY: This is a 60-year-old gentleman with history of alcohol withdrawal seizures, who presented to the emergency department after being found unresponsive. This video EEG is obtained to evaluate for seizure and epileptiform activity. RELEVANT MEDICATION: Vimpat as well as the patient received 2 mg of Ativan recently. EEG TYPE: This routine 21 channel EEG is performed with video using the 10/20 electrode placement system. DESCRIPTION: The patient has a trach and in a ventilator. During awake state, the background consist of 4-5 Hz activity. There is not physiological stage II sleep architecture. There is no focal slowing. Interictal and ictal are none. ACTIVATION PROCEDURE: Photic stimulation did not evoke a posterior driving response. There is no abnormality during photic stimulation. Hyperventilation is not performed. CLINICAL INTERPRETATION: This is an abnormal routine EEG. The generalized background slowing is consistent of moderate to severe encephalopathy. There are no focal slowing, epileptiform discharges or seizure on the EEG. The excessive fast activity is due to medication effect (Ativan). Clinical correlation is recommended. MTDD
--- NOTE | 2021-02-08 19:23 | P.CONS ---
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 Subsequently,he underwent adjuvant chemoradiation,with weekly cisplatin at [facility] radiation oncology in [place], [place] and chemotherapy with Dr Mccullough in [place],completed on 11/24/2016. He had repeat PET scan on 03/05/2017 which was negative for active disease. He has been on valproic acide since he had his head and neck surgery,he had remote history of seizure.no seizure in several years. U/S of abdomen on 07/26/2017 did not reveal any splenomegaly or liver abnormal ities. Bone marrow biopsy on 08/08/2017 was negative. He was put on tapering dose of prednisone end of November/2017 until early February/2018 and his platelets counts recovered and still up On 09/15/2018,CT scan did not reveal evidence of recurrent cancer. He feels okay,some fatigue,has his chronic dyspnea and dysphagia,depends on his PEG tube,he did not have his scheduled CT scan yet He was last seen in [address] Cardenas. He was suppose to have CT neck and chest at that time however did not show up for follow-up. He now presents after being found in respiratory distress. He was seen and evaluated in ICU, ET tube in place with bloody output. PLatelets ate 30K, chronically low. Discussed with Brissa fontana. Review of Systems ROS unobtainable: due to endotracheal tube All systems: negative Past Medical History Past Medical History: Cancer, COPD, GERD/Reflux, Myocardial Infarction ([place]), Pneumonia, Seizure Disorder Additional Past Medical History / Comment(s): 07/30/20 fall with impacted R hip fracture/tracheal bronchitis, hemoptysis, pulmonary nodules. 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 Last Myocardial Infarction Date:: 2014 History of Any Multi-Drug Resistant Organisms: None Reported Past Surgical History: Heart Catheterization Additional Past Surgical History / Comment(s): Oral surgery with resection floor of mouth/tongue/mandible and bilateral neck resection with skin graft taken from L upper arm at [facility], tracheostomy, peg tube Past Anesthesia/Blood Transfusion Reactions: No Reported Reaction Additional Past Anesthesia/Blood Transfusion Reaction / Comm: adopted - no family hx Past Psychological History: Anxiety, Depression Smoking Status: Current every day smoker - Past Family History Mother Family Medical History: Unable to Obtain Additional Family Medical History / Comment(s): pt is adopted Medications and Allergies Home Medications Medication Instructions Recorded Confirmed Type LORazepam [Ativan] 1 mg PEG/G-TUBE DAILY PRN 07/18/17 02/08/21 History Gabapentin [Neurontin] 300 mg PEG/G-TUBE TID 02/28/20 02/08/21 History Baclofen [Lioresal] 20 mg PEG/G-TUBE TID 05/05/20 02/08/21 History Lacosamide [Vimpat] 50 mg PEG/G-TUBE BID #60 tablet 08/05/20 02/08/21 Rx Cyanocobalamin [Vitamin B-12] 500 mcg PEG/G-TUBE DAILY 09/15/20 02/08/21 History Famotidine [Pepcid] 20 mg PEG/G-TUBE BID 09/15/20 02/08/21 History Midodrine [ProAmatine] 5 mg PEG/G-TUBE BID 09/15/20 02/08/21 History Sodium Chloride Tab 1 gm PEG/G-TUBE DAILY 09/15/20 02/08/21 History Thiamine [Vitamin B-1] 100 mg PEG/G-TUBE DAILY 09/15/20 02/08/21 History Aspirin EC [Ecotrin Low Dose] 81 mg PEG/G-TUBE DAILY 02/08/21 02/08/21 History Ipratropium-Albuterol Nebulize 3 ml INHALATION RT-TID PRN 02/08/21 02/08/21 History [Duoneb 0.5 mg-3 mg/3 ml Soln] Allergies Allergy/AdvReac Type Severity Reaction Status Date / Time No Known Allergies Allergy Verified 02/08/21 13:15 Physical Exam Vitals: Vital Signs Temp Pulse Resp BP Pulse Ox 02/08/21 14:30 96.8 F L 90 12 106/81 98 02/08/21 14:25 96.6 F L 02/08/21 13:37 95.7 F L 85 12 92/73 99 02/08/21 12:46 95.4 F L 84 12 104/79 97 02/08/21 12:13 95.2 F L 81 14 116/82 100 02/08/21 12:04 95.0 F L 80 14 116/82 95 02/08/21 11:37 80 12 116/84 97 02/08/21 11:28 86 12 103/79 94 L 02/08/21 11:26 95.9 F L 02/08/21 11:00 12 02/08/21 10:52 97 F L 102 H 12 115/85 86 L Intake and Output 02/08/21 02/08/21 02/08/21 06:59 14:59 22:59 Output Total 1300 Balance -1300 Output: Urine 1300 Uretheral ([place]) 1300 Other: Weight 45.359 kg Vented NAD Areas eccymosis Results CBC & Chem 7: 02/08/21 11:16 02/08/21 11:16 Labs: Abnormal Lab Results - Last 24 Hours (Table) 02/08/21 02/08/21 02/08/21 Range/Units 10:55 11:16 11:16 Plt Count 36 L (150-450) k/uL Lymphocytes # 0.6 L (1.0-4.8) k/uL ABG pH (7.35-7.45) ABG pCO2 (35-45) mmHg ABG pO2 (83-108) mmHg ABG Total CO2 (19-24) mmol/L ABG O2 Saturation (94-97) % Sodium 131 L (137-145) mmol/L Chloride 95 L (98-107) mmol/L BUN 5 L (9-20) mg/dL Creatinine 0.42 L (0.66-1.25) mg/dL POC Glucose (mg/dL) 105 H (75-99) mg/dL Creatine Kinase 230 H (55-170) U/L Urine Protein (Negative) Urine Ketones (Negative) Urine Blood (Negative) Urine Bacteria (None) /hpf Hyaline Casts (0-2) /lpf Urine Mucus (None) /hpf 02/08/21 02/08/21 Range/Units 11:25 12:09 Plt Count (150-450) k/uL Lymphocytes # (1.0-4.8) k/uL ABG pH 7.32 L (7.35-7.45) ABG pCO2 48 H (35-45) mmHg ABG pO2 205 H (83-108) mmHg ABG Total CO2 26 H (19-24) mmol/L ABG O2 Saturation 99.0 H (94-97) % Sodium (137-145) mmol/L Chloride (98-107) mmol/L BUN (9-20) mg/dL Creatinine (0.66-1.25) mg/dL POC Glucose (mg/dL) (75-99) mg/dL Creatine Kinase (55-170) U/L Urine Protein Trace H (Negative) Urine Ketones 1+ H (Negative) Urine Blood Trace H (Negative) Urine Bacteria Rare H (None) /hpf Hyaline Casts 5 H (0-2) /lpf Urine Mucus Rare H (None) /hpf Chest x-ray: report reviewed CT scan - chest: report reviewed MRI - head: report reviewed Assessment and Plan (1) Cancer of tongue Current Visit: Yes Status: Acute Code(s): C02.9 - MALIGNANT NEOPLASM OF TONGUE, UNSPECIFIED SNOMED Code(s): 317119394 (2) Thrombocytopenia Current Visit: Yes Status: Acute Code(s): D69.6 - THROMBOCYTOPENIA, UNSPECIFIED SNOMED Code(s): 588460412 (3) ETOH abuse Current Visit: Yes Status: Acute Code(s): F10.10 - ALCOHOL ABUSE, UNCOMPLICATED SNOMED Code(s): 83393656 (4) Respiratory failure Current Visit: Yes Status: Acute Code(s): J96.90 - RESPIRATORY FAILURE, UNSP, UNSP W HYPOXIA OR HYPERCAPNIA SNOMED Code(s): 124538209 Plan: Assessment and Recommendations: THrombocytopenia: - Patient has had low platelets chronically, felt to be related to history of ETOH, Liver disease, chrnoic ITP. - No anticoagulation or NSAIDS with less than 50K Acute Respiratory Failure: - Etiology unknown - Per ICU/Pulm - Currently Vented
[2021-02-08] MEDS ORDERED: IPRATROPIUM-ALBUTEROL 3 ML NEB INHALATION PRN (19:25)
[2021-02-08] MEDS ORDERED: LORazepam 2 MG/ML INJ IV PRN (19:37)
[2021-02-08] MEDS: THIAMINE 100 MG/ML 2 ML VIAL IVP SCH (19:40)
[2021-02-08] MEDS: IPRATROPIUM-ALBUTEROL 3 ML NEB INHALATION SCH (19:57)
[2021-02-08] MEDS: CHLORHEXIDINE GLUCONATE 15 ML CUP MUCOUS MEM SCH (20:18)
[2021-02-08] MEDS: PANTOPRAZOLE 40 MG/10 ML VIAL IVP SCH (20:18)
[2021-02-08] MEDS: HEPARIN SODIUM,PORCINE/PF 5,000 UNIT/0.5 ML SYRINGE SQ SCH (20:18)
[2021-02-08] MEDS: MIDODRINE 5 MG TAB PEG/G-TUBE SCH (20:18)
[2021-02-08] MEDS: CEFEPIME 2 GM in SODIUM CHLORIDE 0.9% 100 ML IVPB SCH (20:19)
[2021-02-08 20:20] LABS: ALT 22 U/L (4-49); AST 44 U/L (17-59); African American GFR (CKD) >90 (>60 ml/min/1.73 sqM); Albumin 4.3 g/dL (3.5-5.0); Alkaline Phosphatase 82 U/L (38-126); Anion Gap 12 mmol/L; Blood Urea Nitrogen 5 mg/dL (9-20); Calcium 8.8 mg/dL (8.4-10.2); Carbon Dioxide 22 mmol/L (22-30); Chloride 99 mmol/L (98-107); Glucose 90 mg/dL (74-99); Non-African American GFR(CKD) >90 (>60 ml/min/1.73 sqM); Potassium 4.1 mmol/L (3.5-5.1); Sodium 133 mmol/L (137-145); Total Bilirubin 1.2 mg/dL (0.2-1.3); Total Protein 7.5 g/dL (6.3-8.2)
[2021-02-08] MEDS ORDERED: LACOSAMIDE IV 50 MG in SODIUM CHLORIDE 0.9% 50 ML IVPB SCH (21:00)
[2021-02-08] MEDS: LACOSAMIDE IV 100 MG in SODIUM CHLORIDE 0.9% 50 ML IVPB SCH (21:42)
--- NOTE | 2021-02-08 22:19 | HP ---
HISTORY AND PHYSICAL DATE OF SERVICE: 02/08/2021. CHIEF COMPLAINT: Unresponsiveness and change in mental status. HISTORY OF PRESENT ILLNESS: This 60-year-old gentleman with a past medical history of multiple medical problems including history of COPD, history of GERD, status post tracheostomy and PEG tube. History of hemoptysis, pulmonary nodules, being followed by Dr. Campos in the outpatient setting, The patient apparently was abusing alcohol also. The patient drinks anywhere up to 3-4 or 5 drinks per day. Patient uses PEG tube for alcohol consumption according to the . The patient is found to be playing video games around 3 o'clock last night by the and then this morning around 10 o'clock, the found the patient lying on the floor and EMS was called and CPR was initiated. The patient was taken to [facility] and admitted to the hospital for evaluation and treatment. The patient was suspected to have right lower pneumonia, possibly aspiration. The patient was being mechanically ventilated and intubated. Currently the patient is on assist-control. With the settings, 400 tidal volume with 10 PEEP, and the patient is sating around more than 90% at this time. Patient mechanically ventilated and sedated. Initially the patient was not restless, but subsequently patient became more restless and the patient was started on propofol and CIWA protocol also been initiated. Currently the patient unable to provide a coherent history. Most of the history is taken from my discussion with staff and discussion with the ER physician at this time. Patient is also found to be some hypothermia. Broad-spectrum IV antibiotics has been given and the chest x-ray which was personally reviewed by me showed possibly evidence of right lobe pneumonia, some increased bronchovascular markings also. The CT scan of the head and cervical spine CT was also done which showed mild scalp contusion and tracheostomy also. EEG was also done per neurology recommendations. The EEG showed moderate to severe encephalopathy. There is no history of any other trauma at this time. PAST MEDICAL HISTORY: History of COPD, history of GERD, history of myocardial infarction, pneumonia, seizure disorder, history of tracheostomy and PEG tube. History of EtOH. MEDICATIONS: Ecotrin, Ativan, vitamin B12, vitamin B1, ProAmatine, Vimpat, DuoNeb, gabapentin, Pepcid, Lioresal. Doses are reviewed. ALLERGIES: None. Family history, social history and review of systems could not be taken because the patient is mechanically sedated. PHYSICAL EXAM: Pulse is 98. Blood pressure 109/84, respiration, 13, temperature 97 degrees, pulse ox 97% on mechanical ventilation, 50% FiO2. Mechanical vent settings are noted. HEENT: Conjunctivae normal. NECK is tracheostomy. CARDIOVASCULAR: S1, S2 muffled. No S3, no S4. RESPIRATORY: Breath sounds diminished in the bases. A few scattered rhonchi. ABDOMEN: Soft. PEG tube replaced. NERVOUS SYSTEM: Diffusely weak and emaciated. SKIN: No ulcers, rashes or bleeding. JOINTS: No active deforming arthropathy. NERVOUS SYSTEM: Patient is sedated. LABS: WBC 7.7, hemoglobin 14.8, platelets are 36 and sodium 139, potassium 4.3, UA noted. ASSESSMENT: 1. Change in mental status and unresponsiveness, possibly metabolic encephalopathy secondary to alcohol intoxication. 2. Acute right lower lobe pneumonia possibly aspiration with sepsis and change in mental status and metabolic encephalopathy. 3. Acute hypoxic respiratory failure on mechanical ventilation. 4. History of tracheostomy and PEG tube placement. 5. Severe thrombocytopenia. 6. Acute respiratory acidosis. 7. Hyponatremia. 8. History of chronic obstructive pulmonary disease. 9. Gastroesophageal reflux disease. 10.History of myocardial infarction. 11.History of pneumonia. 12.History of seizure disorder. 13.History of right hip fracture. 14.History of hemoptysis. 15.History of pulmonary nodules. 16.History of squamous cell carcinoma of the oral cavity with surgery, chemoradiation. Dysphagia. Status post PEG tube and tracheostomy. 17.History of upper gastrointestinal bleed. 18.History of thrombocytopenia. 19.History of chronic hypotension. 20.History of seizure from alcohol withdrawal previously. 21.History of sacral decubitus. 22.History of anxiety, depression. 23.Severe protein calorie malnutrition with body mass index of 16.1. 24.History of continued ongoing nicotine dependence. 25.History of THC. 26.FULL CODE. RECOMMENDATIONS AND DISCUSSION: This 60-year-old gentleman who presented with multiple complex medical issues, we will monitor the patient closely. Continue the current medications, management and symptomatic treatment. The patient is started on broad spectrum IV antibiotics. We will continue the bronchodilators and continue mechanical ventilation per Dr. Dukes. Otherwise, I would recommend [facility] protocol for alcohol withdrawals. DVT prophylaxis. Proton pump inhibitors. Prognosis guarded because of multiple complex medical issues. Repeat labs will be ordered. We will closely follow with pulmonology as well as Neurology and further recommendations to follow. A copy of this dictation being forwarded to Dr. Campos who is the primary physician. MMODL / IJN: [id number] / MTDD
[2021-02-08] MEDS ORDERED: SODIUM CHLORIDE 0.9% 1,000 ML IV ONE (22:21)
[2021-02-08 23:15] LABS: Glucose,Whole Blood 90 mg/dL (75-99)
[2021-02-08] MEDS: VANCOMYCIN 1,000 MG in SODIUM CHLORIDE 0.9% 250 ML IVPB SCH (23:30)
[2021-02-09] MEDS: SODIUM CHLORIDE 0.9% 1,000 ML IV SCH ×3 (01:55→20:51)
[2021-02-09 05:01] LABS: ALT 20 U/L (4-49); AST 38 U/L (17-59); African American GFR (CKD) >90 (>60 ml/min/1.73 sqM); Albumin 3.8 g/dL (3.5-5.0); Alkaline Phosphatase 74 U/L (38-126); Anion Gap 8 mmol/L; Blood Urea Nitrogen 5 mg/dL (9-20); Calcium 8.5 mg/dL (8.4-10.2); Carbon Dioxide 24 mmol/L (22-30); Chloride 105 mmol/L (98-107); Glucose 82 mg/dL (74-99); Non-African American GFR(CKD) >90 (>60 ml/min/1.73 sqM); Potassium 4.8 mmol/L (3.5-5.1); Sodium 137 mmol/L (137-145); Total Bilirubin 0.9 mg/dL (0.2-1.3); Total Protein 6.8 g/dL (6.3-8.2)
[2021-02-09] MEDS: CEFEPIME 2 GM in SODIUM CHLORIDE 0.9% 100 ML IVPB SCH (05:06)
[2021-02-09 05:38] LABS: Basophils # (A) 0.1 k/uL (0-0.2); Basophils % (A) 1 %; Eosinophils # (A) 0.1 k/uL (0-0.7); Eosinophils % (A) 0 %; HCT 44.2 % (39.0-53.0); HGB 14.6 gm/dL (13.0-17.5); Lymphocytes # (A) 1.1 k/uL (1.0-4.8); Lymphocytes % (A) 7 %; MCH 33.4 pg (25.0-35.0); Mean Platelet Volume 10.5; Monocytes # (A) 0.6 k/uL (0-1.0); Monocytes % (A) 4 %; Neutrophils # (A) 14.1 k/uL (1.3-7.7); Neutrophils % (A) 87 %; Platelet Count 29 k/uL (150-450); RBC 4.37 m/uL (4.30-5.90); WBC 16.2 k/uL (3.8-10.6)
[2021-02-09 05:39] LABS: MCV 101.1 fL (80.0-100.0)
[2021-02-09] MEDS: VANCOMYCIN 1,000 MG in SODIUM CHLORIDE 0.9% 250 ML IVPB SCH ×3 (06:07→22:10)
[2021-02-09 06:19] LABS: ABG Base Excess -2.4 mmol/L; ABG HCO3 23 mmol/L (21-25); ABG Oxygen Saturation 95.5 % (94-97); ABG PCO2 41 mmHg (35-45); ABG PH 7.36 (7.35-7.45); ABG PO2 80 mmHg (83-108); ABG TCO2 24 mmol/L (19-24); Allen Test Performed? Yes
[2021-02-09 06:22] LABS: Glucose,Whole Blood 89 mg/dL (75-99)
[2021-02-09] MEDS: IPRATROPIUM-ALBUTEROL 3 ML NEB INHALATION SCH ×3 (08:05→21:04)
[2021-02-09] MEDS ORDERED: ASPIRIN 81 MG PEG/G-TUBE SCH (09:00)
[2021-02-09] MEDS: HEPARIN SODIUM,PORCINE/PF 5,000 UNIT/0.5 ML SYRINGE SQ SCH ×2 (09:14→19:52)
[2021-02-09] MEDS: PANTOPRAZOLE 40 MG/10 ML VIAL IVP SCH ×2 (09:20→21:08)
[2021-02-09] MEDS: MIDODRINE 5 MG TAB PEG/G-TUBE SCH ×2 (09:20→22:08)
[2021-02-09] MEDS: SODIUM CHLORIDE TAB 1 GM TAB PEG/G-TUBE SCH (09:20)
[2021-02-09] MEDS: THIAMINE 100 MG/ML 2 ML VIAL IVP SCH (09:20)
[2021-02-09] MEDS: CHLORHEXIDINE GLUCONATE 15 ML CUP MUCOUS MEM SCH (09:20)
[2021-02-09] MEDS: CYANOCOBALAMIN 500 MCG TAB PEG/G-TUBE SCH (09:20)
[2021-02-09] MEDS: DEXMEDETOMIDINE/0.9% NACL(PMX) 400 MCG in EMPTY BAG 1 BAG IV SCH ×2 (09:27→21:13)
--- NOTE | 2021-02-09 09:37 | XR ---
EXAMINATION TYPE: XR chest 1V portable DATE OF EXAM: 02/09/2021 COMPARISON: 02/08/2021 HISTORY: Tube placement TECHNIQUE: Single frontal view of the chest is obtained. FINDINGS: Tracheostomy and left subclavian port are unchanged. Right basilar airspace disease is again seen. There is right infrahilar prominence and underlying mas s cannot be excluded. Cardiac silhouette is unchanged. IMPRESSION: Right basilar airspace disease is again seen. There is right infrahilar prominence and underlying mas s cannot be excluded.
[2021-02-09] MEDS: LACOSAMIDE IV 100 MG in SODIUM CHLORIDE 0.9% 50 ML IVPB SCH ×2 (10:20→21:09)
[2021-02-09 12:18] LABS: Glucose,Whole Blood 98 mg/dL (75-99)
--- NOTE | 2021-02-09 12:38 | P.PN ---
Subjective Progress Note Date: 02/09/21 Principal diagnosis: Acute hypoxic respiratory failure secondary to mental status change, possible acute metabolic encephalopathy suspect sepsis and suspect aspiration pneumonia. 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 His other medical history significant for COPD, seizure disorder, history of depression, history of falls, with right hip fracture and a surgical repair, and patient has multiple lung nodules that are being followed on an outpatient basis by Dr. Diaz since July 2020. Most recent computed tomography scan of the chest from all 12/18/2020 showed near complete resolution of the nodularity in the right lower lobe suggesting inflammatory rather than malignant abnormalities. Patient has a chronic tracheostomy tube in place, with an uncuffed #6 fenestrated trach, and patient is not usually on supplemental oxygen according to his . Patient is strict nothing by mouth at home according to the . He does have history of seizure disorder normally takes Lacosamide 50 mg twice a day per the PEG tube, in addition patient takes Ativan 1 mg daily as needed for anxiety, and Neurontin 300 mg 3 times a day. On 02/08/2021 patient was found unresponsive by his . She wasn't sure if patient had fallen or if he had a seizure although she denie d witnessing a seizure. In the ER EMS reported normal blood sugars and normal vitals. Patient did have poor respiratory effort he required to be airbag by EMS en route to the emergency department. Patient was afebrile on arrival, his oxygen saturation was 86%, his respiratory effort was poor. His uncuffed tracheostomy tube was changed for a coughed tracheostomy tube, and patient was placed on ventilator support. EEG showed normal sinus rhythm with a rate of 92 BPM with no acute ST or T-wave changes. Was QT prolongation noted. CBC was unremarkable, his platelet count was low at 36,000 however patient does have a history of thrombocytopenia, no leukocytosis, quite panel was negative, me tabolic panel showed mild hyponatremia with a serum sodium of 131, no evidence of urinary tract infection, urinalysis was negative, drug screen was negative, tox labs were negative, alvarez virus PCR was negative, influenza and RSV and rotavirus were all negative, CT of the brain and C-spine showed no acute process, chest x-ray showed right basilar airspace disease, patient was started on broad-spectrum antibiotic. Blood cultures have been sent. Patient's blood gas showed pO2 of 205, pCO2 40, pH of 7.32 this was done on FiO2 100%, and FiO2 has since been dropped down to 50%. Antibiotics in the form of cefepime and vancomycin were started, patient was given a total of 1 L and fluid boluses, and his maintenance IV fluids are infusing at a rate of 130 ML per hour. Neurology consultation has been requested, EEG is pending. Patient has been admitted to the intensive care unit where he woke up, he is strict to the ventilator, currently on assist control mode of ventilation with a rate of 12, tidal volume is 400, FiO2 50% and PEEP of 5. He is very agitated, was given 2 mg of IV Ativan, and he will be started on IV sedation, he is not following commands, however he is moving all 4 extremities. Patient was reevaluated today on 02/09/2021, remains in the ICU, intubated and mechanically ventilated. Patient is on assist control rate of 12, tidal volume 400 FiO2 40% PEEP of 5. ABG showed a pO2 of 80 pCO2 of 41 pH of 7.36. Patient is off propofol at present, he is awake, but restless and agitated, keeps thrashing in bed, does not follow any instructions except giving thumbs up using left thumb. When instructed to do so. Chest x-ray is showing worsening infiltrate in the right lower lobe, suspect aspiration pneumonia. Platelets are down to 29,000. Hematology is addressing the issue of his thrombocytopenia. Shunt may need to be transfused. Patient is not ready for weaning mostly because of his extreme agitation off propofol, hence I recommended that we start the patient on Precedex. WBC count is 16.2 hemoglobin is 14.6. Electrolytes are normal renal profile is normal. BUN is 5 creatinine is 0.59. Blood cultures are showing coagulase-negative staph and Streptococcus species. I possibly a contamination. Remains empirically on antibiotics in the form of cefepime and vancomycin. Chest x-ray clearly shows evidence of pneumonia will switch patient to Zosyn.. Objective - Vital Signs Vital signs: Vital Signs Temp 98.4 F 02/09/21 12:00 Pulse 115 H 02/09/21 12:00 Resp 13 02/09/21 12:00 BP 134/96 02/09/21 12:00 Pulse Ox 99 02/09/21 12:00 Intake & Output 02/08/21 02/09/21 02/09/21 18:59 06:59 18:59 Intake Total 580.185 1675.069 978.563 Output Total 1730 915 310 Balance -1479.613 232.069 668.563 Weight 45.359 kg 51.4 kg 51.4 kg Intake: IV 240 1060 480 Lacosamide IV 100 mg In 100 Sodium Chloride 0.9% 50 ml @ 100 mls/hr IVPB BID ALEJO Rx#:[id number] Sodium Chloride 0.9% 1, 240 960 480 000 ml @ 80 mls/hr IV . [id number] ALEJO Rx#:[id number] Intake, IV Titration 10.387 87.069 121.563 Amount Lacosamide IV 100 mg In 100 Sodium Chloride 0.9% 50 ml @ 100 mls/hr IVPB BID ALEJO Rx#:[id number] propofoL 1,000 mg In 10.387 87.069 21.563 Empty Bag 1 bag @ Titrate IV .Q0M ALEJO Rx#: [id number] Blood Product 377 Platelet Pheresis Pas 377 Psoralen Unit [id number] Output: Urine 1730 915 310 Uretheral ([place]) 1300 Other: Voiding Method Indwelling Catheter Indwelling Catheter Indwelling Catheter - Exam GENERAL EXAM: Revealed 60-year-old white male on mechanical ventilation, off propofol, agitated, restless, thrashing in bed, not following instructions. HEAD: Normocephalic/atraumatic. EENT: Tracheostomy is intact. Moist mucous membranes. Surgical changes noted on the tongue. PERRLA, EOMI, nonicteric. CHEST: No chest wall deformity. Symmetrical expansion. LUNGS: Diminished breath sounds at the bases no rhonchi and no wheezes CVS: Normal S1 and S2, no gallops ABDOMEN: Soft nontender no megaly, PEG tube is intact. EXTREMITIES: No clubbing edema or cyanosis. SKIN: No rashes CENTRAL NERVOUS SYSTEM: Alert, but agitated. Not following instructions except giving left thumb up - Labs CBC & Chem 7: 02/09/21 03:28 02/09/21 04:32 Labs: Abnormal Lab Results - Last 24 Hours (Table) 02/08/21 02/08/21 02/09/21 Range/Units 11:16 19:44 03:28 WBC 16.2 H (3.8-10.6) k/uL MCV 101.1 H D (80.0-100.0) fL Plt Count 36 L 29 L (150-450) k/uL Neutrophils # 14.1 H (1.3-7.7) k/uL Lymphocytes # 0.6 L (1.0-4.8) k/uL ABG pO2 (83-108) mmHg Sodium 133 L (137-145) mmol/L BUN 5 L (9-20) mg/dL Creatinine 0.47 L (0.66-1.25) mg/dL 02/09/21 02/09/21 Range/Units 04:32 06:15 WBC (3.8-10.6) k/uL MCV (80.0-100.0) fL Plt Count (150-450) k/uL Neutrophils # (1.3-7.7) k/uL Lymphocytes # (1.0-4.8) k/uL ABG pO2 80 L (83-108) mmHg Sodium (137-145) mmol/L BUN 5 L (9-20) mg/dL Creatinine 0.59 L (0.66-1.25) mg/dL Microbiology - Last 24 Hours (Table) 02/08/21 11:25 Blood Culture Gram Stain - Preliminary Blood Blood Culture - Preliminary Coagulase Negative Staph Streptococcus species 02/09/21 03:25 Gram Stain - Preliminary Sputum Sputum Culture - Preliminary 02/08/21 11:25 Blood Culture - Final Blood 02/08/21 19:34 Urine Culture - Preliminary Urine,Catheterized Assessment and Plan Assessment: Impression: Acute hypoxic respiratory failure secondary to acute metabolic encephalopathy, patient presented with unresponsiveness, mental status change, and was seems to be a right lower lobe pneumonia/aspiration pneumonia. Possible sepsis. Acute onset of altered mental status, being addressed by neurology on the case. Chronic thrombocytopenia, possibility of sepsis and worsening thrombocytopenia is being considered. This is being addressed by hematology on the case. History of squamous cell carcinoma of the tongue History of chronic indwelling tracheostomy. History of chronic obstructive pulmonary disease. History of pulmonary nodule being followed by Dr. Diaz on outpatient basis. Seizure disorder. History of right hip fracture and right hemiarthroplasty History of depression History of coronary artery disease and previous [place] Recommendation: Continue ventilatory support. Continue antibiotics, changed to Zosyn. Awaiting final cultures of the blood. Sputum cultures are pending. Start the nutritional support/enteral feeding via PEG tube. Neurology is addressing the neurological status. In the meantime I will try to start the patient on Precedex and discontinue propofol if possible. Continue to monitor daily x-rays of the chest. Consider trials of weaning with pressure support and CPAP in the patient does while on Precedex and becomes less agitated and restless. Continue daily labs monitoring. Continue GI and DVT prophylaxis however I'll avoid heparin because of his thrombocytopenia. We'll continue to monitor in the ICU. Patient is critically ill, discussed his condition with at bedside yesterday. Critical care time is over 30 minutes Time with Patient: Greater than 30
--- NOTE | 2021-02-09 12:42 | P.PN ---
Subjective Progress Note Date: 02/09/21 The patient is seen at bedside and per his nurse his IV propofol was stopped in the morning but was agitated. As a result he was started on Precedex 0.4mcg/kg/hr. Per his nurse he is following some commands as in showing thumbs and smiling. He continues to be on Ventilator via Trach. Objective - Vital Signs Vital signs: Vital Signs Temp 98.4 F 02/09/21 12:00 Pulse 115 H 02/09/21 12:00 Resp 13 02/09/21 12:00 BP 134/96 02/09/21 12:00 Pulse Ox 99 02/09/21 12:00 Intake & Output 02/08/21 02/09/21 02/09/21 18:59 06:59 18:59 Intake Total 928.669 2125.069 978.563 Output Total 1730 915 310 Balance -1479.613 232.069 668.563 Weight 45.359 kg 51.4 kg 51.4 kg Intake: IV 240 1060 480 Lacosamide IV 100 mg In 100 Sodium Chloride 0.9% 50 ml @ 100 mls/hr IVPB BID ALEJO Rx#:[id number] Sodium Chloride 0.9% 1, 240 960 480 000 ml @ 80 mls/hr IV . [id number] ALEJO Rx#:[id number] Intake, IV Titration 10.387 87.069 121.563 Amount Lacosamide IV 100 mg In 100 Sodium Chloride 0.9% 50 ml @ 100 mls/hr IVPB BID ALEJO Rx#:[id number] propofoL 1,000 mg In 10.387 87.069 21.563 Empty Bag 1 bag @ Titrate IV .Q0M ALEJO Rx#: [id number] Blood Product 377 Platelet Pheresis Pas 377 Psoralen Unit [id number] Output: Urine 1730 915 310 Uretheral ([place]) 1300 Other: Voiding Method Indwelling Catheter Indwelling Catheter Indwelling Catheter - Exam GENERAL: The patient is lying in bed and is not in acute distress. NEUROLOGICAL: Higher mental function: The patient is awake. He is not verbalizing. But is able to follow simple commands (showing thumbs up, smiling and moving extremiti es on commands). No neglect. Could not evaluate his verbal speech because of condition. Cranial nerves: The pupils are round, equal and reactive to light. Visual carrillo are full to threat throughout. Extraocular movement is tracking throughout the room and no nystagmus is noted. The facial strength is normal throughout. He opened his mouth and has tongue resection as result of oral cancer. Motor: Gait is deferred. The strength is moving all extremities above gravity without focality. Normal tone. Is cachectic throughout. Sensation: Sensation is normal to touch throughout. Plantars are mute downgoing bilaterally. - Labs CBC & Chem 7: 02/09/21 03:28 02/09/21 04:32 Labs: Abnormal Lab Results - Last 24 Hours (Table) 02/08/21 02/08/21 02/09/21 Range/Units 11:16 19:44 03:28 WBC 16.2 H (3.8-10.6) k/uL MCV 101.1 H D (80.0-100.0) fL Plt Count 36 L 29 L (150-450) k/uL Neutrophils # 14.1 H (1.3-7.7) k/uL Lymphocytes # 0.6 L (1.0-4.8) k/uL ABG pO2 (83-108) mmHg Sodium 133 L (137-145) mmol/L BUN 5 L (9-20) mg/dL Creatinine 0.47 L (0.66-1.25) mg/dL 02/09/21 02/09/21 Range/Units 04:32 06:15 WBC (3.8-10.6) k/uL MCV (80.0-100.0) fL Plt Count (150-450) k/uL Neutrophils # (1.3-7.7) k/uL Lymphocytes # (1.0-4.8) k/uL ABG pO2 80 L (83-108) mmHg Sodium (137-145) mmol/L BUN 5 L (9-20) mg/dL Creatinine 0.59 L (0.66-1.25) mg/dL Microbiology - Last 24 Hours (Table) 02/08/21 11:25 Blood Culture Gram Stain - Preliminary Blood Blood Culture - Preliminary Coagulase Negative Staph Streptococcus species 02/09/21 03:25 Gram Stain - Preliminary Sputum Sputum Culture - Preliminary 02/08/21 11:25 Blood Culture - Final Blood 02/08/21 19:34 Urine Culture - Preliminary Urine,Catheterized Assessment and Plan Assessment: * Encephalopathy. Unknown exact cause. Possibly alcohol withdrawl (alcohol level on presentation is <10)---Mentation improving * Episode of unresponsiveness with hypothermia. Unknown exact etiology. No leukocytosis, no fever and normal CRP, which seems unlikely meningoencephalitis. * Acute right lower lobe pneumonia possibly aspiration. * Acute hypoxic respiratory on mechanical ventilation * History of alcohol withdrawal seizures * Cervical spondylosis moderate to severe over C4-C5. * Chronic hyponatremia 131. 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 No Variable fracture. No acute intracranial abnormality seen. * CT cervical spine was reported as no acute fracture of the cervical spine. Similar moderate to advanced spondylosis change with a degenerative grade 2 enterolithiasis at C4-C5 and reversal of the cervical lordosis. Tracheostomy cannula. 7 mm nodularity along the posterior aspect of the right vocal cord. This could represent adherent mucous debris. Direct visualization when patient able to exclude a mucosal lesion. * Creatinine is 0.42, AST of 44 and ALT is 23, ammonia is 17, TSH is 2.350 which are all within normal limits. * EKG is reported as on determined rhythm. Low voltage QRS. Inferior infarct, age undetermined. Prolonged QT. Abnormal EKG. * An EEG on 02/08/2021 as an abnormal routine EEG. The generalized background slowing is consistent of moderate to severe encephalopathy. There are no focal slowing, epileptiform discharges or seizure on the EEG. Excessive fast activity is due to medication effect (Ativan). 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 * Continue Vimpat 100mg 1 tab bid (was on Vimpat 50mg bid and was increased during this hospital stay). If he continues to be doing well will titrate down. I * On Thiamine 100mg IV then after 2 day will switch over to med via PEG. * Will defer the rest of medical management the ICU and primary team. * On CIWA protocol and will defer managment to ICU and primary team. The plan is discussed with the patient's nurse. Cedric Mitchell MD Neuro-Hospitalist Time with Patient: Less than 30
[2021-02-09] MEDS: PIPERACILLIN-TAZOBACTAM 3.375 GM in SODIUM CHLORIDE 0.9% 100 ML IVPB SCH (15:45)
[2021-02-09 17:11] LABS: Glucose,Whole Blood 105 mg/dL (75-99)
--- NOTE | 2021-02-09 18:24 | PN ---
PROGRESS NOTE DATE OF SERVICE: 02/09/2021 HISTORY: This 60-year-old gentleman who was admitted with acute hypoxic respiratory failure with unresponsiveness, was weaned off the ventilator at this time. The patient continues to be unresponsive. The blood culture is showing coag-negative staph and strep species. Chest x-ray showed bibasilar pneumonia. Patient on broad spectrum IV antibiotics. Multiple consultants are following the patient closely. The patient also had a history of putting alcohol into the PEG tube. CIVA protocol is being continued. PAST MEDICAL HISTORY: Reviewed. REVIEW OF SYSTEMS: Could not be taken. CURRENT MEDICATIONS: Reviewed and include Tylenol, DuoNeb as aspirin, Peridex, Ativan, ProAmatine, Protonix. PHYSICAL EXAMINATION: Patient is stuporous. Pulse is 57, blood pressure 120/72, respirations 16, pulse rate 62, temperature 98.2 pulse ox 100 percent. HEENT: Conjunctivae normal. NECK: No JVD. CARDIOVASCULAR: S1 and S2 muffled. LUNGS: Few scattered rhonchi. ABDOMEN: Soft. NERVOUS SYSTEM: Diffusely weak and emaciated. LABS: WBC 16.2, MCV 101. ASSESSMENT: 1. Change in mental status, unresponsive, possible acute metabolic encephalopathy secondary to alcohol intoxication. 2. Acute right lower lobe pneumonia with possible aspiration with sepsis and acute hypoxic respiratory failure status post mechanical ventilation. 3. Change in mental status, acute metabolic acidosis sepsis. 4. History of tracheostomy and PEG tube placement. 5. Severe thrombocytopenia. 6. History of ETOH. 7. Acute respiratory acidosis. 8. Hyponatremia. 9. Strep as well as coagulase-negative Staph from the blood cultures. 10.History of chronic obstructive pulmonary disease. 11.History of myocardial infarction. 12.History of pneumonia. 13.History of seizure disorder. 14.History of right hip fracture. 15.History of hemoptysis. 16.History of pulmonary nodule. 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 18.History of upper gastrointestinal bleed. 19.History of thrombocytopenia. 20.History of chronic hypotension. 21.History of seizure from alcohol withdrawal previously. 22.History of sacral decubitus. 23.Anxiety, depression. 24.Severe protein calorie malnutrition with body mass index of 16.1. 25.History of continued ongoing nicotine dependence. 26.History of THC. 27.FULL CODE. RECOMMENDATIONS: Recommend to continue current management and continue with broad-spectrum IV antibiotics. Otherwise, at this time I would follow closely with Dr. Dukes. We will repeat blood cultures. Hematology/Oncology is also following the patient closely. Overall prognosis guarded because of multiple complex medical issues. Further recommendations to follow. Social Work and Case Management to follow once the patient is improved. Prognosis guarded. See orders for details. MMODL / IJN: [id number] /
[2021-02-09] MEDS: LORazepam 2 MG/ML INJ IV PRN ×2 (20:10→22:54)
[2021-02-09] MEDS ORDERED: VANCOMYCIN TROUGH DUE 1 EACH MISC MISCELLANE ONE (21:00)
[2021-02-09 22:59] LABS: Glucose,Whole Blood 128 mg/dL (75-99)
[2021-02-10] MEDS: PIPERACILLIN-TAZOBACTAM 3.375 GM in SODIUM CHLORIDE 0.9% 100 ML IVPB SCH ×4 (00:02→23:27)
[2021-02-10 04:05] LABS: ALT 19 U/L (4-49); AST 39 U/L (17-59); African American GFR (CKD) >90 (>60 ml/min/1.73 sqM); Albumin 3.4 g/dL (3.5-5.0); Alkaline Phosphatase 68 U/L (38-126); Anion Gap 8 mmol/L; Blood Urea Nitrogen 4 mg/dL (9-20); Calcium 8.7 mg/dL (8.4-10.2); Carbon Dioxide 27 mmol/L (22-30); Chloride 103 mmol/L (98-107); Glucose 120 mg/dL (74-99); Non-African American GFR(CKD) >90 (>60 ml/min/1.73 sqM); Potassium 3.1 mmol/L (3.5-5.1); Sodium 138 mmol/L (137-145); Total Bilirubin 0.9 mg/dL (0.2-1.3); Total Protein 6.4 g/dL (6.3-8.2)
[2021-02-10 04:32] LABS: Basophils % (A) 1 %; Eosinophils % (A) 1 %; HCT 36.5 % (39.0-53.0); HGB 13.3 gm/dL (13.0-17.5); Lymphocytes # (A) 0.4 k/uL (1.0-4.8); Lymphocytes % (A) 4 %; MCH 35.8 pg (25.0-35.0); MCHC 36.5 g/dL (31.0-37.0); MCV 97.9 fL (80.0-100.0); Mean Platelet Volume 10.2; Monocytes # (A) 0.2 k/uL (0-1.0); Monocytes % (A) 3 %; Neutrophils # (A) 7.2 k/uL (1.3-7.7); Neutrophils % (A) 91 %; RBC 3.73 m/uL (4.30-5.90); RDW 12.9 % (11.5-15.5)
[2021-02-10] MEDS ORDERED: Potassium Replacement Protocol 1 EACH MISC MISCELLANE PRN (04:39)
[2021-02-10] MEDS: POTASSIUM BICARBONATE/CIT AC 20 MEQ TABLET.EFF NG-TUBE SCH ×2 (05:00→06:08)
[2021-02-10 05:07] LABS: Platelet Count 22 k/uL (150-450)
[2021-02-10] MEDS: VANCOMYCIN 1,000 MG in SODIUM CHLORIDE 0.9% 250 ML IVPB SCH ×2 (06:08→14:11)
[2021-02-10] MEDS: IPRATROPIUM-ALBUTEROL 3 ML NEB INHALATION SCH ×3 (07:21→20:34)
--- NOTE | 2021-02-10 07:30 | XR ---
EXAMINATION TYPE: XR chest 1V portable DATE OF EXAM: 02/10/2021 COMPARISON: 02/09/2021 HISTORY: Tube placement TECHNIQUE: Single frontal view of the chest is obtained. FINDINGS: Tracheostomy tube and left subclavian port are unchanged. Right lower lung zone airspace opacity appears less prominent than on the prior examination. Prominen ce of the right infrahilar region is unchanged. Cardiac silhouette is not enlarged. IMPRESSION: Right lower lung zone airspace opacity appears less prominent than on the prior examination.
[2021-02-10] MEDS: PANTOPRAZOLE 40 MG/10 ML VIAL IVP SCH ×2 (08:14→20:57)
[2021-02-10] MEDS: CYANOCOBALAMIN 500 MCG TAB PEG/G-TUBE SCH (08:14)
[2021-02-10] MEDS: THIAMINE 100 MG/ML 2 ML VIAL IVP SCH (08:14)
[2021-02-10] MEDS: LACOSAMIDE IV 100 MG in SODIUM CHLORIDE 0.9% 50 ML IVPB SCH (08:14)
[2021-02-10] MEDS: SODIUM CHLORIDE TAB 1 GM TAB PEG/G-TUBE SCH (08:14)
[2021-02-10] MEDS: MIDODRINE 5 MG TAB PEG/G-TUBE SCH ×2 (08:14→20:57)
[2021-02-10] MEDS: LORazepam 2 MG/ML INJ IV PRN ×2 (08:21→11:14)
[2021-02-10 11:46] LABS: Glucose,Whole Blood 140 mg/dL (75-99)
--- NOTE | 2021-02-10 12:09 | P.PN ---
Subjective Progress Note Date: 02/10/21 Principal diagnosis: Acute hypoxic respiratory failure secondary to mental status change, possible acute metabolic encephalopathy suspect sepsis and suspect aspiration pneumonia. 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 His other medical history significant for COPD, seizure disorder, history of depression, history of falls, with right hip fracture and a surgical repair, and patient has multiple lung nodules that are being followed on an outpatient basis by Dr. Diaz since July 2020. Most recent computed tomography scan of the chest from all 12/18/2020 showed near complete resolution of the nodularity in the right lower lobe suggesting inflammatory rather than malignant abnormalities. Patient has a chronic tracheostomy tube in place, with an uncuffed #6 fenestrated trach, and patient is not usually on supplemental oxygen according to his . Patient is strict nothing by mouth at home according to the . He does have history of seizure disorder normally takes Lacosamide 50 mg twice a day per the PEG tube, in addition patient takes Ativan 1 mg daily as needed for anxiety, and Neurontin 300 mg 3 times a day. On 02/08/2021 patient was found unresponsive by his . She wasn't sure if patient had fallen or if he had a seizure although she denie d witnessing a seizure. In the ER EMS reported normal blood sugars and normal vitals. Patient did have poor respiratory effort he required to be airbag by EMS en route to the emergency department. Patient was afebrile on arrival, his oxygen saturation was 86%, his respiratory effort was poor. His uncuffed tracheostomy tube was changed for a coughed tracheostomy tube, and patient was placed on ventilator support. EEG showed normal sinus rhythm with a rate of 92 BPM with no acute ST or T-wave changes. Was QT prolongation noted. CBC was unremarkable, his platelet count was low at 36,000 however patient does have a history of thrombocytopenia, no leukocytosis, quite panel was negative, me tabolic panel showed mild hyponatremia with a serum sodium of 131, no evidence of urinary tract infection, urinalysis was negative, drug screen was negative, tox labs were negative, alvarez virus PCR was negative, influenza and RSV and rotavirus were all negative, CT of the brain and C-spine showed no acute process, chest x-ray showed right basilar airspace disease, patient was started on broad-spectrum antibiotic. Blood cultures have been sent. Patient's blood gas showed pO2 of 205, pCO2 40, pH of 7.32 this was done on FiO2 100%, and FiO2 has since been dropped down to 50%. Antibiotics in the form of cefepime and vancomycin were started, patient was given a total of 1 L and fluid boluses, and his maintenance IV fluids are infusing at a rate of 130 ML per hour. Neurology consultation has been requested, EEG is pending. Patient has been admitted to the intensive care unit where he woke up, he is strict to the ventilator, currently on assist control mode of ventilation with a rate of 12, tidal volume is 400, FiO2 50% and PEEP of 5. He is very agitated, was given 2 mg of IV Ativan, and he will be started on IV sedation, he is not following commands, however he is moving all 4 extremities. Patient was reevaluated today on 02/09/2021, remains in the ICU, intubated and mechanically ventilated. Patient is on assist control rate of 12, tidal volume 400 FiO2 40% PEEP of 5. ABG showed a pO2 of 80 pCO2 of 41 pH of 7.36. Patient is off propofol at present, he is awake, but restless and agitated, keeps thrashing in bed, does not follow any instructions except giving thumbs up using left thumb. When instructed to do so. Chest x-ray is showing worsening infiltrate in the right lower lobe, suspect aspiration pneumonia. Platelets are down to 29,000. Hematology is addressing the issue of his thrombocytopenia. Shunt may need to be transfused. Patient is not ready for weaning mostly because of his extreme agitation off propofol, hence I recommended that we start the patient on Precedex. WBC count is 16.2 hemoglobin is 14.6. Electrolytes are normal renal profile is normal. BUN is 5 creatinine is 0.59. Blood cultures are showing coagulase-negative staph and Streptococcus species. I possibly a contamination. Remains empirically on antibiotics in the form of cefepime and vancomycin. Chest x-ray clearly shows evidence of pneumonia will switch patient to Zosyn.. Patient was reevaluated today on 02/10/2021, remains in the ICU, tolerated extubation from mechanical ventilation yesterday, however he remains on trach collar at 40%. Patient is off Precedex. Not requiring much sedation except intermittent Ativan for agitation. Patient remains on tube feeds using Jevity at 30 mL per hour. Goal is 60. Patient remains on the CIWA protocol. Patient is awake, following simple instructions, no major change in the last 24 hours. Chest x-ray continues to show right lower lobe infiltrate consistent with aspiration pneumonia. CBC today is relatively normal basic metabolic profile is normal potassium is a bit low being corrected now 3.6. Objective - Vital Signs Vital signs: Vital Signs Temp 36.6 F L 02/10/21 08:00 Pulse 144 H 02/10/21 11:59 Resp 27 H 02/10/21 11:00 BP 135/88 02/10/21 11:00 Pulse Ox 98 02/10/21 11:00 Intake & Output 02/09/21 02/10/21 02/10/21 18:59 06:59 18:59 Intake Total 1903.563 920.481 332.013 Output Total 1380 1455 525 Balance 523.563 -534.519 -192.987 Weight 51.4 kg 54.7 kg Intake: IV 1040 80 Sodium Chloride 0.9% 1, 1040 80 000 ml @ 80 mls/hr IV . [id number] [facility] Rx#:[id number] Intake, IV Titration 396.563 560.481 332.013 Amount Dexmedetomidine/0.9% NaCl 60.481 57.013 (Pmx) 400 mcg In Empty Bag 1 bag @ Titrate IV . Q0M [facility] Rx#:[id number] Lacosamide IV 100 mg In 100 50 Sodium Chloride 0.9% 50 ml @ 100 mls/hr IVPB BID [facility] Rx#:[id number] Piperacillin-Tazobactam 3 100 75 .375 gm In Sodium Chloride 0.9% 100 ml @ 25 mls/hr IVPB Q8HR [facility] Rx# :[id number] Sodium Chloride 0.9% 1, 50 500 150 000 ml @ 50 mls/hr IV . Q20H [facility] Rx#:[id number] Vancomycin 1,000 mg In 125 Sodium Chloride 0.9% 250 ml @ 125 mls/hr IVPB Q8H [facility] Rx#:[id number] propofoL 1,000 mg In 21.563 Empty Bag 1 bag @ Titrate IV .Q0M COUNTS INCLUDE 234 BEDS AT THE [facility] Rx#: [id number] Tube Feeding 60 210 Blood Product 377 Platelet Pheresis Pas 377 Psoralen Unit [id number] Other 30 70 Output: Urine 1380 1455 525 Other: Voiding Method Indwelling Catheter Indwelling Catheter Indwelling Catheter - Exam GENERAL EXAM: Revealed 60-year-old white male on trach collar 40%, not in distress. HEAD: Normocephalic/atraumatic. EENT: Tracheostomy is intact. Moist mucous membranes. Surgical changes noted on the tongue. PERRLA, EOMI, nonicteric. CHEST: No chest wall deformity. Symmetrical expansion. LUNGS: Diminished breath sounds, crackles at the bases. CVS: Normal S1 and S2, no gallops ABDOMEN: Soft nontender no megaly, PEG tube is intact. EXTREMITIES: No clubbing edema or cyanosis. SKIN: No rashes CENTRAL NERVOUS SYSTEM: Alert, follows simple instructions. - Labs CBC & Chem 7: 02/10/21 03:28 02/10/21 07:53 Labs: Abnormal Lab Results - Last 24 Hours (Table) 02/09/21 02/09/21 02/10/21 Range/Units 17:09 22:58 03:28 RBC 3.73 L (4.30-5.90) m/uL Hct 36.5 L (39.0-53.0) % MCH 35.8 H (25.0-35.0) pg Plt Count 22 L (150-450) k/uL Lymphocytes # 0.4 L (1.0-4.8) k/uL Potassium (3.5-5.1) mmol/L BUN (9-20) mg/dL Creatinine (0.66-1.25) mg/dL Glucose (74-99) mg/dL POC Glucose (mg/dL) 105 H 128 H (75-99) mg/dL Albumin (3.5-5.0) g/dL 02/10/21 02/10/21 Range/Units 03:28 11:43 RBC (4.30-5.90) m/uL Hct (39.0-53.0) % MCH (25.0-35.0) pg Plt Count (150-450) k/uL Lymphocytes # (1.0-4.8) k/uL Potassium 3.1 L (3.5-5.1) mmol/L BUN 4 L (9-20) mg/dL Creatinine 0.38 L (0.66-1.25) mg/dL Glucose 120 H (74-99) mg/dL POC Glucose (mg/dL) 140 H (75-99) mg/dL Albumin 3.4 L (3.5-5.0) g/dL Microbiology - Last 24 Hours (Table) 02/09/21 03:25 Gram Stain - Preliminary Sputum Sputum Culture - Preliminary Gram Neg Bacilli 02/08/21 19:34 Urine Culture - Final Urine,Catheterized 02/08/21 11:25 Blood Culture Gram Stain - Preliminary Blood Blood Culture - Preliminary Coagulase Negative Staph Streptococcus species Assessment and Plan Assessment: Impression: Acute hypoxic respiratory failure secondary to acute metabolic encephalopathy, patient presented with unresponsiveness, mental status change, and was seems to be a right lower lobe pneumonia/aspiration pneumonia. Possible sepsis. Acute onset of altered mental status, being addressed by neurology on the case. Suspect alcohol withdrawal or possibly alcohol withdrawal seizures Chronic thrombocytopenia History of squamous cell carcinoma of the tongue History of chronic indwelling tracheostomy. History of chronic obstructive pulmonary disease. History of pulmonary nodule being followed by Dr. Diaz on outpatient basis. Seizure disorder. History of right hip fracture and right hemiarthroplasty History of depression History of coronary artery disease and previous MO Recommendation: Continue trach collar, patient is off mechanical ventilation. Continue Zosyn Awaiting final cultures of the blood. Sputum cultures are positive for gram- negative bacilli. Continue nutritional support/enteral feeding via PEG tube. Neurology is addressing the neurological status. Continue CIWA protocol. Continue to monitor daily x-rays of the chest. Continue GI and DVT prophylaxis however I'll avoid heparin because of his thrombocytopenia. We'll continue to monitor in the ICU. At least for the next 24 hours. Time with Patient: Less than 30
--- NOTE | 2021-02-10 13:00 | P.PN ---
Subjective Progress Note Date: 02/10/21 Principal diagnosis: Sepsis Remains in care of ICU, Febrile today, Positive cultures sputum gram negative bacilli, and ID is following asnd antibiotic coverage continues. Platelets decreased 22K. Will monitor closely for DIC complications. He was placed back on ventilator today Objective - Vital Signs Vital signs: Vital Signs Temp 100.2 F H 02/10/21 12:00 Pulse 144 H 02/10/21 12:07 Resp 27 H 02/10/21 12:00 BP 135/88 02/10/21 12:00 Pulse Ox 98 02/10/21 12:00 Intake & Output 02/09/21 02/10/21 02/10/21 18:59 06:59 18:59 Intake Total 1903.563 920.481 357.013 Output Total 1380 1455 650 Balance 523.563 -534.519 -292.987 Weight 51.4 kg 54.7 kg Intake: IV 1040 80 Sodium Chloride 0.9% 1, 1040 80 000 ml @ 80 mls/hr IV . [id number] [facility] Rx#:[id number] Intake, IV Titration 396.563 560.481 357.013 Amount Dexmedetomidine/0.9% NaCl 60.481 57.013 (Pmx) 400 mcg In Empty Bag 1 bag @ Titrate IV . Q0M [facility] Rx#:[id number] Lacosamide IV 100 mg In 100 50 Sodium Chloride 0.9% 50 ml @ 100 mls/hr IVPB BID [facility] Rx#:[id number] Piperacillin-Tazobactam 3 100 100 .375 gm In Sodium Chloride 0.9% 100 ml @ 25 mls/hr IVPB Q8HR [facility] Rx# :[id number] Sodium Chloride 0.9% 1, 50 500 150 000 ml @ 50 mls/hr IV . Q20H [facility] Rx#:[id number] Vancomycin 1,000 mg In 125 Sodium Chloride 0.9% 250 ml @ 125 mls/hr IVPB Q8H [facility] Rx#:[id number] propofoL 1,000 mg In 21.563 0 Empty Bag 1 bag @ Titrate IV .Q0M [facility] Rx#: [id number] Tube Feeding 60 210 Blood Product 377 Platelet Pheresis Pas 377 Psoralen Unit [id number] Other 30 70 Output: Urine 1380 1455 650 Other: Voiding Method Indwelling Catheter Indwelling Catheter Indwelling Catheter - Exam Ventilator Trach NAD No rash No s/s bleeding - Labs CBC & Chem 7: 02/10/21 03:28 02/10/21 07:53 Labs: Abnormal Lab Results - Last 24 Hours (Table) 02/09/21 02/09/21 02/10/21 Range/Units 17:09 22:58 03:28 RBC 3.73 L (4.30-5.90) m/uL Hct 36.5 L (39.0-53.0) % MCH 35.8 H (25.0-35.0) pg Plt Count 22 L (150-450) k/uL Lymphocytes # 0.4 L (1.0-4.8) k/uL Potassium (3.5-5.1) mmol/L BUN (9-20) mg/dL Creatinine (0.66-1.25) mg/dL Glucose (74-99) mg/dL POC Glucose (mg/dL) 105 H 128 H (75-99) mg/dL Albumin (3.5-5.0) g/dL 02/10/21 02/10/21 Range/Units 03:28 11:43 RBC (4.30-5.90) m/uL Hct (39.0-53.0) % MCH (25.0-35.0) pg Plt Count (150-450) k/uL Lymphocytes # (1.0-4.8) k/uL Potassium 3.1 L (3.5-5.1) mmol/L BUN 4 L (9-20) mg/dL Creatinine 0.38 L (0.66-1.25) mg/dL Glucose 120 H (74-99) mg/dL POC Glucose (mg/dL) 140 H (75-99) mg/dL Albumin 3.4 L (3.5-5.0) g/dL Microbiology - Last 24 Hours (Table) 02/09/21 03:25 Gram Stain - Preliminary Sputum Sputum Culture - Preliminary Gram Neg Bacilli 02/08/21 19:34 Urine Culture - Final Urine,Catheterized 02/08/21 11:25 Blood Culture Gram Stain - Preliminary Blood Blood Culture - Preliminary Coagulase Negative Staph Streptococcus species Assessment and Plan (1) Cancer of tongue Current Visit: Yes Status: Acute Code(s): C02.9 - MALIGNANT NEOPLASM OF TONGUE, UNSPECIFIED SNOMED Code(s): 512322409 (2) Thrombocytopenia Current Visit: Yes Status: Acute Code(s): D69.6 - THROMBOCYTOPENIA, UNS PECIFIED SNOMED Code(s): 730086019 (3) ETOH abuse Current Visit: Yes Status: Acute Code(s): F10.10 - ALCOHOL ABUSE, UNCOMPLICATED SNOMED Code(s): 49215152 (4) Respiratory failure Current Visit: Yes Status: Acute Code(s): J96.90 - RESPIRATORY FAILURE, U NSP, UNSP W HYPOXIA OR HYPERCAPNIA SNOMED Code(s): 868740378 Plan: Assessment and Recommendations: THrombocytopenia: - Patient has had low platelets chronically, felt to be related to history of ETOH, Liver disease, chrnoic ITP. - No anticoagulation or NSAIDS with less than 50K Acute Respiratory Failure: - Etiology unknown - Per ICU/Pulm -With Active infection of the critically ill patient, febrile and thrombocytopenia continue to monitor closely for DIC complications from sepsis: - Recheck DIC panel now Acute respiratory Failure: - Ventilator support re-required, this am CBC daily Monitor for low fibrinogen
[2021-02-10] MEDS: SODIUM CHLORIDE 0.9% 1,000 ML IV SCH (14:17)
[2021-02-10 14:33] LABS: D-Dimer 2.34 mg/L FEU (<0.60); INR 1.1 (<1.2); Partial Thromboplastin Time 25.9 sec (22.0-30.0); Prothrombin Time 11.6 sec (9.0-12.0)
--- NOTE | 2021-02-10 16:44 | P.PN ---
Subjective Progress Note Date: 02/10/21 The patient was seen at bedside and per the patient nurse no seizure-like activity seen. Patient was restless with a heart rate of 160s as a result he received Ativan and he is on CIWA protocol for alcohol withdrawl. He is on Precedex 0.2mcg/kg/hr. he continues to be on a ventilator via Trach. Objective - Vital Signs Vital signs: Vital Signs Temp 99.5 F 02/10/21 16:00 Pulse 78 02/10/21 16:00 Resp 17 02/10/21 16:00 BP 65/45 02/10/21 16:00 Pulse Ox 98 02/10/21 16:00 Intake & Output 02/09/21 02/10/21 02/10/21 18:59 06:59 18:59 Intake Total 1903.563 920.481 863.686 Output Total 1380 1455 830 Balance 523.563 -534.519 33.686 Weight 51.4 kg 54.7 kg Intake: IV 1040 80 Sodium Chloride 0.9% 1, 1040 80 000 ml @ 80 mls/hr IV . [id number] [facility] Rx#:[id number] Intake, IV Titration 396.563 560.481 563.686 Amount Dexmedetomidine/0.9% NaCl 60.481 57.013 (Pmx) 400 mcg In Empty Bag 1 bag @ Titrate IV . Q0M [facility] Rx#:[id number] Lacosamide IV 100 mg In 100 50 Sodium Chloride 0.9% 50 ml @ 100 mls/hr IVPB BID [facility] Rx#:[id number] Piperacillin-Tazobactam 3 100 100 .375 gm In Sodium Chloride 0.9% 100 ml @ 25 mls/hr IVPB Q8HR [facility] Rx# :[id number] Sodium Chloride 0.9% 1, 50 500 350 000 ml @ 50 mls/hr IV . Q20H [facility] Rx#:[id number] Vancomycin 1,000 mg In 125 Sodium Chloride 0.9% 250 ml @ 125 mls/hr IVPB Q8H [facility] Rx#:[id number] propofoL 1,000 mg In 21.563 6.673 Empty Bag 1 bag @ Titrate IV .Q0M [facility] Rx#: [id number] Tube Feeding 60 210 210 Blood Product 377 Platelet Pheresis Pas 377 Psoralen Unit [id number] Other 30 70 90 Output: Urine 1380 1455 830 Other: Voiding Method Indwelling Catheter Indwelling Catheter Indwelling Catheter # Bowel Movements 1 - Exam GENERAL: The patient is lying in bed and is not in acute distress. NEUROLOGICAL: Higher mental function: The patient is awake and attempting to verbalize. He is able to follow simple commands (showing thumbs up, smiling and moving extremities on commands). No neglect. Could not evaluate his verbal speech because of condition. Cranial nerves: The pupils are round, equal and reactive to light. Visual carrillo are full to threat throughout. Extraocular movement is tracking throughout the room and no nystagmus is noted. The facial strength is normal throughout. He opened his mouth and has tongue resection as result of oral cancer. Motor: Gait is deferred. The strength is moving all extremities above gravity without focality. Normal tone. Is cachectic throughout. Sensation: Sensation is normal to touch throughout. Plantars are mute downgoing bilaterally. - Labs CBC & Chem 7: 02/10/21 03:28 02/10/21 07:53 Labs: Abnormal Lab Results - Last 24 Hours (Table) 02/09/21 02/09/21 02/10/21 Range/Units 17:09 22:58 03:28 RBC 3.73 L (4.30-5.90) m/uL Hct 36.5 L (39.0-53.0) % MCH 35.8 H (25.0-35.0) pg Plt Count 22 L (150-450) k/uL Lymphocytes # 0.4 L (1.0-4.8) k/uL D-Dimer (<0.60) mg/L FEU Potassium (3.5-5.1) mmol/L BUN (9-20) mg/dL Creatinine (0.66-1.25) mg/dL Glucose (74-99) mg/dL POC Glucose (mg/dL) 105 H 128 H (75-99) mg/dL Albumin (3.5-5.0) g/dL 02/10/21 02/10/21 02/10/21 Range/Units 03:28 11:43 13:09 RBC (4.30-5.90) m/uL Hct (39.0-53.0) % MCH (25.0-35.0) pg Plt Count (150-450) k/uL Lymphocytes # (1.0-4.8) k/uL D-Dimer 2.34 H (<0.60) mg/L FEU Potassium 3.1 L (3.5-5.1) mmol/L BUN 4 L (9-20) mg/dL Creatinine 0.38 L (0.66-1.25) mg/dL Glucose 120 H (74-99) mg/dL POC Glucose (mg/dL) 140 H (75-99) mg/dL Albumin 3.4 L (3.5-5.0) g/dL Microbiology - Last 24 Hours (Table) 02/09/21 03:25 Gram Stain - Preliminary Sputum Sputum Culture - Preliminary Gram Neg Bacilli 02/08/21 19:34 Urine Culture - Final Urine,Catheterized Assessment and Plan Assessment: * Encephalopathy. Unknown exact cause. Possibly alcohol withdrawl (alcohol level on presentation is <10)---Mentation improving * Episode of unresponsiveness with hypothermia. Unknown exact etiology. No leukocytosis, no fever and normal CRP, which seems unlikely meningoencephalitis. * Acute right lower lobe pneumonia possibly aspiration. * Acute hypoxic respiratory on mechanical ventilation * History of alcohol withdrawal seizures * Cervical spondylosis moderate to severe over C4-C5. * Chronic hyponatremia 131. 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 No Variable fracture. No acute intracranial abnormality seen. * CT cervical spine was reported as no acute fracture of the cervical spine. Similar moderate to advanced spondylosis change with a degenerative grade 2 enterolithiasis at C4-C5 and reversal of the cervical lordosis. Tracheostomy cannula. 7 mm nodularity along the posterior aspect of the right vocal cord. This could represent adherent mucous debris. Direct visualization when patient able to exclude a mucosal lesion. * Creatinine is 0.42, AST of 44 and ALT is 23, ammonia is 17, TSH is 2.350 which are all within normal limits. * EKG is reported as on determined rhythm. Low voltage QRS. Inferior infarct, age undetermined. Prolonged QT. Abnormal EKG. * An EEG on 02/08/2021 as an abnormal routine EEG. The generalized background slowing is consistent of moderate to severe encephalopathy. There are no focal slowing, epileptiform discharges or seizure on the EEG. Excessive fast activity is due to medication effect (Ativan). 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 * I will decrease Vimpat 100mg 1 tab bid to 50mg bid. * On Thiamine 100mg IV then after 1 day will switch over to med via PEG. * Will defer the rest of medical management the ICU and primary team. * On CIWA protocol and will defer managment to ICU and primary team. The plan is discussed with the patient's nurse. Cedric Mitchell MD Neuro-Hospitalist Time with Patient: Less than 30
[2021-02-10 17:42] LABS: Glucose,Whole Blood 145 mg/dL (75-99)
--- NOTE | 2021-02-10 20:06 | P.PN ---
Subjective This is a pleasant 60 years old male with multiple medical problems. Presents with altered mental status, metabolic encephalopathy is suspected, aspiration pneumonia is also in the differential diagnosis, neurology on the case also with seizure was also suspected. Patient is currently an event that 150 mg twice a day. EEG shows no epileptiform activity. CT of the brain is negative for acute process. CT of the cervical spine showing no acute fracture. However patient looks to have severe sepsis. He is currently on Zosyn and IV vancomycin. Sputum culture is growing gram-negative bacilli and final result is pending Toilet team R following the case for low platelet count which is suspected to be multifactorial secondary to alcohol, chronic ITP and liver disease. 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 Today patient breathing situation deteriorated and he had to be placed back on vent and sedated. Patient has tracheostomy Review of system: N/a Active Medications Generic Name Dose Route Start Last Admin Trade Name Freq PRN Reason Stop Dose Admin Acetaminophen 650 mg 02/08/21 13:19 Acetaminophen Suppository 650 Mg Supp RECTAL Q4HR PRN Fever And/ Or Mild Pain Albuterol/Ipratropium 3 ml 02/08/21 20:00 02/10/21 11:55 Ipratropium-Albuterol 3 Ml Neb INHALATION 3 ml RT-TID ALEJO Administration Albuterol/Ipratropium 3 ml 02/08/21 19:25 Ipratropium-Albuterol 3 Ml Neb INHALATION RT-TID PRN Shortness Of Breath Or Wheezing Cyanocobalamin 500 mcg 02/09/21 09:00 02/10/21 08:14 Cyanocobalamin 500 Mcg Tab PEG/G-TUBE 500 mcg DAILY ALEJO Administration Vancomycin HCl 1,000 mg/ 250 mls @ 125 mls/hr 02/08/21 22:00 02/10/21 14:11 Sodium Chloride IVPB 125 mls/hr Q8H ALEJO Administration Propofol 1,000 mg/ IV Solution 100 mls @ 0 mls/hr 02/08/21 16:15 02/10/21 19:49 IV 40 mcg/kg/min .Q0M ALEJO 13.128 mls/hr Titration Protocol Titrate Piperacillin Sod/Tazobactam 100 mls @ 25 mls/hr 02/09/21 16:00 02/10/21 15:58 Sod 3.375 gm/ Sodium Chloride IVPB 25 mls/hr Q8HR ALEJO Administration Sodium Chloride 1,000 mls @ 50 mls/hr 02/09/21 18:30 02/10/21 14:17 Saline 0.9% IV 50 mls/hr .Q20H ALEJO Administration Lacosamide 50 mg/ Sodium 55 mls @ 100 mls/hr 02/10/21 21:00 Chloride IVPB BID ALEJO Lorazepam 1 mg 02/08/21 19:37 Lorazepam 2 Mg/Ml Inj IV Q2HR PRN CIWA 8 or 9 Lorazepam 1 mg 02/08/21 19:37 02/10/21 11:14 Lorazepam 2 Mg/Ml Inj IV 1 mg Q1HR PRN Administration CIWA 10 to 15 Midodrine 5 mg 02/08/21 21:00 02/10/21 08:14 Midodrine 5 Mg Tab PEG/G-TUBE 5 mg BID ALEJO Administration Miscellaneous Information 1 each 02/10/21 04:39 Potassium Replacement Protocol 1 Each Misc MISCELLANE DAILY PRN Per Protocol Protocol Naloxone HCl 0.2 mg 02/08/21 13:19 Naloxone 0.4 Mg/Ml 1 Ml Vial IV Q2M PRN Opioid Reversal Pantoprazole Sodium 40 mg 02/08/21 21:00 02/10/21 08:14 Pantoprazole 40 Mg/10 Ml Vial IVP 40 mg BID ALEJO Administration Sodium Chloride 1 gm 02/09/21 09:00 02/10/21 08:14 Sodium Chloride Tab 1 Gm Tab PEG/G-TUBE 1 gm DAILY ALEJO Administration Thiamine HCl 100 mg 02/08/21 16:30 02/10/21 08:14 Thiamine 100 Mg/Ml 2 Ml Vial IVP 100 mg DAILY ALEJO Administration Objective - Vital Signs Vital signs: Vital Signs Temp 99.5 F 02/10/21 16:00 Pulse 100 02/10/21 19:00 Resp 12 02/10/21 19:00 BP 114/75 02/10/21 19:00 Pulse Ox 100 02/10/21 19:00 Intake & Output 02/10/21 02/10/21 02/11/21 06:59 18:59 06:59 Intake Total 381.978 4997.562 109.336 Output Total 1455 980 100 Balance -534.519 553.562 9.336 Weight 54.7 kg Intake: IV 80 Sodium Chloride 0.9% 1, 80 000 ml @ 80 mls/hr IV . [id number] ALEJO Rx#:[id number] Intake, IV Titration 213.159 1673.562 69.336 Amount Dexmedetomidine/0.9% NaCl 60.481 57.013 (Pmx) 400 mcg In Empty Bag 1 bag @ Titrate IV . Q0M ALEJO Rx#:[id number] Lacosamide IV 100 mg In 50 Sodium Chloride 0.9% 50 ml @ 100 mls/hr IVPB BID ALEJO Rx#:[id number] Piperacillin-Tazobactam 3 100 .375 gm In Sodium Chloride 0.9% 100 ml @ 25 mls/hr IVPB Q8HR ALEJO Rx# :[id number] Sodium Chloride 0.9% 1, 500 900 50 000 ml @ 50 mls/hr IV . Q20H ALEJO Rx#:[id number] propofoL 1,000 mg In 46.549 19.336 Empty Bag 1 bag @ Titrate IV .Q0M ALEJO Rx#: [id number] Tube Feeding 210 290 40 Other 70 90 Output: Urine 1455 980 100 Other: Voiding Method Indwelling Catheter Indwelling Catheter # Bowel Movements 1 - Exam -GENERAL: The patient is sedated and on the vent via his tracheostomy HEENT: Pupils are round and equally reacting to light. EOMI. No scleral icterus. No conjunctival pallor. Normocephalic, atraumatic. No pharyngeal erythema. No thyromegaly. CARDIOVASCULAR: S1 and S2 present. No murmurs, rubs, or gallops. -PULMONARY: Chest is clear to auscultation, no wheezing or crackles. tracheostomy is in place ABDOMEN: Soft, nontender, nondistended, normoactive bowel sounds. No palpable organomegaly. MUSCULOSKELETAL: No joint swelling or deformity. EXTREMITIES: No cyanosis, clubbing, or pedal edema. NEUROLOGICAL: Gross neurological examination did not reveal any focal deficits. SKIN: No rashes. no petechiae. - Labs CBC & Chem 7: 02/10/21 03:28 02/10/21 07:53 Labs: Abnormal Lab Results - Last 24 Hours (Table) 02/09/21 02/10/21 02/10/21 Range/Units 22:58 03:28 03:28 RBC 3.73 L (4.30-5.90) m/uL Hct 36.5 L (39.0-53.0) % MCH 35.8 H (25.0-35.0) pg Plt Count 22 L (150-450) k/uL Lymphocytes # 0.4 L (1.0-4.8) k/uL D-Dimer (<0.60) mg/L FEU Potassium 3.1 L (3.5-5.1) mmol/L BUN 4 L (9-20) mg/dL Creatinine 0.38 L (0.66-1.25) mg/dL Glucose 120 H (74-99) mg/dL POC Glucose (mg/dL) 128 H (75-99) mg/dL Albumin 3.4 L (3.5-5.0) g/dL 02/10/21 02/10/21 02/10/21 Range/Units 11:43 13:09 17:40 RBC (4.30-5.90) m/uL Hct (39.0-53.0) % MCH (25.0-35.0) pg Plt Count (150-450) k/uL Lymphocytes # (1.0-4.8) k/uL D-Dimer 2.34 H (<0.60) mg/L FEU Potassium (3.5-5.1) mmol/L BUN (9-20) mg/dL Creatinine (0.66-1.25) mg/dL Glucose (74-99) mg/dL POC Glucose (mg/dL) 140 H 145 H (75-99) mg/dL Albumin (3.5-5.0) g/dL Microbiology - Last 24 Hours (Table) 02/09/21 17:03 Blood Culture - Preliminary Blood No Growth after 24 hours 02/09/21 03:25 Gram Stain - Preliminary Sputum Sputum Culture - Preliminary Gram Neg Bacilli 02/08/21 19:34 Urine Culture - Final Urine,Catheterized Assessment and Plan Assessment: Altered mental status, most likely metabolic encephalopathy, seizure is suspected and neurologist been consulted. Possible Aspiration pneumonia Acute hypoxic respiratory failure secondary to above Severe sepsis Possible alcohol withdrawal Thrombocytopenia History of carcinoma of the tongue, squamous cell carcinoma Mild to moderate protein calorie malnutrition Plan: This is a 60 years old male who presents with severe sepsis and altered mental status and possible pneumonia. Continue with broad-spectrum antibiotics in the form of Zosyn and IV vancomycin. Continue with CIWA protocol. Continue with vimpat as per neurology consult. Pulmonary/critical care team consult. Hematology consult for severe thrombocytopenia, rule out DIC. Monitor platelet count Follow-up sputum culture and Labs and medication were reviewed.. Continue same treatment. Continue with symptomatic treatment. Resume home medication. Monitor lytes and vitals. DVT and GI prophylaxis. Further recommendationsas per clinical course of the pa sara DVT prophylaxis: Subcutaneous heparin GI Prophylaxis: Ppi Prognosis is guarded
[2021-02-10] MEDS: LACOSAMIDE IV 50 MG in SODIUM CHLORIDE 0.9% 50 ML IVPB SCH (21:20)
[2021-02-10 23:59] LABS: Glucose,Whole Blood 79 mg/dL (75-99)
[2021-02-11 05:03] LABS: Basophils % (A) 0 %; Eosinophils # (A) 0.1 k/uL (0-0.7); Eosinophils % (A) 1 %; HCT 33.7 % (39.0-53.0); HGB 11.6 gm/dL (13.0-17.5); Lymphocytes % (A) 10 %; MCH 33.2 pg (25.0-35.0); MCHC 34.6 g/dL (31.0-37.0); Mean Platelet Volume 10.7; Monocytes # (A) 0.4 k/uL (0-1.0); Monocytes % (A) 4 %; Neutrophils # (A) 8.7 k/uL (1.3-7.7); Neutrophils % (A) 84 %; RDW 12.9 % (11.5-15.5); WBC 10.4 k/uL (3.8-10.6)
[2021-02-11 05:17] LABS: ALT 16 U/L (4-49); AST 27 U/L (17-59); African American GFR (CKD) >90 (>60 ml/min/1.73 sqM); Albumin 3.1 g/dL (3.5-5.0); Alkaline Phosphatase 68 U/L (38-126); Anion Gap 6 mmol/L; Blood Urea Nitrogen 7 mg/dL (9-20); Calcium 8.5 mg/dL (8.4-10.2); Carbon Dioxide 28 mmol/L (22-30); Chloride 106 mmol/L (98-107); Glucose 116 mg/dL (74-99); Non-African American GFR(CKD) >90 (>60 ml/min/1.73 sqM); Sodium 140 mmol/L (137-145); Total Bilirubin 0.8 mg/dL (0.2-1.3)
[2021-02-11 05:32] LABS: Potassium 2.5 mmol/L (3.5-5.1)
[2021-02-11 05:42] LABS: Platelet Count 33 k/uL (150-450)
[2021-02-11 05:44] LABS: ABG Base Excess 7.7 mmol/L; ABG HCO3 31 mmol/L (21-25); ABG Oxygen Saturation 96.3 % (94-97); ABG PCO2 38 mmHg (35-45); ABG PH 7.51 (7.35-7.45); ABG PO2 73 mmHg (83-108); ABG TCO2 32 mmol/L (19-24); Allen Test Performed? Yes
--- NOTE | 2021-02-11 05:47 | CONS ---
CONSULTATION DATE OF SERVICE: 02/10/2021 REASON FOR CONSULTATION: Pneumonia. HISTORY OF PRESENT ILLNESS: The patient is a 60-year-old male with a past medical history significant for squamous cell carcinoma of the tongue in this patient status post tracheostomy and PEG tube placement for feeding. 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 The patient presented to the [facility] ER on February 08 after the patient was found unresponsive by his . There is no clear history of any fall or seizure activity. The patient did have poor respiratory effort and did require air bag by EMS en route to the emergency room. The patient was found to be hypoxic and ended up getting intubated to protect his airway. The patient did have hypothermia on presentation to the hospital with a fever of 100.6 degrees Fahrenheit today. The patient is hemodynamically, stable not on pressor support. The patient is tachycardia. FiO2 is currently 40%. No significant purulent secretions through the ET or diarrhea reported by nursing staff. The patient did have a normal white count on admission, subsequently yesterday down to 8000 today. The patient did have a normal BUN and creatinine and electrolytes normal. Liver enzymes are normal. Blood culture has been coagulase negative, Staphylococcal species, repeat so far negative. Sputum showing gram-negative. Patient is currently being treated with Zosyn and vancomycin. Infectious Disease was consulted for further management of antibiotic therapy. All of the information has been obtained from review of the chart, talking to nursing staff as the patient is currently on the vent and unable to provide any history. Patient's chest x-ray this morning shows right lower lung air space opacity less prominent than on the prior exam. REVIEW OF SYSTEMS: Positive points have been mentioned in HPI. Complete review could not be obtained as the patient is on the vent. PAST MEDICAL HISTORY: Squamous cell carcinoma of the tongue. The patient did have history of recurrent pneumonia. History of COPD, gastroesophageal reflux disease, and IA and seizure disorder. PAST SURGICAL HISTORY: Heart catheterization reconstruction, tracheostomy and a PEG tube placement. SOCIAL HISTORY: Current everyday smoker. FAMILY HISTORY: No pertinent findings noticed. ALLERGIES: No known drug allergies. MEDICATIONS: The patient is currently on vancomycin, pharmacy to dose. He is on vitamin B1, propofol, Zosyn, Protonix, Narcan, Ativan, Lorazepam, DuoNeb and Tylenol. PHYSICAL EXAMINATION: Blood pressure is 127/83 with a pulse of 105, temperature of 98.4, T-max 100.6. The patient is currently 100% on 40% FiO2. General description is a middle-aged male lying in bed in no distress. No tachypnea or accessory muscles of respiration use. HEENT: Examination shows no pallor or scleral icterus. Oral mucous membranes dry. NECK: Trach site is currently clean. No significant secretions. LUNGS unlabored breathing, decreased intensity of breath sounds. No wheeze or crackles. HEART S1, S2. Regular rate and rhythm. ABDOMEN: Soft, no tenderness. No guarding. No rigidity. EXTREMITIES: No edema of the feet. SKIN: No rash or mass palpable. NEUROLOGICAL: The patient is currently sedated on the vent, nonverbal. Orientation could not be determined. LABS: Hemoglobin 13.8, white count 6.3, 10.2 yesterday. BUN of 4, creatinine 0.32. Electrolytes are normal, liver enzymes normal. Sputum showing Gram-negative. Blood culture with coag-negative repeat blood culture on February 09 has been negative so far. DIAGNOSTIC IMPRESSION AND PLAN: 1. Patient admitted to the hospital with weakness, mental status changes, hypoxemia with right lower lung infiltrate concerning for pneumonia likely gram-negative and the sputum has confirmed that is showing gram-negative with ID sensitivity pending. 2. The patient with positive blood culture with coagulase negative Staph and strep, likely skin contaminant, as the patient has no clinical features to go along with it. PLAN: 1. Discontinue vancomycin to decrease risk of nephrotoxicity. 2. We will keep the patient on Zosyn 3.375 g q.8 hours. 3. We will follow on his clinical condition and culture to further adjust medication if needed. Thank you for this consultation. Will follow this patient along with you. MMODL / IJN: [id number] /
[2021-02-11] MEDS: POTASSIUM BICARBONATE/CIT AC 20 MEQ TABLET.EFF NG-TUBE SCH ×4 (06:20→23:07)
[2021-02-11] MEDS: IPRATROPIUM-ALBUTEROL 3 ML NEB INHALATION SCH ×3 (06:59→19:30)
--- NOTE | 2021-02-11 07:30 | XR ---
EXAMINATION TYPE: XR chest 1V portable DATE OF EXAM: 02/11/2021 COMPARISON: 02/10/2021 HISTORY: Tube placement TECHNIQUE: Single frontal view of the chest is obtained. FINDINGS: The tracheostomy and left subclavian line are unchanged. Lungs are grossly clear. Previously seen right lower lung zone airspace disease is not seen on the cu rrent study. Cardiac silhouette is not enlarged. IMPRESSION: Previously seen right lower lung zone airspace disease is not seen on the current study.
[2021-02-11] MEDS: PIPERACILLIN-TAZOBACTAM 3.375 GM in SODIUM CHLORIDE 0.9% 100 ML IVPB SCH ×3 (07:58→23:07)
[2021-02-11] MEDS: SODIUM CHLORIDE TAB 1 GM TAB PEG/G-TUBE SCH (07:58)
[2021-02-11] MEDS: PANTOPRAZOLE 40 MG/10 ML VIAL IVP SCH ×2 (07:58→20:35)
[2021-02-11] MEDS: MIDODRINE 5 MG TAB PEG/G-TUBE SCH ×2 (07:59→20:35)
[2021-02-11] MEDS: CYANOCOBALAMIN 500 MCG TAB PEG/G-TUBE SCH (07:59)
[2021-02-11] MEDS: THIAMINE 100 MG/ML 2 ML VIAL IVP SCH (07:59)
[2021-02-11] MEDS: LACOSAMIDE IV 50 MG in SODIUM CHLORIDE 0.9% 50 ML IVPB SCH ×2 (08:14→21:43)
[2021-02-11] MEDS: DEXMEDETOMIDINE/0.9% NACL(PMX) 400 MCG in EMPTY BAG 1 BAG IV SCH ×2 (09:18→21:57)
[2021-02-11] MEDS: POTASSIUM BICARBONATE/CIT AC 20 MEQ TABLET.EFF PO SCH (10:46)
[2021-02-11] MEDS: SODIUM CHLORIDE 0.9% 1,000 ML IV SCH (10:50)
[2021-02-11 11:35] LABS: Glucose,Whole Blood 130 mg/dL (75-99)
--- NOTE | 2021-02-11 12:19 | P.PN ---
Subjective This is a pleasant 60 years old male with multiple medical problems. Presents with altered mental status, metabolic encephalopathy is suspected, aspiration pneumonia is also in the differential diagnosis, neurology on the case also with seizure was also suspected. Patient is currently an event that 150 mg twice a day. EEG shows no epileptiform activity. CT of the brain is negative for acute process. CT of the cervical spine showing no acute fracture. However patient looks to have severe sepsis. He is currently on Zosyn and IV vancomycin. Sputum culture is growing gram-negative bacilli and final result is pending Toilet team R following the case for low platelet count which is suspected to be multifactorial secondary to alcohol, chronic ITP and liver disease. 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 Today patient breathing situation deteriorated and he had to be placed back on vent and sedated. Patient has tracheostomy 02/11/2021 Today's patient is still in the ICU. When I saw him in the morning he was on mechanical ventilation through the tracheostomy with PEEP of 5 and FiO2 of 40%, he was sedated on propofol so he could not participate in conversation. R on he was switched to trach collar at 8 L/m of oxygen. His vitals looks stable but he has low-grade temperature of 99.9 today. Platelet count improved to 33K Chest x-ray showing improvement infiltrate on the right lower lung His sputum culture is growing sensitive for Proteus and IV vancomycin was stopped and to continue with his [facility] Neurology service on the case for altered mental status and switch him to vimpat 50 mg twice daily intravenously. CT of the brain and cervical spine is negative. EEG no obvious epileptiform se izure. Review of system: N/a Active Medications Generic Name Dose Route Start Last Admin Trade Name Freq PRN Reason Stop Dose Admin Acetaminophen 650 mg 02/08/21 13:19 Acetaminophen Suppository 650 Mg Supp RECTAL Q4HR PRN Fever And/ Or Mild Pain Albuterol/Ipratropium 3 ml 02/08/21 20:00 02/11/21 06:59 Ipratropium-Albuterol 3 Ml Neb INHALATION 3 ml RT-TID ALEJO Administration Albuterol/Ipratropium 3 ml 02/08/21 19:25 Ipratropium-Albuterol 3 Ml Neb INHALATION RT-TID PRN Shortness Of Breath Or Wheezing Cyanocobalamin 500 mcg 02/09/21 09:00 02/11/21 07:59 Cyanocobalamin 500 Mcg Tab PEG/G-TUBE 500 mcg DAILY ALEJO Administration Propofol 1,000 mg/ IV Solution 100 mls @ 0 mls/hr 02/08/21 16:15 02/11/21 09:18 IV 0 mcg/kg/min .Q0M ALEJO 0 mls/hr Titration Protocol Titrate Piperacillin Sod/Tazobactam 100 mls @ 25 mls/hr 02/09/21 16:00 02/11/21 07:58 Sod 3.375 gm/ Sodium Chloride IVPB 25 mls/hr Q8HR ALEJO Administration Sodium Chloride 1,000 mls @ 50 mls/hr 02/09/21 18:30 02/11/21 10:50 Saline 0.9% IV 50 mls/hr .Q20H ALEJO Administration Lacosamide 50 mg/ Sodium 55 mls @ 100 mls/hr 02/10/21 21:00 02/11/21 08:14 Chloride IVPB 100 mls/hr BID ALEJO Administration Dexmedetomidine HCl 400 mcg/ 100 mls @ 0 mls/hr 02/11/21 09:00 02/11/21 09:18 IV Solution IV 02/12/21 08:53 0.4 mcg/kg/hr .Q0M ALEJO 5.68 mls/hr Administration Protocol Titrate Lorazepam 1 mg 02/08/21 19:37 02/10/21 21:47 Lorazepam 2 Mg/Ml Inj IV 1 mg Q2HR PRN Administration CIWA 8 or 9 Lorazepam 1 mg 02/08/21 19:37 02/10/21 11:14 Lorazepam 2 Mg/Ml Inj IV 1 mg Q1HR PRN Administration CIWA 10 to 15 Midodrine 5 mg 02/08/21 21:00 02/11/21 07:59 Midodrine 5 Mg Tab PEG/G-TUBE 5 mg BID ALEJO Administration Miscellaneous Information 1 each 02/10/21 04:39 Potassium Replacement Protocol 1 Each Misc MISCELLANE DAILY PRN Per Protocol Protocol Naloxone HCl 0.2 mg 02/08/21 13:19 Naloxone 0.4 Mg/Ml 1 Ml Vial IV Q2M PRN Opioid Reversal Pantoprazole Sodium 40 mg 02/08/21 21:00 02/11/21 07:58 Pantoprazole 40 Mg/10 Ml Vial IVP 40 mg BID ALEJO Administration Potassium Bicarbonate 20 meq 02/11/21 09:30 02/11/21 10:46 Potassium Bicarbonate/Cit Ac 20 Meq Tablet.Eff PO 20 meq DAILY ALEJO Administration Sodium Chloride 1 gm 02/09/21 09:00 02/11/21 07:58 Sodium Chloride Tab 1 Gm Tab PEG/G-TUBE 1 gm DAILY ALEJO Administration Thiamine HCl 100 mg 02/08/21 16:30 02/11/21 07:59 Thiamine 100 Mg/Ml 2 Ml Vial IVP 100 mg DAILY ALEJO Administration Objective - Vital Signs Vital signs: Vital Signs Temp 99.9 F H 02/11/21 08:00 Pulse 98 02/11/21 10:00 Resp 17 02/11/21 10:00 BP 116/72 02/11/21 10:00 Pulse Ox 98 02/11/21 10:00 Intake & Output 02/10/21 02/11/21 02/11/21 18:59 06:59 18:59 Intake Total 6093.153 8523.990 717.884 Output Total 980 905 360 Balance 553.562 646.990 357.884 Weight 56.8 kg Intake: IV 700 375 Lacosamide IV 50 mg In 50 50 Sodium Chloride 0.9% 50 ml @ 100 mls/hr IVPB BID [facility] Rx#:[id number] Piperacillin-Tazobactam 3 100 75 .375 gm In Sodium Chloride 0.9% 100 ml @ 25 mls/hr IVPB Q8HR ALEJO Rx# :[id number] Sodium Chloride 0.9% 1, 550 250 000 ml @ 50 mls/hr IV . Q20H [facility] Rx#:[id number] Intake, IV Titration 1153.562 221.990 42.884 Amount Dexmedetomidine/0.9% NaCl 57.013 (Pmx) 400 mcg In Empty Bag 1 bag @ Titrate IV . Q0M [facility] Rx#:[id number] Lacosamide IV 100 mg In 50 Sodium Chloride 0.9% 50 ml @ 100 mls/hr IVPB BID [facility] Rx#:[id number] Piperacillin-Tazobactam 3 100 .375 gm In Sodium Chloride 0.9% 100 ml @ 25 mls/hr IVPB Q8HR [facility] Rx# :[id number] Sodium Chloride 0.9% 1, 900 50 000 ml @ 50 mls/hr IV . Q20H ALEJO Rx#:[id number] propofoL 1,000 mg In 46.549 171.990 42.884 Empty Bag 1 bag @ Titrate IV .Q0M ALEJO Rx#: [id number] Tube Feeding 290 540 270 Other 90 90 30 Output: Urine 980 905 360 Other: Voiding Method Indwelling Catheter Indwelling Catheter Indwelling Catheter # Bowel Movements 1 - Exam -GENERAL: The patient is sedated and on the vent via his tracheostomy HEENT: Pupils are round and equally reacting to light. EOMI. No scleral icterus. No conjunctival pallor. Normocephalic, atraumatic. No pharyngeal erythema. No thyromegaly. CARDIOVASCULAR: S1 and S2 present. No murmurs, rubs, or gallops. -PULMONARY: Chest is clear to auscultation, no wheezing or crackles. tracheostomy is in place ABDOMEN: Soft, nontender, nondistended, normoactive bowel sounds. No palpable organomegaly. MUSCULOSKELETAL: No joint swelling or deformity. EXTREMITIES: No cyanosis, clubbing, or pedal edema. NEUROLOGICAL: Gross neurological examination did not reveal any focal deficits. SKIN: No rashes. no petechiae. - Labs CBC & Chem 7: 02/11/21 04:36 02/11/21 09:43 Labs: Abnormal Lab Results - Last 24 Hours (Table) 02/10/21 02/10/21 02/11/21 Range/Units 13:09 17:40 04:36 RBC 3.50 L (4.30-5.90) m/uL Hgb 11.6 L (13.0-17.5) gm/dL Hct 33.7 L (39.0-53.0) % Plt Count 33 L (150-450) k/uL Neutrophils # 8.7 H (1.3-7.7) k/uL D-Dimer 2.34 H (<0.60) mg/L FEU ABG pH (7.35-7.45) ABG pO2 (83-108) mmHg ABG HCO3 (21-25) mmol/L ABG Total CO2 (19-24) mmol/L Potassium (3.5-5.1) mmol/L BUN (9-20) mg/dL Creatinine (0.66-1.25) mg/dL Glucose (74-99) mg/dL POC Glucose (mg/dL) 145 H (75-99) mg/dL Total Protein (6.3-8.2) g/dL Albumin (3.5-5.0) g/dL 02/11/21 02/11/21 02/11/21 Range/Units 04:36 05:39 11:34 RBC (4.30-5.90) m/uL Hgb (13.0-17.5) gm/dL Hct (39.0-53.0) % Plt Count (150-450) k/uL Neutrophils # (1.3-7.7) k/uL D-Dimer (<0.60) mg/L FEU ABG pH 7.51 H (7.35-7.45) ABG pO2 73 L (83-108) mmHg ABG HCO3 31 H (21-25) mmol/L ABG Total CO2 32 H (19-24) mmol/L Potassium 2.5 L* (3.5-5.1) mmol/L BUN 7 L (9-20) mg/dL Creatinine 0.46 L (0.66-1.25) mg/dL Glucose 116 H (74-99) mg/dL POC Glucose (mg/dL) 130 H (75-99) mg/dL Total Protein 6.0 L (6.3-8.2) g/dL Albumin 3.1 L (3.5-5.0) g/dL Microbiology - Last 24 Hours (Table) 02/09/21 03:25 Gram Stain - Preliminary Sputum Sputum Culture - Preliminary Proteus mirabilis 02/09/21 17:03 Blood Culture - Preliminary Blood No Growth after 24 hours Assessment and Plan Assessment: Altered mental status, most likely metabolic encephalopathy, seizure is suspected and neurologist been consulted. Possible Aspiration pneumonia Acute hypoxic respiratory failure secondary to above Severe sepsis Possible alcohol withdrawal Thrombocytopenia History of carcinoma of the tongue, squamous cell carcinoma Mild to moderate protein calorie malnutrition Plan: This is a 60 years old male who presents with severe sepsis and altered mental status and possible pneumonia. Continue with broad-spectrum antibiotics in the form of Zosyn and discontinue IV vancomycin. Continue with CIWA protocol. Continue with vimpat as per neurology consult. Pulmonary/critical care team consult. Hematology consult for severe thrombocytopenia, rule out DIC. Monitor platelet count Labs and medication were reviewed.. Continue same treatment. Continue with symptomatic treatment. Resume home medication. Monitor lytes and vitals. DVT and GI prophylaxis. Further recommendationsas per clinical course of the patient DVT prophylaxis: Subcutaneous heparin GI Prophylaxis: Ppi Prognosis is guarded
--- NOTE | 2021-02-11 12:30 | P.PN ---
Subjective Progress Note Date: 02/11/21 Principal diagnosis: Acute hypoxic respiratory failure secondary to mental status change, possible acute metabolic encephalopathy suspect sepsis and suspect aspiration pneumonia. 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 His other medical history significant for COPD, seizure disorder, history of depression, history of falls, with right hip fracture and a surgical repair, and patient has multiple lung nodules that are being followed on an outpatient basis by Dr. Diaz since July 2020. Most recent computed tomography scan of the chest from all 12/18/2020 showed near complete resolution of the nodularity in the right lower lobe suggesting inflammatory rather than malignant abnormalities. Patient has a chronic tracheostomy tube in place, with an uncuffed #6 fenestrated trach, and patient is not usually on supplemental oxygen according to his . Patient is strict nothing by mouth at home according to the . He does have history of seizure disorder normally takes Lacosamide 50 mg twice a day per the PEG tube, in addition patient takes Ativan 1 mg daily as needed for anxiety, and Neurontin 300 mg 3 times a day. On 02/08/2021 patient was found unresponsive by his . She wasn't sure if patient had fallen or if he had a seizure although she denie d witnessing a seizure. In the ER EMS reported normal blood sugars and normal vitals. Patient did have poor respiratory effort he required to be airbag by EMS en route to the emergency department. Patient was afebrile on arrival, his oxygen saturation was 86%, his respiratory effort was poor. His uncuffed tracheostomy tube was changed for a coughed tracheostomy tube, and patient was placed on ventilator support. EEG showed normal sinus rhythm with a rate of 92 BPM with no acute ST or T-wave changes. Was QT prolongation noted. CBC was unremarkable, his platelet count was low at 36,000 however patient does have a history of thrombocytopenia, no leukocytosis, quite panel was negative, me tabolic panel showed mild hyponatremia with a serum sodium of 131, no evidence of urinary tract infection, urinalysis was negative, drug screen was negative, tox labs were negative, alvarez virus PCR was negative, influenza and RSV and rotavirus were all negative, CT of the brain and C-spine showed no acute process, chest x-ray showed right basilar airspace disease, patient was started on broad-spectrum antibiotic. Blood cultures have been sent. Patient's blood gas showed pO2 of 205, pCO2 40, pH of 7.32 this was done on FiO2 100%, and FiO2 has since been dropped down to 50%. Antibiotics in the form of cefepime and vancomycin were started, patient was given a total of 1 L and fluid boluses, and his maintenance IV fluids are infusing at a rate of 130 ML per hour. Neurology consultation has been requested, EEG is pending. Patient has been admitted to the intensive care unit where he woke up, he is strict to the ventilator, currently on assist control mode of ventilation with a rate of 12, tidal volume is 400, FiO2 50% and PEEP of 5. He is very agitated, was given 2 mg of IV Ativan, and he will be started on IV sedation, he is not following commands, however he is moving all 4 extremities. Patient was reevaluated today on 02/09/2021, remains in the ICU, intubated and mechanically ventilated. Patient is on assist control rate of 12, tidal volume 400 FiO2 40% PEEP of 5. ABG showed a pO2 of 80 pCO2 of 41 pH of 7.36. Patient is off propofol at present, he is awake, but restless and agitated, keeps thrashing in bed, does not follow any instructions except giving thumbs up using left thumb. When instructed to do so. Chest x-ray is showing worsening infiltrate in the right lower lobe, suspect aspiration pneumonia. Platelets are down to 29,000. Hematology is addressing the issue of his thrombocytopenia. Shunt may need to be transfused. Patient is not ready for weaning mostly because of his extreme agitation off propofol, hence I recommended that we start the patient on Precedex. WBC count is 16.2 hemoglobin is 14.6. Electrolytes are normal renal profile is normal. BUN is 5 creatinine is 0.59. Blood cultures are showing coagulase-negative staph and Streptococcus species. I possibly a contamination. Remains empirically on antibiotics in the form of cefepime and vancomycin. Chest x-ray clearly shows evidence of pneumonia will switch patient to Zosyn.. Patient was reevaluated today on 02/10/2021, remains in the ICU, tolerated extubation from mechanical ventilation yesterday, however he remains on trach collar at 40%. Patient is off Precedex. Not requiring much sedation except intermittent Ativan for agitation. Patient remains on tube feeds using Jevity at 30 mL per hour. Goal is 60. Patient remains on the CIWA protocol. Patient is awake, following simple instructions, no major change in the last 24 hours. Chest x-ray continues to show right lower lobe infiltrate consistent with aspiration pneumonia. CBC today is relatively normal basic metabolic profile is normal potassium is a bit low being corrected now 3.6. Patient was reevaluated today on 02/11/2021, remains in the ICU, he is back on mechanical ventilation, patient became extremely agitated and restless and Desaturating yesterday, hence we had to place him back on mechanical ventilation and on propofol drip. Remains on propofol, last night his dose went as high as 75 mcg/kg/m, now he is down to 40 mcg/kg/m. He is on assist control rate of 12 tidal volume 400 FiO2 40% PEEP of 5. ABG showed a pO2 of 93 pCO2 of 38 pH of 7.51. I am planning to discontinue propofol, place the patient on Precedex again, and try to get him off mechanical ventilation and try trach collar again. Chest x-ray showed improvement in his right basilar pneumonia. Patient is on Jevity via PEG tube, and he is tolerating feeding quite well. Potassium is low at 2.5, being corrected as per protocol. Renal profile is normal. Sputum cultures positive for Proteus mirabilis. Acid after all antibiotics except tetracycline patient is on Zosyn. Chest x-ray is showing improvement Objective - Vital Signs Vital signs: Vital Signs Temp 99.9 F H 02/11/21 08:00 Pulse 98 02/11/21 10:00 Resp 17 02/11/21 10:00 BP 116/72 02/11/21 10:00 Pulse Ox 98 02/11/21 10:00 Intake & Output 02/10/21 02/11/21 02/11/21 18:59 06:59 18:59 Intake Total 6661.833 8057.990 717.884 Output Total 980 905 360 Balance 553.562 646.990 357.884 Weight 56.8 kg Intake: IV 700 375 Lacosamide IV 50 mg In 50 50 Sodium Chloride 0.9% 50 ml @ 100 mls/hr IVPB BID [facility] Rx#:[id number] Piperacillin-Tazobactam 3 100 75 .375 gm In Sodium Chloride 0.9% 100 ml @ 25 mls/hr IVPB Q8HR [facility] Rx# :[id number] Sodium Chloride 0.9% 1, 550 250 000 ml @ 50 mls/hr IV . Q20H [facility] Rx#:[id number] Intake, IV Titration 1153.562 221.990 42.884 Amount Dexmedetomidine/0.9% NaCl 57.013 (Pmx) 400 mcg In Empty Bag 1 bag @ Titrate IV . Q0M [facility] Rx#:[id number] Lacosamide IV 100 mg In 50 Sodium Chloride 0.9% 50 ml @ 100 mls/hr IVPB BID [facility] Rx#:[id number] Piperacillin-Tazobactam 3 100 .375 gm In Sodium Chloride 0.9% 100 ml @ 25 mls/hr IVPB Q8HR [facility] Rx# :[id number] Sodium Chloride 0.9% 1, 900 50 000 ml @ 50 mls/hr IV . Q20H [facility] Rx#:[id number] propofoL 1,000 mg In 46.549 171.990 42.884 Empty Bag 1 bag @ Titrate IV .Q0M [facility] Rx#: [id number] Tube Feeding 290 540 270 Other 90 90 30 Output: Urine 980 905 360 Other: Voiding Method Indwelling Catheter Indwelling Catheter Indwelling Catheter # Bowel Movements 1 - Exam GENERAL EXAM: Revealed 60-year-old white male on mechanical ventilation, sedated, on propofol HEAD: Normocephalic/atraumatic. EENT: Tracheostomy is intact. Moist mucous membranes. Surgical changes noted on the tongue. PERRLA, EOMI, nonicteric. CHEST: No chest wall deformity. Symmetrical expansion. LUNGS: Diminished breath sounds, crackles at the bases. CVS: Normal S1 and S2, no gallops ABDOMEN: Soft nontender no megaly, PEG tube is intact. EXTREMITIES: No clubbing edema or cyanosis. SKIN: No rashes CENTRAL NERVOUS SYSTEM: Not assessed, patient is on propofol. Sedated. Psychiatric: Could not assess patient is on propofol. Sedated. - Labs CBC & Chem 7: 02/11/21 04:36 02/11/21 09:43 Labs: Abnormal Lab Results - Last 24 Hours (Table) 02/10/21 02/10/21 02/11/21 Range/Units 13:09 17:40 04:36 RBC 3.50 L (4.30-5.90) m/uL Hgb 11.6 L (13.0-17.5) gm/dL Hct 33.7 L (39.0-53.0) % Plt Count 33 L (150-450) k/uL Neutrophils # 8.7 H (1.3-7.7) k/uL D-Dimer 2.34 H (<0.60) mg/L FEU ABG pH (7.35-7.45) ABG pO2 (83-108) mmHg ABG HCO3 (21-25) mmol/L ABG Total CO2 (19-24) mmol/L Potassium (3.5-5.1) mmol/L BUN (9-20) mg/dL Creatinine (0.66-1.25) mg/dL Glucose (74-99) mg/dL POC Glucose (mg/dL) 145 H (75-99) mg/dL Total Protein (6.3-8.2) g/dL Albumin (3.5-5.0) g/dL 02/11/21 02/11/21 02/11/21 Range/Units 04:36 05:39 11:34 RBC (4.30-5.90) m/uL Hgb (13.0-17.5) gm/dL Hct (39.0-53.0) % Plt Count (150-450) k/uL Neutrophils # (1.3-7.7) k/uL D-Dimer (<0.60) mg/L FEU ABG pH 7.51 H (7.35-7.45) ABG pO2 73 L (83-108) mmHg ABG HCO3 31 H (21-25) mmol/L ABG Total CO2 32 H (19-24) mmol/L Potassium 2.5 L* (3.5-5.1) mmol/L BUN 7 L (9-20) mg/dL Creatinine 0.46 L (0.66-1.25) mg/dL Glucose 116 H (74-99) mg/dL POC Glucose (mg/dL) 130 H (75-99) mg/dL Total Protein 6.0 L (6.3-8.2) g/dL Albumin 3.1 L (3.5-5.0) g/dL Microbiology - Last 24 Hours (Table) 02/09/21 03:25 Gram Stain - Preliminary Sputum Sputum Culture - Preliminary Proteus mirabilis 02/09/21 17:03 Blood Culture - Preliminary Blood No Growth after 24 hours Assessment and Plan Assessment: Impression: Acute hypoxic respiratory failure secondary to acute metabolic encephalopathy, patient presented with unresponsiveness, mental status change, and was seems to be a right lower lobe pneumonia/aspiration pneumonia. Possible sepsis. Sputum cultures are positive for Proteus mirabilis. Patient remains on Zosyn Acute onset of altered mental status, Suspect alcohol withdrawal or possibly alcohol withdrawal seizures Chronic thrombocytopenia History of squamous cell carcinoma of the tongue History of chronic indwelling tracheostomy. History of chronic obstructive pulmonary disease. History of pulmonary nodule being followed by Dr. Diaz on outpatient basis. Seizure disorder. History of right hip fracture and right hemiarthroplasty History of depression History of coronary artery disease and previous [place] Recommendation: Continue ventilatory support, patient had to be placed back on mechanical ventilation yesterday. Continue Zosyn Continue nutritional support/enteral feeding via PEG tube. Neurology is addressing the neurological status. Continue CIWA protocol. Continue to monitor daily x-rays of the chest. Chest x-ray today showed improvement in his right lower lobe pneumonia. Continue GI and DVT prophylaxis We'll continue to monitor in the ICU. Daily interruption of sedation, patient will be likely placed on Precedex again. Critical care time is over 30 min Time with Patient: Greater than 30
[2021-02-11 14:04] VITALS: BMI 20.2
--- NOTE | 2021-02-11 16:16 | P.PN ---
Subjective Progress Note Date: 02/11/21 The patient was seen at bedside and per the patient's nurse and she stated that theseizure-like activity. The patient is on propofol IV drip 15mcg/kg/min since gets agitated. Continues to be on Vent. Objective - Vital Signs Vital signs: Vital Signs Temp 99.9 F H 02/11/21 12:00 Pulse 73 02/11/21 14:00 Resp 14 02/11/21 14:00 BP 127/76 02/11/21 14:00 Pulse Ox 98 02/11/21 14:52 Intake & Output 02/10/21 02/11/21 02/11/21 18:59 06:59 18:59 Intake Total 2272.639 0940.990 1077.884 Output Total 980 905 810 Balance 553.562 646.990 267.884 Weight 56.8 kg 56.8 kg Intake: IV 700 525 Lacosamide IV 50 mg In 50 50 Sodium Chloride 0.9% 50 ml @ 100 mls/hr IVPB BID [facility] Rx#:[id number] Piperacillin-Tazobactam 3 100 75 .375 gm In Sodium Chloride 0.9% 100 ml @ 25 mls/hr IVPB Q8HR [facility] Rx# :[id number] Sodium Chloride 0.9% 1, 550 400 000 ml @ 50 mls/hr IV . Q20H [facility] Rx#:[id number] Intake, IV Titration 1153.562 221.990 42.884 Amount Dexmedetomidine/0.9% NaCl 57.013 (Pmx) 400 mcg In Empty Bag 1 bag @ Titrate IV . Q0M [facility] Rx#:[id number] Lacosamide IV 100 mg In 50 Sodium Chloride 0.9% 50 ml @ 100 mls/hr IVPB BID [facility] Rx#:[id number] Piperacillin-Tazobactam 3 100 .375 gm In Sodium Chloride 0.9% 100 ml @ 25 mls/hr IVPB Q8HR [facility] Rx# :[id number] Sodium Chloride 0.9% 1, 900 50 000 ml @ 50 mls/hr IV . Q20H [facility] Rx#:[id number] propofoL 1,000 mg In 46.549 171.990 42.884 Empty Bag 1 bag @ Titrate IV .Q0M [facility] Rx#: [id number] Tube Feeding 290 540 450 Other 90 90 60 Output: Urine 980 905 810 Other: Voiding Method Indwelling Catheter Indwelling Catheter Indwelling Catheter # Bowel Movements 1 - Exam GENERAL: The patient is lying in bed and is not in acute distress. NEUROLOGICAL: Exam is limited since getting Ativan for CIWA and on IV propofol 15mcg/kg/min Higher mental function: The patient is drowsy but is awakeable and attempting to verbalize. He is able to follow simple commands (showing thumbs up). No neglect. Could not evaluate his verbal speech because of condition. Cranial nerves: The pupils are round, equal and reactive to light. Visual carrillo are full to threat throughout. Extraocular movement is tracking throughout the room and no nystagmus is noted. The facial strength is normal throughout. Motor: Gait is deferred. The strength is moving all extremities above gravity without focality. Normal tone. Is cachectic throughout. Plantars are mute downgoing bilaterally. - Labs CBC & Chem 7: 02/11/21 04:36 02/11/21 09:43 Labs: Abnormal Lab Results - Last 24 Hours (Table) 02/10/21 02/11/21 02/11/21 Range/Units 17:40 04:36 04:36 RBC 3.50 L (4.30-5.90) m/uL Hgb 11.6 L (13.0-17.5) gm/dL Hct 33.7 L (39.0-53.0) % Plt Count 33 L (150-450) k/uL Neutrophils # 8.7 H (1.3-7.7) k/uL ABG pH (7.35-7.45) ABG pO2 (83-108) mmHg ABG HCO3 (21-25) mmol/L ABG Total CO2 (19-24) mmol/L Potassium 2.5 L* (3.5-5.1) mmol/L BUN 7 L (9-20) mg/dL Creatinine 0.46 L (0.66-1.25) mg/dL Glucose 116 H (74-99) mg/dL POC Glucose (mg/dL) 145 H (75-99) mg/dL Total Protein 6.0 L (6.3-8.2) g/dL Albumin 3.1 L (3.5-5.0) g/dL 02/11/21 02/11/21 Range/Units 05:39 11:34 RBC (4.30-5.90) m/uL Hgb (13.0-17.5) gm/dL Hct (39.0-53.0) % Plt Count (150-450) k/uL Neutrophils # (1.3-7.7) k/uL ABG pH 7.51 H (7.35-7.45) ABG pO2 73 L (83-108) mmHg ABG HCO3 31 H (21-25) mmol/L ABG Total CO2 32 H (19-24) mmol/L Potassium (3.5-5.1) mmol/L BUN (9-20) mg/dL Creatinine (0.66-1.25) mg/dL Glucose (74-99) mg/dL POC Glucose (mg/dL) 130 H (75-99) mg/dL Total Protein (6.3-8.2) g/dL Albumin (3.5-5.0) g/dL Microbiology - Last 24 Hours (Table) 02/09/21 03:25 Gram Stain - Preliminary Sputum Sputum Culture - Preliminary Proteus mirabilis 02/09/21 17:03 Blood Culture - Preliminary Blood No Growth after 24 hours Assessment and Plan Assessment: * Encephalopathy. Unknown exact cause. Possibly alcohol withdrawl (alcohol level on presentation is <10) and medication effect (sedation)---Mentation i mproving * Episode of unresponsiveness with hypothermia. Unknown exact etiology. No leukocytosis, no fever and normal CRP, which seems unlikely meningoencephalitis. * Acute right lower lobe pneumonia possibly aspiration. * Acute hypoxic respiratory on mechanical ventilation * History of alcohol withdrawal seizures * Cervical spondylosis moderate to severe over C4-C5. * Chronic hyponatremia 131. 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 No Variable fracture. No acute intracranial abnormality seen. * CT cervical spine was reported as no acute fracture of the cervical spine. Similar moderate to advanced spondylosis change with a degenerative grade 2 enterolithiasis at C4-C5 and reversal of the cervical lordosis. Tracheostomy cannula. 7 mm nodularity along the posterior aspect of the right vocal cord. This could represent adherent mucous debris. Direct visualization when patient able to exclude a mucosal lesion. * Creatinine is 0.42, AST of 44 and ALT is 23, ammonia is 17, TSH is 2.350 which are all within normal limits. * EKG is reported as on determined rhythm. Low voltage QRS. Inferior infarct, age undetermined. Prolonged QT. Abnormal EKG. * An EEG on 02/08/2021 as an abnormal routine EEG. The generalized background slowing is consistent of moderate to severe encephalopathy. There are no focal slowing, epileptiform discharges or seizure on the EEG. Excessive fast activity is due to medication effect (Ativan). 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 * On Vimpat 50mg bid. * On Thiamine 100mg IV. Recommend to switching via med via PEG. * Will defer the rest of medical management the ICU and primary team. * On CIWA protocol and will defer managment to ICU and primary team. The plan is discussed with the patient's nurse. Will follow-up patient sporadically. Cedric Mitchell MD Neuro-Hospitalist Time with Patient: Less than 30
[2021-02-11 16:55] LABS: Hemoglobin A1C 4.8 % (4.0-6.0)
[2021-02-11 22:22] LABS: African American GFR (CKD) >90 (>60 ml/min/1.73 sqM); Anion Gap 6 mmol/L; Blood Urea Nitrogen 9 mg/dL (9-20); Calcium 8.7 mg/dL (8.4-10.2); Carbon Dioxide 33 mmol/L (22-30); Chloride 101 mmol/L (98-107); Glucose 121 mg/dL (74-99); Non-African American GFR(CKD) >90 (>60 ml/min/1.73 sqM); Sodium 140 mmol/L (137-145)
--- NOTE | 2021-02-11 23:38 | PN ---
PROGRESS NOTE DATE OF SERVICE: 02/11/2021 REASON FOR FOLLOWUP: Gram-negative pneumonia. INTERVAL HISTORY: Patient is afebrile. The patient has been extubated, currently on trach collar. The patient was slightly sleepy, lethargic and unable to provide any history. No nausea, vomiting, diarrhea or any other changes reported by nursing staff. PHYSICAL EXAMINATION: Blood pressure 133/90 with a pulse of 89, temperature 97.5. He is 98% on trach collar. General description is a middle-aged male lying in bed in no distress. Respiratory system: Unlabored breathing, decreased intensity of breath sounds, no wheeze. Heart S1, S2. Regular rate and rhythm. Abdomen soft, no tenderness. LABS: Hemoglobin is 11.8, white count 10.4, BUN of 7, creatinine 0.46. Sputum with Proteus mirabilis sensitive pathogen. DIAGNOSTIC IMPRESSION AND PLAN: 1. Patient with acute respiratory failure which is multifactorial in this patient who did have a component of pneumonia. Sputum with Proteus, possible aspiration etiology. Patient is covered with Zosyn to continue. 2. Positive blood culture with coagulase-negative Staph and strep, likely skin contamination. Repeat blood culture negative. No need for vancomycin. MMODL / IJN: [id number] /
[2021-02-12] MEDS: POTASSIUM BICARBONATE/CIT AC 20 MEQ TABLET.EFF PO SCH (02:15)
[2021-02-12] MEDS: POTASSIUM BICARBONATE/CIT AC 20 MEQ TABLET.EFF NG-TUBE SCH ×2 (02:16)
[2021-02-12 05:05] LABS: Basophils % (A) 0 %; Eosinophils # (A) 0.1 k/uL (0-0.7); Eosinophils % (A) 2 %; HGB 11.2 gm/dL (13.0-17.5); Lymphocytes # (A) 0.8 k/uL (1.0-4.8); Lymphocytes % (A) 11 %; MCH 34.2 pg (25.0-35.0); MCV 97.4 fL (80.0-100.0); Mean Platelet Volume 11.5; Monocytes # (A) 0.4 k/uL (0-1.0); Monocytes % (A) 5 %; Neutrophils # (A) 5.7 k/uL (1.3-7.7); Neutrophils % (A) 80 %; RBC 3.29 m/uL (4.30-5.90); RDW 12.7 % (11.5-15.5); WBC 7.1 k/uL (3.8-10.6)
[2021-02-12 05:21] LABS: ALT 16 U/L (4-49); AST 25 U/L (17-59); African American GFR (CKD) >90 (>60 ml/min/1.73 sqM); Albumin 3.3 g/dL (3.5-5.0); Alkaline Phosphatase 69 U/L (38-126); Anion Gap 4 mmol/L; Blood Urea Nitrogen 8 mg/dL (9-20); Calcium 8.7 mg/dL (8.4-10.2); Carbon Dioxide 33 mmol/L (22-30); Chloride 101 mmol/L (98-107); Glucose 114 mg/dL (74-99); Non-African American GFR(CKD) >90 (>60 ml/min/1.73 sqM); Potassium 3.7 mmol/L (3.5-5.1); Sodium 138 mmol/L (137-145); Total Bilirubin 0.9 mg/dL (0.2-1.3); Total Protein 6.2 g/dL (6.3-8.2)
[2021-02-12] MEDS ORDERED: POTASSIUM BICARBONATE/CIT AC 20 MEQ TABLET.EFF NG-TUBE SCH (06:00)
[2021-02-12 06:03] LABS: Platelet Count 35 k/uL (150-450)
[2021-02-12] MEDS: SODIUM CHLORIDE 0.9% 1,000 ML IV SCH (06:08)
--- NOTE | 2021-02-12 07:17 | XR ---
EXAMINATION TYPE: XR chest 1V portable DATE OF EXAM: 02/12/2021 COMPARISON: 02/11/2021 HISTORY: Tube placement TECHNIQUE: Single frontal view of the chest is obtained. FINDINGS: Lines and tubes are unchanged. Right basilar airspace disease has worsened. Cardiac silhouette is not enlarged. IMPRESSION: Right basilar airspace disease has worsened.
[2021-02-12] MEDS: IPRATROPIUM-ALBUTEROL 3 ML NEB INHALATION SCH ×3 (07:33→19:42)
[2021-02-12] MEDS: THIAMINE 100 MG/ML 2 ML VIAL IVP SCH (08:52)
[2021-02-12] MEDS: SODIUM CHLORIDE TAB 1 GM TAB PEG/G-TUBE SCH (08:52)
[2021-02-12] MEDS: CYANOCOBALAMIN 500 MCG TAB PEG/G-TUBE SCH (08:52)
[2021-02-12] MEDS: MIDODRINE 5 MG TAB PEG/G-TUBE SCH ×2 (08:52→20:53)
[2021-02-12] MEDS: PIPERACILLIN-TAZOBACTAM 3.375 GM in SODIUM CHLORIDE 0.9% 100 ML IVPB SCH (08:52)
[2021-02-12] MEDS: PANTOPRAZOLE 40 MG/10 ML VIAL IVP SCH ×2 (08:53→20:53)
[2021-02-12] MEDS: LACOSAMIDE IV 50 MG in SODIUM CHLORIDE 0.9% 50 ML IVPB SCH ×2 (11:13→21:35)
--- NOTE | 2021-02-12 11:27 | P.PN ---
Subjective Progress Note Date: 02/12/21 Principal diagnosis: Acute hypoxic respiratory failure secondary to mental status change, possible acute metabolic encephalopathy suspect sepsis and suspect aspiration pneumonia. 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 His other medical history significant for COPD, seizure disorder, history of depression, history of falls, with right hip fracture and a surgical repair, and patient has multiple lung nodules that are being followed on an outpatient basis by Dr. Diaz since July 2020. Most recent computed tomography scan of the chest from all 12/18/2020 showed near complete resolution of the nodularity in the right lower lobe suggesting inflammatory rather than malignant abnormalities. Patient has a chronic tracheostomy tube in place, with an uncuffed #6 fenestrated trach, and patient is not usually on supplemental oxygen according to his . Patient is strict nothing by mouth at home according to the . He does have history of seizure disorder normally takes Lacosamide 50 mg twice a day per the PEG tube, in addition patient takes Ativan 1 mg daily as needed for anxiety, and Neurontin 300 mg 3 times a day. On 02/08/2021 patient was found unresponsive by his . She wasn't sure if patient had fallen or if he had a seizure although she denie d witnessing a seizure. In the ER EMS reported normal blood sugars and normal vitals. Patient did have poor respiratory effort he required to be airbag by EMS en route to the emergency department. Patient was afebrile on arrival, his oxygen saturation was 86%, his respiratory effort was poor. His uncuffed tracheostomy tube was changed for a coughed tracheostomy tube, and patient was placed on ventilator support. EEG showed normal sinus rhythm with a rate of 92 BPM with no acute ST or T-wave changes. Was QT prolongation noted. CBC was unremarkable, his platelet count was low at 36,000 however patient does have a history of thrombocytopenia, no leukocytosis, quite panel was negative, me tabolic panel showed mild hyponatremia with a serum sodium of 131, no evidence of urinary tract infection, urinalysis was negative, drug screen was negative, tox labs were negative, alvarez virus PCR was negative, influenza and RSV and rotavirus were all negative, CT of the brain and C-spine showed no acute process, chest x-ray showed right basilar airspace disease, patient was started on broad-spectrum antibiotic. Blood cultures have been sent. Patient's blood gas showed pO2 of 205, pCO2 40, pH of 7.32 this was done on FiO2 100%, and FiO2 has since been dropped down to 50%. Antibiotics in the form of cefepime and vancomycin were started, patient was given a total of 1 L and fluid boluses, and his maintenance IV fluids are infusing at a rate of 130 ML per hour. Neurology consultation has been requested, EEG is pending. Patient has been admitted to the intensive care unit where he woke up, he is strict to the ventilator, currently on assist control mode of ventilation with a rate of 12, tidal volume is 400, FiO2 50% and PEEP of 5. He is very agitated, was given 2 mg of IV Ativan, and he will be started on IV sedation, he is not following commands, however he is moving all 4 extremities. Patient was reevaluated today on 02/09/2021, remains in the ICU, intubated and mechanically ventilated. Patient is on assist control rate of 12, tidal volume 400 FiO2 40% PEEP of 5. ABG showed a pO2 of 80 pCO2 of 41 pH of 7.36. Patient is off propofol at present, he is awake, but restless and agitated, keeps thrashing in bed, does not follow any instructions except giving thumbs up using left thumb. When instructed to do so. Chest x-ray is showing worsening infiltrate in the right lower lobe, suspect aspiration pneumonia. Platelets are down to 29,000. Hematology is addressing the issue of his thrombocytopenia. Shunt may need to be transfused. Patient is not ready for weaning mostly because of his extreme agitation off propofol, hence I recommended that we start the patient on Precedex. WBC count is 16.2 hemoglobin is 14.6. Electrolytes are normal renal profile is normal. BUN is 5 creatinine is 0.59. Blood cultures are showing coagulase-negative staph and Streptococcus species. I possibly a contamination. Remains empirically on antibiotics in the form of cefepime and vancomycin. Chest x-ray clearly shows evidence of pneumonia will switch patient to Zosyn.. Patient was reevaluated today on 02/10/2021, remains in the ICU, tolerated extubation from mechanical ventilation yesterday, however he remains on trach collar at 40%. Patient is off Precedex. Not requiring much sedation except intermittent Ativan for agitation. Patient remains on tube feeds using Jevity at 30 mL per hour. Goal is 60. Patient remains on the CIWA protocol. Patient is awake, following simple instructions, no major change in the last 24 hours. Chest x-ray continues to show right lower lobe infiltrate consistent with aspiration pneumonia. CBC today is relatively normal basic metabolic profile is normal potassium is a bit low being corrected now 3.6. Patient was reevaluated today on 02/11/2021, remains in the ICU, he is back on mechanical ventilation, patient became extremely agitated and restless and Desaturating yesterday, hence we had to place him back on mechanical ventilation and on propofol drip. Remains on propofol, last night his dose went as high as 75 mcg/kg/m, now he is down to 40 mcg/kg/m. He is on assist control rate of 12 tidal volume 400 FiO2 40% PEEP of 5. ABG showed a pO2 of 93 pCO2 of 38 pH of 7.51. I am planning to discontinue propofol, place the patient on Precedex again, and try to get him off mechanical ventilation and try trach collar again. Chest x-ray showed improvement in his right basilar pneumonia. Patient is on Jevity via PEG tube, and he is tolerating feeding quite well. Potassium is low at 2.5, being corrected as per protocol. Renal profile is normal. Sputum cultures positive for Proteus mirabilis. Acid after all antibiotics except tetracycline patient is on Zosyn. Chest x-ray is showing improvement Reevaluated today on 02/12/2021, patient remains in the ICU, however he is off mechanical ventilation, he is on trach collar at 35% FiO2. Patient was on Precedex until early this morning, and it was sure off at 3 AM. Remains on enteral feeding via PEG tube. Remains on IV fluid, 0.9 saline at 50 mL per hour. Patient remains on Zosyn for presumptive aspiration pneumonia. Seems to be doing well, his mentation seems to be more appropriate, patient seems to be less restless and agitated although he is off Precedex since 3 AM. Chest x-ray showed improvement of his pneumonia. CBC is relatively normal electrolytes and renal profile are normal. Objective - Vital Signs Vital signs: Vital Signs Temp 98.8 F 02/12/21 04:00 Pulse 102 H 02/12/21 09:00 Resp 17 02/12/21 09:00 BP 124/76 02/12/21 09:00 Pulse Ox 94 L 02/12/21 09:00 Intake & Output 02/11/21 02/12/21 02/12/21 18:59 06:59 18:59 Intake Total 0430.962 2009.694 320 Output Total 1035 2125 325 Balance 552.265 -514.306 -5 Weight 56.8 kg Intake: IV 725 750 200 Lacosamide IV 50 mg In 50 50 Sodium Chloride 0.9% 50 ml @ 100 mls/hr IVPB BID [facility] Rx#:[id number] Piperacillin-Tazobactam 3 75 100 100 .375 gm In Sodium Chloride 0.9% 100 ml @ 25 mls/hr IVPB Q8HR [facility] Rx# :[id number] Sodium Chloride 0.9% 1, 600 600 100 000 ml @ 50 mls/hr IV . Q20H [facility] Rx#:[id number] Intake, IV Titration 82.265 50.694 Amount Dexmedetomidine/0.9% NaCl 39.381 50.694 (Pmx) 400 mcg In Empty Bag 1 bag @ Titrate IV . Q0M [facility] Rx#:[id number] propofoL 1,000 mg In 42.884 Empty Bag 1 bag @ Titrate IV .Q0M [facility] Rx#: [id number] Tube Feeding 690 720 120 Other 90 90 Output: Urine 1035 2125 325 Other: Voiding Method Indwelling Catheter Indwelling Catheter Indwelling Catheter - Exam GENERAL EXAM: Revealed 60-year-old white male on on trach collar, in no distress. HEAD: Normocephalic/atraumatic. EENT: Tracheostomy is intact. Moist mucous membranes. Surgical changes noted on the tongue. PERRLA, EOMI, nonicteric. CHEST: No chest wall deformity. Symmetrical expansion. LUNGS: Diminished breath sounds, no rhonchi and no wheezes. CVS: Normal S1 and S2, no gallops ABDOMEN: Soft nontender no megaly, PEG tube is intact. EXTREMITIES: No clubbing edema or cyanosis. SKIN: No rashes CENTRAL NERVOUS SYSTEM: Alert and oriented 3, follows simple instructions. Psychiatric: Lunch mood and affect, otherwise normal mental status - Labs CBC & Chem 7: 02/12/21 04:34 02/12/21 04:34 Labs: Abnormal Lab Results - Last 24 Hours (Table) 02/11/21 02/11/21 02/12/21 Range/Units 11:34 21:26 04:34 RBC 3.29 L (4.30-5.90) m/uL Hgb 11.2 L (13.0-17.5) gm/dL Hct 32.0 L (39.0-53.0) % Plt Count 35 L (150-450) k/uL Lymphocytes # 0.8 L (1.0-4.8) k/uL Potassium 3.0 L (3.5-5.1) mmol/L Carbon Dioxide 33 H (22-30) mmol/L BUN (9-20) mg/dL Creatinine 0.40 L (0.66-1.25) mg/dL Glucose 121 H (74-99) mg/dL POC Glucose (mg/dL) 130 H (75-99) mg/dL Total Protein (6.3-8.2) g/dL Albumin (3.5-5.0) g/dL 02/12/21 Range/Units 04:34 RBC (4.30-5.90) m/uL Hgb (13.0-17.5) gm/dL Hct (39.0-53.0) % Plt Count (150-450) k/uL Lymphocytes # (1.0-4.8) k/uL Potassium (3.5-5.1) mmol/L Carbon Dioxide 33 H (22-30) mmol/L BUN 8 L (9-20) mg/dL Creatinine 0.36 L (0.66-1.25) mg/dL Glucose 114 H (74-99) mg/dL POC Glucose (mg/dL) (75-99) mg/dL Total Protein 6.2 L (6.3-8.2) g/dL Albumin 3.3 L (3.5-5.0) g/dL Microbiology - Last 24 Hours (Table) 02/09/21 03:25 Gram Stain - Final Sputum Sputum Culture - Final Proteus mirabilis Acinetobacter marcelina/haemol Beta Hemolytic Strep Group G 02/08/21 11:25 Blood Culture Gram Stain - Preliminary Blood Blood Culture - Preliminary Coagulase Negative Staph Enterococcus gallinarum 02/09/21 17:03 Blood Culture - Preliminary Blood No Growth after 48 hours Assessment and Plan Assessment: Impression: Acute hypoxic respiratory failure secondary to acute metabolic encephalopathy, patient presented with unresponsiveness, mental status change, and was seems to be a right lower lobe pneumonia/aspiration pneumonia. Possible sepsis. Sputum cultures are positive for Proteus mirabilis. Patient remains on Zosyn Acute onset of altered mental status, Suspect alcohol withdrawal or possibly alcohol withdrawal seizures Chronic thrombocytopenia History of squamous cell carcinoma of the tongue History of chronic indwelling tracheostomy. History of chronic obstructive pulmonary disease. History of pulmonary nodule being followed by Dr. Diaz on outpatient basis. Seizure disorder. History of right hip fracture and right hemiarthroplasty History of depression History of coronary artery disease and previous [place] Recommendation: Continue trach collar. Continue precautions for possible and potential I'll call withdrawal. Continue Zosyn Continue nutritional support/enteral feeding via PEG tube. Continue CIWA protocol. Continue to monitor in the ICU at least for the next 24 hours Continue GI and DVT prophylaxis We'll continue to follow. Time with Patient: Less than 30
[2021-02-12 11:38] LABS: Glucose,Whole Blood 118 mg/dL (75-99)
--- NOTE | 2021-02-12 12:51 | P.PN ---
Subjective Progress Note Date: 02/12/21 The patient seen at bedside and the he is off of the propofol and off of any IV sedation. Per the patient he has not had any seizure-like activity. He somewhat more wide awake today. Patient stated that he does not have seizure as underlying other than alcohol withdrawl seizures. Objective - Vital Signs Vital signs: Vital Signs Temp 98.8 F 02/12/21 04:00 Pulse 84 02/12/21 12:30 Resp 20 02/12/21 12:00 BP 123/80 02/12/21 12:00 Pulse Ox 93 L 02/12/21 12:00 Intake & Output 02/11/21 02/12/21 02/12/21 18:59 06:59 18:59 Intake Total 4896.486 9172.694 530 Output Total 1035 2125 575 Balance 552.265 -514.306 -45 Weight 56.8 kg 54.5 kg Intake: IV 725 750 350 Lacosamide IV 50 mg In 50 50 Sodium Chloride 0.9% 50 ml @ 100 mls/hr IVPB BID [facility] Rx#:[id number] Piperacillin-Tazobactam 3 75 100 100 .375 gm In Sodium Chloride 0.9% 100 ml @ 25 mls/hr IVPB Q8HR [facility] Rx# :[id number] Sodium Chloride 0.9% 1, 600 600 250 000 ml @ 50 mls/hr IV . Q20H [facility] Rx#:[id number] Intake, IV Titration 82.265 50.694 Amount Dexmedetomidine/0.9% NaCl 39.381 50.694 (Pmx) 400 mcg In Empty Bag 1 bag @ Titrate IV . Q0M [facility] Rx#:[id number] propofoL 1,000 mg In 42.884 Empty Bag 1 bag @ Titrate IV .Q0M [facility] Rx#: [id number] Tube Feeding 690 720 180 Other 90 90 Output: Urine 1035 2125 575 Other: Voiding Method Indwelling Catheter Indwelling Catheter Indwelling Catheter - Exam GENERAL: The patient is lying in bed and is not in acute distress. NEUROLOGICAL: Higher mental function: The patient is is awake, alert. Following commands appropriately. Per the nurse she place his voice box back. Cranial nerves: The pupils are round, equal and reactive to light. Visual carrillo are full to threat throughout. Extraocular movement is tracking throughout the room and no nystagmus is noted. The facial strength is normal throughout. Motor: Gait is deferred. The strength is moving all extremities above gravity without focality. Normal tone. Is cachectic throughout. Plantars are mute downgoing bilaterally. - Labs CBC & Chem 7: 02/12/21 04:34 02/12/21 04:34 Labs: Abnormal Lab Results - Last 24 Hours (Table) 02/11/21 02/12/21 02/12/21 Range/Units 21:26 04:34 04:34 RBC 3.29 L (4.30-5.90) m/uL Hgb 11.2 L (13.0-17.5) gm/dL Hct 32.0 L (39.0-53.0) % Plt Count 35 L (150-450) k/uL Lymphocytes # 0.8 L (1.0-4.8) k/uL Potassium 3.0 L (3.5-5.1) mmol/L Carbon Dioxide 33 H 33 H (22-30) mmol/L BUN 8 L (9-20) mg/dL Creatinine 0.40 L 0.36 L (0.66-1.25) mg/dL Glucose 121 H 114 H (74-99) mg/dL POC Glucose (mg/dL) (75-99) mg/dL Total Protein 6.2 L (6.3-8.2) g/dL Albumin 3.3 L (3.5-5.0) g/dL 02/12/21 Range/Units 11:36 RBC (4.30-5.90) m/uL Hgb (13.0-17.5) gm/dL Hct (39.0-53.0) % Plt Count (150-450) k/uL Lymphocytes # (1.0-4.8) k/uL Potassium (3.5-5.1) mmol/L Carbon Dioxide (22-30) mmol/L BUN (9-20) mg/dL Creatinine (0.66-1.25) mg/dL Glucose (74-99) mg/dL POC Glucose (mg/dL) 118 H (75-99) mg/dL Total Protein (6.3-8.2) g/dL Albumin (3.5-5.0) g/dL Microbiology - Last 24 Hours (Table) 02/09/21 03:25 Gram Stain - Final Sputum Sputum Culture - Final Proteus mirabilis Acinetobacter marcelina/haemol Beta Hemolytic Strep Group G 02/08/21 11:25 Blood Culture Gram Stain - Preliminary Blood Blood Culture - Preliminary Coagulase Negative Staph Enterococcus gallinarum 02/09/21 17:03 Blood Culture - Preliminary Blood No Growth after 48 hours Assessment and Plan Assessment: * Encephalopathy. Unknown exact cause. Possibly alcohol withdrawl (alcohol level on presentation is <10) and medication effect (sedation)---Mentation improve * Episode of unresponsiveness with hypothermia. Unknown exact etiology. No leukocytosis, no fever and normal CRP, which seems unlikely meningoencephalitis --possibly alcohol withdrawl * Acute right lower lobe pneumonia possibly aspiration. * Acute hypoxic respiratory on mechanical ventilation * History of alcohol withdrawal seizures * Cervical spondylosis moderate to severe over C4-C5. * Chronic hyponatremia 131. 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 No Variable fracture. No acute intracranial abnormality seen. * CT cervical spine was reported as no acute fracture of the cervical spine. Similar moderate to advanced spondylosis change with a degenerative grade 2 enterolithiasis at C4-C5 and reversal of the cervical lordosis. Tracheostomy cannula. 7 mm nodularity along the posterior aspect of the right vocal cord. This could represent adherent mucous debris. Direct visualization when patient able to exclude a mucosal lesion. * Creatinine is 0.42, AST of 44 and ALT is 23, ammonia is 17, TSH is 2.350 which are all within normal limits. * EKG is reported as on determined rhythm. Low voltage QRS. Inferior infarct, age undetermined. Prolonged QT. Abnormal EKG. * An EEG on 02/08/2021 as an abnormal routine EEG. The generalized background slowing is consistent of moderate to severe encephalopathy. There are no focal slowing, epileptiform discharges or seizure on the EEG. Excessive fast activity is due to medication effect (Ativan). 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 * On Vimpat 50mg bid. The patient is to follow-up with neurologist as outpatient and if no seizure when he cease alcohol then recommend discontinuing it. * On Thiamine 100mg IV, recommend to switching via med via PEG. * Will defer the rest of medical management the ICU and primary team. * On CIWA protocol and will defer managment to ICU and primary team. The plan is discussed with the patient's nurse. Will follow-up patient sporadically. Cedric Mitchell MD Neuro-Hospitalist Time with Patient: Less than 30
--- NOTE | 2021-02-12 13:49 | P.PN ---
Subjective Progress Note Date: 02/12/21 This is a pleasant 60 years old male with multiple medical problems. Presents with altered mental status, metabolic encephalopathy is suspected, aspiration pneumonia is also in the differential diagnosis, neurology on the case also with seizure was also suspected. Patient is currently an event that 150 mg twice a day. EEG shows no epileptiform activity. CT of the brain is negative for acute process. CT of the cervical spine showing no acute fracture. However patient looks to have severe sepsis. He is currently on Zosyn and IV vancomycin. Sputum culture is growing gram-negative bacilli and final result is pending Toilet team R following the case for low platelet count which is suspected to be multifactorial secondary to alcohol, chronic ITP and liver disease. 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 Today patient breathing situation deteriorated and he had to be placed back on vent and sedated. Patient has tracheostomy 02/11/2021 Today's patient is still in the ICU. When I saw him in the morning he was on mechanical ventilation through the tracheostomy with PEEP of 5 and FiO2 of 40%, he was sedated on propofol so he could not participate in conversation. R on he was switched to trach collar at 8 L/m of oxygen. His vitals looks stable but he has low-grade temperature of 99.9 today. Platelet count improved to 33K Chest x-ray showing improvement infiltrate on the right lower lung His sputum culture is growing sensitive for Proteus and IV vancomycin was stopped and to continue with his Zosyn Neurology service on the case for altered mental status and switch him to vimpat 50 mg twice daily intravenously. CT of the brain and cervical spine is negative. EEG no obvious epileptiform seizure. 02/12/2021 Patient is seen and evaluated in follow up this morning continues to be closely monitored in the ICU with multiple medical consultations are following. Patient is currently off sedation and mechanical ventilation an awake and alert and oriented 3. Patient does have a tracheostomy history and speaking valve was replaced and patient is able to converse with no difficulty. Platelets today are slightly improved at 35 and hematology has been consulted and pending. X- ray today shows right basilar airspace disease is actually worsened and patient continues on IV Zosyn. Sputum culture finalized showing Proteus mirabilis, acinetobacter marcelina/haemol, and beta-hemolytic strep group G. Infectious disease is following. Patient was also seen and evaluated by neurology and will follow as needed and recommends close outpatient follow-up with neurology and continue with Vimpat until discuss further in the outpatient setting as seizure- like activity may be most likely related to alcohol use. Review of systems: Constitutional: No reports of fatigue, fever, or chills Cardiovascular: No reports of chest pain or palpitations Respiratory: No reports of shortness of breath or cough GI: No reports of nausea, vomiting, or diarrhea : No reports of dysuria or retention Neurovascular: Reports generalized weakness All medications have been reviewed Active Medications Acetaminophen (Acetaminophen Suppository 650 Mg Supp) 650 mg RECTAL Q4HR PRN PRN Reason: Fever And/ Or Mild Pain Albuterol/Ipratropium (Ipratropium-Albuterol 3 Ml Neb) 3 ml INHALATION RT-TID [facility] Last Admin: 02/12/21 12:13 Dose: 3 ml Documented by: Albuterol/Ipratropium (Ipratropium-Albuterol 3 Ml Neb) 3 ml INHALATION RT-TID PRN PRN Reason: Shortness Of Breath Or Wheezing Cyanocobalamin (Cyanocobalamin 500 Mcg Tab) 500 mcg PEG/G-TUBE DAILY [facility] Last Admin: 02/12/21 08:52 Dose: 500 mcg Documented by: Propofol 1,000 mg/ IV Solution 100 mls @ 0 mls/hr IV .Q0M [facility]; Protocol Last Titration: 02/11/21 09:18 Dose: 0 mcg/kg/min, 0 mls/hr Documented by: Piperacillin Sod/Tazobactam (Sod 3.375 gm/ Sodium Chloride) 100 mls @ 25 mls/hr IVPB Q8HR [facility] Last Admin: 02/12/21 08:52 Dose: 25 mls/hr Documented by: Sodium Chloride (Saline 0.9%) 1,000 mls @ 50 mls/hr IV .Q20H [facility] Last Admin: 02/12/21 06:08 Dose: 50 mls/hr Documented by: Lacosamide 50 mg/ Sodium (Chloride) 55 mls @ 100 mls/hr IVPB BID [facility] Last Admin: 02/12/21 11:13 Dose: 100 mls/hr Documented by: Lorazepam (Lorazepam 2 Mg/Ml Inj) 1 mg IV Q2HR PRN PRN Reason: CIWA 8 or 9 Last Admin: 02/10/21 21:47 Dose: 1 mg Documented by: Lorazepam (Lorazepam 2 Mg/Ml Inj) 1 mg IV Q1HR PRN PRN Reason: CIWA 10 to 15 Last Admin: 02/10/21 11:14 Dose: 1 mg Documented by: Midodrine (Midodrine 5 Mg Tab) 5 mg PEG/G-TUBE BID [facility] Last Admin: 02/12/21 08:52 Dose: 5 mg Documented by: Miscellaneous Information (Potassium Replacement Protocol 1 Each Misc) 1 each MISCELLANE DAILY PRN; Protocol PRN Reason: Per Protocol Naloxone HCl (Naloxone 0.4 Mg/Ml 1 Ml Vial) 0.2 mg IV Q2M PRN PRN Reason: Opioid Reversal Pantoprazole Sodium (Pantoprazole 40 Mg/10 Ml Vial) 40 mg IVP BID [facility] Last Admin: 02/12/21 08:53 Dose: 40 mg Documented by: Potassium Bicarbonate (Potassium Bicarbonate/Cit Ac 20 Meq Tablet.Eff) 20 meq PO DAILY [facility] Last Admin: 02/12/21 02:15 Dose: 20 meq Documented by: Sodium Chloride (Sodium Chloride Tab 1 Gm Tab) 1 gm PEG/G-TUBE DAILY [facility] Last Admin: 02/12/21 08:52 Dose: 1 gm Documented by: Thiamine HCl (Thiamine 100 Mg/Ml 2 Ml Vial) 100 mg IVP DAILY [facility] Last Admin: 02/12/21 08:52 Dose: 100 mg Documented by: Objective - Vital Signs Vital signs: Vital Signs Temp 98.8 F 02/12/21 04:00 Pulse 102 H 02/12/21 09:00 Resp 17 02/12/21 09:00 BP 124/76 02/12/21 09:00 Pulse Ox 94 L 02/12/21 09:00 Intake & Output 02/11/21 02/12/21 02/12/21 18:59 06:59 18:59 Intake Total 9187.658 2809.694 110 Output Total 1035 2125 125 Balance 552.265 -514.306 -15 Weight 56.8 kg Intake: IV 725 750 50 Lacosamide IV 50 mg In 50 50 Sodium Chloride 0.9% 50 ml @ 100 mls/hr IVPB BID [facility] Rx#:[id number] Piperacillin-Tazobactam 3 75 100 .375 gm In Sodium Chloride 0.9% 100 ml @ 25 mls/hr IVPB Q8HR [facility] Rx# :[id number] Sodium Chloride 0.9% 1, 600 600 50 000 ml @ 50 mls/hr IV . Q20H [facility] Rx#:[id number] Intake, IV Titration 82.265 50.694 Amount Dexmedetomidine/0.9% NaCl 39.381 50.694 (Pmx) 400 mcg In Empty Bag 1 bag @ Titrate IV . Q0M [facility] Rx#:[id number] propofoL 1,000 mg In 42.884 Empty Bag 1 bag @ Titrate IV .Q0M [facility] Rx#: [id number] Tube Feeding 690 720 60 Other 90 90 Output: Urine 1035 2125 125 Other: Voiding Method Indwelling Catheter Indwelling Catheter - Exam -GENERAL: The patient is awake, alert and oriented 2-3, recently removed from all sedation HEENT: Pupils are round and equally reacting to light. EOMI. No scleral icterus. No conjunctival pallor. Normocephalic, atraumatic. No pharyngeal erythema. No thyromegaly. CARDIOVASCULAR: S1 and S2 present. No murmurs, rubs, or gallops. -PULMONARY: Chest is clear to auscultation, no wheezing or crackles. tracheostomy is in place and speech valve replaced ABDOMEN: Soft, nontender, nondistended, normoactive bowel sounds. No palpable organomegaly. MUSCULOSKELETAL: No joint swelling or deformity. EXTREMITIES: No cyanosis, clubbing, or pedal edema. NEUROLOGICAL: Gross neurological examination did not reveal any focal deficits. SKIN: No rashes. no petechiae. - Labs CBC & Chem 7: 02/12/21 04:34 02/12/21 04:34 Labs: Abnormal Lab Results - Last 24 Hours (Table) 02/11/21 02/11/21 02/12/21 Range/Units 11:34 21:26 04:34 RBC 3.29 L (4.30-5.90) m/uL Hgb 11.2 L (13.0-17.5) gm/dL Hct 32.0 L (39.0-53.0) % Plt Count 35 L (150-450) k/uL Lymphocytes # 0.8 L (1.0-4.8) k/uL Potassium 3.0 L (3.5-5.1) mmol/L Carbon Dioxide 33 H (22-30) mmol/L BUN (9-20) mg/dL Creatinine 0.40 L (0.66-1.25) mg/dL Glucose 121 H (74-99) mg/dL POC Glucose (mg/dL) 130 H (75-99) mg/dL Total Protein (6.3-8.2) g/dL Albumin (3.5-5.0) g/dL 02/12/21 Range/Units 04:34 RBC (4.30-5.90) m/uL Hgb (13.0-17.5) gm/dL Hct (39.0-53.0) % Plt Count (150-450) k/uL Lymphocytes # (1.0-4.8) k/uL Potassium (3.5-5.1) mmol/L Carbon Dioxide 33 H (22-30) mmol/L BUN 8 L (9-20) mg/dL Creatinine 0.36 L (0.66-1.25) mg/dL Glucose 114 H (74-99) mg/dL POC Glucose (mg/dL) (75-99) mg/dL Total Protein 6.2 L (6.3-8.2) g/dL Albumin 3.3 L (3.5-5.0) g/dL Microbiology - Last 24 Hours (Table) 02/09/21 03:25 Gram Stain - Preliminary Sputum Sputum Culture - Preliminary Proteus mirabilis Beta Hemolytic Strep Group G 02/08/21 11:25 Blood Culture Gram Stain - Preliminary Blood Blood Culture - Preliminary Coagulase Negative Staph Enterococcus gallinarum 02/09/21 17:03 Blood Culture - Preliminary Blood No Growth after 48 hours Assessment and Plan Assessment: Altered mental status, most likely metabolic encephalopathy, seizure is suspected and neurologist evaluated the patient. Possible Aspiration pneumonia Acute hypoxic respiratory failure secondary to above Hypokalemia Severe sepsis Possible alcohol withdrawal Thrombocytopenia History of carcinoma of the tongue, squamous cell carcinoma Mild protein calorie malnutrition Full code Plan: This is a 60 years old male who presents with severe sepsis and altered mental status and possible pneumonia. Continue with broad-spectrum antibiotics in the form of Zosyn. Continue with CIWA protocol. Continue with vimpat as per neurology consult and will need close outpatient neurological follow-up to discuss the necessity of antiseizure medications. Patient will need to cease all alcohol intake as well. Neurology to follow as needed Pulmonary/critical care team following as patient continues to be in the ICU. Patient is off the mechanical vent and off all sedation and awake, alert and oriented 2-3. Nursing staff reports possible downgrade out of the ICU today. Hematology consult for severe thrombocytopenia, rule out DIC. Monitor platelet count, platelet slightly improved at 35 today. Labs and medication were reviewed.. Potassium was replaced and is currently 3.7 today. Continue same treatment. Continue with symptomatic treatment. Resume home medication. Monitor lytes and vitals. DVT and GI prophylaxis. Further recommendationsas per clinical course of the patient DVT prophylaxis: SCDs GI Prophylaxis: Ppi Prognosis is guarded
--- NOTE | 2021-02-12 16:40 | PN ---
PROGRESS NOTE DATE OF SERVICE: 02/12/2021 REASON FOR FOLLOWUP: Gram-negative pneumonia. INTERVAL HISTORY: Patient is currently afebrile. The patient is breathing comfortably. The patient denies having any chest pain. No shortness of breath. Occasional cough. No abdominal pain or diarrhea. PHYSICAL EXAMINATION: Blood pressure 121/79, pulse 74, temperature is 98.8. He is 95% on room air. General description is a middle-aged male lying in bed in no distress. Respiratory system: Unlabored breathing, decreased intensity of breath sounds. No wheeze. Heart: S1, S2. Regular rate and rhythm. Abdomen: Soft, no tenderness. Extremities: No edema. LABS: Sputum has been finalized with Proteus and Citrobacter. Blood culture repeat has been negative. DIAGNOSTIC IMPRESSION AND PLAN: 1. Patient acute respiratory failure which is multifactorial in this patient. Sputum showing Acinetobacter condition with Proteus. Antibiotic will be adjusted to Unasyn for better Acinetobacter coverage. 2. Patient with positive blood culture with coag-negative Staphylococcus, more likely contamination. Repeat cultures have been negative. MMODL / IJN: [id number] /
[2021-02-12] MEDS: AMPICILLIN-SULBACTAM 3 GM in SODIUM CHLORIDE 0.9% 100 ML IVPB SCH (20:53)
[2021-02-13 00:08] LABS: Glucose,Whole Blood 119 mg/dL (75-99)
[2021-02-13] MEDS ORDERED: MELATONIN 5 MG TABLET PO ONE (00:18)
[2021-02-13] MEDS: AMPICILLIN-SULBACTAM 3 GM in SODIUM CHLORIDE 0.9% 100 ML IVPB SCH ×4 (00:28→17:33)
[2021-02-13] MEDS: SODIUM CHLORIDE 0.9% 1,000 ML IV SCH (03:42)
[2021-02-13 05:47] LABS: Basophils % (A) 1 %; Eosinophils # (A) 0.2 k/uL (0-0.7); Eosinophils % (A) 2 %; HCT 31.1 % (39.0-53.0); HGB 10.7 gm/dL (13.0-17.5); Lymphocytes # (A) 1.1 k/uL (1.0-4.8); Lymphocytes % (A) 15 %; MCH 33.5 pg (25.0-35.0); MCHC 34.4 g/dL (31.0-37.0); MCV 97.5 fL (80.0-100.0); Mean Platelet Volume 10.8; Monocytes # (A) 0.6 k/uL (0-1.0); Monocytes % (A) 9 %; Neutrophils # (A) 5.1 k/uL (1.3-7.7); Neutrophils % (A) 71 %; RBC 3.19 m/uL (4.30-5.90); RDW 12.8 % (11.5-15.5); WBC 7.2 k/uL (3.8-10.6)
[2021-02-13 05:58] LABS: ALT 16 U/L (4-49); AST 32 U/L (17-59); African American GFR (CKD) >90 (>60 ml/min/1.73 sqM); Albumin 3.4 g/dL (3.5-5.0); Alkaline Phosphatase 65 U/L (38-126); Anion Gap 7 mmol/L; Blood Urea Nitrogen 12 mg/dL (9-20); Calcium 8.7 mg/dL (8.4-10.2); Carbon Dioxide 27 mmol/L (22-30); Chloride 104 mmol/L (98-107); Glucose 108 mg/dL (74-99); Non-African American GFR(CKD) >90 (>60 ml/min/1.73 sqM); Platelet Count 33 k/uL (150-450); Potassium 3.9 mmol/L (3.5-5.1); Sodium 138 mmol/L (137-145); Total Bilirubin 0.6 mg/dL (0.2-1.3); Total Protein 6.4 g/dL (6.3-8.2)
[2021-02-13 06:01] LABS: Glucose,Whole Blood 73 mg/dL (75-99)
--- NOTE | 2021-02-13 07:29 | XR ---
EXAMINATION TYPE: XR chest 1V portable DATE OF EXAM: 02/13/2021 HISTORY: Shortness of breath. COMPARISON: 02/12/2021 TECHNIQUE: Single view of the chest is submitted. FINDINGS: Demonstrated are scattered senescent parenchymal change. Patchy infiltrate right medial lung base persists without significant change. Tracheostomy tube and c entral venous access line unchanged. The heart is stable. Hilar and mediastinal structures are within normal limits. Degenerative changes are seen of the dorsal spine. IMPRESSION: 1. Stable chest.
[2021-02-13] MEDS: IPRATROPIUM-ALBUTEROL 3 ML NEB INHALATION SCH ×3 (07:45→19:57)
[2021-02-13] MEDS: CYANOCOBALAMIN 500 MCG TAB PEG/G-TUBE SCH (08:28)
[2021-02-13] MEDS: SODIUM CHLORIDE TAB 1 GM TAB PEG/G-TUBE SCH (08:28)
[2021-02-13] MEDS: POTASSIUM BICARBONATE/CIT AC 20 MEQ TABLET.EFF PO SCH (08:28)
[2021-02-13] MEDS: THIAMINE 100 MG TAB PEG/G-TUBE SCH (08:28)
[2021-02-13] MEDS: PANTOPRAZOLE 40 MG/10 ML VIAL IVP SCH ×2 (08:28→22:32)
[2021-02-13] MEDS: MIDODRINE 5 MG TAB PEG/G-TUBE SCH ×2 (08:29→22:28)
[2021-02-13] MEDS: lamoTRIgine 25 MG TAB PEG/G-TUBE SCH ×2 (08:29→22:28)
--- NOTE | 2021-02-13 09:40 | P.PN ---
Subjective Progress Note Date: 02/13/21 Patient seen at bedside and per has not had any further seizure like activity. Since being in the hospital he had no seizure. Patient is sitting at the recliner chair and the he stated that he is doing extremely well. He stated that he drinks on an off. Objective - Vital Signs Vital signs: Vital Signs Temp 97.6 F 02/13/21 04:00 Pulse 109 H 02/13/21 07:00 Resp 23 02/13/21 07:00 BP 129/86 02/13/21 07:00 Pulse Ox 95 02/13/21 00:00 Intake & Output 02/12/21 02/13/21 02/13/21 18:59 06:59 18:59 Intake Total 790 885 Output Total 1101 600 Balance -311 285 Weight 54.5 kg Intake: IV 550 825 Lacosamide IV 50 mg In 50 Sodium Chloride 0.9% 50 ml @ 100 mls/hr IVPB BID [facility] Rx#:[id number] Piperacillin-Tazobactam 3 100 .375 gm In Sodium Chloride 0.9% 100 ml @ 25 mls/hr IVPB Q8HR [facility] Rx# :[id number] Sodium Chloride 0.9% 1, 450 775 000 ml @ 50 mls/hr IV . Q20H [facility] Rx#:[id number] Tube Feeding 240 60 Output: Urine 1100 600 Stool 1 Other: Voiding Method Indwelling Catheter Indwelling Catheter # Voids 1 - Exam GENERAL: The patient is sitting in a reclining chair and is not in acute distress. NEUROLOGICAL: Higher mental function: The patient is is awake, alert, oriented to self, place and time. Following commands appropriately. No aphasia or neglect. Cranial nerves: The pupils are round, equal and reactive to light. Visual carrillo are full to threat throughout. Extraocular movement is tracking throughout the room and no nystagmus is noted. The facial strength is normal throughout. Minimal hoarseness to voice. Motor: Gait is deferred. The strength is moving all extremities above gravity without focality. Normal tone. Is cachectic throughout. Plantars are mute downgoing bilaterally. WORK-UP: * CT of the head is reported as that there may be mild scalp contusion along the posterior vertex. No Variable fracture. No acute intracranial abnormality seen. * CT cervical spine was reported as no acute fracture of the cervical spine. Similar moderate to advanced spondylosis change with a degenerative grade 2 enterolithiasis at C4-C5 and reversal of the cervical lordosis. Tracheostomy cannula. 7 mm nodularity along the posterior aspect of the right vocal cord. This could represent adherent mucous debris. Direct visualization when patient able to exclude a mucosal lesion. * Creatinine is 0.42, AST of 44 and ALT is 23, ammonia is 17, TSH is 2.350 which are all within normal limits. * EKG is reported as on determined rhythm. Low voltage QRS. Inferior infarct, age undetermined. Prolonged QT. Abnormal EKG. * An EEG on 02/08/2021 as an abnormal routine EEG. The generalized background slowing is consistent of moderate to severe encephalopathy. There are no focal slowing, epileptiform discharges or seizure on the EEG. Excessive fast activity is due to medication effect (Ativan). - Labs CBC & Chem 7: 02/13/21 04:58 02/13/21 04:58 Labs: Abnormal Lab Results - Last 24 Hours (Table) 02/12/21 02/13/21 02/13/21 Range/Units 11:36 00:06 04:58 RBC 3.19 L (4.30-5.90) m/uL Hgb 10.7 L (13.0-17.5) gm/dL Hct 31.1 L (39.0-53.0) % Plt Count 33 L (150-450) k/uL Creatinine (0.66-1.25) mg/dL Glucose (74-99) mg/dL POC Glucose (mg/dL) 118 H 119 H (75-99) mg/dL Albumin (3.5-5.0) g/dL 02/13/21 02/13/21 Range/Units 04:58 05:59 RBC (4.30-5.90) m/uL Hgb (13.0-17.5) gm/dL Hct (39.0-53.0) % Plt Count (150-450) k/uL Creatinine 0.41 L (0.66-1.25) mg/dL Glucose 108 H (74-99) mg/dL POC Glucose (mg/dL) 73 L (75-99) mg/dL Albumin 3.4 L (3.5-5.0) g/dL Microbiology - Last 24 Hours (Table) 02/08/21 11:25 Blood Culture Gram Stain - Final Blood Blood Culture - Final Staph hominis sub sp. hominis Enterococcus gallinarum 02/09/21 17:03 Blood Culture - Preliminary Blood No Growth after 72 hours 02/09/21 03:25 Gram Stain - Final Sputum Sputum Culture - Final Proteus mirabilis Acinetobacter marcelina/haemol Beta Hemolytic Strep Group G Assessment and Plan Assessment: * Encephalopathy. Unknown exact cause. Possibly alcohol withdrawl (alcohol level on presentation is <10) and medication effect (sedation)---Mentation improved * Episode of unresponsiveness with hypothermia. Unknown exact etiology. No leukocytosis, no fever and normal CRP, which seems unlikely meningoencephalitis --possibly alcohol withdrawl * Acute right lower lobe pneumonia possibly aspiration. * Acute hypoxic respiratory on mechanical ventilation * History of alcohol withdrawal seizures * Cervical spondylosis moderate to severe over C4-C5. * Chronic hyponatremia 131. 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 * I stopped the Vimpat since the patient does not have any known history of seizure and the start the patient on Lamictal which would help with his mood disorder (as well has anti-epileptic properties). Started the patient on Lamictal 25 mg 1 tablet twice a day and will try to titrated up gradually to 50 mg 1 tablet twice a day. By next week recommend going up to 25mg qam and 50mg qhs. By the following week after that recommend going up to 50mg 1 tab bid. * Will attempt to get 2.5 hours EEG as outpatient. * On Thiamine 100mg IV daily and switched over to via PEG tube. * Will defer the rest of medical management the ICU and primary team. * On CIWA protocol and will defer managment to ICU and primary team. * Will attempt to coorindate in him following-up with Dr. Kingston (epilepsy attending). The plan is discussed with the ICU attending. Will follow-up patient sporadically. Cedric Mitchell MD Neuro-Hospitalist Time with Patient: Less than 30
[2021-02-13 10:40] LABS: Glucose,Whole Blood 129 mg/dL (75-99)
--- NOTE | 2021-02-13 11:48 | P.PN ---
Subjective Progress Note Date: 02/13/21 Principal diagnosis: Acute hypoxic respiratory failure secondary to mental status change, possible acute metabolic encephalopathy suspect sepsis and suspect aspiration pneumonia. 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 His other medical history significant for COPD, seizure disorder, history of depression, history of falls, with right hip fracture and a surgical repair, and patient has multiple lung nodules that are being followed on an outpatient basis by Dr. Diaz since July 2020. Most recent computed tomography scan of the chest from all 12/18/2020 showed near complete resolution of the nodularity in the right lower lobe suggesting inflammatory rather than malignant abnormalities. Patient has a chronic tracheostomy tube in place, with an uncuffed #6 fenestrated trach, and patient is not usually on supplemental oxygen according to his . Patient is strict nothing by mouth at home according to the . He does have history of seizure disorder normally takes Lacosamide 50 mg twice a day per the PEG tube, in addition patient takes Ativan 1 mg daily as needed for anxiety, and Neurontin 300 mg 3 times a day. On 02/08/2021 patient was found unresponsive by his . She wasn't sure if patient had fallen or if he had a seizure although she den ied witnessing a seizure. In the ER EMS reported normal blood sugars and normal vitals. Patient did have poor respiratory effort he required to be airbag by EMS en route to the emergency department. Patient was afebrile on arrival, his oxygen saturation was 86%, his respiratory effort was poor. His uncuffed tracheostomy tube was changed for a coughed tracheostomy tube, and patient was placed on ventilator support. EEG showed normal sinus rhythm with a rate of 92 BPM with no acute ST or T-wave changes. Was QT prolongation noted. CBC was unremarkable, his platelet count was low at 36,000 however patient does have a history of thrombocytopenia, no leukocytosis, quite panel was negative, metabolic panel showed mild hyponatremia with a serum sodium of 131, no evidence of urinary tract infection, urinalysis was negative, drug screen was negative, tox labs were negative, alvarez virus PCR was negative, influenza and RSV and rotavirus were all negative, CT of the brain and C-spine showed no acute process, chest x-ray showed right basilar airspace disease, patient was started on broad-spectrum antibiotic. Blood cultures have been sent. Patient's blood gas showed pO2 of 205, pCO2 40, pH of 7.32 this was done on FiO2 100%, and FiO2 has since been dropped down to 50%. Antibiotics in the form of cefepime and vancomycin were started, patient was given a total of 1 L and fluid boluses, and his maintenance IV fluids are infusing at a rate of 130 ML per hour. Neurology consultation has been requested, EEG is pending. Patient has been admitted to the intensive care unit where he woke up, he is strict to the ventilator, currently on assist control mode of ventilation with a rate of 12, tidal volume is 400, FiO2 50% and PEEP of 5. He is very agitated, was given 2 mg of IV Ativa n, and he will be started on IV sedation, he is not following commands, however he is moving all 4 extremities. Patient was reevaluated today on 02/09/2021, remains in the ICU, intubated and mechanically ventilated. Patient is on assist control rate of 12, tidal volume 400 FiO2 40% PEEP of 5. ABG showed a pO2 of 80 pCO2 of 41 pH of 7.36. Patient is off propofol at present, he is awake, but restless and agitated, keeps thrashing in bed, does not follow any instructions except giving thumbs up using left thumb. When instructed to do so. Chest x-ray is showing worsening infiltrate in the right lower lobe, suspect aspiration pneumonia. Platelets are down to 29,000. Hematology is addressing the issue of his thrombocytopenia. Shunt may need to be transfused. Patient is not ready for weaning mostly because of his extreme agitation off propofol, hence I recommended that we start the patient on Precedex. WBC count is 16.2 hemoglobin is 14.6. Electrolytes are normal renal profile is normal. BUN is 5 creatinine is 0.59. Blood cultures are showing coagulase-negative staph and Streptococcus species. I possibly a contamination. Remains empirically on antibiotics in the form of cef epime and vancomycin. Chest x-ray clearly shows evidence of pneumonia will switch patient to Zosyn.. Patient was reevaluated today on 02/10/2021, remains in the ICU, tolerated extubation from mechanical ventilation yesterday, however he remains on trach collar at 40%. Patient is off Precedex. Not requiring much sedation except intermittent Ativan for agitation. Patient remains on tube feeds using Jevity at 30 mL per hour. Goal is 60. Patient remains on the CIWA protocol. Patient is awake, following simple instructions, no major change in the last 24 hours. Chest x-ray continues to show right lower lobe infiltrate consistent with aspiration pneumonia. CBC today is relatively normal basic metabolic profile is normal potassium is a bit low being corrected now 3.6. Patient was reevaluated today on 02/11/2021, remains in the ICU, he is back on mechanical ventilation, patient became extremely agitated and restless and Desaturating yesterday, hence we had to place him back on mechanical ventilation and on propofol drip. Remains on propofol, last night his dose went as high as 75 mcg/kg/m, now he is down to 40 mcg/kg/m. He is on assist control rate of 12 tidal volume 400 FiO2 40% PEEP of 5. ABG showed a pO2 of 93 pCO2 of 38 pH of 7.51. I am planning to discontinue propofol, place the patient on Precedex again, and try to get him off mechanical ventilation and try trach collar again. Chest x-ray showed improvement in his right basilar pneumonia. Patient is on Jevity via PEG tube, and he is tolerating feeding quite well. Potassium is low at 2.5, being corrected as per protocol. Renal profile is normal. Sputum cultures positive for Proteus mirabilis. Acid after all antibiotics except tetracycline patient is on Zosyn. Chest x-ray is showing improvement Reevaluated today on 02/12/2021, patient remains in the ICU, however he is off mechanical ventilation, he is on trach collar at 35% FiO2. Patient was on Precedex until early this morning, and it was sure off at 3 AM. Remains on enteral feeding via PEG tube. Remains on IV fluid, 0.9 saline at 50 mL per doris r. Patient remains on Zosyn for presumptive aspiration pneumonia. Seems to be doing well, his mentation seems to be more appropriate, patient seems to be less restless and agitated although he is off Precedex since 3 AM. Chest x-ray showed improvement of his pneumonia. CBC is relatively normal electrolytes and renal profile are normal. The patient is seen today 02/13/2021 in follow-up in the intensive care unit. He is currently sitting up in chair at the bedside. Awake and alert in no acute distress. He is on room air oxygen and maintaining O2 saturations in the 90s. His alert, oriented 3. Afebrile. Hemodynamically stable. Chest x-ray reveals patchy infiltrate the right middle lobe but no change compared to previous. Stable. Sputum positive for Proteus mirabilis, Acinetobacter, group G strep. White count 7.2. He was 1110.7. Platelet count 33,000. Sodium 138. Potassium 3.9. Creatinine 0.41. He remains on Unasyn. Objective - Vital Signs Vital signs: Vital Signs Temp 97.9 F 02/13/21 08:00 Pulse 104 H 02/13/21 08:01 Resp 16 02/13/21 08:00 BP 133/84 02/13/21 08:00 Pulse Ox 96 02/13/21 08:00 Intake & Output 02/12/21 02/13/21 02/13/21 18:59 06:59 18:59 Intake Total 790 885 Output Total 1101 600 Balance -311 285 Weight 54.5 kg Intake: IV 550 825 Lacosamide IV 50 mg In 50 Sodium Chloride 0.9% 50 ml @ 100 mls/hr IVPB BID [facility] Rx#:[id number] Piperacillin-Tazobactam 3 100 .375 gm In Sodium Chloride 0.9% 100 ml @ 25 mls/hr IVPB Q8HR [facility] Rx# :[id number] Sodium Chloride 0.9% 1, 450 775 000 ml @ 50 mls/hr IV . Q20H [facility] Rx#:[id number] Tube Feeding 240 60 Output: Urine 1100 600 Stool 1 Other: Voiding Method Indwelling Catheter Indwelling Catheter Indwelling Catheter # Voids 1 - Exam GENERAL EXAM: Alert, oriented 60-year-old gentleman, up in a chair at the bedside, on room air, comfortable in no apparent distress. HEAD: Normocephalic. EYES: Normal reaction of pupils, equal size. NOSE: Clear with pink turbinates. THROAT: No erythema or exudates. NECK: Tracheostomy tube secured in place. No masses, no JVD. CHEST: No chest wall deformity. LUNGS: Equal air entry with few scattered rhonchi. CVS: S1 and S2 normal with no audible murmur, regular rhythm. ABDOMEN: PEG tube exit site clean and dry. No hepatosplenomegaly, normal bowel sounds, no guarding or rigidity. SPINE: No scoliosis or deformity SKIN: No rashes CENTRAL NERVOUS SYSTEM: No focal deficits, tone is normal in all 4 extremities. EXTREMITIES: There is no peripheral edema. No clubbing, no cyanosis. Peripheral pulses are intact. - Labs CBC & Chem 7: 02/13/21 04:58 02/13/21 04:58 Labs: Abnormal Lab Results - Last 24 Hours (Table) 02/13/21 02/13/21 02/13/21 Range/Units 00:06 04:58 04:58 RBC 3.19 L (4.30-5.90) m/uL Hgb 10.7 L (13.0-17.5) gm/dL Hct 31.1 L (39.0-53.0) % Plt Count 33 L (150-450) k/uL Creatinine 0.41 L (0.66-1.25) mg/dL Glucose 108 H (74-99) mg/dL POC Glucose (mg/dL) 119 H (75-99) mg/dL Albumin 3.4 L (3.5-5.0) g/dL 02/13/21 02/13/21 Range/Units 05:59 10:37 RBC (4.30-5.90) m/uL Hgb (13.0-17.5) gm/dL Hct (39.0-53.0) % Plt Count (150-450) k/uL Creatinine (0.66-1.25) mg/dL Glucose (74-99) mg/dL POC Glucose (mg/dL) 73 L 129 H (75-99) mg/dL Albumin (3.5-5.0) g/dL Microbiology - Last 24 Hours (Table) 02/08/21 11:25 Blood Culture Gram Stain - Final Blood Blood Culture - Final Staph hominis sub sp. hominis Enterococcus gallinarum 02/09/21 17:03 Blood Culture - Preliminary Blood No Growth after 72 hours 02/09/21 03:25 Gram Stain - Final Sputum Sputum Culture - Final Proteus mirabilis Acinetobacter marcelina/haemol Beta Hemolytic Strep Group G Assessment and Plan Assessment: 1 Acute hypoxic respiratory failure secondary to acute metabolic encephalopathy, patient presented with unresponsiveness, mental status change, and was seems to be a right lower lobe pneumonia/aspiration pneumonia. Possible sepsis. Sputum cultures are positive for Proteus mirabilis. Patient remains on Zosyn 2 Acute onset of altered mental status, Suspect alcohol withdrawal or possibly alcohol withdrawal seizures 3 Chronic thrombocytopenia 4 History of squamous cell carcinoma of the tongue 5 History of chronic indwelling tracheostomy. 6 History of chronic obstructive pulmonary disease. 7 History of pulmonary nodule being followed by Dr. Diaz on outpatient basis. 8 Seizure disorder. 9 History of right hip fracture and right hemiarthroplasty 10 History of depression 11 History of coronary artery disease and previous DC Plan: The patient was seen and evaluated by Dr. Dukes Cleared for transfer to the regular medical floor Stable from the pulmonary standpoint Remains on Unasyn, bronchodilators On room air and home once cleared by medicine I, the cosigning physician, performed a history & physical examination of the patient. Lungs sounds with few scattered rhonchi. Maintaining good O2 saturations in the 90s on room air. I discussed the assessment and plan of care with my nurse practitioner, Pearl Jensen. I attest to the above note as dictated by her.
[2021-02-13 11:56] LABS: Glucose,Whole Blood 103 mg/dL (75-99)
[2021-02-13 17:12] LABS: Glucose,Whole Blood 98 mg/dL (75-99)
--- NOTE | 2021-02-13 19:46 | P.PN ---
Subjective This is a pleasant 60 years old male with multiple medical problems. Presents with altered mental status, metabolic encephalopathy is suspected, aspiration pneumonia is also in the differential diagnosis, neurology on the case also with seizure was also suspected. Patient is currently an event that 150 mg twice a day. EEG shows no epileptiform activity. CT of the brain is negative for acute process. CT of the cervical spine showing no acute fracture. However patient looks to have severe sepsis. He is currently on Zosyn and IV vancomycin. Sputum culture is growing gram-negative bacilli and final result is pending Toilet team R following the case for low platelet count which is suspected to be multifactorial secondary to alcohol, chronic ITP and liver disease. 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 Today patient breathing situation deteriorated and he had to be placed back on vent and sedated. Patient has tracheostomy 02/11/2021 Today's patient is still in the ICU. When I saw him in the morning he was on mechanical ventilation through the tracheostomy with PEEP of 5 and FiO2 of 40%, he was sedated on propofol so he could not participate in conversation. R on he was switched to trach collar at 8 L/m of oxygen. His vitals looks stable but he has low-grade temperature of 99.9 today. Platelet count improved to 33K Chest x-ray showing improvement infiltrate on the right lower lung His sputum culture is growing sensitive for Proteus and IV vancomycin was stopped and to continue with his [facility] Neurology service on the case for altered mental status and switch him to vimpat 50 mg twice daily intravenously. CT of the brain and cervical spine is negative. EEG no obvious epileptiform se izure. 02/12/2021 Patient today seen in the ICU. He is fully awake and oriented. He denies any s pecific complaints, he is eager to go home today however he agrees to [facility] for now He is on trach collar and oxygen saturation is acceptable. He is saturating 97% on room air. Risks of vitals showing he is afebrile for the last 24 hours, he is slightly tachycardic [id number]. Labs including CBC and BMP are unremarkable. Platelets are stable around 33 today which is chronic. Chest x-ray shows stable findings. Yesterday his antibiotics changed to Unasyn percent on sputum culture which showing Proteus and acinobactrim as well as beta-hemolytic streptococci per infectious disease recommendation. Also he is on gentle hydration with normal saline at 50 mL per hour (stopped today). Neurologist today discontinued Vimpat for seizure prophylaxis and switch him to Lamictal which helped him with the mood as well as seizure prophylaxis and increasing tapering up the dose gradually, please refer to neurology notes for more details cupola repairer cleared The patient for discharge home. Neurologist will see the patient sporadically Objective - Vital Signs Vital signs: Vital Signs Temp 97.6 F 02/13/21 16:48 Pulse 100 02/13/21 16:48 Resp 18 02/13/21 16:48 BP 114/66 02/13/21 16:48 Pulse Ox 96 02/13/21 16:48 Intake & Output 02/12/21 02/13/21 02/13/21 18:59 06:59 18:59 Intake Total 790 885 Output Total 1101 600 Balance -311 285 Weight 54.5 kg Intake: IV 550 825 Lacosamide IV 50 mg In 50 Sodium Chloride 0.9% 50 ml @ 100 mls/hr IVPB BID [facility] Rx#:[id number] Piperacillin-Tazobactam 3 100 .375 gm In Sodium Chloride 0.9% 100 ml @ 25 mls/hr IVPB Q8HR [facility] Rx# :[id number] Sodium Chloride 0.9% 1, 450 775 000 ml @ 50 mls/hr IV . Q20H [facility] Rx#:[id number] Tube Feeding 240 60 Output: Urine 1100 600 Stool 1 Other: Voiding Method Indwelling Catheter Indwelling Catheter Indwelling Catheter # Voids 1 - Exam -GENERAL: The patient is awake and alert and oriented 3, not in respiratory distress. He is on trach collar on room air HEENT: Pupils are round and equally reacting to light. EOMI. No scleral icterus. No conjunctival pallor. Normocephalic, atraumatic. No pharyngeal erythema. No thyromegaly. CARDIOVASCULAR: S1 and S2 present. No murmurs, rubs, or gallops. -PULMONARY: Chest is clear to auscultation, no wheezing or crackles. tracheostomy is in place ABDOMEN: Soft, nontender, nondistended, normoactive bowel sounds. No palpable organomegaly. MUSCULOSKELETAL: No joint swelling or deformity. EXTREMITIES: No cyanosis, clubbing, or pedal edema. NEUROLOGICAL: Gross neurological examination did not reveal any focal deficits. SKIN: No rashes. no petechiae. - Labs CBC & Chem 7: 02/13/21 04:58 02/13/21 04:58 Labs: Abnormal Lab Results - Last 24 Hours (Table) 02/13/21 02/13/21 02/13/21 Range/Units 00:06 04:58 04:58 RBC 3.19 L (4.30-5.90) m/uL Hgb 10.7 L (13.0-17.5) gm/dL Hct 31.1 L (39.0-53.0) % Plt Count 33 L (150-450) k/uL Creatinine 0.41 L (0.66-1.25) mg/dL Glucose 108 H (74-99) mg/dL POC Glucose (mg/dL) 119 H (75-99) mg/dL Albumin 3.4 L (3.5-5.0) g/dL 02/13/21 02/13/21 02/13/21 Range/Units 05:59 10:37 11:55 RBC (4.30-5.90) m/uL Hgb (13.0-17.5) gm/dL Hct (39.0-53.0) % Plt Count (150-450) k/uL Creatinine (0.66-1.25) mg/dL Glucose (74-99) mg/dL POC Glucose (mg/dL) 73 L 129 H 103 H (75-99) mg/dL Albumin (3.5-5.0) g/dL Microbiology - Last 24 Hours (Table) 02/08/21 11:25 Blood Culture Gram Stain - Final Blood Blood Culture - Final Staph hominis sub sp. hominis Enterococcus gallinarum 02/09/21 17:03 Blood Culture - Preliminary Blood No Growth after 72 hours Assessment and Plan Assessment: Altered mental status, most likely metabolic encephalopathy, seizure is suspected and neurologist been consulted. Completely resolved Possible Aspiration pneumonia. Improving on antibiotics Acute hypoxic respiratory failure secondary to above. Completely resolved Severe sepsis. Resolved Possible alcohol withdrawal, resolved Thrombocytopenia History of carcinoma of the tongue, squamous cell carcinoma Mild to moderate protein calorie malnutrition Plan: This is a 60 years old male who presents with severe sepsis and altered mental status and possible pneumonia. Continue with broad-spectrum antibiotics in the form of Unasyn and discontinue IV fluids. Continue with vimpat as per neurology consult. Continue with Lamictal per neurologist. Pulmonary team cleared the patient for discharge. Neurologist also see the patient sporadically Hematology consult for severe thrombocytopenia, but this is a chronic. Monitor platelet count Infectious disease team on the case Labs and medication were reviewed.. Continue same treatment. Continue with symptomatic treatment. Resume home medication. Monitor lytes and vitals. DVT and GI prophylaxis. Further recommendationsas per clinical course of the patient DVT prophylaxis: Subcutaneous heparin GI Prophylaxis: Ppi Possible discharge in 24-48 hours if he keeps improving
[2021-02-13] MEDS ORDERED: MELATONIN 5 MG TABLET PO SCH (21:00)
[2021-02-13 21:11] LABS: Glucose,Whole Blood 113 mg/dL (75-99)
[2021-02-14] MEDS: AMPICILLIN-SULBACTAM 3 GM in SODIUM CHLORIDE 0.9% 100 ML IVPB SCH ×5 (00:15→16:56)
--- NOTE | 2021-02-14 01:11 | PN ---
PROGRESS NOTE DATE OF SERVICE: 02/13/2021. REASON FOR FOLLOWUP: Gram-negative pneumonia. INTERVAL HISTORY: Patient is afebrile. The patient is breathing comfortably. The patient denies having any chest pain. No shortness of breath or cough. No abdominal pain, no diarrhea. EXAMINATION: His blood pressure is 117/80 with a pulse 100, temperature 97.6. He is 97% on room air. The patient is a middle-aged male, up in the chair, in no distress RESPIRATORY SYSTEM: Unlabored breathing, some coarse breath sounds. No wheeze. HEART: S1, S2. Regular rate and rhythm. LABS: Hemoglobin is 10. is 7.2, BUN of 12, creatinine 0.41. DIAGNOSTIC IMPRESSION AND PLAN: 1. Patient with Gram-negative pneumonia. 2. Sputum has been Acinetobacter and strep and Proteus. Patient is covered with Unasyn, finishing therapy with oral . 3. Positive blood cultures, Staph hominis, Hemoccult negative, likely skin contaminant and no need for further therapy for the same. MMODL / IJN: [id number] /
[2021-02-14] MEDS: SODIUM CHLORIDE 0.9% 1,000 ML IV SCH (02:14)
[2021-02-14] MEDS: VANCOMYCIN 1,000 MG in SODIUM CHLORIDE 0.9% 250 ML IVPB SCH (02:15)
[2021-02-14 07:12] LABS: Glucose,Whole Blood 118 mg/dL (75-99)
[2021-02-14] MEDS: lamoTRIgine 25 MG TAB PEG/G-TUBE SCH (07:34)
[2021-02-14] MEDS: THIAMINE 100 MG TAB PEG/G-TUBE SCH (07:34)
[2021-02-14] MEDS: POTASSIUM BICARBONATE/CIT AC 20 MEQ TABLET.EFF PO SCH (07:35)
[2021-02-14] MEDS: MIDODRINE 5 MG TAB PEG/G-TUBE SCH ×2 (07:35→18:26)
[2021-02-14] MEDS: SODIUM CHLORIDE TAB 1 GM TAB PEG/G-TUBE SCH (07:35)
[2021-02-14] MEDS: PANTOPRAZOLE 40 MG/10 ML VIAL IVP SCH (07:35)
[2021-02-14] MEDS: CYANOCOBALAMIN 500 MCG TAB PEG/G-TUBE SCH (07:36)
[2021-02-14] MEDS: IPRATROPIUM-ALBUTEROL 3 ML NEB INHALATION SCH ×2 (08:15→11:33)
[2021-02-14 11:31] LABS: Glucose,Whole Blood 100 mg/dL (75-99)
--- NOTE | 2021-02-14 12:07 | P.PN ---
Subjective Progress Note Date: 02/14/21 Principal diagnosis: Acute hypoxic respiratory failure secondary to mental status change, possible acute metabolic encephalopathy suspect sepsis and suspect aspiration pneumonia. 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 His other medical history significant for COPD, seizure disorder, history of depression, history of falls, with right hip fracture and a surgical repair, and patient has multiple lung nodules that are being followed on an outpatient basis by Dr. Diaz since July 2020. Most recent computed tomography scan of the chest from all 12/18/2020 showed near complete resolution of the nodularity in the right lower lobe suggesting inflammatory rather than malignant abnormalities. Patient has a chronic tracheostomy tube in place, with an uncuffed #6 fenestrated trach, and patient is not usually on supplemental oxygen according to his . Patient is strict nothing by mouth at home according to the . He does have history of seizure disorder normally takes Lacosamide 50 mg twice a day per the PEG tube, in addition patient takes Ativan 1 mg daily as needed for anxiety, and Neurontin 300 mg 3 times a day. On 02/08/2021 patient was found unresponsive by his . She wasn't sure if patient had fallen or if he had a seizure although she den ied witnessing a seizure. In the ER EMS reported normal blood sugars and normal vitals. Patient did have poor respiratory effort he required to be airbag by EMS en route to the emergency department. Patient was afebrile on arrival, his oxygen saturation was 86%, his respiratory effort was poor. His uncuffed tracheostomy tube was changed for a coughed tracheostomy tube, and patient was placed on ventilator support. EEG showed normal sinus rhythm with a rate of 92 BPM with no acute ST or T-wave changes. Was QT prolongation noted. CBC was unremarkable, his platelet count was low at 36,000 however patient does have a history of thrombocytopenia, no leukocytosis, quite panel was negative, metabolic panel showed mild hyponatremia with a serum sodium of 131, no evidence of urinary tract infection, urinalysis was negative, drug screen was negative, tox labs were negative, alvarez virus PCR was negative, influenza and RSV and rotavirus were all negative, CT of the brain and C-spine showed no acute process, chest x-ray showed right basilar airspace disease, patient was started on broad-spectrum antibiotic. Blood cultures have been sent. Patient's blood gas showed pO2 of 205, pCO2 40, pH of 7.32 this was done on FiO2 100%, and FiO2 has since been dropped down to 50%. Antibiotics in the form of cefepime and vancomycin were started, patient was given a total of 1 L and fluid boluses, and his maintenance IV fluids are infusing at a rate of 130 ML per hour. Neurology consultation has been requested, EEG is pending. Patient has been admitted to the intensive care unit where he woke up, he is strict to the ventilator, currently on assist control mode of ventilation with a rate of 12, tidal volume is 400, FiO2 50% and PEEP of 5. He is very agitated, was given 2 mg of IV Ativa n, and he will be started on IV sedation, he is not following commands, however he is moving all 4 extremities. Patient was reevaluated today on 02/09/2021, remains in the ICU, intubated and mechanically ventilated. Patient is on assist control rate of 12, tidal volume 400 FiO2 40% PEEP of 5. ABG showed a pO2 of 80 pCO2 of 41 pH of 7.36. Patient is off propofol at present, he is awake, but restless and agitated, keeps thrashing in bed, does not follow any instructions except giving thumbs up using left thumb. When instructed to do so. Chest x-ray is showing worsening infiltrate in the right lower lobe, suspect aspiration pneumonia. Platelets are down to 29,000. Hematology is addressing the issue of his thrombocytopenia. Shunt may need to be transfused. Patient is not ready for weaning mostly because of his extreme agitation off propofol, hence I recommended that we start the patient on Precedex. WBC count is 16.2 hemoglobin is 14.6. Electrolytes are normal renal profile is normal. BUN is 5 creatinine is 0.59. Blood cultures are showing coagulase-negative staph and Streptococcus species. I possibly a contamination. Remains empirically on antibiotics in the form of cef epime and vancomycin. Chest x-ray clearly shows evidence of pneumonia will switch patient to Zosyn.. Patient was reevaluated today on 02/10/2021, remains in the ICU, tolerated extubation from mechanical ventilation yesterday, however he remains on trach collar at 40%. Patient is off Precedex. Not requiring much sedation except intermittent Ativan for agitation. Patient remains on tube feeds using Jevity at 30 mL per hour. Goal is 60. Patient remains on the CIWA protocol. Patient is awake, following simple instructions, no major change in the last 24 hours. Chest x-ray continues to show right lower lobe infiltrate consistent with aspiration pneumonia. CBC today is relatively normal basic metabolic profile is normal potassium is a bit low being corrected now 3.6. Patient was reevaluated today on 02/11/2021, remains in the ICU, he is back on mechanical ventilation, patient became extremely agitated and restless and Desaturating yesterday, hence we had to place him back on mechanical ventilation and on propofol drip. Remains on propofol, last night his dose went as high as 75 mcg/kg/m, now he is down to 40 mcg/kg/m. He is on assist control rate of 12 tidal volume 400 FiO2 40% PEEP of 5. ABG showed a pO2 of 93 pCO2 of 38 pH of 7.51. I am planning to discontinue propofol, place the patient on Precedex again, and try to get him off mechanical ventilation and try trach collar again. Chest x-ray showed improvement in his right basilar pneumonia. Patient is on Jevity via PEG tube, and he is tolerating feeding quite well. Potassium is low at 2.5, being corrected as per protocol. Renal profile is normal. Sputum cultures positive for Proteus mirabilis. Acid after all antibiotics except tetracycline patient is on Zosyn. Chest x-ray is showing improvement Reevaluated today on 02/12/2021, patient remains in the ICU, however he is off mechanical ventilation, he is on trach collar at 35% FiO2. Patient was on Precedex until early this morning, and it was sure off at 3 AM. Remains on enteral feeding via PEG tube. Remains on IV fluid, 0.9 saline at 50 mL per doris r. Patient remains on Zosyn for presumptive aspiration pneumonia. Seems to be doing well, his mentation seems to be more appropriate, patient seems to be less restless and agitated although he is off Precedex since 3 AM. Chest x-ray showed improvement of his pneumonia. CBC is relatively normal electrolytes and renal profile are normal. The patient is seen today 02/13/2021 in follow-up in the intensive care unit. He is currently sitting up in chair at the bedside. Awake and alert in no acute distress. He is on room air oxygen and maintaining O2 saturations in the 90s. His alert, oriented 3. Afebrile. Hemodynamically stable. Chest x-ray reveals patchy infiltrate the right middle lobe but no change compared to previous. Stable. Sputum positive for Proteus mirabilis, Acinetobacter, group G strep. White count 7.2. He was 1110.7. Platelet count 33,000. Sodium 138. Potassium 3.9. Creatinine 0.41. He remains on Unasyn. The patient is seen today 02/14/2021 in follow-up on the regular medical floor. He is currently sitting up in a chair at the bedside. Awake and alert in no acute distress. Maintaining good O2 saturation in the 90s on room air. He denies any shortness of breath, cough or congestion. He is a no 3. He is receiving Jevity tube feedings at 60 ML's per hour via his PEG tube. Follow-up blood culture reveals no growth. Sputum culture was positive for Proteus mirabilis and Acinetobacter Stephanie. He remains on Unasyn. Continue bronchodilators. Objective - Vital Signs Vital signs: Vital Signs Temp 97.9 F 02/14/21 02:00 Pulse 100 02/14/21 08:37 Resp 16 02/14/21 02:00 BP 119/79 02/14/21 07:20 Pulse Ox 96 02/14/21 02:00 Intake & Output 02/13/21 02/14/21 02/14/21 18:59 06:59 18:59 Intake Total 400 340 Output Total 1700 Balance 400 -1360 Weight 57.4 kg Intake: Intake, IV Titration 400 340 Amount Ampicillin-Sulbactam 3 gm 200 100 In Sodium Chloride 0.9% 100 ml @ 200 mls/hr IVPB Q6HR [facility] Rx#:[id number] Sodium Chloride 0.9% 1, 200 240 000 ml @ 50 mls/hr IV . Q20H [facility] Rx#:[id number] Output: Urine 1700 Other: Voiding Method Indwelling Catheter Urinal Urinal - Exam GENERAL EXAM: Alert, oriented 60-year-old gentleman, up in a chair at the bedside, on room air, comfortable in no apparent distress. HEAD: Normocephalic. EYES: Normal reaction of pupils, equal size. NOSE: Clear with pink turbinates. THROAT: No erythema or exudates. NECK: Tracheostomy tube secured in place. No masses, no JVD. CHEST: No chest wall deformity. LUNGS: Equal air entry with few scattered rhonchi. CVS: S1 and S2 normal with no audible murmur, regular rhythm. ABDOMEN: PEG tube exit site clean and dry. No hepatosplenomegaly, normal bowel sounds, no guarding or rigidity. SPINE: No scoliosis or deformity SKIN: No rashes CENTRAL NERVOUS SYSTEM: No focal deficits, tone is normal in all 4 extremities. EXTREMITIES: There is no peripheral edema. No clubbing, no cyanosis. Peripheral pulses are intact. - Labs CBC & Chem 7: 02/13/21 04:58 02/13/21 04:58 Labs: Abnormal Lab Results - Last 24 Hours (Table) 02/13/21 02/14/21 02/14/21 Range/Units 21:10 07:10 11:29 POC Glucose (mg/dL) 113 H 118 H 100 H (75-99) mg/dL Microbiology - Last 24 Hours (Table) 02/09/21 17:03 Blood Culture - Preliminary Blood No Growth after 96 hours Assessment and Plan Assessment: 1 Acute hypoxic respiratory failure secondary to acute metabolic encephalopathy, patient presented with unresponsiveness, mental status change, and was seems to be a right lower lobe pneumonia/aspiration pneumonia. Possible sepsis. Sputum cultures are positive for Proteus mirabilis. Patient remains on Unasyn 2 Acute onset of altered mental status, Suspect alcohol withdrawal or possibly alcohol withdrawal seizures 3 Chronic thrombocytopenia 4 History of squamous cell carcinoma of the tongue 5 History of chronic indwelling tracheostomy. 6 History of chronic obstructive pulmonary disease. 7 History of pulmonary nodule being followed by Dr. Diaz on outpatient basis. 8 Seizure disorder. 9 History of right hip fracture and right hemiarthroplasty 10 History of depression 11 History of coronary artery disease and previous DE Plan: The patient was seen and evaluated by Dr. Dukes Cleared for discharge from the pulmonary standpoint Antibiotics per ID services I, the cosigning physician, performed a history & physical examination of the patient. Lungs sounds with few scattered rhonchi. Maintaining good O2 saturations in the 90s on room air. I discussed the assessment and plan of care with my nurse practitioner, Pearl Jensen. I attest to the above note as dictated by her.
[2021-02-14 12:12] VITALS: BP 122/80; PULSE 106; RESP 17; TEMP 98
--- NOTE | 2021-02-14 18:52 | PN ---
PROGRESS NOTE DATE OF SERVICE: 02/14/2021. REASON FOR FOLLOWUP: Acinetobacter and Proteus pneumonia. INTERVAL HISTORY: The patient is afebrile. The patient is breathing comfortably on room air. Denies having any chest pain. No shortness of breath. Occasional cough. No abdominal pain. No diarrhea. PHYSICAL EXAMINATION: Blood pressure is 122/80 with a pulse 100. Temperature 98. He is 96% on room air. General description is a middle-aged male up in the chair in no distress. Respiratory system: Unlabored breathing, decreased intensity of breath sounds in the base, with no wheeze. Heart S1, S2. Regular rate and rhythm. Abdomen soft, no tenderness. LABS: No new labs have been obtained today. DIAGNOSTIC IMPRESSION AND PLAN: Patient with Acinetobacter, Proteus pneumonia overall improvement on Unasyn. To finish therapy with oral Cipro. Prescription sent to pharmacy and close outpatient followup. MMODL / IJN: [id number] /
== END 2021-02-14 19:27 | disposition home health service (06) | DRG 871 ==
LOC: EC 10:51 → 2SICU 13:19 → 5NMEDONC 02-13 11:01
PROVIDERS: ADMIT Hospitalist; ATTEND Hospitalist
PROC: 5A1945Z Respiratory Ventilation, 24-96 Consecutive Hours (ICD-10-PCS; principal; 2021-02-09)
PROC: 3E0G76Z Introduction of Nutritional Substance into Upper GI, Via Natural or Artificial Opening (ICD-10-PCS; 2021-02-09)
PROC: 0DH67UZ Insertion of Feeding Device into Stomach, Via Natural or Artificial Opening (ICD-10-PCS; 2021-02-09)
DX: A41.9 Sepsis, unspecified organism (principal); J69.0 Pneumonitis due to inhalation of food and vomit; J96.01 Acute respiratory failure with hypoxia; G93.41 Metabolic encephalopathy; E43 Unspecified severe protein-calorie malnutrition; J15.6 Pneumonia due to other Gram-negative bacteria; J44.0 Chronic obstructive pulmonary disease with (acute) lower respiratory infection; R64 Cachexia; E87.2 Acidosis; D69.3 Immune thrombocytopenic purpura; Z43.1 Encounter for attention to gastrostomy; E87.1 Hypo-osmolality and hyponatremia; F10.139 Alcohol abuse with withdrawal, unspecified; Z68.1 Body mass index [BMI] 19.9 or less, adult; R65.20 Severe sepsis without septic shock; D69.6 Thrombocytopenia, unspecified; G62.1 Alcoholic polyneuropathy; Z93.0 Tracheostomy status; F10.129 Alcohol abuse with intoxication, unspecified; G40.909 Epilepsy, unspecified, not intractable, without status epilepticus; Z20.822 Contact with and (suspected) exposure to COVID-19; I95.89 Other hypotension; E87.6 Hypokalemia; Y90.0 Blood alcohol level of less than 20 mg/100 ml; S00.03XA Contusion of scalp, initial encounter; K70.9 Alcoholic liver disease, unspecified; K21.9 Gastro-esophageal reflux disease without esophagitis; R13.10 Dysphagia, unspecified; R47.02 Dysphasia; G89.29 Other chronic pain; M47.812 Spondylosis without myelopathy or radiculopathy, cervical region; I25.10 Atherosclerotic heart disease of native coronary artery without angina pectoris; F32.9 Major depressive disorder, single episode, unspecified; F41.9 Anxiety disorder, unspecified; M54.9 Dorsalgia, unspecified; R47.1 Dysarthria and anarthria; R29.6 Repeated falls; R91.1 Solitary pulmonary nodule; I25.2 Old myocardial infarction; F17.210 Nicotine dependence, cigarettes, uncomplicated; Z71.6 Tobacco abuse counseling; Z79.82 Long term (current) use of aspirin; Z79.899 Other long term (current) drug therapy; Z87.01 Personal history of pneumonia (recurrent); Z96.641 Presence of right artificial hip joint; Z85.818 Personal history of malignant neoplasm of other sites of lip, oral cavity, and pharynx; Z85.810 Personal history of malignant neoplasm of tongue; Z91.81 History of falling; Z92.21 Personal history of antineoplastic chemotherapy; Z92.3 Personal history of irradiation; Z87.2 Personal history of diseases of the skin and subcutaneous tissue
CPT/HCPCS: 36415; 36600; 70450; 71045; 72125; 80048; 80053; 80143; 80179; 80202; 80306; 80320; 81001; 82140; 82330; 82550; 82805; 83036; 83605; 83735; 84132; 84145; 84443; 84484; 85025; 85379; 85384; 85610; 85730; 86140; 86850; 86900; 86901; 87040; 87070; 87077; 87086; 87186; 87205; 87636; 93005; 94002; 94003; 94640; 95822; 96361; 96365; 96367; 96374; 99291

== ENCOUNTER → 2021-07-01 | Outpatient (CLI) | payer MEDICAID, MEDICARE, OTHER ==
--- NOTE | 2021-07-18 15:57 | EEG ---
ELECTROENCEPHALOGRAM REPORT PROCEDURE DATE: 07/01/2021. ELECTROENCEPHALOGRAM (EEG) REPORT: TECHNIQUE: This is a report from a prolonged 2.5 hour outpatient digital video EEG performed using the 10/20 electrode placement system. HISTORY: Seizure. CURRENT MEDICATIONS: Unknown. FINDINGS: Recording start time: 07/01/2021 at 8:21 am. Recording end time: 07/01/2021 at 10:51 am. EVENTS: During this 2.5 hour outpatient prolonged digital video EEG, no clinical or electrographic seizures were recorded. BACKGROUND: The background activity consisted of 8-9 hertz rhythmic waveforms symmetrically seen in both posterior quadrants. ACTIVATION: Hyperventilation: Not performed. Photic stimulation: Symmetric driving seen. Sleep: Stages I and II sleep noted. ABNORMALITIES: None. IMPRESSION: Normal prolonged 2.5 hour outpatient digital video EEG. No clinical or electrographic seizures were recorded. No epileptiform activity was present. MMODL / IJN: [id number] /
== END | disposition home or self-care (01) ==
LOC: NEUROMAIN 07:23
PROVIDERS: ATTEND Psychiatry & Neurology Neurology
DX: R56.9 Unspecified convulsions (principal)
CPT/HCPCS: 95713

== ENCOUNTER 2022-03-22 08:40 | Inpatient (IN) | payer MEDICARE, OTHER ==
--- NOTE | 2022-03-22 09:08 | ED ---
Nausea/Vomiting/Diarrhea HPI - General Chief complaint: Nausea/Vomiting/Diarrhea Stated complaint: Coughing up blood,upset stomach Time Seen by Provider: 03/22/22 08:49 Source: patient, RN notes reviewed Mode of arrival: wheelchair Limitations: no limitations - History of Present Illness Initial comments: This is a 61-year-old male who presents to the emergency department for constipation, abdominal pain, and coughing up blood. Patient states that the abdominal pain has been there for approximately 2 days. He began coughing up blood yesterday. Denies any history of hemoptysis and he does not feel short of breath and is not complaining of any chest pain. Denies any fevers, chills, sore throat, palpitations, nausea, vomiting, diarrhe a, back pain, or headaches. MD complaint: diarrhea, abdominal pain, other (hemoptysis) Onset/Timin -: days(s) Associated Abdominal Pain: Yes Location: diffuse - Related Data Home Medications Medication Instructions Recorded Confirmed Cyanocobalamin [Vitamin B-12] 500 mcg PEG/G-TUBE DAILY 09/15/20 03/22/22 Midodrine [ProAmatine] 5 mg PEG/G-TUBE BID 09/15/20 03/22/22 Sodium Chloride Tab 1 gm PEG/G-TUBE DAILY 09/15/20 03/22/22 Aspirin EC [Ecotrin Low Dose] 81 mg PEG/G-TUBE DAILY 02/08/21 03/22/22 Amitriptyline HCl [Elavil] 25 mg PEG/G-TUBE HS 03/22/22 03/22/22 Baclofen [Lioresal] 10 mg PEG/G-TUBE TID 03/22/22 03/22/22 Ipratropium-Albuterol Nebulize 3 ml INHALATION RT-Q6H PRN 03/22/22 03/22/22 [Duoneb 0.5 mg-3 mg/3 ml Soln] Levothyroxine Sodium 25 mcg PEG/G-TUBE DAILY 03/22/22 03/22/22 Metoprolol Tartrate [Lopressor] 12.5 mg PEG/G-TUBE DAILY 03/22/22 03/22/22 Prochlorperazine [Compazine] 10 mg PO DAILY PRN 03/22/22 03/22/22 Sertraline [Zoloft] 25 mg PEG/G-TUBE DAILY 03/22/22 03/22/22 busPIRone HCL 5 mg PEG/G-TUBE BID 03/22/22 03/22/22 lamoTRIgine [LaMICtal] 25 mg PEG/G-TUBE BID 03/22/22 03/22/22 Allergies Allergy/AdvReac Type Severity Reaction Status Date / Time No Known Allergies Allergy Verified 03/22/22 09:58 Review of Systems ROS Statement: Those systems with pertinent positive or pertinent negative responses have been documented in the HPI. ROS Other: All systems not noted in ROS Statement are negative. Past Medical History Past Medical History: Cancer, COPD, GERD/Reflux, Myocardial Infarction (OR), Pneumonia, Seizure Disorder Additional Past Medical History / Comment(s): 07/30/20 fall with impacted R hip fracture/tracheal bronchitis, hemoptysis, pulmonary nodules. 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 Last Myocardial Infarction Date:: 2014 History of Any Multi-Drug Resistant Organisms: None Reported Past Surgical History: Heart Catheterization Additional Past Surgical History / Comment(s): Oral surgery with resection floor of mouth/tongue/mandible and bilateral neck resection with skin graft taken from L upper arm at [facility], tracheostomy, peg tube Past Anesthesia/Blood Transfusion Reactions: No Reported Reaction Additional Past Anesthesia/Blood Transfusion Reaction / Comment(s): adopted - no family hx Past Psychological History: Anxiety, Depression Smoking Status: Current every day smoker - Past Family History Mother Family Medical History: Unable to Obtain Additional Family Medical History / Comment(s): pt is adopted General Exam Limitations: no limitations General appearance: alert, in no apparent distress Head exam: Present: atraumatic, normocephalic, normal inspection Respiratory exam: Present: normal lung sounds bilaterally. Absent: respiratory distress, wheezes, rales, rhonchi, stridor Cardiovascular Exam: Present: normal rhythm, tachycardia, normal heart sounds. Absent: systolic murmur, diastolic murmur, rubs, gallop, clicks Neurological exam: Present: alert, oriented X3, CN II-XII intact Psychiatric exam: Present: normal affect, normal mood Skin exam: Present: warm, dry, intact, normal color. Absent: rash Course Vital Signs 03/22/22 03/22/22 03/22/22 08:42 11:53 12:39 Temperature 97.7 F Pulse Rate 147 H 128 H Respiratory 18 16 Rate Blood Pressure 103/72 109/70 O2 Sat by Pulse 94 L 98 Oximetry Fraction of 28 Inspired Oxygen (FIO2) Medical Decision Making - Medical Decision Making This is a 61-year-old male who presents to the emergency department for hemoptysis, abdominal pain, and constipation. The patient is very tachycardic on initial examination. The patient denies any history of tachycardia. Chest x-ray reveals no acute cardiopulmonary process. Lab work is consistent with dehydration and hypokalemia. Patient was given a liter bolus of normal saline and 10 mEq of potassium chloride via IVPB as he is unable to take anything orall y. Lab work reveals an elevated d-dimer. Given the hemoptysis and tachycardia, this does pose significant concern for a pulmonary embolism. CTA was obtained, this did not identify any signs of a pulmonary embolus, however it did reveal a possible infectious process. Patient will be admitted for the tachycardia, hemoptysis, possible pneumonia, and dehydration. Patient started on pneumonia protocol. Pulmonology consult placed. This case was discussed in detail with the attending ED physician. Presentation, findings, and treatment plan discussed in detail as well. - Lab Data Result diagrams: 03/22/22 09:23 03/22/22 10:03 Lab Results 03/22/22 03/22/22 03/22/22 Range/Units 09:23 09:23 09:23 WBC 13.1 H (3.8-10.6) k/uL RBC 4.20 L (4.30-5.90) m/uL Hgb 14.3 (13.0-17.5) gm/dL Hct 41.6 (39.0-53.0) % MCV 98.9 (80.0-100.0) fL MCH 33.9 (25.0-35.0) pg MCHC 34.3 (31.0-37.0) g/dL RDW 13.5 (11.5-15.5) % Plt Count 96 L (150-450) k/uL MPV 11.7 Neutrophils % 86 % Lymphocytes % 5 % Monocytes % 6 % Eosinophils % 1 % Basophils % 0 % Neutrophils # 11.2 H (1.3-7.7) k/uL Lymphocytes # 0.7 L (1.0-4.8) k/uL Monocytes # 0.8 (0-1.0) k/uL Eosinophils # 0.1 (0-0.7) k/uL Basophils # 0.0 (0-0.2) k/uL Manual Slide Review Performed Toxic Vacuolation Present PT (9.0-12.0) sec INR (<1.2) D-Dimer 2.93 H (<0.60) mg/L FEU Sodium (137-145) mmol/L Potassium (3.5-5.1) mmol/L Chloride (98-107) mmol/L Carbon Dioxide (22-30) mmol/L Anion Gap mmol/L BUN (9-20) mg/dL Creatinine (0.66-1.25) mg/dL Est GFR (CKD-EPI)AfAm (>60 ml/min/1.73 sqM) Est GFR (CKD-EPI)NonAf (>60 ml/min/1.73 sqM) Glucose (74-99) mg/dL Calcium (8.4-10.2) mg/dL Magnesium (1.6-2.3) mg/dL Total Bilirubin (0.2-1.3) mg/dL AST (17-59) U/L ALT (4-49) U/L Alkaline Phosphatase (38-126) U/L Troponin I (0.000-0.034) ng/mL NT-Pro-B Natriuret Pep pg/mL Total Protein (6.3-8.2) g/dL Albumin (3.5-5.0) g/dL Coronavirus (PCR) (Not Detectd) Influenza Type A RNA Not Detected (Not Detectd) Influenza Type B (PCR) Not Detected (Not Detectd) 03/22/22 03/22/22 03/22/22 Range/Units 09:23 10:03 10:03 WBC (3.8-10.6) k/uL RBC (4.30-5.90) m/uL Hgb (13.0-17.5) gm/dL Hct (39.0-53.0) % MCV (80.0-100.0) fL MCH (25.0-35.0) pg MCHC (31.0-37.0) g/dL RDW (11.5-15.5) % Plt Count (150-450) k/uL MPV Neutrophils % % Lymphocytes % % Monocytes % % Eosinophils % % Basophils % % Neutrophils # (1.3-7.7) k/uL Lymphocytes # (1.0-4.8) k/uL Monocytes # (0-1.0) k/uL Eosinophils # (0-0.7) k/uL Basophils # (0-0.2) k/uL Manual Slide Review Toxic Vacuolation PT (9.0-12.0) sec INR (<1.2) D-Dimer (<0.60) mg/L FEU Sodium 124 L (137-145) mmol/L Potassium 3.3 L (3.5-5.1) mmol/L Chloride 84 L (98-107) mmol/L Carbon Dioxide 34 H (22-30) mmol/L Anion Gap 6 mmol/L BUN 20 (9-20) mg/dL Creatinine 0.59 L (0.66-1.25) mg/dL Est GFR (CKD-EPI)AfAm >90 (>60 ml/min/1.73 sqM) Est GFR (CKD-EPI)NonAf >90 (>60 ml/min/1.73 sqM) Glucose 92 (74-99) mg/dL Calcium 9.3 (8.4-10.2) mg/dL Magnesium (1.6-2.3) mg/dL Total Bilirubin 1.0 (0.2-1.3) mg/dL AST 59 (17-59) U/L ALT 45 (4-49) U/L Alkaline Phosphatase 75 (38-126) U/L Troponin I <0.012 (0.000-0.034) ng/mL NT-Pro-B Natriuret Pep pg/mL Total Protein 7.1 (6.3-8.2) g/dL Albumin 4.0 (3.5-5.0) g/dL Coronavirus (PCR) Not Detected (Not Detectd) Influenza Type A RNA (Not Detectd) Influenza Type B (PCR) (Not Detectd) 03/22/22 03/22/22 03/22/22 Range/Units 10:03 11:27 11:27 WBC (3.8-10.6) k/uL RBC (4.30-5.90) m/uL Hgb (13.0-17.5) gm/dL Hct (39.0-53.0) % MCV (80.0-100.0) fL MCH (25.0-35.0) pg MCHC (31.0-37.0) g/dL RDW (11.5-15.5) % Plt Count (150-450) k/uL MPV Neutrophils % % Lymphocytes % % Monocytes % % Eosinophils % % Basophils % % Neutrophils # (1.3-7.7) k/uL Lymphocytes # (1.0-4.8) k/uL Monocytes # (0-1.0) k/uL Eosinophils # (0-0.7) k/uL Basophils # (0-0.2) k/uL Manual Slide Review Toxic Vacuolation PT 10.3 (9.0-12.0) sec INR 0.9 (<1.2) D-Dimer (<0.60) mg/L FEU Sodium (137-145) mmol/L Potassium (3.5-5.1) mmol/L Chloride (98-107) mmol/L Carbon Dioxide (22-30) mmol/L Anion Gap mmol/L BUN (9-20) mg/dL Creatinine (0.66-1.25) mg/dL Est GFR (CKD-EPI)AfAm (>60 ml/min/1.73 sqM) Est GFR (CKD-EPI)NonAf (>60 ml/min/1.73 sqM) Glucose (74-99) mg/dL Calcium (8.4-10.2) mg/dL Magnesium 1.7 (1.6-2.3) mg/dL Total Bilirubin (0.2-1.3) mg/dL AST (17-59) U/L ALT (4-49) U/L Alkaline Phosphatase (38-126) U/L Troponin I (0.000-0.034) ng/mL NT-Pro-B Natriuret Pep 1390 pg/mL Total Protein (6.3-8.2) g/dL Albumin (3.5-5.0) g/dL Coronavirus (PCR) (Not Detectd) Influenza Type A RNA (Not Detectd) Influenza Type B (PCR) (Not Detectd) - EKG Data EKG Comments: Sinus tachycardia with short NC interval. Ventricular rate 141 bpm, NC interval 113 ms, QRS duration 92 ms, QTC 410 ms. - Radiology Data Radiology results: report reviewed, image reviewed Disposition Clinical Impression: Tachycardia, Dehydration, Pneumonia Disposition: ADMITTED IP TO THIS HOSP
[2022-03-22 09:56] LABS: Basophils % (A) 0 %; Eosinophils # (A) 0.1 k/uL (0-0.7); Eosinophils % (A) 1 %; HCT 41.6 % (39.0-53.0); HGB 14.3 gm/dL (13.0-17.5); Lymphocytes # (A) 0.7 k/uL (1.0-4.8); Lymphocytes % (A) 5 %; MCH 33.9 pg (25.0-35.0); MCHC 34.3 g/dL (31.0-37.0); MCV 98.9 fL (80.0-100.0); Mean Platelet Volume 11.7; Monocytes # (A) 0.8 k/uL (0-1.0); Monocytes % (A) 6 %; Neutrophils # (A) 11.2 k/uL (1.3-7.7); Neutrophils % (A) 86 %; RDW 13.5 % (11.5-15.5); WBC 13.1 k/uL (3.8-10.6)
--- NOTE | 2022-03-22 09:56 | XR ---
EXAMINATION TYPE: XR chest 2V DATE OF EXAM: 03/22/2022 9:45 AM COMPARISON: Chest radiographs from 02/13/2021 TECHNIQUE: XR chest 2V Frontal and lateral views of the chest. CLINICAL INDICATION:Male, 61 years old with history of Hemoptysis; FINDINGS: Lungs/Pleura: There is no evidence of pleural effusion, focal consolidation, or pneumothorax. Pulmonary vascularity: Unremarkable. Heart/mediastinum: Cardiomediastinal silhouette is unremarkable. Musculoskeletal: No acute osseous pathology. Lines/Tubes: Tracheostomy cannula tip projecting over the trachea. Suspected PEG tube seen projecting over the gastric lumen. IMPRESSION: No acute cardiopulmonary disease/process.
[2022-03-22 10:59] LABS: ALT 45 U/L (4-49); AST 59 U/L (17-59); African American GFR (CKD) >90 (>60 ml/min/1.73 sqM); Alkaline Phosphatase 75 U/L (38-126); Anion Gap 6 mmol/L; Blood Urea Nitrogen 20 mg/dL (9-20); Calcium 9.3 mg/dL (8.4-10.2); Carbon Dioxide 34 mmol/L (22-30); Chloride 84 mmol/L (98-107); Glucose 92 mg/dL (74-99); Non-African American GFR(CKD) >90 (>60 ml/min/1.73 sqM); Potassium 3.3 mmol/L (3.5-5.1); Sodium 124 mmol/L (137-145); Total Protein 7.1 g/dL (6.3-8.2)
[2022-03-22] MEDS ORDERED: POTASSIUM CHLORIDE ER 20 MEQ TAB.ER PO STA (11:12)
[2022-03-22] MEDS ORDERED: SODIUM CHLORIDE 0.9% 1,000 ML IV STA (11:12)
[2022-03-22 11:24] LABS: Toxic Vacuolation Present
[2022-03-22 11:25] LABS: Platelet Count 96 k/uL (150-450)
[2022-03-22] MEDS ORDERED: POTASSIUM CHLORIDE 10 MEQ in WATER FOR INJECTION 1 100ML.BAG IVPB STA (11:29)
--- NOTE | 2022-03-22 12:01 | CT ---
EXAMINATION TYPE: CT chest angio for PE CT DLP: 265.3 mGycm, Automated exposure control for dose reduction was used. DATE OF EXAM: 03/22/2022 11:29 AM COMPARISON: CT 12/17/2020. CT chest 03/22/2022. CLINICAL INDICATION:Male, 61 years old with history of Tachycardia, hemoptysis, elevated d-dimer; Mary vated d-dimer, tachycardia and hemoptysis. TECHNIQUE/CONTRAST: CTA scan of the thorax is performed with IV Contrast, patient injected with 100ml mL of Isovue 370, p ulmonary embolism protocol. MIP images are created and reviewed. FINDINGS: Pulmonary Artery: There is no evidence for a central filling defect within the pulmonary vasculature to suggest acute pulmonary embolism. Limited evaluation of the segmental and subsegmental branches se condary to bolus timing. The pulmonary artery is of normal size. Lungs/Pleura: No evidence of focal consolidation, pleural effusion or pneumothorax. There is a nodule left lower lobe measuring 15 mm with ill-defined groundglass periphery. Not clearly seen on prior on 12/17/2020. Additional scattered reticular groundglass opacities are seen within the lower lobes left greater than right. Airway: Tracheostomy cannula terminating within the trachea above the clarisse. Heart: Heart is within normal limits for size. Moderate coronary artery atherosclerosis. Vasculature: No evidence of aortic aneurysm. Left chest wall [id number] with distal tip terminatin g within the superior vena cava. There is Mediastinum: No gross evidence of adenopathy. Musculoskeletal: No acute osseous abnormalities, multilevel disc degeneration changes seen throughout the spine. Soft Tissues: Unremarkable. Lower neck: No significant findings. Upper Abdomen: Diffuse low-attenuation to the liver parenchyma. Scattered calcified granulomas in the spleen. IMPRESSION: 1. No evidence of central pulmonary embolism. Limited evaluation of the segmental and subsegmental b ranches. 2. Findings suspicious for infectious/posterior process primarily involving the lower lobes, left gr eater right with a focal Nodular-like opacity. Attention on short-term follow-up in 3 months is recom mended. 3. Hepatic steatosis. 4. Tracheostomy cannula in appropriate position.
[2022-03-22 12:03] LABS: INR 0.9 (<1.2); Prothrombin Time 10.3 sec (9.0-12.0)
[2022-03-22] MEDS ORDERED: LORazepam 2 MG/ML INJ IV STA (12:09)
[2022-03-22] MEDS ORDERED: PNEUMONIA PROTOCOL UTILIZED 1 EACH MISC PO PRN (12:22)
[2022-03-22] MEDS: AZITHROMYCIN 500 MG in SODIUM CHLORIDE 0.9% 250 ML IVPB SCH (12:41)
[2022-03-22] MEDS: SODIUM CHLORIDE 0.9% 1,000 ML IV SCH (12:42)
[2022-03-22] MEDS ORDERED: NALOXONE 0.4 MG/ML 1 ML VIAL IV PRN (12:43)
[2022-03-22 12:55] LABS: Appearance,Urine Clear (Clear); Bilirubin,Urine Negative (Negative); Blood,Urine Negative (Negative); Color,Urine Yellow; Glucose,Urine (UA) Negative (Negative); Ketones,Urine Negative (Negative); Leukocyte Esterase,Urine Negative (Negative); Nitrite,Urine Negative (Negative); Protein,Urine 1+ (Negative); RBC,Urine <1 /hpf (0-5); Urobilinogen,Urine <2.0 mg/dL (<2.0); WBC,Urine 1 /hpf (0-5)
[2022-03-22 13:14] LABS: Amphetamine Screen,Urine Not Detected (NotDetected); Barbiturate Screen,Urine Not Detected (NotDetected); Benzodiazepines Screen,Urine Not Detected (NotDetected); Cocaine Screen,Urine Not Detected (NotDetected); Methadone Screen, Urine Not Detected (NotDetected); Opiate Screen,Urine Not Detected (NotDetected); Oxycodone Screen, Urine Not Detected (NotDetected); Phencyclidine Screen,Urine Not Detected (NotDetected); Tricyclic Antidepressant,Urine Detected (NotDetected); Urn Cannabinoid Scrn Not Detected (NotDetected)
[2022-03-22 14:15] VITALS: BMI 22.8
[2022-03-22] MEDS ORDERED: ALBUTEROL NEBULIZED 2.5 MG/3 ML INHALATION STA (14:25)
[2022-03-22 21:51] LABS: Magnesium 1.8 mg/dL (1.6-2.3)
[2022-03-22] MEDS ORDERED: Potassium Replacement Protocol 1 EACH MISC MISCELLANE PRN (22:43)
[2022-03-22] MEDS ORDERED: LORazepam 2 MG/ML INJ IV PRN ×3 (22:45)
[2022-03-22] MEDS ORDERED: METOPROLOL TARTRATE 25 MG TAB PEG/G-TUBE SCH (22:45)
[2022-03-22] MEDS: lamoTRIgine 25 MG TAB PEG/G-TUBE SCH (23:35)
[2022-03-22] MEDS: AMITRIPTYLINE HCL 25 MG TAB PEG/G-TUBE SCH (23:35)
[2022-03-22] MEDS: BACLOFEN 10 MG TAB PEG/G-TUBE SCH (23:37)
[2022-03-22] MEDS: busPIRone HCl 5 MG TAB PEG/G-TUBE SCH (23:37)
[2022-03-22] MEDS: POTASSIUM CHLORIDE 10 MEQ in WATER FOR INJECTION 1 100ML.BAG IVPB SCH (23:40)
[2022-03-23] MEDS: POTASSIUM CHLORIDE 10 MEQ in WATER FOR INJECTION 1 100ML.BAG IVPB SCH ×3 (01:12→03:43)
[2022-03-23] MEDS: SODIUM CHLORIDE TAB 1 GM TAB PEG/G-TUBE SCH ×2 (01:13→09:31)
[2022-03-23] MEDS: SODIUM CHLORIDE 0.9% 1,000 ML IV SCH ×2 (01:16→16:44)
[2022-03-23] MEDS: LEVOTHYROXINE 25 MCG TAB PEG/G-TUBE SCH (06:39)
[2022-03-23] MEDS ORDERED: VANCOMYCIN IV PER PHARMACY 1 EACH MISC MISCELLANE PRN (07:13)
[2022-03-23 08:46] LABS: Basophils # (A) 0.1 k/uL (0-0.2); Basophils % (A) 1 %; Eosinophils # (A) 0.3 k/uL (0-0.7); Eosinophils % (A) 3 %; HCT 36.6 % (39.0-53.0); Lymphocytes # (A) 0.8 k/uL (1.0-4.8); Lymphocytes % (A) 10 %; MCH 33.9 pg (25.0-35.0); MCHC 32.9 g/dL (31.0-37.0); MCV 102.9 fL (80.0-100.0); Macrocytosis Slight; Mean Platelet Volume 9.4; Monocytes # (A) 0.6 k/uL (0-1.0); Monocytes % (A) 7 %; Neutrophils # (A) 6.2 k/uL (1.3-7.7); Neutrophils % (A) 75 %; RBC 3.56 m/uL (4.30-5.90); RDW 12.9 % (11.5-15.5); WBC 8.3 k/uL (3.8-10.6)
[2022-03-23 08:55] LABS: Platelet Count 69 k/uL (150-450)
[2022-03-23 09:02] LABS: ALT 48 U/L (4-49); AST 77 U/L (17-59); African American GFR (CKD) >90 (>60 ml/min/1.73 sqM); Albumin 3.5 g/dL (3.5-5.0); Alkaline Phosphatase 59 U/L (38-126); Anion Gap 5 mmol/L; Blood Urea Nitrogen 9 mg/dL (9-20); Calcium 8.2 mg/dL (8.4-10.2); Carbon Dioxide 29 mmol/L (22-30); Chloride 97 mmol/L (98-107); Glucose 88 mg/dL (74-99); Non-African American GFR(CKD) >90 (>60 ml/min/1.73 sqM); Potassium 3.7 mmol/L (3.5-5.1); Sodium 131 mmol/L (137-145); Total Bilirubin 0.7 mg/dL (0.2-1.3); Total Protein 6.4 g/dL (6.3-8.2)
[2022-03-23] MEDS: SERTRALINE 25 MG TAB PEG/G-TUBE SCH (09:25)
[2022-03-23] MEDS: VANCOMYCIN 1,250 MG in SODIUM CHLORIDE 0.9% 250 ML IVPB SCH ×3 (09:26→23:53)
[2022-03-23] MEDS: busPIRone HCl 5 MG TAB PEG/G-TUBE SCH ×2 (09:26→20:00)
[2022-03-23] MEDS: lamoTRIgine 25 MG TAB PEG/G-TUBE SCH ×2 (09:26→20:00)
[2022-03-23] MEDS: BACLOFEN 10 MG TAB PEG/G-TUBE SCH ×3 (09:26→21:43)
[2022-03-23] MEDS: CYANOCOBALAMIN 500 MCG TAB PEG/G-TUBE SCH (09:26)
[2022-03-23] MEDS: MIDODRINE 5 MG TAB PEG/G-TUBE SCH ×2 (09:26→16:44)
[2022-03-23] MEDS: METOPROLOL SUCCINATE (ER) 25 MG TAB.ER.24H PO SCH (09:26)
[2022-03-23] MEDS: AZITHROMYCIN 500 MG in SODIUM CHLORIDE 0.9% 250 ML IVPB SCH (09:49)
--- NOTE | 2022-03-23 10:45 | P.CRDCN ---
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 He did see Dr. Caballero in 2018. We've been asked to see the patient in consultation for episode of NSVT. Patient presented to the ER with non-cardiac symptoms of abdominal pain, constipation, and hemoptysis. Overnight patient with 18 beat run of NSVT. He was asymptomatic. Patient denies any chest pain, shortness of breath, lightheadedness, dizziness, palpitations. DIAGNOSTICS * EKG reveals sinus tachycardia, heart rate 141 * Telemetry tracings indicate sinus rhythm [id number] * CTA-reported as no evidence of pulmonary embolism, findings suspicious for infectious S posterior process probably involving the lower lobes, left greater than right with focal nodular-like opacity. Hepatic steatosis * Laboratory reviewed, troponin negative, proBNP 1690 WBC 8.3, hemoglobin 12, platelets 69, sodium 131, potassium 3.7, BUN 9, serum creatinine 0.4 * Current home cardiac medications include []. REVIEW OF SYSTEMS At the time of my exam: CONSTITUTIONAL: Denies fever or chills. CARDIOVASCULAR: Denies chest pain, shortness of breath, orthopnea, PND or palpitations. RESPIRATORY: Denies cough. GASTROINTESTINAL: Denies abdominal pain, diarrhea, constipation, nausea or vomiting. MUSCULOSKELETAL: Denies myalgias. NEUROLOGIC: Denies numbness, tingling, headacbe or weakness. ENDOCRINE: Denies fatigue, weight change, polydipsia or polyurina. GENITOURINARY: Denies burning, hematuria or urgency with micturation. HEMATOLOGIC: Denies history of anemia or bleeding. PHYSICAL EXAMINATION Blood pressure 122/76, heart rate 107, afebrile, oxygen saturation 93% with trach collar CONSTITUTIONAL: No apparent distress. HEENT: Head is normocephalic. Pupils are equal, round. Sclerae anicteric. Mucous membranes of the mouth are moist. No JVD. No carotid bruit. CHEST EXAMINATION: Lungs are diminished to auscultation. No chest wall tenderness is noted on palpation or with deep breathing. HEART EXAMINATION: Regular rate and rhythm. S1, S2 heard. No murmurs, gallops or rub. ABDOMEN: Soft, nontender. Positive bowel sounds. EXTREMITIES: 2+ peripheral pulses, no lower extremity edema and no calf tenderness. NEUROLOGIC EXAMINATION: Patient is awake, alert and oriented x3. 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 Aspirin on hold secondary to hemoptysis restart when able Recommend statin Will optimize heart failure regimen Start Metoprolol succinate 25mg daily and Lisinopril 2.5mg daily Further recommendations based on clinical course Nurse practitioner note has been reviewed by physician. Signing provider agrees with the documented findings, assessment, and plan of care. Past Medical History Past Medical History: Cancer, COPD, GERD/Reflux, Myocardial Infarction ([place]), Pneumonia, Seizure Disorder Additional Past Medical History / Comment(s): 07/30/20 fall with impacted R hip fracture/tracheal bronchitis, hemoptysis, pulmonary nodules. 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 Last chemo/radiation in 2017. Last Myocardial Infarction Date:: 2014 History of Any Multi-Drug Resistant Organisms: None Reported Past Surgical History: Heart Catheterization Additional Past Surgical History / Comment(s): Oral surgery with resection floor of mouth/tongue/mandible and bilateral neck resection with skin graft taken from L upper arm at [facility], tracheostomy, peg tube Past Anesthesia/Blood Transfusion Reactions: No Reported Reaction Additional Past Anesthesia/Blood Transfusion Reaction / Comment(s): adopted - no family hx Past Psychological History: Anxiety, Depression Additional Psychological History / Comment(s): Pt resides with his spouse. He states he has home care thru [facility]. He uses a walker to ambulate. Smoking Status: Current every day smoker Past Alcohol Use History: Daily, Heavy Additional Past Alcohol Use History / Comment(s): Pt started smoking in 1977 and is a 1/2 ppd smoker. Pt states he now has a beer occasionally thru peg tube. Past Drug Use History: Marijuana Additional Drug Use History / Comment(s): Pt uses marijuana rarely. - Past Family History Mother Family Medical History: Unable to Obtain Additional Family Medical History / Comment(s): pt is adopted Medications and Allergies Home Medications Medication Instructions Recorded Confirmed Type Cyanocobalamin [Vitamin B-12] 500 mcg PEG/G-TUBE DAILY 09/15/20 03/22/22 History Midodrine [ProAmatine] 5 mg PEG/G-TUBE BID 09/15/20 03/22/22 History Sodium Chloride Tab 1 gm PEG/G-TUBE DAILY 09/15/20 03/22/22 History Aspirin EC [Ecotrin Low Dose] 81 mg PEG/G-TUBE DAILY 02/08/21 03/22/22 History Amitriptyline HCl [Elavil] 25 mg PEG/G-TUBE HS 03/22/22 03/22/22 History Baclofen [Lioresal] 10 mg PEG/G-TUBE TID 03/22/22 03/22/22 History Ipratropium-Albuterol Nebulize 3 ml INHALATION RT-Q6H PRN 03/22/22 03/22/22 History [Duoneb 0.5 mg-3 mg/3 ml Soln] Levothyroxine Sodium 25 mcg PEG/G-TUBE DAILY 03/22/22 03/22/22 History Metoprolol Tartrate [Lopressor] 12.5 mg PEG/G-TUBE DAILY 03/22/22 03/22/22 History Prochlorperazine [Compazine] 10 mg PO DAILY PRN 03/22/22 03/22/22 History Sertraline [Zoloft] 25 mg PEG/G-TUBE DAILY 03/22/22 03/22/22 History busPIRone HCL 5 mg PEG/G-TUBE BID 03/22/22 03/22/22 History lamoTRIgine [LaMICtal] 25 mg PEG/G-TUBE BID 03/22/22 03/22/22 History Allergies Allergy/AdvReac Type Severity Reaction Status Date / Time No Known Allergies Allergy Verified 03/22/22 09:58 Physical Exam Vitals: Vital Signs Temp Pulse Pulse Resp BP BP Pulse Ox 03/23/22 03:50 98.1 F 115 H 24 119/79 96 03/23/22 02:00 115 H 03/22/22 23:50 22 98 03/22/22 23:31 98.9 F 110 H 20 112/76 96 03/22/22 20:25 98.5 F 111 H 22 121/76 100 03/22/22 16:42 124 H 20 03/22/22 16:24 112 H 20 03/22/22 16:04 97 03/22/22 15:35 121 H 24 03/22/22 15:27 98.3 F 121 H 24 123/55 92 L 03/22/22 15:21 96 03/22/22 14:15 120 H 20 96 03/22/22 12:39 03/22/22 11:53 128 H 16 109/70 98 03/22/22 08:42 97.7 F 147 H 18 103/72 94 L FiO2 03/23/22 03:50 03/23/22 02:00 03/22/22 23:50 03/22/22 23:31 03/22/22 20:25 03/22/22 16:42 03/22/22 16:24 03/22/22 16:04 35 03/22/22 15:35 03/22/22 15:27 03/22/22 15:21 28 03/22/22 14:15 03/22/22 12:39 28 03/22/22 11:53 03/22/22 08:42 Intake and Output 03/22/22 03/23/22 03/23/22 22:59 06:59 14:59 Other: Voiding Method Incontinent Weight 68.039 kg Results 03/23/22 08:29 03/23/22 08:29 Cardiac Enzymes 03/22/22 03/22/22 Range/Units 10:03 10:03 AST 59 (17-59) U/L Troponin I <0.012 (0.000-0.034) ng/mL Coagulation 03/22/22 Range/Units 11:27 PT 10.3 (9.0-12.0) sec CBC 03/22/22 Range/Units 09:23 WBC 13.1 H (3.8-10.6) k/uL RBC 4.20 L (4.30-5.90) m/uL Hgb 14.3 (13.0-17.5) gm/dL Hct 41.6 (39.0-53.0) % Plt Count 96 L (150-450) k/uL Comprehensive Metabolic Panel 03/22/22 03/22/22 Range/Units 10:03 21:16 Sodium 124 L (137-145) mmol/L Potassium 3.3 L 3.0 L (3.5-5.1) mmol/L Chloride 84 L (98-107) mmol/L Carbon Dioxide 34 H (22-30) mmol/L BUN 20 (9-20) mg/dL Creatinine 0.59 L (0.66-1.25) mg/dL Glucose 92 (74-99) mg/dL Calcium 9.3 (8.4-10.2) mg/dL AST 59 (17-59) U/L ALT 45 (4-49) U/L Alkaline Phosphatase 75 (38-126) U/L Total Protein 7.1 (6.3-8.2) g/dL Albumin 4.0 (3.5-5.0) g/dL Current Medications Generic Name Dose Route Start Last Admin Trade Name Freq PRN Reason Stop Dose Admin Amitriptyline HCl 25 mg 03/22/22 22:45 03/22/22 23:35 Amitriptyline Hcl 25 Mg Tab PEG/G-TUBE 25 mg HS ALEJO Administration Baclofen 10 mg 03/22/22 22:45 03/22/22 23:37 Baclofen 10 Mg Tab PEG/G-TUBE 10 mg TID ALEJO Administration Buspirone HCl 5 mg 03/22/22 22:45 03/22/22 23:37 Buspirone Hcl 5 Mg Tab PEG/G-TUBE 5 mg BID ALEJO Administration Cyanocobalamin 500 mcg 03/23/22 09:00 Cyanocobalamin 500 Mcg Tab PEG/G-TUBE DAILY ALEJO Sodium Chloride 1,000 mls @ 75 mls/hr 03/22/22 12:15 03/23/22 01:16 Saline 0.9% IV Not Given .[id number] ALEJO Ceftriaxone Sodium 2 gm/ 50 mls @ 100 mls/hr 03/23/22 09:00 Sodium Chloride IVPB 03/26/22 09:29 Q24HR ALEJO Protocol Azithromycin 500 mg/ Sodium 250 mls @ 250 mls/hr 03/22/22 12:30 03/22/22 12:41 Chloride IVPB 03/25/22 12:31 250 mls/hr DAILY ALEJO Administration Protocol Vancomycin HCl 1,250 mg/ 250 mls @ 125 mls/hr 03/23/22 08:00 Sodium Chloride IVPB Q8H ALEJO Lamotrigine 25 mg 03/22/22 22:45 03/22/22 23:35 Lamotrigine 25 Mg Tab PEG/G-TUBE 25 mg BID ALEJO Administration Levothyroxine Sodium 25 mcg 03/23/22 06:30 03/23/22 06:39 Levothyroxine 25 Mcg Tab PEG/G-TUBE 25 mcg DAILY@0630 ALEJO Administration Lorazepam 1 mg 03/22/22 22:45 Lorazepam 2 Mg/Ml Inj IV Q2HR PRN CIWA 8 or 9 Lorazepam 1 mg 03/22/22 22:45 Lorazepam 2 Mg/Ml Inj IV Q1HR PRN CIWA 10 to 15 Lorazepam 2 mg 03/22/22 22:45 Lorazepam 2 Mg/Ml Inj IV 03/24/22 22:45 Q10M PRN CIWA 16 or higher Metoprolol Tartrate 25 mg 03/22/22 22:45 03/22/22 23:37 Metoprolol Tartrate 25 Mg Tab PEG/G-TUBE 25 mg DAILY ALEJO Administration Midodrine 5 mg 03/23/22 09:00 Midodrine 5 Mg Tab PEG/G-TUBE BID@0900,1730 [facility] Miscellaneous Information 1 each 03/22/22 12:22 Pneumonia Protocol Utilized 1 Each Misc PO ONCE PRN Per Protocol Miscellaneous Information 1 each 03/22/22 22:43 Potassium Replacement Protocol 1 Each Misc MISCELLANE DAILY PRN Per Protocol Protocol Naloxone HCl 0.2 mg 03/22/22 12:43 Naloxone 0.4 Mg/Ml 1 Ml Vial IV Q2M PRN Opioid Reversal Sertraline HCl 25 mg 03/23/22 09:00 Sertraline 25 Mg Tab PEG/G-TUBE DAILY ALEJO Sodium Chloride 1 gm 03/22/22 22:45 03/23/22 01:13 Sodium Chloride Tab 1 Gm Tab PEG/G-TUBE 1 gm DAILY ALEJO Administration Intake and Output 03/22/22 03/23/22 03/23/22 22:59 06:59 14:59 Other: Voiding Method Incontinent Weight 68.039 kg 03/22/22 09:23 03/22/22 21:16
--- NOTE | 2022-03-23 10:46 | CA ---
Transthoracic Echo Report Name: Blake Brown Age: 61 Gender: M : 1960 Exam Date: 03/23/2022 09:25 Exam Location: [place] [facility] Ht (in): 68 Wt (lb): 150 Ordering Physician: Jane Cohen Attending/Referring Phys: Color Tester Caprice Prado RDCS Procedure CPT: Indications: NSVT, Hx cardiomyopathy Cardiac Hx: Technical Quality: Fair Contrast 1: Total Dose (mL): Contrast 2: Total Dose (mL): MEASUREMENTS (Male / Female) Normal Values 2D ECHO LV Diastolic Diameter PLAX 5.1 cm 4.2 - 5.9 / 3.9 - 5.3 cm LV Systolic Diameter PLAX 4.0 cm IVS Diastolic Thickness 1.1 cm 0.6 - 1.0 / 0.6 - 0.9 cm LVPW Diastolic Thickness 1.0 cm 0.6 - 1.0 / 0.6 - 0.9 cm LV Relative Wall Thickness 0.4 RV Internal Dim ED PLAX 2.8 cm LA Systolic Diameter LX 3.5 cm 3.0 - 4.0 / 2.7 - 3.8 cm M-MODE Aortic Root Diameter MM 3.6 cm MV E Point Septal Separation 3.0 cm AV Cusp Separation MM 1.7 cm DOPPLER AV Peak Velocity 77.5 cm/s AV Peak Gradient 2.4 mmHg MV Area PHT 5.5 cm??? MV Deceleration Time 163.2 ms FINDINGS Left Ventricle Left ventricular ejection fraction is estimated at 20-25 %. Left ventricular cavity size normal. Borderline left ventricular hypertrophy. Right Ventricle Normal right ventricular size and function. Right Atrium Normal right atrial size. Left Atrium Normal left atrial size. No evidence for an atrial septal defect. Mitral Valve Mitral annular calcification. No mitral stenosis, regurgitation or prolapse. Aortic Valve Focal thickening of the aortic valve cusps. Trileaflet aortic valve. No aortic valve stenosis or regurgitation. Tricuspid Valve Structurally normal tricuspid valve. Pulmonic Valve No pulmonic regurgitation. Pericardium Normal pericardium. No pericardial effusion. Aorta Normal size aortic root and proximal ascending aorta. CONCLUSIONS Severe LV dysfunction ejection fraction less than 25% Previewed by: Dr. Tim Dickson MD (Electronically Signed) Final Date: 23 March 2022 10:45
--- NOTE | 2022-03-23 11:07 | P.CNPUL ---
History of Present Illness Consult date: 03/23/22 Requesting physician: Phill Tan Reason for consult: dyspnea, cough, hypoxemia, pneumonia, abnormal CXR/CT Chief complaint: Hemoptysis. History of present illness: Pulmonary consult dated 03/23/2022. 61-year-old male with a history of oral cancer, status post tracheostomy, chemotherapy, and radiation therapy, who came into the emergency department complaining of nausea, vomiting, diarrhea, upset stomach, and also coughing up blood. I was consulted for the hemoptysis. The patient is still coughing up blood, admixed with some purulent looking sputum. The patient is currently resting comfortably in bed. He is getting saline at 75 mL an hour, and trach collar 35%. He is on vancomycin and Rocephin. Chest x-ray was negative. CAT scan was negative for PE, but did show some infiltrates in the lower lobes. The patient is receiving Jevity 1.5 and 30 mL an hour, with a goal of 60 mL an hour, via a PEG tube. Today we talked about doing a bronchoscopy on him. He is in agreement. The nurse was in the room, and her the conversation. White count 8.3, hemoglobin 12, hematocrit 36.6, and platelet count 69,000. Sodium 131, potassium 3.7, chlorides 97, CO2 29, BUN 9, and creatinine 0.47. N-terminal proBNP was 1390. Blood and sputum cultures thus far are negative. As mentioned, the chest x-ray is negative. The CTA was negative for a central pulmonary embolism, but did suggest some lower lobe inflammatory/infectious process. Review of Systems REVIEW OF SYSTEMS: CONSTITUTIONAL: [Negative.] NEUROLOGIC: [ Negative.] HEENT: [ Negative.] CARDIAC: [Negative.] PULMONARY: cough, shortness of breath, chest congestion,hemoptysis. GI: [Negative.] : [Negative.] RHEUMATOLOGIC: [ Negative.] IMMUNOLOGIC: [ Negative.] ENDOCRINE: [Negative. ] DERMATOLOGIC: [Negative.] Past Medical History Past Medical History: Cancer, COPD, GERD/Reflux, Myocardial Infarction ([place]), Pneumonia, Seizure Disorder Additional Past Medical History / Comment(s): 07/30/20 fall with impacted R hip fracture/tracheal bronchitis, hemoptysis, pulmonary nodules. 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 Last chemo/radiation in 2017. Last Myocardial Infarction Date:: 2014 History of Any Multi-Drug Resistant Organisms: None Reported Past Surgical History: Heart Catheterization Additional Past Surgical History / Comment(s): Oral surgery with resection floor of mouth/tongue/mandible and bilateral neck resection with skin graft taken from L upper arm at [facility], tracheostomy, peg tube Past Anesthesia/Blood Transfusion Reactions: No Reported Reaction Additional Past Anesthesia/Blood Transfusion Reaction / Comment(s): adopted - no family hx Past Psychological History: Anxiety, Depression Additional Psychological History / Comment(s): Pt resides with his spouse. He states he has home care thru [facility]. He uses a walker to ambulate. Smoking Status: Current every day smoker Past Alcohol Use History: Daily, Heavy Additional Past Alcohol Use History / Comment(s): Pt started smoking in 1977 and is a 1/2 ppd smoker. Pt states he now has a beer occasionally thru peg tube. Past Drug Use History: Marijuana Additional Drug Use History / Comment(s): Pt uses marijuana rarely. - Past Family History Mother Family Medical History: Unable to Obtain Additional Family Medical History / Comment(s): pt is adopted Medications and Allergies Home Medications Medication Instructions Recorded Confirmed Type Cyanocobalamin [Vitamin B-12] 500 mcg PEG/G-TUBE DAILY 09/15/20 03/22/22 History Midodrine [ProAmatine] 5 mg PEG/G-TUBE BID 09/15/20 03/22/22 History Sodium Chloride Tab 1 gm PEG/G-TUBE DAILY 09/15/20 03/22/22 History Aspirin EC [Ecotrin Low Dose] 81 mg PEG/G-TUBE DAILY 02/08/21 03/22/22 History Amitriptyline HCl [Elavil] 25 mg PEG/G-TUBE HS 03/22/22 03/22/22 History Baclofen [Lioresal] 10 mg PEG/G-TUBE TID 03/22/22 03/22/22 History Ipratropium-Albuterol Nebulize 3 ml INHALATION RT-Q6H PRN 03/22/22 03/22/22 History [Duoneb 0.5 mg-3 mg/3 ml Soln] Levothyroxine Sodium 25 mcg PEG/G-TUBE DAILY 03/22/22 03/22/22 History Metoprolol Tartrate [Lopressor] 12.5 mg PEG/G-TUBE DAILY 03/22/22 03/22/22 History Prochlorperazine [Compazine] 10 mg PO DAILY PRN 03/22/22 03/22/22 History Sertraline [Zoloft] 25 mg PEG/G-TUBE DAILY 03/22/22 03/22/22 History busPIRone HCL 5 mg PEG/G-TUBE BID 03/22/22 03/22/22 History lamoTRIgine [LaMICtal] 25 mg PEG/G-TUBE BID 03/22/22 03/22/22 History Allergies Allergy/AdvReac Type Severity Reaction Status Date / Time No Known Allergies Allergy Verified 03/22/22 09:58 Physical Exam Osteopathic Statement: *. No significant issues noted on an osteopathic structural exam other than those noted in the History and Physical/Consult. Vitals: Vital Signs Temp Pulse Pulse Resp BP BP Pulse Ox 03/23/22 09:11 97.5 F L 03/23/22 09:03 107 H 22 122/76 93 L 03/23/22 08:39 97 03/23/22 03:50 98.1 F 115 H 24 119/79 96 03/23/22 02:00 115 H 03/22/22 23:50 22 98 03/22/22 23:31 98.9 F 110 H 20 112/76 96 03/22/22 20:25 98.5 F 111 H 22 121/76 100 03/22/22 16:42 124 H 20 03/22/22 16:24 112 H 20 03/22/22 16:04 97 03/22/22 15:35 121 H 24 03/22/22 15:27 98.3 F 121 H 24 123/55 92 L 03/22/22 15:21 96 03/22/22 14:15 120 H 20 96 03/22/22 12:39 03/22/22 11:53 128 H 16 109/70 98 FiO2 03/23/22 09:11 03/23/22 09:03 03/23/22 08:39 35 03/23/22 03:50 03/23/22 02:00 03/22/22 23:50 03/22/22 23:31 03/22/22 20:25 03/22/22 16:42 03/22/22 16:24 03/22/22 16:04 35 03/22/22 15:35 03/22/22 15:27 03/22/22 15:21 28 03/22/22 14:15 03/22/22 12:39 28 03/22/22 11:53 Intake and Output 03/22/22 03/23/22 03/23/22 22:59 06:59 14:59 Other: Voiding Method Incontinent Weight 68.039 kg No acute distress, oriented 3. Trach collar in place at 35%. HEENT examination is grossly unremarkable. Neck supple. Full range of motion. No adenopathy thyromegaly or neck vein distention. Midline tracheostomy tube noted. Cardiovascular examination reveals regular rhythm rate. S1-S2 normal. No S3 or S4. No discernible murmur noted. Heart rate 100 bpm. Lungs reveal coarse bilateral rhonchi. Breath sounds equal bilaterally. No wheezes. No crackles.Saturations 93%. Abdomen soft,PEG tube noted. Extremities are intact. No cyanosis clubbing or edema. Skin is without rash or lesion. Neurologic examination is brief but nonfocal. Results - Laboratory Findings CBC and BMP: 03/23/22 08:29 03/23/22 08:29 PT/INR, D-dimer PT 10.3 sec (9.0-12.0) 03/22/22 11:27 INR 0.9 (<1.2) 03/22/22 11:27 D-Dimer 2.93 mg/L FEU (<0.60) H 03/22/22 09:23 Abnormal lab findings: Abnormal Labs 03/22/22 03/22/22 03/22/22 09:23 09:23 10:03 WBC 13.1 H RBC 4.20 L Hgb Hct MCV Plt Count 96 L Neutrophils # 11.2 H Lymphocytes # 0.7 L D-Dimer 2.93 H Sodium 124 L Potassium 3.3 L Chloride 84 L Carbon Dioxide 34 H Creatinine 0.59 L Calcium AST Urine Protein U Tricyclic Antidepress 03/22/22 03/22/22 03/23/22 12:20 21:16 08:29 WBC RBC 3.56 L Hgb 12.0 L Hct 36.6 L MCV 102.9 H Plt Count 69 L Neutrophils # Lymphocytes # 0.8 L D-Dimer Sodium Potassium 3.0 L Chloride Carbon Dioxide Creatinine Calcium AST Urine Protein 1+ H U Tricyclic Antidepress Detected H 03/23/22 08:29 WBC RBC Hgb Hct MCV Plt Count Neutrophils # Lymphocytes # D-Dimer Sodium 131 L Potassium Chloride 97 L Carbon Dioxide Creatinine 0.47 L Calcium 8.2 L AST 77 H Urine Protein U Tricyclic Antidepress - Diagnostic Findings Chest x-ray: image reviewed CT scan - chest: image reviewed Assessment and Plan Assessment: Hemoptysis, likely secondary to bibasilar pneumonia. History of oral cancer, status post surgery, chemoradiation, and tracheostomy. History of pulmonary nodules. Status post PEG tube placement. Chronic back pain. History of ongoing tobacco use. Plan: Plan dated 03/23/2022. The patient will undergo bronchoscopy and airway examination tomorrow. The patient is ready on good antibiotics in the form of vancomycin and Rocephin. He's getting tube feeds with Jevity, at 30 mL an hour. He is on a 35% trach co llar. He is in no distress from the respiratory standpoint. Labs, x-rays, and medications are all reviewed. Prognosis is guarded. We will continue to follow and make recommendations along the way. Time with Patient: Greater than 30
--- NOTE | 2022-03-23 19:31 | P.HPIM ---
History of Present Illness H&P Date: 03/23/22 Chief Complaint: Hemoptysis, tachycardia This is a 61-year-old gentleman with past medical history of carcinoma of the tongue, squamous cell CVA, tracheostomy, PEG tube, chemotherapy and radiation therapy, daily alcohol abuse, ongoing nicotine dependence, marijuana use, COPD, CAD, seizure disorder and multiple other medical issues presented to the ER with complaints of hemoptysis with nausea starting yesterday morning.sinus tachycardia-from 100s. Denies fever or chills. denies vomiting or diarrhea. Denies chest pain, palpitations. CT negative for PE, suggestive of bilateral lower lobe infiltrates. Preliminary Blood cultures reporting gram-positive cocci in groups. Afebrile normal WBC, hemoglobin 12, platelets 69, MCV 102.9, sodium improving, 131, potassium increased to 3.7, bicarb 29, renal function stable magnesium 1.8. UA negative, toxicology screen detecting tricyclic antidepressants. BNP 1390. Sputum culture pending. Review of Systems ROS Statement: Those systems with pertinent positive or pertinent negative responses have been documented in the HPI. ROS Other: All systems not noted in ROS Statement are negative. Past Medical History Past Medical History: Cancer, COPD, GERD/Reflux, Myocardial Infarction ([place]), Pneumonia, Seizure Disorder Additional Past Medical History / Comment(s): 07/30/20 fall with impacted R hip fracture/tracheal bronchitis, hemoptysis, pulmonary nodules. 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 Last chemo/radiation in 2017. Last Myocardial Infarction Date:: 2014 History of Any Multi-Drug Resistant Organisms: None Reported Past Surgical History: Heart Catheterization Additional Past Surgical History / Comment(s): Oral surgery with resection floor of mouth/tongue/mandible and bilateral neck resection with skin graft taken from L upper arm at [facility], tracheostomy, peg tube Past Anesthesia/Blood Transfusion Reactions: No Reported Reaction Additional Past Anesthesia/Blood Transfusion Reaction / Comment(s): adopted - no family hx Past Psychological History: Anxiety, Depression Additional Psychological History / Comment(s): Pt resides with his spouse. He states he has home care thru [facility]. He uses a walker to ambulate. Smoking Status: Current every day smoker Past Alcohol Use History: Daily, Heavy Additional Past Alcohol Use History / Comment(s): Pt started smoking in 1977 and is a 1/2 ppd smoker. Pt states he now has a beer occasionally thru peg tube. Past Drug Use History: Marijuana Additional Drug Use History / Comment(s): Pt uses marijuana rarely. - Past Family History Mother Family Medical History: Unable to Obtain Additional Family Medical History / Comment(s): pt is adopted Medications and Allergies Home Medications Medication Instructions Recorded Confirmed Type Cyanocobalamin [Vitamin B-12] 500 mcg PEG/G-TUBE DAILY 09/15/20 03/22/22 History Midodrine [ProAmatine] 5 mg PEG/G-TUBE BID 09/15/20 03/22/22 History Sodium Chloride Tab 1 gm PEG/G-TUBE DAILY 09/15/20 03/22/22 History Aspirin EC [Ecotrin Low Dose] 81 mg PEG/G-TUBE DAILY 02/08/21 03/22/22 History Amitriptyline HCl [Elavil] 25 mg PEG/G-TUBE HS 03/22/22 03/22/22 History Baclofen [Lioresal] 10 mg PEG/G-TUBE TID 03/22/22 03/22/22 History Ipratropium-Albuterol Nebulize 3 ml INHALATION RT-Q6H PRN 03/22/22 03/22/22 History [Duoneb 0.5 mg-3 mg/3 ml Soln] Levothyroxine Sodium 25 mcg PEG/G-TUBE DAILY 03/22/22 03/22/22 History Metoprolol Tartrate [Lopressor] 12.5 mg PEG/G-TUBE DAILY 03/22/22 03/22/22 History Prochlorperazine [Compazine] 10 mg PO DAILY PRN 03/22/22 03/22/22 History Sertraline [Zoloft] 25 mg PEG/G-TUBE DAILY 03/22/22 03/22/22 History busPIRone HCL 5 mg PEG/G-TUBE BID 03/22/22 03/22/22 History lamoTRIgine [LaMICtal] 25 mg PEG/G-TUBE BID 03/22/22 03/22/22 History Allergies Allergy/AdvReac Type Severity Reaction Status Date / Time No Known Allergies Allergy Verified 03/22/22 09:58 Physical Exam Vitals: Vital Signs Temp Pulse Resp BP Pulse Ox FiO2 03/23/22 16:46 97.7 F 107 H 21 115/75 98 35 03/23/22 16:40 35 03/23/22 11:56 105 H 20 115/77 94 L 35 03/23/22 09:11 97.5 F L 03/23/22 09:03 107 H 22 122/76 93 L 03/23/22 08:39 97 35 03/23/22 03:50 98.1 F 115 H 24 119/79 96 03/23/22 02:00 115 H 03/22/22 23:50 22 98 03/22/22 23:31 98.9 F 110 H 20 112/76 96 03/22/22 20:25 98.5 F 111 H 22 121/76 100 Intake and Output 03/23/22 03/23/22 03/23/22 06:59 14:59 22:59 Intake Total 250 210 Output Total 250 450 Balance 0 -240 Intake: Intake, IV Titration 250 Amount Vancomycin 1,250 mg In 250 Sodium Chloride 0.9% 250 ml @ 125 mls/hr IVPB Q8H [facility] Rx#:[id number] Tube Feeding 210 Output: Urine 250 450 Other: Voiding Method Incontinent - Exam -GENERAL: The patient is awake and alert and oriented 3, on trach collar. HEENT: Pupils are round and equally reacting to light. EOMI. No scleral icterus. No conjunctival pallor. Normocephalic, atraumatic. Neck supple, no JVD CARDIOVASCULAR: S1 and S2 present. No murmurs, rubs, or gallops. -PULMONARY: Scattered rhonchi, no wheezing or crackles. tracheostomy is in place ABDOMEN: Soft, nontender, nondistended, normoactive bowel sounds. No palpable organomegaly. PEG tube present MUSCULOSKELETAL: No joint swelling or deformity. EXTREMITIES: No cyanosis, clubbing, or pedal edema. NEUROLOGICAL: Gross neurological examination did not reveal any focal deficits. SKIN: No rashes. Warm and dry. Results CBC & Chem 7: 03/23/22 08:29 03/23/22 08:29 Labs: Abnormal Lab Results - Last 24 Hours (Table) 03/22/22 03/23/22 03/23/22 Range/Units 21:16 08:29 08:29 RBC 3.56 L (4.30-5.90) m/uL Hgb 12.0 L (13.0-17.5) gm/dL Hct 36.6 L (39.0-53.0) % MCV 102.9 H (80.0-100.0) fL Plt Count 69 L (150-450) k/uL Lymphocytes # 0.8 L (1.0-4.8) k/uL Sodium 131 L (137-145) mmol/L Potassium 3.0 L (3.5-5.1) mmol/L Chloride 97 L (98-107) mmol/L Creatinine 0.47 L (0.66-1.25) mg/dL Calcium 8.2 L (8.4-10.2) mg/dL AST 77 H (17-59) U/L Microbiology - Last 24 Hours (Table) 03/22/22 12:30 Blood Culture Gram Stain - Preliminary Blood 03/22/22 12:44 Blood Culture Gram Stain - Preliminary Blood Blood Culture - Preliminary Coagulase Negative Staph 03/22/22 12:30 Blood Culture - Final Blood 03/22/22 12:44 Blood Culture - Final Blood 03/22/22 12:22 Sputum Culture - Preliminary Sputum Thrombosis Risk Factor Assmnt - Choose All That Apply Any of the Below Risk Factors Present?: Yes Each Factor Represents 1 point: Age 41-60 years Thrombosis Risk Factor Assessment Total Risk Factor Score: 1 Thrombosis Risk Factor Assessment Level: Low Risk Assessment and Plan Assessment: Hemoptysis, possiblly secondary to bilateral pneumonia Possible bacteremia, cultures pending Dehydration Sinus tachycardia Hypokalemia Hyponatremia, hypovolemic History of carcinoma of the tongue, squamous cell carcinoma, status post surgical repair, chemo, radiation Mild to moderate protein calorie malnutrition Alcohol abuse, via PEG Ongoing nicotine dependence Plan: Continue on current medication regime ,monitoring and symptomatic treatment. Maintain IV antibiotics vancomycin, Rocephin. Pulmonary discussing potential bronchoscopy.CIWA protocol. Smoking cessation and alcohol abstinence reinforced. Prognosis guarded. The impression and plan of care has been dictated as directed. : I performed a history and examination of this patient, discussed the same with the dictator. I agree with the dictator's note ,documented as a scribe. Any additional findings or plans will be noted. P
[2022-03-23] MEDS: AMITRIPTYLINE HCL 25 MG TAB PEG/G-TUBE SCH (20:00)
--- NOTE | 2022-03-23 22:13 | P.CONS ---
History of Present Illness - Reason for Consult Consult date: 03/23/22 - History of Present Illness Patient is a 61-year-old male with a past medical history significant for squamous cell carcinoma of the tongue this patient who is s/p tracheostomy and PEG tube placement and did have radiation chemotherapy patient also have ongoing alcohol and nicotine dependence patient presenting to the hospital with hemoptysis nausea in this patient symptom started the day before presentation to the hospital patient complaining of increasing cough with bloodstained sputum, denies chest pain though some nausea no abdominal pain or any diarrhea patient on presentation to the hospital was afebrile and no fever have been recorded subsequently patient did have white count 13.1 with a left shift creatinine was normal liver enzymes are normal urine has been negative urine drug screen was positive for tricyclic's influenza and alvarez PCR was negative patient did have blood cultures drawn coming back positive with a gram-positive cocci patient was started on vancomycin infectious disease was consulted for further management of antibiotic therapy patient did have a chest x-ray that was negative for acute cardiopulmonary process CT angiogram of the chest no evidence of PE findings suspicious for infectious involving predominantly the lower lobe left greater than the right tracheostomy cannula in appropriate position patient also have an echocardiogram did not show any vegetation Past Medical History Past Medical History: Cancer, COPD, GERD/Reflux, Myocardial Infarction ([place]), Pneumonia, Seizure Disorder Additional Past Medical History / Comment(s): 07/30/20 fall with impacted R hip fracture/tracheal bronchitis, hemoptysis, pulmonary nodules. Other hx: 2016 Squamous cell carcinoma of the oral cavity with surge ry/chemoradiation,dysphagia, has trach and peg tube, upper GI bleed, thrombocytopenia, hyponatremia, chronic hypotension, seizure from alcohol withdrawal several years ago, L arm neuropathy, sacral decubitus, chronic back pain. Last chemo/radiation in 2017. Last Myocardial Infarction Date:: 2014 History of Any Multi-Drug Resistant Organisms: None Reported Past Surgical History: Heart Catheterization Additional Past Surgical History / Comment(s): Oral surgery with resection floor of mouth/tongue/mandible and bilateral neck resection with skin graft taken from L upper arm at [facility], tracheostomy, peg tube Past Anesthesia/Blood Transfusion Reactions: No Reported Reaction Additional Past Anesthesia/Blood Transfusion Reaction / Comm: adopted - no family hx Past Psychological History: Anxiety, Depression Additional Psychological History / Comment(s): Pt resides with his spouse. He states he has home care thru [facility]. He uses a walker to ambulate. Smoking Status: Current every day smoker Past Alcohol Use History: Daily, Heavy Additional Past Alcohol Use History / Comment(s): Pt started smoking in 1977 and is a 1/2 ppd smoker. Pt states he now has a beer occasionally thru peg tube. Past Drug Use History: Marijuana Additional Drug Use History / Comment(s): Pt uses marijuana rarely. - Past Family History Mother Family Medical History: Unable to Obtain Additional Family Medical History / Comment(s): pt is adopted Medications and Allergies Home Medications Medication Instructions Recorded Confirmed Type Cyanocobalamin [Vitamin B-12] 500 mcg PEG/G-TUBE DAILY 09/15/20 03/22/22 History Midodrine [ProAmatine] 5 mg PEG/G-TUBE BID 09/15/20 03/22/22 History Sodium Chloride Tab 1 gm PEG/G-TUBE DAILY 09/15/20 03/22/22 History Aspirin EC [Ecotrin Low Dose] 81 mg PEG/G-TUBE DAILY 02/08/21 03/22/22 History Amitriptyline HCl [Elavil] 25 mg PEG/G-TUBE HS 03/22/22 03/22/22 History Baclofen [Lioresal] 10 mg PEG/G-TUBE TID 03/22/22 03/22/22 History Ipratropium-Albuterol Nebulize 3 ml INHALATION RT-Q6H PRN 03/22/22 03/22/22 History [Duoneb 0.5 mg-3 mg/3 ml Soln] Levothyroxine Sodium 25 mcg PEG/G-TUBE DAILY 03/22/22 03/22/22 History Metoprolol Tartrate [Lopressor] 12.5 mg PEG/G-TUBE DAILY 03/22/22 03/22/22 History Prochlorperazine [Compazine] 10 mg PO DAILY PRN 03/22/22 03/22/22 History Sertraline [Zoloft] 25 mg PEG/G-TUBE DAILY 03/22/22 03/22/22 History busPIRone HCL 5 mg PEG/G-TUBE BID 03/22/22 03/22/22 History lamoTRIgine [LaMICtal] 25 mg PEG/G-TUBE BID 03/22/22 03/22/22 History Allergies Allergy/AdvReac Type Severity Reaction Status Date / Time No Known Allergies Allergy Verified 03/22/22 09:58 Physical Exam Vitals: Vital Signs Temp Pulse Pulse Resp BP BP Pulse Ox 03/23/22 03:50 98.1 F 115 H 24 119/79 96 03/23/22 02:00 115 H 03/22/22 23:50 22 98 03/22/22 23:31 98.9 F 110 H 20 112/76 96 03/22/22 20:25 98.5 F 111 H 22 121/76 100 03/22/22 16:42 124 H 20 03/22/22 16:24 112 H 20 03/22/22 16:04 97 03/22/22 15:35 121 H 24 03/22/22 15:27 98.3 F 121 H 24 123/55 92 L 03/22/22 15:21 96 03/22/22 14:15 120 H 20 96 03/22/22 12:39 03/22/22 11:53 128 H 16 109/70 98 03/22/22 08:42 97.7 F 147 H 18 103/72 94 L FiO2 03/23/22 03:50 03/23/22 02:00 03/22/22 23:50 03/22/22 23:31 03/22/22 20:25 03/22/22 16:42 03/22/22 16:24 03/22/22 16:04 35 03/22/22 15:35 03/22/22 15:27 03/22/22 15:21 28 03/22/22 14:15 03/22/22 12:39 28 03/22/22 11:53 03/22/22 08:42 Intake and Output 03/22/22 03/23/22 03/23/22 22:59 06:59 14:59 Other: Voiding Method Incontinent Weight 68.039 kg Results CBC & Chem 7: 03/23/22 08:29 03/23/22 08:29 Labs: Abnormal Lab Results - Last 24 Hours (Table) 03/22/22 03/22/22 03/22/22 Range/Units 09:23 09:23 10:03 WBC 13.1 H (3.8-10.6) k/uL RBC 4.20 L (4.30-5.90) m/uL Plt Count 96 L (150-450) k/uL Neutrophils # 11.2 H (1.3-7.7) k/uL Lymphocytes # 0.7 L (1.0-4.8) k/uL D-Dimer 2.93 H (<0.60) mg/L FEU Sodium 124 L (137-145) mmol/L Potassium 3.3 L (3.5-5.1) mmol/L Chloride 84 L (98-107) mmol/L Carbon Dioxide 34 H (22-30) mmol/L Creatinine 0.59 L (0.66-1.25) mg/dL Urine Protein (Negative) U Tricyclic Antidepress (NotDetected) 03/22/22 03/22/22 Range/Units 12:20 21:16 WBC (3.8-10.6) k/uL RBC (4.30-5.90) m/uL Plt Count (150-450) k/uL Neutrophils # (1.3-7.7) k/uL Lymphocytes # (1.0-4.8) k/uL D-Dimer (<0.60) mg/L FEU Sodium (137-145) mmol/L Potassium 3.0 L (3.5-5.1) mmol/L Chloride (98-107) mmol/L Carbon Dioxide (22-30) mmol/L Creatinine (0.66-1.25) mg/dL Urine Protein 1+ H (Negative) U Tricyclic Antidepress Detected H (NotDetected) Microbiology - Last 24 Hours (Table) 03/22/22 12:44 Blood Culture Gram Stain - Preliminary Blood 03/22/22 12:44 Blood Culture - Final Blood 03/22/22 12:22 Sputum Culture - Preliminary Sputum Assessment and Plan Plan: 1patient with a positive blood culture with gram-positive cocci in this patient presented to the hospital predominantly with the respiratory symptoms with a CT angiogram showing some bilateral basilar pneumonia questionably pulmonary source however if finalized as staph epi will be disregarded as possible skin contaminant. 2blood cultures will be repeated document clearance of bacteremia. 3vancomycin pharmacy to dose target trough of 15 while watching kidney function and vancomycin trough closely. We will follow on clinical condition and cultures to further adjust medication if needed Thank you for this consultation will follow this patient along with you Time with Patient: Greater than 30
[2022-03-24] MEDS: SODIUM CHLORIDE 0.9% 1,000 ML IV SCH ×3 (06:12→21:12)
[2022-03-24] MEDS: LEVOTHYROXINE 25 MCG TAB PEG/G-TUBE SCH (06:21)
[2022-03-24] MEDS ORDERED: VANCOMYCIN TROUGH DUE 1 EACH MISC MISCELLANE ONE (07:00)
[2022-03-24] MEDS: lamoTRIgine 25 MG TAB PEG/G-TUBE SCH ×2 (08:38→21:12)
[2022-03-24] MEDS: SODIUM CHLORIDE TAB 1 GM TAB PEG/G-TUBE SCH (08:38)
[2022-03-24] MEDS: METOPROLOL SUCCINATE (ER) 25 MG TAB.ER.24H PO SCH (08:38)
[2022-03-24] MEDS: SERTRALINE 25 MG TAB PEG/G-TUBE SCH (08:39)
[2022-03-24] MEDS: CYANOCOBALAMIN 500 MCG TAB PEG/G-TUBE SCH (08:39)
[2022-03-24] MEDS: BACLOFEN 10 MG TAB PEG/G-TUBE SCH ×3 (08:39→21:12)
[2022-03-24] MEDS: busPIRone HCl 5 MG TAB PEG/G-TUBE SCH ×2 (08:39→21:12)
[2022-03-24] MEDS: MIDODRINE 5 MG TAB PEG/G-TUBE SCH (08:39)
[2022-03-24] MEDS: METOPROLOL SUCCINATE (ER) 50 MG TAB.ER.24H PO SCH (08:56)
--- NOTE | 2022-03-24 09:27 | CDI ---
Documentation Clarification Form Date: 03/24/2022 09:08:12 AM From: Daisha Mcdowell CCS, CCDS Admit Date: 03/22/2022 12:11:00 PM Patient Name: Blake Brown Visit Number: [id number] Discharge Date: ATTENTION: The Clinical Documentation Specialists (CDI) and [facility] Coding Staff appreciate your assistance in clarifying documentation. Please respond to the clarification below the line at the bottom and electronically sign. The CDI & [facility] Coding staff will review the response and follow-up if needed. Please note: Queries are made part of the Legal Health Record. If you have any questions, please contact the author of this message via ITS. Dr. Salvador Mitchell: Per the patient's Past Medical History documentation in the 03/22 ED Note, the 03/23 H/P and subsequent Consult notes, the patient has a history of Squamous Cell Carcinoma of the Oral Cavity status post-surgery, radiation & chemotherapy with Dysphagia, has a Tracheostomy & Peg Tube. Based on this information and the findings below, is there an additional diagnosis that is clinically appropriate for this patient? History/Risk Factors per the 03/23 H/P: Squamous Cell Cancer of the oral cavity status post-surgery, chemo & radiation, Current Smoker, COPD, Pneumonia, Thrombocytopenia, Hyponatremia, Chronic Hypotension, NM and Pulmonary Nodules. The patient is not on Home O2. Clinical Indicators: Presented to the ED on 03/22 with Nausea, Vomiting, Diarrhea, Coughing up blood, Abdominal pain x2 days. Admit with Tachycardia, Dehydration and Pneumonia. 03/22 VS: T 97.7, P 147, 128; R 18, BP 103/72, 109/70; PO 94 RA, 96 6L 28% Trach, BMI: 22.8. 03/22 LAB: WBC 13.1, RBC 4.20, Plt Ct 96, neutrophils 11.2, Lymphocytes 0.7; D Dimer 2.93; Na 124, K 3.3, Chl 84, CO2 34, Creatinine 0.59 03/22 CXR: Tracheostomy cannula tip projecting over the trachea. PEG tube. 03/22 CT Chest: No PE. Suspicious for infectious/posterior process primarily involving the lower lobes, left greater right with a focal nodular-like opacity. Hepatic steatosis. Tracheostomy cannula in appropriate position. Treatment: Telemetry, Daily weights, Elevate HOB, I&O, enteral tube feeding, Sputum culture, O2 2 lpm, Tracheostomy Care, IV Na Chl 1,000 mls @ 999 ml/shr q1H, IV Kcl 100 mls @ 100 mls/hr x1, IV Ativan 2 mg x1, INH Ventolin x1, IV Ativan 1 mg 12H/prn x2, IV Ativan 2 mg q10M/prn x1 Is there an additional diagnosis that is clinically appropriate for this patient? [ x ] Chronic Hypoxic Respiratory Failure [ ] Chronic Hypercapnic Respiratory Failure [ ] Other Diagnosis, please specify: [ ] Unable to determine (Template Last Revised: October 2020) MTDD
[2022-03-24] MEDS: VANCOMYCIN 1,250 MG in SODIUM CHLORIDE 0.9% 250 ML IVPB SCH ×3 (09:32→22:52)
[2022-03-24 09:47] LABS: African American GFR (CKD) >90 (>60 ml/min/1.73 sqM); C Reactive Protein 8.1 mg/dL (<1.0); Non-African American GFR(CKD) >90 (>60 ml/min/1.73 sqM)
[2022-03-24] MEDS ORDERED: PROPOFOL 10 MG/ML 20 ML VIAL IV ONE (11:52)
[2022-03-24] MEDS ORDERED: MIDAZOLAM 2 MG/2 ML VIAL ONE (11:52)
[2022-03-24] MEDS ORDERED: LIDOCAINE 2% INJ 20 MG/ML (2 ML VIAL) ONE (11:52)
[2022-03-24] MEDS ORDERED: SODIUM CHLORIDE 0.9% 500 ML 500 ML IV ONE (11:56)
[2022-03-24] MEDS ORDERED: LIDOCAINE 2% INJ 20 MG/ML INTRATRACH ONE ×2 (11:57→11:59)
--- NOTE | 2022-03-24 13:36 | P.PN ---
Subjective Progress Note Date: 03/24/22 Principal diagnosis: Hemoptysis. Pulmonary consult dated 03/23/2022. 61-year-old male with a history of oral cancer, status post tracheostomy, chemotherapy, and radiation therapy, who came into the emergency department complaining of nausea, vomiting, diarrhea, upset stomach, and also coughing up blood. I was consulted for the hemoptysis. The patient is still coughing up bl ood, admixed with some purulent looking sputum. The patient is currently resting comfortably in bed. He is getting saline at 75 mL an hour, and trach collar 35%. He is on vancomycin and Rocephin. Chest x-ray was negative. CAT scan was negative for PE, but did show some infiltrates in the lower lobes. The patient is receiving Jevity 1.5 and 30 mL an hour, with a goal of 60 mL an hour, via a PEG tube. Today we talked about doing a bronchoscopy on him. He is in agreement. The nurse was in the room, and her the conversation. White count 8.3, hemoglobin 12, hematocrit 36.6, and platelet count 69,000. Sodium 131, potassium 3.7, chlorides 97, CO2 29, BUN 9, and creatinine 0.47. N-terminal proBNP was 1390. Blood and sputum cultures thus far are negative. As mentioned, the chest x-ray is negative. The CTA was negative for a central pulmonary embolism, but did suggest some lower lobe inflammatory/infectious process. Progress note dated 03/24/2022. This is a 61-year-old male was seen in room 360. The patient has a history of previous oral cancer, with previous chemotherapy, radiation, and tracheotomy. The patient came in with complaints of coughing up blood, among other things. The patient underwent bronchoscopy today. There is no active bleeding. There is no mass or tumor. There were some secretions. They're pretty fed and scant. Some of the secretions were thick and purulent. We did a formal BAL. The patient was seen earlier, and was found be on 40% trach collar. Tube feedings via a PEG tube were on hold. The only labs today included a creatinine of 0.46 and a C-reactive protein of 8.1. Blood cultures were positive for coag-negative staph, possibly a contaminant. The patient is on ceftriaxone, and vancomycin. Objective - Vital Signs Vital signs: Vital Signs Temp 97.2 F L 03/24/22 12:12 Pulse 89 03/24/22 12:30 Resp 16 03/24/22 12:30 BP 117/68 03/24/22 12:30 Pulse Ox 91 L 03/24/22 12:15 FiO2 35 03/24/22 12:30 Intake & Output 03/23/22 03/24/22 03/24/22 18:59 06:59 18:59 Intake Total 460 500 Output Total 700 850 300 Balance -240 -850 200 Intake: IV 250 Intake, IV Titration 250 250 Amount Vancomycin 1,250 mg In 250 250 Sodium Chloride 0.9% 250 ml @ 125 mls/hr IVPB Q8H [facility] Rx#:[id number] Oral 0 Tube Feeding 210 Output: Urine 700 850 300 Other: Voiding Method Incontinent Urinal Urinal Diaper Diaper Incontinent Incontinent - Exam No acute distress, oriented 3. Trach collar in place at 40 %. HEENT examination is grossly unremarkable. Neck supple. Full range of motion. No adenopathy thyromegaly or neck vein distention. Midline tracheostomy tube noted. Cardiovascular examination reveals regular rhythm rate. S1-S2 normal. No S3 or S4. No discernible murmur noted. Heart rate 89 bpm. Lungs reveal coarse bilateral rhonchi. Breath sounds equal bilaterally. No wheezes. No crackles.Saturations 95 %. Abdomen soft,PEG tube noted. Extremities are intact. No cyanosis clubbing or edema. Skin is without rash or lesion. Neurologic examination is brief but nonfocal. - Labs CBC & Chem 7: 03/23/22 08:29 03/24/22 09:03 Labs: Abnormal Lab Results - Last 24 Hours (Table) 03/24/22 Range/Units 09:03 Creatinine 0.46 L (0.66-1.25) mg/dL C-Reactive Protein 8.1 H (<1.0) mg/dL Microbiology - Last 24 Hours (Table) 03/22/22 12:22 Gram Stain - Preliminary Sputum Sputum Culture - Preliminary 03/22/22 12:30 Blood Culture Gram Stain - Preliminary Blood 03/22/22 12:44 Blood Culture Gram Stain - Preliminary Blood Blood Culture - Preliminary Coagulase Negative Staph 03/22/22 12:30 Blood Culture - Final Blood Assessment and Plan Assessment: Hemoptysis, likely secondary to bibasilar pneumonia. History of oral cancer, status post surgery, chemoradiation, and tracheostomy. History of pulmonary nodules. Status post PEG tube placement. Chronic back pain. History of ongoing tobacco use. Plan: Plan dated 03/23/2022. The patient will undergo bronchoscopy and airway examination tomorrow. The patient is ready on good antibiotics in the form of vancomycin and Rocephin. He's getting tube feeds with Jevity, at 30 mL an hour. He is on a 35% trach collar. He is in no distress from the respiratory standpoint. Labs, x-rays, and medications are all reviewed. Prognosis is guarded. We will continue to follow and make recommendations along the way. Plan dated 03/24/2022. The patient appears to be doing reasonably well. He no longer was coughing up hemoptysis even before the bronchoscopy. On endobronchial evaluation, there was no active bleeding, endobronchial mass, tumor, or any other thing that would explain the bleeding. He did have a fair amount of purulent secretions. The bleeding may relate to his diagnosis of pneumonia. Clinically, the patient tolerated the procedure well. He was recovered and will go back to his room. He did do a BAL, the right middle lobe. We will await the results. The fluid was sent for cytology, microbiology, and cell count with differential. Time with Patient: Less than 30
--- NOTE | 2022-03-24 13:45 | P.PN ---
Subjective This is a pleasant 61 year old male with a past medical history of known 3 vessel coronary artery disease (chronic total occlusion of the mid circumflex with left to left collaterals to distal circumflex, mild to moderate disease involving left main and LAD) Cath from 2018 No intervention and patient not a candidate for revascularization, ischemic cardiomyopathy, squamous cell carcinoma of the tongue status post tracheostomy tube placement, and the PEG tube insertion. 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 He did see Dr. Caballero in 2018. We've been asked to see the patient in consultation for episode of NSVT. Patient presented to the ER with non-cardiac symptoms of abdominal pain, constipation, and hemoptysis. On 03/22 night, patient had an 18 beat run of NSVT. He was asymptomatic. Patient denies any chest pain, shortness of breath, lightheadedness, dizziness, palpitations. 03/24/2022 Patient seen and examined at bedside, no distress. He denies any chest pain, shortness of breath, palpitations. Denies any symptoms of orthopnea or PND. Echocardiogram revealed EF of 5%. Telemetry reviewed patient in sinus mechanism with heart rates 90s/low 100s, no further episodes of NSVT PHYSICAL EXAMINATION Vitals reviewed CONSTITUTIONAL: No apparent distress. HEENT: Head is normocephalic. Neck Supple. No JVD. CHEST EXAMINATION: Lungs are diminished to auscultation. No chest wall tenderness is noted on palpation or with deep breathing. HEART EXAMINATION: Regular rate and rhythm. S1, S2 heard. No murmurs, gallops or rub. ABDOMEN: Soft, nontender. Positive bowel sounds. EXTREMITIES: 2+ peripheral pulses, no lower extremity edema and no calf tenderness. NEUROLOGIC EXAMINATION: Patient is awake, alert and oriented x3. ASSESSMENT NSVT, 1 episode on 03/22. 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 Signing provider agrees with the documented findings, assessment, and plan of care. Objective - Vital Signs Vital signs: Vital Signs Temp 97.2 F L 03/24/22 12:12 Pulse 89 03/24/22 12:30 Resp 16 03/24/22 12:30 BP 117/68 03/24/22 12:30 Pulse Ox 91 L 03/24/22 12:15 FiO2 35 03/24/22 12:30 Intake & Output 03/23/22 03/24/22 03/24/22 18:59 06:59 18:59 Intake Total 460 500 Output Total 700 850 300 Balance -240 -850 200 Intake: IV 250 Intake, IV Titration 250 250 Amount Vancomycin 1,250 mg In 250 250 Sodium Chloride 0.9% 250 ml @ 125 mls/hr IVPB Q8H [facility] Rx#:[id number] Oral 0 Tube Feeding 210 Output: Urine 700 850 300 Other: Voiding Method Incontinent Urinal Urinal Diaper Diaper Incontinent Incontinent - Labs CBC & Chem 7: 03/23/22 08:29 03/24/22 09:03 Labs: Abnormal Lab Results - Last 24 Hours (Table) 03/24/22 Range/Units 09:03 Creatinine 0.46 L (0.66-1.25) mg/dL C-Reactive Protein 8.1 H (<1.0) mg/dL Microbiology - Last 24 Hours (Table) 03/22/22 12:22 Gram Stain - Preliminary Sputum Sputum Culture - Preliminary 03/22/22 12:30 Blood Culture Gram Stain - Preliminary Blood 03/22/22 12:44 Blood Culture Gram Stain - Preliminary Blood Blood Culture - Preliminary Coagulase Negative Staph
--- NOTE | 2022-03-24 13:57 | PCN ---
PROCEDURE NOTE PROCEDURES: Bronchoscopy, airway examination, therapeutic lavage, and bronchoalveolar lavage. PREOPERATIVE DIAGNOSES: 1. Pneumonia. 2. Hemoptysis. POSTOPERATIVE DIAGNOSES: 1. Pneumonia. 2. Hemoptysis. DESCRIPTION OF PROCEDURE: The patient's procedure was done in room #1 [facility]. There was informed consent and universal time-out. Yousif Shell CRNA provided general anesthesia. After the patient was adequately sedated and being fully monitored, the bronchoscope was inserted through the tracheostomy tube after the inner cannula was removed. There were thick secretions noted in the distal and mid trachea. They were suctioned with the aid of saline lavage. The trachea was topicalized with lidocaine. The right and left mainstem were topicalized. There was a thorough evaluation of both lungs, including the right upper lobe and its 3 segments, the right middle lobe and its 2 segments, the right lower lobe and its 5 segments, the left upper lobe proper and its 2 segments, lingula and its 2 segments, and left lower lobe and its 4 segments. There was no active bleeding. There was no mass or tumor. There were thick secretions noted throughout, they were quite purulent. They were difficult to suction. Saline was used. The mucosa was mildly erythematous. There was some mild vascular engorgement. The bronchoscope was wedged into the right middle lobe. We did a formal BAL. The patient tolerated the procedure well. The fluid will be sent for analysis including cytology and microbiology, also CBC with differential. The patient tolerated the procedure well, will be recovered and taken back to his room. MMKAYA / STEPHANIEN: [id number] / ZAINAB
--- NOTE | 2022-03-24 14:33 | P.PN ---
Subjective Progress Note Date: 03/24/22 H&P Date: 03/23/22 Chief Complaint: Hemoptysis, tachycardia This is a 61-year-old gentleman with past medical history of carcinoma of the tongue, squamous cell CVA, tracheostomy, PEG tube, chemotherapy and radiation therapy, daily alcohol abuse, ongoing nicotine dependence, marijuana use, COPD,CAD, seizure disorder and multiple other medical issues presented to the ER with complaints of hemoptysis with nausea starting yesterday morning.sinus tachycardia-from 100s. Denies fever or chills. denies vomiting or diarrhea. Denies chest pain, palpitations. CT negative for PE, suggestive of bilateral lower lobe infiltrates. Preliminary Blood cultures reporting gram-positive cocci in groups. Afebrile normal WBC, hemoglobin 12, platelets 69, MCV 102.9, sodium improving, 131, potassium increased to 3.7, bicarb 29, renal function stable magnesium 1.8. UA negative, toxicology screen detecting tricyclic antidepressants. BNP 1390. Sputum culture pending. 03/24/2022 maintained on IV antibiotics of vancomycin. Blood culture preliminary reporting coagulase-negative staph, suspect contaminant. Repeat blood culture pending. No active bleeding, mild brownish mucousy drainage on tracheostomy dressing. Better strength. Denies shakes, chills, sweats. Denies nausea vomiting or diarrhea. Maintaining O2 sats in the high 90s on 40% trach collar. Bronchoscopy pending Objective - Vital Signs Vital signs: Vital Signs Temp 97.2 F L 03/24/22 12:12 Pulse 89 03/24/22 12:30 Resp 16 03/24/22 14:19 BP 117/68 03/24/22 12:30 Pulse Ox 91 L 03/24/22 12:15 FiO2 35 03/24/22 12:30 Intake & Output 03/23/22 03/24/22 03/24/22 18:59 06:59 18:59 Intake Total 460 500 Output Total 700 850 300 Balance -240 -850 200 Intake: IV 250 Intake, IV Titration 250 250 Amount Vancomycin 1,250 mg In 250 250 Sodium Chloride 0.9% 250 ml @ 125 mls/hr IVPB Q8H [facility] Rx#:[id number] Oral 0 Tube Feeding 210 Output: Urine 700 850 300 Other: Voiding Method Incontinent Urinal Urinal Diaper Diaper Incontinent Incontinent - Exam - Exam -GENERAL: alert and oriented 3, on trach collar. HEENT: Pupils are round and equally reacting to light. EOMI. No scleral icterus. No conjunctival pallor. Normocephalic, atraumatic. Neck supple, no JVD CARDIOVASCULAR: S1 and S2 present. No murmurs, rubs, or gallops. -PULMONARY: Less Scattered rhonchi, no wheezing or crackles. tracheostomy is in place ABDOMEN: Soft, nontender, nondistended, normoactive bowel sounds. No palpable organomegaly. PEG tube present EXTREMITIES: No cyanosis, clubbing, or pedal edema. NEUROLOGICAL: Gross neurological examination did not reveal any focal deficits. SKIN: No rashes. Warm and dry. - Labs CBC & Chem 7: 03/23/22 08:29 03/24/22 09:03 Labs: Abnormal Lab Results - Last 24 Hours (Table) 03/24/22 Range/Units 09:03 Creatinine 0.46 L (0.66-1.25) mg/dL C-Reactive Protein 8.1 H (<1.0) mg/dL Microbiology - Last 24 Hours (Table) 03/22/22 12:22 Gram Stain - Preliminary Sputum Sputum Culture - Preliminary 03/22/22 12:30 Blood Culture Gram Stain - Preliminary Blood 03/22/22 12:44 Blood Culture Gram Stain - Preliminary Blood Blood Culture - Preliminary Coagulase Negative Staph Assessment and Plan Assessment: Hemoptysis, possiblly secondary to bilateral pneumonia Possible bacteremia, cultures pending Dehydration Sinus tachycardia Hypokalemia Hyponatremia, hypovolemic History of carcinoma of the tongue, squamous cell carcinoma, status post surgical repair, chemo, radiation Mild to moderate protein calorie malnutrition Alcohol abuse, via PEG Ongoing nicotine dependence Plan: Continue on current medication regime ,monitoring and symptomatic treatment. Bronchoscopy pending Maintain IV antibiotics vancomycin, Rocephin. Pulmonary discussing potential bronchoscopy.WA protocol. Smoking cessation and alcohol abstinence reinforced. Prognosis guarded. 03/24/2022, bronchoscopy pending. Repeat blood culture in progress. Antibiotics as per infectious disease. The impression and plan of care has been dictated as directed. : I performed a history and examination of this patient, discussed the same with the dictator. I agree with the dictator's note ,documented as a scribe. Any additional findings or plans will be noted. P
[2022-03-24] MEDS: AMITRIPTYLINE HCL 25 MG TAB PEG/G-TUBE SCH (21:12)
[2022-03-25] MEDS: LEVOTHYROXINE 25 MCG TAB PEG/G-TUBE SCH (06:50)
[2022-03-25] MEDS: SODIUM CHLORIDE TAB 1 GM TAB PEG/G-TUBE SCH (08:05)
[2022-03-25] MEDS: CYANOCOBALAMIN 500 MCG TAB PEG/G-TUBE SCH (08:05)
[2022-03-25] MEDS: lamoTRIgine 25 MG TAB PEG/G-TUBE SCH ×2 (08:05→19:49)
[2022-03-25] MEDS: busPIRone HCl 5 MG TAB PEG/G-TUBE SCH ×2 (08:05→19:49)
[2022-03-25] MEDS: BACLOFEN 10 MG TAB PEG/G-TUBE SCH ×3 (08:05→19:49)
[2022-03-25] MEDS: SERTRALINE 25 MG TAB PEG/G-TUBE SCH (08:05)
[2022-03-25] MEDS: METOPROLOL SUCCINATE (ER) 50 MG TAB.ER.24H PO SCH (08:06)
[2022-03-25] MEDS: VANCOMYCIN 1,250 MG in SODIUM CHLORIDE 0.9% 250 ML IVPB SCH (09:08)
[2022-03-25] MEDS: SPIRONOLACTONE 25 MG TAB PO SCH (10:04)
--- NOTE | 2022-03-25 11:52 | P.PN ---
Subjective Progress Note Date: 03/25/22 Principal diagnosis: Hemoptysis. Pulmonary consult dated 03/23/2022. 61-year-old male with a history of oral cancer, status post tracheostomy, chemotherapy, and radiation therapy, who came into the emergency department complaining of nausea, vomiting, diarrhea, upset stomach, and also coughing up blood. I was consulted for the hemoptysis. The patient is still coughing up bl ood, admixed with some purulent looking sputum. The patient is currently resting comfortably in bed. He is getting saline at 75 mL an hour, and trach collar 35%. He is on vancomycin and Rocephin. Chest x-ray was negative. CAT scan was negative for PE, but did show some infiltrates in the lower lobes. The patient is receiving Jevity 1.5 and 30 mL an hour, with a goal of 60 mL an hour, via a PEG tube. Today we talked about doing a bronchoscopy on him. He is in agreement. The nurse was in the room, and her the conversation. White count 8.3, hemoglobin 12, hematocrit 36.6, and platelet count 69,000. Sodium 131, potassium 3.7, chlorides 97, CO2 29, BUN 9, and creatinine 0.47. N-terminal proBNP was 1390. Blood and sputum cultures thus far are negative. As mentioned, the chest x-ray is negative. The CTA was negative for a central pulmonary embolism, but did suggest some lower lobe inflammatory/infectious process. Progress note dated 03/24/2022. This is a 61-year-old male was seen in room 360. The patient has a history of previous oral cancer, with previous chemotherapy, radiation, and tracheotomy. The patient came in with complaints of coughing up blood, among other things. The patient underwent bronchoscopy today. There is no active bleeding. There is no mass or tumor. There were some secretions. They're pretty fed and scant. Some of the secretions were thick and purulent. We did a formal BAL. The patient was seen earlier, and was found be on 40% trach collar. Tube feedings via a PEG tube were on hold. The only labs today included a creatinine of 0.46 and a C-reactive protein of 8.1. Blood cultures were positive for coag-negative staph, possibly a contaminant. The patient is on ceftriaxone, and vancomycin. Progress note dated 03/25/2022. 61-year-old male who was seen again today in room 360. The patient underwent bronchoscopy yesterday. The patient did have secretions in his lower respiratory tract, but there was no bleeding. There is no mass or tumor. We did do a BAL of the right middle lobe, and no samples were sent for evaluation. Currently, the patient is on Jevity 60 mL an hour, he is receiving saline at 70 mL an hour, and his trach collar set of 40%. We are going to DC his vancomycin. No new labs today. Blood cultures are showing evidence of coag-negative staph. Objective - Vital Signs Vital signs: Vital Signs Temp 96.9 F L 03/25/22 07:06 Pulse 100 03/25/22 07:06 Resp 18 03/25/22 09:43 BP 133/81 03/25/22 07:06 Pulse Ox 96 03/25/22 07:06 FiO2 35 03/25/22 08:26 Intake & Output 03/24/22 03/25/22 03/25/22 18:59 06:59 18:59 Intake Total 1700 0 Output Total 750 575 400 Balance 950 -575 -400 Weight 68.039 kg Intake: IV 250 Intake, IV Titration 1450 Amount Sodium Chloride 0.9% 1, 900 000 ml @ 75 mls/hr IV . [id number] [facility] Rx#:[id number] Vancomycin 1,250 mg In 500 Sodium Chloride 0.9% 250 ml @ 125 mls/hr IVPB Q8H [facility] Rx#:[id number] cefTRIAXone 2 gm In 50 Sodium Chloride 0.9% 50 ml @ 100 mls/hr IVPB Q24HR [facility] Rx#:[id number] Oral 0 0 Output: Urine 750 575 400 Other: Voiding Method Urinal Urinal Urinal Diaper Diaper Diaper Incontinent Incontinent Incontinent - Exam No acute distress, oriented 3. Trach collar in place at 40 %. HEENT examination is grossly unremarkable. Neck supple. Full range of motion. No adenopathy thyromegaly or neck vein distention. Midline tracheostomy tube noted. Cardiovascular examination reveals regular rhythm rate. S1-S2 normal. No S3 or S4. No discernible murmur noted. Heart rate 91 bpm. Lungs reveal coarse bilateral rhonchi. Breath sounds equal bilaterally. No wheezes. No crackles.Saturations 96 %. Abdomen soft, PEG tube noted. Extremities are intact. No cyanosis clubbing or edema. Skin is without rash or lesion. Neurologic examination is brief but nonfocal. - Labs CBC & Chem 7: 03/23/22 08:29 03/24/22 09:03 Labs: Abnormal Lab Results - Last 24 Hours (Table) 03/24/22 Range/Units 09:03 Procalcitonin 0.10 H (0.02-0.09) ng/mL Microbiology - Last 24 Hours (Table) 03/24/22 09:03 Blood Culture - Preliminary Blood No Growth after 24 hours 03/22/22 12:44 Blood Culture Gram Stain - Preliminary Blood Blood Culture - Preliminary Coagulase Negative Staph 03/22/22 12:30 Blood Culture Gram Stain - Preliminary Blood Blood Culture - Preliminary Coagulase Negative Staph 03/22/22 12:22 Gram Stain - Preliminary Sputum Sputum Culture - Preliminary Assessment and Plan Assessment: Hemoptysis, likely secondary to bibasilar pneumonia. S/P bronchoscopy, and BAL, right middle lobe (03/24), with sampling currently pending. History of oral cancer, status post surgery, chemoradiation, and tracheostomy. History of pulmonary nodules. Status post PEG tube placement. Chronic back pain. History of ongoing tobacco use. Plan: Plan dated 03/23/2022. The patient will undergo bronchoscopy and airway examination tomorrow. The patient is ready on good antibiotics in the form of vancomycin and Rocephin. He's getting tube feeds with Jevity, at 30 mL an hour. He is on a 35% trach collar. He is in no distress from the respiratory standpoint. Labs, x-rays, and medications are all reviewed. Prognosis is guarded. We will continue to follow and make recommendations along the way. Plan dated 03/24/2022. The patient appears to be doing reasonably well. He no longer was coughing up hemoptysis even before the bronchoscopy. On endobronchial evaluation, there was no active bleeding, endobronchial mass, tumor, or any other thing that would explain the bleeding. He did have a fair amount of purulent secretions. The bleeding may relate to his diagnosis of pneumonia. Clinically, the patient tolerated the procedure well. He was recovered and will go back to his room. He did do a BAL, the right middle lobe. We will await the results. The fluid was sent for cytology, microbiology, and cell count with differential. Plan dated 03/25/2022. See my note above. The patient's bronchoscopy reveals evidence of secretions, most of which were purulent, but no active bleeding. There is no dominant mass or tumor. We did a BAL of the right middle lobe. It was sent to laboratory for analysis. Clinically, the patient appears stable. He is getting his trach collar 40% and his tube feeds at goal. He is also getting saline at 70 mL an hour. The vancomycin was discontinued. Additional recommendations and suggestions are forthcoming. Prognosis is guarded. Time with Patient: Less than 30
[2022-03-25 12:07] LABS: African American GFR (CKD) >90 (>60 ml/min/1.73 sqM); Anion Gap 5 mmol/L; Blood Urea Nitrogen 7 mg/dL (9-20); Calcium 7.9 mg/dL (8.4-10.2); Carbon Dioxide 29 mmol/L (22-30); Chloride 98 mmol/L (98-107); Glucose 124 mg/dL (74-99); Non-African American GFR(CKD) >90 (>60 ml/min/1.73 sqM); Potassium 3.2 mmol/L (3.5-5.1); Sodium 132 mmol/L (137-145)
--- NOTE | 2022-03-25 13:33 | P.PN ---
Subjective This is a pleasant 61 year old male with a past medical history of known 3 vessel coronary artery disease (chronic total occlusion of the mid circumflex with left to left collaterals to distal circumflex, mild to moderate disease involving left main and LAD) Cath from 2018 No intervention and patient not a candidate for revascularization, ischemic cardiomyopathy, squamous cell carcinoma of the tongue status post tracheostomy tube placement, and the PEG tube insertion. 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 He did see Dr. Caballero in 2018. We've been asked to see the patient in consultation for episode of NSVT. Patient presented to the ER with non-cardiac symptoms of abdominal pain, constipation, and hemoptysis. On 03/22 night, patient had an 18 beat run of NSVT. He was asymptomatic. Patient denies any chest pain, shortness of breath, lightheadedness, dizziness, palpitations. 03/25/2022 Patient seen and examined at bedside, no distress. He denies any chest pain, shortness of breath, palpitations. Denies any symptoms of orthopnea or PND. Echocardiogram revealed EF of 5%. Telemetry reviewed patient in sinus mechanism with heart rates 90s/low 100s, no further episodes of NSVT PHYSICAL EXAMINATION Vitals reviewed CONSTITUTIONAL: No apparent distress. HEENT: Head is normocephalic. Neck Supple. No JVD. CHEST EXAMINATION: Lungs are diminished to auscultation. No chest wall tenderness is noted on palpation or with deep breathing. HEART EXAMINATION: Regular rate and rhythm. S1, S2 heard. No murmurs, gallops or rub. ABDOMEN: Soft, nontender. Positive bowel sounds. EXTREMITIES: 2+ peripheral pulses, no lower extremity edema and no calf tenderness. NEUROLOGIC EXAMINATION: Patient is awake, alert and oriented x3. ASSESSMENT NSVT, 1 episode on 03/22. 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 We will follow the patient as needed. Follow up outpatient in the office with Dr. Caballero. Nurse practitioner note has been reviewed by physician. Signing provider agrees with the documented findings, assessment, and plan of care. Objective - Vital Signs Vital signs: Vital Signs Temp 97.3 F L 03/25/22 12:25 Pulse 95 03/25/22 12:25 Resp 18 03/25/22 12:25 BP 123/84 03/25/22 12:25 Pulse Ox 95 03/25/22 12:25 FiO2 35 03/25/22 08:26 Intake & Output 03/24/22 03/25/22 03/25/22 18:59 06:59 18:59 Intake Total 1700 0 Output Total 750 575 680 Balance 950 575 -680 Weight 68.039 kg Intake: IV 250 Intake, IV Titration 1450 Amount Sodium Chloride 0.9% 1, 900 000 ml @ 75 mls/hr IV . [id number] [facility] Rx#:[id number] Vancomycin 1,250 mg In 500 Sodium Chloride 0.9% 250 ml @ 125 mls/hr IVPB Q8H [facility] Rx#:[id number] cefTRIAXone 2 gm In 50 Sodium Chloride 0.9% 50 ml @ 100 mls/hr IVPB Q24HR [facility] Rx#:[id number] Oral 0 0 Output: Urine 750 575 680 Other: Voiding Method Urinal Urinal Urinal Diaper Diaper Diaper Incontinent Incontinent Incontinent - Labs CBC & Chem 7: 03/23/22 08:29 03/25/22 10:54 Labs: Abnormal Lab Results - Last 24 Hours (Table) 03/24/22 03/25/22 Range/Units 09:03 10:54 Sodium 132 L (137-145) mmol/L Potassium 3.2 L (3.5-5.1) mmol/L BUN 7 L (9-20) mg/dL Creatinine 0.47 L (0.66-1.25) mg/dL Glucose 124 H (74-99) mg/dL Calcium 7.9 L (8.4-10.2) mg/dL Procalcitonin 0.10 H (0.02-0.09) ng/mL Microbiology - Last 24 Hours (Table) 03/24/22 09:03 Blood Culture - Preliminary Blood No Growth after 24 hours 03/22/22 12:44 Blood Culture Gram Stain - Preliminary Blood Blood Culture - Preliminary Coagulase Negative Staph 03/22/22 12:30 Blood Culture Gram Stain - Preliminary Blood Blood Culture - Preliminary Coagulase Negative Staph 03/22/22 12:22 Gram Stain - Preliminary Sputum Sputum Culture - Preliminary
--- NOTE | 2022-03-25 15:22 | P.PN ---
Subjective Progress Note Date: 03/25/22 H&P Date: 03/23/22 Chief Complaint: Hemoptysis, tachycardia This is a 61-year-old gentleman with past medical history of carcinoma of the tongue, squamous cell CVA, tracheostomy, PEG tube, chemotherapy and radiation therapy, daily alcohol abuse, ongoing nicotine dependence, marijuana use, COPD,CAD, seizure disorder and multiple other medical issues presented to the ER with complaints of hemoptysis with nausea starting yesterday morning.sinus tachycardia-from 100s. Denies fever or chills. denies vomiting or diarrhea. Denies chest pain, palpitations. CT negative for PE, suggestive of bilateral lower lobe infiltrates. Preliminary Blood cultures reporting gram-positive cocci in groups. Afebrile normal WBC, hemoglobin 12, platelets 69, MCV 102.9, sodium improving, 131, potassium increased to 3.7, bicarb 29, renal function stable magnesium 1.8. UA negative, toxicology screen detecting tricyclic antidepressants. BNP 1390. Sputum culture pending. 03/24/2022 maintained on IV antibiotics of vancomycin. Blood culture preliminary reporting coagulase-negative staph, suspect contaminant. Repeat blood culture pending. No active bleeding, mild brownish mucousy drainage on tracheostomy dressing. Better strength. Denies shakes, chills, sweats. Denies nausea vomiting or diarrhea. Maintaining O2 sats in the high 90s on 40% trach collar. Bronchoscopy pending. 03/25/22 underwent bronchoscopy yesterday reporting thick purulent secretions ,no active bleeding, no mass or tumor. Cytology pending. Tolerated procedure well. Maintained on IV antibiotics of ceftriaxone, blood cultures reporting coagulase-negative staph. Telemetry sinus -ST, low 100s.Echo reporting EF of 20-25%, continues on metoprolol, lisinopril and Aldactone. Objective - Vital Signs Vital signs: Vital Signs Temp 97.3 F L 03/25/22 12:25 Pulse 95 03/25/22 12:25 Resp 18 03/25/22 14:00 BP 123/84 03/25/22 12:25 Pulse Ox 95 03/25/22 12:25 FiO2 35 03/25/22 08:26 Intake & Output 03/24/22 03/25/22 03/25/22 18:59 06:59 18:59 Intake Total 1700 0 Output Total 750 575 680 Balance 950 -575 -680 Weight 68.039 kg Intake: IV 250 Intake, IV Titration 1450 Amount Sodium Chloride 0.9% 1, 900 000 ml @ 75 mls/hr IV . [id number] [facility] Rx#:[id number] Vancomycin 1,250 mg In 500 Sodium Chloride 0.9% 250 ml @ 125 mls/hr IVPB Q8H [facility] Rx#:[id number] cefTRIAXone 2 gm In 50 Sodium Chloride 0.9% 50 ml @ 100 mls/hr IVPB Q24HR [facility] Rx#:[id number] Oral 0 0 Output: Urine 750 575 680 Other: Voiding Method Urinal Urinal Urinal Diaper Diaper Diaper Incontinent Incontinent Incontinent - Exam - Exam -GENERAL: alert and oriented 3, on trach collar. HEENT: PEARRl. EOMI. No scleral icterus. No conjunctival pallor. Neck: supple, no JVD CARDIOVASCULAR: S1 and S2 present. No murmurs, rubs, or gallops. -PULMONARY: Scattered rhonchi, tracheostomy present. ABDOMEN: Soft, nontender, nondistended, normoactive bowel sounds. No palpable organomegaly. PEG tube present. EXTREMITIES: No cyanosis, clubbing, or pedal edema. NEUROLOGICAL: Gross neurological examination did not reveal any focal deficits. SKIN: No rashes. Warm and dry. - Labs CBC & Chem 7: 03/23/22 08:29 03/25/22 10:54 Labs: Abnormal Lab Results - Last 24 Hours (Table) 03/25/22 Range/Units 10:54 Sodium 132 L (137-145) mmol/L Potassium 3.2 L (3.5-5.1) mmol/L BUN 7 L (9-20) mg/dL Creatinine 0.47 L (0.66-1.25) mg/dL Glucose 124 H (74-99) mg/dL Calcium 7.9 L (8.4-10.2) mg/dL Microbiology - Last 24 Hours (Table) 03/24/22 09:03 Blood Culture - Preliminary Blood No Growth after 24 hours 03/22/22 12:44 Blood Culture Gram Stain - Preliminary Blood Blood Culture - Preliminary Coagulase Negative Staph 03/22/22 12:30 Blood Culture Gram Stain - Preliminary Blood Blood Culture - Preliminary Coagulase Negative Staph 03/22/22 12:22 Gram Stain - Preliminary Sputum Sputum Culture - Preliminary Assessment and Plan Assessment: Hemoptysis, possiblly secondary to bilateral pneumonia, status post bronchoscopy, cytology pending. Dehydration NSVT Sinus tachycardia Hypokalemia Hyponatremia, hypovolemic History of carcinoma of the tongue, squamous cell carcinoma, status post surgical repair, chemo, radiation Mild to moderate protein calorie malnutrition Alcohol abuse, via PEG Ongoing nicotine dependence Plan: Continue on current medication regime ,monitoring and symptomatic treatment. Cytology pending. Maintain IV antibiotics. Smoking cessation and alcohol abstinence reinforced. Discharge planning soon, pending pulmonary and cardiology final DC recommendations and clearance. The impression and plan of care has been dictated as directed. : I performed a history and examination of this patient, discussed the same with the dictator. I agree with the dictator's note ,documented as a scribe. Any additional findings or plans will be noted. P
[2022-03-25] MEDS: AMITRIPTYLINE HCL 25 MG TAB PEG/G-TUBE SCH (19:49)
[2022-03-25] MEDS: SODIUM CHLORIDE 0.9% 1,000 ML IV SCH (22:09)
[2022-03-26 00:07] LABS: Glucose,Whole Blood 135 mg/dL (70-110)
[2022-03-26 06:14] LABS: Glucose,Whole Blood 119 mg/dL (70-110)
[2022-03-26] MEDS: LEVOTHYROXINE 25 MCG TAB PEG/G-TUBE SCH (06:45)
[2022-03-26 09:21] LABS: African American GFR (CKD) >90 (>60 ml/min/1.73 sqM); Non-African American GFR(CKD) >90 (>60 ml/min/1.73 sqM)
[2022-03-26] MEDS ORDERED: CEFDINIR ORAL SUSP 1,500 MG/60 ML BOTTLE PO SCH (09:45)
[2022-03-26] MEDS: SPIRONOLACTONE 25 MG TAB PO SCH (09:56)
[2022-03-26] MEDS: METOPROLOL SUCCINATE (ER) 50 MG TAB.ER.24H PO SCH (09:56)
[2022-03-26] MEDS: lamoTRIgine 25 MG TAB PEG/G-TUBE SCH ×2 (09:56→20:28)
[2022-03-26] MEDS: BACLOFEN 10 MG TAB PEG/G-TUBE SCH ×3 (09:57→20:28)
[2022-03-26] MEDS: SERTRALINE 25 MG TAB PEG/G-TUBE SCH (09:57)
[2022-03-26] MEDS: CYANOCOBALAMIN 500 MCG TAB PEG/G-TUBE SCH (09:57)
[2022-03-26] MEDS: busPIRone HCl 5 MG TAB PEG/G-TUBE SCH ×2 (09:57→20:28)
[2022-03-26] MEDS: SODIUM CHLORIDE TAB 1 GM TAB PEG/G-TUBE SCH (09:57)
[2022-03-26] MEDS: SODIUM CHLORIDE 0.9% 1,000 ML IV SCH ×2 (10:15→20:28)
--- NOTE | 2022-03-26 11:21 | P.PN ---
Subjective Progress Note Date: 03/26/22 Principal diagnosis: Hemoptysis. Pulmonary consult dated 03/23/2022. 61-year-old male with a history of oral cancer, status post tracheostomy, chemotherapy, and radiation therapy, who came into the emergency department complaining of nausea, vomiting, diarrhea, upset stomach, and also coughing up blood. I was consulted for the hemoptysis. The patient is still coughing up bl ood, admixed with some purulent looking sputum. The patient is currently resting comfortably in bed. He is getting saline at 75 mL an hour, and trach collar 35%. He is on vancomycin and Rocephin. Chest x-ray was negative. CAT scan was negative for PE, but did show some infiltrates in the lower lobes. The patient is receiving Jevity 1.5 and 30 mL an hour, with a goal of 60 mL an hour, via a PEG tube. Today we talked about doing a bronchoscopy on him. He is in agreement. The nurse was in the room, and her the conversation. White count 8.3, hemoglobin 12, hematocrit 36.6, and platelet count 69,000. Sodium 131, potassium 3.7, chlorides 97, CO2 29, BUN 9, and creatinine 0.47. N-terminal proBNP was 1390. Blood and sputum cultures thus far are negative. As mentioned, the chest x-ray is negative. The CTA was negative for a central pulmonary embolism, but did suggest some lower lobe inflammatory/infectious process. Progress note dated 03/24/2022. This is a 61-year-old male was seen in room 360. The patient has a history of previous oral cancer, with previous chemotherapy, radiation, and tracheotomy. The patient came in with complaints of coughing up blood, among other things. The patient underwent bronchoscopy today. There is no active bleeding. There is no mass or tumor. There were some secretions. They're pretty fed and scant. Some of the secretions were thick and purulent. We did a formal BAL. The patient was seen earlier, and was found be on 40% trach collar. Tube feedings via a PEG tube were on hold. The only labs today included a creatinine of 0.46 and a C-reactive protein of 8.1. Blood cultures were positive for coag-negative staph, possibly a contaminant. The patient is on ceftriaxone, and vancomycin. Progress note dated 03/25/2022. 61-year-old male who was seen again today in room 360. The patient underwent bronchoscopy yesterday. The patient did have secretions in his lower respiratory tract, but there was no bleeding. There is no mass or tumor. We did do a BAL of the right middle lobe, and no samples were sent for evaluation. Currently, the patient is on Jevity 60 mL an hour, he is receiving saline at 70 mL an hour, and his trach collar set of 40%. We are going to DC his vancomycin. No new labs today. Blood cultures are showing evidence of coag-negative staph. Progress note dated 03/26/2022. 61-year-old male seen again in room 360. The patient underwent bronchoscopy on March 24. He did have significant secretions in her lower respiratory tract, but no active bleeding. There is no mass or tumor. We did do a BAL of the right middle lobe. Samples are currently pending. He is receiving saline at 70 mL an hour, and Jevity at 80 mL an hour. His trach collar is set at 40%. Clinically he looks well. Creatinine today is 0.48. Glucose 119. Microbiologic studies show coag-negative staph in the blood, and oxacillin sensitive staph aureus in the sputum. Objective - Vital Signs Vital signs: Vital Signs Temp 98.3 F 03/26/22 04:00 Pulse 70 03/26/22 04:00 Resp 20 03/26/22 04:00 BP 126/84 03/26/22 04:00 Pulse Ox 96 03/26/22 04:00 FiO2 35 03/26/22 08:54 Intake & Output 03/25/22 03/26/22 03/26/22 18:59 06:59 18:59 Intake Total 510 Output Total 680 Balance -680 510 Weight 68.039 kg Intake: Tube Feeding 510 Output: Urine 680 Other: Voiding Method Urinal Urinal Diaper Diaper Incontinent Incontinent - Exam No acute distress, oriented 3. Trach collar in place at 40 %. HEENT examination is grossly unremarkable. Neck supple. Full range of motion. No adenopathy thyromegaly or neck vein distention. Midline tracheostomy tube noted. Cardiovascular examination reveals regular rhythm rate. S1-S2 normal. No S3 or S4. No discernible murmur noted. Heart rate 70 bpm. Lungs reveal coarse bilateral rhonchi. Breath sounds equal bilaterally. No wheezes. No crackles.Saturations 97 %. Abdomen soft, PEG tube noted. Extremities are intact. No cyanosis clubbing or edema. Skin is without rash or lesion. Neurologic examination is brief but nonfocal. - Labs CBC & Chem 7: 03/23/22 08:29 03/26/22 08:46 Labs: Abnormal Lab Results - Last 24 Hours (Table) 03/25/22 03/26/22 03/26/22 Range/Units 10:54 00:05 06:12 Sodium 132 L (137-145) mmol/L Potassium 3.2 L (3.5-5.1) mmol/L BUN 7 L (9-20) mg/dL Creatinine 0.47 L (0.66-1.25) mg/dL Glucose 124 H (74-99) mg/dL POC Glucose (mg/dL) 135 H 119 H (70-110) mg/dL Calcium 7.9 L (8.4-10.2) mg/dL 03/26/22 Range/Units 08:46 Sodium (137-145) mmol/L Potassium (3.5-5.1) mmol/L BUN (9-20) mg/dL Creatinine 0.48 L (0.66-1.25) mg/dL Glucose (74-99) mg/dL POC Glucose (mg/dL) (70-110) mg/dL Calcium (8.4-10.2) mg/dL Microbiology - Last 24 Hours (Table) 03/22/22 12:22 Gram Stain - Final Sputum Sputum Culture - Final Staphylococcus aureus 03/24/22 09:03 Blood Culture - Preliminary Blood No Growth after 24 hours Assessment and Plan Assessment: Hemoptysis, likely secondary to bibasilar pneumonia. Sputum positive for oxacillin sensitive Staphylococcus aureus. S/P bronchoscopy, and BAL, right middle lobe (03/24), with sampling currently pending. History of oral cancer, status post surgery, chemoradiation, and tracheostomy. History of pulmonary nodules. Status post PEG tube placement. Chronic back pain. History of ongoing tobacco use. Plan: Plan dated 03/23/2022. The patient will undergo bronchoscopy and airway examination tomorrow. The pa sara is ready on good antibiotics in the form of vancomycin and Rocephin. He's getting tube feeds with Jevity, at 30 mL an hour. He is on a 35% trach collar. He is in no distress from the respiratory standpoint. Labs, x-rays, and medications are all reviewed. Prognosis is guarded. We will continue to follow and make recommendations along the way. Plan dated 03/24/2022. The patient appears to be doing reasonably well. He no longer was coughing up hemoptysis even before the bronchoscopy. On endobronchial evaluation, there was no active bleeding, endobronchial mass, tumor, or any other thing that would explain the bleeding. He did have a fair amount of purulent secretions. The bleeding may relate to his diagnosis of pneumonia. Clinically, the patient tolerated the procedure well. He was recovered and will go back to his room. He did do a BAL, the right middle lobe. We will await the results. The fluid was sent for cytology, microbiology, and cell count with differential. Plan dated 03/25/2022. See my note above. The patient's bronchoscopy reveals evidence of secretions, most of which were purulent, but no active bleeding. There is no dominant mass or tumor. We did a BAL of the right middle lobe. It was sent to laboratory for analysis. Clinically, the patient appears stable. He is getting his trach collar 40% and his tube feeds at goal. He is also getting saline at 70 mL an hour. The vancomycin was discontinued. Additional recommendations and suggesti ons are forthcoming. Prognosis is guarded. Plan dated 03/26/2022. The patient appears to be doing well. He remains on the trach collar at 40%. Clinically he looks well. He is still coughing up some sputum, tested with blood. Sputum is positive for oxacillin sensitive staph aureus. He is placed on Omnicef 300 mg twice a day. Vancomycin was discontinued yesterday. From our perspective, the patient could be considered for possible discharge. His vital signs are stable. Clinically, he looks to be doing reasonably well. Overall prognosis is guarded. We will continue to follow up should the patient not get discharged. Time with Patient: Less than 30
[2022-03-26 12:28] LABS: Glucose,Whole Blood 134 mg/dL (70-110)
--- NOTE | 2022-03-26 16:14 | P.PN ---
Subjective Progress Note Date: 03/26/22 61-year-old male with a history of oral cancer, status post tracheostomy, chemotherapy, and radiation therapy, who came into the emergency department complaining of nausea, vomiting, diarrhea, upset stomach, and also coughing up blood. I was consulted for the hemoptysis. The patient is still coughing up blood, admixed with some purulent looking sputum. The patient is currently resting comfortably in bed. He is getting saline at 75 mL an hour, and trach collar 35%. He is on vancomycin and Rocephin. Chest x-ray was negative. CAT scan was negative for PE, but did show some infiltrates in the lower lobes. The patient is receiving Jevity 1.5 and 30 mL an hour, with a goal of 60 mL an hour, via a PEG tube. Today we talked about doing a bronchoscopy on him. He is in agreement. The nurse was in the room, and her the conversation. White count 8.3, hemoglobin 12, hematocrit 36.6, and platelet count 69,000. Sodium 131, potassium 3.7, chlorides 97, CO2 29, BUN 9, and creatinine 0.47. N-terminal proBNP was 1390. Blood and sputum cultures thus far are negative. As mentioned, the chest x-ray is negative. The CTA was negative for a central pulmonary embolism, but did suggest some lower lobe inflammatory/infectious process. Objective - Vital Signs Vital signs: Vital Signs Temp 98.3 F 03/26/22 04:00 Pulse 70 03/26/22 04:00 Resp 20 03/26/22 04:00 BP 126/84 03/26/22 04:00 Pulse Ox 96 03/26/22 04:00 FiO2 35 03/26/22 08:54 Intake & Output 03/25/22 03/26/22 03/26/22 18:59 06:59 18:59 Intake Total 510 Output Total 680 Balance -680 510 Weight 68.039 kg Intake: Tube Feeding 510 Output: Urine 680 Other: Voiding Method Urinal Urinal Diaper Diaper Incontinent Incontinent - Exam -GENERAL: alert and oriented 3, on trach collar. HEENT: PEARRl. EOMI. No scleral icterus. No conjunctival pallor. Neck: supple, no JVD CARDIOVASCULAR: S1 and S2 present. No murmurs, rubs, or gallops. -PULMONARY: Scattered rhonchi, tracheostomy present. ABDOMEN: Soft, nontender, nondistended, normoactive bowel sounds. No palpable organomegaly. PEG tube present. EXTREMITIES: No cyanosis, clubbing, or pedal edema. NEUROLOGICAL: Gross neurological examination did not reveal any focal deficits. SKIN: No rashes. Warm and dry. - Labs CBC & Chem 7: 03/23/22 08:29 03/26/22 08:46 Labs: Abnormal Lab Results - Last 24 Hours (Table) 03/25/22 03/26/22 03/26/22 Range/Units 10:54 00:05 06:12 Sodium 132 L (137-145) mmol/L Potassium 3.2 L (3.5-5.1) mmol/L BUN 7 L (9-20) mg/dL Creatinine 0.47 L (0.66-1.25) mg/dL Glucose 124 H (74-99) mg/dL POC Glucose (mg/dL) 135 H 119 H (70-110) mg/dL Calcium 7.9 L (8.4-10.2) mg/dL 03/26/22 Range/Units 08:46 Sodium (137-145) mmol/L Potassium (3.5-5.1) mmol/L BUN (9-20) mg/dL Creatinine 0.48 L (0.66-1.25) mg/dL Glucose (74-99) mg/dL POC Glucose (mg/dL) (70-110) mg/dL Calcium (8.4-10.2) mg/dL Microbiology - Last 24 Hours (Table) 03/22/22 12:22 Gram Stain - Final Sputum Sputum Culture - Final Staphylococcus aureus 03/24/22 09:03 Blood Culture - Preliminary Blood No Growth after 24 hours Assessment and Plan Assessment: Hemoptysis, possiblly secondary to bilateral pneumonia, status post bronchoscopy, cytology pending. Dehydration NSVT Sinus tachycardia Hypokalemia Hyponatremia, hypovolemic History of carcinoma of the tongue, squamous cell carcinoma, status post surgical repair, chemo, radiation Mild to moderate protein calorie malnutrition Alcohol abuse, via PEG Ongoing nicotine dependence The patient appears to be doing well. He remains on the trach collar at 40%. Clinically he looks well. He is still coughing up some sputum, tested with blood. Sputum is positive for oxacillin sensitive staph aureus. He is placed on Omnicef 300 mg twice a day. Vancomycin was discontinued yesterday. From our perspective, the patient could be considered for possible discharge. His vital signs are stable. Clinically, he looks to be doing reasonably well. Overall prognosis is guarded.
[2022-03-26 18:09] LABS: Glucose,Whole Blood 121 mg/dL (70-110)
--- NOTE | 2022-03-26 18:26 | P.PN ---
Subjective Progress Note Date: 03/24/22 Principal diagnosis: Pneumonia and bacteremia Patient is a 61-year-old male with a past medical history significant for squamous cell carcinoma of the tongue this patient who is s/p tracheostomy and PEG tube placement and did have radiation chemotherapy patient also have ongoing alcohol and nicotine dependence patient presenting to the hospital with hemoptysis nausea in this patient symptom started the day before presentation to the hospital patient complaining of increasing cough with bloodstained sputum, diagnosed with pneumonia and did have a positive blood culture. On today's evaluation that is 03/24/2022, the patient denies having any fever or any chills, the patient is breathing comfortably still complaining of cough and hemoptysis, denies having any abdominal pain no vomiting or diarrhea Objective - Vital Signs Vital signs: Vital Signs Temp 97.2 F L 03/24/22 12:12 Pulse 89 03/24/22 12:30 Resp 16 03/24/22 14:19 BP 117/68 03/24/22 12:30 Pulse Ox 91 L 03/24/22 12:15 FiO2 35 03/24/22 12:30 Intake & Output 03/23/22 03/24/22 03/24/22 18:59 06:59 18:59 Intake Total 460 500 Output Total 700 850 300 Balance -240 -850 200 Intake: IV 250 Intake, IV Titration 250 250 Amount Vancomycin 1,250 mg In 250 250 Sodium Chloride 0.9% 250 ml @ 125 mls/hr IVPB Q8H [facility] Rx#:[id number] Oral 0 Tube Feeding 210 Output: Urine 700 850 300 Other: Voiding Method Incontinent Urinal Urinal Diaper Diaper Incontinent Incontinent - Exam GENERAL DESCRIPTION: Middle-aged male lying in bed in no distress RESPIRATORY SYSTEM: Unlabored breathing , coarse breath sounds at bases HEART: S1 S2 regular rate and rhythm , ABDOMEN: Soft , no tenderness EXTREMITIES: No edema feet - Labs CBC & Chem 7: 03/23/22 08:29 03/26/22 08:46 Labs: Abnormal Lab Results - Last 24 Hours (Table) 03/24/22 03/24/22 Range/Units 09:03 09:03 Creatinine 0.46 L (0.66-1.25) mg/dL C-Reactive Protein 8.1 H (<1.0) mg/dL Procalcitonin 0.10 H (0.02-0.09) ng/mL Microbiology - Last 24 Hours (Table) 03/22/22 12:44 Blood Culture Gram Stain - Preliminary Blood Blood Culture - Preliminary Coagulase Negative Staph 03/22/22 12:30 Blood Culture Gram Stain - Preliminary Blood Blood Culture - Preliminary Coagulase Negative Staph 03/22/22 12:22 Gram Stain - Preliminary Sputum Sputum Culture - Preliminary Assessment and Plan (1) Pneumonia Current Visit: Yes Status: Acute Code(s): J18.9 - PNEUMONIA, UNSPECIFIED ORGANISM SNOMED Code(s): 678278663 (2) Positive blood culture Current Visit: Yes Status: Acute Code(s): R78.81 - BACTEREMIA SNOMED Code(s): 685412798 Plan: 1patient with a positive blood culture with gram-positive cocci in this patient presented to the hospital predominantly with the respiratory symptoms with a CT angiogram showing some bilateral basilar pneumonia questionably pulmonary source however if finalized as staph epi will be disregarded as possible skin contaminant. 2blood cultures has been be repeated document clearance of bacteremia. 3patient to continue with vancomycin pharmacy to dose target trough of 15 while watching kidney function and vancomycin trough closely.
--- NOTE | 2022-03-26 18:28 | P.PN ---
Subjective Progress Note Date: 03/25/22 Principal diagnosis: Pneumonia and bacteremia Patient is a 61-year-old male with a past medical history significant for squamous cell carcinoma of the tongue this patient who is s/p tracheostomy and PEG tube placement and did have radiation chemotherapy patient also have ongoing alcohol and nicotine dependence patient presenting to the hospital with hemoptysis nausea in this patient symptom started the day before presentation to the hospital patient complaining of increasing cough with bloodstained sputum, diagnosed with pneumonia and did have a positive blood culture. On today's evaluation that is 03/25/2022, the patient remains to be afebrile, the patient is breathing comfortably on a trach collar, the patient continued [place] complaining of cough and hemoptysis however has decreased in intensity, denies having any abdominal pain no vomiting or diarrhea Objective - Vital Signs Vital signs: Vital Signs Temp 97.3 F L 03/25/22 12:25 Pulse 95 03/25/22 12:25 Resp 18 03/25/22 12:25 BP 123/84 03/25/22 12:25 Pulse Ox 95 03/25/22 12:25 FiO2 35 03/25/22 08:26 Intake & Output 03/24/22 03/25/22 03/25/22 18:59 06:59 18:59 Intake Total 1700 0 Output Total 750 575 680 Balance 950 575 -680 Weight 68.039 kg Intake: IV 250 Intake, IV Titration 1450 Amount Sodium Chloride 0.9% 1, 900 000 ml @ 75 mls/hr IV . [id number] [facility] Rx#:[id number] Vancomycin 1,250 mg In 500 Sodium Chloride 0.9% 250 ml @ 125 mls/hr IVPB Q8H [facility] Rx#:[id number] cefTRIAXone 2 gm In 50 Sodium Chloride 0.9% 50 ml @ 100 mls/hr IVPB Q24HR [facility] Rx#:[id number] Oral 0 0 Output: Urine 750 575 680 Other: Voiding Method Urinal Urinal Urinal Diaper Diaper Diaper Incontinent Incontinent Incontinent - Exam GENERAL DESCRIPTION: Middle-aged male lying in bed in no distress RESPIRATORY SYSTEM: Unlabored breathing , coarse breath sounds at bases HEART: S1 S2 regular rate and rhythm , ABDOMEN: Soft , no tenderness EXTREMITIES: No edema feet - Labs CBC & Chem 7: 03/23/22 08:29 03/26/22 08:46 Labs: Abnormal Lab Results - Last 24 Hours (Table) 03/24/22 03/25/22 Range/Units 09:03 10:54 Sodium 132 L (137-145) mmol/L Potassium 3.2 L (3.5-5.1) mmol/L BUN 7 L (9-20) mg/dL Creatinine 0.47 L (0.66-1.25) mg/dL Glucose 124 H (74-99) mg/dL Calcium 7.9 L (8.4-10.2) mg/dL Procalcitonin 0.10 H (0.02-0.09) ng/mL Microbiology - Last 24 Hours (Table) 03/24/22 09:03 Blood Culture - Preliminary Blood No Growth after 24 hours 03/22/22 12:44 Blood Culture Gram Stain - Preliminary Blood Blood Culture - Preliminary Coagulase Negative Staph 03/22/22 12:30 Blood Culture Gram Stain - Preliminary Blood Blood Culture - Preliminary Coagulase Negative Staph 03/22/22 12:22 Gram Stain - Preliminary Sputum Sputum Culture - Preliminary Assessment and Plan (1) Pneumonia Current Visit: Yes Status: Acute Code(s): J18.9 - PNEUMONIA, UNSPECIFIED ORGANISM SNOMED Code(s): 122028413 (2) Positive blood culture Current Visit: Yes Status: Acute Code(s): R78.81 - BACTEREMIA SNOMED Code(s): 527958502 Plan: 1patient with a positive blood culture with gram-positive cocci in this patient presented to the hospital predominantly with the respiratory symptoms with a CT angiogram showing some bilateral basilar pneumonia questionably pulmonary source however blood cultures have been finalized as staphylococcus hominis more likely skin contaminant 2blood cultures has been be repeated document clearance of bacteremia. 3patient to continue with vancomycin pharmacy to dose target trough of 15 while waiting for the sputum culture to be finalize
--- NOTE | 2022-03-26 18:31 | P.PN ---
Subjective Progress Note Date: 03/26/22 Principal diagnosis: Pneumonia and bacteremia Patient is a 61-year-old male with a past medical history significant for squamous cell carcinoma of the tongue this patient who is s/p tracheostomy and PEG tube placement and did have radiation chemotherapy patient also have ongoing alcohol and nicotine dependence patient presenting to the hospital with hemoptysis nausea in this patient symptom started the day before presentation to the hospital patient complaining of increasing cough with bloodstained sputum, diagnosed with pneumonia and did have a positive blood culture. On today's evaluation that is 03/26/2022, the patient continues to be afebrile, the patient is breathing comfortably on a trach collar, the patient has decreased in intensity and less productive, denies any abdominal pain and vomiting or diarrhea Objective - Vital Signs Vital signs: Vital Signs Temp 97.6 F 03/26/22 09:20 Pulse 97 03/26/22 09:20 Resp 16 03/26/22 09:20 BP 126/84 03/26/22 09:20 Pulse Ox 97 03/26/22 09:20 FiO2 35 03/26/22 08:54 Intake & Output 03/25/22 03/26/22 03/26/22 18:59 06:59 18:59 Intake Total 510 150 Output Total 680 Balance -680 510 150 Weight 68.039 kg Intake: Tube Feeding 510 150 Output: Urine 680 Other: Voiding Method Urinal Urinal Urinal Diaper Diaper Diaper Incontinent Incontinent Incontinent - Exam GENERAL DESCRIPTION: Middle-aged male lying in bed in no distress RESPIRATORY SYSTEM: Unlabored breathing , coarse breath sounds at bases HEART: S1 S2 regular rate and rhythm , ABDOMEN: Soft , no tenderness EXTREMITIES: No edema feet - Labs CBC & Chem 7: 03/23/22 08:29 03/26/22 08:46 Labs: Abnormal Lab Results - Last 24 Hours (Table) 03/26/22 03/26/22 03/26/22 Range/Units 00:05 06:12 08:46 Creatinine 0.48 L (0.66-1.25) mg/dL POC Glucose (mg/dL) 135 H 119 H (70-110) mg/dL 03/26/22 Range/Units 12:27 Creatinine (0.66-1.25) mg/dL POC Glucose (mg/dL) 134 H (70-110) mg/dL Microbiology - Last 24 Hours (Table) 03/24/22 09:03 Blood Culture - Preliminary Blood No Growth after 48 hours 03/22/22 12:22 Gram Stain - Final Sputum Sputum Culture - Final Staphylococcus aureus Assessment and Plan (1) Pneumonia Current Visit: Yes Status: Acute Code(s): J18.9 - PNEUMONIA, UNSPECIFIED ORGANISM SNOMED Code(s): 543839099 (2) Positive blood culture Current Visit: Yes Status: Acute Code(s): R78.81 - BACTEREMIA SNOMED Code(s): 829252103 Plan: 1patient with a positive blood culture with gram-positive cocci in this patient presented to the hospital predominantly with the respiratory symptoms with a CT angiogram showing some bilateral basilar pneumonia questionably pulmonary source however blood cultures have been finalized as staphylococcus hominis more likely skin contaminant, repeat blood cultures have been negative we'll discontinue vancomycin 2sputum has been finalized with MSSA antibiotics will be switched over to cefazolin 2 g every 8 hours
[2022-03-26] MEDS: AMITRIPTYLINE HCL 25 MG TAB PEG/G-TUBE SCH (20:28)
[2022-03-27 00:59] LABS: Glucose,Whole Blood 133 mg/dL (70-110)
[2022-03-27 06:14] LABS: Glucose,Whole Blood 109 mg/dL (70-110)
[2022-03-27] MEDS: LEVOTHYROXINE 25 MCG TAB PEG/G-TUBE SCH (06:39)
[2022-03-27] MEDS: busPIRone HCl 5 MG TAB PEG/G-TUBE SCH ×2 (09:45→20:43)
[2022-03-27] MEDS: CYANOCOBALAMIN 500 MCG TAB PEG/G-TUBE SCH (09:45)
[2022-03-27] MEDS: lamoTRIgine 25 MG TAB PEG/G-TUBE SCH ×2 (09:45→20:42)
[2022-03-27] MEDS: BACLOFEN 10 MG TAB PEG/G-TUBE SCH ×3 (09:46→20:43)
[2022-03-27] MEDS: SODIUM CHLORIDE TAB 1 GM TAB PEG/G-TUBE SCH (09:46)
[2022-03-27] MEDS: SERTRALINE 25 MG TAB PEG/G-TUBE SCH (09:46)
[2022-03-27] MEDS: METOPROLOL SUCCINATE (ER) 50 MG TAB.ER.24H PO SCH (09:46)
[2022-03-27] MEDS: SPIRONOLACTONE 25 MG TAB PO SCH (09:46)
[2022-03-27 09:48] LABS: Basophils # (A) 0.1 k/uL (0-0.2); Basophils % (A) 2 %; Eosinophils # (A) 0.2 k/uL (0-0.7); Eosinophils % (A) 4 %; HCT 37.1 % (39.0-53.0); HGB 11.9 gm/dL (13.0-17.5); Lymphocytes # (A) 0.8 k/uL (1.0-4.8); Lymphocytes % (A) 14 %; MCH 32.8 pg (25.0-35.0); MCHC 32.1 g/dL (31.0-37.0); MCV 102.2 fL (80.0-100.0); Macrocytosis Slight; Mean Platelet Volume 10.3; Monocytes # (A) 1.2 k/uL (0-1.0); Monocytes % (A) 21 %; Neutrophils # (A) 3.2 k/uL (1.3-7.7); Neutrophils % (A) 55 %; RBC 3.63 m/uL (4.30-5.90); RDW 12.7 % (11.5-15.5); WBC 5.8 k/uL (3.8-10.6)
[2022-03-27 09:53] LABS: African American GFR (CKD) >90 (>60 ml/min/1.73 sqM); Anion Gap 5 mmol/L; Blood Urea Nitrogen 11 mg/dL (9-20); Calcium 8.5 mg/dL (8.4-10.2); Carbon Dioxide 32 mmol/L (22-30); Chloride 100 mmol/L (98-107); Glucose 102 mg/dL (74-99); Non-African American GFR(CKD) >90 (>60 ml/min/1.73 sqM); Platelet Count 60 k/uL (150-450); Potassium 4.3 mmol/L (3.5-5.1); Sodium 137 mmol/L (137-145)
--- NOTE | 2022-03-27 10:04 | P.PN ---
Subjective Progress Note Date: 03/27/22 Principal diagnosis: Hemoptysis. Pulmonary consult dated 03/23/2022. 61-year-old male with a history of oral cancer, status post tracheostomy, chemotherapy, and radiation therapy, who came into the emergency department complaining of nausea, vomiting, diarrhea, upset stomach, and also coughing up blood. I was consulted for the hemoptysis. The patient is still coughing up bl ood, admixed with some purulent looking sputum. The patient is currently resting comfortably in bed. He is getting saline at 75 mL an hour, and trach collar 35%. He is on vancomycin and Rocephin. Chest x-ray was negative. CAT scan was negative for PE, but did show some infiltrates in the lower lobes. The patient is receiving Jevity 1.5 and 30 mL an hour, with a goal of 60 mL an hour, via a PEG tube. Today we talked about doing a bronchoscopy on him. He is in agreement. The nurse was in the room, and her the conversation. White count 8.3, hemoglobin 12, hematocrit 36.6, and platelet count 69,000. Sodium 131, potassium 3.7, chlorides 97, CO2 29, BUN 9, and creatinine 0.47. N-terminal proBNP was 1390. Blood and sputum cultures thus far are negative. As mentioned, the chest x-ray is negative. The CTA was negative for a central pulmonary embolism, but did suggest some lower lobe inflammatory/infectious process. Progress note dated 03/24/2022. This is a 61-year-old male was seen in room 360. The patient has a history of previous oral cancer, with previous chemotherapy, radiation, and tracheotomy. The patient came in with complaints of coughing up blood, among other things. The patient underwent bronchoscopy today. There is no active bleeding. There is no mass or tumor. There were some secretions. They're pretty fed and scant. Some of the secretions were thick and purulent. We did a formal BAL. The patient was seen earlier, and was found be on 40% trach collar. Tube feedings via a PEG tube were on hold. The only labs today included a creatinine of 0.46 and a C-reactive protein of 8.1. Blood cultures were positive for coag-negative staph, possibly a contaminant. The patient is on ceftriaxone, and vancomycin. Progress note dated 03/25/2022. 61-year-old male who was seen again today in room 360. The patient underwent bronchoscopy yesterday. The patient did have secretions in his lower respiratory tract, but there was no bleeding. There is no mass or tumor. We did do a BAL of the right middle lobe, and no samples were sent for evaluation. Currently, the patient is on Jevity 60 mL an hour, he is receiving saline at 70 mL an hour, and his trach collar set of 40%. We are going to DC his vancomycin. No new labs today. Blood cultures are showing evidence of coag-negative staph. Progress note dated 03/26/2022. 61-year-old male seen again in room 360. The patient underwent bronchoscopy on March 24. He did have significant secretions in her lower respiratory tract, but no active bleeding. There is no mass or tumor. We did do a BAL of the right middle lobe. Samples are currently pending. He is receiving saline at 70 mL an hour, and Jevity at 80 mL an hour. His trach collar is set at 40%. Clinically he looks well. Creatinine today is 0.48. Glucose 119. Microbiologic studies show coag-negative staph in the blood, and oxacillin sensitive staph aureus in the sputum. Progress note dated 03/27/2022. 61-year-old male again seen in room 360. He is currently on 40% trach collar, saline at 25 mL an hour, and Jevity tube feedings, at 80 mL an hour. He's not coughing up near as much phlegm as he was, and there is no blood. He feels like he is doing much better. White count 5.8, hemoglobin 11.9, hematocrit 37.1, and platelet count 60,000. Sodium 137, potassium 4.3, chlorides 100, CO2 32, BUN 11, creatinine 0.53. Blood cultures have been positive for staph aureus, staph epidermidis, and staph hominis. Objective - Vital Signs Vital signs: Vital Signs Temp 97.4 F L 03/27/22 08:00 Pulse 91 03/27/22 08:00 Resp 21 03/27/22 08:00 BP 127/72 03/27/22 08:00 Pulse Ox 94 L 03/27/22 08:00 FiO2 35 03/27/22 09:13 Intake & Output 03/26/22 03/27/22 03/27/22 18:59 06:59 18:59 Intake Total 300 870 Output Total 600 Balance 300 270 Intake: Tube Feeding 300 870 Output: Urine 600 Other: Voiding Method Urinal Urinal Diaper Diaper Incontinent Incontinent - Exam No acute distress, oriented 3. Trach collar in place at 40 %. HEENT examination is grossly unremarkable. Neck supple. Full range of motion. No adenopathy thyromegaly or neck vein distention. Midline tracheostomy tube noted. Cardiovascular examination reveals regular rhythm rate. S1-S2 normal. No S3 or S4. No discernible murmur noted. Heart rate 91 bpm. Lungs reveal coarse bilateral rhonchi. Breath sounds equal bilaterally. No wheezes. No crackles.Saturations 95 %. Abdomen soft, PEG tube noted. Extremities are intact. No cyanosis clubbing or edema. Skin is without rash or lesion. Neurologic examination is brief but nonfocal. - Labs CBC & Chem 7: 03/27/22 08:33 03/27/22 08:33 Labs: Abnormal Lab Results - Last 24 Hours (Table) 03/26/22 03/26/22 03/27/22 Range/Units 12:27 18:08 00:57 RBC (4.30-5.90) m/uL Hgb (13.0-17.5) gm/dL Hct (39.0-53.0) % MCV (80.0-100.0) fL Plt Count (150-450) k/uL Lymphocytes # (1.0-4.8) k/uL Monocytes # (0-1.0) k/uL Carbon Dioxide (22-30) mmol/L Creatinine (0.66-1.25) mg/dL Glucose (74-99) mg/dL POC Glucose (mg/dL) 134 H 121 H 133 H (70-110) mg/dL 03/27/22 03/27/22 Range/Units 08:33 08:33 RBC 3.63 L (4.30-5.90) m/uL Hgb 11.9 L (13.0-17.5) gm/dL Hct 37.1 L (39.0-53.0) % MCV 102.2 H (80.0-100.0) fL Plt Count 60 L (150-450) k/uL Lymphocytes # 0.8 L (1.0-4.8) k/uL Monocytes # 1.2 H (0-1.0) k/uL Carbon Dioxide 32 H (22-30) mmol/L Creatinine 0.53 L (0.66-1.25) mg/dL Glucose 102 H (74-99) mg/dL POC Glucose (mg/dL) (70-110) mg/dL Microbiology - Last 24 Hours (Table) 03/22/22 12:30 Blood Culture Gram Stain - Final Blood Blood Culture - Final Staphylococcus epidermidis 03/22/22 12:44 Blood Culture Gram Stain - Final Blood Blood Culture - Final Staph hominis sub sp. hominis 03/24/22 09:03 Blood Culture - Preliminary Blood No Growth after 48 hours 03/22/22 12:22 Gram Stain - Final Sputum Sputum Culture - Final Staphylococcus aureus Assessment and Plan Assessment: Hemoptysis, likely secondary to bibasilar pneumonia. Sputum positive for oxacillin sensitive Staphylococcus aureus. S/P bronchoscopy, and BAL, right middle lobe (03/24), with sampling currently pending. History of oral cancer, status post surgery, chemoradiation, and tracheostomy. History of pulmonary nodules. Status post PEG tube placement. Chronic back pain. History of ongoing tobacco use. Plan: Plan dated 03/23/2022. The patient will undergo bronchoscopy and airway examination tomorrow. The patient is ready on good antibiotics in the form of vancomycin and Rocephin. He's getting tube feeds with Jevity, at 30 mL an hour. He is on a 35% trach collar. He is in no distress from the respiratory standpoint. Labs, x-rays, and medications are all reviewed. Prognosis is guarded. We will continue to follow and make recommendations along the way. Plan dated 03/24/2022. The patient appears to be doing reasonably well. He no longer was coughing up hemoptysis even before the bronchoscopy. On endobronchial evaluation, there was no active bleeding, endobronchial mass, tumor, or any other thing that would explain the bleeding. He did have a fair amount of purulent secretions. The bleeding may relate to his diagnosis of pneumonia. Clinically, the patient tolerated the procedure well. He was recovered and will go back to his room. He did do a BAL, the right middle lobe. We will await the results. The fluid was sent for cytology, microbiology, and cell count with differential. Plan dated 03/25/2022. See my note above. The patient's bronchoscopy reveals evidence of secretions, most of which were purulent, but no active bleeding. There is no dominant mass or tumor. We did a BAL of the right middle lobe. It was sent to laboratory for analysis. Clinically, the patient appears stable. He is getting his trach col lar 40% and his tube feeds at goal. He is also getting saline at 70 mL an hour. The vancomycin was discontinued. Additional recommendations and suggestions are forthcoming. Prognosis is guarded. Plan dated 03/26/2022. The patient appears to be doing well. He remains on the trach collar at 40%. Clinically he looks well. He is still coughing up some sputum, tested with blood. Sputum is positive for oxacillin sensitive staph aureus. He is placed on Omnicef 300 mg twice a day. Vancomycin was discontinued yesterday. From our perspective, the patient could be considered for possible discharge. His vital signs are stable. Clinically, he looks to be doing reasonably well. Overall prognosis is guarded. We will continue to follow up should the patient not get discharged. Plan dated 03/27/2022. The patient seems to be doing much better. Coughing up less phlegm. No blood. Cultures are reviewed. He remains on 40% trach collar. He is getting Jevity at 80 mL an hour. Clinically he looks very stable and could be considered for possible discharge. He is currently on Ancef as per infectious diseases. No additional recommendations are made. Prognosis is guarded. We will continue to follow and make recommendations along the way. Labs, x-rays, and medications are all reviewed. Time with Patient: Less than 30
[2022-03-27 12:06] LABS: Glucose,Whole Blood 130 mg/dL (70-110)
[2022-03-27] MEDS: SODIUM CHLORIDE 0.9% 1,000 ML IV SCH (12:51)
[2022-03-27] MEDS: AMITRIPTYLINE HCL 25 MG TAB PEG/G-TUBE SCH (20:43)
[2022-03-28 00:19] LABS: Glucose,Whole Blood 120 mg/dL (70-110)
[2022-03-28] MEDS: SODIUM CHLORIDE 0.9% 1,000 ML IV SCH (02:47)
[2022-03-28 05:48] VITALS: RESP 20
[2022-03-28 06:09] LABS: Glucose,Whole Blood 112 mg/dL (70-110)
[2022-03-28] MEDS: LEVOTHYROXINE 25 MCG TAB PEG/G-TUBE SCH (06:38)
--- NOTE | 2022-03-28 07:36 | P.PN ---
Subjective Progress Note Date: 03/27/22 Principal diagnosis: Pneumonia and bacteremia Patient is a 61-year-old male with a past medical history significant for squamous cell carcinoma of the tongue this patient who is s/p tracheostomy and PEG tube placement and did have radiation chemotherapy patient also have ongoing alcohol and nicotine dependence patient presenting to the hospital with hemoptysis nausea in this patient symptom started the day before presentation to the hospital patient complaining of increasing cough with bloodstained sputum, diagnosed with pneumonia and did have a positive blood culture. On today's evaluation that is 03/27/2022, the patient remains to be afebrile, the patient is breathing comfortably on a trach collar, the patient cough has decreased in intensity and less productive, the patient denies any abdominal pain and vomiting or diarrhea Objective - Vital Signs Vital signs: Vital Signs Temp 98.4 F 03/27/22 16:00 Pulse 101 H 03/27/22 16:00 Resp 17 03/27/22 16:00 BP 142/84 03/27/22 16:00 Pulse Ox 95 03/27/22 16:17 FiO2 35 03/27/22 16:17 Intake & Output 03/27/22 03/27/22 03/28/22 06:59 18:59 06:59 Intake Total 870 2400 Output Total 600 600 Balance 270 1800 Intake: Intake, IV Titration 800 Amount Sodium Chloride 0.9% 1, 750 000 ml @ 75 mls/hr IV . [id number] [facility] Rx#:[id number] ceFAZolin 2 gm In Sodium 50 Chloride 0.9% 50 ml @ 100 mls/hr IVPB Q8HR [facility] Rx# :[id number] Tube Feeding 870 1600 Output: Urine 600 600 Other: Voiding Method Urinal Urinal Diaper Diaper Incontinent Incontinent - Exam GENERAL DESCRIPTION: Middle-aged male lying in bed in no distress RESPIRATORY SYSTEM: Unlabored breathing , coarse breath sounds at bases HEART: S1 S2 regular rate and rhythm , ABDOMEN: Soft , no tenderness EXTREMITIES: No edema feet - Labs CBC & Chem 7: 03/27/22 08:33 03/27/22 08:33 Labs: Abnormal Lab Results - Last 24 Hours (Table) 03/27/22 03/27/22 03/27/22 Range/Units 00:57 08:33 08:33 RBC 3.63 L (4.30-5.90) m/uL Hgb 11.9 L (13.0-17.5) gm/dL Hct 37.1 L (39.0-53.0) % MCV 102.2 H (80.0-100.0) fL Plt Count 60 L (150-450) k/uL Lymphocytes # 0.8 L (1.0-4.8) k/uL Monocytes # 1.2 H (0-1.0) k/uL Carbon Dioxide 32 H (22-30) mmol/L Creatinine 0.53 L (0.66-1.25) mg/dL Glucose 102 H (74-99) mg/dL POC Glucose (mg/dL) 133 H (70-110) mg/dL 03/27/22 Range/Units 12:01 RBC (4.30-5.90) m/uL Hgb (13.0-17.5) gm/dL Hct (39.0-53.0) % MCV (80.0-100.0) fL Plt Count (150-450) k/uL Lymphocytes # (1.0-4.8) k/uL Monocytes # (0-1.0) k/uL Carbon Dioxide (22-30) mmol/L Creatinine (0.66-1.25) mg/dL Glucose (74-99) mg/dL POC Glucose (mg/dL) 130 H (70-110) mg/dL Microbiology - Last 24 Hours (Table) 03/24/22 09:03 Blood Culture - Preliminary Blood No Growth after 72 hours Assessment and Plan (1) Pneumonia Current Visit: Yes Status: Acute Code(s): J18.9 - PNEUMONIA, UNSPECIFIED ORGANISM SNOMED Code(s): 193075908 (2) Positive blood culture Current Visit: Yes Status: Acute Code(s): R78.81 - BACTEREMIA SNOMED Code(s): 517191421 Plan: 1patient with a positive blood culture with gram-positive cocci in this patient presented to the hospital predominantly with the respiratory symptoms with a CT angiogram showing some bilateral basilar pneumonia questionably pulmonary source however blood cultures have been finalized as staphylococcus hominis more likely skin contaminant, repeat blood cultures have been negative no need for vancomycin 2the patient sputum is growing MSSA, patient is currently being treated with cefazolin 2 g every 8 hours with a plan to finish therapy with oral Keflex Time with Patient: Less than 30
[2022-03-28 07:46] LABS: African American GFR (CKD) >90 (>60 ml/min/1.73 sqM); Non-African American GFR(CKD) >90 (>60 ml/min/1.73 sqM)
--- NOTE | 2022-03-28 09:13 | P.PN ---
Subjective Progress Note Date: 03/27/22 Principal diagnosis: Hemoptysis, possiblly secondary to bilateral pneumonia, status post bronchoscopy /sinus tachycardia Hypokalemia/hyponatremia/hypovolemia/dehydration 61-year-old male with a history of oral cancer, status post tracheostomy, chemot herapy, and radiation therapy, who came into the emergency department complaining of nausea, vomiting, diarrhea, upset stomach, and also coughing up blood. I was consulted for the hemoptysis. The patient is still coughing up blood, admixed with some purulent looking sputum. The patient is currently resting comfortably in bed. He is getting saline at 75 mL an hour, and trach collar 35%. He is on vancomycin and Rocephin. Chest x-ray was negative. CAT scan was negative for PE, but did show some infiltrates in the lower lobes. The patient is receiving Jevity 1.5 and 30 mL an hour, with a goal of 60 mL an hour, via a PEG tube. Today we talked about doing a bronchoscopy on him. He is in a greement. The nurse was in the room, and her the conversation. White count 8.3, hemoglobin 12, hematocrit 36.6, and platelet count 69,000. Sodium 131, potassium 3.7, chlorides 97, CO2 29, BUN 9, and creatinine 0.47. N-terminal proBNP was 1390. Blood and sputum cultures thus far are negative. As mentioned, the chest x-ray is negative. The CTA was negative for a central pulmonary embolism, but did suggest some lower lobe inflammatory/infectious process. 03/27/2022 Patient is seen and evaluated in room at bedside; denies any specific complaints; remains on 40% trach collar with O2 saturation above 92% Lab review shows White count 5.8, hemoglobin 11.9, hematocrit 37.1, and platelet count 60,000. Sodium 137, potassium 4.3, chlorides 100, CO2 32, BUN 11, creatinine 0.53. Blood cultures positive for staph aureus, staph epidermidis, and staph hominis. CT angiogram showing some bilateral basilar pneumonia questionably pulmonary source however blood cultures have been finalized as staphylococcus hominis more likely skin contaminant, repeat blood cultures have been negative no need for vancomycin 2the patient sputum is growing MSSA, patient is currently being treated with cefazolin 2 g every 8 hours with a plan to finish therapy with oral Keflex Objective - Vital Signs Vital signs: Vital Signs Temp 97.4 F L 03/27/22 08:00 Pulse 91 03/27/22 08:00 Resp 21 03/27/22 08:00 BP 127/72 03/27/22 08:00 Pulse Ox 94 L 03/27/22 08:00 FiO2 35 03/27/22 09:13 Intake & Output 03/26/22 03/27/22 03/27/22 18:59 06:59 18:59 Intake Total 300 870 Output Total 600 Balance 300 270 Intake: Tube Feeding 300 870 Output: Urine 600 Other: Voiding Method Urinal Urinal Diaper Diaper Incontinent Incontinent - Exam -GENERAL: alert and oriented 3, on trach collar. HEENT: PEARRl. EOMI. No scleral icterus. No conjunctival pallor. Neck: supple, no JVD CARDIOVASCULAR: S1 and S2 present. No murmurs, rubs, or gallops. -PULMONARY: Scattered rhonchi, tracheostomy present. ABDOMEN: Soft, nontender, nondistended, normoactive bowel sounds. No palpable organomegaly. PEG tube present. EXTREMITIES: No cyanosis, clubbing, or pedal edema. NEUROLOGICAL: Gross neurological examination did not reveal any focal deficits. SKIN: No rashes. Warm and dry. - Labs CBC & Chem 7: 03/27/22 08:33 03/28/22 07:02 Labs: Abnormal Lab Results - Last 24 Hours (Table) 03/26/22 03/26/22 03/27/22 Range/Units 12:27 18:08 00:57 RBC (4.30-5.90) m/uL Hgb (13.0-17.5) gm/dL Hct (39.0-53.0) % MCV (80.0-100.0) fL Plt Count (150-450) k/uL Lymphocytes # (1.0-4.8) k/uL Monocytes # (0-1.0) k/uL Carbon Dioxide (22-30) mmol/L Creatinine (0.66-1.25) mg/dL Glucose (74-99) mg/dL POC Glucose (mg/dL) 134 H 121 H 133 H (70-110) mg/dL 03/27/22 03/27/22 Range/Units 08:33 08:33 RBC 3.63 L (4.30-5.90) m/uL Hgb 11.9 L (13.0-17.5) gm/dL Hct 37.1 L (39.0-53.0) % MCV 102.2 H (80.0-100.0) fL Plt Count 60 L (150-450) k/uL Lymphocytes # 0.8 L (1.0-4.8) k/uL Monocytes # 1.2 H (0-1.0) k/uL Carbon Dioxide 32 H (22-30) mmol/L Creatinine 0.53 L (0.66-1.25) mg/dL Glucose 102 H (74-99) mg/dL POC Glucose (mg/dL) (70-110) mg/dL Microbiology - Last 24 Hours (Table) 03/22/22 12:30 Blood Culture Gram Stain - Final Blood Blood Culture - Final Staphylococcus epidermidis 03/22/22 12:44 Blood Culture Gram Stain - Final Blood Blood Culture - Final Staph hominis sub sp. hominis 03/24/22 09:03 Blood Culture - Preliminary Blood No Growth after 48 hours 03/22/22 12:22 Gram Stain - Final Sputum Sputum Culture - Final Staphylococcus aureus Assessment and Plan Assessment: Hemoptysis, possiblly secondary to bilateral pneumonia, status post bronchoscopy, cytology pending. Dehydration NSVT Sinus tachycardia Hypokalemia Hyponatremia, hypovolemic History of carcinoma of the tongue, squamous cell carcinoma, status post surgical repair, chemo, radiation Mild to moderate protein calorie malnutrition Alcohol abuse, via PEG Ongoing nicotine dependence The patient appears to be doing well. He remains on the trach collar at 40%. Clinically he looks well. He is still coughing up some sputum, tested with blood. Sputum is positive for oxacillin sensitive staph aureus. He is placed on Omnicef 300 mg twice a day. Vancomycin was discontinued yesterday. From our perspective, the patient could be considered for possible discharge. His vital signs are stable. Clinically, he looks to be doing reasonably well. Overall prognosis is guarded.
[2022-03-28] MEDS: METOPROLOL SUCCINATE (ER) 50 MG TAB.ER.24H PO SCH (10:59)
[2022-03-28] MEDS: SERTRALINE 25 MG TAB PEG/G-TUBE SCH (10:59)
[2022-03-28] MEDS: SPIRONOLACTONE 25 MG TAB PO SCH (10:59)
[2022-03-28] MEDS: busPIRone HCl 5 MG TAB PEG/G-TUBE SCH (10:59)
[2022-03-28] MEDS: lamoTRIgine 25 MG TAB PEG/G-TUBE SCH (11:00)
[2022-03-28] MEDS: CYANOCOBALAMIN 500 MCG TAB PEG/G-TUBE SCH (11:00)
[2022-03-28] MEDS: SODIUM CHLORIDE TAB 1 GM TAB PEG/G-TUBE SCH (11:00)
[2022-03-28] MEDS: BACLOFEN 10 MG TAB PEG/G-TUBE SCH (11:00)
[2022-03-28 12:03] LABS: Glucose,Whole Blood 118 mg/dL (70-110)
[2022-03-28 12:28] VITALS: BP 109/67; PULSE 52; TEMP 98
--- NOTE | 2022-03-28 14:08 | P.PN ---
Subjective Progress Note Date: 03/28/22 61-year-old male with a history of oral cancer, status post tracheostomy, chemotherapy, and radiation therapy, who came into the emergency department complaining of nausea, vomiting, diarrhea, upset stomach, and also coughing up blood. I was consulted for the hemoptysis. The patient is still coughing up blood, admixed with some purulent looking sputum. The patient is currently resting comfortably in bed. He is getting saline at 75 mL an hour, and trach collar 35%. He is on vancomycin and Rocephin. Chest x-ray was negative. CAT scan was negative for PE, but did show some infiltrates in the lower lobes. The patient is receiving Jevity 1.5 and 30 mL an hour, with a goal of 60 mL an hour, via a PEG tube. Today we talked about doing a bronchoscopy on him. He is in agreement. The nurse was in the room, and her the conversation. White count 8.3, hemoglobin 12, hematocrit 36.6, and platelet count 69,000. Sodium 131, potassium 3.7, chlorides 97, CO2 29, BUN 9, and creatinine 0.47. N-terminal proBNP was 1390. Blood and sputum cultures thus far are negative. As mentioned, the chest x-ray is negative. The CTA was negative for a central pulmonary embolism, but did suggest some lower lobe inflammatory/infectious process. Progress note dated 03/24/2022. This is a 61-year-old male was seen in room 360. The patient has a history of previous oral cancer, with previous chemotherapy, radiation, and tracheotomy. The patient came in with complaints of coughing up blood, among other things. The patient underwent bronchoscopy today. There is no active bleeding. There is no mass or tumor. There were some secretions. They're pretty fed and scant. Some of the secretions were thick and purulent. We did a formal BAL. The patient was seen earlier, and was found be on 40% trach collar. Tube feedings via a PEG tube were on hold. The only labs today included a creatinine of 0.46 and a C-reactive protein of 8.1. Blood cultures were positive for coag-negative staph, possibly a contaminant. The patient is on ceftriaxone, and vancomycin. Progress note dated 03/25/2022. 61-year-old male who was seen again today in room 360. The patient underwent bronchoscopy yesterday. The patient did have secretions in his lower respiratory tract, but there was no bleeding. There is no mass or tumor. We did do a BAL of the right middle lobe, and no samples were sent for evaluation. Currently, the patient is on Jevity 60 mL an hour, he is receiving saline at 70 mL an hour, and his trach collar set of 40%. We are going to DC his vancomycin. No new labs today. Blood cultures are showing evidence of coag-negative staph. Progress note dated 03/26/2022. 61-year-old male seen again in room 360. The patient underwent bronchoscopy on March 24. He did have significant secretions in her lower respiratory tract, but no active bleeding. There is no mass or tumor. We did do a BAL of the right middle lobe. Samples are currently pending. He is receiving saline at 70 mL an hour, and Jevity at 80 mL an hour. His trach collar is set at 40%. Clinically he looks well. Creatinine today is 0.48. Glucose 119. Microbiologic studies show coag-negative staph in the blood, and oxacillin sensitive staph aureus in the sputum. Progress note dated 03/27/2022. 61-year-old male again seen in room 360. He is currently on 40% trach collar, saline at 25 mL an hour, and Jevity tube feedings, at 80 mL an hour. He's not coughing up near as much phlegm as he was, and there is no blood. He feels like he is doing much better. White count 5.8, hemoglobin 11.9, hematocrit 37.1, and platelet count 60,000. Sodium 137, potassium 4.3, chlorides 100, CO2 32, BUN 11, creatinine 0.53. Blood cultures have been positive for staph aureus, staph epidermidis, and staph hominis. On 03/28/2020, the patient is doing well. No specific complaints. No major respiratory distress. He is able to cough or dizziness. Secretions. No significant hemoptysis has been noted. The patient remains on a 40% trach collar. He is also able to suction himself adequately. Breathing is nonlabore d. A consent, the patient continues to receive enteral feeding for nutritional support and the patient is currently on Jevity at the rate of 80 mL an hour. Is having regular bowel movements. No nausea. No vomiting. No emesis. The patient remains on IV cefazolin 2 g every 8 hours. Rest of the medications are all unchanged. No altered mentation. No chest pain. No nausea or vomiting. No GI upset. No cough or sputum production. Noted the patient's blood culture was positive for staph hominis and his sputum culture was positive for MSSA. Objective - Vital Signs Vital signs: Vital Signs Temp 97.6 F 03/28/22 04:30 Pulse 100 03/28/22 04:30 Resp 20 03/28/22 04:30 BP 132/87 03/28/22 04:30 Pulse Ox 95 03/28/22 04:30 FiO2 35 03/28/22 03:44 Intake & Output 03/27/22 03/28/22 03/28/22 18:59 06:59 18:59 Intake Total 2400 960 Output Total 600 1350 820 Balance 1800 -390 -820 Intake: Intake, IV Titration 800 Amount Sodium Chloride 0.9% 1, 750 000 ml @ 75 mls/hr IV . [id number] [facility] Rx#:[id number] ceFAZolin 2 gm In Sodium 50 Chloride 0.9% 50 ml @ 100 mls/hr IVPB Q8HR [facility] Rx# :[id number] Tube Feeding 1600 960 Output: Urine 600 1350 820 Other: Voiding Method Urinal Urinal Diaper Diaper Incontinent Incontinent - Exam General Impression: Alert and oriented x3, not in acute distress, cachexic, and the patient has an extensive surgical scar over his face with possibly a muscle flap. HEENT: Normocephalic atraumatic, extra-ocular movements intact, pupils equal and reactive to light bilaterally, mucous membranes moist, tracheostomy in place and this is a Shiley tracheostomy tube. Cardiovascular: Cardiac exam revealed the PMI to be normally situated and sized. The rhythm was regular and no extrasystoles were noted during several minutes of auscultation. The first and second heart sounds were normal and physiologic splitting of the second heart sound was noted. There were no murmurs, rubs, clicks, or gallops. Chest: Able to complete full sentences, no retractions, no tachypnea Abdomen: abdomen soft, non-tender, non-distended, no organomegaly, PEG tube is dry clean and intact Musculoskeletal: Pulses present and equal in all extremities, no peripheral edema Right lower extremity: Minimal pain with flexion at the right hip, skin over the right hip shows no trauma signs. Right leg is not shortened compared to the left Motor: no focal deficits noted Neurological: CN II-XII grossly intact, no focal motor or sensory deficits noted Skin: Intact with no visualized rashes Psych: Normal affect and mood - Labs CBC & Chem 7: 03/27/22 08:33 03/28/22 07:02 Labs: Abnormal Lab Results - Last 24 Hours (Table) 03/27/22 03/28/22 03/28/22 Range/Units 12:01 00:17 06:07 Creatinine (0.66-1.25) mg/dL POC Glucose (mg/dL) 130 H 120 H 112 H (70-110) mg/dL 03/28/22 Range/Units 07:02 Creatinine 0.52 L (0.66-1.25) mg/dL POC Glucose (mg/dL) (70-110) mg/dL Microbiology - Last 24 Hours (Table) 03/24/22 09:03 Blood Culture - Preliminary Blood No Growth after 96 hours Assessment and Plan Plan: Hemoptysis, likely secondary to bibasilar pneumonia. Sputum positive for oxacillin sensitive Staphylococcus aureus.The patient has Aureus, MSSA in the sputum and the blood culture was positive for staph hominis and the patient is currently covered with broad-spectrum antibiotics utilizing IV cefazolin and the patient has a tracheostomy with a trach collar and FiO2 of 35%. CAT scan of the chest was noted. No evidence of any lung masses. Patient has a tracheostomy tube in place and the patient is on trach collar at 35-40%.. The patient has MSSA in the sputum. At the same time, the blood culture was positive for staph hominis. S/P bronchoscopy, and BAL, right middle lobe (03/24), with sampling currently pending. The procedure was done on 03/22/2022 and there was no active endobronchial bleeding identified during the bronchoscopy. History of oral cancer, status post surgery, chemoradiation, and tracheostomy. History of pulmonary nodules. Status post PEG tube placement. Chronic back pain. History of ongoing tobacco use. 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 tracheostomy with a recent hospitalization for tracheobronchitis, April 2020 PEG tube with enteral feeding for nutritional support history of Sacral decubitus ulcer, recovered COPD Seizure disorder Gastric reflux disease. Plan Continue IV cefazolin Pulmonary toileting and deep breathing and frequent suctioning Enteral feeding for nutritional support and the patient is currently on Jevity Continue rest of home medications Repeat chest x-ray in a.m. Discharge planning is in progress
--- NOTE | 2022-03-30 13:12 | P.DS ---
Providers Date of admission: 03/22/22 12:11 Expected date of discharge: 03/28/22 Attending physician: Phill Tan MD Consults: 03/22/22 12:43 Consult Physician Urgent Consulting Provider: Salvador Mitchell Consult Reason/Comments: Hemoptysis Do you want consulting provider notified?: Yes 03/23/22 04:28 Consult Physician Routine Consulting Provider: Gonzales Caballero Consult Reason/Comments: 18 beat v tach run Do you want consulting provider notified?: Yes 03/23/22 07:12 Consult Physician Routine Consulting Provider: Lucille Farrell Consult Reason/Comments: + blood cultures Do you want consulting provider notified?: Yes Primary care physician: Fátima Velarde [place] Hospital Course: Final Diagnoses: Hemoptysis, possiblly secondary to bilateral pneumonia, status post [facility] hoscopy, cytology reporting negative for malignancy. Sputum reporting MSSA. Bacteremia, final blood cultures reporting Staphylococcus hominis, probably skin contaminant, repeat blood cultures negative NSVT Sinus tachycardia Hypokalemia Hyponatremia, hypovolemic History of carcinoma of the tongue, squamous cell carcinoma, status post surgical repair, chemo, radiation Mild to moderate protein calorie malnutrition Alcohol abuse, via PEG Ongoing nicotine dependence Hospital course:This is a 61-year-old gentleman with past medical history of carcinoma of the tongue, squamous cell CVA, tracheostomy, PEG tube, chemotherapy and radiation therapy, daily alcohol abuse, ongoing nicotine dependence, marijuana use, COPD,CAD, seizure disorder and multiple other medical issues presented to the ER with complaints of hemoptysis with nausea starting yesterday morning.sinus tachycardia-from 100s. Denies fever or chills. denies vomiting or diarrhea. Denies chest pain, palpitations. CT negative for PE, suggestive of bilateral lower lobe infiltrates. Preliminary Blood cultures reporting gram- positive cocci in groups. Afebrile normal WBC, hemoglobin 12, platelets 69, MCV 102.9, sodium improving, 131, potassium increased to 3.7, bicarb 29, renal function stable magnesium 1.8. UA negative, toxicology screen detecting tricyclic antidepressants. BNP 1390. Sputum culture pending. 03/24/2022 maintained on IV antibiotics of vancomycin. Blood culture preliminary reporting coagulase-negative staph, suspect contaminant. Repeat blood culture pending. No active bleeding, mild brownish mucousy drainage on tracheostomy dressing. Better strength. Denies shakes, chills, sweats. Denies nausea vomiting or diarrhea. Maintaining O2 sats in the high 90s on 40% trach collar. Bronchoscopy pending. 03/25/22 underwent bronchoscopy yesterday reporting thick purulent secretions ,no active bleeding, no mass or tumor. Cytology pending. Tolerated procedure well. Maintained on IV antibiotics of ceftriaxone, blood cultures reporting coagulase-negative staph. Telemetry sinus -ST, low 100s.Echo reporting EF of 20-25%, continues on metoprolol, lisinopril and Aldactone. significant clinical improvement.final blood cultures reporting Staphylococcus hominis, probably skin contaminant, repeat blood cultures negative.Sputum reporting MSSA. Denies shortness of breath. Denies cough. Denies hemoptysis. Denies chills or sweats. Patient has been cleared by all consults, being discharged home on Keflex as recommended per ID, in a stable condition with guarded prognosis. The impression and plan of care has been dictated as directed. : I performed a history and examination of this patient, discussed the same with the dictator. I agree with the dictator's note ,documented as a scribe. Any additional findings or plans will be noted. Patient Condition at Discharge: Stable Plan - Discharge Summary Discharge Rx Participant: Yes New Discharge Prescriptions: New Spironolactone [Aldactone] 25 mg PEG/G-TUBE DAILY #30 tab lisinopriL [Zestril] 2.5 mg PEG/G-TUBE DAILY #30 tab cephALEXin [Keflex Oral Susp] 500 mg PEG/G-TUBE TID 10 Days #300 ml Continue Cyanocobalamin [Vitamin B-12] 500 mcg PEG/G-TUBE DAILY Midodrine [ProAmatine] 5 mg PEG/G-TUBE BID Sodium Chloride Tab 1 gm PEG/G-TUBE DAILY Baclofen [Lioresal] 10 mg PEG/G-TUBE TID Levothyroxine Sodium 25 mcg PEG/G-TUBE DAILY lamoTRIgine [LaMICtal] 25 mg PEG/G-TUBE BID Amitriptyline HCl [Elavil] 25 mg PEG/G-TUBE HS Ipratropium-Albuterol Nebulize [Duoneb 0.5 mg-3 mg/3 ml Soln] 3 ml INHALATION RT-Q6H PRN PRN Reason: Shortness Of Breath Aspirin EC [Ecotrin Low Dose] 81 mg PEG/G-TUBE DAILY Sertraline [Zoloft] 25 mg PEG/G-TUBE DAILY busPIRone HCL 5 mg PEG/G-TUBE BID Prochlorperazine [Compazine] 10 mg PO DAILY PRN PRN Reason: Nausea Changed Metoprolol Tartrate [Lopressor] 50 mg PEG/G-TUBE DAILY #60 Discharge Medication List Cyanocobalamin [Vitamin B-12] 500 mcg PEG/G-TUBE DAILY 09/15/20 [History] Midodrine [ProAmatine] 5 mg PEG/G-TUBE BID 09/15/20 [History] Sodium Chloride Tab 1 gm PEG/G-TUBE DAILY 09/15/20 [History] Aspirin EC [Ecotrin Low Dose] 81 mg PEG/G-TUBE DAILY 02/08/21 [History] Amitriptyline HCl [Elavil] 25 mg PEG/G-TUBE HS 03/22/22 [History] Baclofen [Lioresal] 10 mg PEG/G-TUBE TID 03/22/22 [History] Ipratropium-Albuterol Nebulize [Duoneb 0.5 mg-3 mg/3 ml Soln] 3 ml INHALATION RT-Q6H PRN 03/22/22 [History] Levothyroxine Sodium 25 mcg PEG/G-TUBE DAILY 03/22/22 [History] Prochlorperazine [Compazine] 10 mg PO DAILY PRN 03/22/22 [History] Sertraline [Zoloft] 25 mg PEG/G-TUBE DAILY 03/22/22 [History] busPIRone HCL 5 mg PEG/G-TUBE BID 03/22/22 [History] lamoTRIgine [LaMICtal] 25 mg PEG/G-TUBE BID 03/22/22 [History] Metoprolol Tartrate [Lopressor] 50 mg PEG/G-TUBE DAILY #60 03/28/22 [Rx] Spironolactone [Aldactone] 25 mg PEG/G-TUBE DAILY #30 tab 03/28/22 [Rx] cephALEXin [Keflex Oral Susp] 500 mg PEG/G-TUBE TID 10 Days #300 ml 03/28/22 [Rx] lisinopriL [Zestril] 2.5 mg PEG/G-TUBE DAILY #30 tab 03/28/22 [Rx] Follow up Appointment(s)/Referral(s): Phill Tan MD [STAFF PHYSICIAN] - 03/30/22 4:00 pm ([place] office) Salvador Mitchell DO [Doctor of Osteopathic Medicine] - 04/07/22 10:15 am (with Pearl Jensen) Gonzales Caballero MD [STAFF PHYSICIAN] - 1 Week (the office will call you with an appointment) Patient Instructions/Handouts: Dehydration (DC), Coughing Up Blood (Hemoptysis) (GEN), Tachycardia (GEN) Discharge Disposition: HOME SELF-CARE
== END 2022-03-28 14:08 | disposition home health service (06) | DRG 208 ==
LOC: EC 08:40 → 3SCARD 12:11
PROVIDERS: ADMIT Family Medicine; ATTEND Family Medicine
PROC: 5A1945Z Respiratory Ventilation, 24-96 Consecutive Hours (ICD-10-PCS; principal; 2022-03-22)
PROC: 0B9D8ZX Drainage of Right Middle Lung Lobe, Via Natural or Artificial Opening Endoscopic, Diagnostic (ICD-10-PCS; 2022-03-24)
PROC: 3E0G76Z Introduction of Nutritional Substance into Upper GI, Via Natural or Artificial Opening (ICD-10-PCS; 2022-03-24)
DX: J15.211 Pneumonia due to Methicillin susceptible Staphylococcus aureus (principal); E44.0 Moderate protein-calorie malnutrition; R04.2 Hemoptysis; I47.2 Ventricular tachycardia; J44.0 Chronic obstructive pulmonary disease with (acute) lower respiratory infection; J96.11 Chronic respiratory failure with hypoxia; E87.1 Hypo-osmolality and hyponatremia; I50.22 Chronic systolic (congestive) heart failure; R78.81 Bacteremia; E86.0 Dehydration; B95.7 Other staphylococcus as the cause of diseases classified elsewhere; F32.A Depression, unspecified; G40.909 Epilepsy, unspecified, not intractable, without status epilepticus; J44.9 Chronic obstructive pulmonary disease, unspecified; Z20.822 Contact with and (suspected) exposure to COVID-19; D69.6 Thrombocytopenia, unspecified; R91.8 Other nonspecific abnormal finding of lung field; K76.0 Fatty (change of) liver, not elsewhere classified; F10.10 Alcohol abuse, uncomplicated; Z68.22 Body mass index [BMI] 22.0-22.9, adult; I95.89 Other hypotension; G62.9 Polyneuropathy, unspecified; Z93.0 Tracheostomy status; I25.82 Chronic total occlusion of coronary artery; F41.9 Anxiety disorder, unspecified; K59.00 Constipation, unspecified; G89.29 Other chronic pain; I25.10 Atherosclerotic heart disease of native coronary artery without angina pectoris; K21.9 Gastro-esophageal reflux disease without esophagitis; E87.6 Hypokalemia; M54.9 Dorsalgia, unspecified; R79.1 Abnormal coagulation profile; I25.5 Ischemic cardiomyopathy; F17.210 Nicotine dependence, cigarettes, uncomplicated; E86.1 Hypovolemia; Z93.1 Gastrostomy status; Z92.3 Personal history of irradiation; Z92.21 Personal history of antineoplastic chemotherapy; Z79.899 Other long term (current) drug therapy; Z79.82 Long term (current) use of aspirin; I25.2 Old myocardial infarction; Z91.81 History of falling; Z71.3 Dietary counseling and surveillance; Z85.810 Personal history of malignant neoplasm of tongue; Z85.818 Personal history of malignant neoplasm of other sites of lip, oral cavity, and pharynx
CPT/HCPCS: 31624; 36415; 71046; 71275; 80048; 80053; 80202; 80306; 81001; 82565; 83735; 83880; 84132; 84145; 84484; 85025; 85379; 85610; 86140; 87040; 87070; 87077; 87186; 87205; 87502; 87635; 88108; 88305; 93005; 93306; 94760; 96365; 96366; 96368; 96375; 99285

== ENCOUNTER 2022-05-01 02:19 | Inpatient (IN) | payer MEDICARE, OTHER ==
[2022-05-01] MEDS ORDERED: SODIUM CHLORIDE 0.9% 1,000 ML IV STA (02:49)
--- NOTE | 2022-05-01 02:51 | ED ---
URI HPI - General Chief Complaint: Upper Respiratory Infection Stated Complaint: coughing up blood Time Seen by Provider: 05/01/22 02:49 Source: patient, family, RN notes reviewed, old records reviewed Mode of arrival: wheelchair Limitations: no limitations - History of Present Illness Initial Comments: This is a 7-year-old male to the emergency department for evaluation patient presents as he is not feeling well. Patient presents today for evaluation regards to cough with hemoptysis blood in his cough. Significant blood in his cough. Patient feels weak and short of breath. Symptoms of been occurring throughout the course of the day no blood thinners MD Complaint: cough, other (Hemoptysis) -: hour(s) Severity: moderate Severity scale (1-10): 7 Quality: aching Consistency: constant Improves With: nothing Worsens With: deep breaths Context: other (History of tracheostomy and severe COPD) Associated Symptoms: myalgias, cough, shortness of breath, weight loss Treatments Prior to Arrival: none - Related Data Home Medications Medication Instructions Recorded Confirmed Cyanocobalamin [Vitamin B-12] 500 mcg PEG/G-TUBE DAILY 09/15/20 03/22/22 Midodrine [ProAmatine] 5 mg PEG/G-TUBE BID 09/15/20 03/22/22 Sodium Chloride Tab 1 gm PEG/G-TUBE DAILY 09/15/20 03/22/22 Aspirin EC [Ecotrin Low Dose] 81 mg PEG/G-TUBE DAILY 02/08/21 03/22/22 Amitriptyline HCl [Elavil] 25 mg PEG/G-TUBE HS 03/22/22 03/22/22 Baclofen [Lioresal] 10 mg PEG/G-TUBE TID 03/22/22 03/22/22 Ipratropium-Albuterol Nebulize 3 ml INHALATION RT-Q6H PRN 03/22/22 03/22/22 [Duoneb 0.5 mg-3 mg/3 ml Soln] Levothyroxine Sodium 25 mcg PEG/G-TUBE DAILY 03/22/22 03/22/22 Prochlorperazine [Compazine] 10 mg PO DAILY PRN 03/22/22 03/22/22 Sertraline [Zoloft] 25 mg PEG/G-TUBE DAILY 03/22/22 03/22/22 busPIRone HCL 5 mg PEG/G-TUBE BID 03/22/22 03/22/22 lamoTRIgine [LaMICtal] 25 mg PEG/G-TUBE BID 03/22/22 03/22/22 Previous Rx's Medication Instructions Recorded Metoprolol Tartrate [Lopressor] 50 mg PEG/G-TUBE DAILY #60 03/28/22 Spironolactone [Aldactone] 25 mg PEG/G-TUBE DAILY #30 tab 03/28/22 cephALEXin [Keflex Oral Susp] 500 mg PEG/G-TUBE TID 10 Days #300 03/28/22 ml lisinopriL [Zestril] 2.5 mg PEG/G-TUBE DAILY #30 tab 03/28/22 Allergies Allergy/AdvReac Type Severity Reaction Status Date / Time No Known Allergies Allergy Verified 05/01/22 02:25 Review of Systems ROS Statement: Those systems with pertinent positive or pertinent negative responses have been documented in the HPI. ROS Other: All systems not noted in ROS Statement are negative. Past Medical History Past Medical History: Cancer, COPD, GERD/Reflux, Myocardial Infarction (PR), Pneumonia, Seizure Disorder Additional Past Medical History / Comment(s): 07/30/20 fall with impacted R hip fracture/tracheal bronchitis, hemoptysis, pulmonary nodules. 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 Last chemo/radiation in 2017. Last Myocardial Infarction Date:: 2014 History of Any Multi-Drug Resistant Organisms: None Reported Past Surgical History: Heart Catheterization Additional Past Surgical History / Comment(s): Oral surgery with resection floor of mouth/tongue/mandible and bilateral neck resection with skin graft taken from L upper arm at [facility], tracheostomy, peg tube Past Anesthesia/Blood Transfusion Reactions: No Reported Reaction Additional Past Anesthesia/Blood Transfusion Reaction / Comment(s): adopted - no family hx Past Psychological History: Anxiety, Depression Smoking Status: Current every day smoker Past Alcohol Use History: Daily, Heavy Past Drug Use History: Marijuana - Past Family History Mother Family Medical History: Unable to Obtain Additional Family Medical History / Comment(s): pt is adopted General Exam Limitations: no limitations General appearance: alert, anxious, cachectic Head exam: Present: atraumatic, normocephalic, normal inspection Eye exam: Present: normal appearance, PERRL, EOMI. Absent: scleral icterus, conjunctival injection, periorbital swelling ENT exam: Present: normal exam, mucous membranes dry Neck exam: Present: normal inspection. Absent: tenderness, meningismus, lymphadenopathy Respiratory exam: Present: respiratory distress, wheezes, accessory muscle use, decreased breath sounds, prolonged expiratory. Absent: rales, rhonchi, stridor Cardiovascular Exam: Present: normal rhythm, tachycardia, normal heart sounds. Absent: systolic murmur, diastolic murmur, rubs, gallop, clicks GI/Abdominal exam: Present: soft, normal bowel sounds. Absent: distended, tenderness, guarding, rebound, rigid Extremities exam: Present: normal inspection, full ROM, normal capillary refill. Absent: tenderness, pedal edema, joint swelling, calf tenderness Back exam: Present: normal inspection Neurological exam: Present: alert, oriented X3, CN II-XII intact Psychiatric exam: Present: normal affect, normal mood Skin exam: Present: warm, dry, intact, normal color. Absent: rash Course Vital Signs 05/01/22 05/01/22 02:19 02:55 Temperature 97.5 F L Pulse Rate 131 H Respiratory 24 18 Rate Blood Pressure 106/75 O2 Sat by Pulse 97 Oximetry - Reevaluation(s) Reevaluation #1: 05/01/22 04:13 Attic record is reviewed Reevaluation #2: 05/01/22 04:13 Patient still has hemoptysis here in the ER Reevaluation #3: 05/01/22 04:13 Patient informed of results and questions answered - Consultations Consultation #1: Spoke with [facility] who agreed to admit the patient Medical Decision Making - Medical Decision Making 71 male DF for evaluation patient presents DF for evaluation of cough and congestion hemoptysis and found to have significantly low sodium. Patient will be admitted for fluid resuscitation. Treatments pulmonology consult - Lab Data Result diagrams: 05/01/22 02:53 05/01/22 02:53 Lab Results 05/01/22 05/01/22 05/01/22 Range/Units 02:37 02:53 02:53 WBC 5.3 (3.8-10.6) k/uL RBC 4.22 L (4.30-5.90) m/uL Hgb 13.7 (13.0-17.5) gm/dL Hct 41.5 (39.0-53.0) % MCV 98.3 (80.0-100.0) fL MCH 32.4 (25.0-35.0) pg MCHC 33.0 (31.0-37.0) g/dL RDW 13.3 (11.5-15.5) % Plt Count 149 L D (150-450) k/uL MPV 8.1 Neutrophils % 58 % Lymphocytes % 22 % Monocytes % 10 % Eosinophils % 4 % Basophils % 2 % Neutrophils # 3.1 (1.3-7.7) k/uL Lymphocytes # 1.2 (1.0-4.8) k/uL Monocytes # 0.5 (0-1.0) k/uL Eosinophils # 0.2 (0-0.7) k/uL Basophils # 0.1 (0-0.2) k/uL PT 10.1 (9.0-12.0) sec INR 0.9 (<1.2) APTT 24.3 (22.0-30.0) sec D-Dimer 1.07 H (<0.60) mg/L FEU Sodium (137-145) mmol/L Potassium (3.5-5.1) mmol/L Chloride (98-107) mmol/L Carbon Dioxide (22-30) mmol/L Anion Gap mmol/L BUN (9-20) mg/dL Creatinine (0.66-1.25) mg/dL Est GFR (CKD-EPI)AfAm (>60 ml/min/1.73 sqM) Est GFR (CKD-EPI)NonAf (>60 ml/min/1.73 sqM) Glucose (74-99) mg/dL Calcium (8.4-10.2) mg/dL Total Bilirubin (0.2-1.3) mg/dL AST (17-59) U/L ALT (4-49) U/L Alkaline Phosphatase (38-126) U/L Troponin I (0.000-0.034) ng/mL NT-Pro-B Natriuret Pep pg/mL Total Protein (6.3-8.2) g/dL Albumin (3.5-5.0) g/dL Coronavirus (PCR) Not Detected (Not Detectd) 05/01/22 05/01/22 05/01/22 Range/Units 02:53 02:53 02:53 WBC (3.8-10.6) k/uL RBC (4.30-5.90) m/uL Hgb (13.0-17.5) gm/dL Hct (39.0-53.0) % MCV (80.0-100.0) fL MCH (25.0-35.0) pg MCHC (31.0-37.0) g/dL RDW (11.5-15.5) % Plt Count (150-450) k/uL MPV Neutrophils % % Lymphocytes % % Monocytes % % Eosinophils % % Basophils % % Neutrophils # (1.3-7.7) k/uL Lymphocytes # (1.0-4.8) k/uL Monocytes # (0-1.0) k/uL Eosinophils # (0-0.7) k/uL Basophils # (0-0.2) k/uL PT (9.0-12.0) sec INR (<1.2) APTT (22.0-30.0) sec D-Dimer (<0.60) mg/L FEU Sodium 126 L (137-145) mmol/L Potassium 4.1 (3.5-5.1) mmol/L Chloride 90 L (98-107) mmol/L Carbon Dioxide 20 L (22-30) mmol/L Anion Gap 16 mmol/L BUN 9 (9-20) mg/dL Creatinine 0.57 L (0.66-1.25) mg/dL Est GFR (CKD-EPI)AfAm >90 (>60 ml/min/1.73 sqM) Est GFR (CKD-EPI)NonAf >90 (>60 ml/min/1.73 sqM) Glucose 81 (74-99) mg/dL Calcium 9.1 (8.4-10.2) mg/dL Total Bilirubin 0.3 (0.2-1.3) mg/dL AST 35 (17-59) U/L ALT 23 (4-49) U/L Alkaline Phosphatase 73 (38-126) U/L Troponin I <0.012 (0.000-0.034) ng/mL NT-Pro-B Natriuret Pep 231 pg/mL Total Protein 7.4 (6.3-8.2) g/dL Albumin 4.4 (3.5-5.0) g/dL Coronavirus (PCR) (Not Detectd) - EKG Data -: EKG Interpreted by Me (EKG is sinus tachycardia 123 MO 112 QRS 88 QTc 415) - Radiology Data Radiology results: report reviewed (Chest x-rays negative for acute disease), image reviewed Disposition Clinical Impression: Hemoptysis, Hyponatremia, Weakness, Acute exacerbation of COPD with asthma Disposition: ADMITTED IP TO THIS HOSP Condition: Fair Is patient prescribed a controlled substance at d/c from ED?: No Referrals: Fátima Velarde DO [Primary Care Provider] - 1-2 days Time of Disposition: 04:15
[2022-05-01 03:15] LABS: Basophils # (A) 0.1 k/uL (0-0.2); Basophils % (A) 2 %; Eosinophils # (A) 0.2 k/uL (0-0.7); Eosinophils % (A) 4 %; HCT 41.5 % (39.0-53.0); HGB 13.7 gm/dL (13.0-17.5); Lymphocytes # (A) 1.2 k/uL (1.0-4.8); Lymphocytes % (A) 22 %; MCH 32.4 pg (25.0-35.0); MCV 98.3 fL (80.0-100.0); Mean Platelet Volume 8.1; Monocytes # (A) 0.5 k/uL (0-1.0); Monocytes % (A) 10 %; Neutrophils # (A) 3.1 k/uL (1.3-7.7); Neutrophils % (A) 58 %; RBC 4.22 m/uL (4.30-5.90); RDW 13.3 % (11.5-15.5); WBC 5.3 k/uL (3.8-10.6)
[2022-05-01 03:18] LABS: Platelet Count 149 k/uL (150-450)
--- NOTE | 2022-05-01 03:19 | XR ---
EXAMINATION TYPE: XR chest 1V portable DATE OF EXAM: 05/01/2022 COMPARISON: 03/22/2022 HISTORY: Hemoptysis TECHNIQUE: Single view FINDINGS: Heart and mediastinum are normal. Lungs are clear. Diaphragm is normal. Bony thorax is inta ct. There is tracheostomy tube. There is left-sided central venous catheter with tip in the superior vena cava. IMPRESSION: No active cardiopulmonary disease. No change.
[2022-05-01 03:24] LABS: ALT 23 U/L (4-49); AST 35 U/L (17-59); African American GFR (CKD) >90 (>60 ml/min/1.73 sqM); Albumin 4.4 g/dL (3.5-5.0); Alkaline Phosphatase 73 U/L (38-126); Anion Gap 16 mmol/L; Blood Urea Nitrogen 9 mg/dL (9-20); Calcium 9.1 mg/dL (8.4-10.2); Carbon Dioxide 20 mmol/L (22-30); Chloride 90 mmol/L (98-107); Glucose 81 mg/dL (74-99); INR 0.9 (<1.2); Non-African American GFR(CKD) >90 (>60 ml/min/1.73 sqM); Potassium 4.1 mmol/L (3.5-5.1); Sodium 126 mmol/L (137-145); Total Bilirubin 0.3 mg/dL (0.2-1.3); Total Protein 7.4 g/dL (6.3-8.2)
[2022-05-01 03:25] LABS: Partial Thromboplastin Time 24.3 sec (22.0-30.0); Prothrombin Time 10.1 sec (9.0-12.0)
[2022-05-01] MEDS ORDERED: IPRATROPIUM-ALBUTEROL 3 ML NEB INHALATION STA (03:51)
[2022-05-01] MEDS ORDERED: MORPHINE SULFATE 2 MG/ML SYRINGE IVP STA (03:51)
[2022-05-01] MEDS ORDERED: NALOXONE 0.4 MG/ML 1 ML VIAL IV PRN (04:09)
[2022-05-01] MEDS ORDERED: MORPHINE SULFATE 4 MG/ML SYRINGE IV PRN (04:09)
[2022-05-01] MEDS ORDERED: ONDANSETRON 4 MG/2 ML VIAL IVP PRN (04:09)
[2022-05-01] MEDS ORDERED: methylPREDNISolone SOD SUCCI 125 MG/2 ML VIAL IV STA (04:11)
[2022-05-01] MEDS: SODIUM CHLORIDE 0.9% 1,000 ML IV SCH ×2 (04:32→17:42)
[2022-05-01] MEDS: IPRATROPIUM-ALBUTEROL 3 ML NEB INHALATION PRN ×2 (07:43→15:46)
[2022-05-01] MEDS ORDERED: IPRATROPIUM-ALBUTEROL 3 ML NEB INHALATION SCH (08:00)
[2022-05-01] MEDS: PIPERACILLIN-TAZOBACTAM 3.375 GM in SODIUM CHLORIDE 0.9% 100 ML IVPB SCH ×2 (10:36→17:35)
[2022-05-01] MEDS: methylPREDNISolone SOD SUCCI 125 MG/2 ML VIAL IV SCH ×2 (10:36→17:35)
--- NOTE | 2022-05-01 11:59 | P.CNPUL ---
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 He also has a history of hyponatremia, chronic hypertension, previous history of seizures secondary to alcohol withdrawal, chronic and ongoing tobacco dependence, marijuana use, anxiety/depression. He was here last month for shortness of breath cough and congestion. He did undergo bronchoscopy with BAL anus found to have methicillin sensitive Staphylococcus aureus. He was treated and discharged home on 03/28/2022. He re-presented here to the located within [facility] room early this morning with complaints of coughing up blood via his tracheostomy tube. Chest x-ray revealed no acute pulmonary process. White count 5.3. Hemoglobin 13.7. Platelets 149. Sodium 126. Potassium 4.1. Chloride 20. BUN 9. Creatinine 0.57. He is seen today in consultation in the emergency department. Currently sitting up on the stretcher. Awake and alert in no acute distress. He is maintaining good O2 saturations in the 90s on room air. He states he changes out his tracheostomy tube about every 3 months. There is evidence of small amount of dark blood noted. Review of Systems REVIEW OF SYSTEMS: CONSTITUTIONAL: Denies any recent significant weight loss or weight gain. EYES: Denies change in vision. EARS, NOSE, MOUTH, THROAT: Denies headaches, denies sore throat. CARDIOVASCULAR: Denies chest pain, palpitations or syncopal episodes. RESPIRATORY: Positive for hemoptysis. GASTROINTESTINAL: Denies change in appetite, denies abdominal pain GENITOURINARY: Denies hematuria, denies infections. MUSKULOSKELETAL: Denies pain, denies swelling. INTEGUMENTARY: Denies rash, denies eczema. NEUROLOGICAL: Denies recent memory loss, no recent seizure activity. PSYCHIATRIC: Denies anxiety, denies depression. HEMATOLOGIC/LYMPHATIC: Denies anemia, denies enlarged lymph nodes. Past Medical History Past Medical History: Cancer, COPD, GERD/Reflux, Myocardial Infarction ([place]), Pneumonia, Seizure Disorder Additional Past Medical History / Comment(s): 07/30/20 fall with impacted R hip fracture/tracheal bronchitis, hemoptysis, pulmonary nodules. 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 Last chemo/radiation in 2017. Last Myocardial Infarction Date:: 2014 History of Any Multi-Drug Resistant Organisms: None Reported Past Surgical History: Heart Catheterization Additional Past Surgical History / Comment(s): Oral surgery with resection floor of mouth/tongue/mandible and bilateral neck resection with skin graft taken from L upper arm at [facility], tracheostomy, peg tube Past Anesthesia/Blood Transfusion Reactions: No Reported Reaction Additional Past Anesthesia/Blood Transfusion Reaction / Comment(s): adopted - no family hx Past Psychological History: Anxiety, Depression Smoking Status: Current every day smoker Past Alcohol Use History: Daily, Heavy Past Drug Use History: Marijuana - Past Family History Mother Family Medical History: Unable to Obtain Additional Family Medical History / Comment(s): pt is adopted Medications and Allergies Home Medications Medication Instructions Recorded Confirmed Type Cyanocobalamin [Vitamin B-12] 500 mcg PEG/G-TUBE DAILY 09/15/20 03/22/22 History Midodrine [ProAmatine] 5 mg PEG/G-TUBE BID 09/15/20 03/22/22 History Sodium Chloride Tab 1 gm PEG/G-TUBE DAILY 09/15/20 03/22/22 History Aspirin EC [Ecotrin Low Dose] 81 mg PEG/G-TUBE DAILY 02/08/21 03/22/22 History Amitriptyline HCl [Elavil] 25 mg PEG/G-TUBE HS 03/22/22 03/22/22 History Baclofen [Lioresal] 10 mg PEG/G-TUBE TID 03/22/22 03/22/22 History Ipratropium-Albuterol Nebulize 3 ml INHALATION RT-Q6H PRN 03/22/22 03/22/22 H istory [Duoneb 0.5 mg-3 mg/3 ml Soln] Levothyroxine Sodium 25 mcg PEG/G-TUBE DAILY 03/22/22 03/22/22 History Prochlorperazine [Compazine] 10 mg PO DAILY PRN 03/22/22 03/22/22 History Sertraline [Zoloft] 25 mg PEG/G-TUBE DAILY 03/22/22 03/22/22 History busPIRone HCL 5 mg PEG/G-TUBE BID 03/22/22 03/22/22 History lamoTRIgine [LaMICtal] 25 mg PEG/G-TUBE BID 03/22/22 03/22/22 History Metoprolol Tartrate [Lopressor] 50 mg PEG/G-TUBE DAILY #60 03/28/22 03/22/22 Rx Spironolactone [Aldactone] 25 mg PEG/G-TUBE DAILY #30 tab 03/28/22 Rx cephALEXin [Keflex Oral Susp] 500 mg PEG/G-TUBE TID 10 Days #300 03/28/22 Rx ml lisinopriL [Zestril] 2.5 mg PEG/G-TUBE DAILY #30 tab 03/28/22 Rx Allergies Allergy/AdvReac Type Severity Reaction Status Date / Time No Known Allergies Allergy Verified 05/01/22 02:25 Physical Exam Vitals: Vital Signs Temp Pulse Resp BP Pulse Ox 05/01/22 10:43 107 H 16 117/75 98 05/01/22 07:56 115 H 05/01/22 07:46 103 H 05/01/22 05:00 112 H 15 117/74 96 05/01/22 04:18 116 H 05/01/22 04:10 110 H 05/01/22 04:00 113 H 14 124/76 98 05/01/22 03:00 113 H 10 L 116/73 98 05/01/22 02:55 18 05/01/22 02:19 97.5 F L 131 H 24 106/75 97 Intake and Output 04/30/22 05/01/22 05/01/22 22:59 06:59 14:59 Other: Weight 68.492 kg General Impression: 61-year-old male patient, alert and oriented x3, not in acute distress, cachexic, and the patient has an extensive surgical scar over his face with possibly a muscle flap. HEENT: Normocephalic atraumatic, extra-ocular movements intact, pupils equal and reactive to light bilaterally, mucous membranes moist, tracheostomy in place and this is a Shiley tracheostomy tube. Cardiovascular: Cardiac exam revealed the PMI to be normally situated and sized. The rhythm was regular and no extrasystoles were noted during several minutes of auscultation. The first and second heart sounds were normal and physiologic splitting of the second heart sound was noted. There were no murmurs, rubs, clicks, or gallops. Chest: Able to complete full sentences, no retractions, no tachypnea Abdomen: abdomen soft, non-tender, non-distended, no organomegaly, PEG tube is dry clean and intact Musculoskeletal: Pulses present and equal in all extremities, no peripheral edema Right lower extremity: Minimal pain with flexion at the right hip, skin over the right hip shows no trauma signs. Right leg is not shortened compared to the left Motor: no focal deficits noted Neurological: CN II-XII grossly intact, no focal motor or sensory deficits noted Skin: Intact with no visualized rashes Psych: Normal affect and mood Results - Laboratory Findings CBC and BMP: 05/01/22 02:53 05/01/22 02:53 PT/INR, D-dimer PT 10.1 sec (9.0-12.0) 05/01/22 02:53 INR 0.9 (<1.2) 05/01/22 02:53 D-Dimer 1.07 mg/L FEU (<0.60) H 05/01/22 02:53 Abnormal lab findings: Abnormal Labs 05/01/22 05/01/22 05/01/22 02:53 02:53 02:53 RBC 4.22 L Plt Count 149 L D D-Dimer 1.07 H Sodium 126 L Chloride 90 L Carbon Dioxide 20 L Creatinine 0.57 L - Diagnostic Findings Chest x-ray: image reviewed Assessment and Plan Assessment: Hemoptysis suspect secondary tracheostomy, chest x-ray reveals no acute process, sputum culture pending Hyponatremia, currently 126. Continue saline at 125 ML's per hour Recent admission for hemoptysis secondary to MSSA sputum culture, status post bronchoscopy on 03/22/2022 with no signs of active bleeding Squamous cell carcinoma of the oral cavity postsurgical resection with reconstruction and post insertion of a tracheostomy and PEG tube for airway protection and swallowing. History of pulmonary nodules. Chronic back pain. History of ongoing tobacco use. PEG tube with enteral feeding for nutritional support History of Sacral decubitus ulcer, recovered COPD Seizure disorder secondary to alcohol withdrawal Gastric reflux disease. Plan: The patient was seen and evaluated Chest x-ray, labs, and medications reviewed Zosyn, bronchodilators, IV Solu-Medrol Normal saline at 125 an hour Follow-up labs in a.m. Sputum culture Probable discharge in the a.m. We will continue to follow and make further recommendations based on his clinical status I have personally seen and examined the patient, performed the documentation and the assessment and plan as written. Number of minutes spent on the visit: 20.
[2022-05-01] MEDS ORDERED: BACLOFEN 10 MG TAB PO PRN (14:30)
[2022-05-01] MEDS: lamoTRIgine 25 MG TAB PO SCH (17:35)
[2022-05-01] MEDS: MIDODRINE 5 MG TAB PO SCH (17:35)
--- NOTE | 2022-05-01 18:50 | P.HPIM ---
History of Present Illness This is a pleasant 61 years old male with past medical history of COPD, GERD, coronary artery disease, seizure disorder, is status post PEG tube and tracheostomy. Chronic hypotension, hyponatremia, sacral decubitus ulcer, chronic back pain. patient presents because of episodes of bloody discharge from his tracheostomy which happened in the afternoon about 4-5 times. He denies any dyspnea, no fever, no coughing already has some secretions. Also he is been having some diarrhea for the last 3 days about once or twice per day but they were loose and no blood noticed in them. He denies any other symptoms, no chest pain, no dizziness, no abdominal pain or vomiting. No urinary complaints. No weakness numbness or dizziness. Patient is febrile but tachycardic labs showed a Dari 5.3. Platelet 149. Hemoglobin 13.7. INR 0.9. Sodium is low as 126, creatinine is normal. Liver enzymes not elevated. Troponin and BNP are negative. And coronavirus not detected. Chest x-ray: No acute process. EKG shows sinus tachycardia at [address]-T changes. QTC is 4:15. Patient is currently on [facility] Review of Systems Review of systems CONSTITUTIONAL: No fever, no malaise, no fatigue. HEENT: No recent visual problems or hearing problems. Denied any sore throat. CARDIOVASCULAR: No orthopnea, PND, no palpitations, no syncope. PULMONARY: No shortness of breath, no cough, no hemoptysis. GASTROINTESTINAL: No diarrhea, no nausea, no vomiting, no abdominal pain. Normoactive bowel sounds. NEUROLOGICAL: No headaches, no weakness, no numbness. HEMATOLOGICAL: Denies any bleeding or petechiae. GENITOURINARY: Denies any burning micturition, frequency, or urgency. MUSCULOSKELETAL/RHEUMATOLOGICAL: Denies any joint pain, swelling, or any muscle pain. ENDOCRINE: Denies any polyuria or polydipsia. Past Medical History Past Medical History: Cancer, COPD, GERD/Reflux, Myocardial Infarction ([place]), Pneumonia, Seizure Disorder Additional Past Medical History / Comment(s): 07/30/20 fall with impacted R hip fracture/tracheal bronchitis, hemoptysis, pulmonary nodules. 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 Last chemo/radiation in 2017. Last Myocardial Infarction Date:: 2014 History of Any Multi-Drug Resistant Organisms: None Reported Past Surgical History: Heart Catheterization Additional Past Surgical History / Comment(s): Oral surgery with resection floor of mouth/tongue/mandible and bilateral neck resection with skin graft taken from L upper arm at [facility], tracheostomy, peg tube Past Anesthesia/Blood Transfusion Reactions: No Reported Reaction Additional Past Anesthesia/Blood Transfusion Reaction / Comment(s): adopted - no family hx Past Psychological History: Anxiety, Depression Smoking Status: Current every day smoker Past Alcohol Use History: Daily, Heavy Past Drug Use History: Marijuana - Past Family History Mother Family Medical History: Unable to Obtain Additional Family Medical History / Comment(s): pt is adopted Medications and Allergies Home Medications Medication Instructions Recorded Confirmed Type Cyanocobalamin [Vitamin B-12] 500 mcg PEG/G-TUBE DAILY 09/15/20 05/01/22 History Midodrine [ProAmatine] 5 mg PEG/G-TUBE BID 09/15/20 05/01/22 History Sodium Chloride Tab 1 gm PEG/G-TUBE DAILY 09/15/20 05/01/22 History Aspirin EC [Ecotrin Low Dose] 81 mg PEG/G-TUBE DAILY 02/08/21 05/01/22 History Amitriptyline HCl [Elavil] 25 mg PEG/G-TUBE HS 03/22/22 05/01/22 History Baclofen [Lioresal] 10 mg PEG/G-TUBE TID 03/22/22 05/01/22 History Ipratropium-Albuterol Nebulize 3 ml INHALATION RT-Q6H PRN 03/22/22 05/01/22 History [Duoneb 0.5 mg-3 mg/3 ml Soln] Levothyroxine Sodium 25 mcg PEG/G-TUBE DAILY 03/22/22 05/01/22 History Prochlorperazine [Compazine] 10 mg PEG/G-TUBE DAILY PRN 03/22/22 05/01/22 History Sertraline [Zoloft] 25 mg PEG/G-TUBE DAILY 03/22/22 05/01/22 History busPIRone HCL 5 mg PEG/G-TUBE BID 03/22/22 05/01/22 History lamoTRIgine [LaMICtal] 25 mg PEG/G-TUBE BID 03/22/22 05/01/22 History Metoprolol Tartrate [Lopressor] 50 mg PEG/G-TUBE DAILY #60 03/28/22 05/01/22 Rx Spironolactone [Aldactone] 25 mg PEG/G-TUBE DAILY #30 tab 03/28/22 05/01/22 Rx lisinopriL [Zestril] 2.5 mg PEG/G-TUBE DAILY #30 tab 03/28/22 05/01/22 Rx Allergies Allergy/AdvReac Type Severity Reaction Status Date / Time No Known Allergies Allergy Verified 05/01/22 02:25 Physical Exam Vitals: Vital Signs Temp Pulse Resp BP Pulse Ox 05/01/22 10:43 107 H 16 117/75 98 05/01/22 07:56 115 H 05/01/22 07:46 103 H 05/01/22 05:00 112 H 15 117/74 96 05/01/22 04:18 116 H 05/01/22 04:10 110 H 05/01/22 04:00 113 H 14 124/76 98 05/01/22 03:00 113 H 10 L 116/73 98 05/01/22 02:55 18 05/01/22 02:19 97.5 F L 131 H 24 106/75 97 Intake and Output 04/30/22 05/01/22 05/01/22 22:59 06:59 14:59 Other: Weight 68.492 kg GENERAL: The patient is alert and oriented x3, not in any acute distress. Well developed, well nourished. HEENT: Pupils are round and equally reacting to light. EOMI. No scleral icterus. No conjunctival pallor. Normocephalic, atraumatic. No pharyngeal erythema. No thyromegaly. CARDIOVASCULAR: S1 and S2 present. No murmurs, rubs, or gallops. -PULMONARY: Chest is clear to auscultation, no wheezing or crackles. Tracheostomy in a Place -ABDOMEN: Soft, nontender, nondistended, normoactive bowel sounds. No palpable organomegaly. PEG tube in a Place MUSCULOSKELETAL: No joint swelling or deformity. EXTREMITIES: No cyanosis, clubbing, or pedal edema. NEUROLOGICAL: Gross neurological examination did not reveal any focal deficits. SKIN: No rashes. no petechiae. Results CBC & Chem 7: 05/01/22 02:53 05/01/22 02:53 Labs: Abnormal Lab Results - Last 24 Hours (Table) 05/01/22 05/01/22 05/01/22 Range/Units 02:53 02:53 02:53 RBC 4.22 L (4.30-5.90) m/uL Plt Count 149 L D (150-450) k/uL D-Dimer 1.07 H (<0.60) mg/L FEU Sodium 126 L (137-145) mmol/L Chloride 90 L (98-107) mmol/L Carbon Dioxide 20 L (22-30) mmol/L Creatinine 0.57 L (0.66-1.25) mg/dL Assessment and Plan Assessment: Bloody discharge from tracheostomy suspected infection Hyponatremia, most likely hypovolemic Diarrhea, most likely reactive. Rule out C. diff Dehydration History of COPD, not an active issue History of GERD History of coronary artery disease History of seizure Status post PEG tube on [place] History of pressure ulcer Plan: This is a pleasant 61 years old male who presents with bloody discharge from his tracheostomy tube. Continue with Zosyn Pulmonary consult Check for C. diff Continue with IV fluids and monitor sodium level. Send urine for osmolality and urine sodium Labs and medication were reviewed.. Continue same treatment. Continue with symptomatic treatment. Resume home medication. Monitor lytes and vitals. DVT and GI prophylaxis. Further recommendations as per clinical course of the patient DVT prophylaxis: No Subcutaneous heparin for bleeding from tracheostomy GI Prophylaxis: Pepcid Prognosis is guarded
[2022-05-01] MEDS ORDERED: AMITRIPTYLINE HCL 25 MG TAB PO SCH (21:00)
[2022-05-02] MEDS: methylPREDNISolone SOD SUCCI 125 MG/2 ML VIAL IV SCH ×3 (00:15→11:50)
[2022-05-02] MEDS: busPIRone HCl 5 MG TAB PO SCH ×2 (00:15→07:56)
[2022-05-02] MEDS: SODIUM CHLORIDE 0.9% 1,000 ML IV SCH ×2 (00:16→05:44)
[2022-05-02] MEDS: PIPERACILLIN-TAZOBACTAM 3.375 GM in SODIUM CHLORIDE 0.9% 100 ML IVPB SCH ×2 (01:14→07:56)
--- NOTE | 2022-05-02 01:52 | US ---
EXAMINATION TYPE: US venous doppler duplex LE DATE OF EXAM: 05/02/2022 1:41 AM COMPARISON: NONE CLINICAL HISTORY: Elevated D. Dimer. elevated D-Dimer SIDE PERFORMED: Bilateral TECHNIQUE: The lower extremity deep venous system is examined utilizing real time linear array sonog dayana with graded compression, doppler sonography and color-flow sonography. VESSELS IMAGED: Common Femoral Vein Deep Femoral Vein Greater Saphenous Vein * Femoral Vein Popliteal Vein Small Saphenous Vein * Proximal Calf Veins (* superficial vessels) Right Leg: no evidence of DVT Left Leg: no evidence of DVT IMPRESSION: No sign of deep vein thrombosis in both legs.
[2022-05-02 02:50] VITALS: RESP 17
--- NOTE | 2022-05-02 05:11 | CT ---
EXAMINATION TYPE: CT angio chest DATE OF EXAM: 05/02/2022 COMPARISON: March 22, 2022 HISTORY: ELEVATED D DIMER CT DLP: 283.6 mGycm Automated exposure control for dose reduction was used. CONTRAST: Performed with IV Contrast, patient injected with 70 mL of Isovue 370. Images obtained from the thoracic inlet to the diaphragm with the IV contrast. There are Three-D post processed images. There is tracheostomy tube. No mediastinal adenopathy. There are no hilar masses. Lungs are clear of consolidation. There is mild subsegmental atelectasis or scarring at the lung bases. No pleural effus ion. No pericardial effusion. Heart size is normal. There is normal contrast opacification of the pulmonary arteries. No filling defect. The thoracic spine is intact. No compression fracture. There is degenerative spur formation. IMPRESSION: No evidence of pulmonary embolism. Mild fibrotic changes and subsegmental atelectasis at the lung bases. No suspicious pulmonary mass.
[2022-05-02] MEDS ORDERED: LEVOTHYROXINE 25 MCG TAB PO SCH (06:30)
[2022-05-02 07:46] VITALS: BP 132/81; TEMP 97.8
[2022-05-02] MEDS: lamoTRIgine 25 MG TAB PO SCH (07:55)
[2022-05-02] MEDS: MIDODRINE 5 MG TAB PO SCH (07:56)
[2022-05-02] MEDS ORDERED: METOPROLOL TARTRATE 25 MG TAB PO STA (08:57)
[2022-05-02] MEDS ORDERED: SPIRONOLACTONE 25 MG TAB PO SCH (09:00)
[2022-05-02] MEDS ORDERED: SERTRALINE 25 MG TAB PO SCH (09:00)
[2022-05-02] MEDS ORDERED: METOPROLOL TARTRATE 25 MG TAB PO SCH (09:00)
[2022-05-02] MEDS ORDERED: ASPIRIN 81 MG PO SCH (09:00)
[2022-05-02] MEDS: IPRATROPIUM-ALBUTEROL 3 ML NEB INHALATION PRN (09:04)
[2022-05-02] MEDS ORDERED: IPRATROPIUM-ALBUTEROL 3 ML NEB INHALATION PRN (09:18)
--- NOTE | 2022-05-02 09:32 | P.CRDCN ---
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 Patient follows in the office with Dr. Caballero but has not been seen in the office since 2018. We have been asked to see the patient in consultation for tachycardia. Patient examined at the bedside. Patient presented to the hospital with a chief complaint of coughing up blood. Patient denies chest pain or pressure. Denies SOB. Documented heart rates are in the 100-110 range. Patient is not on telemetry. Blood pressure stable. * EKG reveals sinus tachycardia with a heart rate of 123 * Chest xray negative for acute process. * Chest CT: No evidence of pulmonary embolism * Laboratory data: WBC 5.3. Hemoglobin 13.7. Platelet count 149. Sodium 126. Potassium 4.1. BUN 9. Creatinine 0.57. Troponin negative 2. ProBNP 231. * Current home cardiac medications include aspirin 81 mg daily, metoprolol tartrate 50 mg daily, Aldactone 25 mg daily, lisinopril 2.5 mg daily * Most recent echocardiogram obtained in March 2022 revealed ejection fraction 20-25% REVIEW OF SYSTEMS: At the time of my exam: CONSTITUTIONAL: Denies fever or chills. HEENT: Denies blurred vision, vision changes, or eye pain. Denies hemoptysis CARDIOVASCULAR: Denies chest pain. Denies orthopnea. Denies PND. Denies palpitations RESPIRATORY: Denies shortness of breath. GASTROINTESTINAL: Denies abdominal pain. Denies nausea or vomiting. HEMATOLOGIC: Denies bleeding disorders. GENITOURINARY: Denies any blood in urine. SKIN: Denies pruitis. Denies rash. PHYSICAL EXAM: VITAL SIGNS: Reviewed. GENERAL: Well-developed in no acute distress. HEENT: Head is normocephalic. Pupils are equal, round. Sclerae anicteric. Mucous membranes of the mouth are moist. Neck supple. No JVD or thyromegaly LUNGS: Respirations even and unlabored. Lungs essentially clear to auscultation bilaterally. HEART: Regular rate and rhythm. S1 and S2 heard. ABDOMEN: Soft. Nondistended. Nontender. EXTREMITIES: Normal range of motion. No clubbing or cyanosis. Peripheral pulses intact. No lower extremity edema NEUROLOGIC: Awake and alert. Oriented x 3. 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 Signing provider agrees with the documented findings, assessment, and plan of care. Past Medical History Past Medical History: Cancer, COPD, GERD/Reflux, Myocardial Infarction ([place]), Pneumonia, Seizure Disorder Additional Past Medical History / Comment(s): 07/30/20 fall with impacted R hip fracture/tracheal bronchitis, hemoptysis, pulmonary nodules. 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 Last chemo/radiation in 2016. Last Myocardial Infarction Date:: 2014 History of Any Multi-Drug Resistant Organisms: None Reported Past Surgical History: Heart Catheterization Additional Past Surgical History / Comment(s): Oral surgery with resection floor of mouth/tongue/mandible and bilateral neck resection with skin graft taken from L upper arm at [facility], tracheostomy, peg tube Past Anesthesia/Blood Transfusion Reactions: No Reported Reaction Additional Past Anesthesia/Blood Transfusion Reaction / Comment(s): adopted - no family hx Past Psychological History: Anxiety, Depression Additional Psychological History / Comment(s): Pt resides with his spouse. He states he has home care thru [facility]. He uses a walker to ambulate. Smoking Status: Current every day smoker Past Alcohol Use History: Daily, Heavy Additional Past Alcohol Use History / Comment(s): Pt started smoking in 1977 and is a 1/2 ppd smoker. Pt states he now has a beer occasionally thru peg tube. Past Drug Use History: Marijuana Additional Drug Use History / Comment(s): Pt uses marijuana rarely. - Past Family History Mother Family Medical History: Unable to Obtain Additional Family Medical History / Comment(s): pt is adopted Medications and Allergies Home Medications Medication Instructions Recorded Confirmed Type Cyanocobalamin [Vitamin B-12] 500 mcg PEG/G-TUBE DAILY 09/15/20 05/01/22 History Midodrine [ProAmatine] 5 mg PEG/G-TUBE BID 09/15/20 05/01/22 History Sodium Chloride Tab 1 gm PEG/G-TUBE DAILY 09/15/20 05/01/22 History Aspirin EC [Ecotrin Low Dose] 81 mg PEG/G-TUBE DAILY 02/08/21 05/01/22 History Amitriptyline HCl [Elavil] 25 mg PEG/G-TUBE HS 03/22/22 05/01/22 History Baclofen [Lioresal] 10 mg PEG/G-TUBE TID 03/22/22 05/01/22 History Ipratropium-Albuterol Nebulize 3 ml INHALATION RT-Q6H PRN 03/22/22 05/01/22 History [Duoneb 0.5 mg-3 mg/3 ml Soln] Levothyroxine Sodium 25 mcg PEG/G-TUBE DAILY 03/22/22 05/01/22 History Prochlorperazine [Compazine] 10 mg PEG/G-TUBE DAILY PRN 03/22/22 05/01/22 History Sertraline [Zoloft] 25 mg PEG/G-TUBE DAILY 03/22/22 05/01/22 History busPIRone HCL 5 mg PEG/G-TUBE BID 03/22/22 05/01/22 History lamoTRIgine [LaMICtal] 25 mg PEG/G-TUBE BID 03/22/22 05/01/22 History Metoprolol Tartrate [Lopressor] 50 mg PEG/G-TUBE DAILY #60 03/28/22 05/01/22 Rx Spironolactone [Aldactone] 25 mg PEG/G-TUBE DAILY #30 tab 03/28/22 05/01/22 Rx lisinopriL [Zestril] 2.5 mg PEG/G-TUBE DAILY #30 tab 03/28/22 05/01/22 Rx Allergies Allergy/AdvReac Type Severity Reaction Status Date / Time No Known Allergies Allergy Verified 05/01/22 02:25 Physical Exam Vitals: Vital Signs Temp Pulse Pulse Resp BP BP Pulse Ox 05/02/22 09:16 106 H 05/02/22 09:07 110 H 05/02/22 07:44 97.8 F 108 H 17 132/81 98 05/02/22 01:41 97.6 F 99 17 134/73 97 05/01/22 23:15 99 17 05/01/22 19:25 97.6 F 114 H 18 135/82 98 05/01/22 18:59 106 H 05/01/22 17:43 116 H 16 128/78 99 05/01/22 15:56 112 H 05/01/22 15:46 104 H 05/01/22 10:43 107 H 16 117/75 98 Intake and Output 05/01/22 05/02/22 05/02/22 22:59 06:59 14:59 Output Total 675 Balance -675 Output: Urine 675 Other: Voiding Method Urinal Weight 68.492 kg Results 05/01/22 02:53 05/01/22 02:53 Cardiac Enzymes 05/02/22 Range/Units 02:51 Troponin I <0.012 (0.000-0.034) ng/mL Current Medications Generic Name Dose Route Start Last Admin Trade Name Freq PRN Reason Stop Dose Admin Albuterol/Ipratropium 3 ml 05/01/22 04:34 05/02/22 09:04 Ipratropium-Albuterol 3 Ml Neb INHALATION 3 ml RT-QID PRN Administration Shortness Of Breath Or Wheezing Amitriptyline HCl 25 mg 05/01/22 21:00 05/02/22 00:15 Amitriptyline Hcl 25 Mg Tab PO 25 mg HS ALEJO Administration Aspirin 81 mg 05/02/22 09:00 05/02/22 07:56 Aspirin 81 Mg PO 81 mg DAILY ALEJO Administration Baclofen 10 mg 05/01/22 14:30 05/01/22 17:35 Baclofen 10 Mg Tab PO 10 mg TID PRN Administration Muscle Spasm Buspirone HCl 5 mg 05/01/22 21:00 05/02/22 07:56 Buspirone Hcl 5 Mg Tab PO 5 mg BID ALEJO Administration Sodium Chloride 1,000 mls @ 125 mls/hr 05/01/22 04:15 05/02/22 05:44 Saline 0.9% IV 125 mls/hr .Q8H ALEJO Administration Piperacillin Sod/Tazobactam 100 mls @ 25 mls/hr 05/01/22 08:30 05/02/22 07:56 Sod 3.375 gm/ Sodium Chloride IVPB 25 mls/hr Q8HR ALEJO Administration Protocol Lamotrigine 25 mg 05/01/22 21:00 05/02/22 07:55 Lamotrigine 25 Mg Tab PO 25 mg BID ALEJO Administration Levothyroxine Sodium 25 mcg 05/02/22 06:30 05/02/22 05:44 Levothyroxine 25 Mcg Tab PO 25 mcg DAILY@0630 ALEJO Administration Lisinopril 2.5 mg 05/02/22 09:00 05/02/22 07:56 Lisinopril 2.5 Mg Tab PO 2.5 mg DAILY ALEJO Administration Methylprednisolone Sodium Succinate 60 mg 05/01/22 10:00 05/02/22 03:51 Methylprednisolone Sod Succi 125 Mg/2 Ml Vial IV 60 mg Q6H ALEJO Administration Metoprolol Tartrate 50 mg 05/03/22 09:00 Metoprolol Tartrate 50 Mg Tab PO DAILY [facility] Midodrine 5 mg 05/01/22 17:30 05/02/22 07:56 Midodrine 5 Mg Tab PO 5 mg AC-BID ALEJO Administration Morphine Sulfate 4 mg 05/01/22 04:09 Morphine Sulfate 4 Mg/Ml Syringe IV Q4HR PRN Severe Pain (Scale 7 to 10) Naloxone HCl 0.2 mg 05/01/22 04:09 Naloxone 0.4 Mg/Ml 1 Ml Vial IV Q2M PRN Opioid Reversal Ondansetron HCl 4 mg 05/01/22 04:09 Ondansetron 4 Mg/2 Ml Vial IVP Q8HR PRN Nausea And Vomiting Sertraline HCl 25 mg 05/02/22 09:00 05/02/22 07:56 Sertraline 25 Mg Tab PO 25 mg DAILY ALEJO Administration Spironolactone 25 mg 05/02/22 09:00 05/02/22 07:56 Spironolactone 25 Mg Tab PO 25 mg DAILY ALEJO Administration Intake and Output 05/01/22 05/02/22 05/02/22 22:59 06:59 14:59 Output Total 675 Balance -675 Output: Urine 675 Other: Voiding Method Urinal Weight 68.492 kg 05/01/22 02:53 05/01/22 02:53
[2022-05-02 09:39] LABS: Basophils # (A) 0.02 X 10*3/uL (0.00-0.10); Basophils % (A) 0.2 %; Eosinophils # (A) 0 X 10*3/uL (0.04-0.35); Eosinophils % (A) 0 %; HCT 35.5 % (39.6-50.0); HGB 11.6 g/dL (13.0-17.0); Immature Grans, Automated 0.9 %; Lymphocytes # (A) 0.41 X 10*3/uL (0.90-5.00); Lymphocytes % (A) 3.2 %; MCH 32.7 pg (27.0-32.0); MCHC 32.7 g/dL (32.0-37.0); Mean Platelet Volume 11.2 fL (9.5-12.2); Monocytes # (A) 0.32 X 10*3/uL (0.20-1.00); Monocytes % (A) 2.5 %; NRBC Per 100 WBC 0 /100 WBCS (0.0-0.0); Neutrophils # (A) 11.77 X 10*3/uL (1.80-7.70); Neutrophils % (A) 93.2 %; Platelet Count 174 X 10*3/uL (140-440); RBC 3.55 X 10*6/uL (4.40-5.60); RDW 13.8 % (11.5-14.5); WBC 12.63 X 10*3/uL (4.50-10.00)
[2022-05-02 10:04] LABS: African American GFR (CKD) 118.9 (60.0-200.0); Albumin 4.1 g/dL (3.8-4.9); Albumin/Globulin Ratio 1.52 (1.60-3.17); Anion Gap 12.1 mmol/L (10.00-18.00); Blood Urea Nitrogen 11.9 mg/dL (9.0-27.0); Calcium 9.4 mg/dL (8.7-10.3); Carbon Dioxide 23.9 mmol/L (20.0-27.5); Globulin 2.7 g/dL (1.6-3.3); Magnesium 2.2 mg/dL (1.5-2.4); Non-African American GFR(CKD) 102.6 (60.0-200.0); Phosphorus 2.3 mg/dL (2.4-5.1); Potassium 3.9 mmol/L (3.5-5.5); Total Bilirubin 0.3 mg/dL (0.30-1.20); Total Protein 6.8 g/dL (6.2-8.2)
[2022-05-02 11:32] VITALS: BMI 22.9
[2022-05-02 12:25] VITALS: PULSE 106
[2022-05-02] MEDS ORDERED: IPRATROPIUM-ALBUTEROL 3 ML NEB INHALATION SCH (13:00)
--- NOTE | 2022-05-02 14:25 | P.PN ---
Subjective Progress Note Date: 05/02/22 This is a pleasant 61-year-old male patientwith a known history of oral squamous cell carcinoma requiring surgery/chemoradiation and subsequent tracheostomy and PEG tube placement. He also has a history of hyponatremia, chronic hypertension, previous history of seizures secondary to alcohol withdrawal, chronic and ongoing tobacco dependence, marijuana use, anxiety/depression. He was here last month for shortness of breath cough and congestion. He did undergo bronchoscopy with BAL anus found to have methicillin sensitive Staphylococcus aureus. He was treated and discharged home on 03/28/2022. He re-presented here to the emergency room early this morning with complaints of coughing up blood via his tracheostomy tube. Chest x-ray revealed no acute pulmonary process. White count 5.3. Hemoglobin 13.7. Platelets 149. Sodium 126. Potassium 4.1. Chloride 20. BUN 9. Creatinine 0.57. He is seen today in consultation in the emergency department. Currently sitting up on the stretcher. Awake and alert in no acute distress. He is maintaining good O2 saturations in the 90s on room air. He states he changes out his tracheostomy tube about every 3 months. There is evidence of small amount of dark blood noted. The patient is seen today 05/02/2022 in follow-up on the regular medical floor. He is currently resting comfortably in bed. Awake and alert in no acute distress.He is maintaining good O2 saturations in the 90s on room air. He's afebrile. Hemodynamically stable. No further episodes of hemoptysis. He is being nourished with TwoCalat 30 MLS per hour. He has 0.9 normal saline at 125 ML's per hour. His sodium has improved to 135 today. White count 12.6. Hemoglobin 11.6. Potassium 3.9. BUN 12. Creatinine 0.7. Troponins negative 2. He is continued on DuoNeb inhalations, IV Solu-Medrol, antibiotics in the form of Zosyn. Objective - Vital Signs Vital signs: Vital Signs Temp 97.8 F 05/02/22 07:44 Pulse 106 H 05/02/22 12:25 Resp 17 05/02/22 07:44 BP 132/81 05/02/22 07:44 Pulse Ox 98 05/02/22 07:44 FiO2 Intake & Output 05/01/22 05/02/22 05/02/22 18:59 06:59 18:59 Intake Total 1032 Output Total 675 Balance -675 1032 Weight 68.492 kg 68.492 kg Intake: Tube Feeding 1032 Output: Urine 675 Other: Voiding Method Urinal - Exam General Impression: 61-year-old male patient, alert and oriented x3, not in acute distress, cachexic, and the patient has an extensive surgical scar over his face with possibly a muscle flap. HEENT: Normocephalic atraumatic, extra-ocular movements intact, pupils equal and reactive to light bilaterally, mucous membranes moist, tracheostomy in place and this is a Shiley tracheostomy tube. Cardiovascular: Cardiac exam revealed the PMI to be normally situated and sized. The rhythm was regular and no extrasystoles were noted during several minutes of auscultation. The first and second heart sounds were normal and physiologic splitting of the second heart sound was noted. There were no murmurs, rubs, clicks, or gallops. Chest: Able to complete full sentences, no retractions, no tachypnea Abdomen: abdomen soft, non-tender, non-distended, no organomegaly, PEG tube is dry clean and intact Musculoskeletal: Pulses present and equal in all extremities, no peripheral edema Right lower extremity: Minimal pain with flexion at the right hip, skin over the right hip shows no trauma signs. Right leg is not shortened compared to the left Motor: no focal deficits noted Neurological: CN II-XII grossly intact, no focal motor or sensory deficits noted Skin: Intact with no visualized rashes Psych: Normal affect and mood - Labs CBC & Chem 7: 05/02/22 02:51 05/02/22 02:51 Labs: Abnormal Lab Results - Last 24 Hours (Table) 05/02/22 05/02/22 Range/Units 02:51 02:51 WBC 12.63 H (4.50-10.00) X 10*3/uL RBC 3.55 L (4.40-5.60) X 10*6/uL Hgb 11.6 L (13.0-17.0) g/dL Hct 35.5 L (39.6-50.0) % MCV 100.0 H (80.0-97.0) fL MCH 32.7 H (27.0-32.0) pg Immature Gran # 0.11 H (0.00-0.04) X 10*3/uL Neutrophils # 11.77 H (1.80-7.70) X 10*3/uL Lymphocytes # 0.41 L (0.90-5.00) X 10*3/uL Eosinophils # 0 L (0.04-0.35) X 10*3/uL Glucose 178 H (70-110) mg/dL Phosphorus 2.3 L (2.4-5.1) mg/dL Albumin/Globulin Ratio 1.52 L (1.60-3.17) g/dL Assessment and Plan Assessment: Hemoptysis suspect secondary tracheostomy, chest x-ray reveals no acute process Hyponatremia, currently 126. Continue saline at 125 ML's per hour Recent admission for hemoptysis secondary to MSSA sputum culture, status post bronchoscopy on 03/22/2022 with no signs of active bleeding Squamous cell carcinoma of the oral cavity postsurgical resection with reconstruction and post insertion of a tracheostomy and PEG tube for airway protection and swallowing. History of pulmonary nodules. Chronic back pain. History of ongoing tobacco use. PEG tube with enteral feeding for nutritional support History of Sacral decubitus ulcer, recovered COPD Seizure disorder secondary to alcohol withdrawal Gastric reflux disease. Plan: The patient was seen and evaluated Labs, and medications reviewed Cleared for discharge from the pulmonary standpoint To complete a course of Augmentin Follow-up in the office in 1-2 weeks' I have personally seen and examined the patient, performed the documentation and the assessment and plan as written. Number of minutes spent on the visit: 10.
--- NOTE | 2022-05-02 15:24 | P.DS ---
Providers Date of admission: 05/01/22 04:10 Expected date of discharge: 05/02/22 Attending physician: Phill Tan MD Consults: 05/01/22 04:09 Consult Physician Routine Consulting Provider: Dilia Diaz Consult Reason/Comments: hemoptysis Do you want consulting provider notified?: Yes 05/02/22 06:00 Consult Physician Urgent Consulting Provider: Gonzales Caballero Consult Reason/Comments: Elevated D. Dimer; Tachycardia Do you want consulting provider notified?: Yes, Notify in am Primary care physician: Fátima Velarde [facility] Course: Hemoptysis suspect secondary to tracheostomy, chest x-ray reveals no acute process Hyponatremia, resolved Recent admission for hemoptysis secondary to MSSA, status post bronchoscopy 03/22/2022 with no signs of active bleeding, cytology reporting negative for malignancy. Squamous cell carcinoma of the oral cavity postsurgical resection with reconstruction and post insertion of a tracheostomy and PEG tube History of pulmonary nodules. Chronic back pain. Gastroesophageal reflux disease PEG tube with enteral feeding for nutritional support. History of Sacral decubitus ulcer, recovered COPD Seizure disorder secondary to alcohol withdrawal Ongoing nicotine dependence CAD, multivessel Hospital course: This is 61-year-old gentleman with history of squamous cell see of the oral cavity status post surgery, chemoradiation with tracheostomy and PEG tube ,admitted with hemoptysis, hyponatremia and multiple other medical issues similar to recent admission. Maintained on nebulized bronchodilators, IV steroids, Zosyn. Significant clinical improvement. No further hemoptysis or purulent drainage from trach site. Sodium improved, 135. Left wrist within normal limits, renal function stable. Denies chest pain, palpitations or shortness of breath. Denies lightheadedness, dizziness or focal deficits. Significant clinical improvement. Patient will be discharged home today, in stable condition with guarded prognosis, pending final DC recommendations and clearance per pulmonary and cardiology. The impression and plan of care has been dictated as directed. : I performed a history and examination of this patient, discussed the same with the dictator. I agree with the dictator's note ,documented as a scribe. Any additional findings or plans will be noted. Patient Condition at Discharge: Stable Plan - Discharge Summary Discharge Rx Participant: Yes New Discharge Prescriptions: New Amoxic-Pot Clav 875-125Mg [Augmentin 875-125] 1 tab PEG/G-TUBE BID 10 Days #20 tab Continue Cyanocobalamin [Vitamin B-12] 500 mcg PEG/G-TUBE DAILY Midodrine [ProAmatine] 5 mg PEG/G-TUBE BID Baclofen [Lioresal] 10 mg PEG/G-TUBE TID Levothyroxine Sodium 25 mcg PEG/G-TUBE DAILY lamoTRIgine [LaMICtal] 25 mg PEG/G-TUBE BID Amitriptyline HCl [Elavil] 25 mg PEG/G-TUBE HS Ipratropium-Albuterol Nebulize [Duoneb 0.5 mg-3 mg/3 ml Soln] 3 ml INHALATION RT-Q6H PRN PRN Reason: Shortness Of Breath Sodium Chloride Tab 1 gm PEG/G-TUBE DAILY #30 tab Aspirin EC [Ecotrin Low Dose] 81 mg PEG/G-TUBE DAILY Sertraline [Zoloft] 25 mg PEG/G-TUBE DAILY busPIRone HCL 5 mg PEG/G-TUBE BID Prochlorperazine [Compazine] 10 mg PEG/G-TUBE DAILY PRN PRN Reason: Nausea Spironolactone [Aldactone] 25 mg PEG/G-TUBE DAILY #30 tab lisinopriL [Zestril] 2.5 mg PEG/G-TUBE DAILY #30 tab Metoprolol Tartrate [Lopressor] 50 mg PEG/G-TUBE DAILY #60 Discharge Medication List Cyanocobalamin [Vitamin B-12] 500 mcg PEG/G-TUBE DAILY 09/15/20 [History] Midodrine [ProAmatine] 5 mg PEG/G-TUBE BID 09/15/20 [History] Aspirin EC [Ecotrin Low Dose] 81 mg PEG/G-TUBE DAILY 02/08/21 [History] Amitriptyline HCl [Elavil] 25 mg PEG/G-TUBE HS 03/22/22 [History] Baclofen [Lioresal] 10 mg PEG/G-TUBE TID 03/22/22 [History] Ipratropium-Albuterol Nebulize [Duoneb 0.5 mg-3 mg/3 ml Soln] 3 ml INHALATION RT-Q6H PRN 03/22/22 [History] Levothyroxine Sodium 25 mcg PEG/G-TUBE DAILY 03/22/22 [History] Prochlorperazine [Compazine] 10 mg PEG/G-TUBE DAILY PRN 03/22/22 [History] Sertraline [Zoloft] 25 mg PEG/G-TUBE DAILY 03/22/22 [History] busPIRone HCL 5 mg PEG/G-TUBE BID 03/22/22 [History] lamoTRIgine [LaMICtal] 25 mg PEG/G-TUBE BID 03/22/22 [History] Metoprolol Tartrate [Lopressor] 50 mg PEG/G-TUBE DAILY #60 03/28/22 [Rx] Spironolactone [Aldactone] 25 mg PEG/G-TUBE DAILY #30 tab 03/28/22 [Rx] lisinopriL [Zestril] 2.5 mg PEG/G-TUBE DAILY #30 tab 03/28/22 [Rx] Amoxic-Pot Clav 875-125Mg [Augmentin 875-125] 1 tab PEG/G-TUBE BID 10 Days #20 tab 05/02/22 [Rx] Sodium Chloride Tab 1 gm PEG/G-TUBE DAILY #30 tab 05/02/22 [Rx] Follow up Appointment(s)/Referral(s): Phill Tan MD [STAFF PHYSICIAN] - 05/04/22 1:00 pm
[2022-05-03] MEDS ORDERED: METOPROLOL TARTRATE 50 MG TAB PO SCH (09:00)
== END 2022-05-02 15:10 | disposition home or self-care (01) | DRG 202 ==
LOC: EC 02:19 → 4SSUR 04:10
PROVIDERS: ADMIT Family Medicine; ATTEND Family Medicine
DX: J04.10 Acute tracheitis without obstruction (principal); E87.1 Hypo-osmolality and hyponatremia; J95.01 Hemorrhage from tracheostomy stoma; R04.2 Hemoptysis; F10.239 Alcohol dependence with withdrawal, unspecified; J45.901 Unspecified asthma with (acute) exacerbation; Z20.822 Contact with and (suspected) exposure to COVID-19; J44.9 Chronic obstructive pulmonary disease, unspecified; B95.61 Methicillin susceptible Staphylococcus aureus infection as the cause of diseases classified elsewhere; R00.0 Tachycardia, unspecified; F17.210 Nicotine dependence, cigarettes, uncomplicated; F32.A Depression, unspecified; F41.9 Anxiety disorder, unspecified; G40.909 Epilepsy, unspecified, not intractable, without status epilepticus; G89.29 Other chronic pain; I10 Essential (primary) hypertension; I25.10 Atherosclerotic heart disease of native coronary artery without angina pectoris; I25.2 Old myocardial infarction; I25.5 Ischemic cardiomyopathy; I95.89 Other hypotension; K21.9 Gastro-esophageal reflux disease without esophagitis; Z79.52 Long term (current) use of systemic steroids; Z79.82 Long term (current) use of aspirin; Z79.899 Other long term (current) drug therapy; Z85.810 Personal history of malignant neoplasm of tongue; Z92.21 Personal history of antineoplastic chemotherapy; Z92.3 Personal history of irradiation
CPT/HCPCS: 36415; 71045; 71275; 80053; 83735; 83880; 84100; 84443; 84484; 85025; 85379; 85610; 85730; 87635; 93005; 93970; 94640; 96361; 96365; 96366; 96375; 96376; 99285

== ENCOUNTER 2022-08-27 15:58 | Emergency (ER) | payer MEDICARE, OTHER ==
[2022-08-27 16:08] VITALS: RESP 18; TEMP 97.3
[2022-08-27] MEDS ORDERED: HYDROmorphone 0.5 MG/0.5 ML SYRINGE IVP STA (16:37)
[2022-08-27] MEDS ORDERED: ONDANSETRON 4 MG/2 ML VIAL IVP STA (16:37)
--- NOTE | 2022-08-27 16:44 | ED ---
General Adult HPI - General Source: patient, EMS, RN notes reviewed Mode of arrival: EMS <Grecia Dudley - Last Filed: 08/27/22 18:48> <Surjit Crespo - Last Filed: 08/27/22 19:24> - General Chief complaint: Extremity Injury, Lower Stated complaint: Fall, L. Leg Injury Time Seen by Provider: 08/27/22 16:16 - History of Present Illness Initial comments: 62 year old male presenting to the emergency department with a chief c omplete of fall. He reports he was walking with his walker and fell backwards. He is complaining of L knee pain. He denies hitting his head, LOC, anticoagulant use. He denies dizziness, lightheadedness, headache, vision changes, chest pain, palpitations, abdominal pain, nausea, vomiting. He does complain of having diarrhea recently. After exiting the room, RN was on the phone with patients . She reports the patient had an episode of altered mental status that lasted about 15 minutes before his fall. She reports he was letting the dogs out 3 times in 10 minutes which is abnormal. (Grecia Dudley) - Related Data Home Medications Medication Instructions Recorded Confirmed Cyanocobalamin [Vitamin B-12] 500 mcg PEG/G-TUBE DAILY 09/15/20 08/27/22 Aspirin EC [Ecotrin Low Dose] 81 mg PEG/G-TUBE DAILY 02/08/21 08/27/22 Amitriptyline HCl [Elavil] 25 mg PEG/G-TUBE HS 03/22/22 08/27/22 Baclofen [Lioresal] 10 mg PEG/G-TUBE TID 03/22/22 08/27/22 Ipratropium-Albuterol Nebulize 3 ml INHALATION RT-Q6H PRN 03/22/22 08/27/22 [Duoneb 0.5 mg-3 mg/3 ml Soln] Levothyroxine Sodium 25 mcg PEG/G-TUBE DAILY 03/22/22 08/27/22 Sertraline [Zoloft] 25 mg PEG/G-TUBE DAILY 03/22/22 08/27/22 busPIRone HCL 5 mg PEG/G-TUBE BID 03/22/22 08/27/22 lamoTRIgine [LaMICtal] 25 mg PEG/G-TUBE BID 03/22/22 08/27/22 Metoprolol Succinate [Toprol XL] 25 mg PEG/G-TUBE BID 08/27/22 08/27/22 Pantoprazole Sodium [Protonix] 20 mg PEG/G-TUBE DAILY 08/27/22 08/27/22 Thiamine [Vitamin B-1] 100 mg PEG/G-TUBE DAILY 08/27/22 08/27/22 Previous Rx's Medication Instructions Recorded Spironolactone [Aldactone] 25 mg PEG/G-TUBE DAILY #30 tab 03/28/22 lisinopriL [Zestril] 2.5 mg PEG/G-TUBE DAILY #30 tab 03/28/22 Sodium Chloride Tab 1 gm PEG/G-TUBE DAILY #30 tab 05/02/22 Allergies Allergy/AdvReac Type Severity Reaction Status Date / Time No Known Allergies Allergy Verified 08/27/22 18:36 Review of Systems ROS Other: All systems not noted in ROS Statement are negative. <Grecia Dudley - Last Filed: 08/27/22 18:48> ROS Other: All systems not noted in ROS Statement are negative. <Surjit Crespo - Last Filed: 08/27/22 19:24> ROS Statement: Those systems with pertinent positive or pertinent negative responses have been documented in the HPI. Past Medical History Past Medical History: Cancer, COPD, GERD/Reflux, Myocardial Infarction (ME), Pneumonia, Seizure Disorder Additional Past Medical History / Comment(s): 07/30/20 fall with impacted R hip fracture/tracheal bronchitis, hemoptysis, pulmonary nodules. 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 Last chemo/radiation in 2017. Last Myocardial Infarction Date:: 2014 History of Any Multi-Drug Resistant Organisms: None Reported Past Surgical History: Heart Catheterization Additional Past Surgical History / Comment(s): Oral surgery with resection floor of mouth/tongue/mandible and bilateral neck resection with skin graft taken from L upper arm at [facility], tracheostomy, peg tube Past Anesthesia/Blood Transfusion Reactions: No Reported Reaction Additional Past Anesthesia/Blood Transfusion Reaction / Comment(s): adopted - no family hx Past Psychological History: Anxiety, Depression Smoking Status: Current every day smoker Past Alcohol Use History: Daily, Heavy Past Drug Use History: Marijuana - Past Family History Mother Family Medical History: Unable to Obtain Additional Family Medical History / Comment(s): pt is adopted <Grecia Dudley - Last Filed: 08/27/22 18:48> General Exam General appearance: alert, in no apparent distress Head exam: Present: atraumatic, normocephalic, normal inspection Eye exam: Present: normal appearance, PERRL, EOMI. Absent: scleral icterus, conjunctival injection, periorbital swelling ENT exam: Present: normal exam, mucous membranes moist Neck exam: Present: normal inspection. Absent: tenderness, meningismus, lymphadenopathy Respiratory exam: Present: normal lung sounds bilaterally, other (tracheostomy present ). Absent: respiratory distress, wheezes, rales, rhonchi, stridor Cardiovascular Exam: Present: regular rate, normal rhythm, normal heart sounds. Absent: systolic murmur, diastolic murmur, rubs, gallop, clicks GI/Abdominal exam: Present: soft, normal bowel sounds. Absent: distended, tenderness, guarding, rebound, rigid Extremities exam: Present: normal inspection, full ROM, normal capillary refill. Absent: tenderness, pedal edema, joint swelling, calf tenderness Left Hip exam: Absent: tenderness Upper Leg exam: Present: normal inspection Knee exam: Present: tenderness, swelling (Medial aspect of knee joint with swelling and tenderness. Limited ROM secondary to pain. No crepitus, 2+ PT/DT pulses, distal NVI ), deformity. Absent: abrasion, laceration, ecchymosis, crepitus, erythema Back exam: Present: normal inspection Neurological exam: Present: alert, oriented X3, CN II-XII intact Psychiatric exam: Present: normal affect, normal mood Skin exam: Present: warm, dry, intact, normal color. Absent: rash <RoxevensGrecia diaz - Last Filed: 08/27/22 18:48> Course Vital Signs 08/27/22 08/27/22 08/27/22 16:00 18:56 19:07 Temperature 97.3 F L Pulse Rate 89 95 Respiratory 18 18 Rate Blood Pressure 126/96 101/67 O2 Sat by Pulse 99 93 L 92 L Oximetry Medical Decision Making - Lab Data Result diagrams: 08/27/22 16:59 08/27/22 16:59 <Grecia Dudley - Last Filed: 08/27/22 18:48> - Lab Data Result diagrams: 08/27/22 16:59 08/27/22 16:59 <Surjit Crespo - Last Filed: 08/27/22 19:24> - Medical Decision Making Case discussed with Dr. Padilla who requests patient be transferred to [facility] due to the patient be more proximal that he feels comfortable fixing. Case discussed with Dr. Al whose agreeable to transfer. Spoke with trauma surgeon Dr. Arauz who is also agreeable for transfer. Was pt. sent in by a medical professional or institution (, PA, INSURANCE FOLLOW UP REPRESENTATIVE, urgent ca re, hospital, or retirement...) When possible be specific @ -No Did you speak to anyone other than the patient for history (EMS, parent, family, police, friend...)? What history was obtained from this source @ -EMS Did you review nursing and triage notes (agree or disagree)? Why? @ -I reviewed and agree with nursing and triage notes Were old charts reviewed (outside hosp., previous admission, EMS record, old EKG, old radiological studies, urgent care reports/EKG's, retirement records)? Report findings @ -Discharge summary and pulmonary consultation from last year was reviewed Differential Diagnosis (chest pain, altered mental status, abdominal pain women, abdominal pain men, vaginal bleeding, weakness, fever, dyspnea, syncope, hea dache, dizziness, GI bleed, back pain, seizure, CVA, palpatations, mental health)? @ -Fall, syncope EKG interpreted by me (3pts min.). @ -As above X-rays interpreted by me (1pt min.). @ -X-rays reviewed. Patient does have a proximal nondisplaced impacted tib-fib fracture CT interpreted by me (1pt min.). @ -Unremarkable U/S interpreted by me (1pt. min.). @ -None done What testing was considered but not performed or refused? (CT, X-rays, U/S, labs)? Why? @ -None What meds were considered but not given or refused? Why? @ -None Did you discuss the management of the patient with other professionals (professionals i.e. DrAbad, PA, INSURANCE FOLLOW UP REPRESENTATIVE, lab, RT, psych nurse, social services technician, toll gate tender, teacher, district resource officer, rehabilitation case coordinator)? Give summary @ -Spoke with Nery Jo, Dr. Al and Dr. Arauz Was smoking cessation discussed for >3mins.? @ -No Was critical care preformed (if so, how long)? @ -No Were there social determinants of health that impacted care today? How? (Homelessness, low income, unemployed, alcoholism, drug addiction, transportation, low edu. Level, literacy, decrease access to med. care, custodial, rehab)? @ -Poor social situation Was there de-escalation of care discussed even if they declined (Discuss DNR or withdrawal of care, Hospice)? DNR status @ -No What co-morbidities impacted this encounter? (DM, HTN, Smoking, COPD, CAD, Cancer, CVA, ARF, Chemo, Hep., AIDS, mental health diagnosis, sleep apnea, morbid obesity)? @ -Squamous cell cancer Was patient admitted / discharged? Hospital course, mention meds given and route, prescriptions, significant lab abnormalities, going to OR and other pertinent info. @ -see above Undiagnosed new problem with uncertain prognosis? @ -Tib-fib fracture of the left lower extremity Drug Therapy requiring intensive monitoring for toxicity (Heparin, Nitro, Insulin, Cardizem)? @ -No Were any procedures done? @ -No Diagnosis/symptom? @ -Tib-fib fracture, fall Acute, or Chronic, or Acute on Chronic? @ -Acute Uncomplicated (without systemic symptoms) or Complicated (systemic symptoms)? @ -default Side effects of treatment? @ -No Exacerbation, Progression, or Severe Exacerbation? @ -No Poses a threat to life or bodily function? How? (Chest pain, USA, ME, pneumonia, PE, COPD, DKA, ARF, appy, cholecystitis, CVA, Diverticulitis, Homicidal, Suicidal, threat to staff... and all critical care pts) @ -Yes, lower extremity function (Surjit Crespo) - Lab Data Lab Results 08/27/22 08/27/22 08/27/22 Range/Units 16:59 16:59 16:59 WBC 9.0 (3.8-10.6) k/uL RBC 2.98 L (4.30-5.90) m/uL Hgb 8.7 L (13.0-17.5) gm/dL Hct 27.1 L (39.0-53.0) % MCV 91.2 (80.0-100.0) fL MCH 29.2 (25.0-35.0) pg MCHC 32.0 (31.0-37.0) g/dL RDW 14.8 (11.5-15.5) % Plt Count 91 L (150-450) k/uL MPV 10.3 Neutrophils % 83 % Lymphocytes % 6 % Monocytes % 7 % Eosinophils % 1 % Basophils % 1 % Neutrophils # 7.5 (1.3-7.7) k/uL Lymphocytes # 0.5 L (1.0-4.8) k/uL Monocytes # 0.6 (0-1.0) k/uL Eosinophils # 0.1 (0-0.7) k/uL Basophils # 0.1 (0-0.2) k/uL Hypochromasia Marked Poikilocytosis Moderate PT (9.0-12.0) sec INR (<1.2) Sodium 120 L (137-145) mmol/L Potassium 4.9 (3.5-5.1) mmol/L Chloride 88 L (98-107) mmol/L Carbon Dioxide 23 (22-30) mmol/L Anion Gap 9 mmol/L BUN 9 (9-20) mg/dL Creatinine 0.70 (0.66-1.25) mg/dL Est GFR (CKD-EPI)AfAm >90 (>60 ml/min/1.73 sqM) Est GFR (CKD-EPI)NonAf >90 (>60 ml/min/1.73 sqM) Glucose 95 (74-99) mg/dL Calcium 8.3 L (8.4-10.2) mg/dL Magnesium 2.0 (1.6-2.3) mg/dL Troponin I <0.012 (0.000-0.034) ng/mL Influenza Type A (PCR) (Not Detectd) Influenza Type B (PCR) (Not Detectd) RSV (PCR) (Not Detectd) SARS-CoV-2 (PCR) (Not Detectd) 08/27/22 08/27/22 Range/Units 16:59 16:59 WBC (3.8-10.6) k/uL RBC (4.30-5.90) m/uL Hgb (13.0-17.5) gm/dL Hct (39.0-53.0) % MCV (80.0-100.0) fL MCH (25.0-35.0) pg MCHC (31.0-37.0) g/dL RDW (11.5-15.5) % Plt Count (150-450) k/uL MPV Neutrophils % % Lymphocytes % % Monocytes % % Eosinophils % % Basophils % % Neutrophils # (1.3-7.7) k/uL Lymphocytes # (1.0-4.8) k/uL Monocytes # (0-1.0) k/uL Eosinophils # (0-0.7) k/uL Basophils # (0-0.2) k/uL Hypochromasia Poikilocytosis PT 10.3 (9.0-12.0) sec INR 1.0 (<1.2) Sodium (137-145) mmol/L Potassium (3.5-5.1) mmol/L Chloride (98-107) mmol/L Carbon Dioxide (22-30) mmol/L Anion Gap mmol/L BUN (9-20) mg/dL Creatinine (0.66-1.25) mg/dL Est GFR (CKD-EPI)AfAm (>60 ml/min/1.73 sqM) Est GFR (CKD-EPI)NonAf (>60 ml/min/1.73 sqM) Glucose (74-99) mg/dL Calcium (8.4-10.2) mg/dL Magnesium (1.6-2.3) mg/dL Troponin I (0.000-0.034) ng/mL Influenza Type A (PCR) Not Detected (Not Detectd) Influenza Type B (PCR) Not Detected (Not Detectd) RSV (PCR) Not Detected (Not Detectd) SARS-CoV-2 (PCR) Not Detected (Not Detectd) Disposition <Grecia Dudley - Last Filed: 08/27/22 18:48> Time of Disposition: 19:24 - Out of Hospital Transfer - Req. Specs Out of Hospital Transfer - Requested Specifics: Other Emergency Center ([facility]) <Surjit Crespo - Last Filed: 08/27/22 19:24> Clinical Impression: Hyponatremia, Tibia/fibula fracture Disposition: OTHER INSTITUTION NOT DEFINED Condition: Serious Referrals: Fátima Velarde DO [Primary Care Provider] - 1-2 days
[2022-08-27 17:29] LABS: Basophils # (A) 0.1 k/uL (0-0.2); Basophils % (A) 1 %; Eosinophils # (A) 0.1 k/uL (0-0.7); Eosinophils % (A) 1 %; HCT 27.1 % (39.0-53.0); HGB 8.7 gm/dL (13.0-17.5); Hypochromasia Marked; Lymphocytes # (A) 0.5 k/uL (1.0-4.8); Lymphocytes % (A) 6 %; MCH 29.2 pg (25.0-35.0); MCV 91.2 fL (80.0-100.0); Mean Platelet Volume 10.3; Monocytes # (A) 0.6 k/uL (0-1.0); Monocytes % (A) 7 %; Neutrophils # (A) 7.5 k/uL (1.3-7.7); Neutrophils % (A) 83 %; Poikilocytosis Moderate; RBC 2.98 m/uL (4.30-5.90); RDW 14.8 % (11.5-15.5)
[2022-08-27 17:46] LABS: Prothrombin Time 10.3 sec (9.0-12.0)
[2022-08-27 17:57] LABS: Platelet Count 91 k/uL (150-450)
[2022-08-27 18:07] LABS: African American GFR (CKD) >90 (>60 ml/min/1.73 sqM); Anion Gap 9 mmol/L; Blood Urea Nitrogen 9 mg/dL (9-20); Calcium 8.3 mg/dL (8.4-10.2); Carbon Dioxide 23 mmol/L (22-30); Chloride 88 mmol/L (98-107); Glucose 95 mg/dL (74-99); Non-African American GFR(CKD) >90 (>60 ml/min/1.73 sqM); Potassium 4.9 mmol/L (3.5-5.1); Sodium 120 mmol/L (137-145)
--- NOTE | 2022-08-27 18:10 | XR ---
EXAMINATION TYPE: XR tibia fibula LT DATE OF EXAM: 08/27/2022 COMPARISON: NONE HISTORY: Pain TECHNIQUE: 4 views FINDINGS: There is a comminuted transverse fractures of the proximal tibial and fibular metaphyses. N o significant displacement. The ankle mortise is anatomic. There is vascular calcification. IMPRESSION: Acute nondisplaced fractures of the proximal tibia and fibula metaphyses.
--- NOTE | 2022-08-27 18:13 | XR ---
EXAMINATION TYPE: XR knee complete LT DATE OF EXAM: 08/27/2022 COMPARISON: NONE HISTORY: Pain TECHNIQUE: 3 view FINDINGS: There is acute slightly impacted comminuted transverse fracture proximal tibial metaphysis. There is adjacent nondisplaced slightly impacted fibula fracture. No joint effusion. Patella is inta ct. Knee joint spaces are fairly normal. There is moderate vascular calcification. IMPRESSION: Acute fractures of the proximal tibia and fibula metaphyses with slight impaction.
--- NOTE | 2022-08-27 18:14 | XR ---
EXAMINATION TYPE: XR femur LT DATE OF EXAM: 08/27/2022 COMPARISON: NONE HISTORY: Pain TECHNIQUE: 4 views FINDINGS: There is vascular calcification. Hip joint and knee joint appear anatomic. No evidence of f emoral fracture. Acetabulum is intact. IMPRESSION: No acute abnormality of the left femur.
--- NOTE | 2022-08-27 18:17 | CT ---
EXAMINATION TYPE: CT brain wo con DATE OF EXAM: 08/27/2022 COMPARISON: 02/08/2021 HISTORY: Fall. pt poor historian CT DLP: 1129.4 mGycm Automated exposure control for dose reduction was used. Images of the brain obtained with no contrast. Ventricles have normal size. There is no mass effect or midline shift. No sign of intracranial hemorr abiodun. The calvarium is intact. There is normal aeration of the mastoid sinuses. IMPRESSION: Negative CT scan of the brain. No change.
[2022-08-27] MEDS ORDERED: SODIUM CHLORIDE 0.9% 1,000 ML IV ONE (18:42)
[2022-08-27] MEDS ORDERED: SODIUM CHLORIDE 0.9% 1,000 ML IV STA (18:43)
[2022-08-27 21:20] VITALS: BP 127/80; PULSE 105
== END 2022-08-27 21:22 | disposition other institution (70) ==
LOC: EC 15:58
DX: S82.202A Unspecified fracture of shaft of left tibia, initial encounter for closed fracture (principal); E87.1 Hypo-osmolality and hyponatremia; J44.9 Chronic obstructive pulmonary disease, unspecified; K21.9 Gastro-esophageal reflux disease without esophagitis; I25.2 Old myocardial infarction; G40.909 Epilepsy, unspecified, not intractable, without status epilepticus; F41.9 Anxiety disorder, unspecified; F32.A Depression, unspecified; F17.200 Nicotine dependence, unspecified, uncomplicated; F12.90 Cannabis use, unspecified, uncomplicated; Z79.82 Long term (current) use of aspirin; Z79.899 Other long term (current) drug therapy; W01.0XXA Fall on same level from slipping, tripping and stumbling without subsequent striking against object, initial encounter; Z20.822 Contact with and (suspected) exposure to COVID-19
CPT/HCPCS: 36415; 93005; 80048; 83735; 84484; 85025; 85610; 87636; 73552; 73590; 73562; 70450; 99285; 96374; 96375; 96361; J2405; J1170

== ENCOUNTER 2023-02-01 08:11 | Inpatient (IN) | payer MEDICARE, OTHER ==
[2023-02-01] MEDS ORDERED: SODIUM CHLORIDE 0.9% 1,000 ML IV STA ×2 (08:25→09:25)
[2023-02-01] MEDS ORDERED: PANTOPRAZOLE 40 MG/10 ML VIAL IVP STA (08:25)
--- NOTE | 2023-02-01 08:39 | ED ---
General Adult HPI - General Chief complaint: GI Bleed Stated complaint: Spitting up Blood Time Seen by Provider: 02/01/23 08:19 Source: patient, RN notes reviewed, old records reviewed Mode of arrival: wheelchair Limitations: language barrier - History of Present Illness Initial comments: Patient is a 62-year-old male who presents emergency Department complaining of hemoptysis. Has been having cough productive of bloody sputum since approximately 3 AM this morning. So little bit of blood in his PEG tube ablates it is because he is also coughing it up into his mouth and then swallowing it. States it is a cough, not nausea not emesis episodes. No abdominal pain. No diarrhea. Has history of throat cancer. Tracheostomy is old. Does have trach swats every few months and last one was a few months back. No recent trach drops. This has occurred previously and was diagnosed with tracheal bronchitis. He is not on blood thinners other than a baby aspirin. States it was not improving which is why presents for further evaluation at this time. Denies any fevers or chills or cough. Denies any history of blood clots. Denies any other acute complaints at this time. Presents for further evaluation at this time. - Related Data Home Medications Medication Instructions Recorded Confirmed Cyanocobalamin [Vitamin B-12] 500 mcg PEG/G-TUBE DAILY 09/15/20 08/27/22 Aspirin EC [Ecotrin Low Dose] 81 mg PEG/G-TUBE DAILY 02/08/21 08/27/22 Amitriptyline HCl [Elavil] 25 mg PEG/G-TUBE HS 03/22/22 08/27/22 Baclofen [Lioresal] 10 mg PEG/G-TUBE TID 03/22/22 08/27/22 Ipratropium-Albuterol Nebulize 3 ml INHALATION RT-Q6H PRN 03/22/22 08/27/22 [Duoneb 0.5 mg-3 mg/3 ml Soln] Levothyroxine Sodium 25 mcg PEG/G-TUBE DAILY 03/22/22 08/27/22 Sertraline [Zoloft] 25 mg PEG/G-TUBE DAILY 03/22/22 08/27/22 busPIRone HCL 5 mg PEG/G-TUBE BID 03/22/22 08/27/22 lamoTRIgine [LaMICtal] 25 mg PEG/G-TUBE BID 03/22/22 08/27/22 Metoprolol Succinate [Toprol XL] 25 mg PEG/G-TUBE BID 08/27/22 08/27/22 Pantoprazole Sodium [Protonix] 20 mg PEG/G-TUBE DAILY 08/27/22 08/27/22 Thiamine [Vitamin B-1] 100 mg PEG/G-TUBE DAILY 08/27/22 08/27/22 Midodrine [ProAmatine] 5 mg PEG/G-TUBE PC-BID 02/01/23 02/01/23 traMADol HCl [Ultram] 50 mg PEG/G-TUBE Q6HR PRN 02/01/23 02/01/23 Previous Rx's Medication Instructions Recorded Spironolactone [Aldactone] 25 mg PEG/G-TUBE DAILY #30 tab 03/28/22 lisinopriL [Zestril] 2.5 mg PEG/G-TUBE DAILY #30 tab 03/28/22 Sodium Chloride Tab 1 gm PEG/G-TUBE DAILY #30 tab 05/02/22 Allergies Allergy/AdvReac Type Severity Reaction Status Date / Time No Known Allergies Allergy Verified 02/01/23 10:21 Review of Systems ROS Statement: Those systems with pertinent positive or pertinent negative responses have been documented in the HPI. Review of Systems: CONST: Denies fever EYES: Denies blurry vision ENT: Denies nasal congestion C/V: Denies Chest pain RESP: Endorses hemoptysis GI: Denies abdominal pain : Denies dysuria SKIN: Denies rash. MSK: Denies joint pain. NEURO: Denies headache ROS Other: All systems not noted in ROS Statement are negative. Past Medical History Past Medical History: Cancer, COPD, GERD/Reflux, Myocardial Infarction (ND), Pneumonia, Seizure Disorder Additional Past Medical History / Comment(s): 07/30/20 fall with impacted R hip fracture/tracheal bronchitis, hemoptysis, pulmonary nodules. 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 Last chemo/radiation in 2017. Last Myocardial Infarction Date:: 2014 History of Any Multi-Drug Resistant Organisms: None Reported Past Surgical History: Heart Catheterization Additional Past Surgical History / Comment(s): Oral surgery with resection floor of mouth/tongue/mandible and bilateral neck resection with skin graft taken from L upper arm at [facility], tracheostomy, peg tube Past Anesthesia/Blood Transfusion Reactions: No Reported Reaction Additional Past Anesthesia/Blood Transfusion Reaction / Comment(s): adopted - no family hx Past Psychological History: Anxiety, Depression Smoking Status: Current every day smoker Past Alcohol Use History: Daily, Heavy Past Drug Use History: Marijuana - Past Family History Mother Family Medical History: Unable to Obtain Additional Family Medical History / Comment(s): pt is adopted General Exam - General Exam Comments Initial Comments: General: Appears in no acute respiratory distress the patient does have an episode of hemoptysis in front of me through his tracheostomy HEAD: Normal with no signs of head trauma. EYES: PERRLA, EOMI, conjunctiva normal, no discharge. ENT: Hearing grossly intact, normal oropharynx. Patient does have blood in his oropharynx which is likely secondary to hemoptysis. Dried blood around the tracheostomy tube. Patient does have an episode of hemoptysis in front of me. Small episode of hemoptysis. RESPIRATORY: Clear breath sounds bilaterally. No wheezes, rales, or rhonchi. C/V: Tachycardic with regular rhythm. S1 and S2 auscultated. Peripheral pulses 2+ and intact throughout. ABD: Abd is soft, nontender, nondistended EXT: Normal range of motion, no obvious deformity SKIN: No rashes or lesions observed on exposed skin. NEURO: Alert and oriented 4. Limitations: language barrier Course Vital Signs 02/01/23 02/01/23 02/01/23 08:13 08:23 09:19 Temperature 97.2 F L Pulse Rate 133 H 123 H Respiratory 24 22 21 Rate Blood Pressure 124/67 130/81 O2 Sat by Pulse 97 98 Oximetry Medical Decision Making - Medical Decision Making Was pt. sent in by a medical professional or institution (GILBERTO Whitman, TRANSPORTATION ASSOCIATE, urgent care, hospital, or snf...) When possible be specific @ -No Did you speak to anyone other than the patient for history (EMS, parent, family, police, friend...)? What history was obtained from this source @ -No Did you review nursing and triage notes (agree or disagree)? Why? @ -I reviewed and agree with nursing and triage notes Were old charts reviewed (outside hosp., previous admission, EMS record, old EKG, old radiological studies, urgent care reports/EKG's, snf records)? Report findings @ -Old charts reviewed from April 2022 when this last occurred. Similar episodes. Differential Diagnosis (chest pain, altered mental status, abdominal pain women, abdominal pain men, vaginal bleeding, weakness, fever, dyspnea, syncope, headache, dizziness, GI bleed, back pain, seizure, CVA, palpatations, mental health, musculoskeletal)? @ -Differential Dyspnea: Coronary syndrome, arrhythmia, tamponade, asthma, COPD, pulmonary embolism, pneumonia, pneumothorax, pulmonary effusion, anaphylaxis, diabetic ketoacidosis, flailed chest, pulmonary contusion, diaphragmatic rupture, anemia, neuromuscular, this is not meant to be an all-inclusive list. EKG interpreted by me (3pts min.). @ -As above X-rays interpreted by me (1pt min.). @ -Chest x-ray reveals no obvious acute cardio calling process, infiltrate. CT interpreted by me (1pt min.). @ -None done U/S interpreted by me (1pt. min.). @ -Bilateral lower extremity ultrasound negative for DVTs per radiology. What testing was considered but not performed or refused? (CT, X-rays, U/S, labs)? Why? @ -None What meds were considered but not given or refused? Why? @ -None Did you discuss the management of the patient with other professionals (professionals i.e. , PA, TRANSPORTATION ASSOCIATE, lab, RT, psych nurse, social sciences research scientist, cross tie tram loader, teacher, aoc director combat operations officer, case packer and sealer)? Give summary @ -I did speak with Dr. Mitchell of pulmonology at 0850 who is familiar with the patient. Was in agreement with the workup. He will evaluate the patient in trauma bay 2 in the emergency department. He started the patient on steroids, antibiotics. Discussed CT imaging and is in agreement with holding it for now. We'll continue to monitor the patient. Requested patient be admitted to stepdown. I also spoke with the admitting physician, Dr. Tan who accepted the patient. Was smoking cessation discussed for >3mins.? @ -No Was critical care preformed (if so, how long)? @ -yes, 35 minutes Were there social determinants of health that impacted care today? How? (Homelessness, low income, unemployed, alcoholism, drug addiction, transportat ion, low edu. Level, literacy, decrease access to med. care, intermediate, rehab)? @ -No Was there de-escalation of care discussed even if they declined (Discuss DNR or withdrawal of care, Hospice)? DNR status @ -No What co-morbidities impacted this encounter? (DM, HTN, Smoking, COPD, CAD, Cancer, CVA, ARF, Chemo, Hep., AIDS, mental health diagnosis, sleep apnea, morbid obesity)? @ -None Was patient admitted / discharged? Hospital course, mention meds given and route, prescriptions, significant lab abnormalities, going to OR and other pertinent info. @ -Based on the patient's presentation and physical exam, he has a history of a chronic tracheostomy secondary to oral cancer presenting with hemoptysis. This has occurred previously. Not on blood thinners. He is hemodynamically stable but tachycardic at this time. No signs of respiratory distress other than the hemoptysis. No hypoxia. History previously diagnosed with tracheal bronchitis on last admission for this similar complaint last year. Presents for further evaluation. We will obtain broad workup, including cardiopulmonary labs, CT chest for PE, as well as 1 view portable chest x-ray. Type and screen will be sent. Consult for pulmonology will be placed. Patient will be admitted to the hospital. He will receive IV fluids as well as IV Protonix at this time. EKG showed no signs of acute ischemia. Chest x-ray shows no obvious acute cardio pulmonary process. Patient did not tolerate CT imaging is he was unable to lay down without significant coughing. This will be held at this time. Labs are remarkable for lactic acidosis of 2.7 likely secondary to dehydration and the underlying pathology. Patient has mild hyponatremia and hypochloremia at 1:30 and 91. D-dimer is chronically elevated at 1.31. Mild leukocytosis. Hemoglobin within normal limits. Coags within normal limits. Dr. Mitchell presented at bedside in the emergency department, and started the patient on antibiotics as well as steroids. We discussed the CT imaging and he agrees that we do not believe it is urgent at this time therefore I will cancel it. I will obtain bilateral lower extremity venous duplex Dopplers to rule out DVT with the elevated d-dimer but this is likely chronically elevated for the patient. He'll be admitted to stepdown at Dr. Mitchell's request., does not meet ICU criteria at this time. Patient will likely have bronchoscopy later this week. I updated the patient. He is resting comfortably. Saturating well. No respiratory distress. He was in agreement this plan. We will continue IV fluid hydration in addition to the above plan. I spoke with the admitting physician, Dr. Tan who accepted the patient was in agreement this plan. Patient admitted in serious condition. Bilateral lower extremity DVT ultrasounds is negative for DVT. Undiagnosed new problem with uncertain prognosis? @ -No Drug Therapy requiring intensive monitoring for toxicity (Heparin, Nitro, Insulin, Cardizem)? @ -No Were any procedures done? @ -No Diagnosis/symptom? @ -Hemoptysis, tracheostomy dependent Acute, or Chronic, or Acute on Chronic? @ -Acute on chronic Uncomplicated (without systemic symptoms) or Complicated (systemic symptoms)? @ -Complicated Side effects of treatment? @ -none Exacerbation, Progression, or Severe Exacerbation] @ -no Poses a threat to life or bodily function? @ -Yes - Lab Data Result diagrams: 02/01/23 08:30 02/01/23 08:30 Lab Results 02/01/23 02/01/23 02/01/23 Range/Units 08:30 08:30 08:30 WBC 11.0 H (3.8-10.6) k/uL RBC 4.66 (4.30-5.90) m/uL Hgb 14.3 (13.0-17.5) gm/dL Hct 43.0 (39.0-53.0) % MCV 92.3 (80.0-100.0) fL MCH 30.8 (25.0-35.0) pg MCHC 33.4 (31.0-37.0) g/dL RDW 14.3 (11.5-15.5) % Plt Count 82 L (150-450) k/uL MPV 9.2 Neutrophils % 81 % Lymphocytes % 10 % Monocytes % 6 % Eosinophils % 2 % Basophils % 1 % Neutrophils # 8.9 H (1.3-7.7) k/uL Lymphocytes # 1.1 (1.0-4.8) k/uL Monocytes # 0.6 (0-1.0) k/uL Eosinophils # 0.2 (0-0.7) k/uL Basophils # 0.1 (0-0.2) k/uL Manual Slide Review Performed RBC Morphology Normal PT 10.5 (9.0-12.0) sec INR 1.0 (<1.2) APTT 24.6 (22.0-30.0) sec D-Dimer 1.31 H (<0.60) mg/L FEU Sodium 130 L (137-145) mmol/L Potassium 4.2 (3.5-5.1) mmol/L Chloride 91 L (98-107) mmol/L Carbon Dioxide 27 (22-30) mmol/L Anion Gap 12 mmol/L BUN 18 (9-20) mg/dL Creatinine 0.60 L (0.66-1.25) mg/dL Est GFR (CKD-EPI)AfAm >90 (>60 ml/min/1.73 sqM) Est GFR (CKD-EPI)NonAf >90 (>60 ml/min/1.73 sqM) Glucose 90 (74-99) mg/dL Plasma Lactic Acid Turner (0.7-2.0) mmol/L Calcium 9.3 (8.4-10.2) mg/dL Magnesium 1.9 (1.6-2.3) mg/dL Total Bilirubin 0.4 (0.2-1.3) mg/dL AST 35 (17-59) U/L ALT 37 (4-49) U/L Alkaline Phosphatase 89 (38-126) U/L Troponin I (0.000-0.034) ng/mL Total Protein 8.4 H (6.3-8.2) g/dL Albumin 4.6 (3.5-5.0) g/dL Blood Type Blood Type Recheck Bld Type Recheck Status Antibody Screen Spec Expiration Date 02/01/23 02/01/23 02/01/23 Range/Units 08:30 08:30 08:42 WBC (3.8-10.6) k/uL RBC (4.30-5.90) m/uL Hgb (13.0-17.5) gm/dL Hct (39.0-53.0) % MCV (80.0-100.0) fL MCH (25.0-35.0) pg MCHC (31.0-37.0) g/dL RDW (11.5-15.5) % Plt Count (150-450) k/uL MPV Neutrophils % % Lymphocytes % % Monocytes % % Eosinophils % % Basophils % % Neutrophils # (1.3-7.7) k/uL Lymphocytes # (1.0-4.8) k/uL Monocytes # (0-1.0) k/uL Eosinophils # (0-0.7) k/uL Basophils # (0-0.2) k/uL Manual Slide Review RBC Morphology PT (9.0-12.0) sec INR (<1.2) APTT (22.0-30.0) sec D-Dimer (<0.60) mg/L FEU Sodium (137-145) mmol/L Potassium (3.5-5.1) mmol/L Chloride (98-107) mmol/L Carbon Dioxide (22-30) mmol/L Anion Gap mmol/L BUN (9-20) mg/dL Creatinine (0.66-1.25) mg/dL Est GFR (CKD-EPI)AfAm (>60 ml/min/1.73 sqM) Est GFR (CKD-EPI)NonAf (>60 ml/min/1.73 sqM) Glucose (74-99) mg/dL Plasma Lactic Acid Turner 2.7 H* (0.7-2.0) mmol/L Calcium (8.4-10.2) mg/dL Magnesium (1.6-2.3) mg/dL Total Bilirubin (0.2-1.3) mg/dL AST (17-59) U/L ALT (4-49) U/L Alkaline Phosphatase (38-126) U/L Troponin I <0.012 (0.000-0.034) ng/mL Total Protein (6.3-8.2) g/dL Albumin (3.5-5.0) g/dL Blood Type O Positive Blood Type Recheck O Pos Bld Type Recheck Status No Antibody Screen NEGATIVE Spec Expiration Date 02/04/20232341 - EKG Data -: EKG Interpreted by Me EKG Comments: 12-lead Electrocardiogram Interpretation Note EKG was reviewed and interpreted by myself. 12-lead ECG performed at 0848 is interpreted by me as revealing normal sinus rhythm at a rate of 117 beats per minute. [place] is somewhat rightward deviated. MN interval is 112 ms, QRS duration is 85 ms, QTc is 406 ms.. There were no ST or T wave abnormalities to suggest myocardial ischemia or injury. R wave progression across the precordium was satisfactory. By my interpretation this EKG is non-diagnostic for acute ischemia. Critical Care Time Critical Care Time: Yes Total Critical Care Time: 35 Disposition Clinical Impression: Hemoptysis, Tracheostomy dependence Disposition: ADMITTED IP TO THIS [facility] Condition: Serious Is patient prescribed a controlled substance at d/c from ED?: No Referrals: Fátima Velarde DO [Primary Care Provider] - 1-2 days Time of Disposition: 09:35
--- NOTE | 2023-02-01 08:59 | XR ---
EXAMINATION TYPE: XR chest 1V portable DATE OF EXAM: 02/01/2023 COMPARISON: 05/01/2022 INDICATION: Hemoptysis TECHNIQUE: Single frontal view of the chest is obtained. FINDINGS: The heart size is normal. The pulmonary vasculature is normal. The lungs are clear. Tracheostomy tube is in the midline. Left central venous catheter port is present with the tip in the superior vena cava region. IMPRESSION: 1. No acute pulmonary process.
[2023-02-01 09:02] LABS: Basophils # (A) 0.1 k/uL (0-0.2); Basophils % (A) 1 %; Eosinophils # (A) 0.2 k/uL (0-0.7); Eosinophils % (A) 2 %; HGB 14.3 gm/dL (13.0-17.5); Lymphocytes # (A) 1.1 k/uL (1.0-4.8); Lymphocytes % (A) 10 %; MCH 30.8 pg (25.0-35.0); MCHC 33.4 g/dL (31.0-37.0); MCV 92.3 fL (80.0-100.0); Mean Platelet Volume 9.2; Monocytes # (A) 0.6 k/uL (0-1.0); Monocytes % (A) 6 %; Neutrophils # (A) 8.9 k/uL (1.3-7.7); Neutrophils % (A) 81 %; RBC 4.66 m/uL (4.30-5.90); RDW 14.3 % (11.5-15.5)
[2023-02-01 09:15] LABS: Partial Thromboplastin Time 24.6 sec (22.0-30.0); Prothrombin Time 10.5 sec (9.0-12.0)
[2023-02-01 09:18] LABS: ALT 37 U/L (4-49); AST 35 U/L (17-59); African American GFR (CKD) >90 (>60 ml/min/1.73 sqM); Albumin 4.6 g/dL (3.5-5.0); Alkaline Phosphatase 89 U/L (38-126); Anion Gap 12 mmol/L; Blood Urea Nitrogen 18 mg/dL (9-20); Calcium 9.3 mg/dL (8.4-10.2); Carbon Dioxide 27 mmol/L (22-30); Chloride 91 mmol/L (98-107); Glucose 90 mg/dL (74-99); Magnesium 1.9 mg/dL (1.6-2.3); Non-African American GFR(CKD) >90 (>60 ml/min/1.73 sqM); Potassium 4.2 mmol/L (3.5-5.1); Sodium 130 mmol/L (137-145); Total Bilirubin 0.4 mg/dL (0.2-1.3); Total Protein 8.4 g/dL (6.3-8.2)
[2023-02-01] MEDS ORDERED: methylPREDNISolone SOD SUCCI 125 MG/2 ML VIAL IV STA (09:23)
[2023-02-01] MEDS: PIPERACILLIN-TAZOBACTAM 3.375 GM in SODIUM CHLORIDE 0.9% 100 ML IVPB SCH ×2 (09:40→18:34)
[2023-02-01] MEDS ORDERED: NALOXONE 0.4 MG/ML 1 ML VIAL IV PRN (09:43)
[2023-02-01 09:44] LABS: Platelet Count 82 k/uL (150-450); RBC Morphology Normal
--- NOTE | 2023-02-01 10:19 | US ---
EXAMINATION TYPE: US venous doppler duplex LE BI DATE OF EXAM: 02/01/2023 10:07 AM COMPARISON: 05/02/2022 CLINICAL INDICATION: Male, 62 years old with history of eval for dvt; No redness or swelling. Bleedi ng from trach tube. EC patient. SIDE PERFORMED: Bilateral TECHNIQUE: The lower extremity deep venous system is examined utilizing real time linear array sonog dayana with graded compression, doppler sonography and color-flow sonography. VESSELS IMAGED: Common Femoral Vein Deep Femoral Vein Greater Saphenous Vein * Femoral Vein Popliteal Vein Small Saphenous Vein * Proximal Calf Veins (* superficial vessels) Right Leg: Negative for DVT Left Leg: Negative for DVT IMPRESSION: 1. Bilateral lower extremity ultrasound negative for deep venous thrombosis.
--- NOTE | 2023-02-01 10:47 | P.CNPUL ---
History of Present Illness Consult date: 02/01/23 Requesting physician: Fátima Velarde Reason for consult: dyspnea, cough, hypoxemia Chief complaint: Hemoptysis. History of present illness: Pulmonary consult dated 02/01/2023. 62-year-old male with a history of oral cancer, status post tracheostomy and PEG tube placement, who presents to the emergency department, on February 01, coughing up blood. The blood is bright red. It seems to be emanating from both his oral cavity, and also from his tracheostomy tube. The patient is seen in the [facility] department, trauma room 2. He's currently on room air. He's not receiving any IV fluids. The patient is able to speak, although he appears to be mildly short of breath. I've seen the patient before in March of last year, and my partner, has also seen him in April of last year. I was able to do bronchoscopy on the patient, but did not find a source of bleeding. White count 11, hemoglobin 14.3, hematocrit 43, and platelet count 82,000. D-dimer was 1.31. The patient was to have a computed tomography scan of the chest, but could not lay flat. Sodium 130, potassium 4.2, chlorides 91, CO2 27, BUN 18, and creatinine 0.6. The patient has a history of throat cancer, COPD, acid r eflux disease, myocardial infarction, pneumonia, and seizure disorder. The patient's chest x-ray showed no acute abnormality. Doppler studies of bilateral lower extremities, were negative for DVT. Review of Systems REVIEW OF SYSTEMS: CONSTITUTIONAL: [Negative.] NEUROLOGIC: [ Negative.] HEENT: [ Negative.] CARDIAC: [Negative.] PULMONARY: Hemoptysis. Gastrointestinal: Hematemesis. Genitourinary: Negative. RHEUMATOLOGIC: [ Negative.] IMMUNOLOGIC: [ Negative.] ENDOCRINE: [Negative. ] DERMATOLOGIC: [Negative.] Past Medical History Past Medical History: Cancer, COPD, GERD/Reflux, Myocardial Infarction ([place]), Pneumonia, Seizure Disorder Additional Past Medical History / Comment(s): 07/30/20 fall with impacted R hip fracture/tracheal bronchitis, hemoptysis, pulmonary nodules. 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 Last chemo/radiation in 2017. Last Myocardial Infarction Date:: 2014 History of Any Multi-Drug Resistant Organisms: None Reported Past Surgical History: Heart Catheterization Additional Past Surgical History / Comment(s): Oral surgery with resection floor of mouth/tongue/mandible and bilateral neck resection with skin graft taken from L upper arm at [facility], tracheostomy, peg tube Past Anesthesia/Blood Transfusion Reactions: No Reported Reaction Additional Past Anesthesia/Blood Transfusion Reaction / Comment(s): adopted - no family hx Past Psychological History: Anxiety, Depression Smoking Status: Current every day smoker Past Alcohol Use History: Daily, Heavy Past Drug Use History: Marijuana - Past Family History Mother Family Medical History: Unable to Obtain Additional Family Medical History / Comment(s): pt is adopted Medications and Allergies Home Medications Medication Instructions Recorded Confirmed Type Cyanocobalamin [Vitamin B-12] 500 mcg PEG/G-TUBE DAILY 09/15/20 02/01/23 History Aspirin EC [Ecotrin Low Dose] 81 mg PEG/G-TUBE DAILY 02/08/21 02/01/23 History Amitriptyline HCl [Elavil] 25 mg PEG/G-TUBE HS 03/22/22 02/01/23 History Baclofen [Lioresal] 10 mg PEG/G-TUBE TID 03/22/22 02/01/23 History Ipratropium-Albuterol Nebulize 3 ml INHALATION RT-Q6H PRN 03/22/22 02/01/23 History [Duoneb 0.5 mg-3 mg/3 ml Soln] Levothyroxine Sodium 25 mcg PEG/G-TUBE DAILY 03/22/22 02/01/23 History Sertraline [Zoloft] 25 mg PEG/G-TUBE DAILY 03/22/22 02/01/23 History busPIRone HCL 5 mg PEG/G-TUBE BID 03/22/22 02/01/23 History lamoTRIgine [LaMICtal] 25 mg PEG/G-TUBE BID 03/22/22 02/01/23 History Spironolactone [Aldactone] 25 mg PEG/G-TUBE DAILY #30 tab 03/28/22 02/01/23 Rx lisinopriL [Zestril] 2.5 mg PEG/G-TUBE DAILY #30 tab 03/28/22 02/01/23 Rx Sodium Chloride Tab 1 gm PEG/G-TUBE DAILY #30 tab 05/02/22 02/01/23 Rx Metoprolol Succinate [Toprol XL] 25 mg PEG/G-TUBE BID 08/27/22 02/01/23 History Pantoprazole Sodium [Protonix] 20 mg PEG/G-TUBE DAILY 08/27/22 02/01/23 History Thiamine [Vitamin B-1] 100 mg PEG/G-TUBE DAILY 08/27/22 02/01/23 History Midodrine [ProAmatine] 5 mg PEG/G-TUBE PC-BID 02/01/23 02/01/23 History traMADol HCl [Ultram] 50 mg PEG/G-TUBE Q6HR PRN 02/01/23 02/01/23 History Allergies Allergy/AdvReac Type Severity Reaction Status Date / Time No Known Allergies Allergy Verified 02/01/23 10:21 Physical Exam Osteopathic Statement: *. No significant issues noted on an osteopathic structural exam other than those noted in the History and Physical/Consult. Vitals: Vital Signs Temp Pulse Resp BP Pulse Ox 02/01/23 09:19 123 H 21 130/81 98 02/01/23 08:23 22 02/01/23 08:13 97.2 F L 133 H 24 124/67 97 Intake and Output 01/31/23 02/01/23 02/01/23 22:59 06:59 14:59 Other: Weight 70.307 kg No acute distress, oriented 3. HEENT examination is grossly unremarkable. Neck supple. Full range of motion. No adenopathy thyromegaly or neck vein distention. A midline tracheostomy tube is noted. Cardiovascular examination reveals regular rhythm rate. S1-S2 normal. No S3 or S4. No discernible murmur noted. Heart rate is 115 bpm. Lungs reveal scattered bilateral rhonchi. No wheezes. No crackles. Breath sounds are equal. Room air saturation 98%. Abdomen soft bowel sounds are heard. No masses or tenderness. A PEG tube is noted. Extremities are intact. No cyanosis clubbing or edema. Skin is without rash or lesion. Neurologic examination is brief but nonfocal. Results - Laboratory Findings CBC and BMP: 02/01/23 08:30 02/01/23 08:30 PT/INR, D-dimer PT 10.5 sec (9.0-12.0) 02/01/23 08:30 INR 1.0 (<1.2) 02/01/23 08:30 D-Dimer 1.31 mg/L FEU (<0.60) H 02/01/23 08:30 Abnormal lab findings: Abnormal Labs 02/01/23 02/01/23 02/01/23 08:30 08:30 08:30 WBC 11.0 H Plt Count 82 L Neutrophils # 8.9 H D-Dimer 1.31 H Sodium 130 L Chloride 91 L Creatinine 0.60 L Plasma Lactic Acid Turner Total Protein 8.4 H 02/01/23 08:30 WBC Plt Count Neutrophils # D-Dimer Sodium Chloride Creatinine Plasma Lactic Acid Turner 2.7 H* Total Protein - Diagnostic Findings Chest x-ray: image reviewed Assessment and Plan Assessment: Acute hemoptysis, in a patient with a prior history of oral cancer, status post tracheostomy and PEG tube placement. History of COPD. History of gastroesophageal reflux disease. History of myocardial infarction. History of pneumonia. Seizure disorder. History of anxiety/depression. Prior history of tobacco use. Plan: Plan dated 02/01/2023. The patient will be placed on corticosteroids, and antibiotics. We likely will give him Zosyn. We'll let the patient called down a bit, and maybe later this week, attempt a bronchoscopy and airway examination. I did a procedure on him back in March 2022, but could not find any active bleed medications and sugges tions are forthcoming. His respiratory and hemodynamic status are stable. His labs are reviewed. He could not lay flat for a CT of the chest. We will hold off on doing that at the current time. Time with Patient: Greater than 30
[2023-02-01] MEDS ORDERED: IPRATROPIUM-ALBUTEROL 3 ML NEB INHALATION PRN (11:32)
[2023-02-01] MEDS ORDERED: traMADol 50 MG TAB PEG/G-TUBE PRN (11:32)
[2023-02-01] MEDS: lamoTRIgine 25 MG TAB PEG/G-TUBE SCH ×2 (13:02→20:44)
[2023-02-01] MEDS: METOPROLOL SUCCINATE (ER) 25 MG TAB.ER.24H PO SCH ×2 (13:02→20:43)
[2023-02-01] MEDS: MIDODRINE 5 MG TAB PEG/G-TUBE SCH ×2 (13:03→18:34)
[2023-02-01] MEDS: BACLOFEN 10 MG TAB PEG/G-TUBE SCH ×2 (18:34→20:44)
[2023-02-01] MEDS: busPIRone HCl 5 MG TAB PEG/G-TUBE SCH (20:44)
[2023-02-01] MEDS: AMITRIPTYLINE HCL 25 MG TAB PEG/G-TUBE SCH (20:44)
[2023-02-02] MEDS: PIPERACILLIN-TAZOBACTAM 3.375 GM in SODIUM CHLORIDE 0.9% 100 ML IVPB SCH ×3 (00:27→18:28)
[2023-02-02 00:33] LABS: Glucose,Whole Blood 127 mg/dL (70-110)
[2023-02-02] MEDS: LEVOTHYROXINE 25 MCG TAB PEG/G-TUBE SCH (05:58)
[2023-02-02 06:34] LABS: Glucose,Whole Blood 134 mg/dL (70-110)
[2023-02-02 07:29] LABS: Basophils % (A) 0 %; Eosinophils % (A) 0 %; HCT 39.2 % (39.0-53.0); Lymphocytes # (A) 1.1 k/uL (1.0-4.8); Lymphocytes % (A) 11 %; MCH 30.9 pg (25.0-35.0); MCV 93.6 fL (80.0-100.0); Mean Platelet Volume 9.4; Monocytes # (A) 0.7 k/uL (0-1.0); Monocytes % (A) 7 %; Neutrophils # (A) 7.9 k/uL (1.3-7.7); Neutrophils % (A) 80 %; RBC 4.19 m/uL (4.30-5.90); RDW 14.6 % (11.5-15.5); WBC 9.9 k/uL (3.8-10.6)
[2023-02-02 07:44] LABS: African American GFR (CKD) >90 (>60 ml/min/1.73 sqM); Anion Gap 9 mmol/L; Blood Urea Nitrogen 16 mg/dL (9-20); Carbon Dioxide 24 mmol/L (22-30); Chloride 99 mmol/L (98-107); Glucose 97 mg/dL (74-99); Non-African American GFR(CKD) >90 (>60 ml/min/1.73 sqM); Potassium 4.5 mmol/L (3.5-5.1); Sodium 132 mmol/L (137-145)
[2023-02-02 08:07] LABS: Platelet Count 98 k/uL (150-450)
[2023-02-02] MEDS: CYANOCOBALAMIN 500 MCG TAB PEG/G-TUBE SCH (09:36)
[2023-02-02] MEDS: THIAMINE 100 MG TAB PEG/G-TUBE SCH (09:36)
[2023-02-02] MEDS: PANTOPRAZOLE 40 MG TABLET PO SCH (09:36)
[2023-02-02] MEDS: BACLOFEN 10 MG TAB PEG/G-TUBE SCH ×3 (09:37→21:30)
[2023-02-02] MEDS: METOPROLOL SUCCINATE (ER) 25 MG TAB.ER.24H PO SCH ×2 (09:37→21:30)
[2023-02-02] MEDS: SODIUM CHLORIDE TAB 1 GM TAB PEG/G-TUBE SCH (09:37)
[2023-02-02] MEDS: busPIRone HCl 5 MG TAB PEG/G-TUBE SCH ×2 (09:37→21:30)
[2023-02-02] MEDS: SPIRONOLACTONE 25 MG TAB PEG/G-TUBE SCH (09:37)
[2023-02-02] MEDS: MIDODRINE 5 MG TAB PEG/G-TUBE SCH ×2 (09:37→18:28)
[2023-02-02] MEDS: lamoTRIgine 25 MG TAB PEG/G-TUBE SCH ×2 (09:37→21:30)
[2023-02-02] MEDS: SERTRALINE 25 MG TAB PEG/G-TUBE SCH (09:37)
--- NOTE | 2023-02-02 11:17 | P.PN ---
Subjective Progress Note Date: 02/02/23 62-year-old male with a history of oral cancer, status post tracheostomy and PEG tube placement, who presents to the emergency department, on February 01, coughing up blood. The blood is bright red. It seems to be emanating from both his oral cavity, and also from his tracheostomy tube. The patient is seen in the emergency department, trauma room 2. He's currently on room air. He's not receiving any IV fluids. The patient is able to speak, although he appears to be mildly short of breath. I've seen the patient before in March of last year, and my partner, has also seen him in April of last year. I was able to do bronchoscopy on the patient, but did not find a source of bleeding. White count 11, hemoglobin 14.3, hematocrit 43, and platelet count 82,000. D-dimer was 1.31. The patient was to have a computed tomography scan of the chest, but could not lay flat. Sodium 130, potassium 4.2, chlorides 91, CO2 27, BUN 18, and creatinine 0.6. The patient has a history of throat cancer, COPD, acid reflux disease, myocardial infarction, pneumonia, and seizure disorder. The patient's chest x-ray showed no acute abnormality. Doppler studies of bilateral lower extremities, were negative for DVT. The patient is seen today 02/02/2023 in follow-up on the selective care unit. He is currently resting comfortably in bed. Awake and alert in no acute distress. Maintaining good O2 saturations in the mid 90s on room air. He has not had any further hemoptysis this morning. White count 9.9. Hemoglobin 13.0. Platelet count 98,000. Sodium 132. Potassium 4.5. Bicarb 24. BUN 16. Cr eatinine 0.77. He remains on antibiotics in the form of Zosyn and steroids. Objective - Vital Signs Vital signs: Vital Signs Temp 98.0 F 02/02/23 08:00 Pulse 90 02/02/23 08:00 Resp 18 02/02/23 08:00 BP 115/73 02/02/23 08:00 Pulse Ox 96 02/02/23 08:00 FiO2 28 02/02/23 11:06 Intake & Output 02/01/23 02/02/23 02/02/23 18:59 06:59 18:59 Output Total 525 600 Balance -525 -600 Weight 70.307 kg Output: Urine 525 600 Other: Voiding Method Urinal - Exam GENERAL EXAM: Alert, alert 62-year-old male, on room air, comfortable in no apparent distress. HEAD: Normocephalic. EYES: Normal reaction of pupils, equal size. NOSE: Clear with pink turbinates. THROAT: Tracheostomy tube secured in place. No erythema or exudates. NECK: No masses, no JVD. CHEST: No chest wall deformity. LUNGS: Equal air entry with no crackles, wheeze, rhonchi or dullness. CVS: S1 and S2 normal with no audible murmur, regular rhythm. ABDOMEN: PEG tube exit site clean and dry. No hepatosplenomegaly, normal bowel sounds, no guarding or rigidity. SPINE: No scoliosis or deformity SKIN: No rashes CENTRAL NERVOUS SYSTEM: No focal deficits, tone is normal in all 4 extremities. EXTREMITIES: There is no peripheral edema. No clubbing, no cyanosis. Peripheral pulses are intact. - Labs CBC & Chem 7: 02/02/23 06:45 02/02/23 06:45 Labs: Abnormal Lab Results - Last 24 Hours (Table) 02/02/23 02/02/23 02/02/23 Range/Units 00:32 06:31 06:45 RBC 4.19 L (4.30-5.90) m/uL Plt Count 98 L (150-450) k/uL Neutrophils # 7.9 H (1.3-7.7) k/uL Sodium (137-145) mmol/L POC Glucose (mg/dL) 127 H 134 H (70-110) mg/dL 02/02/23 Range/Units 06:45 RBC (4.30-5.90) m/uL Plt Count (150-450) k/uL Neutrophils # (1.3-7.7) k/uL Sodium 132 L (137-145) mmol/L POC Glucose (mg/dL) (70-110) mg/dL Assessment and Plan Assessment: Acute hemoptysis, in a patient with a prior history of oral cancer, status post tracheostomy and PEG tube placement. History of COPD. History of gastroesophageal reflux disease. History of myocardial infarction. History of pneumonia. Seizure disorder. History of anxiety/depression. Prior history of tobacco use. Plan: The patient was seen and evaluated Medications and labs reviewed No further hemoptysis today Continue Zosyn and steroids We will continue to follow I have personally seen and examined the patient, performed the documentation and the assessment and plan as written. Number of minutes spent on the visit: 10.
[2023-02-02] MEDS: methylPREDNISolone SOD SUCCI 125 MG/2 ML VIAL IV SCH ×2 (12:38→18:28)
[2023-02-02 14:14] VITALS: BMI 22.2
[2023-02-02] MEDS: AMITRIPTYLINE HCL 25 MG TAB PEG/G-TUBE SCH (21:30)
[2023-02-02 22:37] LABS: Glucose,Whole Blood 202 mg/dL (70-110)
[2023-02-03] MEDS: methylPREDNISolone SOD SUCCI 125 MG/2 ML VIAL IV SCH ×2 (00:17→06:37)
[2023-02-03] MEDS: PIPERACILLIN-TAZOBACTAM 3.375 GM in SODIUM CHLORIDE 0.9% 100 ML IVPB SCH ×2 (00:21→10:08)
[2023-02-03 05:55] LABS: Glucose,Whole Blood 141 mg/dL (70-110)
[2023-02-03] MEDS ORDERED: DEXTROSE 50% SYRINGE 50 ML IVP PRN ×2 (06:11)
[2023-02-03] MEDS: LEVOTHYROXINE 25 MCG TAB PEG/G-TUBE SCH (06:37)
--- NOTE | 2023-02-03 09:29 | P.HPIM ---
History of Present Illness H&P Date: 02/02/23 Blake Brown is a 62 yo M with PMH of oral cancer, s/p tracheostomy and PEG placement who presented to the ED with hemopytsis. He states that since yesterday morning he has noticed blood tinged sputum from his tracheostomy. He denies fever, chills, sweats or shortness of breath. Pt most recently had br onchoscopy approx 9 months ago when he was admitted with similar presentation. He is currently on room air, WBC 11k, Hgb 14.3, plt 82k, D-dimer 1.31, Cr 0.6. Pt unable to tolerate CT chest. LEVD herbie LE negative for DVT. CXR no acute process. Review of Systems All systems: negative Constitutional: Reports lethargy, Reports malaise, Denies chills, Denies fever Eyes: denies blurred vision, denies pain Ears, nose, mouth and throat: Denies headache, Denies sore throat Cardiovascular: Denies chest pain, Denies shortness of breath Respiratory: Reports cough, Reports hemoptysis Gastrointestinal: Denies abdominal pain, Denies diarrhea, Denies nausea, Denies vomiting Musculoskeletal: Denies myalgias Integumentary: Denies pruritus, Denies rash Neurological: Denies numbness, Denies weakness Psychiatric: Denies anxiety, Denies depression Endocrine: Denies fatigue, Denies weight change Past Medical History Past Medical History: Cancer, COPD, GERD/Reflux, Myocardial Infarction ([place]), Pneumonia, Seizure Disorder Additional Past Medical History / Comment(s): 07/30/20 fall with impacted R hip fracture/tracheal bronchitis, hemoptysis, pulmonary nodules. 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 Last chemo/radiation in 2016. fell in August 2022, fractured leg and was transferred to [place] per patient Last Myocardial Infarction Date:: 2014 History of Any Multi-Drug Resistant Organisms: None Reported Past Surgical History: Heart Catheterization Additional Past Surgical History / Comment(s): Oral surgery with resection floor of mouth/tongue/mandible and bilateral neck resection with skin graft taken from L upper arm at [facility], tracheostomy, peg tube Past Anesthesia/Blood Transfusion Reactions: No Reported Reaction Additional Past Anesthesia/Blood Transfusion Reaction / Comment(s): adopted - no family hx Past Psychological History: Anxiety, Depression Additional Psychological History / Comment(s): Pt resides with his spouse. He states he has home care thru [facility]. He uses a walker to ambulate. Smoking Status: Current every day smoker Past Alcohol Use History: Daily, Heavy Additional Past Alcohol Use History / Comment(s): Pt started smoking in 1977 and is a 1/2 ppd smoker. Pt states he now has a beer occasionally thru peg tube. Past Drug Use History: Marijuana Additional Drug Use History / Comment(s): Pt uses marijuana rarely. - Past Family History Mother Family Medical History: Unable to Obtain Additional Family Medical History / Comment(s): pt is adopted Medications and Allergies Home Medications Medication Instructions Recorded Confirmed Type Cyanocobalamin [Vitamin B-12] 500 mcg PEG/G-TUBE DAILY 09/15/20 02/01/23 History Aspirin EC [Ecotrin Low Dose] 81 mg PEG/G-TUBE DAILY 02/08/21 02/01/23 History Amitriptyline HCl [Elavil] 25 mg PEG/G-TUBE HS 03/22/22 02/01/23 History Baclofen [Lioresal] 10 mg PEG/G-TUBE TID 03/22/22 02/01/23 History Ipratropium-Albuterol Nebulize 3 ml INHALATION RT-Q6H PRN 03/22/22 02/01/23 History [Duoneb 0.5 mg-3 mg/3 ml Soln] Levothyroxine Sodium 25 mcg PEG/G-TUBE DAILY 03/22/22 02/01/23 History Sertraline [Zoloft] 25 mg PEG/G-TUBE DAILY 03/22/22 02/01/23 History busPIRone HCL 5 mg PEG/G-TUBE BID 03/22/22 02/01/23 History lamoTRIgine [LaMICtal] 25 mg PEG/G-TUBE BID 03/22/22 02/01/23 History Spironolactone [Aldactone] 25 mg PEG/G-TUBE DAILY #30 tab 03/28/22 02/01/23 Rx lisinopriL [Zestril] 2.5 mg PEG/G-TUBE DAILY #30 tab 03/28/22 02/01/23 Rx Sodium Chloride Tab 1 gm PEG/G-TUBE DAILY #30 tab 05/02/22 02/01/23 Rx Metoprolol Succinate [Toprol XL] 25 mg PEG/G-TUBE BID 08/27/22 02/01/23 History Pantoprazole Sodium [Protonix] 20 mg PEG/G-TUBE DAILY 08/27/22 02/01/23 History Thiamine [Vitamin B-1] 100 mg PEG/G-TUBE DAILY 08/27/22 02/01/23 History Midodrine [ProAmatine] 5 mg PEG/G-TUBE PC-BID 02/01/23 02/01/23 History traMADol HCl [Ultram] 50 mg PEG/G-TUBE Q6HR PRN 02/01/23 02/01/23 History Allergies Allergy/AdvReac Type Severity Reaction Status Date / Time No Known Allergies Allergy Verified 02/01/23 10:21 Physical Exam Vitals: Vital Signs Temp Pulse Resp BP Pulse Ox FiO2 02/03/23 04:00 97.8 F 93 18 96/63 94 L 02/03/23 00:00 102 H 18 116/62 96 02/02/23 23:26 28 02/02/23 20:00 98.3 F 97 18 106/64 94 L 02/02/23 14:52 28 02/02/23 12:55 91 18 86/62 95 02/02/23 11:06 28 Intake and Output 02/02/23 02/03/23 02/03/23 22:59 06:59 14:59 Other: Voiding Method Urinal Gen: elderly male in NAD HEENT: tracheostomy, NC/AT CV: RRR, no murmur Lungs: Rhonchi, no rales or wheezing Abd: soft, nontender, non distended Neuro: AAOx3, no focal deficit Skin: warm and dry Results CBC & Chem 7: 02/02/23 06:45 02/02/23 06:45 Labs: Abnormal Lab Results - Last 24 Hours (Table) 02/02/23 02/03/23 Range/Units 22:36 05:54 POC Glucose (mg/dL) 202 H 141 H (70-110) mg/dL Microbiology - Last 24 Hours (Table) 02/01/23 09:56 Blood Culture - Preliminary Blood 02/01/23 09:56 Blood Culture - Preliminary Blood Assessment and Plan Plan: Acute hemopytsis, secondary to tracheobronchitis CAD Hx COPD hx pneumonia Major depression Admit and start IV zosyn, pulmonology consult. Supportive care. Hold ASA. Anticipate bronchoscopy this admission. Resume remainder of home medications. Follow labs
[2023-02-03] MEDS: MIDODRINE 5 MG TAB PEG/G-TUBE SCH ×2 (10:08→18:30)
[2023-02-03] MEDS: BACLOFEN 10 MG TAB PEG/G-TUBE SCH ×3 (10:08→21:01)
[2023-02-03] MEDS: lamoTRIgine 25 MG TAB PEG/G-TUBE SCH ×2 (10:08→21:01)
[2023-02-03] MEDS: METOPROLOL SUCCINATE (ER) 25 MG TAB.ER.24H PO SCH ×2 (10:08→21:01)
[2023-02-03] MEDS: CYANOCOBALAMIN 500 MCG TAB PEG/G-TUBE SCH (10:08)
[2023-02-03] MEDS: SPIRONOLACTONE 25 MG TAB PEG/G-TUBE SCH (10:08)
[2023-02-03] MEDS: SERTRALINE 25 MG TAB PEG/G-TUBE SCH (10:08)
[2023-02-03] MEDS: THIAMINE 100 MG TAB PEG/G-TUBE SCH (10:08)
[2023-02-03] MEDS: busPIRone HCl 5 MG TAB PEG/G-TUBE SCH ×2 (10:08→21:01)
[2023-02-03] MEDS: SODIUM CHLORIDE TAB 1 GM TAB PEG/G-TUBE SCH (10:08)
[2023-02-03] MEDS: PANTOPRAZOLE 40 MG TABLET PO SCH (10:08)
--- NOTE | 2023-02-03 11:35 | P.PN ---
Subjective Progress Note Date: 02/03/23 62-year-old male with a history of oral cancer, status post tracheostomy and PEG tube placement, who presents to the emergency department, on February 01, coughing up blood. The blood is bright red. It seems to be emanating from both his oral cavity, and also from his tracheostomy tube. The patient is seen in the emergency department, trauma room 2. He's currently on room air. He's not receiving any IV fluids. The patient is able to speak, although he appears to be mildly short of breath. I've seen the patient before in March of last year, and my partner, has also seen him in April of last year. I was able to do bronchoscopy on the patient, but did not find a source of bleeding. White count 11, hemoglobin 14.3, hematocrit 43, and platelet count 82,000. D-dimer was 1.31. The patient was to have a computed tomography scan of the chest, but could not lay flat. Sodium 130, potassium 4.2, chlorides 91, CO2 27, BUN 18, and creatinine 0.6. The patient has a history of throat cancer, COPD, acid reflux disease, myocardial infarction, pneumonia, and seizure disorder. The patient's chest x-ray showed no acute abnormality. Doppler studies of bilateral lower extremities, were negative for DVT. The patient is seen today 02/02/2023 in follow-up on the selective care unit. He is currently resting comfortably in bed. Awake and alert in no acute distress. Maintaining good O2 saturations in the mid 90s on room air. He has not had any further hemoptysis this morning. White count 9.9. Hemoglobin 13.0. Platelet count 98,000. Sodium 132. Potassium 4.5. Bicarb 24. BUN 16. Cr eatinine 0.77. He remains on antibiotics in the form of Zosyn and steroids. The patient is seen today 2022 in follow-up on the selective care unit. He is resting comfortably in bed. Awake and alert in no acute distress. Maintaining O2 saturations in the 90s currently on room air. Alternating with 28% trach collar. No further hemoptysis. The cultures revealing no growth in blood sugar 141. Remains on Zosyn and IV Solu-Medrol. Continued on bronchodilators as needed. Objective - Vital Signs Vital signs: Vital Signs Temp 97.5 F L 02/03/23 08:00 Pulse 99 02/03/23 08:00 Resp 18 02/03/23 08:00 BP 117/79 02/03/23 08:00 Pulse Ox 95 02/03/23 10:11 FiO2 28 02/03/23 10:11 Intake & Output 02/02/23 02/03/23 02/03/23 18:59 06:59 18:59 Output Total 300 Balance -300 Weight 70.307 kg Output: Urine 300 Other: Voiding Method Urinal Urinal # Voids 1 - Exam GENERAL EXAM: Alert, alert 62-year-old male, resting comfortably in bed, on room air, in no apparent distress. HEAD: Normocephalic. EYES: Normal reaction of pupils, equal size. NOSE: Clear with pink turbinates. THROAT: Tracheostomy tube secured in place. No erythema or exudates. NECK: No masses, no JVD. CHEST: No chest wall deformity. LUNGS: Equal air entry with no crackles, wheeze, rhonchi or dullness. CVS: S1 and S2 normal with no audible murmur, regular rhythm. ABDOMEN: PEG tube exit site clean and dry. No hepatosplenomegaly, normal bowel sounds, no guarding or rigidity. SPINE: No scoliosis or deformity SKIN: No rashes CENTRAL NERVOUS SYSTEM: No focal deficits, tone is normal in all 4 extremities. EXTREMITIES: There is no peripheral edema. No clubbing, no cyanosis. Peripheral pulses are intact. - Labs CBC & Chem 7: 02/02/23 06:45 02/02/23 06:45 Labs: Abnormal Lab Results - Last 24 Hours (Table) 02/02/23 02/03/23 Range/Units 22:36 05:54 POC Glucose (mg/dL) 202 H 141 H (70-110) mg/dL Microbiology - Last 24 Hours (Table) 02/01/23 09:56 Blood Culture - Preliminary Blood 02/01/23 09:56 Blood Culture - Preliminary Blood Assessment and Plan Assessment: Acute hemoptysis, in a patient with a prior history of oral cancer, status post tracheostomy and PEG tube placement. History of COPD. History of gastroesophageal reflux disease. History of myocardial infarction. History of pneumonia. Seizure disorder. History of anxiety/depression. Prior history of tobacco use. Plan: The patient was seen and evaluated Medications and labs reviewed No further hemoptysis since admission Discontinue Zosyn, initiate Augmentin Discontinue the Solu-Medrol, initiate prednisone taper Stable and on room air Could be discharged home Follow-up in our office in 1 week I have personally seen and examined the patient, performed the documentation and the assessment and plan as written. Number of minutes spent on the visit: 10.
[2023-02-03 12:00] LABS: Glucose,Whole Blood 175 mg/dL (70-110)
[2023-02-03] MEDS: INSULIN ASPART (NovoLOG) 100 UNIT/ML VIAL SQ SCH ×2 (12:13→18:24)
[2023-02-03 17:57] LABS: Glucose,Whole Blood 107 mg/dL (70-110)
[2023-02-03] MEDS: AMITRIPTYLINE HCL 25 MG TAB PEG/G-TUBE SCH (21:01)
[2023-02-03] MEDS: AMOXIC-POT CLAV 875-125MG 1 EACH TAB PO SCH (21:01)
[2023-02-04 00:03] LABS: Glucose,Whole Blood 121 mg/dL (70-110)
[2023-02-04] MEDS: INSULIN ASPART (NovoLOG) 100 UNIT/ML VIAL SQ SCH ×3 (00:23→12:52)
[2023-02-04 06:10] LABS: Glucose,Whole Blood 92 mg/dL (70-110)
[2023-02-04] MEDS: LEVOTHYROXINE 25 MCG TAB PEG/G-TUBE SCH (06:26)
[2023-02-04 08:51] VITALS: RESP 20
[2023-02-04] MEDS: SODIUM CHLORIDE TAB 1 GM TAB PEG/G-TUBE SCH (08:56)
[2023-02-04] MEDS: SPIRONOLACTONE 25 MG TAB PEG/G-TUBE SCH (08:56)
[2023-02-04] MEDS: MIDODRINE 5 MG TAB PEG/G-TUBE SCH (08:56)
[2023-02-04] MEDS: lamoTRIgine 25 MG TAB PEG/G-TUBE SCH (08:57)
[2023-02-04] MEDS: AMOXIC-POT CLAV 875-125MG 1 EACH TAB PO SCH (08:57)
[2023-02-04] MEDS: THIAMINE 100 MG TAB PEG/G-TUBE SCH (08:57)
[2023-02-04] MEDS: PANTOPRAZOLE 40 MG TABLET PO SCH (08:57)
[2023-02-04] MEDS: busPIRone HCl 5 MG TAB PEG/G-TUBE SCH (08:57)
[2023-02-04] MEDS: BACLOFEN 10 MG TAB PEG/G-TUBE SCH (08:57)
[2023-02-04] MEDS: SERTRALINE 25 MG TAB PEG/G-TUBE SCH (08:57)
[2023-02-04] MEDS: METOPROLOL SUCCINATE (ER) 25 MG TAB.ER.24H PO SCH (08:57)
[2023-02-04] MEDS: CYANOCOBALAMIN 500 MCG TAB PEG/G-TUBE SCH (08:57)
[2023-02-04] MEDS ORDERED: predniSONE 20 MG TAB PO SCH (09:00)
--- NOTE | 2023-02-04 11:14 | P.PN ---
Subjective Progress Note Date: 02/04/23 Principal diagnosis: Hemoptysis. 62-year-old male with a history of oral cancer, status post tracheostomy and PEG tube placement, who presents to the emergency department, on February 01, coughing up blood. The blood is bright red. It seems to be emanating from both his oral cavity, and also from his tracheostomy tube. The patient is seen in the emergency department, trauma room 2. He's currently on room air. He's not receiving any IV fluids. The patient is able to speak, although he appears to be mildly short of breath. I've seen the patient before in March of last year, and my partner, has also seen him in April of last year. I was able to do bronchoscopy on the patient, but did not find a source of bleeding. White count 11, hemoglobin 14.3, hematocrit 43, and platelet count 82,000. D-dimer was 1.31. The patient was to have a computed tomography scan of the chest, but could not lay flat. Sodium 130, potassium 4.2, chlorides 91, CO2 27, BUN 18, and creatinine 0.6. The patient has a history of throat cancer, COPD, acid reflux disease, myocardial infarction, pneumonia, and seizure disorder. The patient's chest x-ray showed no acute abnormality. Doppler studies of bilateral lower extremities, were negative for DVT. The patient is seen today 02/02/2023 in follow-up on the selective care unit. He is currently resting comfortably in bed. Awake and alert in no acute distress. Maintaining good O2 saturations in the mid 90s on room air. He has not had any further hemoptysis this morning. White count 9.9. Hemoglobin 13.0. Platelet count 98,000. Sodium 132. Potassium 4.5. Bicarb 24. BUN 16. Creatinine 0.77. He remains on antibiotics in the form of Zosyn and steroids. The patient is seen today 2022 in follow-up on the selective care unit. He is resting comfortably in bed. Awake and alert in no acute distress. Maintaining O2 saturations in the 90s currently on room air. Alternating with 28% trach collar. No further hemoptysis. The cultures revealing no growth in blood sugar 141. Remains on Zosyn and IV Solu-Medrol. Continued on bronchodilators as needed. Progress note dated 02/04/2023. The patient is seen today in room 382. The patient was admitted with a diagnosis of hemoptysis. He was placed on breathing treatments and steroids. The patient's doing much better. He's not had any additional hemoptysis for the last 2 days. He's not receiving any IV fluids. He is on trach collar 28%. Yesterday, we sent the patient could be considered for discharge. Blood cultures are negative. The patient's currently on prednisone and Augmentin, and previously was on IV Solu-Medrol and Zosyn. The only labs today as a glucose of 92. Objective - Vital Signs Vital signs: Vital Signs Temp 96.9 F L 02/04/23 08:00 Pulse 96 02/04/23 08:00 Resp 20 02/04/23 08:00 BP 103/73 02/04/23 08:00 Pulse Ox 92 L 02/04/23 09:10 FiO2 28 02/03/23 16:41 Intake & Output 02/03/23 02/04/23 02/04/23 18:59 06:59 18:59 Intake Total 70 Output Total 300 200 Balance -300 -130 Weight 70.307 kg Intake: IV 10 Invasive Line 1 10 Other 60 Output: Urine 300 200 Other: Voiding Method Urinal Urinal # Voids 1 - Exam No acute distress, oriented 3. Currently on trach collar at 28% HEENT examination is grossly unremarkable. Neck supple. Full range of motion. No adenopathy thyromegaly or neck vein distention. A midline tracheostomy tube is noted. Cardiovascular examination reveals regular rhythm rate. S1-S2 normal. No S3 or S4. No discernible murmur noted. Heart rate 96 bpm. Lungs reveal scattered rhonchi. No wheezes or crackles. Saturations are excellent, and room air saturations are also excellent at 96%. Abdomen soft bowel sounds are heard. No masses or tenderness. A PEG tube is noted. Extremities are intact. No cyanosis clubbing or edema. Skin is without rash or lesion. Neurologic examination is brief but nonfocal. - Labs CBC & Chem 7: 02/02/23 06:45 02/02/23 06:45 Labs: Abnormal Lab Results - Last 24 Hours (Table) 02/03/23 02/04/23 Range/Units 11:59 00:00 POC Glucose (mg/dL) 175 H 121 H (70-110) mg/dL Microbiology - Last 24 Hours (Table) 02/01/23 09:56 Blood Culture - Preliminary Blood 02/01/23 09:56 Blood Culture - Preliminary Blood Assessment and Plan Assessment: Acute hemoptysis, in a patient with a prior history of oral cancer, status post tracheostomy and PEG tube placement. History of COPD. History of gastroesophageal reflux disease. History of myocardial infarction. History of pneumonia. Seizure disorder. History of anxiety/depression. Prior history of tobacco use. Plan: Plan dated 02/01/2023. The patient will be placed on corticosteroids, and antibiotics. We likely will give him Zosyn. We'll let the patient called down a bit, and maybe later this week, attempt a bronchoscopy and airway examination. I did a procedure on him back in March 2022, but could not find any active bleed medications and suggestions are forthcoming. His respiratory and hemodynamic status are stable. His labs are reviewed. He could not lay flat for a CT of the chest. We will hold off on doing that at the current time. Plan dated 02/04/2023. The patient responded very nicely to conservative management with Zosyn, breathing treatments, and IV Solu-Medrol. The patient has had no further episodes of hemoptysis. The patient was converted to prednisone orally, and oral antibiotic in the form of Augmentin. The patient could be considered for possible discharge. We will leave that up to the primary service. No additional recommendations are made. Prognosis is guarded. Time with Patient: Less than 30
[2023-02-04 11:58] LABS: Glucose,Whole Blood 144 mg/dL (70-110)
--- NOTE | 2023-02-04 12:40 | P.DS ---
Providers Date of admission: 02/01/23 09:43 Expected date of discharge: 02/04/23 Attending physician: Phill Tan MD Consults: 02/01/23 08:27 Consult Physician Urgent Consulting Provider: Salvador Mitchell Consult Reason/Comments: hemoptysis Do you want consulting provider notified?: Already Contacted Primary care physician: Fátima Velarde Hospital Course: Discharge diagnoses; Acute hemoptysis, in a patient with a prior history of oral cancer, status post tracheostomy and PEG tube placement. History of COPD. History of gastroesophageal reflux disease. History of myocardial infarction. History of pneumonia. Seizure disorder. History of anxiety/depression. Prior history of tobacco use. Hospital course; Blake Brown is a 62 yo M with PMH of oral cancer, s/p tracheostomy and PEG placement who presented to the ED with hemopytsis. He states that since yesterday morning he has noticed blood tinged sputum from his tracheostomy. He denies fever, chills, sweats or shortness of breath. Pt most recently had bronchoscopy approx 9 months ago when he was admitted with similar presentation. He is currently on room air, WBC 11k, Hgb 14.3, plt 82k, D-dimer 1.31, Cr 0.6. Pt unable to tolerate CT chest. LEVD herbie LE negative for DVT. CXR no acute process. Patient was being seen by pulmonary, was on antibiotics and steroids 02/04. Patient seen and examined. Dr. Snyder took over care, covering for Dr. Tan. Pulmonology has cleared the patient for discharge. Being discharged on oral Augmentin for 4 more days and prednisone for 4 more days PHYSICAL EXAMINATION: GENERAL: The patient is alert and oriented x3, not in any acute distress. Well developed, well nourished. HEENT: Pupils are round and equally reacting to light. EOMI. No scleral icterus. No conjunctival pallor. Normocephalic, atraumatic. No pharyngeal erythema. No thyromegaly. Trach seen CARDIOVASCULAR: S1 and S2 present. No murmurs, rubs, or gallops. PULMONARY: Chest is clear to auscultation, no wheezing or crackles. ABDOMEN: Soft, nontender, nondistended, normoactive bowel sounds. No palpable organomegaly. PEG tube seen MUSCULOSKELETAL: No joint swelling or deformity. EXTREMITIES: No cyanosis, clubbing, or pedal edema. NEUROLOGICAL: Gross neurological examination did not reveal any focal deficits. SKIN: No rashes. Patient Condition at Discharge: Serious Plan - Discharge Summary New Discharge Prescriptions: New Amoxic-Pot Clav 875-125Mg [Augmentin 875-125] 1 each PO Q12HR 4 Days #8 tab predniSONE [Deltasone] 40 mg PO DAILY #8 tab Continue Cyanocobalamin [Vitamin B-12] 500 mcg PEG/G-TUBE DAILY Baclofen [Lioresal] 10 mg PEG/G-TUBE TID Levothyroxine Sodium 25 mcg PEG/G-TUBE DAILY lamoTRIgine [LaMICtal] 25 mg PEG/G-TUBE BID Amitriptyline HCl [Elavil] 25 mg PEG/G-TUBE HS Ipratropium-Albuterol Nebulize [Duoneb 0.5 mg-3 mg/3 ml Soln] 3 ml INHALATION RT-Q6H PRN PRN Reason: Shortness Of Breath Sodium Chloride Tab 1 gm PEG/G-TUBE DAILY #30 tab Thiamine [Vitamin B-1] 100 mg PEG/G-TUBE DAILY Aspirin EC [Ecotrin Low Dose] 81 mg PEG/G-TUBE DAILY Sertraline [Zoloft] 25 mg PEG/G-TUBE DAILY busPIRone HCL 5 mg PEG/G-TUBE BID Spironolactone [Aldactone] 25 mg PEG/G-TUBE DAILY #30 tab lisinopriL [Zestril] 2.5 mg PEG/G-TUBE DAILY #30 tab Pantoprazole Sodium [Protonix] 20 mg PEG/G-TUBE DAILY Metoprolol Succinate [Toprol XL] 25 mg PEG/G-TUBE BID traMADol HCl [Ultram] 50 mg PEG/G-TUBE Q6HR PRN PRN Reason: Pain Midodrine [ProAmatine] 5 mg PEG/G-TUBE PC-BID Discharge Medication List Cyanocobalamin [Vitamin B-12] 500 mcg PEG/G-TUBE DAILY 09/15/20 [History] Aspirin EC [Ecotrin Low Dose] 81 mg PEG/G-TUBE DAILY 02/08/21 [History] Amitriptyline HCl [Elavil] 25 mg PEG/G-TUBE HS 03/22/22 [History] Baclofen [Lioresal] 10 mg PEG/G-TUBE TID 03/22/22 [History] Ipratropium-Albuterol Nebulize [Duoneb 0.5 mg-3 mg/3 ml Soln] 3 ml INHALATION RT-Q6H PRN 03/22/22 [History] Levothyroxine Sodium 25 mcg PEG/G-TUBE DAILY 03/22/22 [History] Sertraline [Zoloft] 25 mg PEG/G-TUBE DAILY 03/22/22 [History] busPIRone HCL 5 mg PEG/G-TUBE BID 03/22/22 [History] lamoTRIgine [LaMICtal] 25 mg PEG/G-TUBE BID 03/22/22 [History] Spironolactone [Aldactone] 25 mg PEG/G-TUBE DAILY #30 tab 03/28/22 [Rx] lisinopriL [Zestril] 2.5 mg PEG/G-TUBE DAILY #30 tab 03/28/22 [Rx] Sodium Chloride Tab 1 gm PEG/G-TUBE DAILY #30 tab 05/02/22 [Rx] Metoprolol Succinate [Toprol XL] 25 mg PEG/G-TUBE BID 08/27/22 [History] Pantoprazole Sodium [Protonix] 20 mg PEG/G-TUBE DAILY 08/27/22 [History] Thiamine [Vitamin B-1] 100 mg PEG/G-TUBE DAILY 08/27/22 [History] Midodrine [ProAmatine] 5 mg PEG/G-TUBE PC-BID 02/01/23 [History] traMADol HCl [Ultram] 50 mg PEG/G-TUBE Q6HR PRN 02/01/23 [History] Amoxic-Pot Clav 875-125Mg [Augmentin 875-125] 1 each PO Q12HR 4 Days #8 tab 0 02/04/23 [Rx] predniSONE [Deltasone] 40 mg PO DAILY #8 tab 02/04/23 [Rx] Follow up Appointment(s)/Referral(s): Salvador Mitchell DO [Doctor of Osteopathic Medicine] - 1 Week Fátima Velarde DO [Primary Care Provider] - 1-2 days
[2023-02-04 12:46] VITALS: BP 115/86; PULSE 109; TEMP 97.2
== END 2023-02-04 13:56 | disposition home or self-care (01) | DRG 204 ==
LOC: EC 08:11 → 4SSUR 09:43 → 3SCARD 12:02
PROVIDERS: ADMIT Family Medicine; ATTEND Family Medicine
DX: R04.2 Hemoptysis (principal); E87.20 Acidosis, unspecified; E87.1 Hypo-osmolality and hyponatremia; G40.909 Epilepsy, unspecified, not intractable, without status epilepticus; F32.A Depression, unspecified; F41.9 Anxiety disorder, unspecified; Z85.819 Personal history of malignant neoplasm of unspecified site of lip, oral cavity, and pharynx; K21.9 Gastro-esophageal reflux disease without esophagitis; J44.9 Chronic obstructive pulmonary disease, unspecified; E86.0 Dehydration; G62.9 Polyneuropathy, unspecified; Z92.21 Personal history of antineoplastic chemotherapy; Z92.3 Personal history of irradiation; Z87.19 Personal history of other diseases of the digestive system; E87.8 Other disorders of electrolyte and fluid balance, not elsewhere classified; F10.20 Alcohol dependence, uncomplicated; I10 Essential (primary) hypertension; I25.2 Old myocardial infarction; G89.29 Other chronic pain; M54.9 Dorsalgia, unspecified; I25.10 Atherosclerotic heart disease of native coronary artery without angina pectoris; R09.02 Hypoxemia; Z79.899 Other long term (current) drug therapy; Z79.82 Long term (current) use of aspirin; Z87.01 Personal history of pneumonia (recurrent); Z66 Do not resuscitate; Z91.81 History of falling
CPT/HCPCS: 36415; 71045; 80048; 80053; 83605; 83735; 84484; 85025; 85379; 85610; 85730; 86850; 86900; 86901; 87040; 93005; 93970; 94640; 94760; 96361; 96365; 96366; 96375; 99291

== ENCOUNTER 2023-03-31 21:43 | Emergency (ER) | payer MEDICARE, OTHER ==
[2023-03-31 21:52] VITALS: BP 125/79; PULSE 86; RESP 20; TEMP 98
--- NOTE | 2023-03-31 22:47 | ED ---
Fall HPI - General Chief Complaint: Fall Stated Complaint: Fall Time Seen by Provider: 03/31/23 22:06 Source: EMS, RN notes reviewed, old records reviewed Mode of arrival: EMS Limitations: no limitations - History of Present Illness Initial Comments: This is a 62-year-old male to the ER today. Events surrounding this injury and accident are incomplete, patient does have significantly swollen right knee. Presents today for evaluation regards to a some sort of traumatic event, we do not know cause of traumatic event patient is unable to articulate if he is able to ambulate or not with significant right knee pain and injury significant swelling prompting visits the emergency department today. 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 Fall Witnessed: no Place Fall Occurred: home Loss of Consciousness: none Prolonged Down Time?: no Symptoms Prior to Fall: none Location - Extremities: Right: Knee Severity: moderate Severity scale (1-10): 6 Quality: sharp, crushing Context: tripped/slipped Associated Symptoms: denies - Related Data Home Medications Medication Instructions Recorded Confirmed Cyanocobalamin [Vitamin B-12] 500 mcg PEG/G-TUBE DAILY 09/15/20 02/01/23 Aspirin EC [Ecotrin Low Dose] 81 mg PEG/G-TUBE DAILY 02/08/21 02/01/23 Amitriptyline HCl [Elavil] 25 mg PEG/G-TUBE HS 03/22/22 02/01/23 Baclofen [Lioresal] 10 mg PEG/G-TUBE TID 03/22/22 02/01/23 Ipratropium-Albuterol Nebulize 3 ml INHALATION RT-Q6H PRN 03/22/22 02/01/23 [Duoneb 0.5 mg-3 mg/3 ml Soln] Levothyroxine Sodium 25 mcg PEG/G-TUBE DAILY 03/22/22 02/01/23 Sertraline [Zoloft] 25 mg PEG/G-TUBE DAILY 03/22/22 02/01/23 busPIRone HCL 5 mg PEG/G-TUBE BID 03/22/22 02/01/23 lamoTRIgine [LaMICtal] 25 mg PEG/G-TUBE BID 03/22/22 02/01/23 Metoprolol Succinate [Toprol XL] 25 mg PEG/G-TUBE BID 08/27/22 02/01/23 Pantoprazole Sodium [Protonix] 20 mg PEG/G-TUBE DAILY 08/27/22 02/01/23 Thiamine [Vitamin B-1] 100 mg PEG/G-TUBE DAILY 08/27/22 02/01/23 Midodrine [ProAmatine] 5 mg PEG/G-TUBE PC-BID 02/01/23 02/01/23 traMADol HCl [Ultram] 50 mg PEG/G-TUBE Q6HR PRN 02/01/23 02/01/23 Previous Rx's Medication Instructions Recorded Spironolactone [Aldactone] 25 mg PEG/G-TUBE DAILY #30 tab 03/28/22 lisinopriL [Zestril] 2.5 mg PEG/G-TUBE DAILY #30 tab 03/28/22 Sodium Chloride Tab 1 gm PEG/G-TUBE DAILY #30 tab 05/02/22 Amoxic-Pot Clav 875-125Mg 1 each PO Q12HR 4 Days #8 tab 02/04/23 [Augmentin 875-125] predniSONE [Deltasone] 40 mg PO DAILY #8 tab 02/04/23 Allergies Allergy/AdvReac Type Severity Reaction Status Date / Time No Known Allergies Allergy Verified 02/01/23 10:21 Review of Systems ROS Statement: Those systems with pertinent positive or pertinent negative responses have been documented in the HPI. ROS Other: All systems not noted in ROS Statement are negative. Past Medical History Past Medical History: Cancer, COPD, GERD/Reflux, Myocardial Infarction (CT), Pneumonia, Seizure Disorder Additional Past Medical History / Comment(s): 07/30/20 fall with impacted R hip fracture/tracheal bronchitis, hemoptysis, pulmonary nodules. 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 Last chemo/radiation in 2016. fell in August 2022, fractured leg and was transferred to [place] per patient Last Myocardial Infarction Date:: 2014 History of Any Multi-Drug Resistant Organisms: None Reported Past Surgical History: Heart Catheterization Additional Past Surgical History / Comment(s): Oral surgery with resection floor of mouth/tongue/mandible and bilateral neck resection with skin graft taken from L upper arm at [facility] [place], tracheostomy, peg tube Past Anesthesia/Blood Transfusion Reactions: No Reported Reaction Additional Past Anesthesia/Blood Transfusion Reaction / Comment(s): adopted - no family hx Past Psychological History: Anxiety, Depression Additional Psychological History / Comment(s): Pt resides with his spouse. He states he has home care thru [facility]. He uses a walker to ambulate. Smoking Status: Current every day smoker Past Alcohol Use History: Daily, Heavy Additional Past Alcohol Use History / Comment(s): Pt started smoking in 1977 and is a 1/2 ppd smoker. Pt states he now has a beer occasionally thru peg tube. Past Drug Use History: Marijuana Additional Drug Use History / Comment(s): Pt uses marijuana rarely. - Past Family History Mother Family Medical History: Unable to Obtain Additional Family Medical History / Comment(s): pt is adopted General Exam Limitations: altered mental status General appearance: alert, in no apparent distress Head exam: Present: atraumatic, normocephalic, normal inspection Eye exam: Present: normal appearance, PERRL, EOMI. Absent: scleral icterus, conjunctival injection, periorbital swelling ENT exam: Present: normal exam, mucous membranes moist Neck exam: Present: normal inspection. Absent: tenderness, meningismus, lymphadenopathy Respiratory exam: Present: normal lung sounds bilaterally. Absent: respiratory distress, wheezes, rales, rhonchi, stridor Cardiovascular Exam: Present: regular rate, normal rhythm, normal heart sounds. Absent: systolic murmur, diastolic murmur, rubs, gallop, clicks GI/Abdominal exam: Present: soft, normal bowel sounds. Absent: distended, tenderness, guarding, rebound, rigid Extremities exam: Present: normal inspection, tenderness (Significant swelling to right knee, hematoma), normal capillary refill, other (Significant swelling right knee). Absent: full ROM, pedal edema, joint swelling, calf tenderness Back exam: Present: normal inspection Neurological exam: Present: alert, oriented X3, CN II-XII intact Psychiatric exam: Present: normal affect, normal mood Skin exam: Present: warm, dry, intact, normal color. Absent: rash Course Vital Signs 03/31/23 21:45 Temperature 98.0 F Pulse Rate 86 Respiratory 20 Rate Blood Pressure 125/79 - Reevaluation(s) Reevaluation #1: 03/31/23 23:26 medical record is reviewed Reevaluation #2: 03/31/23 23:26 patient symptoms unsure which, able to move left leg and right leg Reevaluation #3: 03/31/23 23:26 patient informed of results and questions answered Reevaluation #4: 03/31/23 23:26 Was pt. sent in by a medical professional or institution (GILBERTO Whitman, CUSTOM DESIGNER, urgent care, hospital, or group home...) When possible be specific @ -no Did you speak to anyone other than the patient for history (EMS, parent, family, police, friend...)? What history was obtained from this source @ -no Did you review nursing and triage notes (agree or disagree)? Why? @ -agree Are old charts reviewed (outside hosp., previous admission, EMS record, old EKG, old radiological studies, urgent care reports/EKG's, group home records)? Report findings @ -yes Differential Diagnosis (chest pain, altered mental status, abdominal pain women, abdominal pain men, vaginal bleeding, weakness, fever, dyspnea, syncope, headache, dizziness, GI bleed, back pain, seizure, CVA, palpatations, mental health, musculoskeletal)? @ -prior EKG interpreted by me (3pts min.). @ -no X-rays interpreted by me (1pt min.). @ -yes CT interpreted by me (1pt min.). @ -no U/S interpreted by me (1pt. min.). @ -no What testing was considered but not performed or refused? (CT, X-rays, U/S, labs)? Why? @ -none What meds were considered but not given or refused? Why? @ -none Did you discuss the management of the patient with other professionals (professionals i.e. GILBERTO Whitman, CUSTOM DESIGNER, lab, RT, psych nurse, socially responsible investment adviser, critical care nurse specialist, teacher, loan officer assistant, case specialist)? Give summary @ -no Was smoking cessation discussed for >3mins.? @ -no Was critical care preformed (if so, how long)? @ -no Were there social determinants of health that impacted care today? How? (Homelessness, low income, unemployed, alcoholism, drug addiction, transportation, low edu. Level, literacy, decrease access to med. care, fdc, rehab)? @ -none Was there de-escalation of care discussed even if they declined (Discuss DNR or withdrawal of care, Hospice)? DNR status @ -no What co-morbidities impacted this encounter? (DM, HTN, Smoking, COPD, CAD, Cancer, CVA, ARF, Chemo, Hep., AIDS, mental health diagnosis, sleep apnea, mor bid obesity)? @ -none Was patient admitted / discharged? Hospital course, mention meds given and ro lime, prescriptions, significant lab abnormalities, going to OR and other pertinent info. @ - 62 male to the Emergency Deparyment for evaluation after fall unknown significant injury right knee pain and swelling. Patient does have tibial plateau fracture that knee an old right tibial fracture. Patient will be transferred for orthopedic trauma treatment is unsure if patient is able to ambulate and walk at baseline or how he fell Transferred [facility] Admitted Undiagnosed new problem with uncertain prognosis? @ -no Drug Therapy requiring intensive monitoring for toxicity (Heparin, Nitro, Insulin, Cardizem)? @ -no Were any procedures done? @ -no Diagnosis/symptom? @ -Right tibial plateau fracture Acute, or Chronic, or Acute on Chronic? @ -Acute Uncomplicated (without systemic symptoms) or Complicated (systemic symptoms)? @ -Complicated Side effects of treatment? @ -no Exacerbation, Progression, or Severe Exacerbation? @ -exacerbation Poses a threat to life or bodily function? How? (Chest pain, USA, CT, pneumonia, PE, COPD, DKA, ARF, appy, cholecystitis, CVA, Diverticulitis, Homicidal, Suicidal, threat to staff... and all critical care pts) @ -no - Consultations Consultation #1: Spoke with [facility] will agree to answer this patient Consultation #2: Spoke with Dr. Baugh who recommends transfer Medical Decision Making - Medical Decision Making 62 male to the Emergency Deparyment for evaluation after fall unknown significant injury right knee pain and swelling. Patient does have tibial plateau fracture that knee an old right tibial fracture. Patient will be transferred for orthopedic trauma treatment. At this time we are unsure if patient is able to ambulate and walk at baseline or how he fell - Lab Data Result diagrams: 04/01/23 02:00 04/01/23 02:00 Lab Results 04/01/23 04/01/23 04/01/23 Range/Units 02:00 02:00 02:00 WBC 12.9 H (3.8-10.6) k/uL RBC 4.19 L (4.30-5.90) m/uL Hgb 13.0 (13.0-17.5) gm/dL Hct 38.9 L (39.0-53.0) % MCV 92.8 (80.0-100.0) fL MCH 31.0 (25.0-35.0) pg MCHC 33.4 (31.0-37.0) g/dL RDW 13.1 (11.5-15.5) % Plt Count 74 L (150-450) k/uL MPV 11.3 Neutrophils % 80 % Lymphocytes % 10 % Monocytes % 8 % Eosinophils % 1 % Basophils % 0 % Neutrophils # 10.3 H (1.3-7.7) k/uL Lymphocytes # 1.3 (1.0-4.8) k/uL Monocytes # 1.0 (0-1.0) k/uL Eosinophils # 0.1 (0-0.7) k/uL Basophils # 0.1 (0-0.2) k/uL Sodium 133 L (137-145) mmol/L Potassium 5.1 (3.5-5.1) mmol/L Chloride 98 (98-107) mmol/L Carbon Dioxide 17 L (22-30) mmol/L Anion Gap 18 mmol/L BUN 13 (9-20) mg/dL Creatinine 0.79 (0.66-1.25) mg/dL Est GFR (CKD-EPI)AfAm >90 (>60 ml/min/1.73 sqM) Est GFR (CKD-EPI)NonAf >90 (>60 ml/min/1.73 sqM) Glucose 91 (74-99) mg/dL Calcium 9.0 (8.4-10.2) mg/dL Phosphorus 4.8 H (2.5-4.5) mg/dL Magnesium 2.2 (1.6-2.3) mg/dL Total Bilirubin 0.7 (0.2-1.3) mg/dL AST 37 (17-59) U/L ALT 21 (4-49) U/L Alkaline Phosphatase 100 (38-126) U/L Troponin I <0.012 (0.000-0.034) ng/mL Total Protein 7.7 (6.3-8.2) g/dL Albumin 4.0 (3.5-5.0) g/dL - Radiology Data Radiology results: report reviewed (X-ray right knee positive or plateau fracture), image reviewed Disposition Clinical Impression: Fall, Fracture of right tibial plateau Disposition: OTHER INSTITUTION NOT DEFINED Condition: Fair Is patient prescribed a controlled substance at d/c from ED?: No Referrals: Fátima Velarde DO [Primary Care Provider] - 1-2 days Time of Disposition: 01:10 - Out of Hospital Transfer - Req. Specs Out of Hospital Transfer - Requested Specifics: Other Emergency Center ([facility])
--- NOTE | 2023-04-01 00:32 | XR ---
EXAM: XR Right Knee, 3 Views CLINICAL HISTORY: ITS.REASON XR Reason: fall TECHNIQUE: Three views of the right knee. COMPARISON: 03/12/2018 FINDINGS: Bones/joints: Comminuted transverse right proximal tibia diametaphyseal fracture with mild angulation. Transverse fracture of the proximal fibular metaphysis. No intra-articular extension. Soft tissues: No joint effusion. Prominent vascular calcifications. IMPRESSION: 1. Comminuted transverse right proximal tibia diametaphyseal fracture with mild angulation. 2. Transverse fracture of the proximal fibular metaphysis.
[2023-04-01] MEDS ORDERED: SODIUM CHLORIDE 0.9% 1,000 ML IV STA (01:07)
[2023-04-01] MEDS ORDERED: SODIUM CHLORIDE 0.9% 500 ML 500 ML IV STA (01:07)
[2023-04-01] MEDS ORDERED: MORPHINE SULFATE 4 MG/ML SYRINGE IV STA (01:07)
[2023-04-01 02:50] LABS: Basophils # (A) 0.1 k/uL (0-0.2); Basophils % (A) 0 %; Eosinophils # (A) 0.1 k/uL (0-0.7); Eosinophils % (A) 1 %; HCT 38.9 % (39.0-53.0); Lymphocytes # (A) 1.3 k/uL (1.0-4.8); Lymphocytes % (A) 10 %; MCHC 33.4 g/dL (31.0-37.0); MCV 92.8 fL (80.0-100.0); Mean Platelet Volume 11.3; Monocytes % (A) 8 %; Neutrophils # (A) 10.3 k/uL (1.3-7.7); Neutrophils % (A) 80 %; Platelet Count 74 k/uL (150-450); RBC 4.19 m/uL (4.30-5.90); RDW 13.1 % (11.5-15.5); WBC 12.9 k/uL (3.8-10.6)
[2023-04-01 02:56] LABS: ALT 21 U/L (4-49); AST 37 U/L (17-59); African American GFR (CKD) >90 (>60 ml/min/1.73 sqM); Alkaline Phosphatase 100 U/L (38-126); Anion Gap 18 mmol/L; Blood Urea Nitrogen 13 mg/dL (9-20); Carbon Dioxide 17 mmol/L (22-30); Chloride 98 mmol/L (98-107); Glucose 91 mg/dL (74-99); Magnesium 2.2 mg/dL (1.6-2.3); Non-African American GFR(CKD) >90 (>60 ml/min/1.73 sqM); Potassium 5.1 mmol/L (3.5-5.1); Sodium 133 mmol/L (137-145); Total Bilirubin 0.7 mg/dL (0.2-1.3); Total Protein 7.7 g/dL (6.3-8.2)
[2023-04-01 03:25] LABS: Phosphorus 4.8 mg/dL (2.5-4.5)
== END 2023-04-01 02:20 | disposition other institution (70) ==
LOC: EC 21:43
DX: S82.141A Displaced bicondylar fracture of right tibia, initial encounter for closed fracture (principal); S82.831A Other fracture of upper and lower end of right fibula, initial encounter for closed fracture; J44.9 Chronic obstructive pulmonary disease, unspecified; I25.2 Old myocardial infarction; G40.909 Epilepsy, unspecified, not intractable, without status epilepticus; F41.9 Anxiety disorder, unspecified; F32.A Depression, unspecified; F17.210 Nicotine dependence, cigarettes, uncomplicated; K21.9 Gastro-esophageal reflux disease without esophagitis; Z79.82 Long term (current) use of aspirin; Z79.899 Other long term (current) drug therapy; W01.0XXA Fall on same level from slipping, tripping and stumbling without subsequent striking against object, initial encounter; Y92.009 Unspecified place in unspecified non-institutional (private) residence as the place of occurrence of the external cause
CPT/HCPCS: 36415; 80053; 83735; 84100; 84484; 85025; 73562; 99285; 96374; J2270

== ENCOUNTER 2023-09-01 15:49 | Observation (INO) | payer MEDICARE, OTHER ==
--- NOTE | 2023-09-01 16:11 | ED ---
Recheck HPI - General Source: patient, RN notes reviewed Mode of arrival: ambulatory Limitations: no limitations <Kate Bentley - Last Filed: 09/01/23 16:10> - General Source: patient, RN notes reviewed Mode of arrival: ambulatory Limitations: no limitations <Lucho Andino - Last Filed: 09/01/23 17:56> - General Chief Complaint: Recheck/Abnormal Lab/Rx Stated Complaint: feed tube replacement bleeding Time Seen by Provider: 09/01/23 16:10 - History of Present Illness Initial Comments: Patient is a 63-year-old male presented ER with a chief complaint of PEG tube malfunction. Patient states it broke earlier today. Patient has had tube for 7 years. Patient denies any other complaints. (Kate Bentley) Patient is a pleasant 63-year-old male presenting to the emergency department concerned with broken PEG tube. Incident occurred today. Patient states she has had tube for 2 years, which differs from the statement above. Patient states that has been leaking and is uncomfortable. Otherwise no concerns or palpitations. Patient does have history of trach and PEG following oral cancer. (Lucho Andino) - Related Data Home Medications Medication Instructions Recorded Confirmed Cyanocobalamin [Vitamin B-12] 500 mcg PEG/G-TUBE DAILY 09/15/20 02/01/23 Aspirin EC [Ecotrin Low Dose] 81 mg PEG/G-TUBE DAILY 02/08/21 02/01/23 Amitriptyline HCl [Elavil] 25 mg PEG/G-TUBE HS 03/22/22 02/01/23 Baclofen [Lioresal] 10 mg PEG/G-TUBE TID 03/22/22 02/01/23 Ipratropium-Albuterol Nebulize 3 ml INHALATION RT-Q6H PRN 03/22/22 02/01/23 [Duoneb 0.5 mg-3 mg/3 ml Soln] Levothyroxine Sodium 25 mcg PEG/G-TUBE DAILY 03/22/22 02/01/23 Sertraline [Zoloft] 25 mg PEG/G-TUBE DAILY 03/22/22 02/01/23 busPIRone HCL 5 mg PEG/G-TUBE BID 03/22/22 02/01/23 lamoTRIgine [LaMICtal] 25 mg PEG/G-TUBE BID 03/22/22 02/01/23 Metoprolol Succinate [Toprol XL] 25 mg PEG/G-TUBE BID 08/27/22 02/01/23 Pantoprazole Sodium [Protonix] 20 mg PEG/G-TUBE DAILY 08/27/22 02/01/23 Thiamine [Vitamin B-1] 100 mg PEG/G-TUBE DAILY 08/27/22 02/01/23 Midodrine [ProAmatine] 5 mg PEG/G-TUBE PC-BID 02/01/23 02/01/23 traMADol HCl [Ultram] 50 mg PEG/G-TUBE Q6HR PRN 02/01/23 02/01/23 Previous Rx's Medication Instructions Recorded Spironolactone [Aldactone] 25 mg PEG/G-TUBE DAILY #30 tab 03/28/22 lisinopriL [Zestril] 2.5 mg PEG/G-TUBE DAILY #30 tab 03/28/22 Sodium Chloride Tab 1 gm PEG/G-TUBE DAILY #30 tab 05/02/22 Amoxic-Pot Clav 875-125Mg 1 each PO Q12HR 4 Days #8 tab 02/04/23 [Augmentin 875-125] predniSONE [Deltasone] 40 mg PO DAILY #8 tab 02/04/23 Allergies Allergy/AdvReac Type Severity Reaction Status Date / Time No Known Allergies Allergy Verified 09/01/23 16:07 Review of Systems ROS Other: All systems not noted in ROS Statement are negative. <Kate Bentley - Last Filed: 09/01/23 16:10> ROS Other: All systems not noted in ROS Statement are negative. Constitutional: Denies: fever Eyes: Denies: eye pain ENT: Denies: ear pain Respiratory: Denies: cough Cardiovascular: Denies: chest pain <Lucho Andino - Last Filed: 09/01/23 17:56> ROS Statement: Those systems with pertinent positive or pertinent negative responses have been documented in the HPI. Past Medical History Past Medical History: Cancer, COPD, GERD/Reflux, Myocardial Infarction (MD), Pneumonia, Seizure Disorder Additional Past Medical History / Comment(s): 07/30/20 fall with impacted R hip fracture/tracheal bronchitis, hemoptysis, pulmonary nodules. 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 Last chemo/radiation in 2016. fell in August 2022, fractured leg and was transferred to [place] per patient Last Myocardial Infarction Date:: 2014 History of Any Multi-Drug Resistant Organisms: None Reported Past Surgical History: Heart Catheterization Additional Past Surgical History / Comment(s): Oral surgery with resection floor of mouth/tongue/mandible and bilateral neck resection with skin graft taken from L upper arm at [facility], tracheostomy, peg tube Past Anesthesia/Blood Transfusion Reactions: No Reported Reaction Additional Past Anesthesia/Blood Transfusion Reaction / Comment(s): adopted - no family hx Past Psychological History: Anxiety, Depression Smoking Status: Current every day smoker Past Alcohol Use History: Daily, Heavy Past Drug Use History: Marijuana - Past Family History Mother Family Medical History: Unable to Obtain Additional Family Medical History / Comment(s): pt is adopted <Kate Bentley - Last Filed: 09/01/23 16:10> General Exam Limitations: no limitations <Kate Bentley - Last Filed: 09/01/23 16:10> Limitations: no limitations General appearance: alert, in no apparent distress Head exam: Present: normocephalic Neck exam: Present: normal inspection Respiratory exam: Present: normal lung sounds bilaterally Cardiovascular Exam: Present: regular rate, normal rhythm GI/Abdominal exam: Present: soft, other (Broken PEG tube visualized). Absent: tenderness Extremities exam: Present: normal inspection Neurological exam: Present: alert Psychiatric exam: Present: normal affect, normal mood Skin exam: Present: normal color <Lucho Andino - Last Filed: 09/01/23 17:56> - General Exam Comments Initial Comments: Visual Physical Exam Vital signs reviewed General: Well-appearing, nontoxic, no acute distress. Head: Normocephalic, atraumatic Eyes: PERRLA, EOMI ENT: Airway patent Chest: Nonlabored breathing Skin: No visual rash, normal skin tone Neuro: Alert and oriented 3 Musculoskeletal: No gross abnormalities (Kate Bentley) Course Vital Signs 09/01/23 16:00 Temperature 98.2 F Pulse Rate 123 H Respiratory 24 Rate Blood Pressure 111/66 O2 Sat by Pulse 98 Oximetry Procedures <uLcho Andino - Last Filed: 09/01/23 17:56> - Procedures Initial comment: I did have the tube with forceps and unable to pull this out. Patient was started to experience discomfort and this was discontinued. Remaining tube which was approximately 1 cm is clamped using hemostats to prevent any further expulsion of gastric contents onto the skin. (Lucho Andino) Medical Decision Making <Kate Bentley - Last Filed: 09/01/23 16:10> <Lucho Andino - Last Filed: 09/01/23 17:56> - Medical Decision Making I performed the quick note portion of the exam. Electronically signed by Kate Bentley PA-C (Kate Bentley) Was pt. sent in by a medical professional or institution (GILBERTO Whitman, REHAB THERAPIST, urgent care, hospital, or usp...) When possible be specific @ -No Did you speak to anyone other than the patient for history (EMS, parent, family, police, friend...)? What history was obtained from this source @ -No Did you review nursing and triage notes (agree or disagree)? Why? @ -I reviewed and agree with nursing and triage notes Were old charts reviewed (outside hosp., previous admission, EMS record, old EKG, old radiological studies, urgent care reports/EKG's, usp records)? Report findings @ -Previous admissions reviewed and PEG tube placement was done by Dr. Pace Differential Diagnosis (chest pain, altered mental status, abdominal pain women, abdominal pain men, vaginal bleeding, weakness, fever, dyspnea, syncope, headache, dizziness, GI bleed, back pain, seizure, CVA, palpatations, mental health, musculoskeletal)? @ -Differential Abdominal Pain Men: Appendicitis, cholecystitis, diverticulosis, ischemic bowel, pancreatitis, hepatitis, UTI, gastroenteritis, AAA, incarcerated hernia, bowel obstruction, constipation, inflammatory bowel, hepatitis, peptic ulcer disease, splenic infarction, perforated viscus, testicular torsion, this is not meant to be an all-inclusive list EKG interpreted by me (3pts min.). @ -As above X-rays interpreted by me (1pt min.). @ -None done CT interpreted by me (1pt min.). @ -None done U/S interpreted by me (1pt. min.). @ -None done What testing was considered but not performed or refused? (CT, X-rays, U/S, labs)? Why? @ -None What meds were considered but not given or refused? Why? @ -None Did you discuss the management of the patient with other professionals (professionals i.e. , PA, REHAB THERAPIST, lab, RT, psych nurse, social research assistant, clothing supervisor, teacher, aerospace engineer officer armament, lead case manager)? Give summary @ -Case was discussed with Dr. Bull who will consult on patient. Case also discussed with practitioner Cady Segura, who will admit covering Dr. Denis, who admits for Dr. Velarde with Dr. Hilario is not available. Was smoking cessation discussed for >3mins.? @ -No Was critical care preformed (if so, how long)? @ -No Were there social determinants of health that impacted care today? How? ( Homelessness, low income, unemployed, alcoholism, drug addiction, transportation, low edu. Level, literacy, decrease access to med. care, group home, rehab)? @ -No Was there de-escalation of care discussed even if they declined (Discuss DNR or withdrawal of care, Hospice)? DNR status @ -No What co-morbidities impacted this encounter? (DM, HTN, Smoking, COPD, CAD, Cancer, CVA, ARF, Chemo, Hep., AIDS, mental health diagnosis, sleep apnea, morbid obesity)? @ -None Was patient admitted / discharged? Hospital course, mention meds given and route, prescriptions, significant lab abnormalities, going to OR and other pertinent info. @ -Patient will be admitted and nothing by mouth and IV fluids. Admission orders written. Undiagnosed new problem with uncertain prognosis? @ -No Drug Therapy requiring intensive monitoring for toxicity (Heparin, Nitro, Insulin, Cardizem)? @ -No Were any procedures done? @ -No Diagnosis/symptom? @ -PEG tube malfunction, dysphasia Acute, or Chronic, or Acute on Chronic? @ -Acute, chronic Uncomplicated (without systemic symptoms) or Complicated (systemic symptoms)? @ -default Side effects of treatment? @ -No Exacerbation, Progression, or Severe Exacerbation? @ -No Poses a threat to life or bodily function? How? (Chest pain, USA, MD, pneumonia, PE, COPD, DKA, ARF, appy, cholecystitis, CVA, Diverticulitis, Homicidal, Suicidal, threat to staff... and all critical care pts) @ -No (Lucho Andino) Disposition <Kate Bentley - Last Filed: 09/01/23 16:10> Is patient prescribed a controlled substance at d/c from ED?: No Time of Disposition: 17:56 <Lucho Andino - Last Filed: 09/01/23 17:56> Clinical Impression: PEG tube malfunction Disposition: ADMITTED IP TO THIS HOSP Referrals: Fátima Velarde DO [Primary Care Provider] - 1-2 days
[2023-09-01] MEDS ORDERED: ONDANSETRON 4 MG/2 ML VIAL IVP PRN (17:56)
[2023-09-01] MEDS ORDERED: NALOXONE 0.4 MG/ML 1 ML VIAL IV PRN (17:56)
[2023-09-01 18:51] LABS: Anisocytosis Slight; Basophils # (A) 0.1 k/uL (0-0.2); Basophils % (A) 1 %; Eosinophils # (A) 0.1 k/uL (0-0.7); Eosinophils % (A) 1 %; HCT 30.2 % (39.0-53.0); HGB 10.1 gm/dL (13.0-17.5); Hypochromasia Slight; Lymphocytes % (A) 10 %; MCH 26.4 pg (25.0-35.0); MCHC 33.6 g/dL (31.0-37.0); MCV 78.5 fL (80.0-100.0); Mean Platelet Volume 8.3; Microcytosis Slight; Monocytes # (A) 0.7 k/uL (0-1.0); Monocytes % (A) 8 %; Neutrophils # (A) 7.7 k/uL (1.3-7.7); Neutrophils % (A) 78 %; Platelet Count 172 k/uL (150-450); RBC 3.84 m/uL (4.30-5.90); RDW 16.5 % (11.5-15.5); WBC 9.8 k/uL (3.8-10.6)
[2023-09-01 18:57] LABS: ALT 14 U/L (4-49); AST 22 U/L (17-59); African American GFR (CKD) >90 (>60 ml/min/1.73 sqM); Albumin 3.7 g/dL (3.5-5.0); Alkaline Phosphatase 106 U/L (38-126); Anion Gap 11 mmol/L; Blood Urea Nitrogen 18 mg/dL (9-20); Calcium 9.1 mg/dL (8.4-10.2); Carbon Dioxide 26 mmol/L (22-30); Chloride 84 mmol/L (98-107); Glucose 98 mg/dL (74-99); Non-African American GFR(CKD) >90 (>60 ml/min/1.73 sqM); Potassium 4.5 mmol/L (3.5-5.1); Sodium 121 mmol/L (137-145); Total Bilirubin 0.4 mg/dL (0.2-1.3); Total Protein 8.5 g/dL (6.3-8.2)
[2023-09-01] MEDS: SODIUM CHLORIDE 0.9% 1,000 ML IV SCH (19:03)
[2023-09-01] MEDS: MORPHINE SULFATE 4 MG/ML SYRINGE IV PRN (22:20)
[2023-09-02] MEDS: MORPHINE SULFATE 4 MG/ML SYRINGE IV PRN ×2 (02:52→08:07)
[2023-09-02] MEDS: SODIUM CHLORIDE 0.9% 1,000 ML IV SCH ×3 (05:50→17:54)
[2023-09-02] MEDS ORDERED: PANTOPRAZOLE 40 MG/10 ML VIAL IV SCH (09:00)
[2023-09-02] MEDS ORDERED: ACETAMINOPHEN IV (For NPO) 1,000 MG in EMPTY BAG 1 BAG IVPB PRN (09:25)
[2023-09-02 09:28] LABS: African American GFR (CKD) >90 (>60 ml/min/1.73 sqM); Anion Gap 12 mmol/L; Blood Urea Nitrogen 12 mg/dL (9-20); Calcium 9.1 mg/dL (8.4-10.2); Carbon Dioxide 24 mmol/L (22-30); Chloride 91 mmol/L (98-107); Glucose 95 mg/dL (74-99); Non-African American GFR(CKD) >90 (>60 ml/min/1.73 sqM); Potassium 4.7 mmol/L (3.5-5.1); Sodium 127 mmol/L (137-145)
--- NOTE | 2023-09-02 11:47 | P.GSCN ---
History of Present Illness Consult date: 09/02/23 Reason for Consult: PEG dysfunction History of present illness: Patient is a 63-year-old male with a past medical history of trach and PEG prese nts with PEG tube dysfunction. Per patient PEG tube was inadvertently fractured prompting his presentation to [facility] emergency department. He states that since his PEG tube placement, which was originally was performed possibly 7 years ago he has had multiple prior PEG tube exchanges, stating that his last PEG tube exchanges approximately 1 year prior. Denies any abdominal pain. No nausea or vomiting. No drainage from around the PEG tube site. No fevers or chills. No shortness of breath or chest pain. Tolerating PEG tube feed at goals without issue prior to PEG tube fracture. Admits to bowel movements and flatus. No melena or hematochezia. Upon presentation to [facility] emergency department attempt was taken place to remove the distal end of the fracture PEG tube, was unsuccessful per emergency staff. Gen. surgery consulted for further evaluation. Review of Systems Negative Except for as stated above Past Medical History Past Medical History: Cancer, COPD, GERD/Reflux, Myocardial Infarction (CT), Pneumonia, Seizure Disorder Additional Past Medical History / Comment(s): 07/30/20 fall with impacted R hip fracture/tracheal bronchitis, hemoptysis, pulmonary nodules. 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 Last chemo/radiation in 2016. fell in August 2022, fractured leg and was transferred to [place] per patient Last Myocardial Infarction Date:: 2014 History of Any Multi-Drug Resistant Organisms: None Reported Past Surgical History: Heart Catheterization Additional Past Surgical History / Comment(s): Oral surgery with resection floor of mouth/tongue/mandible and bilateral neck resection with skin graft taken from L upper arm at [facility], tracheostomy, peg tube Past Anesthesia/Blood Transfusion Reactions: No Reported Reaction Additional Past Anesthesia/Blood Transfusion Reaction / Comm: adopted - no family hx Past Psychological History: Anxiety, Depression Additional Psychological History / Comment(s): Pt resides with his spouse. He states he has home care thru [facility]. He uses a walker to ambulate. Smoking Status: Current every day smoker Past Alcohol Use History: Daily, Heavy Additional Past Alcohol Use History / Comment(s): Pt started smoking in 1977 and is a 1/2 ppd smoker. Pt states he now has a beer occasionally thru peg tube. Past Drug Use History: Marijuana Additional Drug Use History / Comment(s): Pt uses marijuana rarely. - Past Family History Mother Family Medical History: Unable to Obtain Additional Family Medical History / Comment(s): pt is adopted Medications and Allergies Home Medications Medication Instructions Recorded Confirmed Type Amitriptyline HCl [Elavil] 25 mg PEG/G-TUBE HS 03/22/22 09/01/23 History Baclofen [Lioresal] 10 mg PEG/G-TUBE TID 03/22/22 09/01/23 History Levothyroxine Sodium 25 mcg PEG/G-TUBE DAILY 03/22/22 09/01/23 History busPIRone HCL 5 mg PEG/G-TUBE BID 03/22/22 09/01/23 History lamoTRIgine [LaMICtal] 25 mg PEG/G-TUBE BID 03/22/22 09/01/23 History Spironolactone [Aldactone] 25 mg PEG/G-TUBE DAILY #30 tab 03/28/22 09/01/23 Rx lisinopriL [Zestril] 2.5 mg PEG/G-TUBE DAILY #30 tab 03/28/22 09/01/23 Rx Sodium Chloride Tab 1 gm PEG/G-TUBE DAILY #30 tab 05/02/22 09/01/23 Rx Pantoprazole Sodium [Protonix] 20 mg PEG/G-TUBE DAILY 08/27/22 09/01/23 History Midodrine [ProAmatine] 5 mg PEG/G-TUBE TID 02/01/23 09/01/23 History traMADol HCl [Ultram] 50 mg PEG/G-TUBE Q6HR 02/01/23 09/01/23 History Famotidine [Pepcid] 20 mg PEG/G-TUBE DAILY 09/01/23 09/01/23 History Gabapentin 300 mg PEG/G-TUBE TID 09/01/23 09/01/23 History HYDROcodone/APAP 5-325MG [[place] 1 tab PEG/G-TUBE BID 09/01/23 09/01/23 History 5-325] Ibuprofen [Motrin] 800 mg PEG/G-TUBE TID 09/01/23 09/01/23 History Latanoprost [Latanoprost 0.005%] 1 drop BOTH EYES HS 09/01/23 09/01/23 History Metoprolol Succinate [[place]sp[place] 25 mg PEG/G-TUBE BID 09/01/23 09/01/23 History Sprinkle] Prochlorperazine [Compazine] 10 mg PEG/G-TUBE DAILY 09/01/23 09/01/23 History Allergies Allergy/AdvReac Type Severity Reaction Status Date / Time No Known Allergies Allergy Verified 09/01/23 18:38 Surgical - Exam Vital Signs Temp Pulse Resp BP Pulse Ox 98.2 F 123 H 24 111/66 98 09/01/23 16:00 09/01/23 16:00 09/01/23 16:00 09/01/23 16:00 09/01/23 16:00 Gen: AxO, NAD Pulm: non-labored respirations; Tracheostomy C/D/I, minimal secretions seen Abd: soft, non-tender, minimally distended, no guarding/rebound/rigidity PEG: minimal surrounding skin erythema around PEG site. No purulence seen. Remainder of PEG removed at bedside without issue. 18F turcios catheter placed in prior PEG insertion site without issue Extrem: no edema seen Results - Labs 09/01/23 18:33 09/02/23 07:30 Abnormal Lab Results - Last 24 Hours (Table) 09/01/23 09/01/23 09/02/23 Range/Units 18:33 18:33 07:30 RBC 3.84 L (4.30-5.90) m/uL Hgb 10.1 L (13.0-17.5) gm/dL Hct 30.2 L (39.0-53.0) % MCV 78.5 L (80.0-100.0) fL RDW 16.5 H (11.5-15.5) % Sodium 121 L 127 L (137-145) mmol/L Chloride 84 L 91 L (98-107) mmol/L Creatinine 0.61 L 0.59 L (0.66-1.25) mg/dL Total Protein 8.5 H (6.3-8.2) g/dL Diabetes panel 09/01/23 09/02/23 Range/Units 18:33 07:30 Sodium 121 L 127 L (137-145) mmol/L Potassium 4.5 4.7 (3.5-5.1) mmol/L Chloride 84 L 91 L (98-107) mmol/L Carbon Dioxide 26 24 (22-30) mmol/L BUN 18 12 (9-20) mg/dL Creatinine 0.61 L 0.59 L (0.66-1.25) mg/dL Glucose 98 95 (74-99) mg/dL Calcium 9.1 9.1 (8.4-10.2) mg/dL AST 22 (17-59) U/L ALT 14 (4-49) U/L Alkaline Phosphatase 106 (38-126) U/L Total Protein 8.5 H (6.3-8.2) g/dL Albumin 3.7 (3.5-5.0) g/dL Calcium panel 09/01/23 09/02/23 Range/Units 18:33 07:30 Calcium 9.1 9.1 (8.4-10.2) mg/dL Albumin 3.7 (3.5-5.0) g/dL Pituitary panel 09/01/23 09/02/23 Range/Units 18:33 07:30 Sodium 121 L 127 L (137-145) mmol/L Potassium 4.5 4.7 (3.5-5.1) mmol/L Chloride 84 L 91 L (98-107) mmol/L Carbon Dioxide 26 24 (22-30) mmol/L BUN 18 12 (9-20) mg/dL Creatinine 0.61 L 0.59 L (0.66-1.25) mg/dL Glucose 98 95 (74-99) mg/dL Calcium 9.1 9.1 (8.4-10.2) mg/dL Adrenal panel 09/01/23 09/02/23 Range/Units 18:33 07:30 Sodium 121 L 127 L (137-145) mmol/L Potassium 4.5 4.7 (3.5-5.1) mmol/L Chloride 84 L 91 L (98-107) mmol/L Carbon Dioxide 26 24 (22-30) mmol/L BUN 18 12 (9-20) mg/dL Creatinine 0.61 L 0.59 L (0.66-1.25) mg/dL Glucose 98 95 (74-99) mg/dL Calcium 9.1 9.1 (8.4-10.2) mg/dL Total Bilirubin 0.4 (0.2-1.3) mg/dL AST 22 (17-59) U/L ALT 14 (4-49) U/L Alkaline Phosphatase 106 (38-126) U/L Total Protein 8.5 H (6.3-8.2) g/dL Albumin 3.7 (3.5-5.0) g/dL Assessment and Plan Assessment: Patient is a 63 year old male who is s/p trach/peg who presents with fractured PEG tube Plan: -Distal end of fractured PEG removed at bedside; 18F turcios catheter replaced at bedside -Will replace turcios for PEG tube once available -Okay for TF as tolerated once turcios replaced for DAMON Peg tube -Care per primary -No acute surgical intervention Blake Shearer MD General Surgery
[2023-09-02] MEDS: MORPHINE SULFATE 2 MG/ML SYRINGE IV PRN ×2 (13:03→17:50)
[2023-09-02 15:03] VITALS: TEMP 98.8
--- NOTE | 2023-09-02 15:37 | P.HPIM ---
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 Patient states his PEG tube has been leaking and uncomfortable. * Workup initiated in ER included CBC which were WBC of 9.8 hemoglobin 10.1 platelet count of 172 serum chemistry obtained showed sodium 121 potassium 4.5 chloride 94 BU and 18 creatinine 0.61 * Patient was made nothing by mouth and general surgery team was consulted for PEG tube malfunction * Patient was noted to have acute hyponatremia and chronic hypernatremia and was started on fluid with plan for serial electrolyte check REVIEW OF SYSTEMS: PEG tube malfunction CONSTITUTIONAL: No fever, no malaise, no fatigue. HEENT: No recent visual problems or hearing problems. Denied any sore throat. CARDIOVASCULAR: No chest pain, orthopnea, PND, no palpitations, no syncope. PULMONARY: No shortness of breath, no cough, no hemoptysis. GASTROINTESTINAL: Abdominal discomfort NEUROLOGICAL: No headaches, no weakness, no numbness. HEMATOLOGICAL: Denies any bleeding or petechiae. GENITOURINARY: Denies any burning micturition, frequency, or urgency. MUSCULOSKELETAL/RHEUMATOLOGICAL: Denies any joint pain, swelling, or any muscle pain. ENDOCRINE: Denies any polyuria or polydipsia. PHYSICAL EXAMINATION: GENERAL: The patient is alert and oriented x3, chronically ill appearance, underweight HEENT: Pupils are round and equally reacting to light. EOMI. CARDIOVASCULAR: S1 and S2 present. No murmurs, rubs, or gallops. PULMONARY: Chest is clear to auscultation, no wheezing or crackles. ABDOMEN: Soft, nontender, PEG tube site bandaged MUSCULOSKELETAL: No joint swelling or deformity. EXTREMITIES: No cyanosis, clubbing, or pedal edema. NEUROLOGICAL: Gross neurological examination did not reveal any focal deficits. Past Medical History Past Medical History: Cancer, COPD, GERD/Reflux, Myocardial Infarction (SD), Pneumonia, Seizure Disorder Additional Past Medical History / Comment(s): 07/30/20 fall with impacted R hip fracture/tracheal bronchitis, hemoptysis, pulmonary nodules. 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 Last chemo/radiation in 2016. fell in August 2022, fractured leg and was transferred to [facility] per patient Last Myocardial Infarction Date:: 2014 History of Any Multi-Drug Resistant Organisms: None Reported Past Surgical History: Heart Catheterization Additional Past Surgical History / Comment(s): Oral surgery with resection floor of mouth/tongue/mandible and bilateral neck resection with skin graft taken from L upper arm at [facility], tracheostomy, peg tube Past Anesthesia/Blood Transfusion Reactions: No Reported Reaction Additional Past Anesthesia/Blood Transfusion Reaction / Comment(s): adopted - no family hx Past Psychological History: Anxiety, Depression Additional Psychological History / Comment(s): Pt resides with his spouse. He states he has home care thru [facility]. He uses a walker to ambulate. Smoking Status: Current every day smoker Past Alcohol Use History: Daily, Heavy Additional Past Alcohol Use History / Comment(s): Pt started smoking in 1977 and is a 1/2 ppd smoker. Pt states he now has a beer occasionally thru peg tube. Past Drug Use History: Marijuana Additional Drug Use History / Comment(s): Pt uses marijuana rarely. - Past Family History Mother Family Medical History: Unable to Obtain Additional Family Medical History / Comment(s): pt is adopted Medications and Allergies Home Medications Medication Instructions Recorded Confirmed Type Amitriptyline HCl [Elavil] 25 mg PEG/G-TUBE HS 03/22/22 09/01/23 History Baclofen [Lioresal] 10 mg PEG/G-TUBE TID 03/22/22 09/01/23 History Levothyroxine Sodium 25 mcg PEG/G-TUBE DAILY 03/22/22 09/01/23 History busPIRone HCL 5 mg PEG/G-TUBE BID 03/22/22 09/01/23 History lamoTRIgine [LaMICtal] 25 mg PEG/G-TUBE BID 03/22/22 09/01/23 History Spironolactone [Aldactone] 25 mg PEG/G-TUBE DAILY #30 tab 03/28/22 09/01/23 Rx lisinopriL [Zestril] 2.5 mg PEG/G-TUBE DAILY #30 tab 03/28/22 09/01/23 Rx Sodium Chloride Tab 1 gm PEG/G-TUBE DAILY #30 tab 05/02/22 09/01/23 Rx Pantoprazole Sodium [Protonix] 20 mg PEG/G-TUBE DAILY 08/27/22 09/01/23 History Midodrine [ProAmatine] 5 mg PEG/G-TUBE TID 02/01/23 09/01/23 History traMADol HCl [Ultram] 50 mg PEG/G-TUBE Q6HR 02/01/23 09/01/23 History Famotidine [Pepcid] 20 mg PEG/G-TUBE DAILY 09/01/23 09/01/23 History Gabapentin 300 mg PEG/G-TUBE TID 09/01/23 09/01/23 History HYDROcodone/APAP 5-325MG [[place] 1 tab PEG/G-TUBE BID 09/01/23 09/01/23 History 5-325] Ibuprofen [Motrin] 800 mg PEG/G-TUBE TID 09/01/23 09/01/23 History Latanoprost [Latanoprost 0.005%] 1 drop BOTH EYES HS 09/01/23 09/01/23 History Metoprolol Succinate [[place]sp[place] 25 mg PEG/G-TUBE BID 09/01/23 09/01/23 History Sprinkle] Prochlorperazine [Compazine] 10 mg PEG/G-TUBE DAILY 09/01/23 09/01/23 History Allergies Allergy/AdvReac Type Severity Reaction Status Date / Time No Known Allergies Allergy Verified 09/01/23 18:38 Physical Exam Vitals: Vital Signs Temp Pulse Pulse Resp BP BP Pulse Ox 09/02/23 07:25 98.5 F 120 H 17 103/61 95 09/02/23 02:00 98.3 F 114 H 18 130/66 97 09/01/23 22:50 97.5 F L 119 H 18 125/75 94 L 09/01/23 22:16 109 H 18 135/81 98 09/01/23 18:50 98 F 110 H 18 136/72 98 09/01/23 16:00 98.2 F 123 H 24 111/66 98 Intake and Output 01/12/24 01/13/24 01/13/24 22:59 06:59 14:59 Output Total 450 500 Balance -450 -500 Output: Urine 450 500 Other: Voiding Method Urinal Weight 77.111 kg 77.111 kg Results CBC & Chem 7: 09/01/23 18:33 09/02/23 07:30 Labs: Abnormal Lab Results - Last 24 Hours (Table) 09/01/23 09/01/23 Range/Units 18:33 18:33 RBC 3.84 L (4.30-5.90) m/uL Hgb 10.1 L (13.0-17.5) gm/dL Hct 30.2 L (39.0-53.0) % MCV 78.5 L (80.0-100.0) fL RDW 16.5 H (11.5-15.5) % Sodium 121 L (137-145) mmol/L Chloride 84 L (98-107) mmol/L Creatinine 0.61 L (0.66-1.25) mg/dL Total Protein 8.5 H (6.3-8.2) g/dL Thrombosis Risk Factor Assmnt - DVT/VTE Prophylaxis DVT/VTE Prophylaxis: Mechanical Prophylaxis ordered - Choose All That Apply Any of the Below Risk Factors Present?: Yes Each Factor Represents 1 point: Abnormal pulmonary function (COPD) Other Risk Factors: Yes Each Risk Factor Represents 2 Points: Age 61-74 years Other congenital or acquired thrombophilia - If yes, enter type in comment: No Thrombosis Risk Factor Assessment Total Risk Factor Score: 3 Thrombosis Risk Factor Assessment Level: Moderate Risk Assessment and Plan Assessment: Assessment and plan * Peg tube malfunction with history of dysphagia * History of squamous cell carcinoma oral cavity, status post trach and PEG * Acute on chronic hyponatremia * History of seizure disorder * History of COPD * Gastroesophageal reflux disease * Prior history of tobacco use * In regards to PEG tube malfunction, patient is nothing by mouth with request for surgery evaluation/ will try to change home meds to IV * In regards to acute on chronic hyponatremia continue patient on IV fluid, f ollow up on serial electrolyte panel * In regards to history of seizure disorder we'll review and reconsult home medication * In regards to history of oropharyngeal cancer maintain aspiration precautions * In regards to gastroesophageal reflux disease continue patient on protonix * CODE STATUS is full code
[2023-09-02] MEDS ORDERED: SODIUM CHLORIDE TAB 1 GM TAB PEG/G-TUBE SCH (15:45)
[2023-09-02] MEDS ORDERED: PANTOPRAZOLE 40 MG TABLET PO SCH (15:45)
[2023-09-02] MEDS ORDERED: GABAPENTIN 300 MG CAP PEG/G-TUBE SCH (16:00)
[2023-09-02] MEDS ORDERED: BACLOFEN 10 MG TAB PEG/G-TUBE SCH (16:00)
[2023-09-02] MEDS ORDERED: MIDODRINE 5 MG TAB PEG/G-TUBE SCH (16:00)
[2023-09-02 16:43] LABS: Potassium 4.9 mmol/L (3.5-5.1)
[2023-09-02] MEDS ORDERED: traMADol 50 MG TAB PEG/G-TUBE SCH (18:00)
--- NOTE | 2023-09-02 18:33 | P.DS ---
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 Patient states his PEG tube has been leaking and uncomfortable. 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 HEENT: No recent visual problems or hearing problems. Denied any sore throat. CARDIOVASCULAR: No chest pain, orthopnea, PND, no palpitations, no syncope. PULMONARY: No shortness of breath, no cough, no hemoptysis. GASTROINTESTINAL: Abdominal discomfort NEUROLOGICAL: No headaches, no weakness, no numbness. HEMATOLOGICAL: Denies any bleeding or petechiae. GENITOURINARY: Denies any burning micturition, frequency, or urgency. MUSCULOSKELETAL/RHEUMATOLOGICAL: Denies any joint pain, swelling, or any muscle pain. ENDOCRINE: Denies any polyuria or polydipsia. PHYSICAL EXAMINATION: GENERAL: The patient is alert and oriented x3, chronically ill appearance, underweight HEENT: Pupils are round and equally reacting to light. EOMI. CARDIOVASCULAR: S1 and S2 present. No murmurs, rubs, or gallops. PULMONARY: Chest is clear to auscultation, no wheezing or crackles. ABDOMEN: Soft, nontender, PEG tube site bandaged MUSCULOSKELETAL: No joint swelling or deformity. EXTREMITIES: No cyanosis, clubbing, or pedal edema. NEUROLOGICAL: Gross neurological examination did not reveal any focal deficits. Assessment: Peg tube malfunction with history of dysphagia * History of squamous cell carcinoma oral cavity, status post trach and PEG * Acute on chronic hyponatremia * History of seizure disorder * History of COPD * Gastroesophageal reflux disease * Prior history of tobacco use * In regards to PEG tube malfunction, surgery evaluation/ s/p replacement * In regards to acute on chronic hyponatremia given IV fluid, continue nacal tab * In regards to history of seizure disorder we'll review and reconsult home medication * In regards to history of oropharyngeal cancer maintain aspiration precautions * In regards to gastroesophageal reflux diseas continue home meds Plan - Discharge Summary Discharge Rx Participant: No New Discharge Prescriptions: Continue Baclofen [Lioresal] 10 mg PEG/G-TUBE TID Levothyroxine Sodium 25 mcg PEG/G-TUBE DAILY lamoTRIgine [LaMICtal] 25 mg PEG/G-TUBE BID Amitriptyline HCl [Elavil] 25 mg PEG/G-TUBE HS Sodium Chloride Tab 1 gm PEG/G-TUBE DAILY #30 tab Latanoprost [Latanoprost 0.005%] 1 drop BOTH EYES HS Metoprolol Succinate [[place] Sprinkle] 25 mg PEG/G-TUBE BID busPIRone HCL 5 mg PEG/G-TUBE BID Spironolactone [Aldactone] 25 mg PEG/G-TUBE DAILY #30 tab lisinopriL [Zestril] 2.5 mg PEG/G-TUBE DAILY #30 tab Pantoprazole Sodium [Protonix] 20 mg PEG/G-TUBE DAILY traMADol HCl [Ultram] 50 mg PEG/G-TUBE Q6HR Midodrine [ProAmatine] 5 mg PEG/G-TUBE TID Famotidine [Pepcid] 20 mg PEG/G-TUBE DAILY Gabapentin 300 mg PEG/G-TUBE TID HYDROcodone/APAP 5-325MG [[place] 5-325] 1 tab PEG/G-TUBE BID Ibuprofen [Motrin] 800 mg PEG/G-TUBE TID Prochlorperazine [Compazine] 10 mg PEG/G-TUBE DAILY Discharge Medication List Amitriptyline HCl [Elavil] 25 mg PEG/G-TUBE HS 03/22/22 [History] Baclofen [Lioresal] 10 mg PEG/G-TUBE TID 03/22/22 [History] Levothyroxine Sodium 25 mcg PEG/G-TUBE DAILY 03/22/22 [History] busPIRone HCL 5 mg PEG/G-TUBE BID 03/22/22 [History] lamoTRIgine [LaMICtal] 25 mg PEG/G-TUBE BID 03/22/22 [History] Spironolactone [Aldactone] 25 mg PEG/G-TUBE DAILY #30 tab 03/28/22 [Rx] lisinopriL [Zestril] 2.5 mg PEG/G-TUBE DAILY #30 tab 03/28/22 [Rx] Sodium Chloride Tab 1 gm PEG/G-TUBE DAILY #30 tab 05/02/22 [Rx] Pantoprazole Sodium [Protonix] 20 mg PEG/G-TUBE DAILY 08/27/22 [History] Midodrine [ProAmatine] 5 mg PEG/G-TUBE TID 02/01/23 [History] traMADol HCl [Ultram] 50 mg PEG/G-TUBE Q6HR 02/01/23 [History] Famotidine [Pepcid] 20 mg PEG/G-TUBE DAILY 09/01/23 [History] Gabapentin 300 mg PEG/G-TUBE TID 09/01/23 [History] HYDROcodone/APAP 5-325MG [[place] 5-325] 1 tab PEG/G-TUBE BID 09/01/23 [History] Ibuprofen [Motrin] 800 mg PEG/G-TUBE TID 09/01/23 [History] Latanoprost [Latanoprost 0.005%] 1 drop BOTH EYES HS 09/01/23 [History] Metoprolol Succinate [Kapspargo Sprinkle] 25 mg PEG/G-TUBE BID 09/01/23 [History] Prochlorperazine [Compazine] 10 mg PEG/G-TUBE DAILY 09/01/23 [History] Follow up Appointment(s)/Referral(s): Fátima Velarde DO [Primary Care Provider] - 1-2 days Discharge Disposition: HOME SELF-CARE
[2023-09-02 19:41] VITALS: BP 120/70; PULSE 105; RESP 16
[2023-09-02] MEDS ORDERED: lamoTRIgine 25 MG TAB PEG/G-TUBE SCH (21:00)
[2023-09-02] MEDS ORDERED: busPIRone HCl 5 MG TAB PEG/G-TUBE SCH (21:00)
[2023-09-02] MEDS ORDERED: METOPROLOL SUCCINATE 25 MG PEG/G-TUBE SCH (21:00)
[2023-09-02] MEDS ORDERED: LATANOPROST 0.005% OPHTH DROPS 2.5 ML BTL BOTH EYES SCH (21:00)
[2023-09-02] MEDS ORDERED: AMITRIPTYLINE HCL 25 MG TAB PEG/G-TUBE SCH (21:00)
[2023-09-03] MEDS ORDERED: LEVOTHYROXINE 25 MCG TAB PEG/G-TUBE SCH (06:30)
== END 2023-09-02 20:25 | disposition home or self-care (01) ==
LOC: EC 15:49 → 6NMEDSUR 17:56
PROVIDERS: ADMIT Hospitalist; ATTEND Hospitalist
DX: K94.23 Gastrostomy malfunction (principal); J44.9 Chronic obstructive pulmonary disease, unspecified; K21.9 Gastro-esophageal reflux disease without esophagitis; F32.A Depression, unspecified; F41.9 Anxiety disorder, unspecified; I25.2 Old myocardial infarction; I25.10 Atherosclerotic heart disease of native coronary artery without angina pectoris; I25.5 Ischemic cardiomyopathy; E87.1 Hypo-osmolality and hyponatremia; G40.909 Epilepsy, unspecified, not intractable, without status epilepticus; F17.200 Nicotine dependence, unspecified, uncomplicated; Z85.810 Personal history of malignant neoplasm of tongue; Z79.52 Long term (current) use of systemic steroids; Z79.82 Long term (current) use of aspirin; Z79.899 Other long term (current) drug therapy
CPT/HCPCS: 96376; 96361; 96375; 96374; 99284; 93005; 80051; 80053; 80048; 85025; G0378 ×2; J2270 ×3; C9113

== ENCOUNTER 2023-09-16 15:10 | Inpatient (IN) | payer MEDICARE, OTHER ==
--- NOTE | 2023-09-16 16:35 | XR ---
EXAMINATION TYPE: XR pelvis AP view DATE OF EXAM: 09/16/2023 COMPARISON: None HISTORY: Fall, injury TECHNIQUE: AP pelvis FINDINGS: Right hip prosthesis is present. There is degenerative change at the left hip. There is adwoa rowing of the left hip joint space. Symphysis pubis and sacroiliac joints are normal. Degenerative ch anges are within the lumbar spine. IMPRESSION: 1. Degenerative left hip changes. 2. No acute osseous abnormality.
[2023-09-16] MEDS: MORPHINE SULFATE 4 MG/ML SYRINGE IV STA ×2 (16:38→19:31)
--- NOTE | 2023-09-16 16:38 | XR ---
EXAMINATION TYPE: XR femur RT DATE OF EXAM: 09/16/2023 COMPARISON: None HISTORY: Fall, pain TECHNIQUE: 2 view right femur FINDINGS: No acute fracture is evident. Right hip prosthesis is present. No acute fracture or disloca tion is evident. Vascular calcification is present. Degenerative changes are at the knee. IMPRESSION: 1. No acute osseous abnormality right femur.
--- NOTE | 2023-09-16 16:40 | XR ---
EXAMINATION TYPE: XR tibia fibula RT DATE OF EXAM: 09/16/2023 COMPARISON: None HISTORY: Fall, pain TECHNIQUE: Right tibia and fibula are examined in 2 views. FINDINGS: Medullary corinne is within the tibia. No acute fracture or dislocation is evident. Degenerativ e joint changes are noted at the knee. Follow up exams can be performed 7-10 days may give trauma for continued pain. IMPRESSION: 1. No acute osseous abnormality right tibia and fibula
[2023-09-16 17:01] LABS: Anisocytosis Slight; Basophils # (A) 0.1 k/uL (0-0.2); Basophils % (A) 1 %; Eosinophils # (A) 0.2 k/uL (0-0.7); Eosinophils % (A) 2 %; HCT 27.9 % (39.0-53.0); HGB 9.1 gm/dL (13.0-17.5); Hypochromasia Slight; Lymphocytes # (A) 0.8 k/uL (1.0-4.8); Lymphocytes % (A) 8 %; MCH 26.4 pg (25.0-35.0); MCHC 32.5 g/dL (31.0-37.0); MCV 81.2 fL (80.0-100.0); Mean Platelet Volume 8.8; Monocytes # (A) 0.6 k/uL (0-1.0); Monocytes % (A) 6 %; Neutrophils # (A) 8.7 k/uL (1.3-7.7); Neutrophils % (A) 82 %; Platelet Count 216 k/uL (150-450); RBC 3.44 m/uL (4.30-5.90); RDW 16.4 % (11.5-15.5); WBC 10.6 k/uL (3.8-10.6)
[2023-09-16 17:16] LABS: ALT 21 U/L (4-49); AST 24 U/L (17-59); African American GFR (CKD) >90 (>60 ml/min/1.73 sqM); Alkaline Phosphatase 90 U/L (38-126); Anion Gap 9 mmol/L; Blood Urea Nitrogen 39 mg/dL (9-20); Calcium 9.6 mg/dL (8.4-10.2); Carbon Dioxide 26 mmol/L (22-30); Chloride 100 mmol/L (98-107); Glucose 116 mg/dL (74-99); Magnesium 1.9 mg/dL (1.6-2.3); Non-African American GFR(CKD) 84 (>60 ml/min/1.73 sqM); Potassium 5.5 mmol/L (3.5-5.1); Sodium 135 mmol/L (137-145); Total Bilirubin 0.4 mg/dL (0.2-1.3); Total Protein 8.7 g/dL (6.3-8.2)
[2023-09-16 18:26] LABS: Appearance,Urine Clear (Clear); Bilirubin,Urine Negative (Negative); Blood,Urine Negative (Negative); Color,Urine Yellow; Glucose,Urine (UA) Negative (Negative); Ketones,Urine Negative (Negative); Leukocyte Esterase,Urine Negative (Negative); Nitrite,Urine Negative (Negative); PH, Urine 7.5 (5.0-8.0); Protein,Urine Trace (Negative); Specific Gravity,Urine 1.019 (1.001-1.035); Urobilinogen,Urine <2.0 mg/dL (<2.0)
[2023-09-16] MEDS ORDERED: oxyCODONE-APAP 5-325MG 1 EACH TAB PO PRN (18:41)
[2023-09-16] MEDS: CLINDAMYCIN 300 MG in DEXTROSE 5% IN WATER 50 ML IVPB STA (19:42)
[2023-09-16] MEDS: SODIUM CHLORIDE 0.9% 500 ML 500 ML IV STA ×2 (19:43→21:51)
--- NOTE | 2023-09-16 20:05 | ED ---
Fall HPI - General Chief Complaint: Fall Stated Complaint: Fall Time Seen by Provider: 09/16/23 15:19 Source: patient, EMS Mode of arrival: EMS Limitations: physical limitation - History of Present Illness Initial Comments: This patient is a 63-year-old man brought to have evaluation after he had a fall at home. The patient does have poor mobility at baseline, but it was reported that he had been trying to get up and fell from his chair. The patient is complaining of pain to the right knee. The patient does have history of previous right tib-fib nail placed by Dr. Al at [facility]. EMS added that it appeared that the patient spends majority of time in the chair. The stated they were over half-dozen urine bottles adjacent to the chair. In addition there are stairs and the patient not able to navigate. On review of systems, patient complains of right mandible pain. He states that she is supposed to have the remaining teeth there extracted and states he has an upcoming appointment in early September. Patient has not noted fever or chills. The patient is having some tenderness along the mandible. In addition there is a area of eschar under the right mandible that the patient states is related to shaving accident that occurred in May. He states that the wound will not heal properly. MD Complaint: fall -: hour(s) Fall From: chair When Fall Occurred: 1-[address] [employer] [address] Fall Occurred: home Loss of Consciousness: none Prolonged Down Time?: unclear Symptoms Prior to Fall: none Location - Extremities: Right: Knee Severity: severe Associated Symptoms: denies - Related Data Home Medications Medication Instructions Recorded Confirmed Amitriptyline HCl [Elavil] 25 mg PEG/G-TUBE HS 03/22/22 09/16/23 Baclofen [Lioresal] 10 mg PEG/G-TUBE TID 03/22/22 09/16/23 Levothyroxine Sodium 25 mcg PEG/G-TUBE DAILY 03/22/22 09/16/23 busPIRone HCL 5 mg PEG/G-TUBE BID 03/22/22 09/16/23 lamoTRIgine [LaMICtal] 25 mg PEG/G-TUBE BID 03/22/22 09/16/23 Pantoprazole Sodium [Protonix] 20 mg PEG/G-TUBE DAILY 08/27/22 09/16/23 Midodrine [ProAmatine] 5 mg PEG/G-TUBE TID 02/01/23 09/16/23 Famotidine [Pepcid] 20 mg PEG/G-TUBE DAILY 09/01/23 09/16/23 Latanoprost [Latanoprost 0.005%] 1 drop BOTH EYES HS 09/01/23 09/16/23 Metoprolol Succinate [Kapspargo 25 mg PEG/G-TUBE BID 09/01/23 09/16/23 Sprinkle] Prochlorperazine [Compazine] 10 mg PEG/G-TUBE DAILY 09/01/23 09/16/23 Previous Rx's Medication Instructions Recorded Spironolactone [Aldactone] 25 mg PEG/G-TUBE DAILY #30 tab 03/28/22 lisinopriL [Zestril] 2.5 mg PEG/G-TUBE DAILY #30 tab 03/28/22 Sodium Chloride Tab 1 gm PEG/G-TUBE DAILY #30 tab 05/02/22 Amoxic-Pot Clav 400-57Mg/5Ml 10 ml PO Q12H #200 ml 09/20/23 [Augmentin 400-57 mg/5 ml Susp] Gabapentin 300 mg PEG/G-TUBE TID #9 cap 09/20/23 Ipratropium-Albuterol Nebulize 3 ml INHALATION RT-QID #120 each 09/20/23 [Duoneb 0.5 mg-3 mg/3 ml Soln] predniSONE 10 mg PEG/G-TUBE DIRECTED #30 09/20/23 tab traMADol HCl [Ultram] 50 mg PEG/G-TUBE Q6HR PRN #12 tab 09/20/23 Chlorhexidine Gluconate [Peridex] 15 ml MUCOUS MEM QID ml 09/26/23 guaiFENesin-DM 100-10MG/5ML 15 ml PEG/G-TUBE Q6HR ml 09/26/23 [Robitussin DM] Acetaminophen Tab [Tylenol] 1,000 mg PEG/G-TUBE Q6HR PRN tab 09/27/23 Psyllium Husk 100% [Metamucil 6 gm PO DAILY packet 09/27/23 Packet] Allergies Allergy/AdvReac Type Severity Reaction Status Date / Time No Known Allergies Allergy Verified 09/16/23 17:18 Review of Systems ROS Statement: Those systems with pertinent positive or pertinent negative responses have been documented in the HPI. ROS Other: All systems not noted in ROS Statement are negative. Constitutional: Reports: weakness (Chronic). Denies: fever, chills Eyes: Denies: vision change ENT: Reports: other (Right mandible pain) Respiratory: Denies: cough, dyspnea Cardiovascular: Denies: chest pain, edema, syncope Gastrointestinal: Denies: abdominal pain, vomiting, diarrhea Genitourinary: Denies: dysuria, hematuria Musculoskeletal: Reports: as per HPI, arthralgia Skin: Reports: lesions (Eschar right mandible). Denies: rash Neurological: Denies: headache, weakness Past Medical History Past Medical History: Cancer, COPD, GERD/Reflux, Myocardial Infarction ([place]), Pneumonia, Seizure Disorder Additional Past Medical History / Comment(s): 07/30/20 fall with impacted R hip fracture/tracheal bronchitis, hemoptysis, pulmonary nodules. 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 Last chemo/radiation in 2016. fell in August 2022, fractured leg and was transferred to [place] per patient Last Myocardial Infarction Date:: 2014 History of Any Multi-Drug Resistant Organisms: None Reported Past Surgical History: Heart Catheterization Additional Past Surgical History / Comment(s): Oral surgery with resection floor of mouth/tongue/mandible and bilateral neck resection with skin graft taken from L upper arm at [facility], tracheostomy, peg tube Past Anesthesia/Blood Transfusion Reactions: No Reported Reaction Additional Past Anesthesia/Blood Transfusion Reaction / Comment(s): adopted - no family hx Past Psychological History: Anxiety, Depression Smoking Status: Current every day smoker Past Alcohol Use History: Daily, Heavy Past Drug Use History: Marijuana - Past Family History Mother Family Medical History: Unable to Obtain Additional Family Medical History / Comment(s): pt is adopted General Exam Limitations: no limitations General appearance: alert, in no apparent distress, other (Poor hygiene) Head exam: Present: atraumatic, normocephalic Eye exam: Present: normal appearance. Absent: scleral icterus, conjunctival injection ENT exam: Present: mucous membranes dry, other (The patient does have some tenderness adjacent to right mandible. There is no obvious abscess. Poor dentition.) Neck exam: Present: other (There is tracheostomy present). Absent: tenderness Respiratory exam: Present: normal lung sounds bilaterally, wheezes. Absent: rales, rhonchi Cardiovascular Exam: Present: normal rhythm, normal heart sounds. Absent: systolic murmur, diastolic murmur, rubs, gallop GI/Abdominal exam: Present: soft. Absent: distended, tenderness, guarding, marcial ound, rigid, mass Extremities exam: Present: tenderness (The patient has tenderness overlying the right knee. There is small amount of swelling and what appears to be developing contusion), normal capillary refill. Absent: full ROM, pedal edema, calf tenderness Back exam: Absent: vertebral tenderness Neurological exam: Present: alert. Absent: motor sensory deficit Skin exam: Present: warm, dry, intact. Absent: rash Course Vital Signs 09/16/23 09/16/23 09/16/23 15:20 17:13 19:35 Temperature 97.8 F Pulse Rate 129 H Pulse Rate [ Left] Respiratory 24 Rate Blood Pressure 142/98 Blood Pressure [Left Arm] O2 Sat by Pulse 92 L Oximetry Fraction of 28 40 Inspired Oxygen (FIO2) 09/16/23 09/16/23 19:52 20:00 Temperature 97.7 F Pulse Rate 118 H Pulse Rate [ 131 H Left] Respiratory 22 21 Rate Blood Pressure 118/74 Blood Pressure 125/76 [Left Arm] O2 Sat by Pulse 96 93 L Oximetry Fraction of Inspired Oxygen (FIO2) Medical Decision Making - Medical Decision Making This patient is 63-year-old man with a fall that occurred this morning resulting in right knee pain and inability to weight on his right leg. The patient had x- ray from the pelvis down to the ankle but does not reveal acute fracture, as interpreted by myself. The patient's surgical hardware does appear to be intac t. The patient continues to have pain to the anterior aspect of the knee. The patient also does appear to have some dental infection and a little bit of swelling adjacent to the right mandible and therefore started on clindamycin for this. He does have upcoming appointment in early September to address this and it does not appear that the patient will need oral surgery at this admission Per the EMS report, the state that there is not a safe discharge location, the patient's dwelling has stairs which she will not be able to manage. She it is evident that he had not been out of his chair for an extended period of time. Given this patient will be admitted to arrange safe discharge location Was pt. sent in by a medical professional or institution (GILBERTO Whitman, SHIPPER RECEIVER, urgent care, hospital, or usp...) When possible be specific @ -[No] Did you speak to anyone other than the patient for history (EMS, parent, family, police, friend...)? What history was obtained from this source @ -[EMS gave history Did you review nursing and triage notes (agree or disagree)? Why? @ -[I reviewed and agree with nursing and triage notes] Were old charts reviewed (outside hosp., previous admission, EMS record, old EKG, old radiological studies, urgent care reports/EKG's, usp records)? Report findings @ -[No old charts were reviewed] Differential Diagnosis (chest pain, altered mental status, abdominal pain women, abdominal pain men, vaginal bleeding, weakness, fever, dyspnea, syncope, headache, dizziness, GI bleed, back pain, seizure, CVA, palpatations, mental health, musculoskeletal)? @ -[Differential Musculoskeletal Muscular strain, contusion, ligament sprain, fracture, arthritis, septic arthritis, bursitis, cellulitis, muscle spasm, nerve compression, DVT, arterial occlusion, herpes zoster, electrolyte abnormality, tumor.... This is not meant to be in all inclusive list EKG interpreted by me (3pts min.). @ -[As above] X-rays interpreted by me (1pt min.). @ -[I interpreted as above CT interpreted by me (1pt min.). @ -[None done] U/S interpreted by me (1pt. min.). @ -[None done] What testing was considered but not performed or refused? (CT, X-rays, U/S, labs)? Why? @ -[None] What meds were considered but not given or refused? Why? @ -[None] Did you discuss the management of the patient with other professionals (professionals i.e. GILBERTO Whitman, SHIPPER RECEIVER, lab, RT, psych nurse, director social service, country singer, teacher, bsa officer, housing case manager)? Give summary @ -[Case discussed with admitting physician and treatment recommendations are incorporated Was smoking cessation discussed for >3mins.? @ -[No] Was critical care preformed (if so, how long)? @ -[No] Were there social determinants of health that impacted care today? How? (Homelessness, low income, unemployed, alcoholism, drug addiction, transportation, low edu. Level, literacy, decrease access to med. care, residential, rehab)? @ -[No] Was there de-escalation of care discussed even if they declined (Discuss DNR or withdrawal of care, Hospice)? DNR status @ -[No] What co-morbidities impacted this encounter? (DM, HTN, Smoking, COPD, CAD, Cancer, CVA, ARF, Chemo, Hep., AIDS, mental health diagnosis, sleep apnea, morbid obesity)? @ -[None] Was patient admitted / discharged? Hospital course, mention meds given and route, prescriptions, significant lab abnormalities, going to OR and other pertinent info. @ -[See above Undiagnosed new problem with uncertain prognosis? @ -[No] Drug Therapy requiring intensive monitoring for toxicity (Heparin, Nitro, Insulin, Cardizem)? @ -[No] Were any procedures done? @ -[No] Diagnosis/symptom? @ -[Acute knee injury Right mandibular/dental infection Anemia Dehydration Unable to ambulate On safe discharge location Acute, or Chronic, or Acute on Chronic? @ -[Acute Uncomplicated (without systemic symptoms) or Complicated (systemic symptoms)? @ -[Uncomplicated Side effects of treatment? @ -[No] Exacerbation, Progression, or Severe Exacerbation? @ -[No] Poses a threat to life or bodily function? How? (Chest pain, [place], [place], pneumonia, PE, COPD, DKA, ARF, appy, cholecystitis, CVA, Diverticulitis, Homicidal, Suicidal, threat to staff... and all critical care pts) @ -[No - Lab Data Result diagrams: 09/25/23 11:32 09/27/23 04:48 Lab Results 09/16/23 09/16/23 09/16/23 Range/Units 16:42 16:42 16:42 WBC 10.6 (3.8-10.6) k/uL RBC 3.44 L (4.30-5.90) m/uL Hgb 9.1 L (13.0-17.5) gm/dL Hct 27.9 L (39.0-53.0) % MCV 81.2 (80.0-100.0) fL MCH 26.4 (25.0-35.0) pg MCHC 32.5 (31.0-37.0) g/dL RDW 16.4 H (11.5-15.5) % Plt Count 216 (150-450) k/uL MPV 8.8 Neutrophils % 82 % Lymphocytes % 8 % Monocytes % 6 % Eosinophils % 2 % Basophils % 1 % Neutrophils # 8.7 H (1.3-7.7) k/uL Lymphocytes # 0.8 L (1.0-4.8) k/uL Monocytes # 0.6 (0-1.0) k/uL Eosinophils # 0.2 (0-0.7) k/uL Basophils # 0.1 (0-0.2) k/uL Hypochromasia Slight Anisocytosis Slight Sodium 135 L (137-145) mmol/L Potassium 5.5 H (3.5-5.1) mmol/L Chloride 100 (98-107) mmol/L Carbon Dioxide 26 (22-30) mmol/L Anion Gap 9 mmol/L BUN 39 H (9-20) mg/dL Creatinine 0.97 (0.66-1.25) mg/dL Est GFR (CKD-EPI)AfAm >90 (>60 ml/min/1.73 sqM) Est GFR (CKD-EPI)NonAf 84 (>60 ml/min/1.73 sqM) Glucose 116 H (74-99) mg/dL Plasma Lactic Acid Turner 1.5 (0.7-2.0) mmol/L Calcium 9.6 (8.4-10.2) mg/dL Magnesium 1.9 (1.6-2.3) mg/dL Total Bilirubin 0.4 (0.2-1.3) mg/dL AST 24 (17-59) U/L ALT 21 (4-49) U/L Alkaline Phosphatase 90 (38-126) U/L Total Protein 8.7 H (6.3-8.2) g/dL Albumin 4.0 (3.5-5.0) g/dL Urine Color Urine Appearance (Clear) Urine pH (5.0-8.0) Ur Specific Newberry (1.001-1.035) Urine Protein (Negative) Urine Glucose (UA) (Negative) Urine Ketones (Negative) Urine Blood (Negative) Urine Nitrite (Negative) Urine Bilirubin (Negative) Urine Urobilinogen (<2.0) mg/dL Ur Leukocyte Esterase (Negative) 09/16/23 Range/Units 18:28 WBC (3.8-10.6) k/uL RBC (4.30-5.90) m/uL Hgb (13.0-17.5) gm/dL Hct (39.0-53.0) % MCV (80.0-100.0) fL MCH (25.0-35.0) pg MCHC (31.0-37.0) g/dL RDW (11.5-15.5) % Plt Count (150-450) k/uL MPV Neutrophils % % Lymphocytes % % Monocytes % % Eosinophils % % Basophils % % Neutrophils # (1.3-7.7) k/uL Lymphocytes # (1.0-4.8) k/uL Monocytes # (0-1.0) k/uL Eosinophils # (0-0.7) k/uL Basophils # (0-0.2) k/uL Hypochromasia Anisocytosis Sodium (137-145) mmol/L Potassium (3.5-5.1) mmol/L Chloride (98-107) mmol/L Carbon Dioxide (22-30) mmol/L Anion Gap mmol/L BUN (9-20) mg/dL Creatinine (0.66-1.25) mg/dL Est GFR (CKD-EPI)AfAm (>60 ml/min/1.73 sqM) Est GFR (CKD-EPI)NonAf (>60 ml/min/1.73 sqM) Glucose (74-99) mg/dL Plasma Lactic Acid Turner (0.7-2.0) mmol/L Calcium (8.4-10.2) mg/dL Magnesium (1.6-2.3) mg/dL Total Bilirubin (0.2-1.3) mg/dL AST (17-59) U/L ALT (4-49) U/L Alkaline Phosphatase (38-126) U/L Total Protein (6.3-8.2) g/dL Albumin (3.5-5.0) g/dL Urine Color Yellow Urine Appearance Clear (Clear) Urine pH 7.5 (5.0-8.0) Ur Specific Newberry 1.019 (1.001-1.035) Urine Protein Trace H (Negative) Urine Glucose (UA) Negative (Negative) Urine Ketones Negative (Negative) Urine Blood Negative (Negative) Urine Nitrite Negative (Negative) Urine Bilirubin Negative (Negative) Urine Urobilinogen <2.0 (<2.0) mg/dL Ur Leukocyte Esterase Negative (Negative) Disposition Clinical Impression: Fall, Knee pain, right, Dental infection, Anemia, COPD (chronic obstructive pulmonary disease), Dehydration Disposition: ADMITTED IP TO THIS HOSP Condition: Fair
[2023-09-16] MEDS: HYDROcodone/APAP 5-325MG 1 EACH TAB PEG/G-TUBE SCH (20:47)
[2023-09-16] MEDS: BACLOFEN 10 MG TAB PEG/G-TUBE SCH (20:48)
[2023-09-16] MEDS: IBUPROFEN 800 MG TAB PEG/G-TUBE SCH (20:48)
[2023-09-16] MEDS: busPIRone HCl 5 MG TAB PEG/G-TUBE SCH (20:48)
[2023-09-16] MEDS: GABAPENTIN 300 MG CAP PEG/G-TUBE SCH (20:48)
[2023-09-16] MEDS: SODIUM CHLORIDE 0.9% 1,000 ML IV STA (20:51)
[2023-09-16] MEDS ORDERED: METOPROLOL SUCCINATE 25 MG PEG/G-TUBE SCH (21:00)
[2023-09-16] MEDS: LATANOPROST 0.005% OPHTH DROPS 2.5 ML BTL BOTH EYES SCH (21:49)
[2023-09-16] MEDS: AMITRIPTYLINE HCL 25 MG TAB PEG/G-TUBE SCH (21:50)
[2023-09-16] MEDS: lamoTRIgine 25 MG TAB PEG/G-TUBE SCH (21:50)
[2023-09-17 00:02] LABS: Anisocytosis Slight; Basophils # (A) 0.1 k/uL (0-0.2); Basophils % (A) 1 %; Eosinophils # (A) 0.2 k/uL (0-0.7); Eosinophils % (A) 3 %; HCT 22.6 % (39.0-53.0); Hypochromasia Moderate; Lymphocytes # (A) 1.1 k/uL (1.0-4.8); Lymphocytes % (A) 14 %; MCH 27.2 pg (25.0-35.0); MCHC 33.2 g/dL (31.0-37.0); MCV 81.8 fL (80.0-100.0); Mean Platelet Volume 9.6; Monocytes # (A) 0.5 k/uL (0-1.0); Monocytes % (A) 6 %; Neutrophils # (A) 5.4 k/uL (1.3-7.7); Neutrophils % (A) 74 %; Platelet Count 184 k/uL (150-450); RBC 2.76 m/uL (4.30-5.90); RDW 16.5 % (11.5-15.5); WBC 7.4 k/uL (3.8-10.6)
[2023-09-17 00:03] LABS: HGB 7.5 gm/dL (13.0-17.5)
[2023-09-17 00:14] LABS: African American GFR (CKD) >90 (>60 ml/min/1.73 sqM); Anion Gap 2 mmol/L; Blood Urea Nitrogen 36 mg/dL (9-20); Calcium 8.4 mg/dL (8.4-10.2); Carbon Dioxide 26 mmol/L (22-30); Chloride 105 mmol/L (98-107); Glucose 111 mg/dL (74-99); Non-African American GFR(CKD) 79 (>60 ml/min/1.73 sqM); Potassium 5.6 mmol/L (3.5-5.1); Sodium 133 mmol/L (137-145)
[2023-09-17 00:24] LABS: NT-Pro-B-Type Natriuretic Pept 776 pg/mL
[2023-09-17] MEDS: NALOXONE 0.4 MG/ML 1 ML VIAL IV PRN (00:32)
[2023-09-17] MEDS ORDERED: RX INFO: IV CONTRAST WAS GIVEN 1 EACH MISC MISCELLANE PRN (01:05)
--- NOTE | 2023-09-17 01:11 | XR ---
EXAM: XR Chest, 1 View CLINICAL HISTORY: sob TECHNIQUE: Frontal view of the chest. COMPARISON: Portable chest single view 02/01/2023 FINDINGS: Lungs: No lobar consolidation. Reticulonodular interstitial changes in the upper lobes, right greater than left are new from the previous examination with suspected peribronchial cuffing. Pleural space: Unremarkable. No pneumothorax. No large pleural effusion. Heart: Unremarkable. No cardiomegaly. Mediastinum: The mediastinal contours are stable. No tracheal deviation. Bones/joints: Stable postsurgical changes noted in the supraclavicular soft tissues. No acute fracture. Tubes, lines and devices: The tracheostomy tube remains in position. A left subclavian central line is noted with the tip in the superior vena cava. IMPRESSION: No lobar consolidation. Reticulonodular interstitial changes in the upper lobes, right greater than left are new from the previous examination with suspected peribronchial cuffing. Findings suggest subtle interstitial infection. No pleural effusion or pneumothorax.
[2023-09-17] MEDS: SODIUM BICARB 8.4% 50 ML SYR (1 MEQ/ML) IV STA (01:27)
[2023-09-17] MEDS: SODIUM CHLORIDE 0.9% 500 ML 500 ML IV ONE (01:28)
[2023-09-17] MEDS: traMADol 50 MG TAB PEG/G-TUBE SCH (01:30)
[2023-09-17] MEDS: ALBUTEROL NEBULIZED 2.5 MG/3 ML INHALATION STA (01:50)
[2023-09-17] MEDS: SODIUM CHLORIDE 0.9% 1,000 ML IV SCH (02:36)
[2023-09-17] MEDS: METOPROLOL TARTRATE 25 MG TAB PEG/G-TUBE SCH (02:37)
--- NOTE | 2023-09-17 04:06 | CT ---
EXAM: CT Angiography Chest With Intravenous Contrast CLINICAL HISTORY: r/o PE TECHNIQUE: Axial computed tomographic angiography images of the chest with intravenous contrast. CTDI is 16.12 mGy and DLP is 483.6 mGy-cm. This CT exam was performed using one or more of the following dose reduction techniques: automated exposure control, adjustment of the mA and/or kV according to patient size, and/or use of iterative reconstruction technique. MIP reconstructed images were created and reviewed. COMPARISON: No relevant prior studies available. FINDINGS: Limitations: There is extensive respiratory artifact, which degrades image quality throughout the examination. Pulmonary arteries: The examination is of near nondiagnostic quality with suboptimal heterogeneous enhancement of the pulmonary artery tree. In addition, the majority of the segmental and subsegmental branches are obscured by respiratory artifact. No obvious large/central pulmonary embolism in the main, right mean or left main pulmonary artery. Aorta: No acute findings. No thoracic aortic aneurysm. Lungs: No obvious focal airspace consolidation, accounting for limitations. Pleural space: Unremarkable. No significant effusion. No pneumothorax. Heart: The cardiac chambers are normal. Extensive coronary artery calcification. No evidence for right heart strain. No pericardial effusion. Bones/joints: No acute fracture. No dislocation. Soft tissues: Unremarkable. Lymph nodes: Unremarkable. No enlarged lymph nodes. Tubes, lines and devices: A tracheostomy tube is noted in position. There is debris nearly occluding the tracheostomy tube in the region of the trachea. IMPRESSION: 1. There is extensive respiratory artifact, which degrades image quality throughout the examination. 2. The examination is of near nondiagnostic quality with suboptimal heterogeneous enhancement of the pulmonary artery tree. In addition, the majority of the segmental and subsegmental branches are obscured by respiratory artifact. No obvious large/central pulmonary embolism in the main, right mean or left main pulmonary artery. No evidence for right heart strain. 3. No obvious focal airspace consolidation, accounting for limitations. 4. A tracheostomy tube is noted in position. There is debris nearly occluding the tracheostomy tube in the region of the trachea.
[2023-09-17] MEDS: LEVOTHYROXINE 25 MCG TAB PEG/G-TUBE SCH (06:17)
[2023-09-17] MEDS: oxyCODONE-APAP 5-325MG 1 EACH TAB PO STA (06:17)
[2023-09-17 07:03] LABS: African American GFR (CKD) >90 (>60 ml/min/1.73 sqM); Anion Gap 10 mmol/L; Anisocytosis Slight; Basophils # (A) 0.1 k/uL (0-0.2); Basophils % (A) 1 %; Blood Urea Nitrogen 34 mg/dL (9-20); Calcium 8.7 mg/dL (8.4-10.2); Carbon Dioxide 23 mmol/L (22-30); Chloride 102 mmol/L (98-107); Eosinophils # (A) 0.3 k/uL (0-0.7); Eosinophils % (A) 5 %; Glucose 87 mg/dL (74-99); HCT 25.6 % (39.0-53.0); HGB 8.3 gm/dL (13.0-17.5); Hypochromasia Slight; Lymphocytes # (A) 1.2 k/uL (1.0-4.8); Lymphocytes % (A) 18 %; MCH 26.6 pg (25.0-35.0); MCHC 32.7 g/dL (31.0-37.0); MCV 81.5 fL (80.0-100.0); Mean Platelet Volume 8.3; Monocytes # (A) 0.5 k/uL (0-1.0); Monocytes % (A) 8 %; Neutrophils # (A) 4.2 k/uL (1.3-7.7); Neutrophils % (A) 65 %; Non-African American GFR(CKD) 86 (>60 ml/min/1.73 sqM); Platelet Count 218 k/uL (150-450); Potassium 4.6 mmol/L (3.5-5.1); RBC 3.13 m/uL (4.30-5.90); RDW 16.7 % (11.5-15.5); Sodium 135 mmol/L (137-145); WBC 6.4 k/uL (3.8-10.6)
--- NOTE | 2023-09-17 07:51 | P.CNOR ---
History of Present Illness - [facility] Consult date: 09/17/23 History of present illness: The patient is a very pleasant 63-year-old male with multiple medical problems who was admitted following a fall with right knee pain and an inability to safely discharge home. The patient has a tracheostomy making communication very difficult. History was obtained through the patient writing on a piece of paper on the chart. According to the patient he recently fell and has had increased knee pain. The patient has a history significant for having a right hip hemiarthroplasty by Dr. Acosta several years ago and a right tibial plateau fracture treated by Dr. Al this past March with an intramedullary nail. The patient minimally ambulates at baseline and is essentially wheelchair bound. At the time of my evaluation he is complaining of pain and points to his knee when asked where his site of maximum pain is. Past Medical History Past Medical History: Cancer, COPD, GERD/Reflux, Myocardial Infarction ([place]), Pneumonia, Seizure Disorder Additional Past Medical History / Comment(s): 07/30/20 fall with impacted R hip fracture/tracheal bronchitis, hemoptysis, pulmonary nodules. 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 Last chemo/radiation in 2016. fell in August 2022, fractured leg and was transferred to [place] per patient Last Myocardial Infarction Date:: 2014 History of Any Multi-Drug Resistant Organisms: None Reported Past Surgical History: Heart Catheterization Additional Past Surgical History / Comment(s): Oral surgery with resection floor of mouth/tongue/mandible and bilateral neck resection with skin graft taken from L upper arm at [facility], tracheostomy, peg tube Past Anesthesia/Blood Transfusion Reactions: No Reported Reaction Additional Past Anesthesia/Blood Transfusion Reaction / Comm: adopted - no family hx Past Psychological History: Anxiety, Depression Additional Psychological History / Comment(s): Pt resides with his spouse. He states he has home care thru [facility]. He uses a walker to ambulate. Smoking Status: Current every day smoker Past Alcohol Use History: Daily, Heavy Additional Past Alcohol Use History / Comment(s): Pt started smoking in 1977 and is a 1/2 ppd smoker. Pt states he now has a beer occasionally thru peg tube. Past Drug Use History: Marijuana Additional Drug Use History / Comment(s): Pt uses marijuana rarely. - Past Family History Mother Family Medical History: Unable to Obtain Additional Family Medical History / Comment(s): pt is adopted Medications and Allergies Home Medications Medication Instructions Recorded Confirmed Type Amitriptyline HCl [Elavil] 25 mg PEG/G-TUBE HS 03/22/22 09/16/23 History Baclofen [Lioresal] 10 mg PEG/G-TUBE TID 03/22/22 09/16/23 History Levothyroxine Sodium 25 mcg PEG/G-TUBE DAILY 03/22/22 09/16/23 History busPIRone HCL 5 mg PEG/G-TUBE BID 03/22/22 09/16/23 History lamoTRIgine [LaMICtal] 25 mg PEG/G-TUBE BID 03/22/22 09/16/23 History Spironolactone [Aldactone] 25 mg PEG/G-TUBE DAILY #30 tab 03/28/22 09/16/23 Rx lisinopriL [Zestril] 2.5 mg PEG/G-TUBE DAILY #30 tab 03/28/22 09/16/23 Rx Sodium Chloride Tab 1 gm PEG/G-TUBE DAILY #30 tab 05/02/22 09/16/23 Rx Pantoprazole Sodium [Protonix] 20 mg PEG/G-TUBE DAILY 08/27/22 09/16/23 History Midodrine [ProAmatine] 5 mg PEG/G-TUBE TID 02/01/23 09/16/23 History traMADol HCl [Ultram] 50 mg PEG/G-TUBE Q6HR 02/01/23 09/16/23 History Famotidine [Pepcid] 20 mg PEG/G-TUBE DAILY 09/01/23 09/16/23 History Gabapentin 300 mg PEG/G-TUBE TID 09/01/23 09/16/23 History HYDROcodone/APAP 5-325MG [[place] 1 tab PEG/G-TUBE BID 09/01/23 09/16/23 History 5-325] Ibuprofen [Motrin] 800 mg PEG/G-TUBE TID 09/01/23 09/16/23 History Latanoprost [Latanoprost 0.005%] 1 drop BOTH EYES HS 09/01/23 09/16/23 History Metoprolol Succinate [Kapspargo 25 mg PEG/G-TUBE BID 09/01/23 09/16/23 History Sprinkle] Prochlorperazine [Compazine] 10 mg PEG/G-TUBE DAILY 09/01/23 09/16/23 History Allergies Allergy/AdvReac Type Severity Reaction Status Date / Time No Known Allergies Allergy Verified 09/16/23 17:18 Physical Examination The patient is resting comfortably in his bed. He awakens and responds to verbal questions. He is alert and will answer questions. He has a tracheostomy in place. He demonstrates nonlabored breathing. His upper extremities are nontender and without deformity. There is no tenderness throughout the left lower extremity and he has no pain with passive range of motion of the left leg. A focused examination of the right lower extremity was conducted. On inspection the patient has healed incisions over the lateral aspect of the right hip, right knee, and ankle from interlocking screws from prior tibial nail. There is mild swelling throughout the knee and a mild to moderate effusion. There is no erythema or warmth. There is tenderness diffusely throughout the right knee. He has pain with attempted passive range of motion of the right knee. There are chronic wounds over the patient's feet and toes. Results X-rays of the pelvis show a prior cemented hip hemiarthroplasty, severe left hip osteoarthritis, and diffuse degenerative changes in the lumbar spine. I do not see any acute fractures on the pelvis x-ray. X-rays of the right femur show a cemented hip hemiarthroplasty and diffuse osteopenia. There is a possible minimally displaced distal femur fracture. X-rays of the right tibia and fibula show a prior intramedullary nail with a healed proximal third tibia fracture. There is a possible minimally displaced distal femur fracture. - Labs Labs: Abnormal Lab Results - Last 24 Hours (Table) 09/16/23 09/16/23 09/16/23 Range/Units 16:42 16:42 18:28 RBC 3.44 L (4.30-5.90) m/uL Hgb 9.1 L (13.0-17.5) gm/dL Hct 27.9 L (39.0-53.0) % RDW 16.4 H (11.5-15.5) % Neutrophils # 8.7 H (1.3-7.7) k/uL Lymphocytes # 0.8 L (1.0-4.8) k/uL D-Dimer (<0.60) mg/L FEU Sodium 135 L (137-145) mmol/L Potassium 5.5 H (3.5-5.1) mmol/L BUN 39 H (9-20) mg/dL Glucose 116 H (74-99) mg/dL Total Protein 8.7 H (6.3-8.2) g/dL Urine Protein Trace H (Negative) 09/16/23 09/16/23 09/16/23 Range/Units 23:44 23:44 23:50 RBC 2.76 L (4.30-5.90) m/uL Hgb 7.5 L D (13.0-17.5) gm/dL Hct 22.6 L (39.0-53.0) % RDW 16.5 H (11.5-15.5) % Neutrophils # (1.3-7.7) k/uL Lymphocytes # (1.0-4.8) k/uL D-Dimer 12.87 H (<0.60) mg/L FEU Sodium 133 L (137-145) mmol/L Potassium 5.6 H (3.5-5.1) mmol/L BUN 36 H (9-20) mg/dL Glucose 111 H (74-99) mg/dL Total Protein (6.3-8.2) g/dL Urine Protein (Negative) 09/17/23 09/17/23 Range/Units 05:36 05:36 RBC 3.13 L (4.30-5.90) m/uL Hgb 8.3 L (13.0-17.5) gm/dL Hct 25.6 L (39.0-53.0) % RDW 16.7 H (11.5-15.5) % Neutrophils # (1.3-7.7) k/uL Lymphocytes # (1.0-4.8) k/uL D-Dimer (<0.60) mg/L FEU Sodium 135 L (137-145) mmol/L Potassium (3.5-5.1) mmol/L BUN 34 H (9-20) mg/dL Glucose (74-99) mg/dL Total Protein (6.3-8.2) g/dL Urine Protein (Negative) H & H 09/16/23 09/16/23 09/17/23 Range/Units 16:42 23:44 05:36 Hgb 9.1 L 7.5 L D 8.3 L (13.0-17.5) gm/dL Hct 27.9 L 22.6 L 25.6 L (39.0-53.0) % Result Diagrams: 09/17/23 05:36 09/17/23 05:36 Assessment and Plan Assessment: Possible minimally displaced right distal femur fracture Prior right hip hemiarthroplasty Prior right proximal tibia fracture treated with intramedullary nail Multiple medical problems Plan: The patient's x-rays are suggestive of a possible minimally displaced distal femur fracture. Given the patient's history of fall, pain and swelling in the right knee and history of multiple fractures I would like to get a computed tomography scan to rule out a fracture. Further recommendations regarding weightbearing restrictions and treatment pending the computed tomography scan. The patient was asking for pain medication at the time of my evaluation and I will defer this as well as DVT prophylaxis to the primary service. Time with Patient: Greater than 30
[2023-09-17] MEDS: MIDODRINE 5 MG TAB PEG/G-TUBE SCH (08:03)
[2023-09-17] MEDS ORDERED: LEVOTHYROXINE 25 MCG TAB PEG/G-TUBE SCH (09:00)
--- NOTE | 2023-09-17 09:34 | P.HPIM ---
History of Present Illness This is a pleasant 63 years old male with past medical history of oral cancer status post tracheostomy and PEG tube placement Has history of COPD GERD, pneumonia and seizure disorder He came from home because he fell because his legs give away while he was trying to get up. Patient denies dizziness or loss of consciousness. He denies chest pain or dyspnea however his oxygen requirements increased up 8- 10 L was saturating about 90%, he is not on oxygen at home. He is complaining of from constipation for a few days and left upper quadrant pain and tenderness with some leakage from the tube site. However on examination there is no evidence of cellulitis or discharge Patient currently on 8 L of oxygen via trach collar with an oxygen saturation of 90%, is mildly tachycardic and tachypneic. Blood pressure is stable. Was l ittle hypertensive on admission and received fluids and boluses. WBC is 10.6 and 6.4, hemoglobin 10.1 and 8.3, he has history of anemia with range at 4.7-14.3. Potassium slightly high 5.5 came back to normal at 4.6. Creatinine 1.0 came down to 0.9. X-ray of the right tibia and fibula show no fracture, no fracture of the femur and pelvis x-rays show no fracture D-dimer is elevated at 12 BNP is 776 Influenza A and type B, RSV, SARS (coronavirus) are and detected CAT scan of the chest for PT protocol. No PE. No obvious focal airspace consolidation (Patient was able to communicate through writing) Review of Systems Review of systems CONSTITUTIONAL: No fever, no malaise, no fatigue. HEENT: No recent visual problems or hearing problems. Denied any sore throat. CARDIOVASCULAR: No orthopnea, PND, no palpitations, no syncope. PULMONARY: No shortness of breath, no cough, no hemoptysis. GASTROINTESTINAL: No diarrhea, no nausea, no vomiting, no abdominal pain. Normoactive bowel sounds. NEUROLOGICAL: No headaches, no weakness, no numbness. HEMATOLOGICAL: Denies any bleeding or petechiae. GENITOURINARY: Denies any burning micturition, frequency, or urgency. MUSCULOSKELETAL/RHEUMATOLOGICAL: Denies any joint pain, swelling, or any muscle pain. ENDOCRINE: Denies any polyuria or polydipsia. Past Medical History Past Medical History: Cancer, COPD, GERD/Reflux, Myocardial Infarction ([place]), P neumonia, Seizure Disorder Additional Past Medical History / Comment(s): 07/30/20 fall with impacted R hip fracture/tracheal bronchitis, hemoptysis, pulmonary nodules. 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 Last chemo/radiation in 2016. fell in August 2022, fractured leg and was transferred to [place] per patient Last Myocardial Infarction Date:: 2014 History of Any Multi-Drug Resistant Organisms: None Reported Past Surgical History: Heart Catheterization Additional Past Surgical History / Comment(s): Oral surgery with resection floor of mouth/tongue/mandible and bilateral neck resection with skin graft taken from L upper arm at [facility], tracheostomy, peg tube Past Anesthesia/Blood Transfusion Reactions: No Reported Reaction Additional Past Anesthesia/Blood Transfusion Reaction / Comment(s): adopted - no family hx Past Psychological History: Anxiety, Depression Additional Psychological History / Comment(s): Pt resides with his spouse. He states he has home care thru [facility]. He uses a walker to ambulate. Smoking Status: Current every day smoker Past Alcohol Use History: Daily, Heavy Additional Past Alcohol Use History / Comment(s): Pt started smoking in 1977 and is a 1/2 ppd smoker. Pt states he now has a beer occasionally thru peg tube. Past Drug Use History: Marijuana Additional Drug Use History / Comment(s): Pt uses marijuana rarely. - Past Family History Mother Family Medical History: Unable to Obtain Additional Family Medical History / Comment(s): pt is adopted Medications and Allergies Home Medications Medication Instructions Recorded Confirmed Type Amitriptyline HCl [Elavil] 25 mg PEG/G-TUBE HS 03/22/22 09/16/23 History Baclofen [Lioresal] 10 mg PEG/G-TUBE TID 03/22/22 09/16/23 History Levothyroxine Sodium 25 mcg PEG/G-TUBE DAILY 03/22/22 09/16/23 History busPIRone HCL 5 mg PEG/G-TUBE BID 03/22/22 09/16/23 History lamoTRIgine [LaMICtal] 25 mg PEG/G-TUBE BID 03/22/22 09/16/23 History Spironolactone [Aldactone] 25 mg PEG/G-TUBE DAILY #30 tab 03/28/22 09/16/23 Rx lisinopriL [Zestril] 2.5 mg PEG/G-TUBE DAILY #30 tab 03/28/22 09/16/23 Rx Sodium Chloride Tab 1 gm PEG/G-TUBE DAILY #30 tab 05/02/22 09/16/23 Rx Pantoprazole Sodium [Protonix] 20 mg PEG/G-TUBE DAILY 08/27/22 09/16/23 History Midodrine [ProAmatine] 5 mg PEG/G-TUBE TID 02/01/23 09/16/23 History traMADol HCl [Ultram] 50 mg PEG/G-TUBE Q6HR 02/01/23 09/16/23 History Famotidine [Pepcid] 20 mg PEG/G-TUBE DAILY 09/01/23 09/16/23 History Gabapentin 300 mg PEG/G-TUBE TID 09/01/23 09/16/23 History HYDROcodone/APAP 5-325MG [[place] 1 tab PEG/G-TUBE BID 09/01/23 09/16/23 History 5-325] Ibuprofen [Motrin] 800 mg PEG/G-TUBE TID 09/01/23 09/16/23 History Latanoprost [Latanoprost 0.005%] 1 drop BOTH EYES HS 09/01/23 09/16/23 History Metoprolol Succinate [Kapspargo 25 mg PEG/G-TUBE BID 09/01/23 09/16/23 History Sprinkle] Prochlorperazine [Compazine] 10 mg PEG/G-TUBE DAILY 09/01/23 09/16/23 History Allergies Allergy/AdvReac Type Severity Reaction Status Date / Time No Known Allergies Allergy Verified 09/16/23 17:18 Physical Exam Vitals: Vital Signs Temp Pulse Pulse Resp BP BP Pulse Ox 09/17/23 07:31 97.4 F L 97 19 90/56 90 L 09/17/23 06:16 09/17/23 02:29 09/17/23 02:03 112 H 09/17/23 01:50 110 H 09/17/23 01:41 114 H 129/89 91 L 09/17/23 01:25 97.7 F 94 13 84/47 89 L 09/17/23 00:32 13 09/16/23 20:00 97.7 F 131 H 21 125/76 93 L 09/16/23 19:52 118 H 22 118/74 96 09/16/23 19:35 09/16/23 17:13 09/16/23 15:20 97.8 F 129 H 24 142/98 92 L FiO2 09/17/23 07:31 09/17/23 06:16 35 09/17/23 02:29 40 09/17/23 02:03 09/17/23 01:50 09/17/23 01:41 09/17/23 01:25 09/17/23 00:32 09/16/23 20:00 09/16/23 19:52 09/16/23 19:35 40 09/16/23 17:13 28 09/16/23 15:20 Intake and Output 09/16/23 09/17/23 09/17/23 22:59 06:59 14:59 Other: # Voids 1 Weight 79.379 kg GENERAL: The patient is alert and oriented x3, not in any acute distress. Well developed, well nourished. HEENT: Pupils are round and equally reacting to light. EOMI. No scleral icterus. No conjunctival pallor. Normocephalic, atraumatic. No pharyngeal erythema. No thyromegaly. CARDIOVASCULAR: S1 and S2 present. No murmurs, rubs, or gallops. -PULMONARY: Chest is clear to auscultation, no wheezing , no crackles. Tr acheostomy tube in place with trach collar at 8-10 L/m of oxygen -ABDOMEN: Soft, LUQ tenderness with mild guarding , No rebound tenderness, normoactive bowel sounds. No palpable organomegaly. PEG tube in place MUSCULOSKELETAL: No joint swelling or deformity. -EXTREMITIES: No cyanosis, clubbing, or pedal edema. right knee mildly swollen and some tenderness in the distal femur with no deformity redness NEUROLOGICAL: Gross neurological examination did not reveal any focal deficits. SKIN: No rashes. no petechiae. Results CBC & Chem 7: 09/17/23 05:36 09/17/23 05:36 Labs: Abnormal Lab Results - Last 24 Hours (Table) 09/16/23 09/16/23 09/16/23 Range/Units 16:42 16:42 18:28 RBC 3.44 L (4.30-5.90) m/uL Hgb 9.1 L (13.0-17.5) gm/dL Hct 27.9 L (39.0-53.0) % RDW 16.4 H (11.5-15.5) % Neutrophils # 8.7 H (1.3-7.7) k/uL Lymphocytes # 0.8 L (1.0-4.8) k/uL D-Dimer (<0.60) mg/L FEU Sodium 135 L (137-145) mmol/L Potassium 5.5 H (3.5-5.1) mmol/L BUN 39 H (9-20) mg/dL Glucose 116 H (74-99) mg/dL Total Protein 8.7 H (6.3-8.2) g/dL Urine Protein Trace H (Negative) 09/16/23 09/16/23 09/16/23 Range/Units 23:44 23:44 23:50 RBC 2.76 L (4.30-5.90) m/uL Hgb 7.5 L D (13.0-17.5) gm/dL Hct 22.6 L (39.0-53.0) % RDW 16.5 H (11.5-15.5) % Neutrophils # (1.3-7.7) k/uL Lymphocytes # (1.0-4.8) k/uL D-Dimer 12.87 H (<0.60) mg/L FEU Sodium 133 L (137-145) mmol/L Potassium 5.6 H (3.5-5.1) mmol/L BUN 36 H (9-20) mg/dL Glucose 111 H (74-99) mg/dL Total Protein (6.3-8.2) g/dL Urine Protein (Negative) 09/17/23 09/17/23 Range/Units 05:36 05:36 RBC 3.13 L (4.30-5.90) m/uL Hgb 8.3 L (13.0-17.5) gm/dL Hct 25.6 L (39.0-53.0) % RDW 16.7 H (11.5-15.5) % Neutrophils # (1.3-7.7) k/uL Lymphocytes # (1.0-4.8) k/uL D-Dimer (<0.60) mg/L FEU Sodium 135 L (137-145) mmol/L Potassium (3.5-5.1) mmol/L BUN 34 H (9-20) mg/dL Glucose (74-99) mg/dL Total Protein (6.3-8.2) g/dL Urine Protein (Negative) Thrombosis Risk Factor Assmnt - Choose All That Apply Each Factor Represents 1 point: Obesity (BMI >25) Each Risk Factor Represents 2 Points: Age 61-74 years Other congenital or acquired thrombophilia - If yes, enter type in comment: No Thrombosis Risk Factor Assessment Total Risk Factor Score: 3 Thrombosis Risk Factor Assessment Level: Moderate Risk Assessment and Plan Assessment: Acute hypoxic respiratory failure Left upper quadrant pain and tenderness of the PEG tube site history of oral cancer status post tracheostomy and PEG tube placement COPD with no hormones exacerbation History of GERD History of seizure disorder Possible minimally displaced right distal femur fracture Plan: Continue gentle hydration Hold ibuprofen Orthopedic consult will ordered CT of the right knee CT A of the chest is negative for PE Consult pulmonary service We'll do a CT of the abdomen and pelvis without contrast Ultrasound of the leg is ordered Labs and medication were reviewed.. Continue same treatment. Continue with symptomatic treatment. Resume home medication. Monitor labs and vitals. DVT and GI prophylaxis. Further recommendations as per clinical course of the patient DVT prophylaxis: Subcutaneous heparin GI Prophylaxis: Pepcid Prognosis is guarded Trace bowel was in the care of the patient tomorrow
--- NOTE | 2023-09-17 10:07 | CT ---
EXAMINATION TYPE: CT knee RT wo con DATE OF EXAM: 09/17/2023 COMPARISON: None HISTORY: pain and swelling after fall CT DLP: 154.5 mGycm Automated exposure control for dose reduction was used. Contrast: None Technique: Axial images 3 mm thick sections. Reconstructed images in coronal and sagittal plane. Thre e-D reconstructed images of separate computer performed. FINDINGS: Although presently a prior smooth with the image [id number]. This is a cortical defect remains pre sent. Acute fracture is not identified. Additional hardware inferior. There is a fracture of the lateral femoral condyle. Example image 40. Screws are present from prior hernia repair. Medullary corinne is present. No acute fractures are evident . Proximal fibula appears intact. IMPRESSION: 1. DISTAL LATERAL FEMORAL CONDYLAR FRACTURE. 2. SMALL JOINT EFFUSION
--- NOTE | 2023-09-17 10:11 | CT ---
EXAMINATION TYPE: CT abdomen pelvis wo con DATE OF EXAM: 09/17/2023 COMPARISON: None INDICATION: LUQ pain at peg tube site w/ leakage DLP: 688 mGycm, Automated exposure control for dose reduction was used. CONTRAST: 0 mL of Isovue 300. Study performed without Oral Contrast TECHNIQUE: Axial images were obtained from above the diaphragm to the pubic rami in the axial plane a t 5 mm thick sections. Reconstructed images are reviewed on the computer in the coronal plane. FINDINGS: Limited CT sections are obtained the lung bases. The lung bases are clear. CT ABDOMEN: Left upper quadrant peg tube appears to be in normal position inflated within the stomach wall. Liver: Normal Spleen: Scattered calcified granuloma within the spleen. Pancreas: Normal Adrenal glands: The adrenal glands are normal. Gallbladder: Gallstones are present. Kidneys: No masses are evident. No hydronephrosis is present. No cysts are present. Small amount o f contrast within the renal collecting system. Aorta: Vascular calcification is within the aorta. Inferior vena cava: Normal. CT PELVIS: Beam hardening artifact from a right hip prosthesis in intense contrast urinary bladder is present. Loops of bowel within the abdomen and pelvis are normal. This study is performed without oral con trast limiting bowel evaluation. Appendix: Not identified. Urinary bladder: Normal. Genitourinary structures: Prostate is unremarkable Osseous structures: No suspicious lytic or sclerotic lesions. IMPRESSION: 1. No acute abnormality CT abdomen and pelvis.
[2023-09-17] MEDS: SODIUM CHLORIDE TAB 1 GM TAB PEG/G-TUBE SCH (10:36)
[2023-09-17] MEDS: PROCHLORPERAZINE 10 MG TAB PEG/G-TUBE SCH (10:37)
[2023-09-17] MEDS: PANTOPRAZOLE SODIUM 40 MG GRANULE PKT PEG/G-TUBE SCH (10:37)
[2023-09-17] MEDS: FAMOTIDINE 20 MG TAB PEG/G-TUBE SCH (10:37)
[2023-09-17] MEDS: SPIRONOLACTONE 25 MG TAB PEG/G-TUBE SCH (10:38)
--- NOTE | 2023-09-17 11:16 | US ---
EXAMINATION TYPE: US venous doppler duplex LE DATE OF EXAM: 09/17/2023 10:29 AM COMPARISON: US CLINICAL INDICATION: Male, 63 years old with history of leg swelling; Leg swelling SIDE PERFORMED: Bilateral TECHNIQUE: The lower extremity deep venous system is examined utilizing real time linear array sonog dayana with graded compression, doppler sonography and color-flow sonography. VESSELS IMAGED: Common Femoral Vein Deep Femoral Vein Greater Saphenous Vein * Femoral Vein Popliteal Vein Small Saphenous Vein * Proximal Calf Veins (* superficial vessels) Right Leg: Negative for DVT Left Leg: Negative for DVT IMPRESSION: 1. Bilateral lower extremity ultrasound negative for deep venous thrombosis.
[2023-09-17] MEDS: IPRATROPIUM-ALBUTEROL 3 ML NEB INHALATION SCH (12:02)
[2023-09-17] MEDS: guaiFENesin-DM 100-10MG/5ML 10 ML CUP PEG/G-TUBE SCH (12:35)
[2023-09-17] MEDS: methylPREDNISolone SOD SUCCI 125 MG/2 ML VIAL IV SCH (12:35)
[2023-09-17] MEDS: PIPERACILLIN-TAZOBACTAM 3.375 GM in SODIUM CHLORIDE 0.9% 100 ML IVPB STA (12:35)
--- NOTE | 2023-09-17 12:49 | P.CNPUL ---
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 He has a history of chronic tobacco dependence, daily alcohol use, marijuana use, anxiety/depression, seizure disorder. He was brought into the emergency room yesterday after sustaining a fall from his chair. EMS found him to suspected him to spend most of his time in a chair as there were over half dozen urine bottles adjacent to the chair. The patient also had some right mandibular pain. He was to have remaining teeth extracted in September. He also has a area of eschar under the right mandible that he states was related to shaving and has not healed properly. CT scan of the right knee revealed distal lateral femoral condylar fracture. Small joint effusion. CT angiogram of the chest was of quite poor quality. No obvious central pulmonary embolism noted. No focal airspace consolidation. Tracheostomy tube in good position. There is debris or debris nearly occluding the tracheostomy tube near the trachea. The patient was seen today in consultation due to increasing shortness of breath cough and congestion. He has a very loose productive cough of significant sputum. He is maintaining O2 saturations in the 90s on 35% trach collar. He is afebrile. Slightly tachycardic. White count 6.4. Hemoglobin 8.3. Sodium 135. Potassium 4.6. Bicarb 23. BUN 34. Creatinine 0.95. Viral screen is negative. Procalcitonin 0.13. Review of Systems REVIEW OF SYSTEMS: CONSTITUTIONAL: Denies any recent significant weight loss or weight gain. EYES: Denies change in vision. EARS, NOSE, MOUTH, THROAT: Denies headaches, denies sore throat. CARDIOVASCULAR: Denies chest pain, palpitations or syncopal episodes. RESPIRATORY: Positive for shortness of breath, cough, congestion no hemoptysis. GASTROINTESTINAL: Denies change in appetite, denies abdominal pain GENITOURINARY: Denies hematuria, denies infections. MUSKULOSKELETAL: Positive for right knee pain, right jaw pain. INTEGUMENTARY: Denies rash, denies eczema. NEUROLOGICAL: Denies recent memory loss, no recent seizure activity. PSYCHIATRIC: Denies anxiety, denies depression. HEMATOLOGIC/LYMPHATIC: Denies anemia, denies enlarged lymph nodes. Past Medical History Past Medical History: Cancer, COPD, GERD/Reflux, Myocardial Infarction (HI), Pneumonia, Seizure Disorder Additional Past Medical History / Comment(s): 07/30/20 fall with impacted R hip fracture/tracheal bronchitis, hemoptysis, pulmonary nodules. Other hx: 2016 Squamous cell carcinoma of the oral cavity with surgery/chemoradiation,dy sphagia, has trach and peg tube, upper GI bleed, thrombocytopenia, hyponatremia, chronic hypotension, seizure from alcohol withdrawal several years ago, L arm neuropathy, sacral decubitus, chronic back pain. Last chemo/radiation in 2016. fell in August 2022, fractured leg and was transferred to [facility] per patient Last Myocardial Infarction Date:: 2014 History of Any Multi-Drug Resistant Organisms: None Reported Past Surgical History: Heart Catheterization Additional Past Surgical History / Comment(s): Oral surgery with resection floor of mouth/tongue/mandible and bilateral neck resection with skin graft taken from L upper arm at [facility], tracheostomy, peg tube Past Anesthesia/Blood Transfusion Reactions: No Reported Reaction Additional Past Anesthesia/Blood Transfusion Reaction / Comment(s): adopted - no family hx Past Psychological History: Anxiety, Depression Additional Psychological History / Comment(s): Pt resides with his spouse. He states he has home care thru [facility]. He uses a walker to ambulate. Smoking Status: Current every day smoker Past Alcohol Use History: Daily, Heavy Additional Past Alcohol Use History / Comment(s): Pt started smoking in 1977 and is a 1/2 ppd smoker. Pt states he now has a beer occasionally thru peg tube. Past Drug Use History: Marijuana Additional Drug Use History / Comment(s): Pt uses marijuana rarely. - Past Family History Mother Family Medical History: Unable to Obtain Additional Family Medical History / Comment(s): pt is adopted Medications and Allergies Home Medications Medication Instructions Recorded Confirmed Type Amitriptyline HCl [Elavil] 25 mg PEG/G-TUBE HS 03/22/22 09/16/23 History Baclofen [Lioresal] 10 mg PEG/G-TUBE TID 03/22/22 09/16/23 History Levothyroxine Sodium 25 mcg PEG/G-TUBE DAILY 03/22/22 09/16/23 History busPIRone HCL 5 mg PEG/G-TUBE BID 03/22/22 09/16/23 History lamoTRIgine [LaMICtal] 25 mg PEG/G-TUBE BID 03/22/22 09/16/23 History Spironolactone [Aldactone] 25 mg PEG/G-TUBE DAILY #30 tab 03/28/22 09/16/23 Rx lisinopriL [Zestril] 2.5 mg PEG/G-TUBE DAILY #30 tab 03/28/22 09/16/23 Rx Sodium Chloride Tab 1 gm PEG/G-TUBE DAILY #30 tab 05/02/22 09/16/23 Rx Pantoprazole Sodium [Protonix] 20 mg PEG/G-TUBE DAILY 08/27/22 09/16/23 History Midodrine [ProAmatine] 5 mg PEG/G-TUBE TID 02/01/23 09/16/23 History traMADol HCl [Ultram] 50 mg PEG/G-TUBE Q6HR 02/01/23 09/16/23 History Famotidine [Pepcid] 20 mg PEG/G-TUBE DAILY 09/01/23 09/16/23 History Gabapentin 300 mg PEG/G-TUBE TID 09/01/23 09/16/23 History HYDROcodone/APAP 5-325MG [[place] 1 tab PEG/G-TUBE BID 09/01/23 09/16/23 History 5-325] Ibuprofen [Motrin] 800 mg PEG/G-TUBE TID 09/01/23 09/16/23 History Latanoprost [Latanoprost 0.005%] 1 drop BOTH EYES HS 09/01/23 09/16/23 History Metoprolol Succinate [[place]apspargo 25 mg PEG/G-TUBE BID 09/01/23 09/16/23 History Sprinkle] Prochlorperazine [Compazine] 10 mg PEG/G-TUBE DAILY 09/01/23 09/16/23 History Allergies Allergy/AdvReac Type Severity Reaction Status Date / Time No Known Allergies Allergy Verified 09/16/23 17:18 Physical Exam Vitals: Vital Signs Temp Pulse Pulse Resp BP BP Pulse Ox 09/17/23 12:14 106 H 09/17/23 12:02 104 H 09/17/23 10:35 102 H 98/60 92 L 09/17/23 09:23 09/17/23 07:31 97.4 F L 97 19 90/56 90 L 09/17/23 06:16 09/17/23 02:29 09/17/23 02:03 112 H 09/17/23 01:50 110 H 09/17/23 01:41 114 H 129/89 91 L 09/17/23 01:25 97.7 F 94 13 84/47 89 L 09/17/23 00:32 13 09/16/23 20:00 97.7 F 131 H 21 125/76 93 L 09/16/23 19:52 118 H 22 118/74 96 09/16/23 19:35 09/16/23 17:13 09/16/23 15:20 97.8 F 129 H 24 142/98 92 L FiO2 09/17/23 12:14 09/17/23 12:02 09/17/23 10:35 09/17/23 09:23 35 09/17/23 07:31 09/17/23 06:16 35 09/17/23 02:29 40 09/17/23 02:03 09/17/23 01:50 09/17/23 01:41 09/17/23 01:25 09/17/23 00:32 09/16/23 20:00 09/16/23 19:52 09/16/23 19:35 40 09/16/23 17:13 28 09/16/23 15:20 Intake and Output 09/16/23 09/17/23 09/17/23 22:59 06:59 14:59 Other: Voiding Method Urinal # Voids 1 Weight 79.379 kg GENERAL EXAM: Alert, EXTR 3-year-old male, communicates with writing, on trach collar 35%, comfortable in no apparent distress. HEAD: Normocephalic. Eschar noted under right mandible EYES: Normal reaction of pupils, equal size. NOSE: Clear with pink turbinates. THROAT: No erythema or exudates. NECK: Tracheostomy tube secured in place. No masses, no JVD. CHEST: No chest wall deformity. LUNGS: Equal air entry with no crackles, wheeze, rhonchi or dullness. CVS: S1 and S2 normal with no audible murmur, regular rhythm. ABDOMEN: Leg tube exit site clean and dry. No hepatosplenomegaly, normal bowel sounds, no guarding or rigidity. SPINE: No scoliosis or deformity SKIN: No rashes CENTRAL NERVOUS SYSTEM: No focal deficits, tone is normal in all 4 extremities. EXTREMITIES: There is no peripheral edema. No clubbing, no cyanosis. Peripheral pulses are intact. Results - Laboratory Findings CBC and BMP: 09/17/23 05:36 09/17/23 05:36 PT/INR, D-dimer D-Dimer 12.87 mg/L FEU (<0.60) H 09/16/23 23:50 Abnormal lab findings: Abnormal Labs 09/16/23 09/16/23 09/16/23 16:42 16:42 18:28 RBC 3.44 L Hgb 9.1 L Hct 27.9 L RDW 16.4 H Neutrophils # 8.7 H Lymphocytes # 0.8 L D-Dimer Sodium 135 L Potassium 5.5 H BUN 39 H Glucose 116 H Total Protein 8.7 H Procalcitonin Urine Protein Trace H 09/16/23 09/16/23 09/16/23 23:44 23:44 23:44 RBC 2.76 L Hgb 7.5 L D Hct 22.6 L RDW 16.5 H Neutrophils # Lymphocytes # D-Dimer Sodium 133 L Potassium 5.6 H BUN 36 H Glucose 111 H Total Protein Procalcitonin 0.13 H Urine Protein 09/16/23 09/17/23 09/17/23 23:50 05:36 05:36 RBC 3.13 L Hgb 8.3 L Hct 25.6 L RDW 16.7 H Neutrophils # Lymphocytes # D-Dimer 12.87 H Sodium 135 L Potassium BUN 34 H Glucose Total Protein Procalcitonin Urine Protein - Diagnostic Findings Chest x-ray: image reviewed CT scan - chest: image reviewed Assessment and Plan Assessment: Right knee pain secondary to fall/trauma CT scan reveals distal lateral femoral condylar fracture. Small joint effusion Acute on chronic hypoxemic respiratory failure secondary to acute exacerbation of chronic obstructive pulmonary disease History of oral cancer with resection to the floor of the mouth, tongue, mandible and bilateral neck resection with chemo/radiation and with skin graft with subsequent tracheostomy and PEG tube placements. Back in 2016 at [facility] Right mandibular pain with plans for teeth extraction, eschar noted and nonhealing from shaving incident History of chronic tobacco dependence History of daily alcohol use History of seizure disorder History of marijuana use Plan: The patient was seen and evaluated Chest x-ray, CAT scans, labs and medications reviewed Procalcitonin 0.13, add Zosyn Add bronchodilators, steroids Add Mucinex Obtain a sputum sample Titrate the FiO2 as tolerated Social work consult regarding living situation We will continue to follow and make further recommendations based on his clinical status I have personally seen and examined the patient, performed the documentation and the assessment and plan as written. Number of minutes spent on the visit: 20.
[2023-09-17] MEDS: HYDROcodone/APAP 5-325MG 1 EACH TAB PEG/G-TUBE PRN (14:21)
[2023-09-17] MEDS: PIPERACILLIN-TAZOBACTAM 3.375 GM in SODIUM CHLORIDE 0.9% 100 ML IVPB SCH (16:58)
[2023-09-17] MEDS: ACETAMINOPHEN TAB 500 MG TAB PEG/G-TUBE PRN (21:28)
[2023-09-18 05:32] LABS: Glucose,Whole Blood 171 mg/dL (70-110)
[2023-09-18] MEDS: ENOXAPARIN 40 MG/0.4 ML SYRINGE SQ SCH (08:07)
[2023-09-18 08:34] LABS: Basophils # (A) 0 X 10*3/uL (0.00-0.10); Basophils % (A) 0 %; Eosinophils # (A) 0 X 10*3/uL (0.04-0.35); Eosinophils % (A) 0 %; HCT 20.2 % (39.6-50.0); HGB 6.3 g/dL (13.0-17.0); Lymphocytes # (A) 0.45 X 10*3/uL (0.90-5.00); MCH 25.3 pg (27.0-32.0); MCHC 31.2 g/dL (32.0-37.0); MCV 81.1 FL (80.0-97.0); Mean Platelet Volume 10.6 FL (9.5-12.2); Monocytes # (A) 0.03 X 10*3/uL (0.20-1.00); Monocytes % (A) 0.6 %; NRBC Per 100 WBC 0 X 10*3/uL (0.00-0.01); Neutrophils # (A) 4.49 X 10*3/uL (1.80-7.70); Neutrophils % (A) 90.2 %; Platelet Count 185 X 10*3/uL (140-440); RBC 2.49 X 10*6/uL (4.40-5.60); RDW 17.1 % (11.5-14.5); WBC 4.98 X 10*3/uL (4.50-10.00)
[2023-09-18 08:47] LABS: BUN/Creat Ratio 33.25 Ratio (12.00-20.00); Blood Urea Nitrogen 26.6 mg/dL (9.0-27.0); Carbon Dioxide 23.6 mmol/L (21.6-31.8); Chloride 100 mmol/L (96-109); Glucose 132 mg/dL (70-110); Potassium 4.9 mmol/L (3.5-5.5); Sodium 133 mmol/L (135-145)
[2023-09-18 08:48] LABS: Calcium 8.5 mg/dL (8.7-10.3)
--- NOTE | 2023-09-18 14:15 | P.PN ---
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 He has a h istory of chronic tobacco dependence, daily alcohol use, marijuana use, anxiety/depression, seizure disorder. He was brought into the emergency room yesterday after sustaining a fall from his chair. EMS found him to suspected him to spend most of his time in a chair as there were over half dozen urine bottles adjacent to the chair. The patient also had some right mandibular pain. He was to have remaining teeth extracted in September. He also has a area of eschar under the right mandible that he states was related to shaving and has not healed properly. CT scan of the right knee revealed distal lateral femoral condylar fracture. Small joint effusion. CT angiogram of the chest was of qu ite poor quality. No obvious central pulmonary embolism noted. No focal airspace consolidation. Tracheostomy tube in good position. There is debris or debris nearly occluding the tracheostomy tube near the trachea. The patient was seen today in consultation due to increasing shortness of breath cough and congestion. He has a very loose productive cough of significant sputum. He is maintaining O2 saturations in the 90s on 35% trach collar. He is afebrile. Slightly tachycardic. White count 6.4. Hemoglobin 8.3. Sodium 135. Potassium 4.6. Bicarb 23. BUN 34. Creatinine 0.95. Viral screen is negative. Procalcitonin 0.13. The patient is seen today September 18, 2023 and follow-up on the regular medical floor. He is currently sitting up in bed. Awake and alert in no acute distre ss. He is continued on trach collar at 40% FiO2 maintaining O2 saturation in the 90s. His procalcitonin was 0.13. He is continued on Zosyn. Dopplers of the lower extremity were negative. White count 4.9. Hemoglobin dropped to 6.3. Platelets 185. Sodium 133. Potassium 4.9. BUN 26. Creatinine 0.8. Glucose 132. He is status post 1 unit of packed red blood cells. Follow-up hemoglobin pending. He remains on DuoNeb and elations, Solu-Medrol, Robitussin. Objective - Vital Signs Vital signs: Vital Signs Temp 97.6 F 09/18/23 13:01 Pulse 101 H 09/18/23 13:53 Resp 16 09/18/23 13:53 BP 141/55 09/18/23 13:53 Pulse Ox 99 09/18/23 13:53 FiO2 45 09/18/23 08:07 Intake & Output 09/17/23 09/18/23 09/18/23 18:59 06:59 18:59 Intake Total 310 Output Total 600 Balance -600 310 Intake: Blood Product 310 Rc As-1 Unit 310 [id number] Output: Urine 600 Other: Voiding Method Urinal - Exam GENERAL EXAM: Alert, 63-year-old male, communicates with writing, on trach collar 40%, in no apparent distress. HEAD: Normocephalic. Eschar noted under right mandible EYES: Normal reaction of pupils, equal size. NOSE: Clear with pink turbinates. THROAT: No erythema or exudates. NECK: Tracheostomy tube secured in place. No masses, no JVD. CHEST: No chest wall deformity. LUNGS: Equal air entry with bilateral scattered rhonchi. CVS: S1 and S2 normal with no audible murmur, regular rhythm. ABDOMEN: Leg tube exit site clean and dry. No hepatosplenomegaly, normal bowel sounds, no guarding or rigidity. SPINE: No scoliosis or deformity SKIN: Areas of skin breakdown CENTRAL NERVOUS SYSTEM: No focal deficits, tone is normal in all 4 extremities. EXTREMITIES: There is no peripheral edema. No clubbing, no cyanosis. Peripheral pulses are intact. - Labs CBC & Chem 7: 09/18/23 03:49 09/18/23 03:49 Labs: Abnormal Lab Results - Last 24 Hours (Table) 09/18/23 09/18/23 09/18/23 Range/Units 03:49 03:49 05:30 RBC 2.49 L (4.40-5.60) X 10*6/uL Hgb 6.3 A* (13.0-17.0) g/dL Hct 20.2 L (39.6-50.0) % MCH 25.3 L (27.0-32.0) pg MCHC 31.2 L (32.0-37.0) g/dL RDW 17.1 H (11.5-14.5) % Lymphocytes # 0.45 L (0.90-5.00) X 10*3/uL Monocytes # 0.03 L (0.20-1.00) X 10*3/uL Eosinophils # 0 L (0.04-0.35) X 10*3/uL Sodium 133 L (135-145) mmol/L BUN/Creatinine Ratio 33.25 H (12.00-20.00) Ratio Glucose 132 H (70-110) mg/dL POC Glucose (mg/dL) 171 H (70-110) mg/dL Calcium 8.5 L (8.7-10.3) mg/dL Crossmatch 09/18/23 Range/Units 08:58 RBC (4.40-5.60) X 10*6/uL Hgb (13.0-17.0) g/dL Hct (39.6-50.0) % MCH (27.0-32.0) pg MCHC (32.0-37.0) g/dL RDW (11.5-14.5) % Lymphocytes # (0.90-5.00) X 10*3/uL Monocytes # (0.20-1.00) X 10*3/uL Eosinophils # (0.04-0.35) X 10*3/uL Sodium (135-145) mmol/L BUN/Creatinine Ratio (12.00-20.00) Ratio Glucose (70-110) mg/dL POC Glucose (mg/dL) (70-110) mg/dL Calcium (8.7-10.3) mg/dL Crossmatch See Detail Assessment and Plan Assessment: Right knee pain secondary to fall/trauma CT scan reveals distal lateral femoral condylar fracture. Small joint effusion Acute on chronic hypoxemic respiratory failure secondary to acute exacerbation of chronic obstructive pulmonary disease Anemia with hemoglobin of 6.3. Status post 1 unit packed red blood cells History of oral cancer with resection to the floor of the mouth, tongue, mandible and bilateral neck resection with chemo/radiation and with skin graft with subsequent tracheostomy and PEG tube placements. Back in 2016 at [facility] Right mandibular pain with plans for teeth extraction, eschar noted and nonhealing from shaving incident History of chronic tobacco dependence History of daily alcohol use History of seizure disorder History of marijuana use Plan: The patient was seen and evaluated Labs and medications reviewed Required 1 unit of packed red blood cells Continue Zosyn, bronchodilators, steroids Obtain a sputum sample Titrate the FiO2 as tolerated We will continue to follow I have personally seen and examined the patient, performed the documentation and the assessment and plan as written. Number of minutes spent on the visit: 10.
--- NOTE | 2023-09-18 15:26 | P.PN ---
Subjective Progress Note Date: 09/18/23 This is a 63-year-old gentleman with past medical history significant for oral cancer status post tracheostomy and PEG tube, admitted with right distal lateral femoral condylar fracture with small joint effusion, status post fall, acute COPD exacerbation , right mandibular pain with teeth extraction pending - nonhealing eschar right mandible from shaving incident , anemia and multiple other medical issues. Currently maintained on nebulized bronchodilators, steroids ,40% FiO2 trach collar with O2 sats in the 90s. Zosyn initiated yesterday, procalcitonin 0.13. Hemoglobin dropped to 6.3 and 1 unit packed RBCs ordered with recheck later tonight posttransfusion. No signs or symptoms of bleeding. No oozing/bleeding around trach site. Lovenox placed on hold. Dopplers of lower extremity reported negative. Afebrile, normal WBC. Renal function improving. Objective - Vital Signs Vital signs: Vital Signs Temp 97.6 F 09/18/23 13:01 Pulse 101 H 09/18/23 13:53 Resp 16 09/18/23 13:53 BP 141/55 09/18/23 13:53 Pulse Ox 99 09/18/23 13:53 FiO2 45 09/18/23 08:07 Intake & Output 09/17/23 09/18/23 09/18/23 18:59 06:59 18:59 Intake Total 310 Output Total 600 Balance -600 310 Weight 79.379 kg Intake: Blood Product 310 Rc As-1 Unit 310 [id number] Output: Urine 600 Other: Voiding Method Urinal - Exam GENERAL: Alert and oriented x3, sitting up in bed,NAD. Wearing trach collar. HEENT: Normocephalic, atraumatic. Pupils are round and equally reacting to light. No conjunctival pallor. CARDIOVASCULAR: S1 and S2 present. No murmurs, rubs, or gallops. -PULMONARY: Wearing trach collar, scattered rhonchi. -ABDOMEN: Soft, LUQ tenderness with mild guarding , No rebound tenderness, normoactive bowel sounds. No palpable organomegaly. PEG tube in place MUSCULOSKELETAL: No joint swelling or deformity. -EXTREMITIES: No cyanosis, clubbing, or pedal edema. right knee mildly swollen and some tenderness. NEUROLOGICAL: Gross neurological examination did not reveal any focal deficits. SKIN: No rashes. Warm and dry. - Labs CBC & Chem 7: 09/18/23 03:49 09/18/23 03:49 Labs: Abnormal Lab Results - Last 24 Hours (Table) 09/18/23 09/18/23 09/18/23 Range/Units 03:49 03:49 05:30 RBC 2.49 L (4.40-5.60) X 10*6/uL Hgb 6.3 A* (13.0-17.0) g/dL Hct 20.2 L (39.6-50.0) % MCH 25.3 L (27.0-32.0) pg MCHC 31.2 L (32.0-37.0) g/dL RDW 17.1 H (11.5-14.5) % Lymphocytes # 0.45 L (0.90-5.00) X 10*3/uL Monocytes # 0.03 L (0.20-1.00) X 10*3/uL Eosinophils # 0 L (0.04-0.35) X 10*3/uL Sodium 133 L (135-145) mmol/L BUN/Creatinine Ratio 33.25 H (12.00-20.00) Ratio Glucose 132 H (70-110) mg/dL POC Glucose (mg/dL) 171 H (70-110) mg/dL Calcium 8.5 L (8.7-10.3) mg/dL Crossmatch 09/18/23 Range/Units 08:58 RBC (4.40-5.60) X 10*6/uL Hgb (13.0-17.0) g/dL Hct (39.6-50.0) % MCH (27.0-32.0) pg MCHC (32.0-37.0) g/dL RDW (11.5-14.5) % Lymphocytes # (0.90-5.00) X 10*3/uL Monocytes # (0.20-1.00) X 10*3/uL Eosinophils # (0.04-0.35) X 10*3/uL Sodium (135-145) mmol/L BUN/Creatinine Ratio (12.00-20.00) Ratio Glucose (70-110) mg/dL POC Glucose (mg/dL) (70-110) mg/dL Calcium (8.7-10.3) mg/dL Crossmatch See Detail Assessment and Plan Assessment: Distal lateral femoral condylar fracture with small joint effusion of right knee status post fall, reported per CT Acute COPD exacerbation Anemia, status post 1 unit packed RBCs Acute on chronic hypoxic respiratory failure secondary to the above Right mandibular pain with teeth extraction pending Right mandibular nonhealing ,eschar secondary to reported shaving incident History of oral cancer, status post tracheostomy and PEG Chronic nicotine dependence History of daily alcohol use Seizure disorder History of marijuana use Plan: Continue on current medication regimen, monitoring and symptomatic treatment. Hemoglobin 6.3, 1 unit packed RBCs ordered with close monitoring of labs, repeat CBC tonight and in a.m.. aggressive pulmonary toileting with nebulized bronchodilators, steroids, Zosyn. Case management assisting with discharge planning. The impression and plan of care has been dictated as directed. : I performed a history and examination of this patient, discussed the same with the dictator. I agree with the dictator's note ,documented as a scribe. Any additional findings or plans will be noted.
[2023-09-18 21:04] LABS: Anisocytosis Slight; HCT 28.9 % (39.0-53.0); HGB 9.2 gm/dL (13.0-17.5); Hypochromasia Moderate; MCH 26.9 pg (25.0-35.0); MCHC 31.9 g/dL (31.0-37.0); MCV 84.4 fL (80.0-100.0); Mean Platelet Volume 8.5; Platelet Count 236 k/uL (150-450); RBC 3.43 m/uL (4.30-5.90); RDW 16.4 % (11.5-15.5); WBC 8.6 k/uL (3.8-10.6)
[2023-09-19 09:32] LABS: Basophils # (A) 0.01 X 10*3/uL (0.00-0.10); Basophils % (A) 0.1 %; Eosinophils # (A) 0 X 10*3/uL (0.04-0.35); Eosinophils % (A) 0 %; HCT 28.5 % (39.6-50.0); HGB 8.7 g/dL (13.0-17.0); Lymphocytes # (A) 0.61 X 10*3/uL (0.90-5.00); Lymphocytes % (A) 5.7 %; MCH 25.7 pg (27.0-32.0); MCHC 30.5 g/dL (32.0-37.0); MCV 84.1 FL (80.0-97.0); Mean Platelet Volume 10.9 FL (9.5-12.2); Monocytes # (A) 0.38 X 10*3/uL (0.20-1.00); Monocytes % (A) 3.5 %; NRBC Per 100 WBC 0 X 10*3/uL (0.00-0.01); Neutrophils # (A) 9.66 X 10*3/uL (1.80-7.70); Neutrophils % (A) 90.1 %; Platelet Count 261 X 10*3/uL (140-440); RBC 3.39 X 10*6/uL (4.40-5.60); RBC Morphology Normal (Normal); RDW 17.1 % (11.5-14.5); WBC 10.72 X 10*3/uL (4.50-10.00)
[2023-09-19 09:46] LABS: BUN/Creat Ratio 32.44 Ratio (12.00-20.00); Blood Urea Nitrogen 29.2 mg/dL (9.0-27.0); Calcium 9.2 mg/dL (8.7-10.3); Carbon Dioxide 24.2 mmol/L (21.6-31.8); Chloride 100 mmol/L (96-109); Glucose 175 mg/dL (70-110); Potassium 4.9 mmol/L (3.5-5.5); Sodium 136 mmol/L (135-145)
--- NOTE | 2023-09-19 13:34 | P.PN ---
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 He has a h istory of chronic tobacco dependence, daily alcohol use, marijuana use, anxiety/depression, seizure disorder. He was brought into the emergency room yesterday after sustaining a fall from his chair. EMS found him to suspected him to spend most of his time in a chair as there were over half dozen urine bottles adjacent to the chair. The patient also had some right mandibular pain. He was to have remaining teeth extracted in September. He also has a area of eschar under the right mandible that he states was related to shaving and has not healed properly. CT scan of the right knee revealed distal lateral femoral condylar fracture. Small joint effusion. CT angiogram of the chest was of qu ite poor quality. No obvious central pulmonary embolism noted. No focal airspace consolidation. Tracheostomy tube in good position. There is debris or debris nearly occluding the tracheostomy tube near the trachea. The patient was seen today in consultation due to increasing shortness of breath cough and congestion. He has a very loose productive cough of significant sputum. He is maintaining O2 saturations in the 90s on 35% trach collar. He is afebrile. Slightly tachycardic. White count 6.4. Hemoglobin 8.3. Sodium 135. Potassium 4.6. Bicarb 23. BUN 34. Creatinine 0.95. Viral screen is negative. Procalcitonin 0.13. The patient is seen today September 18, 2023 and follow-up on the regular medical floor. He is currently sitting up in bed. Awake and alert in no acute distre ss. He is continued on trach collar at 40% FiO2 maintaining O2 saturation in the 90s. His procalcitonin was 0.13. He is continued on Zosyn. Dopplers of the lower extremity were negative. White count 4.9. Hemoglobin dropped to 6.3. Platelets 185. Sodium 133. Potassium 4.9. BUN 26. Creatinine 0.8. Glucose 132. He is status post 1 unit of packed red blood cells. Follow-up hemoglobin pending. He remains on DuoNeb and elations, Solu-Medrol, Robitussin. The patient is seen today September 19, 2023 in follow-up on the regular medical floor. He is awake and alert in no acute distress. Resting in bed. Maintaining good O2 saturations in the 90s on 40% trach collar. He is afebrile. Hemodynamically stable. He is status post 1 unit of packed red blood cells this admission. Current hemoglobin 8.7. Platelets 261. Count 10.7. Sodium 136. Potassium 4.9. Bicarb 24. BUN 30. Creatinine 0.9. Glucose 175. He remains on DuoNeb ventilations, Solu-Medrol, antibiotics in the form of Zosyn. Objective - Vital Signs Vital signs: Vital Signs Temp 96.9 F L 09/19/23 08:00 Pulse 88 09/19/23 09:02 Resp 21 09/19/23 08:00 BP 138/91 09/19/23 08:00 Pulse Ox 94 L 09/19/23 08:00 FiO2 40 09/19/23 09:02 Intake & Output 09/18/23 09/19/23 09/19/23 18:59 06:59 18:59 Intake Total 884 1051 Output Total 600 900 Balance 284 151 Weight 79.379 kg Intake: Intake, IV Titration 340 Amount Piperacillin-Tazobactam 3 100 .375 gm In Sodium Chloride 0.9% 100 ml @ 25 mls/hr IVPB Q8HR [facility] Rx# :[id number] Sodium Chloride 0.9% 1, 240 000 ml @ 20 mls/hr IV . Q24H [facility] Rx#:[id number] Tube Feeding 474 711 Blood Product 310 Rc As-1 Unit 310 [id number] Other 100 Output: Urine 600 900 - Exam GENERAL EXAM: Alert, 63-year-old male, on trach collar 40%, in no apparent distress. HEAD: Normocephalic. Eschar noted under right mandible EYES: Normal reaction of pupils, equal size. NOSE: Clear with pink turbinates. THROAT: No erythema or exudates. NECK: Tracheostomy tube secured in place. No masses, no JVD. CHEST: No chest wall deformity. LUNGS: Equal air entry with bilateral scattered rhonchi. CVS: S1 and S2 normal with no audible murmur, regular rhythm. ABDOMEN: Leg tube exit site clean and dry. No hepatosplenomegaly, normal bowel sounds, no guarding or rigidity. SPINE: No scoliosis or deformity SKIN: Areas of skin breakdown CENTRAL NERVOUS SYSTEM: No focal deficits, tone is normal in all 4 extremities. EXTREMITIES: There is no peripheral edema. No clubbing, no cyanosis. Peripheral pulses are intact. - Labs CBC & Chem 7: 09/19/23 05:17 09/19/23 05:17 Labs: Abnormal Lab Results - Last 24 Hours (Table) 09/18/23 09/18/23 09/19/23 Range/Units 08:58 20:43 05:17 WBC 10.72 H (4.50-10.00) X 10*3/uL RBC 3.43 L 3.39 L (4.30-5.90) m/uL Hgb 9.2 L 8.7 L (13.0-17.5) gm/dL Hct 28.9 L 28.5 L (39.0-53.0) % MCH 25.7 L (27.0-32.0) pg MCHC 30.5 L (32.0-37.0) g/dL RDW 16.4 H 17.1 H (11.5-15.5) % Immature Gran # 0.06 H (0.00-0.04) X 10*3/uL Neutrophils # 9.66 H (1.80-7.70) X 10*3/uL Lymphocytes # 0.61 L (0.90-5.00) X 10*3/uL Eosinophils # 0 L (0.04-0.35) X 10*3/uL BUN (9.0-27.0) mg/dL BUN/Creatinine Ratio (12.00-20.00) Ratio Glucose (70-110) mg/dL Crossmatch See Detail 09/19/23 Range/Units 05:17 WBC (4.50-10.00) X 10*3/uL RBC (4.30-5.90) m/uL Hgb (13.0-17.5) gm/dL Hct (39.0-53.0) % MCH (27.0-32.0) pg MCHC (32.0-37.0) g/dL RDW (11.5-15.5) % Immature Gran # (0.00-0.04) X 10*3/uL Neutrophils # (1.80-7.70) X 10*3/uL Lymphocytes # (0.90-5.00) X 10*3/uL Eosinophils # (0.04-0.35) X 10*3/uL BUN 29.2 H (9.0-27.0) mg/dL BUN/Creatinine Ratio 32.44 H (12.00-20.00) Ratio Glucose 175 H (70-110) mg/dL Crossmatch Microbiology - Last 24 Hours (Table) 09/18/23 19:30 Gram Stain - Final Sputum Sputum Culture - Final Assessment and Plan Assessment: Right knee pain secondary to fall/trauma CT scan reveals distal lateral femoral condylar fracture. Small joint effusion Acute on chronic hypoxemic respiratory failure secondary to acute exacerbation of chronic obstructive pulmonary disease Anemia with hemoglobin of 6.3. Status post 1 unit packed red blood cells, current hemoglobin 8.7 History of oral cancer with resection to the floor of the mouth, tongue, mandible and bilateral neck resection with chemo/radiation and with skin graft with subsequent tracheostomy and PEG tube placements. Back in 2017 at [facility] Right mandibular pain with plans for teeth extraction, eschar noted and nonhealing from shaving incident History of chronic tobacco dependence History of daily alcohol use History of seizure disorder History of marijuana use Plan: The patient was seen and evaluated Labs and medications reviewed Continue Zosyn, bronchodilators, steroids Sputum sample revealed no growth Titrate the FiO2 as tolerated Probable discharge in the a.m. We will continue to follow I have personally seen and examined the patient, performed the documentation and the assessment and plan as written. Number of minutes spent on the visit: 10.
--- NOTE | 2023-09-19 16:35 | P.PN ---
Subjective Progress Note Date: 09/19/23 This is a 63-year-old gentleman with past medical history significant for oral cancer status post tracheostomy and PEG tube, admitted with right distal lateral femoral condylar fracture with small joint effusion, status post fall, acute COPD exacerbation , right mandibular pain with teeth extraction pending - nonhealing eschar right mandible from shaving incident , anemia and multiple other medical issues. Currently maintained on nebulized bronchodilators, steroids ,40% FiO2 trach collar with O2 sats in the 90s. Zosyn initiated yesterday, procalcitonin 0.13. Hemoglobin dropped to 6.3 and 1 unit packed RBCs ordered with recheck later tonight posttransfusion. No signs or symptoms of bleeding. No oozing/bleeding around trach site. Lovenox placed on hold. Dopplers of lower extremity reported negative. Afebrile, normal WBC. Renal function improving. 09/19/2023 continues on nebulized bronchodilators, IV steroids 40% trach collar maintaining O2 sats in the 90s. maintained on IV antibiotics, Zosyn, with decreased tenderness and edema. Reports tender jaw. Received 1 unit of packed RBCs yesterday, current hemoglobin 8.7, platelets 261. Denies chest pain, palpitations or shortness of breath. Afebrile, WBC 10.72. BUN 29.2, creatinine 0.9. Objective - Vital Signs Vital signs: Vital Signs Temp 97.5 F L 09/19/23 14:00 Pulse 100 09/19/23 15:06 Resp 20 09/19/23 14:00 BP 143/89 09/19/23 14:00 Pulse Ox 96 09/19/23 14:00 FiO2 40 09/19/23 09:02 Intake & Output 09/18/23 09/19/23 09/19/23 18:59 06:59 18:59 Intake Total 884 1051 Output Total 600 900 Balance 284 151 Weight 79.379 kg Intake: Intake, IV Titration 340 Amount Piperacillin-Tazobactam 3 100 .375 gm In Sodium Chloride 0.9% 100 ml @ 25 mls/hr IVPB Q8HR [facility] Rx# :[id number] Sodium Chloride 0.9% 1, 240 000 ml @ 20 mls/hr IV . Q24H [facility] Rx#:[id number] Tube Feeding 474 711 Blood Product 310 Rc As-1 Unit 310 [id number] Other 100 Output: Urine 600 900 Other: # Bowel Movements 1 - Exam GENERAL: Alert and oriented x3, sitting up in bed,NAD. Wearing trach collar. HEENT: Normocephalic, atraumatic. Pupils are round and equally reacting to light. No conjunctival pallor. CARDIOVASCULAR: S1 and S2 present. No murmurs, rubs, or gallops. -PULMONARY: Wearing trach collar, scattered rhonchi. -ABDOMEN: Soft, LUQ tenderness with mild guarding , No rebound tenderness, normoactive bowel sounds. PEG tube. MUSCULOSKELETAL: No joint swelling or deformity. -EXTREMITIES: No cyanosis, clubbing, or pedal edema. right knee mildly swollen and some tenderness. NEUROLOGICAL: Gross neurological examination did not reveal any focal deficits. SKIN: No rashes. Warm and dry. - Labs CBC & Chem 7: 09/19/23 05:17 09/19/23 05:17 Labs: Abnormal Lab Results - Last 24 Hours (Table) 09/18/23 09/19/23 09/19/23 Range/Units 20:43 05:17 05:17 WBC 10.72 H (4.50-10.00) X 10*3/uL RBC 3.43 L 3.39 L (4.30-5.90) m/uL Hgb 9.2 L 8.7 L (13.0-17.5) gm/dL Hct 28.9 L 28.5 L (39.0-53.0) % MCH 25.7 L (27.0-32.0) pg MCHC 30.5 L (32.0-37.0) g/dL RDW 16.4 H 17.1 H (11.5-15.5) % Immature Gran # 0.06 H (0.00-0.04) X 10*3/uL Neutrophils # 9.66 H (1.80-7.70) X 10*3/uL Lymphocytes # 0.61 L (0.90-5.00) X 10*3/uL Eosinophils # 0 L (0.04-0.35) X 10*3/uL BUN 29.2 H (9.0-27.0) mg/dL BUN/Creatinine Ratio 32.44 H (12.00-20.00) Ratio Glucose 175 H (70-110) mg/dL Microbiology - Last 24 Hours (Table) 09/18/23 19:30 Gram Stain - Final Sputum Sputum Culture - Final Assessment and Plan Assessment: Distal lateral femoral condylar fracture with small joint effusion of right knee status post fall, reported per CT Acute COPD exacerbation Anemia, status post 1 unit packed RBCs Acute on chronic hypoxic respiratory failure secondary to the above Right mandibular pain with teeth extraction pending Right mandibular nonhealing ,eschar secondary to reported shaving incident History of oral cancer, status post tracheostomy and PEG Chronic nicotine dependence History of daily alcohol use Seizure disorder History of marijuana use Plan: Continue on current medication regimen, monitoring and symptomatic treatment. Maintain aggressive pulmonary toileting with nebulized bronchodilators, steroids, Zosyn. Discharge planning in progress for tomorrow pending final DC recommendations and clearance per pulmonary. The impression and plan of care has been dictated as directed. : I performed a history and examination of this patient, discussed the same with the dictator. I agree with the dictator's note ,documented as a scribe. Any additional findings or plans will be noted.
[2023-09-19] MEDS: PSYLLIUM HUSK 100% 6 GM PACKET PO SCH (22:15)
--- NOTE | 2023-09-20 10:48 | P.DS ---
Providers Date of admission: 09/16/23 18:48 Expected date of discharge: 09/20/23 Attending physician: Phill Tan MD Consults: 09/16/23 18:41 Consult Physician Routine Consulting Provider: Vamsi Townsend Consult Reason/Comments: Knee pain Do you want consulting provider notified?: Yes 09/17/23 09:23 Consult Physician Routine Consulting Provider: Lillian Dukes Consult Reason/Comments: hypoxia Do you want consulting provider notified?: Yes Primary care physician: Fátima Velarde Hospital Course: Final Diagnosis: Distal lateral femoral condylar fracture with small joint effusion of right knee status post fall, reported per CT, orthopedic surgery following Acute COPD exacerbation Anemia, status post 1 unit packed RBCs Acute on chronic hypoxic respiratory failure secondary to the above Right mandibular pain with teeth extraction pending Right mandibular nonhealing ,eschar secondary to reported shaving incident History of oral cancer, status post tracheostomy and PEG Chronic nicotine dependence History of daily alcohol use Seizure disorder History of marijuana use Hospital course:This is a 63-year-old gentleman with past medical history significant for oral cancer status post tracheostomy and PEG tube, admitted with right distal lateral femoral condylar fracture with small joint effusion, status post fall, acute COPD exacerbation , right mandibular pain with teeth extraction pending -nonhealing eschar right mandible from shaving incident , anemia and multiple other medical issues. Currently maintained on nebulized bronchodilators, steroids ,40% FiO2 trach collar with O2 sats in the 90s. Zosyn initiated yesterday, procalcitonin 0.13. Hemoglobin dropped to 6.3 and 1 unit packed RBCs ordered with recheck later tonight posttransfusion. No signs or symptoms of bleeding. No oozing/bleeding around trach site. Lovenox placed on hold. Dopplers of lower extremity reported negative. Afebrile, normal WBC. Renal function improving. 09/19/2023 continues on nebulized bronchodilators, IV steroids 40% trach collar maintaining O2 sats in the 90s. maintained on IV antibiotics, Zosyn, with decreased tenderness and edema. Reports tender jaw. Received 1 unit of packed RBCs yesterday, current hemoglobin 8.7, platelets 261. Denies chest pain, palpitations or shortness of breath. Afebrile, WBC 10.72. BUN 29.2, creatinine 0.9. Significant clinical improvement. Continues on Zosyn, IV steroids, nebulized bronchodilators. Maintaining O2 sats in the mid 90s on 40% trach collar. Denies chest pain, palpitations or shortness of breath. Afebrile. Pain controlled. Patient will be discharged to either subacute rehab or home with home care today in a stable condition with guarded prognosis pending final DC recommendations and clearance per pulmonary and orthopedic surgery. The impression and plan of care has been dictated as directed. : I performed a history and examination of this patient, discussed the same with the dictator. I agree with the dictator's note ,documented as a scribe. Any additional findings or plans will be noted. Patient Condition at Discharge: Stable Plan - Discharge Summary Discharge Rx Participant: No New Discharge Prescriptions: New Amoxic-Pot Clav 400-57Mg/5Ml [Augmentin 400-57 mg/5 ml Susp] 10 ml PO Q12H #200 ml Ipratropium-Albuterol Nebulize [Duoneb 0.5 mg-3 mg/3 ml Soln] 3 ml INHALATION RT-QID #120 each predniSONE 10 mg PEG/G-TUBE DIRECTED #30 tab Continue Baclofen [Lioresal] 10 mg PEG/G-TUBE TID Levothyroxine Sodium 25 mcg PEG/G-TUBE DAILY lamoTRIgine [LaMICtal] 25 mg PEG/G-TUBE BID Amitriptyline HCl [Elavil] 25 mg PEG/G-TUBE HS Sodium Chloride Tab 1 gm PEG/G-TUBE DAILY #30 tab Latanoprost [Latanoprost 0.005%] 1 drop BOTH EYES HS Metoprolol Succinate [[place] Sprinkle] 25 mg PEG/G-TUBE BID Gabapentin 300 mg PEG/G-TUBE TID #9 cap busPIRone HCL 5 mg PEG/G-TUBE BID Spironolactone [Aldactone] 25 mg PEG/G-TUBE DAILY #30 tab lisinopriL [Zestril] 2.5 mg PEG/G-TUBE DAILY #30 tab Pantoprazole Sodium [Protonix] 20 mg PEG/G-TUBE DAILY Midodrine [ProAmatine] 5 mg PEG/G-TUBE TID Famotidine [Pepcid] 20 mg PEG/G-TUBE DAILY Prochlorperazine [Compazine] 10 mg PEG/G-TUBE DAILY Changed traMADol HCl [Ultram] 50 mg PEG/G-TUBE Q6HR PRN #12 tab PRN Reason: Pain Discontinued HYDROcodone/APAP 5-325MG [[place] 5-325] 1 tab PEG/G-TUBE BID Ibuprofen [Motrin] 800 mg PEG/G-TUBE TID Discharge Medication List Amitriptyline HCl [Elavil] 25 mg PEG/G-TUBE HS 03/22/22 [History] Baclofen [Lioresal] 10 mg PEG/G-TUBE TID 03/22/22 [History] Levothyroxine Sodium 25 mcg PEG/G-TUBE DAILY 03/22/22 [History] busPIRone HCL 5 mg PEG/G-TUBE BID 03/22/22 [History] lamoTRIgine [LaMICtal] 25 mg PEG/G-TUBE BID 03/22/22 [History] Spironolactone [Aldactone] 25 mg PEG/G-TUBE DAILY #30 tab 03/28/22 [Rx] lisinopriL [Zestril] 2.5 mg PEG/G-TUBE DAILY #30 tab 03/28/22 [Rx] Sodium Chloride Tab 1 gm PEG/G-TUBE DAILY #30 tab 05/02/22 [Rx] Pantoprazole Sodium [Protonix] 20 mg PEG/G-TUBE DAILY 08/27/22 [History] Midodrine [ProAmatine] 5 mg PEG/G-TUBE TID 02/01/23 [History] Famotidine [Pepcid] 20 mg PEG/G-TUBE DAILY 09/01/23 [History] Latanoprost [Latanoprost 0.005%] 1 drop BOTH EYES HS 09/01/23 [History] Metoprolol Succinate [Kapsp[place] Sprinkle] 25 mg PEG/G-TUBE BID 09/01/23 [History] Prochlorperazine [Compazine] 10 mg PEG/G-TUBE DAILY 09/01/23 [History] Amoxic-Pot Clav 400-57Mg/5Ml [Augmentin 400-57 mg/5 ml Susp] 10 ml PO Q12H #200 ml 09/20/23 [Rx] Gabapentin 300 mg PEG/G-TUBE TID #9 cap 09/20/23 [Rx] Ipratropium-Albuterol Nebulize [Duoneb 0.5 mg-3 mg/3 ml Soln] 3 ml INHALATION RT-QID #120 each 09/20/23 [Rx] predniSONE 10 mg PEG/G-TUBE DIRECTED #30 tab 09/20/23 [Rx] traMADol HCl [Ultram] 50 mg PEG/G-TUBE Q6HR PRN #12 tab 09/20/23 [Rx] Follow up Appointment(s)/Referral(s): Tegan Mckinley [NON-STAFF] - As Needed (Right hinged knee brace) Phill Tan MD [STAFF PHYSICIAN] - 1 Week (After DC from subacute rehab) Patient Instructions/Handouts: Pain Management (DC), Fall Prevention (DC) Discharge Disposition: TRANSFER TO SNF/ECF
--- NOTE | 2023-09-20 13:38 | P.PN ---
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 He has a h istory of chronic tobacco dependence, daily alcohol use, marijuana use, anxiety/depression, seizure disorder. He was brought into the emergency room yesterday after sustaining a fall from his chair. EMS found him to suspected him to spend most of his time in a chair as there were over half dozen urine bottles adjacent to the chair. The patient also had some right mandibular pain. He was to have remaining teeth extracted in September. He also has a area of eschar under the right mandible that he states was related to shaving and has not healed properly. CT scan of the right knee revealed distal lateral femoral condylar fracture. Small joint effusion. CT angiogram of the chest was of qu ite poor quality. No obvious central pulmonary embolism noted. No focal airspace consolidation. Tracheostomy tube in good position. There is debris or debris nearly occluding the tracheostomy tube near the trachea. The patient was seen today in consultation due to increasing shortness of breath cough and congestion. He has a very loose productive cough of significant sputum. He is maintaining O2 saturations in the 90s on 35% trach collar. He is afebrile. Slightly tachycardic. White count 6.4. Hemoglobin 8.3. Sodium 135. Potassium 4.6. Bicarb 23. BUN 34. Creatinine 0.95. Viral screen is negative. Procalcitonin 0.13. The patient is seen today September 18, 2023 and follow-up on the regular medical floor. He is currently sitting up in bed. Awake and alert in no acute distre ss. He is continued on trach collar at 40% FiO2 maintaining O2 saturation in the 90s. His procalcitonin was 0.13. He is continued on Zosyn. Dopplers of the lower extremity were negative. White count 4.9. Hemoglobin dropped to 6.3. Platelets 185. Sodium 133. Potassium 4.9. BUN 26. Creatinine 0.8. Glucose 132. He is status post 1 unit of packed red blood cells. Follow-up hemoglobin pending. He remains on DuoNeb and elations, Solu-Medrol, Robitussin. The patient is seen today September 19, 2023 in follow-up on the regular medical floor. He is awake and alert in no acute distress. Resting in bed. Maintaining good O2 saturations in the 90s on 40% trach collar. He is afebrile. Hemodynamically stable. He is status post 1 unit of packed red blood cells this admission. Current hemoglobin 8.7. Platelets 261. Count 10.7. Sodium 136. Potassium 4.9. Bicarb 24. BUN 30. Creatinine 0.9. Glucose 175. He remains on DuoNeb ventilations, Solu-Medrol, antibiotics in the form of Zosyn. The patient is seen today September 20, 2023 and follow-up on the regular medical floor. He is resting quite comfortably in bed. Awake and alert in no acute distress. Maintaining O2 saturations in the 90s on 40% trach collar. Sputum culture revealed no growth. New labs today. Patient remains on Zosyn. Continued on bronchodilators, Solu-Medrol. Objective - Vital Signs Vital signs: Vital Signs Temp 97.6 F 09/20/23 06:50 Pulse 110 H 09/20/23 12:35 Resp 19 09/20/23 06:50 BP 135/90 09/20/23 11:16 Pulse Ox 95 09/20/23 08:20 FiO2 40 09/20/23 08:01 Intake & Output 09/19/23 09/20/23 09/20/23 18:59 06:59 18:59 Output Total 200 850 600 Balance -200 -850 -600 Output: Urine 200 850 600 Other: Voiding Method Urinal # Bowel Movements 1 1 - Exam GENERAL EXAM: Alert, pleasant 63-year-old male, resting comfortably in bed, on trach collar 40%, in no apparent distress. HEAD: Normocephalic. Eschar noted under right mandible EYES: Normal reaction of pupils, equal size. NOSE: Clear with pink turbinates. THROAT: No erythema or exudates. NECK: Tracheostomy tube secured in place. No masses, no JVD. CHEST: No chest wall deformity. LUNGS: Equal air entry with bilateral scattered rhonchi. CVS: S1 and S2 normal with no audible murmur, regular rhythm. ABDOMEN: Leg tube exit site clean and dry. No hepatosplenomegaly, normal bowel sounds, no guarding or rigidity. SPINE: No scoliosis or deformity SKIN: Areas of skin breakdown CENTRAL NERVOUS SYSTEM: No focal deficits, tone is normal in all 4 extremities. EXTREMITIES: There is no peripheral edema. No clubbing, no cyanosis. Peripheral pulses are intact. - Labs CBC & Chem 7: 09/19/23 05:17 09/19/23 05:17 Labs: Microbiology - Last 24 Hours (Table) 09/19/23 09:12 Gram Stain - Preliminary Sputum 09/18/23 19:30 Gram Stain - Final Sputum Sputum Culture - Final Assessment and Plan Assessment: Right knee pain secondary to fall/trauma CT scan reveals distal lateral femoral condylar fracture. Small joint effusion Acute on chronic hypoxemic respiratory failure secondary to acute exacerbation of chronic obstructive pulmonary disease Anemia with hemoglobin of 6.3. Status post 1 unit packed red blood cells, current hemoglobin 8.7 History of oral cancer with resection to the floor of the mouth, tongue, mandible and bilateral neck resection with chemo/radiation and with skin graft with subsequent tracheostomy and PEG tube placements. Back in 2016 at [facility] Right mandibular pain with plans for teeth extraction, eschar noted and non healing from shaving incident History of chronic tobacco dependence History of daily alcohol use History of seizure disorder History of marijuana use Plan: The patient was seen and evaluated Medications reviewed Continue antibiotics, bronchodilators, steroids Cleared for discharge from the pulmonary standpoint I have personally seen and examined the patient, performed the documentation and the assessment and plan as written. Number of minutes spent on the visit: 10.
[2023-09-20] MEDS: traMADol 50 MG TAB PEG/G-TUBE PRN (16:58)
--- NOTE | 2023-09-21 13:42 | P.PN ---
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 He has a h istory of chronic tobacco dependence, daily alcohol use, marijuana use, anxiety/depression, seizure disorder. He was brought into the emergency room yesterday after sustaining a fall from his chair. EMS found him to suspected him to spend most of his time in a chair as there were over half dozen urine bottles adjacent to the chair. The patient also had some right mandibular pain. He was to have remaining teeth extracted in September. He also has a area of eschar under the right mandible that he states was related to shaving and has not healed properly. CT scan of the right knee revealed distal lateral femoral condylar fracture. Small joint effusion. CT angiogram of the chest was of qu ite poor quality. No obvious central pulmonary embolism noted. No focal airspace consolidation. Tracheostomy tube in good position. There is debris or debris nearly occluding the tracheostomy tube near the trachea. The patient was seen today in consultation due to increasing shortness of breath cough and congestion. He has a very loose productive cough of significant sputum. He is maintaining O2 saturations in the 90s on 35% trach collar. He is afebrile. Slightly tachycardic. White count 6.4. Hemoglobin 8.3. Sodium 135. Potassium 4.6. Bicarb 23. BUN 34. Creatinine 0.95. Viral screen is negative. Procalcitonin 0.13. The patient is seen today September 18, 2023 and follow-up on the regular medical floor. He is currently sitting up in bed. Awake and alert in no acute distre ss. He is continued on trach collar at 40% FiO2 maintaining O2 saturation in the 90s. His procalcitonin was 0.13. He is continued on Zosyn. Dopplers of the lower extremity were negative. White count 4.9. Hemoglobin dropped to 6.3. Platelets 185. Sodium 133. Potassium 4.9. BUN 26. Creatinine 0.8. Glucose 132. He is status post 1 unit of packed red blood cells. Follow-up hemoglobin pending. He remains on DuoNeb and elations, Solu-Medrol, Robitussin. The patient is seen today September 19, 2023 in follow-up on the regular medical floor. He is awake and alert in no acute distress. Resting in bed. Maintaining good O2 saturations in the 90s on 40% trach collar. He is afebrile. Hemodynamically stable. He is status post 1 unit of packed red blood cells this admission. Current hemoglobin 8.7. Platelets 261. Count 10.7. Sodium 136. Potassium 4.9. Bicarb 24. BUN 30. Creatinine 0.9. Glucose 175. He remains on DuoNeb ventilations, Solu-Medrol, antibiotics in the form of Zosyn. The patient is seen today September 20, 2023 and follow-up on the regular medical floor. He is resting quite comfortably in bed. Awake and alert in no acute distress. Maintaining O2 saturations in the 90s on 40% trach collar. Sputum culture revealed no growth. New labs today. Patient remains on Zosyn. Continued on bronchodilators, Solu-Medrol. The patient is seen today September 21, 2023 in follow-up on the regular medical floor. He is awake and alert in no acute distress. Sitting up in bed. Maintaining good O2 saturations in the 90s on 40% trach collar. He has normal saline at 20 mph. He is continued on Zosyn. He was found to have Pseudomonas aeruginosa and presumptive Staph aureus his sputum. No new labs today. Remains on bronchodilators. Continued on Solu-Medrol. Objective - Vital Signs Vital signs: Vital Signs Temp 96.5 F L 09/21/23 06:55 Pulse 104 H 09/21/23 12:35 Resp 19 09/21/23 06:55 BP 134/77 09/21/23 12:10 Pulse Ox 95 09/21/23 06:55 FiO2 35 09/21/23 09:26 Intake & Output 09/20/23 09/21/23 09/21/23 18:59 06:59 18:59 Intake Total 487 Output Total 800 Balance -800 487 Weight 79.379 kg Intake: Oral 250 Tube Feeding 237 Output: Urine 800 Other: Voiding Method Urinal # Bowel Movements 1 - Exam GENERAL EXAM: Alert, 63-year-old male, sitting up in bed, on trach collar 40%, in no apparent distress. HEAD: Normocephalic. Eschar noted under right mandible EYES: Normal reaction of pupils, equal size. NOSE: Clear with pink turbinates. THROAT: No erythema or exudates. NECK: Tracheostomy tube secured in place. No masses, no JVD. CHEST: No chest wall deformity. LUNGS: Equal air entry with bilateral scattered rhonchi. CVS: S1 and S2 normal with no audible murmur, regular rhythm. ABDOMEN: PEG tube exit site clean and dry. No hepatosplenomegaly, normal bowel sounds, no guarding or rigidity. SPINE: No scoliosis or deformity SKIN: Areas of skin breakdown CENTRAL NERVOUS SYSTEM: No focal deficits, tone is normal in all 4 extremities. EXTREMITIES: There is no peripheral edema. No clubbing, no cyanosis. Peripheral pulses are intact. - Labs CBC & Chem 7: 09/19/23 05:17 09/19/23 05:17 Labs: Microbiology - Last 24 Hours (Table) 09/19/23 09:12 Gram Stain - Preliminary Sputum Sputum Culture - Preliminary Pseudomonas aeruginosa Presumptive Staph aureus Assessment and Plan Assessment: Right knee pain secondary to fall/trauma CT scan reveals distal lateral femoral condylar fracture. Small joint effusion Acute on chronic hypoxemic respiratory failure secondary to acute exacerbation of chronic obstructive pulmonary disease Anemia with hemoglobin of 6.3. Status post 1 unit packed red blood cells, most recent hemoglobin 8.7 History of oral cancer with resection to the floor of the mouth, tongue, mandible and bilateral neck resection with chemo/radiation and with skin graft with subsequent tracheostomy and PEG tube placements. Back in 2017 at [facility] Right mandibular pain with plans for teeth extraction, eschar noted and nonhealing from shaving incident History of chronic tobacco dependence History of daily alcohol use History of seizure disorder History of marijuana use Plan: The patient was seen and evaluated Medications reviewed Solu-Medrol discontinued Initiated on prednisone taper Zosyn discontinued Initiated on Augmentin Cleared for discharge from the pulmonary standpoint I have personally seen and examined the patient, performed the documentation and the assessment and plan as written. Number of minutes spent on the visit: 10.
[2023-09-21] MEDS: AMOXIC-POT CLAV 875-125MG 1 EACH TAB PO SCH (21:42)
[2023-09-22] MEDS: predniSONE 10 MG TAB PO SCH (10:28)
[2023-09-22] MEDS ORDERED: VANCOMYCIN IV PER PHARMACY 1 EACH MISC MISCELLANE PRN (14:15)
--- NOTE | 2023-09-22 14:15 | P.PN ---
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 He has a h istory of chronic tobacco dependence, daily alcohol use, marijuana use, anxiety/depression, seizure disorder. He was brought into the emergency room yesterday after sustaining a fall from his chair. EMS found him to suspected him to spend most of his time in a chair as there were over half dozen urine bottles adjacent to the chair. The patient also had some right mandibular pain. He was to have remaining teeth extracted in September. He also has a area of eschar under the right mandible that he states was related to shaving and has not healed properly. CT scan of the right knee revealed distal lateral femoral condylar fracture. Small joint effusion. CT angiogram of the chest was of qu ite poor quality. No obvious central pulmonary embolism noted. No focal airspace consolidation. Tracheostomy tube in good position. There is debris or debris nearly occluding the tracheostomy tube near the trachea. The patient was seen today in consultation due to increasing shortness of breath cough and congestion. He has a very loose productive cough of significant sputum. He is maintaining O2 saturations in the 90s on 35% trach collar. He is afebrile. Slightly tachycardic. White count 6.4. Hemoglobin 8.3. Sodium 135. Potassium 4.6. Bicarb 23. BUN 34. Creatinine 0.95. Viral screen is negative. Procalcitonin 0.13. The patient is seen today September 18, 2023 and follow-up on the regular medical floor. He is currently sitting up in bed. Awake and alert in no acute distre ss. He is continued on trach collar at 40% FiO2 maintaining O2 saturation in the 90s. His procalcitonin was 0.13. He is continued on Zosyn. Dopplers of the lower extremity were negative. White count 4.9. Hemoglobin dropped to 6.3. Platelets 185. Sodium 133. Potassium 4.9. BUN 26. Creatinine 0.8. Glucose 132. He is status post 1 unit of packed red blood cells. Follow-up hemoglobin pending. He remains on DuoNeb and elations, Solu-Medrol, Robitussin. The patient is seen today September 19, 2023 in follow-up on the regular medical floor. He is awake and alert in no acute distress. Resting in bed. Maintaining good O2 saturations in the 90s on 40% trach collar. He is afebrile. Hemodynamically stable. He is status post 1 unit of packed red blood cells this admission. Current hemoglobin 8.7. Platelets 261. Count 10.7. Sodium 136. Potassium 4.9. Bicarb 24. BUN 30. Creatinine 0.9. Glucose 175. He remains on DuoNeb ventilations, Solu-Medrol, antibiotics in the form of Zosyn. The patient is seen today September 20, 2023 and follow-up on the regular medical floor. He is resting quite comfortably in bed. Awake and alert in no acute distress. Maintaining O2 saturations in the 90s on 40% trach collar. Sputum culture revealed no growth. New labs today. Patient remains on Zosyn. Continued on bronchodilators, Solu-Medrol. The patient is seen today September 21, 2023 in follow-up on the regular medical floor. He is awake and alert in no acute distress. Sitting up in bed. Maintaining good O2 saturations in the 90s on 40% trach collar. He has normal saline at 20 mph. He is continued on Zosyn. He was found to have Pseudomonas aeruginosa and presumptive Staph aureus his sputum. No new labs today. Remains on bronchodilators. Continued on Solu-Medrol. The patient is seen today September 22, 2023 in follow-up on the regular medical floor. He is sitting up in bed. Awake and alert in no acute distress. Continues to maintain good O2 saturations in the 90s on 35% trach collar. No IV fluids. Sputum culture now positive for Pseudomonas aeruginosa and MRSA. Currently on Augmentin. Continued on bronchodilators and prednisone taper. Objective - Vital Signs Vital signs: Vital Signs Temp 97.6 F 09/22/23 07:27 Pulse 80 09/22/23 12:22 Resp 19 09/22/23 07:27 BP 134/84 09/22/23 07:27 Pulse Ox 95 09/22/23 08:59 FiO2 35 09/22/23 08:59 Intake & Output 09/21/23 09/22/23 09/22/23 18:59 06:59 18:59 Output Total 800 Balance -800 Weight 79.379 kg Output: Urine 800 Other: Voiding Method Urinal Urinal - Exam GENERAL EXAM: Alert, 63-year-old male, sitting up in bed, on trach collar 35 %, in no apparent distress. HEAD: Normocephalic. Eschar noted under right mandible EYES: Normal reaction of pupils, equal size. NOSE: Clear with pink turbinates. THROAT: No erythema or exudates. NECK: Tracheostomy tube secured in place. No masses, no JVD. CHEST: No chest wall deformity. LUNGS: Equal air entry with bilateral scattered rhonchi. CVS: S1 and S2 normal with no audible murmur, regular rhythm. ABDOMEN: PEG tube exit site clean and dry. No hepatosplenomegaly, normal bowel sounds, no guarding or rigidity. SPINE: No scoliosis or deformity SKIN: Areas of skin breakdown CENTRAL NERVOUS SYSTEM: No focal deficits, tone is normal in all 4 extremities. EXTREMITIES: There is no peripheral edema. No clubbing, no cyanosis. Peripheral pulses are intact. - Labs CBC & Chem 7: 09/19/23 05:17 09/19/23 05:17 Labs: Microbiology - Last 24 Hours (Table) 09/19/23 09:12 Gram Stain - Final Sputum Sputum Culture - Final Pseudomonas aeruginosa Methicillin resist S. aureus Pseudomonas aeruginosa#2 Assessment and Plan Assessment: Right knee pain secondary to fall/trauma CT scan reveals distal lateral femoral condylar fracture. Small joint effusion Acute on chronic hypoxemic respiratory failure secondary to acute exacerbation of chronic obstructive pulmonary disease. Sputum culture positive for Pseudomonas aeruginosa and MRSA. Anemia with hemoglobin of 6.3. Status post 1 unit packed red blood cells, most recent hemoglobin 8.7 History of oral cancer with resection to the floor of the mouth, tongue, mandible and bilateral neck resection with chemo/radiation and with skin graft with subsequent tracheostomy and PEG tube placements. Back in 2017 at [facility] Right mandibular pain with plans for teeth extraction, eschar noted and nonhealing from shaving incident History of chronic tobacco dependence History of daily alcohol use History of seizure disorder History of marijuana use Plan: The patient was seen and evaluated Medications and microbiology reviewed Sputum now positive for Pseudomonas aeruginosa and MRSA Continue Augmentin Initiate Vanco and meropenem Titrate the FiO2 as tolerated We will continue to follow I have personally seen and examined the patient, performed the documentation and the assessment and plan as written. Number of minutes spent on the visit: 10.
[2023-09-22] MEDS: CEFEPIME 2 GM in SODIUM CHLORIDE 0.9% 100 ML IVPB SCH (15:35)
[2023-09-22] MEDS: VANCOMYCIN 1,500 MG in SODIUM CHLORIDE 0.9% 500 ML 500 ML IVPB ONE (15:36)
[2023-09-22 15:47] LABS: African American GFR (CKD) >90 (>60 ml/min/1.73 sqM); Non-African American GFR(CKD) >90 (>60 ml/min/1.73 sqM)
[2023-09-22] MEDS ORDERED: MEROPENEM 1 GM in SODIUM CHLORIDE 0.9% 100 ML IVPB SCH (16:00)
[2023-09-22] MEDS: VANCOMYCIN 1,500 MG in SODIUM CHLORIDE 0.9% 500 ML 500 ML IVPB SCH (23:33)
[2023-09-23 07:59] LABS: African American GFR (CKD) >90 (>60 ml/min/1.73 sqM); Non-African American GFR(CKD) >90 (>60 ml/min/1.73 sqM)
--- NOTE | 2023-09-23 11:17 | P.PN ---
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 He has a h istory of chronic tobacco dependence, daily alcohol use, marijuana use, anxiety/depression, seizure disorder. He was brought into the emergency room yesterday after sustaining a fall from his chair. EMS found him to suspected him to spend most of his time in a chair as there were over half dozen urine bottles adjacent to the chair. The patient also had some right mandibular pain. He was to have remaining teeth extracted in September. He also has a area of eschar under the right mandible that he states was related to shaving and has not healed properly. CT scan of the right knee revealed distal lateral femoral condylar fracture. Small joint effusion. CT angiogram of the chest was of qu ite poor quality. No obvious central pulmonary embolism noted. No focal airspace consolidation. Tracheostomy tube in good position. There is debris or debris nearly occluding the tracheostomy tube near the trachea. The patient was seen today in consultation due to increasing shortness of breath cough and congestion. He has a very loose productive cough of significant sputum. He is maintaining O2 saturations in the 90s on 35% trach collar. He is afebrile. Slightly tachycardic. White count 6.4. Hemoglobin 8.3. Sodium 135. Potassium 4.6. Bicarb 23. BUN 34. Creatinine 0.95. Viral screen is negative. Procalcitonin 0.13. The patient is seen today September 18, 2023 and follow-up on the regular medical floor. He is currently sitting up in bed. Awake and alert in no acute distre ss. He is continued on trach collar at 40% FiO2 maintaining O2 saturation in the 90s. His procalcitonin was 0.13. He is continued on Zosyn. Dopplers of the lower extremity were negative. White count 4.9. Hemoglobin dropped to 6.3. Platelets 185. Sodium 133. Potassium 4.9. BUN 26. Creatinine 0.8. Glucose 132. He is status post 1 unit of packed red blood cells. Follow-up hemoglobin pending. He remains on DuoNeb and elations, Solu-Medrol, Robitussin. The patient is seen today September 19, 2023 in follow-up on the regular medical floor. He is awake and alert in no acute distress. Resting in bed. Maintaining good O2 saturations in the 90s on 40% trach collar. He is afebrile. Hemodynamically stable. He is status post 1 unit of packed red blood cells this admission. Current hemoglobin 8.7. Platelets 261. Count 10.7. Sodium 136. Potassium 4.9. Bicarb 24. BUN 30. Creatinine 0.9. Glucose 175. He remains on DuoNeb ventilations, Solu-Medrol, antibiotics in the form of Zosyn. The patient is seen today September 20, 2023 and follow-up on the regular medical floor. He is resting quite comfortably in bed. Awake and alert in no acute distress. Maintaining O2 saturations in the 90s on 40% trach collar. Sputum culture revealed no growth. New labs today. Patient remains on Zosyn. Continued on bronchodilators, Solu-Medrol. The patient is seen today September 21, 2023 in follow-up on the regular medical floor. He is awake and alert in no acute distress. Sitting up in bed. Maintaining good O2 saturations in the 90s on 40% trach collar. He has normal saline at 20 mph. He is continued on Zosyn. He was found to have Pseudomonas aeruginosa and presumptive Staph aureus his sputum. No new labs today. Remains on bronchodilators. Continued on Solu-Medrol. The patient is seen today September 22, 2023 in follow-up on the regular medical floor. He is sitting up in bed. Awake and alert in no acute distress. Continues to maintain good O2 saturations in the 90s on 35% trach collar. No IV fluids. Sputum culture now positive for Pseudomonas aeruginosa and MRSA. Currently on Augmentin. Continued on bronchodilators and prednisone taper. The patient is seen today September 23, 2023 and follow-up on the regular medical floor. He is resting comfortably in bed. Awake and alert in no acute distress. He is status post 1 unit of packed red blood cells this admission. Most recent hemoglobin 8.7. Sputum culture was positive for Pseudomonas aeruginosa as well as a second type of Pseudomonas aeruginosa and MRSA. Creatinine 0.58. He is continued on vancomycin and cefepime. Continued on DuoNeb and elations, Robitussin, prednisone taper. Objective - Vital Signs Vital signs: Vital Signs Temp 97.7 F 09/23/23 07:24 Pulse 96 09/23/23 09:52 Resp 19 09/23/23 07:24 BP 136/91 09/23/23 07:24 Pulse Ox 97 09/23/23 07:24 FiO2 35 09/23/23 09:28 Intake & Output 09/22/23 09/23/23 09/23/23 18:59 06:59 18:59 Intake Total 600 Output Total 600 1200 Balance -600 -600 Intake: Intake, IV Titration 600 Amount Cefepime 2 gm In Sodium 100 Chloride 0.9% 100 ml @ 25 mls/hr IVPB Q8HR [facility] Rx# :[id number] Vancomycin 1,500 mg In 500 Sodium Chloride 0.9% 500 ml 500 ml @ 167 mls/hr IVPB Q12H [facility] Rx#: [id number] Output: Urine 600 1200 Other: Voiding Method Urinal - Exam GENERAL EXAM: Alert, 63-year-old male, resting comfortably in bed, on trach collar 35 %, in no apparent distress. HEAD: Normocephalic. Eschar noted under right mandible EYES: Normal reaction of pupils, equal size. NOSE: Clear with pink turbinates. THROAT: No erythema or exudates. NECK: Tracheostomy tube secured in place. No masses, no JVD. CHEST: No chest wall deformity. LUNGS: Equal air entry with bilateral scattered rhonchi. CVS: S1 and S2 normal with no audible murmur, regular rhythm. ABDOMEN: PEG tube exit site clean and dry. No hepatosplenomegaly, normal bowel sounds, no guarding or rigidity. SPINE: No scoliosis or deformity SKIN: Areas of skin breakdown CENTRAL NERVOUS SYSTEM: No focal deficits, tone is normal in all 4 extremities. EXTREMITIES: There is no peripheral edema. No clubbing, no cyanosis. Peripheral pulses are intact. - Labs CBC & Chem 7: 09/19/23 05:17 09/23/23 06:51 Labs: Abnormal Lab Results - Last 24 Hours (Table) 09/22/23 09/23/23 Range/Units 15:02 06:51 Creatinine 0.64 L 0.58 L (0.66-1.25) mg/dL Microbiology - Last 24 Hours (Table) 09/19/23 09:12 Gram Stain - Final Sputum Sputum Culture - Final Pseudomonas aeruginosa Methicillin resist S. aureus Pseudomonas aeruginosa#2 Assessment and Plan Assessment: Right knee pain secondary to fall/trauma CT scan reveals distal lateral femoral condylar fracture. Small joint effusion Acute on chronic hypoxemic respiratory failure secondary to acute exacerbation of chronic obstructive pulmonary disease and pneumonia secondary to pneumonia with sputum culture positive for Pseudomonas aeruginosa and MRSA Anemia with hemoglobin of 6.3. Status post 1 unit packed red blood cells, most recent hemoglobin 8.7 History of oral cancer with resection to the floor of the mouth, tongue, mandible and bilateral neck resection with chemo/radiation and with skin graft with subsequent tracheostomy and PEG tube placements. Back in 2017 at [facility] Right mandibular pain with plans for teeth extraction, eschar noted and nonhealing from shaving incident History of chronic tobacco dependence History of daily alcohol use History of seizure disorder History of marijuana use Plan: The patient was seen and evaluated Medications, labs and microbiology reviewed Sputum now positive for Pseudomonas aeruginosa and MRSA Continue vancomycin and cefepime Consult ID services Titrate the FiO2 as tolerated We will continue to follow I have personally seen and examined the patient, performed the documentation and the assessment and plan as written. Number of minutes spent on the visit: 10.
--- NOTE | 2023-09-23 14:08 | P.PN ---
Subjective Progress Note Date: 09/23/23 63-year-old gentleman with past medical history significant for oral cancer status post tracheostomy and PEG tube, admitted with right distal lateral femoral condylar fracture with small joint effusion, status post fall, acute COPD exacerbation , right mandibular pain with teeth extraction pending -nonhea ling eschar right mandible from shaving incident , anemia and multiple other medical issues. Currently maintained on nebulized bronchodilators, steroids ,40% FiO2 trach collar with O2 sats in the 90s. Zosyn initiated yesterday, procalcitonin 0.13. Hemoglobin dropped to 6.3 and 1 unit packed RBCs ordered with recheck later tonight posttransfusion. No signs or symptoms of bleeding. No oozing/bleeding around trach site. Lovenox placed on hold. Dopplers of lower extremity reported negative. Afebrile, normal WBC. Renal function improving. 09/23/2023:Dr Ferraro assumed care Patient seen and evaluated bedside, followed by pulmonary medicine, dose of [place] changed to every 8 hours continue breathing treatments. Infectious disease consulted as well does have Pseudomonas pneumonia patient receiving IV cefepime appreciate input from pulmonary medicine, also on vancomycin. Blood work reviewed PHYSICAL EXAMINATION: GENERAL: The patient is alert and oriented x3, trach in place, ill appearance HEENT: Pupils are round and equally reacting to light. EOMI. CARDIOVASCULAR: S1 and S2 present. No murmurs, rubs, or gallops. PULMONARY: Decreased breath sounds bilateral ABDOMEN: Soft, nontender, nondistended, normoactive bowel sounds. No palpable organomegaly. MUSCULOSKELETAL: No joint swelling or deformity. EXTREMITIES: No cyanosis, clubbing, or pedal edema. NEUROLOGICAL: Gross neurological examination did not reveal any focal deficits. SKIN: No rashes. Assessment and plan Distal lateral femoral condylar fracture with small joint effusion of right knee status post fall, reported per CT, orthopedic surgery following Acute COPD exacerbation Pseudomonas and MRSA pneumonia Anemia, status post 1 unit packed RBCs Acute on chronic hypoxic respiratory failure Right mandibular pain with teeth extraction pending Right mandibular nonhealing ,eschar secondary to reported shaving incident History of oral cancer, status post tracheostomy and PEG Chronic nicotine dependence History of daily alcohol use Seizure disorder History of marijuana use * Patient seen by orthopedic for right femoral condyle fracture, brace in place * Regards to pneumonia continue current antibiotic will be medicine consulted, infectious disease * In regards to chronic medical issues home medications reviewed and continued, continue telemetry for history of seizure * In regards to mandibular pain continue [place] increased to every 8 hours Objective - Vital Signs Vital signs: Vital Signs Temp 97.7 F 09/23/23 07:24 Pulse 84 09/23/23 12:46 Resp 19 09/23/23 07:24 BP 136/91 09/23/23 07:24 Pulse Ox 97 09/23/23 07:24 FiO2 35 09/23/23 09:28 Intake & Output 09/22/23 09/23/23 09/23/23 18:59 06:59 18:59 Intake Total 600 Output Total 600 1200 Balance -600 -600 Intake: Intake, IV Titration 600 Amount Cefepime 2 gm In Sodium 100 Chloride 0.9% 100 ml @ 25 mls/hr IVPB Q8HR [facility] Rx# :[id number] Vancomycin 1,500 mg In 500 Sodium Chloride 0.9% 500 ml 500 ml @ 167 mls/hr IVPB Q12H [facility] Rx#: [id number] Output: Urine 600 1200 Other: Voiding Method Urinal - Labs CBC & Chem 7: 09/19/23 05:17 09/23/23 06:51 Labs: Abnormal Lab Results - Last 24 Hours (Table) 09/22/23 09/23/23 Range/Units 15:02 06:51 Creatinine 0.64 L 0.58 L (0.66-1.25) mg/dL Microbiology - Last 24 Hours (Table) 09/19/23 09:12 Gram Stain - Final Sputum Sputum Culture - Final Pseudomonas aeruginosa Methicillin resist S. aureus Pseudomonas aeruginosa#2 Assessment and Plan Time with Patient: Greater than 30
[2023-09-23] MEDS: HYDROcodone/APAP 5-325MG 1 EACH TAB PEG/G-TUBE PRN (14:19)
--- NOTE | 2023-09-24 09:17 | P.CONS ---
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 and did have a tracheostomy patient has been brought into the hospital about a week ago after apparently the patient did fell at home as the patient was trying to get up and fell from his chair complaining of right knee pain since that the patient has been evaluated by orthopedics and pulmonary services patient on admission to the hospital was afebrile and no fever has been recorded subsequently patient was not tachycardic hypotensive mildly hypoxic at O2 sats was 92% on presentation to the hospital is currently on trach collar satting around 98% patient denies having any fever or any chills patient is breathing is baseline denies any chest pain or any worsening cough or sputum production no nausea no vomiting no abdominal pain no diarrhea patient did have a normal white count last CBC was on 09/19/2023 c reatinine was normal procalcitonin 0.[address] angiogram of the chest done on 09/17/2023 extensive respiratory artifact nondiagnostic no obvious focal airspace consolidation CT abdominal pelvis no acute abnormality CT abdominal pelvis patient did have a sputum cultures obtained which grew Pseudomonas MRSA patient is currently on cefepime and vancomycin infectious he was consulted today for further management of antibiotic therapy patient is complaining of mostly pain to the right lower jaw area. Patient did have a small scabbed up wound with the patient attributing it to cutting while shaving and denies having any drainage from it Review of Systems Positive point and negatives has been mentioned in the HPI, complete review of systems was performed and all other systems are negative Past Medical History Past Medical History: Cancer, COPD, GERD/Reflux, Myocardial Infarction (CT), Pneumonia, Seizure Disorder Additional Past Medical History / Comment(s): 07/30/20 fall with impacted R hip fracture/tracheal bronchitis, hemoptysis, pulmonary nodules. 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 Last chemo/radiation in 2016. fell in August 2022, fractured leg and was transferred to [facility] per patient Last Myocardial Infarction Date:: 2014 History of Any Multi-Drug Resistant Organisms: None Reported Past Surgical History: Heart Catheterization Additional Past Surgical History / Comment(s): Oral surgery with resection floor of mouth/tongue/mandible and bilateral neck resection with skin graft taken from L upper arm at [facility], tracheostomy, peg tube Past Anesthesia/Blood Transfusion Reactions: No Reported Reaction Additional Past Anesthesia/Blood Transfusion Reaction / Comm: adopted - no family hx Past Psychological History: Anxiety, Depression Additional Psychological History / Comment(s): Pt resides with his spouse. He states he has home care thru [facility]. He uses a walker to ambulate. Smoking Status: Current every day smoker Past Alcohol Use History: Daily, Heavy Additional Past Alcohol Use History / Comment(s): Pt started smoking in 1977 and is a 1/2 ppd smoker. Pt states he now has a beer occasionally thru peg tube. Past Drug Use History: Marijuana Additional Drug Use History / Comment(s): Pt uses marijuana rarely. - Past Family History Mother Family Medical History: Unable to Obtain Additional Family Medical History / Comment(s): pt is adopted Medications and Allergies Home Medications Medication Instructions Recorded Confirmed Type Amitriptyline HCl [Elavil] 25 mg PEG/G-TUBE HS 03/22/22 09/16/23 History Baclofen [Lioresal] 10 mg PEG/G-TUBE TID 03/22/22 09/16/23 History Levothyroxine Sodium 25 mcg PEG/G-TUBE DAILY 03/22/22 09/16/23 History busPIRone HCL 5 mg PEG/G-TUBE BID 03/22/22 09/16/23 History lamoTRIgine [LaMICtal] 25 mg PEG/G-TUBE BID 03/22/22 09/16/23 History Spironolactone [Aldactone] 25 mg PEG/G-TUBE DAILY #30 tab 03/28/22 09/16/23 Rx lisinopriL [Zestril] 2.5 mg PEG/G-TUBE DAILY #30 tab 03/28/22 09/16/23 Rx Sodium Chloride Tab 1 gm PEG/G-TUBE DAILY #30 tab 05/02/22 09/16/23 Rx Pantoprazole Sodium [Protonix] 20 mg PEG/G-TUBE DAILY 08/27/22 09/16/23 History Midodrine [ProAmatine] 5 mg PEG/G-TUBE TID 02/01/23 09/16/23 History Famotidine [Pepcid] 20 mg PEG/G-TUBE DAILY 09/01/23 09/16/23 History Latanoprost [Latanoprost 0.005%] 1 drop BOTH EYES HS 09/01/23 09/16/23 History Metoprolol Succinate [Kapspargo 25 mg PEG/G-TUBE BID 09/01/23 09/16/23 History Sprinkle] Prochlorperazine [Compazine] 10 mg PEG/G-TUBE DAILY 09/01/23 09/16/23 History Amoxic-Pot Clav 400-57Mg/5Ml 10 ml PO Q12H #200 ml 09/20/23 Rx [Augmentin 400-57 mg/5 ml Susp] Gabapentin 300 mg PEG/G-TUBE TID #9 cap 09/20/23 Rx Ipratropium-Albuterol Nebulize 3 ml INHALATION RT-QID #120 each 09/20/23 Rx [Duoneb 0.5 mg-3 mg/3 ml Soln] predniSONE 10 mg PEG/G-TUBE DIRECTED #30 09/20/23 Rx tab traMADol HCl [Ultram] 50 mg PEG/G-TUBE Q6HR PRN #12 tab 09/20/23 Rx Chlorhexidine Gluconate [Peridex] 15 ml MUCOUS MEM QID ml 09/26/23 Rx guaiFENesin-DM 100-10MG/5ML 15 ml PEG/G-TUBE Q6HR ml 09/26/23 Rx [Robitussin DM] Acetaminophen Tab [Tylenol] 1,000 mg PEG/G-TUBE Q6HR PRN tab 09/27/23 Rx Psyllium Husk 100% [Metamucil 6 gm PO DAILY packet 09/27/23 Rx Packet] Allergies Allergy/AdvReac Type Severity Reaction Status Date / Time No Known Allergies Allergy Verified 09/16/23 17:18 Physical Exam Vitals: Vital Signs Temp Pulse Pulse Pulse Resp BP Pulse Ox 09/23/23 09:52 96 09/23/23 09:28 92 09/23/23 07:24 97.7 F 95 19 136/91 97 09/23/23 01:15 97.9 F 90 18 130/87 99 09/22/23 23:49 09/22/23 22:49 84 09/22/23 22:29 80 09/22/23 20:00 18 09/22/23 19:30 97.5 F L 94 18 130/82 98 09/22/23 16:34 84 09/22/23 16:18 82 09/22/23 15:04 97.6 F 85 19 137/86 97 09/22/23 12:22 80 09/22/23 12:10 84 FiO2 09/23/23 09:52 09/23/23 09:28 35 09/23/23 07:24 09/23/23 01:15 09/22/23 23:49 35 09/22/23 22:49 09/22/23 22:29 09/22/23 20:00 09/22/23 19:30 09/22/23 16:34 09/22/23 16:18 09/22/23 15:04 09/22/23 12:22 09/22/23 12:10 Intake and Output 09/22/23 09/23/23 09/23/23 22:59 06:59 14:59 Intake Total 600 Output Total 1025 775 Balance -1025 -175 Intake: Intake, IV Titration 600 Amount Cefepime 2 gm In Sodium 100 Chloride 0.9% 100 ml @ 25 mls/hr IVPB Q8HR [facility] Rx# :[id number] Vancomycin 1,500 mg In 500 Sodium Chloride 0.9% 500 ml 500 ml @ 167 mls/hr IVPB Q12H [facility] Rx#: [id number] Output: Urine 1025 775 GENERAL DESCRIPTION: Middle-aged male lying in bed, no distress. No tachypnea or accessory muscle of respiration use. HEENT: Shows Pallor , no scleral icterus. Oral mucous membrane is dry. Right lower jaw did have a wound with some crusting no drainage was noticed NECK: Trachea central, no thyromegaly. LUNGS: Unlabored breathing. Clear to auscultation anteriorly. No wheeze or crackle. HEART: S1, S2, regular rate and rhythm. No loud murmur ABDOMEN: Soft, no tenderness , guarding or rigidity, no organomegaly EXTREMITIES: No edema of feet. SKIN: No rash, no masses palpable. NEUROLOGICAL: The patient is awake, alert, mood and affect normal. Results CBC & Chem 7: 09/25/23 11:32 09/27/23 04:48 Labs: Abnormal Lab Results - Last 24 Hours (Table) 09/22/23 09/23/23 Range/Units 15:02 06:51 Creatinine 0.64 L 0.58 L (0.66-1.25) mg/dL Microbiology - Last 24 Hours (Table) 09/19/23 09:12 Gram Stain - Final Sputum Sputum Culture - Final Pseudomonas aeruginosa Methicillin resist S. aureus Pseudomonas aeruginosa#2 Assessment and Plan (1) Positive sputum culture for Pseudomonas Status: Acute Code(s): R84.5 - ABNORMAL MICROBIOLOG FINDINGS IN SPECMN FROM RESP ORG/THRX SNOMED Code(s): 30333331038676682 Plan: 1patient with a positive sputum culture growing 2 different strains of Pseudomonas and 1 strain of MRSA in this patient presented to the hospital after he did have a fall patient did not have any fever during this hospital stay did have a normal white count did have a CT angiogram of the chest which did not show any consolidation in the lungs and the patient is breathing comfortably more likely representing colonization of the trach for the pneumonia versus tracheobronchitis 2-patient complaining of pain to the right lower jaw we will obtain x-rays of t he mandible no evidence of any cellulitis locally 3-currently on vancomycin and cefepime, however no plan for continuation of IV antibiotic area on discharge We will follow on clinical condition and cultures to further adjust medication if needed Thank you for this consultation we will follow the patient along with you Dictation was produced using [employer] dictation software. please excuse any gramm atical, word or spelling errors. Time with Patient: Greater than 30
--- NOTE | 2023-09-24 10:44 | XR ---
EXAMINATION TYPE: XR mandible complete DATE OF EXAM: 09/24/2023 COMPARISON: NONE HISTORY: Right mandibular pain TECHNIQUE: 5 views of the mandible are submitted. FINDINGS: There is erosive change noted to involve the right hemimandible felt to reflect underlying osteomyelitis likely dental in origin. Dental consult recommended. No evidence of fracture. TMJs are intact. Left hemimandible appears grossly unremarkable. IMPRESSION: Suspect osteomyelitis right hemimandible.
--- NOTE | 2023-09-24 11:56 | P.PN ---
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 He has a h istory of chronic tobacco dependence, daily alcohol use, marijuana use, anxiety/depression, seizure disorder. He was brought into the emergency room yesterday after sustaining a fall from his chair. EMS found him to suspected him to spend most of his time in a chair as there were over half dozen urine bottles adjacent to the chair. The patient also had some right mandibular pain. He was to have remaining teeth extracted in September. He also has a area of eschar under the right mandible that he states was related to shaving and has not healed properly. CT scan of the right knee revealed distal lateral femoral condylar fracture. Small joint effusion. CT angiogram of the chest was of qu ite poor quality. No obvious central pulmonary embolism noted. No focal airspace consolidation. Tracheostomy tube in good position. There is debris or debris nearly occluding the tracheostomy tube near the trachea. The patient was seen today in consultation due to increasing shortness of breath cough and congestion. He has a very loose productive cough of significant sputum. He is maintaining O2 saturations in the 90s on 35% trach collar. He is afebrile. Slightly tachycardic. White count 6.4. Hemoglobin 8.3. Sodium 135. Potassium 4.6. Bicarb 23. BUN 34. Creatinine 0.95. Viral screen is negative. Procalcitonin 0.13. The patient is seen today September 18, 2023 and follow-up on the regular medical floor. He is currently sitting up in bed. Awake and alert in no acute distre ss. He is continued on trach collar at 40% FiO2 maintaining O2 saturation in the 90s. His procalcitonin was 0.13. He is continued on Zosyn. Dopplers of the lower extremity were negative. White count 4.9. Hemoglobin dropped to 6.3. Platelets 185. Sodium 133. Potassium 4.9. BUN 26. Creatinine 0.8. Glucose 132. He is status post 1 unit of packed red blood cells. Follow-up hemoglobin pending. He remains on DuoNeb and elations, Solu-Medrol, Robitussin. The patient is seen today September 19, 2023 in follow-up on the regular medical floor. He is awake and alert in no acute distress. Resting in bed. Maintaining good O2 saturations in the 90s on 40% trach collar. He is afebrile. Hemodynamically stable. He is status post 1 unit of packed red blood cells this admission. Current hemoglobin 8.7. Platelets 261. Count 10.7. Sodium 136. Potassium 4.9. Bicarb 24. BUN 30. Creatinine 0.9. Glucose 175. He remains on DuoNeb ventilations, Solu-Medrol, antibiotics in the form of Zosyn. The patient is seen today September 20, 2023 and follow-up on the regular medical floor. He is resting quite comfortably in bed. Awake and alert in no acute distress. Maintaining O2 saturations in the 90s on 40% trach collar. Sputum culture revealed no growth. New labs today. Patient remains on Zosyn. Continued on bronchodilators, Solu-Medrol. The patient is seen today September 21, 2023 in follow-up on the regular medical floor. He is awake and alert in no acute distress. Sitting up in bed. Maintaining good O2 saturations in the 90s on 40% trach collar. He has normal saline at 20 mph. He is continued on Zosyn. He was found to have Pseudomonas aeruginosa and presumptive Staph aureus his sputum. No new labs today. Remains on bronchodilators. Continued on Solu-Medrol. The patient is seen today September 22, 2023 in follow-up on the regular medical floor. He is sitting up in bed. Awake and alert in no acute distress. Continues to maintain good O2 saturations in the 90s on 35% trach collar. No IV fluids. Sputum culture now positive for Pseudomonas aeruginosa and MRSA. Currently on Augmentin. Continued on bronchodilators and prednisone taper. The patient is seen today September 23, 2023 and follow-up on the regular medical floor. He is resting comfortably in bed. Awake and alert in no acute distress. He is status post 1 unit of packed red blood cells this admission. Most recent hemoglobin 8.7. Sputum culture was positive for Pseudomonas aeruginosa as well as a second type of Pseudomonas aeruginosa and MRSA. Creatinine 0.58. He is continued on vancomycin and cefepime. Continued on DuoNeb and elations, Robitussin, prednisone taper. The patient is seen today September 24, 2023 in follow-up on the regular medical floor. Sitting up in bed. Awake and alert in no acute distress. Maintaining O2 saturations in the 90s on 35% trach collar. He is having some complaints of right mandibular pain and an x-ray revealed suspected osteomyelitis in the right hemimandible. Likely dental in origin. Sputum culture was positive for 2 different Pseudomonas aeruginosa's and MRSA. He is continued on vancomycin and cefepime. He is continued on DuoNeb inhalations, prednisone taper. Objective - Vital Signs Vital signs: Vital Signs Temp 97.5 F L 09/24/23 07:34 Pulse 84 09/24/23 11:31 Resp 19 09/24/23 07:34 BP 126/80 09/24/23 07:34 Pulse Ox 93 L 09/24/23 07:34 FiO2 35 09/24/23 07:59 Intake & Output 09/23/23 09/24/23 09/24/23 18:59 06:59 18:59 Output Total 900 600 Balance -900 -600 Weight 31 kg Output: Urine 900 600 Other: # Voids 4 - Exam GENERAL EXAM: Alert, 63-year-old male, resting comfortably in bed, on trach collar 35 %, in no apparent distress. HEAD: Normocephalic. Eschar noted under right mandible, now painful. EYES: Normal reaction of pupils, equal size. NOSE: Clear with pink turbinates. THROAT: No erythema or exudates. NECK: Tracheostomy tube secured in place. No masses, no JVD. CHEST: No chest wall deformity. LUNGS: Equal air entry with bilateral scattered rhonchi. CVS: S1 and S2 normal with no audible murmur, regular rhythm. ABDOMEN: PEG tube exit site clean and dry. No hepatosplenomegaly, normal bowel sounds, no guarding or rigidity. SPINE: No scoliosis or deformity SKIN: Areas of skin breakdown CENTRAL NERVOUS SYSTEM: No focal deficits, tone is normal in all 4 extremities. EXTREMITIES: There is no peripheral edema. No clubbing, no cyanosis. Peripheral pulses are intact. - Labs CBC & Chem 7: 09/19/23 05:17 09/23/23 06:51 Assessment and Plan Assessment: Right knee pain secondary to fall/trauma CT scan reveals distal lateral femoral condylar fracture. Small joint effusion Acute on chronic hypoxemic respiratory failure secondary to acute exacerbation of chronic obstructive pulmonary disease and secondary to pneumonia with sputum culture positive for Pseudomonas aeruginosa and MRSA Anemia with hemoglobin of 6.3. Status post 1 unit packed red blood cells, most recent hemoglobin 8.7 History of oral cancer with resection to the floor of the mouth, tongue, mandible and bilateral neck resection with chemo/radiation and with skin graft with subsequent tracheostomy and PEG tube placements. Back in 2017 at [facility] Right mandibular pain with plans for teeth extraction, eschar noted and nonhealing from shaving incident, now suspicious for osteomyelitis History of chronic tobacco dependence History of daily alcohol use History of seizure disorder History of marijuana use Plan: The patient was seen and evaluated Medications, labs and microbiology reviewed Sputum positive for Pseudomonas aeruginosa and MRSA Continue vancomycin and cefepime Possible osteomyelitis of the right hemimandible ID services are following We will continue to follow I have personally seen and examined the patient, performed the documentation and the assessment and plan as written. Number of minutes spent on the visit: 10.
[2023-09-24 13:06] LABS: African American GFR (CKD) >90 (>60 ml/min/1.73 sqM); Non-African American GFR(CKD) >90 (>60 ml/min/1.73 sqM)
--- NOTE | 2023-09-24 13:09 | P.PN ---
Subjective Progress Note Date: 09/24/23 63-year-old gentleman with past medical history significant for oral cancer status post tracheostomy and PEG tube, admitted with right distal lateral femoral condylar fracture with small joint effusion, status post fall, acute COPD exacerbation , right mandibular pain with teeth extraction pending -nonhea ling eschar right mandible from shaving incident , anemia and multiple other medical issues. Currently maintained on nebulized bronchodilators, steroids ,40% FiO2 trach collar with O2 sats in the 90s. Zosyn initiated yesterday, procalcitonin 0.13. Hemoglobin dropped to 6.3 and 1 unit packed RBCs ordered with recheck later tonight posttransfusion. No signs or symptoms of bleeding. No oozing/bleeding around trach site. Lovenox placed on hold. Dopplers of lower extremity reported negative. Afebrile, normal WBC. Renal function improving. 09/23/2023:Dr Ferraro assumed care Patient seen and evaluated bedside, followed by pulmonary medicine, dose of [place] changed to every 8 hours continue breathing treatments. Infectious disease consulted as well does have Pseudomonas pneumonia patient receiving IV cefepime appreciate input from pulmonary medicine, also on vancomycin. Blood work reviewed 09/24/2023: patient seen and evaluated at bedside, patient seen by infectious disease, x-ray of mandible obtained does show erosive changes. Patient already on antibiotics PHYSICAL EXAMINATION: GENERAL: The patient is alert and oriented x3, trach in place, ill appearance HEENT: Pupils are round and equally reacting to light. EOMI. CARDIOVASCULAR: S1 and S2 present. No murmurs, rubs, or gallops. PULMONARY: Decreased breath sounds bilateral ABDOMEN: Soft, nontender, nondistended, normoactive bowel sounds. No palpable organomegaly. MUSCULOSKELETAL: No joint swelling or deformity. EXTREMITIES: No cyanosis, clubbing, or pedal edema. NEUROLOGICAL: Gross neurological examination did not reveal any focal deficits. SKIN: No rashes. Assessment and plan Distal lateral femoral condylar fracture with small joint effusion of right knee status post fall, reported per CT, orthopedic surgery following Acute COPD exacerbation Pseudomonas and MRSA pneumonia Anemia, status post 1 unit packed RBCs Acute on chronic hypoxic respiratory failure Right mandibular pain with erosive changes suspect osteomyelitis Right mandibular nonhealing ,eschar secondary to reported shaving incident History of oral cancer, status post tracheostomy and PEG Chronic nicotine dependence History of daily alcohol use Seizure disorder History of marijuana use * Patient seen by orthopedic for right femoral condyle fracture, brace in place * Regards to pneumonia continue current antibiotic will be medicine consulted, infectious disease * In regards to chronic medical issues home medications reviewed and continued, continue telemetry for history of seizure * In regards to mandibular pain continue [place] increased to every 8 hours * Continue to follow-up on CBC to monitor for anemia * " Pulmonary hygiene Objective - Vital Signs Vital signs: Vital Signs Temp 97.5 F L 09/24/23 07:34 Pulse 84 09/24/23 11:31 Resp 19 09/24/23 07:34 BP 126/80 09/24/23 07:34 Pulse Ox 93 L 09/24/23 07:34 FiO2 35 09/24/23 07:59 Intake & Output 09/23/23 09/24/23 09/24/23 18:59 06:59 18:59 Output Total 900 600 Balance -900 -600 Weight 31 kg 72.575 kg Output: Urine 900 600 Other: # Voids 4 - Labs CBC & Chem 7: 09/19/23 05:17 09/24/23 12:25 Labs: Abnormal Lab Results - Last 24 Hours (Table) 09/24/23 Range/Units 12:25 Creatinine 0.52 L (0.66-1.25) mg/dL
[2023-09-24] MEDS: VANCOMYCIN TROUGH DUE 1 EACH MISC MISCELLANE ONE (14:11)
[2023-09-24] MEDS: VANCOMYCIN 1,250 MG in SODIUM CHLORIDE 0.9% 250 ML IVPB SCH (16:14)
--- NOTE | 2023-09-24 16:24 | P.PN ---
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 and did have a tracheostomy patient has been brought into the hospital after the patient did have a fall patient did have a positive splinter culture grew Pseudomonas x [address] strains [address] MRSA however CT of the chest was negative for any pneumonia, patient also compla ining of pain to the right lower jaw and did have a wound which she attributed to shaving x-rays done concerning for osteomyelitis On today's evaluation that is 09/24/2023, the patient remains to be afebrile, patient is breathing comfortably on trach collar, the patient denies chest pain shortness of breath or cough, patient denies abdominal pain and no nausea vomiting or diarrhea, patient simply worried about his right lower jaw still complaining of pain to the area Patient did have a creatinine of 0.52 Objective - Vital Signs Vital signs: Vital Signs Temp 97.5 F L 09/24/23 07:34 Pulse 84 09/24/23 15:28 Resp 19 09/24/23 13:42 BP 118/77 09/24/23 13:42 Pulse Ox 92 L 09/24/23 13:42 FiO2 35 09/24/23 07:59 Intake & Output 09/23/23 09/24/23 09/24/23 18:59 06:59 18:59 Output Total 900 1100 Balance -900 -1100 Weight 31 kg 72.575 kg Output: Urine 900 1100 Other: # Voids 4 - Exam GENERAL DESCRIPTION: Middle-age male lying in bed in no distress HEENT: Right lower jaw did have a necrotic wound minimal surrounding redness no drainage RESPIRATORY SYSTEM: Unlabored breathing , decreased breath sounds at bases HEART: S1 S2 regular rate and rhythm , ABDOMEN: Soft , no tenderness EXTREMITIES: No edema feet - Labs CBC & Chem 7: 09/19/23 05:17 09/24/23 12:25 Labs: Abnormal Lab Results - Last 24 Hours (Table) 09/24/23 Range/Units 12:25 Creatinine 0.52 L (0.66-1.25) mg/dL Assessment and Plan (1) Positive sputum culture for Pseudomonas Current Visit: Yes Status: Acute Code(s): R84.5 - ABNORMAL MICROBIOLOG FINDINGS IN SPECMN FROM RESP ORG/THRX SNOMED Code(s): 76456781499042725 (2) Osteomyelitis of mandible Current Visit: Yes Status: Acute Code(s): M27.2 - INFLAMMATORY CONDITIONS OF JAWS SNOMED Code(s): 366002813 Plan: 1patient with a positive sputum culture growing 2 different strains of Pseudomonas and 1 strain of MRSA in this patient presented to the hospital after he did have a fall patient did not have any fever during this hospital stay did have a normal white count did have a CT angiogram of the chest which did not show any consolidation in the lungs and the patient is breathing comfortably more likely representing colonization of the trach for the pneumonia versus tracheobronchitis 2-patient complaining of pain to the right lower jaw x-rays has been suspicious for osteomyelitis we will obtain CT of the jaw for better definition and get consultation with oral surgery for debridement and culture 3-check inflammatory markers and continue with the cefepime and vancomycin at this point Dictation was produced using [employer] dictation software. please excuse any grammatical, word or spelling errors. Time with Patient: Less than 30
--- NOTE | 2023-09-24 19:32 | CT ---
EXAMINATION TYPE: CT tmj maxillofacial wo con CT DLP: 400.3 mGycm, Automated exposure control for dose reduction was used. DATE OF EXAM: 09/24/2023 6:51 PM COMPARISON: Mandible x-ray earlier today. CLINICAL INDICATION:Male, 63 years old with history of Abnormal x-ray suspicious for osteomyelitis; P HH, abnormal xray TECHNIQUE: Noncontrast CT was performed per a protocol centered on the temporomandibular joints. Multiplanar ref ormats generated, and exam is submitted for interpretation. LIMITATIONS: The inferior aspects of the mandible (including the area of concern on x-rays) are not included, and the other facial bones are not fully included on this examination. FINDINGS: Generalized osteopenia. No evidence of fracture, significant malalignment, or osseous destructive pro cess in the scope of this study. There is mild nasal septal deviation towards the left. Scattered mild paranasal sinus mucosal thicken ing. Small mucous retention cyst or polyp in the right maxillary sinus. No air-fluid levels in the vi sualized sinuses. Mastoid air cells are clear. The temporomandibular joints appear normally positioned with minimal degenerative changes. Orbits appear intact as seen. No evidence of orbital fracture or intraorbital abnormality. No clear-cut soft tissue abnormality is seen. Partially visualized degenerative changes of the cervic al spine. Included base of the brain shows mild/moderate generalized atrophy without evidence of hemorrhage, mi dline shift, or mass effect. Moderate to heavy calcifications of the bilateral carotid siphons. IMPRESSION: Limited study focused on the temporomandibular joints, with the entirety of the mandible not included . Recommend the patient be returned for a full CT of the facial bones/mandible for more complete asse ssment.
--- NOTE | 2023-09-24 20:40 | P.GSCN ---
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 Farzad Rice at the [facility] oral surgery program. Patient has a tracheostomy and PEG tube. Patient reports jaw pain started in May 2023 and has progressively gotten worse. He saw Dr. Rice who ordered hyperbaric oxygen to treat osteoradionecrosis of the jaw which was started in July 2023. The patient thus far has only done 3 of the 20 treatments that were ordered first due to weather and secondly due to his fractured limb.Through written responses to questions the patient's chief complaint is the pain in his jaw. He reports he did not lose consciousness and his most recent fall and did not hit his face. The mandible pain started well before his most recent fall. Review of Systems See history of present illness ROS unobtainable: due to endotracheal tube Past Medical History Past Medical History: Cancer, COPD, GERD/Reflux, Myocardial Infarction ([place]), Pneumonia, Seizure Disorder Additional Past Medical History / Comment(s): 07/30/20 fall with impacted R hip fracture/tracheal bronchitis, hemoptysis, pulmonary nodules. Other hx: 2016 Squamous cell carcinoma of the oral cavity with surgery/chemorad iation,dysphagia, has trach and peg tube, upper GI bleed, thrombocytopenia, hyponatremia, chronic hypotension, seizure from alcohol withdrawal several years ago, L arm neuropathy, sacral decubitus, chronic back pain. Last chemo/radiation in 2016. fell in August 2022, fractured leg and was transfe rred to [place] per patient Last Myocardial Infarction Date:: 2014 History of Any Multi-Drug Resistant Organisms: None Reported Past Surgical History: Heart Catheterization Additional Past Surgical History / Comment(s): Oral surgery with resection floor of mouth/tongue/mandible and bilateral neck resection with skin graft taken from L upper arm at [facility], tracheostomy, peg tube Past Anesthesia/Blood Transfusion Reactions: No Reported Reaction Additional Past Anesthesia/Blood Transfusion Reaction / Comm: adopted - no family hx Past Psychological History: Anxiety, Depression Additional Psychological History / Comment(s): Pt resides with his spouse. He states he has home care thru [facility]. He uses a walker to ambulate. Smoking Status: Current every day smoker Past Alcohol Use History: Daily, Heavy Additional Past Alcohol Use History / Comment(s): Pt started smoking in 1977 and is a 1/2 ppd smoker. Pt states he now has a beer occasionally thru peg tube. Past Drug Use History: Marijuana Additional Drug Use History / Comment(s): Pt uses marijuana rarely. - Past Family History Mother Family Medical History: Unable to Obtain Additional Family Medical History / Comment(s): pt is adopted Medications and Allergies Home Medications Medication Instructions Recorded Confirmed Type Amitriptyline HCl [Elavil] 25 mg PEG/G-TUBE HS 03/22/22 09/16/23 History Baclofen [Lioresal] 10 mg PEG/G-TUBE TID 03/22/22 09/16/23 History Levothyroxine Sodium 25 mcg PEG/G-TUBE DAILY 03/22/22 09/16/23 History busPIRone HCL 5 mg PEG/G-TUBE BID 03/22/22 09/16/23 History lamoTRIgine [LaMICtal] 25 mg PEG/G-TUBE BID 03/22/22 09/16/23 History Spironolactone [Aldactone] 25 mg PEG/G-TUBE DAILY #30 tab 03/28/22 09/16/23 Rx lisinopriL [Zestril] 2.5 mg PEG/G-TUBE DAILY #30 tab 03/28/22 09/16/23 Rx Sodium Chloride Tab 1 gm PEG/G-TUBE DAILY #30 tab 05/02/22 09/16/23 Rx Pantoprazole Sodium [Protonix] 20 mg PEG/G-TUBE DAILY 08/27/22 09/16/23 History Midodrine [ProAmatine] 5 mg PEG/G-TUBE TID 02/01/23 09/16/23 History Famotidine [Pepcid] 20 mg PEG/G-TUBE DAILY 09/01/23 09/16/23 History Latanoprost [Latanoprost 0.005%] 1 drop BOTH EYES HS 09/01/23 09/16/23 History Metoprolol Succinate [Kapspargo 25 mg PEG/G-TUBE BID 09/01/23 09/16/23 History Sprinkle] Prochlorperazine [Compazine] 10 mg PEG/G-TUBE DAILY 09/01/23 09/16/23 History Amoxic-Pot Clav 400-57Mg/5Ml 10 ml PO Q12H #200 ml 09/20/23 Rx [Augmentin 400-57 mg/5 ml Susp] Gabapentin 300 mg PEG/G-TUBE TID #9 cap 09/20/23 Rx Ipratropium-Albuterol Nebulize 3 ml INHALATION RT-QID #120 each 09/20/23 Rx [Duoneb 0.5 mg-3 mg/3 ml Soln] predniSONE 10 mg PEG/G-TUBE DIRECTED #30 09/20/23 Rx tab traMADol HCl [Ultram] 50 mg PEG/G-TUBE Q6HR PRN #12 tab 09/20/23 Rx Allergies Allergy/AdvReac Type Severity Reaction Status Date / Time No Known Allergies Allergy Verified 09/16/23 17:18 Surgical - Exam Vital Signs Temp Pulse Resp BP Pulse Ox 97.8 F 129 H 24 142/98 92 L 09/16/23 15:20 09/16/23 15:20 09/16/23 15:20 09/16/23 15:20 09/16/23 15:20 Extraorally the patient has postsurgical deformities consistent with floor of mouth cancer treatment and possibly radical neck dissection. Also some skin changes consistent with vascular or nonvascular flap. There is a 1 cm x 4 cm scabbed wound inferior border the mandible possibly related to late stage wound dehiscence or drainage area from osteomyelitis or osteonecrosis of the jaw. Patient has limited mouth opening with tenderness on the right mandible. He exam under the patient's tongue is very difficult due to the postsurgical changes in his tenderness but there was no obvious pus noted. Some tongue movement was noted. No ulcerated lesion was noted. The right molars completely dehisced with the roots completely exposed. No upper teeth noted. Results A CAT scan was reviewed but did not show the mandible save for the TMJ joints. This was insufficient to ascertain whether there was a fracture of the mandible. The mandibular plain films were reviewed with some definite lytic changes on the right side of the jaw. The radiologist read was of no fracture but a CAT scan may prove more conclusive. - Labs 09/19/23 05:17 09/24/23 12:25 Abnormal Lab Results - Last 24 Hours (Table) 09/24/23 Range/Units 12:25 Creatinine 0.52 L (0.66-1.25) mg/dL Diabetes panel 09/24/23 Range/Units 12:25 Creatinine 0.52 L (0.66-1.25) mg/dL Pituitary panel 09/24/23 Range/Units 12:25 Creatinine 0.52 L (0.66-1.25) mg/dL Adrenal panel 09/24/23 Range/Units 12:25 Creatinine 0.52 L (0.66-1.25) mg/dL Assessment and Plan Assessment: Osteoradionecrosis of the right mandible most likely with possible osteomyelitis nonpurulent at this time. Also recurrence of squamous CARCINOMA cannot be ruled out, but he has seen his surgeon recently who diagnosed him with osteoradionecrosis based on the recent order for hyperbaric oxygen. Plan: We should repeat the CAT scan to include the mandible help rule out fracture and forward this information on to Dr. Farzad Rice at [phone]. Time with Patient: Greater than 30 (pt non verbal status made the history very long)
[2023-09-24] MEDS: CHLORHEXIDINE GLUCONATE 15 ML CUP MUCOUS MEM SCH (23:59)
[2023-09-25 06:50] LABS: African American GFR (CKD) >90 (>60 ml/min/1.73 sqM); C Reactive Protein 1.4 mg/dL (<1.0); Non-African American GFR(CKD) >90 (>60 ml/min/1.73 sqM)
--- NOTE | 2023-09-25 11:23 | CT ---
EXAMINATION TYPE: CT Panorex, CT facial bones wo/w con DATE OF EXAM: 09/25/2023 COMPARISON: None HISTORY: r/o osteoradionecrosis of the jaw and mandible fx CT DLP: 1305 mGycm Automated exposure control for dose reduction was used. CONTRAST: CT scan of the facial bones is performed with IV Contrast, patient injected with 100 mL of Isovue 300 . TECHNIQUE: CT scan of the facial bones and mandible is performed with contrast. Axial images are obtained, coronal reformatted images are also reviewed. FINDINGS: There is bone destructive process is noted to involve the right hemimandible from the midline just pr oximal to the angle of the mandible. Small amount of soft tissue air with phlegmon. No drainable absc ess identified. No evidence of pathologic fracture is noted. Masslike area measures 2.9 x 2.2 cm and could reflect phlegmon versus neoplasm. The remainder of the mandible is intact. No additional destructive processes seen or fracture. TMJs a re intact. Maxilla is intact and free of destructive process. Visualized portion of mastoid air cells show no abnormal opacification. The globes are intact bilate rally. IMPRESSION: 1. Bony destructive process involving the right hemimandible as discussed may be infectious in nature with masslike phlegmon seen. Neoplasm is not excluded. Associated pathologic fracture.
[2023-09-25 11:42] LABS: Anisocytosis Slight; Basophils % (A) 0 %; Eosinophils # (A) 0.2 k/uL (0-0.7); Eosinophils % (A) 2 %; HCT 32.2 % (39.0-53.0); HGB 10.3 gm/dL (13.0-17.5); Hypochromasia Moderate; Lymphocytes # (A) 1.1 k/uL (1.0-4.8); Lymphocytes % (A) 9 %; MCH 26.8 pg (25.0-35.0); MCV 83.6 fL (80.0-100.0); Monocytes # (A) 0.5 k/uL (0-1.0); Monocytes % (A) 4 %; Neutrophils # (A) 9.8 k/uL (1.3-7.7); Neutrophils % (A) 83 %; Platelet Count 218 k/uL (150-450); RBC 3.85 m/uL (4.30-5.90); RDW 17.7 % (11.5-15.5); WBC 11.8 k/uL (3.8-10.6)
[2023-09-25 11:55] LABS: African American GFR (CKD) >90 (>60 ml/min/1.73 sqM); Anion Gap 5 mmol/L; Blood Urea Nitrogen 28 mg/dL (9-20); Calcium 8.4 mg/dL (8.4-10.2); Carbon Dioxide 27 mmol/L (22-30); Chloride 101 mmol/L (98-107); Glucose 86 mg/dL (74-99); Non-African American GFR(CKD) >90 (>60 ml/min/1.73 sqM); Potassium 4.4 mmol/L (3.5-5.1); Sodium 133 mmol/L (137-145)
--- NOTE | 2023-09-25 15:11 | P.PN ---
Subjective Progress Note Date: 09/25/23 This is a 63-year-old gentleman with past medical history significant for oral cancer status post tracheostomy and PEG tube, admitted with right distal lateral femoral condylar fracture with small joint effusion, status post fall, acute COPD exacerbation , right mandibular pain with teeth extraction pending - nonhealing eschar right mandible from shaving incident , anemia and multiple other medical issues. Currently maintained on nebulized bronchodilators, steroids ,40% FiO2 trach collar with O2 sats in the 90s. Zosyn initiated yesterday, procalcitonin 0.13. Hemoglobin dropped to 6.3 and 1 unit packed RBCs ordered with recheck later tonight posttransfusion. No signs or symptoms of bleeding. No oozing/bleeding around trach site. Lovenox placed on hold. Dopplers of lower extremity reported negative. Afebrile, normal WBC. Renal function improving. 09/19/2023 continues on nebulized bronchodilators, IV steroids 40% trach collar maintaining O2 sats in the 90s. maintained on IV antibiotics, Zosyn, with decreased tenderness and edema. Reports tender jaw. Received 1 unit of packed RBCs yesterday, current hemoglobin 8.7, platelets 261. Denies chest pain, palpitations or shortness of breath. Afebrile, WBC 10.72. BUN 29.2, creatinine 0.9. 09/20/2023 as per orthopedic surgery:"CT scan of the knee shows a minimally displaced, extra-articular fracture of the lateral condyle. I would recommend non-operative treatment with strict NWB of the right LE and a knee immobilizer. He can follow-up in the office in 7-10 days for repeat xrays and to transition him to a hinged knee brace. " maintained on Zosyn and nebulized bronchodilators, steroids .breathing stable, maintaining O2 sats in the 90s on 40% trach collar. Sputum reported Pseudomonas aeruginosa and presumptive staph aureus. Antibiotics transition to Augmentin via PEG. denies chest pain, palpitations or increased shortness of breath.Pseudomonas aeruginosa, and presumptive Staph aureus in the sputum. 09/22/2023 maintaining O2 sats in the 90s on 35% trach collar. Denies chest pain, palpitations or increased shortness of breath. Reports minimal cough. Denies worsening of jaw pain. wearing right leg/knee brace. Discharge planning in progress for today to subacute rehab pending authorization. 09/25/2023 sputum cultures finalized with Pseudomonas aeruginosa x [address] reported negative for pneumonia. antibiotics adjusted to cefepime and vancomycin as per infectious disease. Complained of right mandibular pain yesterday. X-ray of right mandible reported suspected osteomyelitis right hemimandible. maxillofacial CT head completed reporting limited study with entirety of the mandible not included , recommending a full CT of the facial bones and mandible .evaluated by oral surgeon Dr. Blank. Recommendations noted and appreciated including face CT ordered. Face CT pending. Patient reports no change in mandible pain with change of antibiotics. Maintaining O2 sats in the 90s on 35% trach collar. Afebrile. Denies chest pain, palpitations. Objective - Vital Signs Vital signs: Vital Signs Temp 97.9 F 09/25/23 08:28 Pulse 86 09/25/23 08:28 Resp 19 09/25/23 08:28 BP 117/77 09/25/23 08:28 Pulse Ox 97 09/25/23 08:28 FiO2 35 09/24/23 07:59 Intake & Output 09/24/23 09/25/23 09/25/23 18:59 06:59 18:59 Output Total 1100 Balance -1100 Weight 72.575 kg Output: Urine 1100 - Exam GENERAL: Alert and oriented x3, sitting up in bed,NAD. Communicating via writing. HEENT: Normocephalic, atraumatic. Conjunctivae normal CARDIOVASCULAR: S1 and S2 present. No murmurs, rubs, or gallops. -PULMONARY: Wearing trach collar, equal air entry, scattered rhonchi. -ABDOMEN: Soft, nontender. PEG tube,+BS. -EXTREMITIES: No cyanosis, clubbing, or pedal edema. Wearing brace on right lower extremity. NEUROLOGICAL: Gross neurological examination did not reveal any focal deficits. SKIN: No rashes. Warm and dry. Right lower jaw with necrotic nondraining wound - Labs CBC & Chem 7: 09/25/23 11:32 09/25/23 11:32 Labs: Abnormal Lab Results - Last 24 Hours (Table) 09/24/23 09/25/23 Range/Units 12:25 05:10 Creatinine 0.52 L 0.61 L (0.66-1.25) mg/dL C-Reactive Protein 1.4 H (<1.0) mg/dL Assessment and Plan Assessment: Distal lateral femoral condylar fracture with small joint effusion of right knee status post fall, reported per CT. Per orthopedic surgery:"CT scan of the knee shows a minimally displaced, extra-articular fracture of the lateral condyle. I would recommend non-operative treatment with strict NWB of the right LE and a knee immobilizer. He can follow-up in the office in 7-10 days for repeat xrays and to transition him to a hinged knee brace. " Acute COPD exacerbation, possible pneumonia or tracheobronchitis with sputum cultures reporting Pseudomonas aeruginosa x 2 strains and presumptive Staph aureus Anemia, status post 1 unit packed RBCs Acute on chronic hypoxic respiratory failure secondary to the above Right mandibular pain with teeth extraction pending Right mandibular nonhealing ,eschar secondary to reported shaving incident. Chronic osteoradionecrosis of the right mandible, with possible osteomyelitis, possible recurrence of squamous carcinoma .CT pending. Patient had been receiving hyperbaric oxygen treatment of his osteoradionecrosis, as ordered per his oral surgeon Dr. Farzad Rice, completed 3 out of 20 treatments to date, started in May 2023; missed appointments secondary to weather and to his fractured limb. Oral surgery following History of oral cancer with extensive resection, chemotherapy and radiation, performed at [facility] 2016, with subsequent tracheostomy and PEG. Chronic nicotine dependence History of daily alcohol use Seizure disorder History of marijuana use Plan: Continue on current medication regimen, monitoring and symptomatic treatment. Face CT pending -results to be forwarded to Dr. Farzad Rice as per oral surgery, Dr. Blank. Antibiotics as per infectious disease. Maintain aggressive pulmonary toileting with nebulized bronchodilators, steroids. Discharge currently on hold; case management has found an accepting subacute rehab., [facility]. The impression and plan of care has been dictated as directed. : I performed a history and examination of this patient, discussed the same with the dictator. I agree with the dictator's note ,documented as a scribe. Any additional findings or plans will be noted.
--- NOTE | 2023-09-25 15:35 | P.PN ---
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 He has a history of chronic tobacco dependence, daily alcohol use, marijuana use, anxiety/depression, seizure disorder. He was brought into the emergency room yesterday after sustaining a fall from his chair. EMS found him to suspected him to spend most of his time in a chair as there were over half dozen urine bottles adjacent to the chair. The patient also had some right mandibular pain. He was to have remaining teeth extracted in September. He also has a area of eschar under the right mandible that he states was related to shaving and has not healed properly. CT scan of the right knee revealed distal lateral femoral condylar fracture. Small joint effusion. CT angiogram of the chest was of quite poor quality. No obvious central pulmonary embolism noted. No focal airspace consolidation. Tracheostomy tube in good position. There is debris or debris nearly occluding the tracheostomy tube near the trachea. The patient was seen today in consultation due to increasing shortness of breath cough and congestion. He has a very loose productive cough of significant sputum. He is maintaining O2 saturations in the 90s on 35% trach collar. He is afebrile. Slightly tachycardic. White count 6.4. Hemoglobin 8.3. Sodium 135. Potassium 4.6. Bicarb 23. BUN 34. Creatinine 0.95. Viral screen is negative. Procalcitonin 0.13. The patient is seen today September 18, 2023 and follow-up on the regular medical floor. He is currently sitting up in bed. Awake and alert in no acute dist ress. He is continued on trach collar at 40% FiO2 maintaining O2 saturation in the 90s. His procalcitonin was 0.13. He is continued on Zosyn. Dopplers of the lower extremity were negative. White count 4.9. Hemoglobin dropped to 6.3. Platelets 185. Sodium 133. Potassium 4.9. BUN 26. Creatinine 0.8. Glucose 132. He is status post 1 unit of packed red blood cells. Follow-up hemoglobin pending. He remains on DuoNeb and elations, Solu-Medrol, Robitussin. The patient is seen today September 19, 2023 in follow-up on the regular medical floor. He is awake and alert in no acute distress. Resting in bed. Maintaining good O2 saturations in the 90s on 40% trach collar. He is afebrile. Hemodynamically stable. He is status post 1 unit of packed red blood cells this admission. Current hemoglobin 8.7. Platelets 261. Count 10.7. Sodium 136. Potassium 4.9. Bicarb 24. BUN 30. Creatinine 0.9. Glucose 175. He remains on DuoNeb ventilations, Solu-Medrol, antibiotics in the form of Zosyn. The patient is seen today September 20, 2023 and follow-up on the regular medical floor. He is resting quite comfortably in bed. Awake and alert in no acute distress. Maintaining O2 saturations in the 90s on 40% trach collar. Sputum culture revealed no growth. New labs today. Patient remains on Zosyn. Continued on bronchodilators, Solu-Medrol. The patient is seen today September 21, 2023 in follow-up on the regular medical floor. He is awake and alert in no acute distress. Sitting up in bed. Maintaining good O2 saturations in the 90s on 40% trach collar. He has normal saline at 20 mph. He is continued on Zosyn. He was found to have Pseudomonas aeruginosa and presumptive Staph aureus his sputum. No new labs today. Remains on bronchodilators. Continued on Solu-Medrol. The patient is seen today September 22, 2023 in follow-up on the regular medical floor. He is sitting up in bed. Awake and alert in no acute distress. Continues to maintain good O2 saturations in the 90s on 35% trach collar. No IV fluids. Sputum culture now positive for Pseudomonas aeruginosa and MRSA. Currently on Augmentin. Continued on bronchodilators and prednisone taper. The patient is seen today September 23, 2023 and follow-up on the regular medical floor. He is resting comfortably in bed. Awake and alert in no acute distress. He is status post 1 unit of packed red blood cells this admission. Most recent hemoglobin 8.7. Sputum culture was positive for Pseudomonas aeruginosa as well as a second type of Pseudomonas aeruginosa and MRSA. Creatinine 0.58. He is continued on vancomycin and cefepime. Continued on DuoNeb and elations, Robitussin, prednisone taper. The patient is seen today September 24, 2023 in follow-up on the regular medical floor. Sitting up in bed. Awake and alert in no acute distress. Maintaining O2 saturations in the 90s on 35% trach collar. He is having some complaints of right mandibular pain and an x-ray revealed suspected osteomyelitis in the right hemimandible. Likely dental in origin. Sputum culture was positive for 2 different Pseudomonas aeruginosa's and MRSA. He is continued on vancomycin and cefepime. He is continued on DuoNeb inhalations, prednisone taper. On today's evaluation of 09/25/2023, the patient remains on a 35% trach collar. He is calm and comfortable. He is unable to communicate as the patient has a #[address] tracheostomy tube in place. The patient remains on the same antibiotic coverage which includes a combination of cefepime and vancomycin. 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 Recurrent squamous cell carcinoma within the mandible cannot be completely ruled out. CAT scan of the face and the facial bones confirmed the findings.As such, the patient is kept on broad- spectrum antibiotics. The WBC count is at 11.8, hemoglobin 10.3, BUN is at 28 with a creatinine 0.5 and sodium levels at 133. Vancomycin trough is at 20. Cultures from the sputum that showed a combination of Pseudomonas aeruginosa, MRSA and this could be essentially colonizer. I reviewed the CTA of the chest that was done at time of admission on 09/17/2023 and there is no obvious airspace disease or consolidation. Tracheostomy tube is in good location. The patient had motion artifact which affected the quality of the study. There was no evidence of any pulmonary embolism. CT scan of the face showed bony destruction process in the right hemimandible as discussed above but this could be necrosis versus infection versus malignancy. The patient is also receiving enteral feeding for nutritional support. Objective - Vital Signs Vital signs: Vital Signs Temp 97.9 F 09/25/23 08:28 Pulse 86 09/25/23 08:28 Resp 19 09/25/23 08:28 BP 117/77 09/25/23 08:28 Pulse Ox 97 09/25/23 08:28 FiO2 35 09/24/23 07:59 Intake & Output 09/24/23 09/25/23 09/25/23 18:59 06:59 18:59 Intake Total 237 Output Total 1100 Balance -1100 237 Weight 72.575 kg Intake: Tube Feeding 237 Output: Urine 1100 - Exam GENERAL EXAM: Alert, 63-year-old male, resting comfortably in bed, on trach collar 35 %, in no apparent distress. HEAD: Normocephalic. Eschar noted under right mandible, now painful. EYES: Normal reaction of pupils, equal size. NOSE: Clear with pink turbinates. THROAT: No erythema or exudates. NECK: Tracheostomy tube secured in place. No masses, no JVD. CHEST: No chest wall deformity. LUNGS: Equal air entry with bilateral scattered rhonchi. CVS: S1 and S2 normal with no audible murmur, regular rhythm. ABDOMEN: PEG tube exit site clean and dry. No hepatosplenomegaly, normal bowel sounds, no guarding or rigidity. SPINE: No scoliosis or deformity SKIN: Areas of skin breakdown CENTRAL NERVOUS SYSTEM: No focal deficits, tone is normal in all 4 extremities. EXTREMITIES: There is no peripheral edema. No clubbing, no cyanosis. Peripheral pulses are intact. - Labs CBC & Chem 7: 09/25/23 11:32 09/25/23 11:32 Labs: Abnormal Lab Results - Last 24 Hours (Table) 09/24/23 09/25/23 09/25/23 Range/Units 12:25 05:10 05:10 WBC (3.8-10.6) k/uL RBC (4.30-5.90) m/uL Hgb (13.0-17.5) gm/dL Hct (39.0-53.0) % RDW (11.5-15.5) % Neutrophils # (1.3-7.7) k/uL ESR 43 H (0-20) mm/Hr Creatinine 0.52 L 0.61 L (0.66-1.25) mg/dL C-Reactive Protein 1.4 H (<1.0) mg/dL 09/25/23 Range/Units 11:32 WBC 11.8 H (3.8-10.6) k/uL RBC 3.85 L (4.30-5.90) m/uL Hgb 10.3 L (13.0-17.5) gm/dL Hct 32.2 L (39.0-53.0) % RDW 17.7 H (11.5-15.5) % Neutrophils # 9.8 H (1.3-7.7) k/uL ESR (0-20) mm/Hr Creatinine (0.66-1.25) mg/dL C-Reactive Protein (<1.0) mg/dL Assessment and Plan Plan: Right knee pain secondary to fall/trauma CT scan reveals distal lateral femoral condylar fracture. Small joint effusion, wearing a knee brace as the patient has a minimally displaced right distal femur fracture and he has undergone previous right hip hemiarthroplasty Acute on chronic hypoxemic respiratory failure secondary to acute exacerbation of chronic obstructive pulmonary disease and secondary to pneumonia with sputum culture positive for Pseudomonas aeruginosa and MRSA, those are likely colonizers in the patient's CAT scan of the chest that was done on 09/17/2023 showed no evidence of any pneumonia. History of oral cancer with resection to the floor of the mouth, tongue, mandible and bilateral neck resection with chemo/radiation and with skin graft with subsequent tracheostomy and PEG tube placements. Back in 2017 at [facility], [facility]. 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 De Dios was also noted Sputum positive for Pseudomonas aeruginosa and MRSA, likely colonization Continue vancomycin and cefepime Possible osteomyelitis/osteoradionecrosis of the right hemimandible ID services are following Procalcitonin level is at 0.13 from admission, sedimentation rate is mildly elevated at 43 Continue enteral feeding for nutritional support We will continue to follow
[2023-09-26 06:22] LABS: African American GFR (CKD) >90 (>60 ml/min/1.73 sqM); Non-African American GFR(CKD) >90 (>60 ml/min/1.73 sqM)
--- NOTE | 2023-09-26 07:16 | P.PN ---
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 s/p chemo and radiation and did have a tracheostomy patient has been brought into the hospital after the patient did have a fall patient did have a positive splinter culture grew Pseudomonas x 2 strains and MRSA however CT of the chest was negative for any pneumonia, patient also compla ining of pain to the right lower jaw and did have a wound which she attributed to shaving x-rays done concerning for osteomyelitis On today's evaluation that is 09/25/2023, the patient continues to be afebrile, patient is breathing comfortably on trach collar the patient denies chest pain shortness of breath and no significant cough, patient denies nausea no vomiting, no abdominal pain and no diarrhea. Still complaining of some discomfort to the right lower jaw area. Patient white count is 11.8, creatinine 0.56 CRP 1.4 ESR is 43 Objective - Vital Signs Vital signs: Vital Signs Temp 97.9 F 09/25/23 08:28 Pulse 86 09/25/23 08:28 Resp 19 09/25/23 08:28 BP 117/77 09/25/23 08:28 Pulse Ox 97 09/25/23 08:28 FiO2 35 09/24/23 07:59 Intake & Output 09/24/23 09/25/23 09/25/23 18:59 06:59 18:59 Output Total 1100 Balance -1100 Weight 72.575 kg Output: Urine 1100 - Exam GENERAL DESCRIPTION: Middle-age male lying in bed in no distress HEENT: Right lower jaw did have a necrotic wound minimal surrounding redness no drainage RESPIRATORY SYSTEM: Unlabored breathing , decreased breath sounds at bases HEART: S1 S2 regular rate and rhythm , ABDOMEN: Soft , no tenderness EXTREMITIES: No edema feet - Labs CBC & Chem 7: 09/25/23 11:32 09/26/23 05:01 Labs: Abnormal Lab Results - Last 24 Hours (Table) 09/24/23 09/25/23 Range/Units 12:25 05:10 Creatinine 0.52 L 0.61 L (0.66-1.25) mg/dL C-Reactive Protein 1.4 H (<1.0) mg/dL Assessment and Plan (1) Positive sputum culture for Pseudomonas Current Visit: Yes Status: Acute Code(s): R84.5 - ABNORMAL MICROBIOLOG FINDINGS IN SPECMN FROM RESP ORG/THRX SNOMED Code(s): 43349079481479808 (2) Osteomyelitis of mandible Current Visit: Yes Status: Acute Code(s): M27.2 - INFLAMMATORY CONDITIONS OF JAWS SNOMED Code(s): 328456831 Plan: 1patient with a positive sputum culture growing 2 different strains of Pseud omonas and 1 strain of MRSA in this patient presented to the hospital after he did have a fall patient did not have any fever during this hospital stay did have a normal white count did have a CT angiogram of the chest which did not show any consolidation in the lungs and the patient is breathing comfortably more likely representing colonization of the trach for the pneumonia versus tracheobronchitis 2-patient complaining of pain to the right lower jaw x-rays has been suspicious for osteomyelitis, apparently the patient did have a history of osteoradionecrosis of the right lower jaw for the patient was getting hyperbaric therapy in the outpatient setting could be related with repeat CT has been ordered and results will be forwarded to his treating oral surgeon, if the CT shows Improvement, patient will continue with the current treatment otherwise patient will need biopsy and cultures to rule out recurrence of his malignancy or infectious process this has been discussed in detail with admitting team for now continue with cefepime and vancomycin Dictation was produced using [employer] dictation software. please excuse any grammatical, word or spelling errors. Time with Patient: Less than 30
[2023-09-26 11:05] VITALS: BMI 25.8
--- NOTE | 2023-09-26 11:32 | P.PN ---
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 He has a history of chronic tobacco dependence, daily alcohol use, marijuana use, anxiety/depression, seizure disorder. He was brought into the emergency room yesterday after sustaining a fall from his chair. EMS found him to suspected him to spend most of his time in a chair as there were over half dozen urine bottles adjacent to the chair. The patient also had some right mandibular pain. He was to have remaining teeth extracted in September. He also has a area of eschar under the right mandible that he states was related to shaving and has not healed properly. CT scan of the right knee revealed distal lateral femoral condylar fracture. Small joint effusion. CT angiogram of the chest was of quite poor quality. No obvious central pulmonary embolism noted. No focal airspace consolidation. Tracheostomy tube in good position. There is debris or debris nearly occluding the tracheostomy tube near the trachea. The patient was seen today in consultation due to increasing shortness of breath cough and congestion. He has a very loose productive cough of significant sputum. He is maintaining O2 saturations in the 90s on 35% trach collar. He is afebrile. Slightly tachycardic. White count 6.4. Hemoglobin 8.3. Sodium 135. Potassium 4.6. Bicarb 23. BUN 34. Creatinine 0.95. Viral screen is negative. Procalcitonin 0.13. The patient is seen today September 18, 2023 and follow-up on the regular medical floor. He is currently sitting up in bed. Awake and alert in no acute dist ress. He is continued on trach collar at 40% FiO2 maintaining O2 saturation in the 90s. His procalcitonin was 0.13. He is continued on Zosyn. Dopplers of the lower extremity were negative. White count 4.9. Hemoglobin dropped to 6.3. Platelets 185. Sodium 133. Potassium 4.9. BUN 26. Creatinine 0.8. Glucose 132. He is status post 1 unit of packed red blood cells. Follow-up hemoglobin pending. He remains on DuoNeb and elations, Solu-Medrol, Robitussin. The patient is seen today September 19, 2023 in follow-up on the regular medical floor. He is awake and alert in no acute distress. Resting in bed. Maintaining good O2 saturations in the 90s on 40% trach collar. He is afebrile. Hemodynamically stable. He is status post 1 unit of packed red blood cells this admission. Current hemoglobin 8.7. Platelets 261. Count 10.7. Sodium 136. Potassium 4.9. Bicarb 24. BUN 30. Creatinine 0.9. Glucose 175. He remains on DuoNeb ventilations, Solu-Medrol, antibiotics in the form of Zosyn. The patient is seen today September 20, 2023 and follow-up on the regular medical floor. He is resting quite comfortably in bed. Awake and alert in no acute distress. Maintaining O2 saturations in the 90s on 40% trach collar. Sputum culture revealed no growth. New labs today. Patient remains on Zosyn. Continued on bronchodilators, Solu-Medrol. The patient is seen today September 21, 2023 in follow-up on the regular medical floor. He is awake and alert in no acute distress. Sitting up in bed. Maintaining good O2 saturations in the 90s on 40% trach collar. He has normal saline at 20 mph. He is continued on Zosyn. He was found to have Pseudomonas aeruginosa and presumptive Staph aureus his sputum. No new labs today. Remains on bronchodilators. Continued on Solu-Medrol. The patient is seen today September 22, 2023 in follow-up on the regular medical floor. He is sitting up in bed. Awake and alert in no acute distress. Continues to maintain good O2 saturations in the 90s on 35% trach collar. No IV fluids. Sputum culture now positive for Pseudomonas aeruginosa and MRSA. Currently on Augmentin. Continued on bronchodilators and prednisone taper. The patient is seen today September 23, 2023 and follow-up on the regular medical floor. He is resting comfortably in bed. Awake and alert in no acute distress. He is status post 1 unit of packed red blood cells this admission. Most recent hemoglobin 8.7. Sputum culture was positive for Pseudomonas aeruginosa as well as a second type of Pseudomonas aeruginosa and MRSA. Creatinine 0.58. He is continued on vancomycin and cefepime. Continued on DuoNeb and elations, Robitussin, prednisone taper. The patient is seen today September 24, 2023 in follow-up on the regular medical floor. Sitting up in bed. Awake and alert in no acute distress. Maintaining O2 saturations in the 90s on 35% trach collar. He is having some complaints of right mandibular pain and an x-ray revealed suspected osteomyelitis in the right hemimandible. Likely dental in origin. Sputum culture was positive for 2 different Pseudomonas aeruginosa's and MRSA. He is continued on vancomycin and cefepime. He is continued on DuoNeb inhalations, prednisone taper. On today's evaluation of 09/25/2023, the patient remains on a 35% trach collar. He is calm and comfortable. He is unable to communicate as the patient has a #[address] tracheostomy tube in place. The patient remains on the same antibiotic coverage which includes a combination of cefepime and vancomycin. 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 Recurrent squamous cell carcinoma within the mandible cannot be completely ruled out. CAT scan of the face and the facial bones confirmed the findings.As such, the patient is kept on broad- spectrum antibiotics. The WBC count is at 11.8, hemoglobin 10.3, BUN is at 28 with a creatinine 0.5 and sodium levels at 133. Vancomycin trough is at 20. Cultures from the sputum that showed a combination of Pseudomonas aeruginosa, MRSA and this could be essentially colonizer. I reviewed the CTA of the chest that was done at time of admission on 09/17/2023 and there is no obvious airspace disease or consolidation. Tracheostomy tube is in good location. The patient had motion artifact which affected the quality of the study. There was no evidence of any pulmonary embolism. CT scan of the face showed bony destruction process in the right hemimandible as discussed above but this could be necrosis versus infection versus malignancy. The patient is also receiving enteral feeding for nutritional support. 09/26/2023, the patient is calm and comfortable. No significant respiratory secretions. The tracheostomy tube is in a good location. Remains on the same antibiotic coverage which which is a combination of cefepime and vancomycin. No signs of any respiratory distress. He is on a 35% trach collar. No fever. No chills.No recent labs from today. Nevertheless, the white cell count from yesterday was 11.8 with a hemoglobin 10.3 and a sodium level is at 133. He has a PEG tube and he does he is on enteral feeding where he uses 2 cans of enteral feeding 3 times a day. He is able to tolerate it without any major difficult ies. Objective - Vital Signs Vital signs: Vital Signs Temp 97.6 F 09/26/23 06:55 Pulse 90 09/26/23 09:20 Resp 19 09/26/23 06:55 BP 118/74 09/26/23 06:55 Pulse Ox 98 09/26/23 06:55 FiO2 35 09/26/23 09:07 Intake & Output 09/25/23 09/26/23 09/26/23 18:59 06:59 18:59 Intake Total 711 Output Total 600 Balance 711 -600 Intake: Tube Feeding 711 Output: Urine 600 - Exam GENERAL EXAM: Alert, 63-year-old male, resting comfortably in bed, on trach collar 35 %, in no apparent distress. HEAD: Normocephalic. Eschar noted under right mandible, now painful. EYES: Normal reaction of pupils, equal size. NOSE: Clear with pink turbinates. THROAT: No erythema or exudates. NECK: Tracheostomy tube secured in place. No masses, no JVD. CHEST: No chest wall deformity. LUNGS: Equal air entry with bilateral scattered rhonchi. CVS: S1 and S2 normal with no audible murmur, regular rhythm. ABDOMEN: PEG tube exit site clean and dry. No hepatosplenomegaly, normal bowel sounds, no guarding or rigidity. SPINE: No scoliosis or deformity SKIN: Areas of skin breakdown CENTRAL NERVOUS SYSTEM: No focal deficits, tone is normal in all 4 extremities. EXTREMITIES: There is no peripheral edema. No clubbing, no cyanosis. Peripheral pulses are intact. - Labs CBC & Chem 7: 09/25/23 11:32 09/26/23 05:01 Labs: Abnormal Lab Results - Last 24 Hours (Table) 09/25/23 09/25/23 09/25/23 Range/Units 05:10 11:32 11:32 WBC 11.8 H (3.8-10.6) k/uL RBC 3.85 L (4.30-5.90) m/uL Hgb 10.3 L (13.0-17.5) gm/dL Hct 32.2 L (39.0-53.0) % RDW 17.7 H (11.5-15.5) % Neutrophils # 9.8 H (1.3-7.7) k/uL ESR 43 H (0-20) mm/Hr Sodium 133 L (137-145) mmol/L BUN 28 H (9-20) mg/dL Creatinine 0.56 L (0.66-1.25) mg/dL 09/26/23 Range/Units 05:01 WBC (3.8-10.6) k/uL RBC (4.30-5.90) m/uL Hgb (13.0-17.5) gm/dL Hct (39.0-53.0) % RDW (11.5-15.5) % Neutrophils # (1.3-7.7) k/uL ESR (0-20) mm/Hr Sodium (137-145) mmol/L BUN (9-20) mg/dL Creatinine 0.53 L (0.66-1.25) mg/dL Assessment and Plan Plan: Right knee pain secondary to fall/trauma CT scan reveals distal lateral femoral condylar fracture. Small joint effusion, wearing a knee brace as the patient has a minimally displaced right distal femur fracture and he has undergone previous right hip hemiarthroplasty Acute on chronic hypoxemic respiratory failure secondary to acute exacerbation of chronic obstructive pulmonary disease and secondary to pneumonia with sputum culture positive for Pseudomonas aeruginosa and MRSA, those are likely colonizers in the patient's CAT scan of the chest that was done on 09/17/2023 showed no evidence of any pneumonia. History of oral cancer with resection to the floor of the mouth, tongue, mandible and bilateral neck resection with chemo/radiation and with skin graft with subsequent tracheostomy and PEG tube placements. Back in 2017 at [facility], #6 [address]. 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 The cultures were noted. This could be colonizers. CAT scan of the chest time of admission showed no evidence of any pneumonia. CAT scan of the face was noted, input from Dr. Blank was also noted Sputum positive for Pseudomonas aeruginosa and MRSA, likely colonization Continue vancomycin and cefepime Possible osteomyelitis/osteoradionecrosis of the right hemimandible ID services are following Procalcitonin level is at 0.13 from admission, sedimentation rate is mildly elevated at 43 Continue enteral feeding for nutritional support We will continue to follow
--- NOTE | 2023-09-26 11:54 | P.PN ---
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 s/p chemo and radiation and did have a tracheostomy patient has been brought into the hospital after the patient did have a fall patient did have a positive splinter culture grew Pseudomonas x 2 strains and MRSA however CT of the chest was negative for any pneumonia, patient also compla ining of pain to the right lower jaw and did have a wound which she attributed to shaving x-rays done concerning for osteomyelitis On today's evaluation that is 09/26/2023, the patient remains to be afebrile, patient is currently breathing comfortably on trach collar, patient complaining of some right lower jaw pain, the patient denies chest pain or cough, patient denies abdominal pain, no nausea no vomiting or any diarrhea. Patient did have creatinine 0.53 no CBC was done today CT of the face did show bony destruction process involving the right hemimandible with a masslike phlegmon seen Objective - Vital Signs Vital signs: Vital Signs Temp 97.6 F 09/26/23 06:55 Pulse 90 09/26/23 09:20 Resp 19 09/26/23 06:55 BP 118/74 09/26/23 06:55 Pulse Ox 98 09/26/23 06:55 FiO2 35 09/26/23 09:07 Intake & Output 09/25/23 09/26/23 09/26/23 18:59 06:59 18:59 Intake Total 711 Output Total 600 Balance 711 -600 Weight 72.575 kg Intake: Tube Feeding 711 Output: Urine 600 - Exam GENERAL DESCRIPTION: Middle-age male lying in bed in no distress HEENT: Right lower jaw did have a necrotic wound minimal surrounding redness no drainage RESPIRATORY SYSTEM: Unlabored breathing , decreased breath sounds at bases HEART: S1 S2 regular rate and rhythm , ABDOMEN: Soft , no tenderness EXTREMITIES: No edema feet - Labs CBC & Chem 7: 09/25/23 11:32 09/26/23 05:01 Labs: Abnormal Lab Results - Last 24 Hours (Table) 09/25/23 09/26/23 Range/Units 11:32 05:01 Sodium 133 L (137-145) mmol/L BUN 28 H (9-20) mg/dL Creatinine 0.56 L 0.53 L (0.66-1.25) mg/dL Assessment and Plan (1) Positive sputum culture for Pseudomonas Current Visit: Yes Status: Acute Code(s): R84.5 - ABNORMAL MICROBIOLOG FINDINGS IN SPECMN FROM RESP ORG/THRX SNOMED Code(s): [id number] (2) Osteomyelitis of mandible Current Visit: Yes Status: Acute Code(s): M27.2 - INFLAMMATORY CONDITIONS OF JAWS SNOMED Code(s): 895697400 Plan: 1patient with a positive sputum culture growing 2 different strains of Pseudomonas and 1 strain of MRSA in this patient presented to the hospital after he did have a fall patient did not have any fever during this hospital stay did have a normal white count did have a CT angiogram of the chest which did not show any consolidation in the lungs and the patient is breathing comfortably more likely representing colonization of the trach for the pneumonia versus tracheobronchitis, has received adequate cefepime and vancomycin and can be dis continued on discharge 2-patient complaining of pain to the right lower jaw x-rays has been suspicious for osteomyelitis, apparently the patient did have a history of osteoradionecrosis of the right lower jaw for the patient was getting hyperbaric therapy in the outpatient setting, patient CT did shows significant destructive changes right hemimandible with a masslike phlegmon, the patient CT report has been faxed to his treating physician Dr. Panda as per discussion with the patient nurse as the patient would need further workup including biopsy and culture apparently the patient was on oral Augmentin before coming to the hospital which he will continue This has been discussed with the admitting team working on discharge Dictation was produced using [employer] dictation software. please excuse any grammatical, word or spelling errors. Time with Patient: Less than 30
--- NOTE | 2023-09-26 12:02 | P.DS ---
Providers Date of admission: 09/16/23 18:48 Expected date of discharge: 09/26/23 Attending physician: Phill Tan MD Consults: 09/16/23 18:41 Consult Physician Routine Consulting Provider: Vamsi Townsend Consult Reason/Comments: Knee pain Do you want consulting provider notified?: Yes 09/17/23 09:23 Consult Physician Routine Consulting Provider: Lillian Dukes Consult Reason/Comments: hypoxia Do you want consulting provider notified?: Yes 09/23/23 10:53 Consult Physician Routine Consulting Provider: Lucille Farrell Consult Reason/Comments: Pseudomonas pneumonia sepsis Do you want consulting provider notified?: Yes 09/24/23 16:25 Consult Physician Routine Consulting Provider: Ba Blank Consult Reason/Comments: Abnormal x-ray suspicious for dental infection and osteomyelitis Do you want consulting provider notified?: Yes Primary care physician: Fátima Velarde [facility] Course: Final diagnoses Distal lateral femoral condylar fracture with small joint effusion of right knee status post fall, reported per CT. Per orthopedic surgery:"CT scan of the knee shows a minimally displaced, extra-articular fracture of the lateral condyle. I would recommend non-operative treatment with strict NWB of the right LE and a knee immobilizer. He can follow-up in the office in 7-10 days for repeat xrays and to transition him to a hinged knee brace. " Acute COPD exacerbation, possible pneumonia or tracheobronchitis with sputum cultures reporting Pseudomonas aeruginosa x 2 strains and MRSA, likely colonizers. Augmentin remains antibiotic of choice at [place] as per infectious disease. Anemia, status post 1 unit packed RBCs Acute on chronic hypoxic respiratory failure secondary to the above Right mandibular pain with teeth extraction pending Right mandibular nonhealing ,eschar secondary to reported shaving incident. Chronic osteoradionecrosis of the right mandible, with possible osteomyelitis, possible recurrence of squamous carcinoma . Patient had been receiving hyperbaric oxygen treatment of his osteoradionecrosis, as ordered per his oral surgeon Dr. Farzad Rice, completed 3 out of 20 treatments to date, started in May 2023; missed appointments secondary to weather and to his fractured limb. Evaluated by oral surgery, Dr. Blank recommending repeating CT and information be forwarded to Dr. Farzad Rice. History of oral cancer with extensive resection, chemotherapy and radiation, performed at [facility] 2017, with subsequent tracheostomy and PEG. Chronic nicotine dependence History of daily alcohol use Seizure disorder History of marijuana use Hospital course:This is a 63-year-old gentleman with past medical history significant for oral cancer status post tracheostomy and PEG tube, admitted with right distal lateral femoral condylar fracture with small joint effusion, status post fall, acute COPD exacerbation , right mandibular pain with teeth extraction pending -nonhealing eschar right mandible from shaving incident , anemia and multiple other medical issues. Currently maintained on nebulized bronchodilators, steroids ,40% FiO2 trach collar with O2 sats in the 90s. Zosyn initiated yesterday, procalcitonin 0.13. Hemoglobin dropped to 6.3 and 1 unit packed RBCs ordered with recheck later tonight posttransfusion. No signs or symptoms of bleeding. No oozing/bleeding around trach site. Lovenox placed on hold. Dopplers of lower extremity reported negative. Afebrile, normal WBC. Renal function improving. 09/19/2023 continues on nebulized bronchodilators, IV steroids 40% trach collar m aintaining O2 sats in the 90s. maintained on IV antibiotics, Zosyn, with decreased tenderness and edema. Reports tender jaw. Received 1 unit of packed RBCs yesterday, current hemoglobin 8.7, platelets 261. Denies chest pain, palpitations or shortness of breath. Afebrile, WBC 10.72. BUN 29.2, creatinine 0.9. 09/20/2023 as per orthopedic surgery:"CT scan of the knee shows a minimally displaced, extra-articular fracture of the lateral condyle. I would recommend non-operative treatment with strict NWB of the right LE and a knee immobilizer. He can follow-up in the office in 7-10 days for repeat xrays and to transition him to a hinged knee brace. " maintained on Zosyn and nebulized bronchodilators, steroids .breathing stable, maintaining O2 sats in the 90s on 40% trach collar. Sputum reported Pseudomonas aeruginosa and presumptive staph aureus. Antibiotics transition to Augmentin via PEG. denies chest pain, palpitations or increased shortness of breath.Pseudomonas aeruginosa, and presumptive Staph aureus in the sputum. 09/22/2023 maintaining O2 sats in the 90s on 35% trach collar. Denies chest pain, palpitations or increased shortness of breath. Reports minimal cough. Denies worsening of jaw pain. wearing right leg/knee brace. Discharge planning in progress for today to subacute rehab pending authorization. 09/25/2023 sputum cultures finalized with Pseudomonas aeruginosa x [address] strains [address] reported negative for pneumonia. antibiotics adjusted to cefepime and vancomycin as per infectious disease. Complained of right mandibular pain yesterday. X-ray of right mandible reported suspected osteomyelitis right hemimandible. maxillofacial CT head completed reporting limited study with entirety of the mandible not included , recommending a full C T of the facial bones and mandible .evaluated by oral surgeon Dr. Blank. Recommendations noted and appreciated including face CT ordered. Face CT pending. Patient reports no change in mandible pain with change of antibiotics. Maintaining O2 sats in the 90s on 35% trach collar. Afebrile. Denies chest pain, palpitations. 09/26/2023 sitting up in bed, comfortable, denies increase in shortness of breath, maintaining O2 sats in the 90s on 35% trach collar. Afebrile. Reports occasional cough with no significant respiratory secretions. CRP 1.4, ESR 43. CBC from yesterday reflected WBC 11.8, hemoglobin 10.3, platelets 218, sodium 133, potassium 4.4, bicarb 27, BUN 28, creatinine 0.56. Denies worsening of right mandibular pain. Tolerating enteral feedings via PEG tube, tolerating 2 cans 3 times a day without difficulty. Face CT completed and faxed to Dr. Farzad Alvarenga; confirmation of CT at Dr. Alvarenga's office per -"Danni" with subsequent appointment made for 10/16/2023 for further workup. Patient will be discharged to [facility] subacute rehab today in a stable condition with guarded prognosis pending final DC recommendations and clearance per infectious disease and pulmonary. The impression and plan of care has been dictated as directed. : I performed a history and examination of this patient, discussed the same with the dictator. I agree with the dictator's note ,documented as a scribe. Any additional findings or plans will be noted. Patient Condition at Discharge: Stable Plan - Discharge Summary Discharge Rx Participant: No New Discharge Prescriptions: New Amoxic-Pot Clav 400-57Mg/5Ml [Augmentin 400-57 mg/5 ml Susp] 10 ml PO Q12H #200 ml Ipratropium-Albuterol Nebulize [Duoneb 0.5 mg-3 mg/3 ml Soln] 3 ml INHALATION RT-QID #120 each Chlorhexidine Gluconate [Peridex] 15 ml MUCOUS MEM QID ml predniSONE 10 mg PEG/G-TUBE DIRECTED #30 tab guaiFENesin-DM 100-10MG/5ML [Robitussin DM] 15 ml PEG/G-TUBE Q6HR ml Continue Baclofen [Lioresal] 10 mg PEG/G-TUBE TID Levothyroxine Sodium 25 mcg PEG/G-TUBE DAILY lamoTRIgine [LaMICtal] 25 mg PEG/G-TUBE BID Amitriptyline HCl [Elavil] 25 mg PEG/G-TUBE HS Sodium Chloride Tab 1 gm PEG/G-TUBE DAILY #30 tab Latanoprost [Latanoprost 0.005%] 1 drop BOTH EYES HS Metoprolol Succinate [Kapspargo Sprinkle] 25 mg PEG/G-TUBE BID Gabapentin 300 mg PEG/G-TUBE TID #9 cap busPIRone HCL 5 mg PEG/G-TUBE BID Spironolactone [Aldactone] 25 mg PEG/G-TUBE DAILY #30 tab lisinopriL [Zestril] 2.5 mg PEG/G-TUBE DAILY #30 tab Pantoprazole Sodium [Protonix] 20 mg PEG/G-TUBE DAILY Midodrine [ProAmatine] 5 mg PEG/G-TUBE TID Famotidine [Pepcid] 20 mg PEG/G-TUBE DAILY Prochlorperazine [Compazine] 10 mg PEG/G-TUBE DAILY Changed traMADol HCl [Ultram] 50 mg PEG/G-TUBE Q6HR PRN #12 tab PRN Reason: Pain Discontinued HYDROcodone/APAP 5-325MG [[place] 5-325] 1 tab PEG/G-TUBE BID Ibuprofen [Motrin] 800 mg PEG/G-TUBE TID Discharge Medication List Amitriptyline HCl [Elavil] 25 mg PEG/G-TUBE HS 03/22/22 [History] Baclofen [Lioresal] 10 mg PEG/G-TUBE TID 03/22/22 [History] Levothyroxine Sodium 25 mcg PEG/G-TUBE DAILY 03/22/22 [History] busPIRone HCL 5 mg PEG/G-TUBE BID 03/22/22 [History] lamoTRIgine [LaMICtal] 25 mg PEG/G-TUBE BID 03/22/22 [History] Spironolactone [Aldactone] 25 mg PEG/G-TUBE DAILY #30 tab 03/28/22 [Rx] lisinopriL [Zestril] 2.5 mg PEG/G-TUBE DAILY #30 tab 03/28/22 [Rx] Sodium Chloride Tab 1 gm PEG/G-TUBE DAILY #30 tab 05/02/22 [Rx] Pantoprazole Sodium [Protonix] 20 mg PEG/G-TUBE DAILY 08/27/22 [History] Midodrine [ProAmatine] 5 mg PEG/G-TUBE TID 02/01/23 [History] Famotidine [Pepcid] 20 mg PEG/G-TUBE DAILY 09/01/23 [History] Latanoprost [Latanoprost 0.005%] 1 drop BOTH EYES HS 09/01/23 [History] Metoprolol Succinate [Kapspargo Sprinkle] 25 mg PEG/G-TUBE BID 09/01/23 [History] Prochlorperazine [Compazine] 10 mg PEG/G-TUBE DAILY 09/01/23 [History] Amoxic-Pot Clav 400-57Mg/5Ml [Augmentin 400-57 mg/5 ml Susp] 10 ml PO Q12H #200 ml 09/20/23 [Rx] Gabapentin 300 mg PEG/G-TUBE TID #9 cap 09/20/23 [Rx] Ipratropium-Albuterol Nebulize [Duoneb 0.5 mg-3 mg/3 ml Soln] 3 ml INHALATION RT-QID #120 each 09/20/23 [Rx] predniSONE 10 mg PEG/G-TUBE DIRECTED #30 tab 09/20/23 [Rx] traMADol HCl [Ultram] 50 mg PEG/G-TUBE Q6HR PRN #12 tab 09/20/23 [Rx] Chlorhexidine Gluconate [Peridex] 15 ml MUCOUS MEM QID ml 09/26/23 [Rx] guaiFENesin-DM 100-10MG/5ML [Robitussin DM] 15 ml PEG/G-TUBE Q6HR ml 09/26/23 [Rx] Follow up Appointment(s)/Referral(s): Farzad Rice DDS [REFERRING] - 10/16/23 10:45 am Vamsi Townsend MD [Medical Doctor] - 1 Week (transition into hinged knee brace right leg) Tegan Mckinley [NON-STAFF] - As Needed (Right hinged knee brace) Phill Tan MD [STAFF PHYSICIAN] - 1 Week (After DC from subacute rehab) Patient Instructions/Handouts: Pain Management (DC), Fall Prevention (DC) Activity/Diet/Wound Care/Special Instructions: continue strict non weight bearing right lower extremity with immobilzer. follow up with ortho 7-10 days to transition to hinged brace Discharge Disposition: TRANSFER TO SNF/ECF
[2023-09-26] MEDS: VANCOMYCIN 1,250 MG in SODIUM CHLORIDE 0.9% 250 ML IVPB SCH (18:01)
[2023-09-27] MEDS: VANCOMYCIN TROUGH DUE 1 EACH MISC MISCELLANE ONE (05:52)
[2023-09-27 06:00] LABS: African American GFR (CKD) >90 (>60 ml/min/1.73 sqM); Non-African American GFR(CKD) >90 (>60 ml/min/1.73 sqM)
[2023-09-27 12:44] VITALS: RESP 19
--- NOTE | 2023-09-27 13:19 | P.DS ---
Providers Date of admission: 09/16/23 18:48 Expected date of discharge: 09/27/23 Attending physician: Phill Tan MD Consults: 09/16/23 18:41 Consult Physician Routine Consulting Provider: Vamsi Townsend Consult Reason/Comments: Knee pain Do you want consulting provider notified?: Yes 09/17/23 09:23 Consult Physician Routine Consulting Provider: Lillian Dukes Consult Reason/Comments: hypoxia Do you want consulting provider notified?: Yes 09/23/23 10:53 Consult Physician Routine Consulting Provider: Lucille Farrell Consult Reason/Comments: Pseudomonas pneumonia sepsis Do you want consulting provider notified?: Yes 09/24/23 16:25 Consult Physician Routine Consulting Provider: Ba Blank Consult Reason/Comments: Abnormal x-ray suspicious for dental infection and osteomyelitis Do you want consulting provider notified?: Yes Primary care physician: Fátima Velarde [facility] Course: Final diagnosis Distal lateral femoral condylar fracture with small joint effusion of right knee status post fall, reported per CT. Per orthopedic surgery:"CT scan of the knee shows a minimally displaced, extra-articular fracture of the lateral condyle. I would recommend non-operative treatment with strict NWB of the right LE and a knee immobilizer. He can follow-up in the office in 7-10 days for repeat xrays and to transition him to a hinged knee brace. " Acute COPD exacerbation, possible pneumonia or tracheobronchitis with sputum cultures reporting Pseudomonas aeruginosa x 2 strains and MRSA, likely colonizers. Augmentin remains antibiotic of choice at [place] as per infectious disease. Anemia, status post 1 unit packed RBCs Acute on chronic hypoxic respiratory failure secondary to the above Right mandibular pain with teeth extraction pending Right mandibular nonhealing ,eschar secondary to reported shaving incident. Chronic osteoradionecrosis of the right mandible, with possible osteomyelitis, possible recurrence of squamous carcinoma . Patient had been receiving hyperbaric oxygen treatment of his osteoradionecrosis, as ordered per his oral surgeon Dr. Farzad Rice, completed 3 out of 20 treatments to date, started in May 2023; missed appointments secondary to weather and to his fractured limb. Evaluated by oral surgery, Dr. Blank recommending repeating CT and information be forwarded to Dr. Farzad Rice. History of oral cancer with extensive resection, chemotherapy and radiation, performed at [facility] 2017, with subsequent tracheostomy and PEG. Chronic nicotine dependence History of daily alcohol use Seizure disorder History of marijuana use Discharge disposition Patient is being discharged to [facility]. Patient will follow-up with Dr. Phill Tan after discharge from [facility] and also has been instructed to follow-up with Dr. Rice on scheduled appointment on 10/16/2023 at 10:45 AM along with orthopedics outpatient. Patient will continue oral Augmentin as previously ordered and close outpatient follow-up. Total time taken greater than 35 minutes. Hospital course This is a 63-year-old gentleman with past medical history significant for oral cancer status post tracheostomy and PEG tube, admitted with right distal lateral femoral condylar fracture with small joint effusion, status post fall, acute COPD exacerbation , right mandibular pain with teeth extraction pending - nonhealing eschar right mandible from shaving incident , anemia and multiple other medical issues. Currently maintained on nebulized bronchodilators, steroids ,40% FiO2 trach collar with O2 sats in the 90s. Zosyn initiated yesterday, procalcitonin 0.13. Hemoglobin dropped to 6.3 and 1 unit packed RBCs ordered with recheck later tonight posttransfusion. No signs or symptoms of bleeding. No oozing/bleeding around trach site. Lovenox placed on hold. Dopplers of lower extremity reported negative. Afebrile, normal WBC. Renal function improving. 09/19/2023 continues on nebulized bronchodilators, IV steroids 40% trach collar maintaining O2 sats in the 90s. maintained on IV antibiotics, Zosyn, with decreased tenderness and edema. Reports tender jaw. Received 1 unit of packed RBCs yesterday, current hemoglobin 8.7, platelets 261. Denies chest pain, palpitations or shortness of breath. Afebrile, WBC 10.72. BUN 29.2, creatinine 0.9. 09/20/2023 as per orthopedic surgery:"CT scan of the knee shows a minimally displaced, extra-articular fracture of the lateral condyle. I would recommend non-operative treatment with strict NWB of the right LE and a knee immobilizer. He can follow-up in the office in 7-10 days for repeat xrays and to transition him to a hinged knee brace. " maintained on Zosyn and nebulized bronchodilators, steroids .breathing stable, maintaining O2 sats in the 90s on 40% trach collar. Sputum reported Pseudomonas aeruginosa and presumptive staph aureus. Antibiotics transition to Augmentin via PEG. denies chest pain, palpitations or increased shortness of breath.Pseudomonas aeruginosa, and presumptive Staph aureus in the sputum. 09/22/2023 maintaining O2 sats in the 90s on 35% trach collar. Denies chest pain, palpitations or increased shortness of breath. Reports minimal cough. Denies worsening of jaw pain. wearing right leg/knee brace. Discharge planning in progress for today to subacute rehab pending authorization. 09/25/2023 sputum cultures finalized with Pseudomonas aeruginosa x [address] strains [address] reported negative for pneumonia. antibiotics adjusted to cefepime and vancomycin as per infectious disease. Complained of right mandibular pain yesterday. X-ray of right mandible reported suspected osteomyelitis right hemimandible. maxillofacial CT head completed reporting limited study with entirety of the mandible not included , recommending a full CT of the facial bones and mandible .evaluated by oral surgeon Dr. Blank. Recommendations noted and appreciated including face CT ordered. Face CT pending. Patient reports no change in mandible pain with change of antibiotics. Maintaining O2 sats in the 90s on 35% trach collar. Afebrile. Denies chest pain, palpitations. 09/26/2023 sitting up in bed, comfortable, denies increase in shortness of breath, maintaining O2 sats in the 90s on 35% trach collar. Afebrile. Reports occasional cough with no significant respiratory secretions. CRP 1.4, ESR 43. CBC from yesterday reflected WBC 11.8, hemoglobin 10.3, platelets 218, sodium 133, potassium 4.4, bicarb 27, BUN 28, creatinine 0.56. Denies worsening of right mandibular pain. Tolerating enteral feedings via PEG tube, tolerating 2 cans 3 times a day without difficulty. Face CT completed and faxed to Dr. Farzad Alvarenga; confirmation of CT at Dr. Alvarenga's office per -"Danni" with subsequent appointment made for 10/16/2023 for further workup. Patient will be discharged to [facility] subacute rehab today in a stable condition with guarded prognosis pending final DC recommendations and clearance per infectious disease and pulmonary. 09/27/2023 Patient is seen in follow-up today with multiple medical consultations following including infectious disease. Patient will be continued on oral Augmentin via PEG tube and will continue with close outpatient follow-up. Patient has been cleared for discharge and insurance authorization has been approved to [facility]. Please refer to other consultation notes for further HPI. Physical exam: Gen: This is a 63-year-old male who is awake, alert and oriented x 3, thin built, elderly appearing, emaciated HEENT: Head is atraumatic, normocephalic. Pupils equal, round. Sclerae is anicteric. NECK: Supple. No JVD. No lymphadenopathy. No thyromegaly. LUNGS: Diminished breath sounds bilaterally with scattered rhonchi. No i ntercostal retractions. HEART: S1, S2 are muffled ABDOMEN: Soft. Bowel sounds are present. No masses. No tenderness. PEG tube noted EXTREMITIES: No pedal edema. No calf tenderness. NEUROLOGICAL: Patient is awake, alert and oriented x3. Cranial nerves 2 through 12 are grossly intact. Diffusely weak Please refer to medication reconciliation sheet for further recommendations The impression and plan of care has been dictated by Cady Husain, Nurse Practitioner as directed. Dr. Adeel MD I have performed a history and examination and MDM of this patient, discussed the same with the dictator, and agree with the dictator's assessment and plan as written ,documented as a scribe. Based on total visit time, I have performed more than 50% of the visit. Patient Condition at Discharge: Fair Plan - Discharge Summary Discharge Rx Participant: No New Discharge Prescriptions: New Amoxic-Pot Clav 400-57Mg/5Ml [Augmentin 400-57 mg/5 ml Susp] 10 ml PO Q12H #200 ml Ipratropium-Albuterol Nebulize [Duoneb 0.5 mg-3 mg/3 ml Soln] 3 ml INHALATION RT-QID #120 each Chlorhexidine Gluconate [Peridex] 15 ml MUCOUS MEM QID ml predniSONE 10 mg PEG/G-TUBE DIRECTED #30 tab guaiFENesin-DM 100-10MG/5ML [Robitussin DM] 15 ml PEG/G-TUBE Q6HR ml Psyllium Husk 100% [Metamucil Packet] 6 gm PO DAILY packet Acetaminophen Tab [Tylenol] 1,000 mg PEG/G-TUBE Q6HR PRN tab PRN Reason: Fever And/ Or Pain Continue Baclofen [Lioresal] 10 mg PEG/G-TUBE TID Levothyroxine Sodium 25 mcg PEG/G-TUBE DAILY lamoTRIgine [LaMICtal] 25 mg PEG/G-TUBE BID Amitriptyline HCl [Elavil] 25 mg PEG/G-TUBE HS Sodium Chloride Tab 1 gm PEG/G-TUBE DAILY #30 tab Latanoprost [Latanoprost 0.005%] 1 drop BOTH EYES HS Metoprolol Succinate [Kapspargo Sprinkle] 25 mg PEG/G-TUBE BID Gabapentin 300 mg PEG/G-TUBE TID #9 cap busPIRone HCL 5 mg PEG/G-TUBE BID Spironolactone [Aldactone] 25 mg PEG/G-TUBE DAILY #30 tab lisinopriL [Zestril] 2.5 mg PEG/G-TUBE DAILY #30 tab Pantoprazole Sodium [Protonix] 20 mg PEG/G-TUBE DAILY Midodrine [ProAmatine] 5 mg PEG/G-TUBE TID Famotidine [Pepcid] 20 mg PEG/G-TUBE DAILY Prochlorperazine [Compazine] 10 mg PEG/G-TUBE DAILY Changed traMADol HCl [Ultram] 50 mg PEG/G-TUBE Q6HR PRN #12 tab PRN Reason: Pain Discontinued HYDROcodone/APAP 5-325MG [[place] 5-325] 1 tab PEG/G-TUBE BID Ibuprofen [Motrin] 800 mg PEG/G-TUBE TID Discharge Medication List Amitriptyline HCl [Elavil] 25 mg PEG/G-TUBE HS 03/22/22 [History] Baclofen [Lioresal] 10 mg PEG/G-TUBE TID 03/22/22 [History] Levothyroxine Sodium 25 mcg PEG/G-TUBE DAILY 03/22/22 [History] busPIRone HCL 5 mg PEG/G-TUBE BID 03/22/22 [History] lamoTRIgine [LaMICtal] 25 mg PEG/G-TUBE BID 03/22/22 [History] Spironolactone [Aldactone] 25 mg PEG/G-TUBE DAILY #30 tab 03/28/22 [Rx] lisinopriL [Zestril] 2.5 mg PEG/G-TUBE DAILY #30 tab 03/28/22 [Rx] Sodium Chloride Tab 1 gm PEG/G-TUBE DAILY #30 tab 05/02/22 [Rx] Pantoprazole Sodium [Protonix] 20 mg PEG/G-TUBE DAILY 08/27/22 [History] Midodrine [ProAmatine] 5 mg PEG/G-TUBE TID 02/01/23 [History] Famotidine [Pepcid] 20 mg PEG/G-TUBE DAILY 09/01/23 [History] Latanoprost [Latanoprost 0.005%] 1 drop BOTH EYES HS 09/01/23 [History] Metoprolol Succinate [Kapspargo Sprinkle] 25 mg PEG/G-TUBE BID 09/01/23 [History] Prochlorperazine [Compazine] 10 mg PEG/G-TUBE DAILY 09/01/23 [History] Amoxic-Pot Clav 400-57Mg/5Ml [Augmentin 400-57 mg/5 ml Susp] 10 ml PO Q12H #200 ml 09/20/23 [Rx] Gabapentin 300 mg PEG/G-TUBE TID #9 cap 09/20/23 [Rx] Ipratropium-Albuterol Nebulize [Duoneb 0.5 mg-3 mg/3 ml Soln] 3 ml INHALATION RT-QID #120 each 09/20/23 [Rx] predniSONE 10 mg PEG/G-TUBE DIRECTED #30 tab 09/20/23 [Rx] traMADol HCl [Ultram] 50 mg PEG/G-TUBE Q6HR PRN #12 tab 09/20/23 [Rx] Chlorhexidine Gluconate [Peridex] 15 ml MUCOUS MEM QID ml 09/26/23 [Rx] guaiFENesin-DM 100-10MG/5ML [Robitussin DM] 15 ml PEG/G-TUBE Q6HR ml 09/26/23 [Rx] Acetaminophen Tab [Tylenol] 1,000 mg PEG/G-TUBE Q6HR PRN tab 09/27/23 [Rx] Psyllium Husk 100% [Metamucil Packet] 6 gm PO DAILY packet 09/27/23 [Rx] Follow up Appointment(s)/Referral(s): Farzad Rice DDS [REFERRING] - 10/16/23 10:45 am Phill Tan MD [STAFF PHYSICIAN] - 1 Week (After DC from subacute rehab) Vamsi Townsend MD [Medical Doctor] - 1 Week (transition into hinged knee brace right leg Office not answering Please call to schedule appointment ) Tegan Mckinley [NON-STAFF] - As Needed (Right hinged knee brace) Patient Instructions/Handouts: Pain Management (DC), Fall Prevention (DC) Activity/Diet/Wound Care/Special Instructions: [facility] rehab continue strict non weight bearing right lower extremity with immobilzer. follow up with ortho 7-10 days to transition to hinged brace CBC, BMP in 3 days Tube feeds Discharge Disposition: TRANSFER TO SNF/ECF
--- NOTE | 2023-09-27 13:49 | P.PN ---
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 He has a history of chronic tobacco dependence, daily alcohol use, marijuana use, anxiety/depression, seizure disorder. He was brought into the emergency room yesterday after sustaining a fall from his chair. EMS found him to suspected him to spend most of his time in a chair as there were over half dozen urine bottles adjacent to the chair. The patient also had some right mandibular pain. He was to have remaining teeth extracted in September. He also has a area of eschar under the right mandible that he states was related to shaving and has not healed properly. CT scan of the right knee revealed distal lateral femoral condylar fracture. Small joint effusion. CT angiogram of the chest was of quite poor quality. No obvious central pulmonary embolism noted. No focal airspace consolidation. Tracheostomy tube in good position. There is debris or debris nearly occluding the tracheostomy tube near the trachea. The patient was seen today in consultation due to increasing shortness of breath cough and congestion. He has a very loose productive cough of significant sputum. He is maintaining O2 saturations in the 90s on 35% trach collar. He is afebrile. Slightly tachycardic. White count 6.4. Hemoglobin 8.3. Sodium 135. Potassium 4.6. Bicarb 23. BUN 34. Creatinine 0.95. Viral screen is negative. Procalcitonin 0.13. The patient is seen today September 18, 2023 and follow-up on the regular medical floor. He is currently sitting up in bed. Awake and alert in no acute dist ress. He is continued on trach collar at 40% FiO2 maintaining O2 saturation in the 90s. His procalcitonin was 0.13. He is continued on Zosyn. Dopplers of the lower extremity were negative. White count 4.9. Hemoglobin dropped to 6.3. Platelets 185. Sodium 133. Potassium 4.9. BUN 26. Creatinine 0.8. Glucose 132. He is status post 1 unit of packed red blood cells. Follow-up hemoglobin pending. He remains on DuoNeb and elations, Solu-Medrol, Robitussin. The patient is seen today September 19, 2023 in follow-up on the regular medical floor. He is awake and alert in no acute distress. Resting in bed. Maintaining good O2 saturations in the 90s on 40% trach collar. He is afebrile. Hemodynamically stable. He is status post 1 unit of packed red blood cells this admission. Current hemoglobin 8.7. Platelets 261. Count 10.7. Sodium 136. Potassium 4.9. Bicarb 24. BUN 30. Creatinine 0.9. Glucose 175. He remains on DuoNeb ventilations, Solu-Medrol, antibiotics in the form of Zosyn. The patient is seen today September 20, 2023 and follow-up on the regular medical floor. He is resting quite comfortably in bed. Awake and alert in no acute distress. Maintaining O2 saturations in the 90s on 40% trach collar. Sputum culture revealed no growth. New labs today. Patient remains on Zosyn. Continued on bronchodilators, Solu-Medrol. The patient is seen today September 21, 2023 in follow-up on the regular medical floor. He is awake and alert in no acute distress. Sitting up in bed. Maintaining good O2 saturations in the 90s on 40% trach collar. He has normal saline at 20 mph. He is continued on Zosyn. He was found to have Pseudomonas aeruginosa and presumptive Staph aureus his sputum. No new labs today. Remains on bronchodilators. Continued on Solu-Medrol. The patient is seen today September 22, 2023 in follow-up on the regular medical floor. He is sitting up in bed. Awake and alert in no acute distress. Continues to maintain good O2 saturations in the 90s on 35% trach collar. No IV fluids. Sputum culture now positive for Pseudomonas aeruginosa and MRSA. Currently on Augmentin. Continued on bronchodilators and prednisone taper. The patient is seen today September 23, 2023 and follow-up on the regular medical floor. He is resting comfortably in bed. Awake and alert in no acute distress. He is status post 1 unit of packed red blood cells this admission. Most recent hemoglobin 8.7. Sputum culture was positive for Pseudomonas aeruginosa as well as a second type of Pseudomonas aeruginosa and MRSA. Creatinine 0.58. He is continued on vancomycin and cefepime. Continued on DuoNeb and elations, Robitussin, prednisone taper. The patient is seen today September 24, 2023 in follow-up on the regular medical floor. Sitting up in bed. Awake and alert in no acute distress. Maintaining O2 saturations in the 90s on 35% trach collar. He is having some complaints of right mandibular pain and an x-ray revealed suspected osteomyelitis in the right hemimandible. Likely dental in origin. Sputum culture was positive for 2 different Pseudomonas aeruginosa's and MRSA. He is continued on vancomycin and cefepime. He is continued on DuoNeb inhalations, prednisone taper. On today's evaluation of 09/25/2023, the patient remains on a 35% trach collar. He is calm and comfortable. He is unable to communicate as the patient has a #[address] tracheostomy tube in place. The patient remains on the same antibiotic coverage which includes a combination of cefepime and vancomycin. 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 Recurrent squamous cell carcinoma within the mandible cannot be completely ruled out. CAT scan of the face and the facial bones confirmed the findings.As such, the patient is kept on broad- spectrum antibiotics. The WBC count is at 11.8, hemoglobin 10.3, BUN is at 28 with a creatinine 0.5 and sodium levels at 133. Vancomycin trough is at 20. Cultures from the sputum that showed a combination of Pseudomonas aeruginosa, MRSA and this could be essentially colonizer. I reviewed the CTA of the chest that was done at time of admission on 09/17/2023 and there is no obvious airspace disease or consolidation. Tracheostomy tube is in good location. The patient had motion artifact which affected the quality of the study. There was no evidence of any pulmonary embolism. CT scan of the face showed bony destruction process in the right hemimandible as discussed above but this could be necrosis versus infection versus malignancy. The patient is also receiving enteral feeding for nutritional support. 09/26/2023, the patient is calm and comfortable. No significant respiratory secretions. The tracheostomy tube is in a good location. Remains on the same antibiotic coverage which which is a combination of cefepime and vancomycin. No signs of any respiratory distress. He is on a 35% trach collar. No fever. No chills.No recent labs from today. Nevertheless, the white cell count from yesterday was 11.8 with a hemoglobin 10.3 and a sodium level is at 133. He has a PEG tube and he does he is on enteral feeding where he uses 2 cans of enteral feeding 3 times a day. He is able to tolerate it without any major difficult ies. On today's evaluation of 09/27/2023, the patient is clinically stable and the patient has no specific complaints. No significant orotracheal secretions the patient continues to breathe comfortably. Breathing is nonlabored. He remains on 35% tracheostomy trach collar. No altered mentation. PEG tube feeding is also being provided. No new labs from today. Objective - Vital Signs Vital signs: Vital Signs Temp 97.7 F 09/27/23 07:42 Pulse 88 09/27/23 08:39 Resp 20 09/27/23 08:00 BP 115/75 09/27/23 07:42 Pulse Ox 93 L 09/27/23 07:42 FiO2 40 09/27/23 08:24 Intake & Output 09/26/23 09/27/23 09/27/23 18:59 06:59 18:59 Intake Total 237 Output Total 600 600 Balance -600 -600 237 Weight 72.575 kg Intake: Tube Feeding 237 Output: Urine 600 600 Other: Voiding Method Urinal Urinal - Exam GENERAL EXAM: Alert, 63-year-old male, resting comfortably in bed, on trach collar 35 %, in no apparent distress. HEAD: Normocephalic. Eschar noted under right mandible, now painful. EYES: Normal reaction of pupils, equal size. NOSE: Clear with pink turbinates. THROAT: No erythema or exudates. NECK: Tracheostomy tube secured in place. No masses, no JVD. CHEST: No chest wall deformity. LUNGS: Equal air entry with bilateral scattered rhonchi. CVS: S1 and S2 normal with no audible murmur, regular rhythm. ABDOMEN: PEG tube exit site clean and dry. No hepatosplenomegaly, normal bowel sounds, no guarding or rigidity. SPINE: No scoliosis or deformity SKIN: Areas of skin breakdown CENTRAL NERVOUS SYSTEM: No focal deficits, tone is normal in all 4 extremities. EXTREMITIES: There is no peripheral edema. No clubbing, no cyanosis. Peripheral pulses are intact. - Labs CBC & Chem 7: 09/25/23 11:32 09/27/23 04:48 Labs: Abnormal Lab Results - Last 24 Hours (Table) 09/27/23 Range/Units 04:48 Creatinine 0.55 L (0.66-1.25) mg/dL Assessment and Plan Plan: Right knee pain secondary to fall/trauma CT scan reveals distal lateral femoral condylar fracture. Small joint effusion, wearing a knee brace as the patient has a minimally displaced right distal femur fracture and he has undergone previ ous right hip hemiarthroplasty Acute on chronic hypoxemic respiratory failure secondary to acute exacerbation of chronic obstructive pulmonary disease and secondary to pneumonia with sputum culture positive for Pseudomonas aeruginosa and MRSA, those are likely colonizers in the patient's CAT scan of the chest that was done on 09/17/2023 showed no evidence of any pneumonia. History of oral cancer with resection to the floor of the mouth, tongue, mandible and bilateral neck resection with chemo/radiation and with skin graft with subsequent tracheostomy and PEG tube placements. Back in 2016 at [facility], [facility]. 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 The cultures were noted. This could be colonizers. CAT scan of the chest time of admission showed no evidence of any pneumonia. CAT scan of the face was noted, input from Dr. Blank was also noted Sputum positive for Pseudomonas aeruginosa and MRSA, likely colonization Outpatient antibiotic to be decided by infectious disease Possible osteomyelitis/osteoradionecrosis of the right hemimandible Procalcitonin level is at 0.13 from admission, sedimentation rate is mildly elevated at 43 Continue enteral feeding for nutritional support Pulmonary services will sign off
[2023-09-27 15:43] VITALS: BP 104/65; TEMP 97.9
[2023-09-27 16:13] VITALS: PULSE 88
[2023-09-27] MEDS ORDERED: VANCOMYCIN 1,000 MG in SODIUM CHLORIDE 0.9% 250 ML IVPB SCH (20:00)
--- NOTE | 2023-10-03 13:16 | P.PN ---
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 s/p chemo and radiation and did have a tracheostomy patient has been brought into the hospital after the patient did have a fall patient did have a positive splinter culture grew Pseudomonas x 2 strains and MRSA however CT of the chest was negative for any pneumonia, patient also compla ining of pain to the right lower jaw and did have a wound which she attributed to shaving x-rays done concerning for osteomyelitis On today's evaluation that is 09/27/2023, the patient continues to be afebrile, patient is breathing comfortably on trach collar, patient denies any worsening right lower jaw pain, the patient denies chest pain or cough, patient denies abdominal pain, no nausea no vomiting or any diarrhea. Feeling better no new symptoms No new labs was done today CT of the face did show bony destruction process involving the right hemimandible with a masslike phlegmon seen Objective - Vital Signs Vital signs: Vital Signs Temp 97.7 F 09/27/23 07:42 Pulse 88 09/27/23 12:08 Resp 19 09/27/23 12:13 BP 115/75 09/27/23 07:42 Pulse Ox 93 L 09/27/23 07:42 FiO2 40 09/27/23 08:24 Intake & Output 09/26/23 09/27/23 09/27/23 18:59 06:59 18:59 Intake Total 237 Output Total 600 600 Balance -600 -600 237 Weight 72.575 kg Intake: Tube Feeding 237 Output: Urine 600 600 Other: Voiding Method Urinal Urinal - Exam GENERAL DESCRIPTION: Middle-age male lying in bed in no distress HEENT: Right lower jaw did have a necrotic wound minimal surrounding redness no drainage RESPIRATORY SYSTEM: Unlabored breathing , decreased breath sounds at bases HEART: S1 S2 regular rate and rhythm , ABDOMEN: Soft , no tenderness EXTREMITIES: No edema feet - Labs CBC & Chem 7: 09/25/23 11:32 09/27/23 04:48 Labs: Abnormal Lab Results - Last 24 Hours (Table) 09/27/23 Range/Units 04:48 Creatinine 0.55 L (0.66-1.25) mg/dL Assessment and Plan (1) Positive sputum culture for Pseudomonas Status: Acute Code(s): R84.5 - ABNORMAL MICROBIOLOG FINDINGS IN SPECMN FROM RESP ORG/THRX SNOMED Code(s): 68984921582442123 (2) Osteomyelitis of mandible Status: Acute Code(s): M27.2 - INFLAMMATORY CONDITIONS OF JAWS SNOMED Code(s): 502831030 Plan: 1patient with a positive sputum culture growing 2 different strains of Pseudomonas and 1 strain of MRSA in this patient presented to the hospital after he did have a fall patient did not have any fever during this hospital stay did have a normal white count did have a CT angiogram of the chest which did not show any consolidation in the lungs and the patient is breathing comfortably more likely representing colonization of the trach for the pneumonia versus tra cheobronchitis, has received adequate cefepime and vancomycin and no need for continuation of vancomycin and cefepime on discharge 2-patient complaining of pain to the right lower jaw x-rays has been suspicious for osteomyelitis, apparently the patient did have a history of osteoradionecrosis of the right lower jaw for the patient was getting hyperbaric therapy in the outpatient setting, patient CT did shows significant destructive changes right hemimandible with a masslike phlegmon, the patient CT report has been faxed to his treating physician Dr. Panda as per discussion with the patient nurse as the patient would need further workup including biopsy and culture apparently the patient was on oral Augmentin before coming to the hospital which he will continue to the patient is evaluated by his oral surgeon and will continue with HBO treatment multiple question concern answered Dictation was produced using [employer] dictation software. please excuse any grammatical, word or spelling errors. Time with Patient: Less than 30
== END 2023-09-27 20:02 | DRG 871 ==
LOC: EC 15:10 → 4SSUR 18:47 → OBSVTOIN 18:48 → 4SSUR 18:55
PROVIDERS: ADMIT Family Medicine; ATTEND Family Medicine
PROC: 3E0336Z Introduction of Nutritional Substance into Peripheral Vein, Percutaneous Approach (ICD-10-PCS; principal; 2023-09-16)
PROC: 30233N1 Transfusion of Nonautologous Red Blood Cells into Peripheral Vein, Percutaneous Approach (ICD-10-PCS; 2023-09-18)
DX: A41.52 Sepsis due to Pseudomonas (principal); J15.1 Pneumonia due to Pseudomonas; J96.21 Acute and chronic respiratory failure with hypoxia; J15.212 Pneumonia due to Methicillin resistant Staphylococcus aureus; S82.141A Displaced bicondylar fracture of right tibia, initial encounter for closed fracture; S72.411A Displaced unspecified condyle fracture of lower end of right femur, initial encounter for closed fracture; J44.0 Chronic obstructive pulmonary disease with (acute) lower respiratory infection; J44.1 Chronic obstructive pulmonary disease with (acute) exacerbation; M87.88 Other osteonecrosis, other site; T17.890A Other foreign object in other parts of respiratory tract causing asphyxiation, initial encounter; K94.23 Gastrostomy malfunction; C41.1 Malignant neoplasm of mandible; D64.9 Anemia, unspecified; F32.A Depression, unspecified; G40.909 Epilepsy, unspecified, not intractable, without status epilepticus; E86.0 Dehydration; F17.210 Nicotine dependence, cigarettes, uncomplicated; F41.9 Anxiety disorder, unspecified; I25.2 Old myocardial infarction; K04.7 Periapical abscess without sinus; W07.XXXA Fall from chair, initial encounter; Z79.52 Long term (current) use of systemic steroids; Z85.819 Personal history of malignant neoplasm of unspecified site of lip, oral cavity, and pharynx; Z91.81 History of falling; Z92.21 Personal history of antineoplastic chemotherapy; Z96.41 Presence of insulin pump (external) (internal); Z92.3 Personal history of irradiation; Z99.3 Dependence on wheelchair; M27.2 Inflammatory conditions of jaws; Y84.2 Radiological procedure and radiotherapy as the cause of abnormal reaction of the patient, or of later complication, without mention of misadventure at the time of the procedure; Z79.899 Other long term (current) drug therapy; M89.78 Major osseous defect, other site; Z96.641 Presence of right artificial hip joint; G89.29 Other chronic pain; M54.9 Dorsalgia, unspecified; Y92.009 Unspecified place in unspecified non-institutional (private) residence as the place of occurrence of the external cause
CPT/HCPCS: 36415; 70110; 70486; 70488; 71045; 71275; 72170; 74176; 80048; 80053; 80202; 81003; 82565; 83605; 83735; 83880; 84145; 85025; 85027; 85379; 85652; 86140; 86850; 86900; 86901; 86920; 87070; 87077; 87186; 87205; 87636; 93970; 94640; 94760; 96365; 96375; 96376; 99285

== ENCOUNTER → 2024-07-22 | Outpatient (CLI) | payer MEDICARE, OTHER ==
--- NOTE | 2024-07-22 12:30 | FL ---
Exam Date: 07/22/2024 12:04 PM. Modified barium swallow for dysphagia. Consistencies administered: Various consistency of barium. Fluoro time: 45 secs No images were sent to PACS. Please see speech pathology report. DAP: not recorded mGym2 Gycm2 [facility], , 07/22/2024 12:28 PM
[2024-07-22 12:31] LABS: Anisocytosis Slight; HCT 30.3 % (39.0-53.0); HGB 8.9 gm/dL (13.0-17.5); Hypochromasia Marked; MCH 25.1 pg (25.0-35.0); MCHC 29.2 g/dL (31.0-37.0); Mean Platelet Volume 10.7; Platelet Count 191 k/uL (150-450); Poikilocytosis Moderate; RBC 3.52 m/uL (4.30-5.90); RDW 16.7 % (11.5-15.5); WBC 10.1 k/uL (3.8-10.6)
[2024-07-22 12:37] LABS: ALT 12 U/L (4-49); AST 17 U/L (17-59); African American GFR (CKD) 47 (>60 ml/min/1.73 sqM); Albumin 4.2 g/dL (3.5-5.0); Alkaline Phosphatase 93 U/L (38-126); Anion Gap 12 mmol/L; Blood Urea Nitrogen 37 mg/dL (9-20); Calcium 9.3 mg/dL (8.4-10.2); Carbon Dioxide 21 mmol/L (22-30); Chloride 106 mmol/L (98-107); Glucose 91 mg/dL (74-99); Non-African American GFR(CKD) 41 (>60 ml/min/1.73 sqM); Potassium 4.9 mmol/L (3.5-5.1); Sodium 139 mmol/L (137-145); Total Bilirubin 0.3 mg/dL (0.2-1.3)
[2024-07-22 16:02] LABS: Chol/HDL Ratio 2.13 Ratio; LDL Cholesterol,Calculated 39.7 mg/dL (0.0-131.0)
== END | disposition home or self-care (01) ==
LOC: RADFLMAIN 11:17
PROVIDERS: ATTEND Family Medicine
DX: C06.9 Malignant neoplasm of mouth, unspecified (principal); E55.9 Vitamin D deficiency, unspecified; E11.9 Type 2 diabetes mellitus without complications; I50.9 Heart failure, unspecified; Z98.890 Other specified postprocedural states
CPT/HCPCS: 74230; 80053; 80061; 83036; 84443; 85027

== ENCOUNTER 2024-09-24 07:02 | Day surgery (SDC) | payer MEDICARE, OTHER ==
[2024-09-16 14:39] VITALS: BMI 20.3
[2024-09-24] MEDS: IV FLUID CONTINUATION 1,000 ML IV ONE (07:27)
[2024-09-24 07:32] VITALS: TEMP 97.5
[2024-09-24] MEDS: LACTATED RINGERS 1,000 ML IV SCH (07:49)
[2024-09-24] MEDS ORDERED: PROPOFOL 10 MG/ML 20 ML VIAL IV ONE (08:04)
--- NOTE | 2024-09-24 08:23 | P.PCN ---
Date of Procedure: 09/24/24 Procedure(s) Performed: BRIEF HISTORY: Patient is a 64-year-old pleasant white male scheduled for an elective colonoscopy as a part of evaluation of symptomatic anemia. Patient was scheduled for an upper endoscopy also but because of mandible infection as well as severe swelling, anesthesia did not think upper endoscopy would be safe at this time. PROCEDURE PERFORMED: Colonoscopy. PREOPERATIVE DIAGNOSIS: Symptomatic anemia. IV sedation per Anesthesia. PROCEDURE: After informed consent was obtained, the patient, was brought into the endoscopy unit. IV sedation was administered by Anesthesia under continuous monitoring. Digital rectal examination was normal. Initially the Olympus CF-160 flexible video colonoscope was then inserted in the rectum, gradually advanced into the cecum without any difficulty. Careful examination was performed as the scope was gradually being withdrawn. Ileocecal valve and the appendiceal orifice were visualized and appeared normal. Prep was excellent. Mucosa of the cecum, ascending colon, transverse colon, descending colon, sigmoid colon, and rectum appeared normal. Scattered sigmoid diverticulosis. Retroflexion was performed in the rectum and no lesions were seen. The patient tolerated the procedure well. IMPRESSION: Normal-appearing colon from rectum to cecum no evidence of colorectal neoplasia. Sigmoid diverticulosis. RECOMMENDATIONS: Findings of this examination were discussed with the patient with the patient as well as his family. He was advised to have repeat screening colonoscopy in 10 years..
[2024-09-24 08:45] VITALS: BP 119/71; PULSE 85; RESP 16
== END 2024-09-24 09:00 | disposition home or self-care (01) ==
LOC: ORWHC2ENDO 07:02
PROVIDERS: ATTEND Internal Medicine Gastroenterology
DX: D64.9 Anemia, unspecified (principal); K57.30 Diverticulosis of large intestine without perforation or abscess without bleeding; I25.2 Old myocardial infarction; J44.9 Chronic obstructive pulmonary disease, unspecified; F41.9 Anxiety disorder, unspecified; F32.A Depression, unspecified; G62.9 Polyneuropathy, unspecified; F17.210 Nicotine dependence, cigarettes, uncomplicated; F12.90 Cannabis use, unspecified, uncomplicated; Z85.819 Personal history of malignant neoplasm of unspecified site of lip, oral cavity, and pharynx; Z79.899 Other long term (current) drug therapy; Z98.890 Other specified postprocedural states
CPT/HCPCS: 45378; J2704

== ENCOUNTER → 2024-10-30 | Outpatient (CLI) | payer MEDICARE, OTHER ==
[2024-10-30 13:14] LABS: African American GFR (CKD) >90 (>60 ml/min/1.73 sqM); Blood Urea Nitrogen 22 mg/dL (9-20); Non-African American GFR(CKD) >90 (>60 ml/min/1.73 sqM)
--- NOTE | 2024-10-30 14:02 | CT ---
EXAMINATION TYPE: CT facial bones w con DATE OF EXAM: 10/30/2024 COMPARISON: 09/25/2023 CLINICAL INDICATION: Male, 64 years old with history of M27.2 INFLAMMATORY CONDIT JAW R68.84 C06.9; P HH, Oral CA. TECHNIQUE: CT scan of the facial bones is performed with IV Contrast, patient injected with 100 ml mL of Isovue 300. CT DLP: 690.[address] CTDI: mGy Automated exposure control for dose reduction was used. TECHNIQUE: CT scan of the sinuses is performed without contrast, axial images are obtained, coronal r eformatted images are also reviewed. FINDINGS: The destructive process involving the right and interval from the midline to the angle of the mandibl e again seen and is unchanged. There is a soft tissue mass adjacent to the right mandible with a few air bubbles within it. The findings are suspicious for neoplasm or infectious process. No significant interval change. The remaining osseous structures are intact. There are mild chronic inflammatory changes in the maxillary sinuses. There are postsurgical changes in the soft tissues of the right neck. IMPRESSION: Soft tissue mass adjacent right aspect of the mandible with destruction of the mandible from the midl ine mandible to the angle of the mandible as described above. There has been no significant interval change. Findings could be secondary to an inflammatory process or neoplasm. [facility], Workstation: [id number] 10/30/2024 1:59 PM
== END | disposition home or self-care (01) ==
LOC: RADCTMAIN 12:29
PROVIDERS: ATTEND Family Medicine
DX: C06.9 Malignant neoplasm of mouth, unspecified (principal); M27.2 Inflammatory conditions of jaws; R68.84 Jaw pain
CPT/HCPCS: 82565; 84520; 70487; 36415; Q9967

== ENCOUNTER 2024-11-27 19:16 | Emergency (ER) | payer MEDICARE, OTHER ==
--- NOTE | 2024-11-27 20:10 | ED ---
General Adult HPI - General Chief complaint: Recheck/Abnormal Lab/Rx Stated complaint: peg displacement Time Seen by Provider: 11/27/24 19:25 Source: patient, EMS, RN notes reviewed, old records reviewed Mode of arrival: EMS Limitations: no limitations - History of Present Illness Initial comments: This is a 64-year-old male who has had PEG tube in place for 8 years and this current PEG tube that he accidentally pulled out has been in for a year. Patient states she is here just to get the PEG tube replaced. Patient denies any other problems. - Related Data Home Medications Medication Instructions Recorded Confirmed Amitriptyline HCl [Elavil] 25 mg PEG/G-TUBE HS 03/22/22 09/16/24 Baclofen [Lioresal] 20 mg PEG/G-TUBE TID 03/22/22 09/16/24 Levothyroxine Sodium 50 mcg PEG/G-TUBE DAILY 03/22/22 09/16/24 busPIRone HCL 5 mg PEG/G-TUBE BID 03/22/22 09/16/24 lamoTRIgine [LaMICtal] 25 mg PEG/G-TUBE BID 03/22/22 09/16/24 Pantoprazole Sodium [Protonix] 20 mg PEG/G-TUBE DAILY 08/27/22 09/16/24 Midodrine [ProAmatine] 5 mg PEG/G-TUBE TID 02/01/23 09/16/24 Famotidine [Pepcid] 20 mg PEG/G-TUBE DAILY 09/01/23 09/16/24 Latanoprost [Latanoprost 0.005%] 1 drop BOTH EYES HS 09/01/23 09/24/24 Metoprolol Succinate [Kapspargo 25 mg PEG/G-TUBE BID 09/01/23 09/16/24 Sprinkle] Atorvastatin [Lipitor] 10 mg PO DAILY 09/16/24 09/16/24 Ferrous Sulfate [Iron] 65 mg PO DAILY 09/16/24 09/24/24 Gabapentin 600 mg PEG/G-TUBE TID 09/16/24 09/16/24 HYDROcodone/APAP 10-325MG [[place] 1 tab PO TID 09/16/24 09/24/24 10-325] Ibuprofen 800 mg PO TID 09/16/24 09/16/24 Mv-Mn/Folic/Lutein/Herbal 293 1 tab PO DAILY 09/16/24 09/16/24 [Alive Men 50 Plus Premium Chew] Prochlorperazine [Compazine] 1 tab PO DAILY 09/16/24 09/16/24 Sertraline [Zoloft] 25 mg PO DAILY 09/16/24 09/16/24 fentaNYL 25MCG/HR PATCH [Duragesic 25 mcg TRANSDERM Q72H 09/16/24 09/24/24 25MCG/HR] Aspirin 81 mg PO DAILY 09/24/24 09/24/24 Previous Rx's Medication Instructions Recorded Sodium Chloride Tab 1 gm PEG/G-TUBE DAILY #30 tab 05/02/22 Amoxic-Pot Clav 400-57Mg/5Ml 10 ml PO Q12H #200 ml 09/20/23 [Augmentin 400-57 mg/5 ml Susp] Ipratropium-Albuterol Nebulize 3 ml INHALATION RT-QID #120 each 09/20/23 [Duoneb 0.5 mg-3 mg/3 ml Soln] Chlorhexidine Gluconate [Peridex] 15 ml MUCOUS MEM QID ml 09/26/23 Psyllium Husk 100% [Metamucil 6 gm PO DAILY packet 09/27/23 Packet] Allergies Allergy/AdvReac Type Severity Reaction Status Date / Time No Known Allergies Allergy Verified 11/27/24 19:23 Review of Systems ROS Statement: Those systems with pertinent positive or pertinent negative responses have been documented in the HPI. ROS Other: All systems not noted in ROS Statement are negative. Past Medical History Past Medical History: Cancer, COPD, GERD/Reflux, Myocardial Infarction ([place]), Pneumonia Additional Past Medical History / Comment(s): 07/30/20 fall with impacted R hip fracture/tracheal bronchitis, hemoptysis, pulmonary nodules. 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 Last chemo/radiation in 2016. fell in August 2022, fractured leg and was transferred to [place] per patient Last Myocardial Infarction Date:: 2014 History of Any Multi-Drug Resistant Organisms: None Reported Date of last positivie culture/infection: 09/19/23 MDRO Source:: Sputum Past Surgical History: Heart Catheterization, Joint Replacement, Orthopedic Surgery Additional Past Surgical History / Comment(s): Oral surgery with resection floor of mouth/tongue/mandible and bilateral neck resection with skin graft taken from L upper arm at [facility], tracheostomy, peg tube, colonoscopy , egd, pectoral muscle removed to build tongue, skin grafts for floor of mouth bilateral fractured legs with rods, right hip replaced Past Anesthesia/Blood Transfusion Reactions: No Reported Reaction Additional Past Anesthesia/Blood Transfusion Reaction / Comment(s): adopted - no family hx Past Psychological History: Anxiety, Depression Smoking Status: Current every day smoker Past Alcohol Use History: Daily, Heavy Past Drug Use History: Marijuana - Past Family History Mother Family Medical History: Unable to Obtain Additional Family Medical History / Comment(s): pt is adopted General Exam - General Exam Comments Initial Comments: GENERAL: Patient is well-developed and well-nourished. Patient is nontoxic and well- hydrated and is in no acute distress. ENT: Neck is soft and supple. No significant lymphadenopathy is noted. Oropharynx is clear. Moist mucous membranes. Neck has full range of motion without eliciting any pain. EYES: The sclera were anicteric and conjunctiva were pink and moist. Extraocular movements were intact and pupils were equal round and reactive to light. Eyelids were unremarkable. ABDOMEN: Soft and nontender with normal bowel sounds. PEG tube site does not look infected there is no bleeding. SKIN: Skin is clear with no lesions or rashes and otherwise unremarkable. NEUROLOGIC: Patient is alert and oriented x3. Cranial nerves II through XII are grossly intact. Motor and sensory are also intact. Normal speech, volume and content. Symmetrical smile. MUSCULOSKELETAL: Normal extremities with adequate strength and full range of motion. Limitations: no limitations Course Vital Signs 11/27/24 19:20 Temperature 98.1 F Pulse Rate 90 Respiratory 18 Rate Blood Pressure 110/70 O2 Sat by Pulse 97 Oximetry Procedures - Feeding Tube Replacement Reason for Replacement: fell out Initial Tube Inserted: greater than 2 weeks Type of Tube: gastrostomy Use of Tube: feedings only Insertion Site Prior to Procedure: clean [place] Tube Size (F): 20 Balloon Size (mls): 10 Patient Tolerated Procedure: well Medical Decision Making - Medical Decision Making Was pt. sent in by a medical professional or institution (, PA, LEADER ASSEMBLER, urgent care, hospital, or fci...) When possible be specific @ -No Did you speak to anyone other than the patient for history (EMS, parent, family, police, friend...)? What history was obtained from this source @ -No Did you review nursing and triage notes (agree or disagree)? Why? @ -I reviewed and agree with nursing and triage notes Were old charts reviewed (outside hosp., previous admission, EMS record, old EKG, old radiological studies, urgent care reports/EKG's, fci records)? Report findings @ -No old charts were reviewed Differential Diagnosis? @ -PEG tube placement EKG interpreted by me (3pts min.). @ -As above X-rays interpreted by me (1pt min.). @ -None done CT interpreted by me (1pt min.). @ -None done U/S interpreted by me (1pt. min.). @ -None done What testing was considered but not performed or refused? (CT, X-rays, U/S, labs)? Why? @ -None What meds were considered but not given or refused? Why? @ -None Did you discuss the management of the patient with other professionals (professionals i.e. , PA, LEADER ASSEMBLER, lab, RT, psych nurse, social media marketing analyst, pay station department manager, teacher, small business banking officer, window caser)? Give summary @ -No Was smoking cessation discussed for >3mins.? @ -No Was critical care preformed (if so, how long)? @ -No Were there social determinants of health that impacted care today? How? (Homelessness, low income, unemployed, alcoholism, drug addiction, transportation, low edu. Level, literacy, decrease access to med. care, halfway, rehab)? @ -No Was there de-escalation of care discussed even if they declined (Discuss DNR or withdrawal of care, Hospice)? DNR status @ -No What co-morbidities impacted this encounter? (DM, HTN, Smoking, COPD, CAD, Cancer, CVA, ARF, Chemo, Hep., AIDS, mental health diagnosis, sleep apnea, morbid obesity)? @ -None Was patient admitted / discharged? Hospital course, mention meds given and route, prescriptions, significant lab abnormalities, going to OR and other pertinent info. @ -I replaced the patient's PEG tube without incident and only minimal discomfort. Patient's feeding came right out the PEG tube so placement was good. Undiagnosed new problem with uncertain prognosis? @ -No Drug Therapy requiring intensive monitoring for toxicity (Heparin, Nitro, Insulin, Cardizem)? @ -No Were any procedures done? @ -No Diagnosis/symptom? @ -PEG tube replaced Acute, or Chronic, or Acute on Chronic? @ -Acute Uncomplicated (without systemic symptoms) or Complicated (systemic symptoms)? @ -Default Side effects of treatment? @ -No Exacerbation, Progression, or Severe Exacerbation? @ -No Poses a threat to life or bodily function? How? (Chest pain, [place], [place], pneumonia, PE, COPD, DKA, ARF, appy, cholecystitis, CVA, Diverticulitis, Homicidal, Suicidal, threat to staff... and all critical care pts) @ -No Disposition Clinical Impression: PEG (percutaneous endoscopic gastrostomy) adjustment/replacement/removal Disposition: HOME SELF-CARE Condition: Good Is patient prescribed a controlled substance at d/c from ED?: No Referrals: Phill Tan MD [Primary Care Provider] - 1-2 days Time of Disposition: 20:10
[2024-11-27 20:24] VITALS: BP 111/76; PULSE 85; RESP 20; TEMP 98
== END 2024-11-27 20:22 | disposition home or self-care (01) ==
LOC: EC 19:16
DX: K94.23 Gastrostomy malfunction (principal); F17.200 Nicotine dependence, unspecified, uncomplicated
CPT/HCPCS: 43762; 99283

== ENCOUNTER → 2024-12-16 | Outpatient (CLI) | payer MEDICARE, OTHER ==
--- NOTE | 2024-12-16 15:21 | CTL ---
EXAMINATION TYPE: CT Low Dose Lung DATE OF EXAM: 12/16/2024 10:01 AM COMPARISON: 09/17/2023 CLINICAL INDICATION: Male, 64 years old with history of Z12.2, F17.210, History of COPD, current smok er, 1 pack a day, at least 20 years TECHNIQUE: Low dose computed tomography scan was performed through the chest at 1 mm thick sections a nd reconstructed images in multiple planes at 1 mm and [address] DLP: 96.1 mGycm, CT CTDI: 2.5 mGy, Automated exposure control for dose reduction was used. CT DIAGNOSTIC QUALITY: Satisfactory FINDINGS: Left anterior chest wall injection port with catheter tip at the lower SVC. Heart normal size without pericardial effusion. Extensive three-vessel coronary artery calcifications are noted. Aorta normal caliber with mild atherosclerotic arch calcifications and conventional arch vessel branc jada anatomy. Tracheostomy cannula is noted. Possible abnormal soft tissue thickening along the supraglottic region. Some retained frothy secretio ns are present in the hypopharynx/oropharynx region. Mild bilateral gynecomastia. There is a 1.2 cm lower right paraesophageal lymph node which previously measured 1.1 cm, likely reactive/post inflammatory. Otherwise, no thoracic lymph adenopathy by CT si ze criteria. Moderate diffuse bronchial wall thickening. Some strandy scarring and atelectasis at the lung bases, increased from 2023. A few scattered tiny calcified granulomas are present bilaterally. 5 mm posterior right mid lung pulmonary nodule, axial image 163 remains unchanged. No consolidation or pleural effusion. Visualized upper abdomen shows tiny hiatal hernia. Some punctate calcified granulomas in the spleen. Moderate atherosclerotic calcification visualized abdominal aorta. PEG tube is present. Bones: Dextroconvex curvature of thoracic spine. Moderate degenerative disc disease redemonstrated es pecially mid thoracic spine with prominent endplate Schmorl's nodes of T9. IMPRESSION: 1. Lung RADS 2, benign. Evidence of prior granulomas disease and a stable 5 mm right middle lobe pulm onary nodule. 2. Moderate diffuse bronchial wall thickening suggesting bronchitis or chronic asthma. Increasing str kenneth scarring or atelectasis at the lung bases. Recommend smoking cessation. 3. Tracheostomy cannula, left sided chest wall injection port, extensive three-vessel coronary artery calcifications, and a tiny hiatal hernia. CT LUNG RAD AND CT CHEST RECOMMENDATION: Lung-Rad 2 Benign Appearance or Behavior: Continue annual sc reening with LDCT in 12 months. S Modifier (other clinically significant findings): None [facility], , 12/16/2024 3:18 PM
== END | disposition home or self-care (01) ==
LOC: RADCTMAIN 09:22
PROVIDERS: ATTEND Family Medicine
DX: Z12.2 Encounter for screening for malignant neoplasm of respiratory organs (principal); F17.210 Nicotine dependence, cigarettes, uncomplicated; K44.9 Diaphragmatic hernia without obstruction or gangrene; I25.10 Atherosclerotic heart disease of native coronary artery without angina pectoris; R91.1 Solitary pulmonary nodule; L92.9 Granulomatous disorder of the skin and subcutaneous tissue, unspecified; J98.4 Other disorders of lung; Z93.0 Tracheostomy status
CPT/HCPCS: 71271

== ENCOUNTER → 2024-12-27 | Outpatient (CLI) | payer MEDICARE ==
--- NOTE | 2024-12-27 11:25 | XR ---
EXAMINATION TYPE: XR foot complete LT DATE OF EXAM: 12/27/2024 11:20 AM INDICATION: Patient age:Male; 64 years old; Reason for study: L97.524 NON-PRS CHRONIC ULCER OTH PRT LEFT FOOT; PHH. pain COMPARISON: None TECHNIQUE: The left foot was examined in the AP, oblique, and lateral projections. FINDINGS: Diffuse bone demineralization which limits evaluation. No evidence of any acute osseous pathology. Po st surgical changes of the distal tibia with fixation hardware. No evidence of soft tissue swelling. Joints are preserved. No osseous erosions. IMPRESSION: No evidence of acute fracture. [facility], , 12/27/2024 11:23 AM
[2024-12-27 15:46] LABS: Basophils # (A) 0.09 X 10*3/uL (0.00-0.10); Basophils % (A) 1.1 %; Eosinophils # (A) 0.29 X 10*3/uL (0.04-0.35); Eosinophils % (A) 3.5 %; HCT 34.4 % (39.6-50.0); HGB 10.5 g/dL (13.0-17.0); Lymphocytes # (A) 1.61 X 10*3/uL (0.90-5.00); Lymphocytes % (A) 19.5 %; MCH 24.6 pg (27.0-32.0); MCHC 30.5 g/dL (32.0-37.0); MCV 80.8 FL (80.0-97.0); Mean Platelet Volume 11.1 FL (9.5-12.2); Monocytes # (A) 0.62 X 10*3/uL (0.20-1.00); Monocytes % (A) 7.5 %; NRBC Per 100 WBC 0 X 10*3/uL (0.00-0.01); Neutrophils # (A) 5.62 X 10*3/uL (1.80-7.70); Platelet Count 218 X 10*3/uL (140-440); RBC 4.26 X 10*6/uL (4.40-5.60); RDW 17.1 % (11.5-14.5); WBC 8.26 X 10*3/uL (4.50-10.00)
[2024-12-27 17:00] LABS: ALT 18 U/L (10-49); AST 19 U/L (14-35); Albumin 3.9 g/dL (3.8-4.9); Albumin/Globulin Ratio 0.91 Ratio (1.60-3.17); Alkaline Phosphatase 102 U/L (41-126); BUN/Creat Ratio 36.67 Ratio (12.00-20.00); Calcium 9.6 mg/dL (8.7-10.3); Carbon Dioxide 21.9 mmol/L (21.6-31.8); Chloride 99 mmol/L (96-109); Globulin 4.3 g/dL (1.6-3.3); Glucose 88 mg/dL (70-110); Potassium 4.6 mmol/L (3.5-5.5); Prealbumin 14.6 mg/dL (18.0-42.0); Sodium 135 mmol/L (135-145); Total Bilirubin 0.2 mg/dL (0.3-1.2); Total Protein 8.2 g/dL (6.2-8.2)
== END | disposition home or self-care (01) ==
LOC: LABWHC1 10:15
PROVIDERS: ATTEND Podiatrist
DX: I73.9 Peripheral vascular disease, unspecified (principal); L97.524 Non-pressure chronic ulcer of other part of left foot with necrosis of bone
CPT/HCPCS: 36415; 80053; 84134; 85025

== ENCOUNTER → 2025-01-02 | Outpatient (CLI) | payer MEDICARE ==
--- NOTE | 2025-01-02 09:44 | US ---
EXAMINATION TYPE: US arterial LE multi level DATE OF EXAM: 01/02/2025 9:32 AM COMPARISONS: None. CLINICAL INDICATION: Male, 64 years old with history of I73.9 PERIPHERAL VASCULAR DISEASE, UNSPECIFIE D; Left toe vascular ulcer TECHNIQUE: Systolic pressures were taken of the upper and lower extremity arteries with ankle-brachia l indices and toe brachial indices calculated bilaterally. History of: Smoker: Current Smoker Hypertension: No Diabetic: No Hyperlipidemia: No TIA/CVA: No Previous Vascular Surgery: No CAD: No UT: Yes Vascular Ulcers: Left Claudication: Bilateral Gangrene: No FINDINGS: Doppler Waveforms: Right: Multiphasic DP, monophasic PT Left: Multiphasic Brachial Artery systolic pressure: Right: 107 Left: 94 Posterior Tibial artery systolic pressure: Right: 94 Left: 117 Dorsalis Pedis artery systolic pressure: Right: 94 Left: 89 Ankle-Brachial Indices: Right: 0.88 Left: 1.09 IMPRESSION: HERRERA: Right: Normal 0.9 - 1.4, Recommendation: None Left: Normal 0.9 - 1.4, Recommendation: None [facility], , 01/02/2025 9:42 AM
== END | disposition home or self-care (01) ==
LOC: RADUSWWP 08:52
PROVIDERS: ATTEND Podiatrist
DX: I73.9 Peripheral vascular disease, unspecified (principal); L97.524 Non-pressure chronic ulcer of other part of left foot with necrosis of bone; N18.31 Chronic kidney disease, stage 3a; I50.32 Chronic diastolic (congestive) heart failure; Z93.0 Tracheostomy status
CPT/HCPCS: 93923

== ENCOUNTER 2025-02-02 02:35 | Observation (INO) | payer MEDICARE, OTHER ==
[2025-02-02 03:33] LABS: Basophils # (A) 0.08 10*3/uL (0.00-0.10); Basophils % (A) 1.3 %; Eosinophils # (A) 0.33 10*3/uL (0.04-0.35); Eosinophils % (A) 5.5 %; HCT 33.3 % (39.6-50.0); HGB 10.5 g/dL (13.0-17.0); Lymphocytes # (A) 1.91 10*3/uL (0.90-5.00); Lymphocytes % (A) 31.7 %; MCH 25.1 pg (27.0-32.0); MCHC 31.5 g/dL (32.0-37.0); MCV 79.7 fL (80.0-97.0); Monocytes # (A) 0.53 10*3/uL (0.20-1.00); Monocytes % (A) 8.8 %; Neutrophils # (A) 3.16 10*3/uL (1.80-7.70); Neutrophils % (A) 52.4 %; RBC 4.18 10*6/uL (4.40-5.60); RDW 17.2 % (11.5-14.5); WBC 6.03 10*3/uL (4.50-10.00)
[2025-02-02 03:37] LABS: ALT 13 U/L (4-49); AST 25 U/L (17-59); African American GFR (CKD) >90 (>60 ml/min/1.73 sqM); Albumin 4.2 g/dL (3.5-5.0); Alkaline Phosphatase 91 U/L (38-126); Anion Gap 14 mmol/L; Blood Urea Nitrogen 36 mg/dL (9-20); Calcium 9.1 mg/dL (8.4-10.2); Carbon Dioxide 21 mmol/L (22-30); Chloride 100 mmol/L (98-107); Creatine Kinase 38 U/L (55-170); Glucose 86 mg/dL (74-99); Non-African American GFR(CKD) 88 (>60 ml/min/1.73 sqM); Potassium 3.9 mmol/L (3.5-5.1); Sodium 135 mmol/L (137-145); Total Bilirubin 0.3 mg/dL (0.2-1.3); Total Protein 8.3 g/dL (6.3-8.2)
[2025-02-02 03:39] LABS: Prothrombin Time 11.3 sec (10.0-12.5)
[2025-02-02 03:45] LABS: Partial Thromboplastin Time 20.8 sec (22.0-30.0)
--- NOTE | 2025-02-02 04:32 | ED ---
Neuro HPI - General Chief Complaint: Dizziness Stated Complaint: Left sided numbness Time Seen by Provider: 02/02/25 02:41 Source: patient, EMS Mode of arrival: EMS Limitations: no limitations - History of Present Illness Is the patient presenting with stroke symptoms?: Yes -: unknown Initial Comments: Patient is 64-year-old man here to have evaluation for feeling dizzy/vertigo symptoms associated with left arm numbness. It is difficult to establish the exact symptoms as the patient's speech is limited. He has had previous mandible surgery and has tracheostomy due to head and neck cancer. The patient denies headache. Denies weakness. Does note that the symptoms have improved somewhat on arrival here. Location: left arm History of same: No Place: home Severity: mild Quality: numb, improving Improves With: time Context: sudden onset Associated Symptoms: vertigo - Related Data Home Medications: Home Medications Medication Instructions Recorded Confirmed Amitriptyline HCl [Elavil] 25 mg PEG/G-TUBE HS 03/22/22 09/16/24 Baclofen [Lioresal] 20 mg PEG/G-TUBE TID 03/22/22 09/16/24 Levothyroxine Sodium 50 mcg PEG/G-TUBE DAILY 03/22/22 09/16/24 busPIRone HCL 5 mg PEG/G-TUBE BID 03/22/22 09/16/24 lamoTRIgine [LaMICtal] 25 mg PEG/G-TUBE BID 03/22/22 09/16/24 Pantoprazole Sodium [Protonix] 20 mg PEG/G-TUBE DAILY 08/27/22 09/16/24 Midodrine [ProAmatine] 5 mg PEG/G-TUBE TID 02/01/23 09/16/24 Famotidine [Pepcid] 20 mg PEG/G-TUBE DAILY 09/01/23 09/16/24 Latanoprost [Latanoprost 0.005%] 1 drop BOTH EYES HS 09/01/23 09/24/24 Metoprolol Succinate [Kapspargo 25 mg PEG/G-TUBE BID 09/01/23 09/16/24 Sprinkle] Atorvastatin [Lipitor] 10 mg PO DAILY 09/16/24 09/16/24 Ferrous Sulfate [Iron] 65 mg PO DAILY 09/16/24 09/24/24 Gabapentin 600 mg PEG/G-TUBE TID 09/16/24 09/16/24 HYDROcodone/APAP 10-325MG [[place] 1 tab PO TID 09/16/24 09/24/24 10-325] Ibuprofen 800 mg PO TID 09/16/24 09/16/24 Mv-Mn/Folic/Lutein/Herbal 293 1 tab PO DAILY 09/16/24 09/16/24 [Alive Men 50 Plus Premium Chew] Prochlorperazine [Compazine] 1 tab PO DAILY 09/16/24 09/16/24 Sertraline [Zoloft] 25 mg PO DAILY 09/16/24 09/16/24 fentaNYL 25MCG/HR PATCH [Duragesic 25 mcg TRANSDERM Q72H 09/16/24 09/24/24 25MCG/HR] Aspirin 81 mg PO DAILY 09/24/24 09/24/24 Previous Rx's Medication Instructions Recorded Sodium Chloride Tab 1 gm PEG/G-TUBE DAILY #30 tab 05/02/22 Amoxic-Pot Clav 400-57Mg/5Ml 10 ml PO Q12H #200 ml 09/20/23 [Augmentin 400-57 mg/5 ml Susp] Ipratropium-Albuterol Nebulize 3 ml INHALATION RT-QID #120 each 09/20/23 [Duoneb 0.5 mg-3 mg/3 ml Soln] Chlorhexidine Gluconate [Peridex] 15 ml MUCOUS MEM QID ml 09/26/23 Psyllium Husk 100% [Metamucil 6 gm PO DAILY packet 09/27/23 Packet] Allergies/Adverse Reactions: Allergies Allergy/AdvReac Type Severity Reaction Status Date / Time No Known Allergies Allergy Verified 11/27/24 19:23 Review of Systems ROS Statement: Those systems with pertinent positive or pertinent negative responses have been documented in the HPI. ROS Other: All systems not noted in ROS Statement are negative. Constitutional: Denies: fever, chills, weakness Eyes: Denies: vision change Respiratory: Denies: cough, dyspnea Cardiovascular: Denies: chest pain, palpitations, edema Gastrointestinal: Denies: abdominal pain, nausea, vomiting Genitourinary: Denies: dysuria, hematuria Musculoskeletal: Denies: back pain Skin: Denies: rash Neurological: Reports: numbness, vertigo. Denies: headache, weakness General Exam Limitations: physical limitation (Speech is difficult to interpret) General appearance: alert, in no apparent distress Head exam: Present: atraumatic, normocephalic Eye exam: Present: normal appearance, PERRL, EOMI. Absent: scleral icterus, conjunctival injection ENT exam: Present: mucous membranes dry Neck exam: Present: other (Tracheostomy) Respiratory exam: Present: wheezes. Absent: respiratory distress, rales, rhonchi, stridor, accessory muscle use Cardiovascular Exam: Present: regular rate, normal rhythm, normal heart sounds. Absent: systolic murmur, diastolic murmur, rubs, gallop GI/Abdominal exam: Present: soft, other (PEG tube present). Absent: distended, tenderness, guarding, rebound, rigid Extremities exam: Present: normal inspection, normal capillary refill. Absent: pedal edema, calf tenderness Back exam: Present: normal inspection Neurological exam: Present: alert, oriented X3. Absent: motor sensory deficit Skin exam: Present: warm, dry, intact, normal color. Absent: rash Stroke MDM - Lab Data Result diagrams: 02/02/25 02:54 02/02/25 02:54 Lab Results 02/02/25 02/02/25 02/02/25 Range/Units 02:54 02:54 02:54 WBC 6.03 (4.50-10.00) 10*3/uL RBC 4.18 L (4.40-5.60) 10*6/uL Hgb 10.5 L (13.0-17.0) g/dL Hct 33.3 L (39.6-50.0) % MCV 79.7 L (80.0-97.0) fL MCH 25.1 L (27.0-32.0) pg MCHC 31.5 L (32.0-37.0) g/dL Plt Count 93 L (140-440) 10*3/uL Immature Gran % (Auto) 0.3 % Neutrophils % 52.4 % Lymphocytes % 31.7 % Monocytes % 8.8 % Eosinophils % 5.5 % Basophils % 1.3 % Immature Gran # 0.02 (0.00-0.04) 10*3/uL Neutrophils # 3.16 (1.80-7.70) 10*3/uL Lymphocytes # 1.91 (0.90-5.00) 10*3/uL Monocytes # 0.53 (0.20-1.00) 10*3/uL Eosinophils # 0.33 (0.04-0.35) 10*3/uL Basophils # 0.08 (0.00-0.10) 10*3/uL Manual Slide Review Performed PT 11.3 (10.0-12.5) sec INR 1.0 (<1.2) APTT 20.8 L (22.0-30.0) sec Sodium 135 L (137-145) mmol/L Potassium 3.9 (3.5-5.1) mmol/L Chloride 100 (98-107) mmol/L Carbon Dioxide 21 L (22-30) mmol/L Anion Gap 14 mmol/L BUN 36 H (9-20) mg/dL Creatinine 0.92 (0.66-1.25) mg/dL Est GFR (CKD-EPI)AfAm >90 (>60 ml/min/1.73 sqM) Est GFR (CKD-EPI)NonAf 88 (>60 ml/min/1.73 sqM) Glucose 86 (74-99) mg/dL Calcium 9.1 (8.4-10.2) mg/dL Total Bilirubin 0.3 (0.2-1.3) mg/dL AST 25 (17-59) U/L ALT 13 (4-49) U/L Alkaline Phosphatase 91 (38-126) U/L Creatine Kinase 38 L (55-170) U/L Troponin I (0.000-0.034) ng/mL Total Protein 8.3 H (6.3-8.2) g/dL Albumin 4.2 (3.5-5.0) g/dL 02/02/25 Range/Units 02:54 WBC (4.50-10.00) 10*3/uL RBC (4.40-5.60) 10*6/uL Hgb (13.0-17.0) g/dL Hct (39.6-50.0) % MCV (80.0-97.0) fL MCH (27.0-32.0) pg MCHC (32.0-37.0) g/dL Plt Count (140-440) 10*3/uL Immature Gran % (Auto) % Neutrophils % % Lymphocytes % % Monocytes % % Eosinophils % % Basophils % % Immature Gran # (0.00-0.04) 10*3/uL Neutrophils # (1.80-7.70) 10*3/uL Lymphocytes # (0.90-5.00) 10*3/uL Monocytes # (0.20-1.00) 10*3/uL Eosinophils # (0.04-0.35) 10*3/uL Basophils # (0.00-0.10) 10*3/uL Manual Slide Review PT (10.0-12.5) sec INR (<1.2) APTT (22.0-30.0) sec Sodium (137-145) mmol/L Potassium (3.5-5.1) mmol/L Chloride (98-107) mmol/L Carbon Dioxide (22-30) mmol/L Anion Gap mmol/L BUN (9-20) mg/dL Creatinine (0.66-1.25) mg/dL Est GFR (CKD-EPI)AfAm (>60 ml/min/1.73 sqM) Est GFR (CKD-EPI)NonAf (>60 ml/min/1.73 sqM) Glucose (74-99) mg/dL Calcium (8.4-10.2) mg/dL Total Bilirubin (0.2-1.3) mg/dL AST (17-59) U/L ALT (4-49) U/L Alkaline Phosphatase (38-126) U/L Creatine Kinase (55-170) U/L Troponin I <0.012 (0.000-0.034) ng/mL Total Protein (6.3-8.2) g/dL Albumin (3.5-5.0) g/dL - EKG Data -: EKG Interpreted by In EKG shows normal: sinus rhythm (Rate 72 bpm), axis (Normal), intervals (Normal), QRS complexes (Low voltage QRS complex) Rate: normal Past Medical History Past Medical History: Cancer, COPD, GERD/Reflux, Myocardial Infarction ([place]), Pneumonia Additional Past Medical History / Comment(s): 07/30/20 fall with impacted R hip fracture/tracheal bronchitis, hemoptysis, pulmonary nodules. 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 Last chemo/radiation in 2016. fell in August 2022, fractured leg and was transferred to [place] per patient Last Myocardial Infarction Date:: 2014 History of Any Multi-Drug Resistant Organisms: None Reported Date of last positivie culture/infection: 09/19/23 MDRO Source:: Sputum Past Surgical History: Heart Catheterization, Joint Replacement, Orthopedic Surgery Additional Past Surgical History / Comment(s): Oral surgery with resection floor of mouth/tongue/mandible and bilateral neck resection with skin graft taken from L upper arm at [facility], tracheostomy, peg tube, colonoscopy , egd, pectoral muscle removed to build tongue, skin grafts for floor of mouth bilateral fractured legs with rods, right hip replaced Past Anesthesia/Blood Transfusion Reactions: No Reported Reaction Additional Past Anesthesia/Blood Transfusion Reaction / Comment(s): adopted - no family hx Past Psychological History: Anxiety, Depression Smoking Status: Current every day smoker Past Alcohol Use History: Heavy Past Drug Use History: None Reported - Past Family History Mother Family Medical History: Unable to Obtain Additional Family Medical History / Comment(s): pt is adopted Course Vital Signs 02/02/25 02/02/25 02/02/25 02:41 03:15 05:24 Temperature 98.2 F Pulse Rate 75 69 Respiratory 18 16 Rate Blood Pressure 89/56 109/87 O2 Sat by Pulse 89 L 98 99 Oximetry Disposition Referrals: Phill Tan MD [Primary Care Provider] - 1-2 days
[2025-02-02 04:34] LABS: Platelet Count 93 10*3/uL (140-440)
[2025-02-02] MEDS: SODIUM CHLORIDE 0.9% 500 ML 500 ML IV STA (05:15)
--- NOTE | 2025-02-02 06:11 | CT ---
EXAM: CT Head Without Intravenous Contrast CLINICAL HISTORY: ITS.REASON CT Reason: Neuro deficit, acute, stroke suspected TECHNIQUE: Axial computed tomography images of the head/brain without intravenous contrast. CTDI is 49.2 mGy and DLP is 1253.4 mGy-cm. This CT exam was performed using one or more of the following dose reduction techniques: automated exposure control, adjustment of the mA and/or kV according to patient size, and/or use of iterative reconstruction technique. COMPARISON: Prior head CT from August 27, 2022. FINDINGS: This study is limited secondary to motion artifact. Brain: Unremarkable. No hemorrhage. No significant white matter disease. No edema. Ventricles: Unremarkable. No ventriculomegaly. Bones/joints: Unremarkable. No acute fracture. Soft tissues: Unremarkable. Sinuses: Chronic ethmoid sinusitis. No acute sinusitis. Mastoid air cells: Unremarkable as visualized. No mastoid effusion. IMPRESSION: No evidence of acute intracranial pathology.
--- NOTE | 2025-02-02 07:17 | XR ---
EXAMINATION TYPE: XR chest 1V portable DATE OF EXAM: 02/02/2025 3:37 AM COMPARISON: Chest radiographs from 09/16/2023 CLINICAL INDICATION: Male, 64 years old with history of altered mental status; [facility] TECHNIQUE: XR chest 1V portable Frontal view of the chest. FINDINGS: Lungs/Pleura: There is no evidence of pleural effusion, focal consolidation, or pneumothorax. Pulmonary vascularity: Unremarkable. Heart/mediastinum: Cardiomediastinal silhouette is unremarkable. Musculoskeletal: No acute osseous pathology. Other findings: None Tracheostomy tube projects within the trachea. IMPRESSION: No acute cardiopulmonary disease/process. [facility], , 02/02/2025 7:15 AM
[2025-02-02] MEDS: METOPROLOL TARTRATE 25 MG TAB PEG/G-TUBE SCH (08:54)
[2025-02-02] MEDS: busPIRone HCl 5 MG TAB PEG/G-TUBE SCH (08:54)
[2025-02-02] MEDS: GABAPENTIN 300 MG CAP PEG/G-TUBE SCH (08:54)
[2025-02-02] MEDS: PANTOPRAZOLE 40 MG/10 ML VIAL IVP SCH (08:54)
[2025-02-02] MEDS: BACLOFEN 10 MG TAB PEG/G-TUBE SCH (08:54)
[2025-02-02] MEDS: lamoTRIgine 25 MG TAB PEG/G-TUBE SCH (08:54)
[2025-02-02] MEDS: LEVOTHYROXINE 50 MCG TAB PEG/G-TUBE SCH (08:54)
[2025-02-02] MEDS: SODIUM CHLORIDE 0.9% 1,000 ML IV SCH (08:55)
[2025-02-02] MEDS ORDERED: FAMOTIDINE 20 MG TAB PEG/G-TUBE SCH (09:00)
[2025-02-02] MEDS ORDERED: FAMOTIDINE 20 MG/2 ML VIAL IV SCH (09:00)
[2025-02-02] MEDS ORDERED: NON FORMULARY DRUG (Pantoprazole Sodium [Protonix] 20 MG Tablet) PEG/G-TUBE SCH (09:00)
[2025-02-02] MEDS: SODIUM CHLORIDE TAB 1 GM TAB PEG/G-TUBE SCH (09:05)
[2025-02-02] MEDS: IPRATROPIUM-ALBUTEROL 3 ML NEB INHALATION SCH (10:07)
[2025-02-02] MEDS: CHLORHEXIDINE GLUCONATE 15 ML CUP MUCOUS MEM SCH (10:34)
[2025-02-02] MEDS ORDERED: IBUPROFEN 800 MG TAB PO PRN (11:18)
--- NOTE | 2025-02-02 11:27 | P.HPIM ---
History of Present Illness 64-year-old male came in with complaints of feeling dizzy vertigo and left arm numbness. All of the symptoms resolved at this time. Patient has occasional coming additional episodes but can be reoriented easily. Patient has extensive history with head and neck cancer patient has a PEG tube in place and has a tracheostomy in place. Patient trach site is although has some purulent discharge and foul-smelling discharge. REVIEW OF SYSTEMS: All other systems are negative except those mentioned in the HPI PHYSICAL EXAMINATION: GENERAL: The patient is alert and oriented x3, not in any acute distress. Well developed, well nourished. Tracheostomy and PEG tube and PEG tube site as mentioned above HEENT: Pupils are round and equally reacting to light. EOMI. No scleral icterus. No conjunctival pallor. Normocephalic, atraumatic. No pharyngeal erythema. No thyromegaly. CARDIOVASCULAR: S1 and S2 present. No murmurs, rubs, or gallops. PULMONARY: Chest is clear to auscultation, no wheezing or crackles. ABDOMEN: Soft, nontender, nondistended, normoactive bowel sounds. No palpable organomegaly. MUSCULOSKELETAL: No joint swelling or deformity. EXTREMITIES: No cyanosis, clubbing, or pedal edema. NEUROLOGICAL: Gross neurological examination did not reveal any focal deficits. SKIN: No rashes. 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 extensive neck surgery with a tracheostomy and PEG - Anxiety/depression - Peripheral neuropathy - Hypothyroidism - Chronic pain for which patient is on fentanyl patch multiple other pain medications will monitor for any constipation - Hyperlipidemia Problem mention chronic medical problems patient was resumed on appropriate home medications DVT prophylaxis: Lovenox Past Medical History Past Medical History: Cancer, COPD, GERD/Reflux, Myocardial Infarction ([place]), Pneumonia Additional Past Medical History / Comment(s): 07/30/20 fall with impacted R hip fracture/tracheal bronchitis, hemoptysis, pulmonary nodules. 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 Last chemo/radiation in 2016. fell in August 2022, fractured leg and was transferred to [place] per patient Last Myocardial Infarction Date:: 2014 History of Any Multi-Drug Resistant Organisms: None Reported Date of last positivie culture/infection: 09/19/23 MDRO Source:: Sputum Past Surgical History: Heart Catheterization, Joint Replacement, Orthopedic Surgery Additional Past Surgical History / Comment(s): Oral surgery with resection floor of mouth/tongue/mandible and bilateral neck resection with skin graft taken from L upper arm at [facility], tracheostomy, peg tube, colonoscopy , egd, pectoral muscle removed to build tongue, skin grafts for floor of mouth bilateral fractured legs with rods, right hip replaced Past Anesthesia/Blood Transfusion Reactions: No Reported Reaction Additional Past Anesthesia/Blood Transfusion Reaction / Comment(s): adopted - no family hx Past Psychological History: Anxiety, Depression Smoking Status: Current every day smoker Past Alcohol Use History: Heavy Past Drug Use History: None Reported - Past Family History Mother Family Medical History: Unable to Obtain Additional Family Medical History / Comment(s): pt is adopted Medications and Allergies Home Medications Medication Instructions Recorded Confirmed Type Amitriptyline HCl [Elavil] 25 mg PEG/G-TUBE DAILY 03/22/22 02/02/25 History Baclofen [Lioresal] 20 mg PEG/G-TUBE TID 03/22/22 02/02/25 History busPIRone HCL 5 mg PEG/G-TUBE BID 03/22/22 02/02/25 History lamoTRIgine [LaMICtal] 25 mg PEG/G-TUBE BID 03/22/22 02/02/25 History Sodium Chloride Tab 1 gm PEG/G-TUBE DAILY #30 tab 05/02/22 02/02/25 Rx Pantoprazole Sodium [Protonix] 20 mg PEG/G-TUBE BID 08/27/22 02/02/25 History Midodrine [ProAmatine] 5 mg PEG/G-TUBE BID 02/01/23 02/02/25 History Famotidine [Pepcid] 20 mg PEG/G-TUBE DAILY 09/01/23 02/02/25 History Latanoprost [Latanoprost 0.005%] 1 drop BOTH EYES HS 09/01/23 02/02/25 History Atorvastatin [Lipitor] 10 mg PEG/G-TUBE DAILY 09/16/24 02/02/25 History Gabapentin 600 mg PEG/G-TUBE TID 09/16/24 02/02/25 History HYDROcodone/APAP 10-325MG [[place] 1 tab PEG/G-TUBE TID 09/16/24 02/02/25 History 10-325] Ibuprofen 800 mg PO TID PRN 09/16/24 02/02/25 History Mv-Mn/Folic/Lutein/Herbal 293 1 tab PEG/G-TUBE DAILY 09/16/24 02/02/25 History [Alive Men 50 Plus Premium Chew] Prochlorperazine [Compazine] 10 mg PEG/G-TUBE DAILY 09/16/24 02/02/25 History Sertraline [Zoloft] 25 mg PO DAILY 09/16/24 02/02/25 History Aspirin 81 mg PEG/G-TUBE DAILY 09/24/24 02/02/25 History Abaloparatide [Tymlos] 80 mcg SQ DAILY 02/02/25 02/02/25 History Brimonidine Tartrate [Alphagan P 1 drop LEFT EYE BID 02/02/25 02/02/25 History 0.2% Ophth Soln] Levothyroxine Sodium [Synthroid] 50 mcg PO DAILY 02/02/25 02/02/25 History Metoprolol Succinate (ER) [Toprol 50 mg PEG/G-TUBE DAILY 02/02/25 02/02/25 History Xl] Varenicline [Chantix Continuing 1 mg PEG/G-TUBE BID 02/02/25 02/02/25 History Pack] fentaNYL 12MCG/HR PATCH [Duragesic 1 patch TRANSDERM Q72H 02/02/25 02/02/25 History 12MCG/HR] Allergies Allergy/AdvReac Type Severity Reaction Status Date / Time No Known Allergies Allergy Verified 02/02/25 10:08 Physical Exam Vitals: Vital Signs Temp Pulse Resp BP Pulse Ox 02/02/25 09:18 98.2 F 76 22 118/90 97 02/02/25 05:24 69 16 109/87 99 02/02/25 03:15 98 02/02/25 02:41 98.2 F 75 18 89/56 89 L Intake and Output 02/01/25 02/02/25 02/02/25 22:59 06:59 14:59 Other: Weight 64.093 kg Results CBC & Chem 7: 02/02/25 02:54 02/02/25 02:54 Labs: Abnormal Lab Results - Last 24 Hours (Table) 02/02/25 02/02/25 02/02/25 Range/Units 02:54 02:54 02:54 RBC 4.18 L (4.40-5.60) 10*6/uL Hgb 10.5 L (13.0-17.0) g/dL Hct 33.3 L (39.6-50.0) % MCV 79.7 L (80.0-97.0) fL MCH 25.1 L (27.0-32.0) pg MCHC 31.5 L (32.0-37.0) g/dL Plt Count 93 L (140-440) 10*3/uL APTT 20.8 L (22.0-30.0) sec Sodium 135 L (137-145) mmol/L Carbon Dioxide 21 L (22-30) mmol/L BUN 36 H (9-20) mg/dL Creatine Kinase 38 L (55-170) U/L Total Protein 8.3 H (6.3-8.2) g/dL
[2025-02-02] MEDS: CEPHALEXIN 250 MG/5 ML SUSPENSION PEG/G-TUBE SCH (14:11)
[2025-02-02] MEDS: SERTRALINE 25 MG TAB PO SCH (14:11)
[2025-02-02] MEDS: HYDROcodone/APAP 10-325MG 1 EACH TAB PEG/G-TUBE SCH (17:11)
[2025-02-02] MEDS: MIDODRINE 5 MG TAB PEG/G-TUBE SCH (17:12)
--- NOTE | 2025-02-02 17:13 | P.CNNES ---
History of Present Illness Consult date: 02/02/25 History of Present Illness: The patient is a 64-year-old male who was seen in neurologic consultation on February 02, 2025, in collaboration with Luba Herbert, via teleneurology. The patient has a past medical history of head and neck cancer, status post tracheostomy and PEG tube placement. Patient reportedly came into the emergency department with complaints of dizziness/vertigo as well as left sided numbness. According to review of the chart, the patient's symptoms of numbness had improved when he arrived at the emergency department. The patient reports pain in his head, numbness and pain in his arms and legs, worse in the left. He denies weakness. He reports that the symptoms lasted for only a few minutes. The patient denies changes in vision. When describing the dizziness, the patient denies vertigo he states that his symptoms of numbness were more of a "squeezing" sensation. The patient denies a history of similar symptoms. There is no history of stroke. In the emergency department, CT scan of the brain was performed. There was no reported evidence of acute hemorrhage or infarct. Laboratory evaluation reveals a slightly low sodium of 135. Potassium normal at 3.9. BUN is elevated at 36, with a creatinine of 0.92. The patient's blood pressure in the emergency department was 89/56. Past Medical History Past Medical History: Cancer, COPD, GERD/Reflux, Myocardial Infarction ([place]), Pneumonia Additional Past Medical History / Comment(s): 07/30/20 fall with impacted R hip fracture/tracheal bronchitis, hemoptysis, pulmonary nodules. 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 Last chemo/radiation in 2016. fell in August 2022, fractured leg and was transferred to [place] per patient Last Myocardial Infarction Date:: 2014 History of Any Multi-Drug Resistant Organisms: None Reported Date of last positivie culture/infection: 09/19/23 MDRO Source:: Sputum Past Surgical History: Heart Catheterization, Joint Replacement, Orthopedic Surgery Additional Past Surgical History / Comment(s): Oral surgery with resection floor of mouth/tongue/mandible and bilateral neck resection with skin graft taken from L upper arm at [facility], tracheostomy, peg tube, colonoscopy , egd, pectoral muscle removed to build tongue, skin grafts for floor of mouth bilateral fractured legs with rods, right hip replaced Past Anesthesia/Blood Transfusion Reactions: No Reported Reaction Additional Past Anesthesia/Blood Transfusion Reaction / Comment(s): adopted - no family hx Past Psychological History: Anxiety, Depression Smoking Status: Current every day smoker Past Alcohol Use History: Heavy Past Drug Use History: None Reported - Past Family History Mother Family Medical History: Unable to Obtain Additional Family Medical History / Comment(s): pt is adopted Medications and Allergies Home Medications Medication Instructions Recorded Confirmed Type Amitriptyline HCl [Elavil] 25 mg PEG/G-TUBE DAILY 03/22/22 02/02/25 History Baclofen [Lioresal] 20 mg PEG/G-TUBE TID 03/22/22 02/02/25 History busPIRone HCL 5 mg PEG/G-TUBE BID 03/22/22 02/02/25 History lamoTRIgine [LaMICtal] 25 mg PEG/G-TUBE BID 03/22/22 02/02/25 History Sodium Chloride Tab 1 gm PEG/G-TUBE DAILY #30 tab 05/02/22 02/02/25 Rx Pantoprazole Sodium [Protonix] 20 mg PEG/G-TUBE BID 08/27/22 02/02/25 History Midodrine [ProAmatine] 5 mg PEG/G-TUBE BID 02/01/23 02/02/25 History Famotidine [Pepcid] 20 mg PEG/G-TUBE DAILY 09/01/23 02/02/25 History Latanoprost [Latanoprost 0.005%] 1 drop BOTH EYES HS 09/01/23 02/02/25 History Atorvastatin [Lipitor] 10 mg PEG/G-TUBE DAILY 09/16/24 02/02/25 History Gabapentin 600 mg PEG/G-TUBE TID 09/16/24 02/02/25 History HYDROcodone/APAP 10-325MG [[place] 1 tab PEG/G-TUBE TID 09/16/24 02/02/25 History 10-325] Ibuprofen 800 mg PO TID PRN 09/16/24 02/02/25 History Mv-Mn/Folic/Lutein/Herbal 293 1 tab PEG/G-TUBE DAILY 09/16/24 02/02/25 History [Alive Men 50 Plus Premium Chew] Prochlorperazine [Compazine] 10 mg PEG/G-TUBE DAILY 09/16/24 02/02/25 History Sertraline [Zoloft] 25 mg PO DAILY 09/16/24 02/02/25 History Aspirin 81 mg PEG/G-TUBE DAILY 09/24/24 02/02/25 History Abaloparatide [Tymlos] 80 mcg SQ DAILY 02/02/25 02/02/25 History Brimonidine Tartrate [Alphagan P 1 drop LEFT EYE BID 02/02/25 02/02/25 History 0.2% Ophth Soln] Levothyroxine Sodium [Synthroid] 50 mcg PO DAILY 02/02/25 02/02/25 History Metoprolol Succinate (ER) [Toprol 50 mg PEG/G-TUBE DAILY 02/02/25 02/02/25 History Xl] Varenicline [Chantix Continuing 1 mg PEG/G-TUBE BID 02/02/25 02/02/25 History Pack] fentaNYL 12MCG/HR PATCH [Duragesic 1 patch TRANSDERM Q72H 02/02/25 02/02/25 History 12MCG/HR] Allergies Allergy/AdvReac Type Severity Reaction Status Date / Time No Known Allergies Allergy Verified 02/02/25 10:08 Physical Examination - Vital Signs Vital Signs: Vital Signs Temp Pulse Resp BP Pulse Ox 02/02/25 09:18 98.2 F 76 22 118/90 97 02/02/25 05:24 69 16 109/87 99 02/02/25 03:15 98 02/02/25 02:41 98.2 F 75 18 89/56 89 L Intake and Output 02/01/25 02/02/25 02/02/25 22:59 06:59 14:59 Other: Weight 64.093 kg General: The patient is reclining in the bed. He is a thin man. He is in no acute distress. HEENT: Head is atraumatic, normocephalic. Fundus not visualized. There is no scleral icterus. Mucous membranes are moist. Neck: Supple without carotid bruits. Tracheostomy is in place. There is purulent drainage. Heart: Regular rate and rhythm Lungs: No obvious shortness of breath or cough Extremities: Without edema Neurological examination Mental status: The patient is awake, alert and oriented x 3. Speech is difficult to understand, secondary to tracheostomy. Cranial nerves: Pupils are equal at 2 mm and reactive. Visual carrillo are full to confrontation. There is no nystagmus. Facial sensation is intact. There is no facial asymmetry. Hearing is grossly intact. Uvula and palate are midline. Shoulder shrug is symmetric. Tongue protrudes midline. Motor: Strength is 5/5 in the bilateral upper and lower extremities. Sensation: Intact to light touch throughout. There is no extinction with double simultaneous stimulation. Coordination: [id number], rapid alternating movements and [id number] testing are intact. There is no pronator drift. Deep tendon reflexes: 2+/4+ in the bilateral upper extremities. Lower extremity reflexes are absent. Gait: Not assessed Results CT scan of the brain images have been personally viewed. I agree with the radiology report - Laboratory Findings CBC and BMP: 02/02/25 02:54 02/02/25 02:54 Abnormal Lab Findings: Abnormal Labs 02/02/25 02/02/25 02/02/25 02:54 02:54 02:54 RBC 4.18 L Hgb 10.5 L Hct 33.3 L MCV 79.7 L MCH 25.1 L MCHC 31.5 L Plt Count 93 L APTT 20.8 L Sodium 135 L Carbon Dioxide 21 L BUN 36 H Creatine Kinase 38 L Total Protein 8.3 H Assessment and Plan Assessment: 1. Left sided numbness, currently resolved. The patient has a focal, nonlateralizing neurological examination. Likely symptoms are secondary to transient ischemic attack 2. History of head and neck cancer status post tracheostomy and PEG tube placement 3. Plan: 1. TIA workup including, lipid panel, hemoglobin A1c, PT, OT and speech therapy evaluations. 2. 2D echocardiogram 3. Neurochecks 4. Dual antiplatelet therapy for 21 days, then continue with Plavix monotherapy thereafter Thank you for allowing us to participate in the care of this patient Dr. Mitchell will assume neurologic coverage of this patient as of February 03, 2025 Time with Patient: Greater than 30 (65 minutes were spent caring for this patient today including, obtaining history, examining the patient, reviewing imaging, chart documentation, labs, placing orders and creating this note)
[2025-02-02] MEDS: VARENICLINE 1 MG TAB PEG/G-TUBE SCH (21:27)
[2025-02-02] MEDS: AMITRIPTYLINE HCL 25 MG TAB PEG/G-TUBE SCH (21:28)
[2025-02-02] MEDS: LATANOPROST 0.005% OPHTH DROPS 2.5 ML BTL BOTH EYES SCH (22:46)
[2025-02-02] MEDS: BRIMONIDINE TARTRATE 0.2% DROPS 5 ML BTL LEFT EYE SCH (22:46)
[2025-02-03 07:52] VITALS: TEMP 96.8
[2025-02-03 08:24] LABS: Chol/HDL Ratio 2.32 Ratio; LDL Cholesterol,Calculated 35.7 mg/dL (0.0-131.0); VLDL Calculation 17.74 mg/dL (5.00-40.00)
[2025-02-03] MEDS ORDERED: METOPROLOL SUCCINATE (ER) 50 MG TAB.ER.24H PO SCH (09:00)
[2025-02-03] MEDS ORDERED: ASPIRIN 325 MG TAB PEG/G-TUBE SCH (09:00)
[2025-02-03] MEDS ORDERED: LEVOTHYROXINE 50 MCG TAB PO SCH (09:00)
[2025-02-03] MEDS: ENOXAPARIN 40 MG/0.4 ML SYRINGE SQ SCH (09:35)
[2025-02-03] MEDS: ATORVASTATIN 10 MG TAB PEG/G-TUBE SCH (09:36)
[2025-02-03] MEDS: ASPIRIN 81 MG PEG/G-TUBE SCH (09:37)
[2025-02-03] MEDS: ABALOPARATIDE SQ SCH (09:39)
[2025-02-03] MEDS ORDERED: IPRATROPIUM-ALBUTEROL 3 ML NEB INHALATION PRN (09:44)
--- NOTE | 2025-02-03 11:24 | US ---
EXAMINATION TYPE: US carotid duplex BILAT DATE OF EXAM: 02/03/2025 COMPARISON: NONE CLINICAL INDICATION: Male, 64 years old with history of stroke. left sided numbness; stroke limited due to tracheotomy and scarring. Additional History: .... TECHNIQUE: Grayscale, color Doppler and spectral Doppler evaluation of the bilateral carotid systems and vertebral arteries. Indirect Doppler criteria was utilized. FINDINGS: EXAM MEASUREMENTS: RIGHT: Peak Systolic Velocity (PSV) cm/sec ----- Right CCA: 102 ----- Right ICA: 157 ----- Right ECA: 86.9 ICA/CCA ratio: 1.5 RIGHT: End Diastole cm/sec ----- Right CCA: 27.9 ----- Right ICA: 39.3 ----- Right ECA: 17.2 LEFT: Peak Systolic Velocity (PSV) cm/sec ----- Left CCA: 217 ----- Left ICA: 107 ----- Left ECA: 98.4 ICA/CCA ratio: 0.5 LEFT: End Diastole cm/sec ----- Left CCA: 32.1 ----- Left ICA: 38.5 ----- Left ECA: 16.4 VERTEBRALS (direction of flow): Right Vertebral: Antegrade Left Vertebral: Antegrade Rhythm: Normal BOARD WORKER NOTES: Bilateral plaque seen narrowing of Left ECA unable to visualize Left CCA due to sc arring and tracheotomy. Color Doppler imaging shows patency with blood flow throughout the carotid artery. Spectral waveforms are within normal limits. IMPRESSION: Right: No hemodynamically significant stenosis. Left: Less than 50% stenosis of the carotid bifurcation. Criteria for Assigning % of Stenosis / Diameter reduction (Estimation based on the indirect measurements of the internal carotid artery velocities (ICA PSV). 1. Normal (no stenosis)=ICA PSV < 180 cm/s: ratio < 2.0: ICA EDV<40 cm/s. 2. Less than 50% stenosis=ICA PSV < 180 cm/s: ratio < 2.0: ICA EDV<40 cm/s. 3. 50 to 69% stenosis=ICA PSV of 180 to 230 cm/s: ration 2.0 ? 4.0: ICA EDV 40-100 cm/s. PSV 125-180 cm/sec and ICA/CCA PSV Ratio ? 2.0 is also consistent with 50-69% stenosis 4. Greater than 70% stenosis to near occlusion= ICA PSV > 230 cm/s: ratio > 4.0: ICA EDV > 100 cm/s. 5. Near occlusion= ICA PSV velocities may be low or undetectable: variable ratio and ICA EDV. 6. Total occlusion=unable to detect flow. [facility], , 02/03/2025 11:22 AM
[2025-02-03 14:29] VITALS: BP 123/66; PULSE 114; RESP 20
--- NOTE | 2025-02-03 15:07 | P.PN ---
Subjective Progress Note Date: 02/03/25 I am seeing the patient for the first time during this hospital visit. Please refer to Dr. Longoria's note for further details. It seems the patient presents for left sided numbness and had mild headache. Trung sara denies neck pain. He feels back to baseline. He denies any new neurological issues. Objective - Vital Signs Vital signs: Vital Signs Temp 96.8 F L 02/03/25 13:45 Pulse 114 H 02/03/25 13:45 Resp 20 02/03/25 13:45 BP 123/66 02/03/25 13:45 Pulse Ox 92 L 02/03/25 13:45 FiO2 21 02/02/25 20:04 Intake & Output 02/02/25 02/03/25 02/03/25 18:59 06:59 18:59 Weight 64.093 kg Other: # Voids 1 2 - Exam General: Lying in bed and is not in acute distress. HENT: Trach. Neuro: The patient is awake, alert, oriented to self, place and time. Had hard time understanding patient because of his trach. Is following commands appropriately. VFF to confrontation throughout. No facial weakness. Motor: strength is 5/5 throughout. sensation is normal to touch throughout. Cerebellar: Normal finger to nose bilaterally. - Labs CBC & Chem 7: 02/02/25 02:54 02/02/25 02:54 Labs: Microbiology - Last 24 Hours (Table) 02/02/25 11:22 Gram Stain - Preliminary Abdomen Assessment and Plan Assessment: 1. Left sided numbness, currently resolved. The patient has a focal, nonlateralizing neurological examination. Likely symptoms are secondary to transient ischemic attack 2. History of head and neck cancer status post tracheostomy and PEG tube placement Plan: Pending 2D echocardiogram Ordered carotid duplex Dual antiplatelet therapy for 21 days, then continue with Plavix monotherapy thereafter Continue neuro checks Continue cardiac monitoring PT, OT and HORTICULTURE INSTRUCTOR are consulted. Will defer the rest of medical management to primary team. Upon discharge, recommend the patient to follow-up with neurologist as outpatie nt within 2-3 weeks. The plan is discussed with patient and his nurse. Time with Patient: Less than 30
--- NOTE | 2025-02-03 15:50 | CA ---
Transthoracic Echo Report Name: Blake Brown Age: 64 Gender: M : 1960 Exam Date: 02/03/2025 14:00 Exam Location: [facility] Ht (in): 72 Wt (lb): 141 Ordering Physician: Zenobia Longoria DO Attending/Referring Phys: News Clipping Cutter Olga Lidia De La Cruz RDCS Procedure CPT: Indications: tia Cardiac Hx: Technical Quality: Fair, Technically difficult study Contrast 1: Definity Total Dose (mL): 2 Contrast 2: Agitated Saline Total Dose (mL): 10 MEASUREMENTS (Male / Female) Normal Values 2D ECHO LV Diastolic Diameter PLAX 5.5 cm 4.2 - 5.9 / 3.9 - 5.3 cm LV Systolic Diameter PLAX 3.5 cm IVS Diastolic Thickness 1.0 cm 0.6 - 1.0 / 0.6 - 0.9 cm LVPW Diastolic Thickness 0.9 cm 0.6 - 1.0 / 0.6 - 0.9 cm LV Relative Wall Thickness 0.3 RV Internal Dim ED PLAX 2.3 cm LVOT Diameter 2.2 cm LA Systolic Diameter LX 3.4 cm 3.0 - 4.0 / 2.7 - 3.8 cm LV Diastolic Volume MOD 4C 112.5 cm??? LV Systolic Volume MOD 4C 90.8 cm??? LV Ejection Fraction MOD 4C 19.3 % LV Cardiac Index MOD 4C 850.9 cm???/min???m??? LV Diastolic Length 4C 8.6 cm LV Systolic Length 4C 7.5 cm M-MODE Aortic Root Diameter MM 3.7 cm LA Systolic Diameter MM 3.1 cm LA Ao Ratio MM 0.9 AV Cusp Separation MM 1.8 cm DOPPLER MV Area PHT 3.1 cm??? Mitral E Point Velocity 74.0 cm/s Mitral A Point Velocity 63.3 cm/s Mitral E to A Ratio 1.2 MV Deceleration Time 243.2 ms FINDINGS Left Ventricle Left ventricular ejection fraction is estimated at 20%. Mildly increased left ventricular wall thickness. Left ventricular cavity size normal. Severely reduced global left ventricular systolic function. Right Ventricle Right ventricle not well visualized. Unable to estimate the right ventricular systolic pressure. Right Atrium Right atrium not well visualized. Negative agitated saline bubble study for right to left shunt. Left Atrium Mild left atrial dilatation. Mitral Valve Structurally normal mitral valve. Trace to mild mitral regurgitation. No mitral stenosis. Aortic Valve Trileaflet aortic valve. No aortic valve stenosis or regurgitation. Tricuspid Valve Structurally normal tricuspid valve. Trace tricuspid regurgitation. No tricuspid stenosis. Pulmonic Valve Structurally normal pulmonic valve. Trace pulmonic regurgitation. No pulmonic stenosis. Pericardium No pericardial effusion. Left pleural effusion. Aorta Aorta at upper limits of normal. CONCLUSIONS Left ventricular ejection fraction 20% Trace to mild mitral regurgitation Negative bubble study Trace tricuspid regurgitation Previewed by: Dr. Hu Zhang DO (Electronically Signed) Final Date: 03 February 2025 15:50
[2025-02-03] MEDS: CEPHALEXIN 250 MG/5 ML SUSPENSION PEG/G-TUBE SCH (16:35)
== END 2025-02-03 17:26 | disposition home health service (06) ==
LOC: EC 02:35 → 6NMEDSUR 06:44
PROVIDERS: ADMIT Hospitalist; ATTEND Hospitalist
DX: R20.0 Anesthesia of skin (principal); R42 Dizziness and giddiness; K94.22 Gastrostomy infection; F32.A Depression, unspecified; F41.9 Anxiety disorder, unspecified; J44.9 Chronic obstructive pulmonary disease, unspecified; K21.9 Gastro-esophageal reflux disease without esophagitis; G62.9 Polyneuropathy, unspecified; E03.9 Hypothyroidism, unspecified; G89.29 Other chronic pain; E78.5 Hyperlipidemia, unspecified; I25.2 Old myocardial infarction; F17.200 Nicotine dependence, unspecified, uncomplicated; Z85.89 Personal history of malignant neoplasm of other organs and systems; Z79.82 Long term (current) use of aspirin; Z79.890 Hormone replacement therapy; Z79.899 Other long term (current) drug therapy; Z85.819 Personal history of malignant neoplasm of unspecified site of lip, oral cavity, and pharynx
CPT/HCPCS: 96376; 96372; 96374; 99285; 36415; 94640 ×2; 93005; 97162; 92523; 80061; 80053; 82550; 84484; 85025; 85610; 85730; 87070; 87205; 87075; 87077; 87186; 71045; 93880; 70450; G0378 ×2; C8929; J1650; J2470 ×2; 93306